=== PATIENT | male | born 1965 | race Asian ===

== ENCOUNTER 2018-10-11 14:09 | Inpatient (IN) | payer SELFPAY ==
[~2018-10-11] VITALS: Ht 170.2 cm; Wt 68.0 kg
[2018-10-11] VITALS (14 sets, daily range): BP systolic 77–108; BP diastolic 46–83
[2018-10-11] MEDS ORDERED: Cefepime HCl 1 GM in NS 55 ML IV STA (14:15)
[2018-10-11] MEDS ORDERED: Acetaminophen 650 MG SUPP RECTAL ONE (14:15)
[2018-10-11] MEDS ORDERED: Vancomycin 1 GM in NS 275 ML IV ONE (14:15)
--- NOTE | 2018-10-11 14:21 | NUR ---
ED Nurse Note: Patient brought in by ambulance RA [id number] from [facility], chief complaint is fever. Rectal temp 102.[address] Yarbrough made aware. patient is on mechanical vent.
--- NOTE | 2018-10-11 14:21 | Emergency Room Report ---
History of Present Illness General Chief Complaint: Fever Source: EMS Present Illness HPI Patient presents with altered level of consciousness. Apparently there was some respiratory distress and his oxygen saturation was low at 87% before suctioning. Paramedics found that oxygen saturation was 97%. He has a tracheostomy tube. They continue high flow oxygen on the way in. His blood pressure was low and a fluid bolus was begun. He had a 22-gauge IV was established in the field. According to paramedics patient is Full Code. POLST not available H/O CVA H/O tracg H/O G tube Allergies: Coded Allergies: No Known Allergies (Unverified , 10/11/18) Patient History Limited by: medical condition Past Medical History: see triage record Past Surgical History: other - Tracheostomy, gastrostomy Social [facility] Nursing Documentation: PMH: Agreed; PSxH: Agreed Nursing Documentation-PM Past Medical History: No History, Except For Hx Diabetes: Yes Hx Cerebrovascular Accident: Yes Review of Systems All Other Systems: limited Physical Exam Vital Signs Date Time Temp Pulse Resp B/P (MAP) Pulse Ox O2 Delivery O2 Flow Rate FiO2 10/11/18 14:11 147 22 92/58 100 Mechanical Ventilator 10/11/18 14:42 80 10/11/18 14:48 60.0 10/11/18 15:23 102.8 General Appearance: thin, Chronically Ill, Stupor Head: normocephalic, atraumatic Eyes: bilateral eye PERRL ENT: dry mucus membranes Neck: supple, tracheotomy Respiratory: respiratory distress, rales, rhonchi Cardiovascular #1: tachycardia Cardiovascular #2: 2+ radial (R), 2+ femoral (R) Gastrointestinal: non tender, other - Gastrostomy, decreased bowel sounds Genitourinary: penis normal Musculoskeletal: other Neurologic: responsive - But decreased mentation, DTRs symmetric - Decreased, other Psychiatric: other - Unresponsive to pain Skin: mottled, other - Febrile Procedures Critical Care Time Critical Care Time Total Critical Care Time: 90 min bedside evaluation and treatment excludes procedures (EKG, CVP, replacement of tracheostomy). Reason for critical care: Severe sepsis, hypotension, tracheostomy malfunction Possible complications: hypotension, hypertension, MA, shock, arrhythmias, metabolic acidosis, end organ damage, respiratory failure. Interventions: Fluid resuscitation, antibiotics, repeat evaluations discussion with admitting physician Course: Patient presented with fever, hypotension and respiratory distress. Fluid resuscitation begun and evaluation for sepsis. Lack of IV access and hypotension necessitated central line. Patient still hypotensive after fluid bolus and resuscitation and levo fed begun. Tracheostomy with balloon leak necessitated replacing tracheostomy. Blood pressure improved on Levophed and patient in less respiratory distress. Blood gas reviewed. Admitted to ICU. Consultations: nursing staff, EMS, RT, admitting MD Performed by: Dr. Yarbrough Tolerated well condition = critical but improved Central Line Central Line : Consent: Emergent Central Line Lumen: triple Maximal Sterile Barrier Tech: yes cap, yes mask, yes sterile gown, yes sterile gloves, yes large sterile sheet, yes hand hygiene, yes chlorhexidine prep Central Line Postion: femoral (R) Anesthesia: None Complications: none Central Line Post Position: sutured, good blood return Attempts: One Patient Tolerated: Well Complications: None Progress EBL = 5 ml Additional Procedure Procedure Narrative Replaced trach as not getting volumes. Old trach removed with suction. New trach replaced with ease. Secured by RT. Medical Decision Making Diagnostic Impression: Primary Impression: Severe sepsis Additional Impressions: Pneumonia Qualified Codes: J18.9 - Pneumonia, unspecified organism UTI (urinary tract infection) Qualified Codes: N39.0 - Urinary tract infection, site not specified Renal failure Qualified Codes: N17.9 - Acute kidney failure, unspecified ER Course Patient presents with fever, hypotension and respiratory distress and hypoxia. Differential includes pneumonia, sepsis, severe sepsis amongst others. He also need to exclude myocardial infarction. Patient will be evaluated with EKG, chest x-ray and labs. The patient needs to be placed on a ventilator illness he had some respiratory distress at this time. BP better but still tachycardic. Less resp distress. CVP started as poor IV access. Unchanged MS. Still hot and good cap fill 14:55. EKG ST. CXR with right infiltrate. Leukocytosis with minimal anemia. Acute renal failure. Elevated lactic acid pyuria. Triple antibiotics begun. Start levophed as BP still low. Replaced tracheostomy as there is a little leak in the patients not receiving tidal volumes. Blood gas acceptable. Dr. Flores covered by Dr. Carter who cannot admit the patient. Discussed in detail with Dr. Aaron. Vital signs improved on Levophed. Lactate is improving. Less resp distress. Laboratory Tests Test 10/11/18 14:23 10/11/18 15:00 10/11/18 16:01 10/11/18 17:10 White Blood Count 13.8 K/UL (4.8-10.8) H Red Blood Count 3.23 M/UL (4.70-6.10) L Hemoglobin 10.2 G/DL (14.2-18.0) L Hematocrit 30.2 % (42.0-52.0) L Mean Corpuscular Volume 94 FL (80-99) Mean Corpuscular Hemoglobin 31.7 PG (27.0-31.0) H Mean Corpuscular Hemoglobin Concent 33.8 G/DL (32.0-36.0) Red Cell Distribution Width 13.5 % (11.6-14.8) Platelet Count 345 K/UL (150-450) Mean Platelet Volume 5.1 FL (6.5-10.1) L Neutrophils (%) (Auto) 75.5 % (45.0-75.0) H Lymphocytes (%) (Auto) 19.4 % (20.0-45.0) L Monocytes (%) (Auto) 4.2 % (1.0-10.0) Eosinophils (%) (Auto) 0.1 % (0.0-3.0) Basophils (%) (Auto) 0.8 % (0.0-2.0) Prothrombin Time 13.1 SEC (9.30-11.50) H Prothrombin Time INR 1.3 (0.9-1.1) H PTT 33 SEC (23-33) Sodium Level 132 MMOL/L (136-145) L Potassium Level 4.7 MMOL/L (3.5-5.1) Chloride Level 97 MMOL/L (98-107) L Carbon Dioxide Level 22 MMOL/L (21-32) Anion Gap 13 mmol/L (5-15) Blood Urea Nitrogen 63 mg/dL (7-18) H Creatinine 2.0 MG/DL (0.55-1.30) H Estimate Glomerular Filtration Rate 35.3 mL/min (>60) Glucose Level 184 MG/DL (74-106) H Lactic Acid Level 5.50 mmol/L (0.4-2.0) H 2.80 mmol/L (0.66-2.22) H Calcium Level 10.1 MG/DL (8.5-10.1) Magnesium Level 1.8 MG/DL (1.8-2.4) Total Bilirubin 0.2 MG/DL (0.2-1.0) Aspartate Amino Transferase (AST) 66 U/L (15-37) H Alanine Aminotransferase (ALT) 53 U/L (12-78) Alkaline Phosphatase 178 U/L (46-116) H Total Creatine Kinase 540 U/L (26-308) H Troponin I 0.221 ng/mL (0.000-0.056) Pro-B-Type Natriuretic Peptide 595 pg/mL (0-125) H Total Protein 8.5 G/DL (6.4-8.2) H Albumin 2.5 G/DL (3.4-5.0) L Globulin 6.0 g/dL Albumin/Globulin Ratio 0.4 (1.0-2.7) L Urine Color Yellow Urine Appearance Turbid Urine pH 5 (4.5-8.0) Urine Specific Branch 1.015 (1.005-1.035) Urine Protein 2+ (NEGATIVE) H Urine Glucose (UA) Negative (NEGATIVE) Urine Ketones Negative (NEGATIVE) Urine Blood 5+ (NEGATIVE) H Urine Nitrite Negative (NEGATIVE) Urine Bilirubin Negative (NEGATIVE) Urine Urobilinogen Normal MG/DL (0.0-1.0) Urine Leukocyte Esterase 3+ (NEGATIVE) H Urine RBC Tntc /HPF (0 - 0) H Urine WBC Tntc /HPF (0 - 0) H Urine Squamous Epithelial Cells Occasional /LPF Urine Calcium Oxalate Crystals Few /LPF (NONE) Urine Bacteria Many /HPF (NONE) H Arterial Blood pH 7.408 (7.350-7.450) Arterial Blood Partial Pressure CO2 30.9 mmHg (35.0-45.0) L Arterial Blood Partial Pressure O2 74.8 mmHg (75.0-100.0) L Arterial Blood HCO3 19.1 mmol/L (22.0-26.0) L Arterial Blood Oxygen Saturation 92.9 % (95-100) L Arterial Blood Base Excess -5.0 (-2-2) L José Miguel Test Positive Test 10/11/18 19:45 10/11/18 21:10 10/11/18 22:00 White Blood Count 12.2 K/UL (4.8-10.8) H Red Blood Count 2.55 M/UL (4.70-6.10) L Hemoglobin 8.1 G/DL (14.2-18.0) L Hematocrit 23.8 % (42.0-52.0) L Mean Corpuscular Volume 93 FL (80-99) Mean Corpuscular Hemoglobin 31.8 PG (27.0-31.0) H Mean Corpuscular Hemoglobin Concent 34.1 G/DL (32.0-36.0) Red Cell Distribution Width 13.5 % (11.6-14.8) Platelet Count 241 K/UL (150-450) Mean Platelet Volume 5.1 FL (6.5-10.1) L Neutrophils (%) (Auto) 79.8 % (45.0-75.0) H Lymphocytes (%) (Auto) 17.8 % (20.0-45.0) L Monocytes (%) (Auto) 1.9 % (1.0-10.0) Eosinophils (%) (Auto) 0.1 % (0.0-3.0) Basophils (%) (Auto) 0.5 % (0.0-2.0) Sodium Level 136 MMOL/L (136-145) Potassium Level 4.6 MMOL/L (3.5-5.1) Chloride Level 105 MMOL/L (98-107) Carbon Dioxide Level 22 MMOL/L (21-32) Anion Gap 9 mmol/L (5-15) Blood Urea Nitrogen 51 mg/dL (7-18) H Creatinine 1.4 MG/DL (0.55-1.30) H Estimate Glomerular Filtration Rate 53.2 mL/min (>60) Glucose Level 168 MG/DL (74-106) H Hemoglobin A1c 9.0 % (4.3-6.0) H Lactic Acid Level 2.40 mmol/L (0.4-2.0) H 3.00 mmol/L (0.66-2.22) H Calcium Level 8.2 MG/DL (8.5-10.1) L Troponin I 0.261 ng/mL (0.000-0.056) Thyroid Stimulating Hormone (TSH) 0.415 uiU/mL (0.358-3.740) Arterial Blood pH 7.390 (7.350-7.450) Arterial Blood Partial Pressure CO2 32.5 mmHg (35.0-45.0) L Arterial Blood Partial Pressure O2 109.5 mmHg (75.0-100.0) H Arterial Blood HCO3 19.2 mmol/L (22.0-26.0) L Arterial Blood Oxygen Saturation 97.4 % (95-100) Arterial Blood Base Excess -5.1 (-2-2) L José Miguel Test Positive EKG Diagnostic Results Rate: tachycardiac ST Segments: no acute changes Rhythm Strip Diag. Results EP Interpretation: yes Rhythm: no PVC's, no ectopy, other - ST Chest X-Ray Diagnostic Results Chest X-Ray Diagnostic Results : Chest X-Ray Ordered: Yes # of Views/Limited/Complete: 1 View Indication: Other EP Interpretation: Yes Interpretation: no effusion, no pneumothorax, other - bilat infiltrates, trach , more on R Impression: Other Electronically Signed by: Electronically signed by Jorge A Yarbrough MD Last Vital Signs Date Time Temp Pulse Resp B/P (MAP) Pulse Ox O2 Delivery O2 Flow Rate FiO2 10/12/18 00:00 98.3 107 24 102/67 (79) 100 10/11/18 23:01 40 10/11/18 19:17 Mechanical Ventilator 6.0 Status: improved Disposition: ADMITTED INPATIENT Condition: Critical Jorge A Yarbrough MD Oct 11, 2018 14:21
[2018-10-11 14:45] LABS: BASOPHILS % (AUTO) 0.8 % (0.0-2.0); EOSINOPHILS % (AUTO) 0.1 % (0.0-3.0); HEMATOCRIT 30.2 % (42.0-52.0); HEMOGLOBIN 10.2 G/DL (14.2-18.0); LYMPHOCYTES % (AUTO) 19.4 % (20.0-45.0); MEAN CORPUSCULAR VOLUME 94 FL (80-99); MONOCYTES % (AUTO) 4.2 % (1.0-10.0); NEUTROPHILS % (AUTO) 75.5 % (45.0-75.0); PLATELET COUNT 345 K/UL (150-450); RED BLOOD COUNT 3.23 M/UL (4.70-6.10); RED CELL DISTRIBUTION WIDTH 13.5 % (11.6-14.8); WHITE BLOOD COUNT 13.8 K/UL (4.8-10.8)
[2018-10-11 14:51] LABS: INR 1.3 (0.9-1.1)
[2018-10-11 14:59] LABS: ANION GAP 13 mmol/L (5-15); BLOOD UREA NITROGEN 63 mg/dL (7-18); CALCIUM 10.1 MG/DL (8.5-10.1); CARBON DIOXIDE 22 MMOL/L (21-32); CHLORIDE 97 MMOL/L (98-107); POTASSIUM 4.7 MMOL/L (3.5-5.1); SODIUM 132 MMOL/L (136-145)
[2018-10-11 15:15] LABS: ALANINE AMINOTRANSFERASE 53 U/L (12-78); ALBUMIN 2.5 G/DL (3.4-5.0); ALBUMIN/GLOBULIN RATIO 0.4 (1.0-2.7); ALKALINE PHOSPHATASE 178 U/L (46-116); ASPARTATE AMINO TRANSFERASE 66 U/L (15-37); BILIRUBIN,TOTAL 0.2 MG/DL (0.2-1.0); CREATINE KINASE 540 U/L (26-308)
--- NOTE | 2018-10-11 15:23 | NUR ---
ED Nurse Note: Dr. Yarbrough made aware of the low BP, see flowsheet, Dr. Yarbrough said to monitor with bolus being infusing.
[2018-10-11] MEDS ORDERED: Albuterol/Ipratropium 3ml neb HHN STA (15:44)
[2018-10-11 15:49] LABS: APPEARANCE,URINE TURBID; BILIRUBIN, URINE NEGATIVE (NEGATIVE); GLUCOSE, URINE (UA) NEGATIVE (NEGATIVE); KETONES,URINE NEGATIVE (NEGATIVE); LEUKOCYTE ESTERASE ,URINE 3+ (NEGATIVE); NITRITE,URINE NEGATIVE (NEGATIVE); PH,URINE 5 (4.5-8.0); PROTEIN,URINE 2+ (NEGATIVE); UROBILINOGEN,URINE NORMAL MG/DL (0.0-1.0)
[2018-10-11 15:50] LABS: COLOR,URINE YELLOW
--- NOTE | 2018-10-11 16:57 | Diagnostic Imaging Report ---
Indication: Shortness of breath Technique: One view of the chest Comparison: none Findings: Bilateral mostly interstitial infiltrates are seen in the mid and lower lungs, right slightly greater than left. The pleural spaces are clear. Heart size is normal. There is a tracheostomy Impression: Bilateral right greater than left mostly interstitial infiltrates. Appearance nonspecific as regards etiology. Correlate with clinical findings
--- NOTE | 2018-10-11 17:49 | NUR ---
ED Nurse Note: Patient's BP was 91/58 with Levophed drip on 28mcg/min. endorsed to Safia SHARIF
--- NOTE | 2018-10-11 17:50 | NUR ---
ED Nurse Note: report given to KOLE Baig patient transferred to ICU, endorsed all plan of care. Patient's BP was 91/58, Dr. Yarbrough made aware. upon assessment, sacral pressure ulcer was noted and border dressing was applied, unable to take picture, endorsed to Safia SHARIF.
--- NOTE | 2018-10-11 18:00 | NUR ---
NURSE NOTES: Pt arrived in the unit via gurney. No belongings. Pt is obtunded. Sinus tachy in 110-120's. Trach to vent. S 6, AC 16, TV 450, FiO2 40%, P 5. No respiratory distress noted. GT in place. Castrejon in place draining to gravity. Stage 2 open wound on sacrum noted. Would picture taken and uploaded. Dressing done per wound care protocol. Right femoral TLC patent and asymptomatic. Bed in lowest position. Side rails up x3. Will resume plan of care.
[2018-10-11] MEDS ORDERED: ASPIR 8181 MG GT (18:19)
[2018-10-11] MEDS ORDERED: ATORVASTATIN CA40 MG GT (18:19)
[2018-10-11] MEDS ORDERED: PANTOPRAZOLE SO40 MG GT (18:19)
[2018-10-11] MEDS ORDERED: VITAMIN D400 INTLU GT (18:19)
[2018-10-11] MEDS ORDERED: HEPARIN SO5000 UNIT2 SUBQ (18:19)
[2018-10-11] MEDS ORDERED: Acetaminophen 650 MG SUPP RECTAL PRN (19:00)
[2018-10-11] MEDS ORDERED: Vasopressin 100 UNITS in NS 95 ML IV SCH (19:00)
[2018-10-11] MEDS ORDERED: Midazolam 2mg/2ml Inj IVP PRN (19:00)
[2018-10-11] MEDS ORDERED: Albuterol/Ipratropium 3ml neb HHN PRN (19:00)
--- NOTE | 2018-10-11 19:00 | NUR ---
NURSE NOTES: Called Dr Aaron for admission orders at 1824. Dr Lou called back. Updated doctor with pt's current condition. Orders received, noted, and carried out.
--- NOTE | 2018-10-11 19:20 | NUR ---
HAND-OFF: Report given to KOLE Rankin.
[2018-10-11] MEDS: D5NS 1,000 ML IV SCH (19:32)
--- NOTE | 2018-10-11 19:35 | NUR ---
CASE MANAGEMENT: REVIEW 53/M HUGH FROM [facility] CC: FEVER SI: SEPSIS . PNA . UTI T 102.8 HR 144 RR 38 BP 81/62 SAT 99% MECH VENT FIO2 80 WBC 13.8 NA 132 BUN 63 CR 2.0 LACTIC ACID 5.50 TROPONIN I 0.221 IS: TYLENOL RECTAL X1 NS IVF BOLUS X1 LEVOFLOXACIN IV X1 CEFEPIME IV X1 VANCO IV X1 ALBUTEROL HHN X1 LEVOPHED IV X1 PATIENT ADMITTED TO ICU 10/11/2018 DCP: PATIENT IS FROM [facility] Addendum: 10/15/18 at 0913 by Magdalena Mireles INTERQUAL MET FOR ACUTE- SH
--- NOTE | 2018-10-11 20:00 | NUR ---
NURSE NOTES: Patient received from Gifty SHARIF. Patient is obtunded, does not open eyes to stimulus, responds to localized pain. Patient is trached to ventilator with settings of AC 16, 450tv, 40% fio2 and peep of 5. Patient noted to have Castrejon and G-tube. Patient currently NPO status. Patient running Levophed, Vasopressin and D5NS at 100ml/hr via R femoral TLC, client also has R hand 22G SL. Client noted to have Sacral wound.
[2018-10-11 20:08] LABS: BASOPHILS % (AUTO) 0.5 % (0.0-2.0); EOSINOPHILS % (AUTO) 0.1 % (0.0-3.0); HEMATOCRIT 23.8 % (42.0-52.0); HEMOGLOBIN 8.1 G/DL (14.2-18.0); LYMPHOCYTES % (AUTO) 17.8 % (20.0-45.0); MEAN CORPUSCULAR VOLUME 93 FL (80-99); MONOCYTES % (AUTO) 1.9 % (1.0-10.0); NEUTROPHILS % (AUTO) 79.8 % (45.0-75.0); PLATELET COUNT 241 K/UL (150-450); RED BLOOD COUNT 2.55 M/UL (4.70-6.10); RED CELL DISTRIBUTION WIDTH 13.5 % (11.6-14.8); WHITE BLOOD COUNT 12.2 K/UL (4.8-10.8)
[2018-10-11 20:41] LABS: ANION GAP 9 mmol/L (5-15); BLOOD UREA NITROGEN 51 mg/dL (7-18); CALCIUM 8.2 MG/DL (8.5-10.1); CARBON DIOXIDE 22 MMOL/L (21-32); CHLORIDE 105 MMOL/L (98-107); CREATININE 1.4 MG/DL (0.55-1.30); POTASSIUM 4.6 MMOL/L (3.5-5.1); SODIUM 136 MMOL/L (136-145)
[2018-10-11] MEDS: Heparin 5000 units/ml inj SUBQ SCH (21:00)
--- NOTE | 2018-10-11 21:22 | Cardiology Progress Note ---
Assessment/Plan Assessment/Plan The patient is seen and examined, full consult note is dictated. Objective Last 24 Hour Vital Signs Date Time Temp Pulse Resp B/P (MAP) Pulse Ox O2 Delivery O2 Flow Rate FiO2 10/11/18 21:00 107 30 40 10/11/18 19:27 91/58 10/11/18 19:17 99.8 135 23 91/58 100 Mechanical Ventilator 6.0 40 10/11/18 19:16 99.8 135 23 91/58 100 Mechanical Ventilator 6.0 40 10/11/18 19:00 118 83/52 (62) 10/11/18 18:42 118 25 40 10/11/18 18:30 118 88/50 (63) 10/11/18 18:23 118 10/11/18 18:00 Mechanical Ventilator 10/11/18 18:00 40 10/11/18 18:00 120 77/46 (56) 10/11/18 18:00 98.1 10/11/18 17:43 88/51 10/11/18 17:38 81/59 10/11/18 17:33 Mechanical Ventilator 10/11/18 17:33 85/49 10/11/18 17:28 82/48 10/11/18 17:22 81/49 10/11/18 17:18 82/58 10/11/18 17:14 123 30 40 10/11/18 17:13 81/48 10/11/18 17:08 82/50 10/11/18 17:03 81/51 10/11/18 16:58 79/51 10/11/18 16:53 79/51 10/11/18 16:48 78/48 10/11/18 16:43 73/49 10/11/18 16:38 71/48 10/11/18 16:33 74/45 10/11/18 16:28 73/41 10/11/18 16:23 74/47 10/11/18 16:07 126 28 98 Mechanical Ventilator 40 10/11/18 15:58 127 32 99 Mechanical Ventilator 40 10/11/18 15:58 40 10/11/18 15:54 102.8 123 23 94/47 100 Mechanical Ventilator 60.0 40 10/11/18 15:54 128 23 Mechanical Ventilator 60.0 40 10/11/18 15:23 102.8 135 23 81/62 100 Mechanical Ventilator 60.0 40 10/11/18 15:08 40 10/11/18 14:48 142 38 Mechanical Ventilator 60.0 80 10/11/18 14:42 144 36 80 10/11/18 14:11 147 22 92/58 100 Mechanical Ventilator Laboratory Tests Test 10/11/18 14:23 10/11/18 15:00 10/11/18 16:01 10/11/18 17:10 White Blood Count 13.8 K/UL (4.8-10.8) H Red Blood Count 3.23 M/UL (4.70-6.10) L Hemoglobin 10.2 G/DL (14.2-18.0) L Hematocrit 30.2 % (42.0-52.0) L Mean Corpuscular Volume 94 FL (80-99) Mean Corpuscular Hemoglobin 31.7 PG (27.0-31.0) H Mean Corpuscular Hemoglobin Concent 33.8 G/DL (32.0-36.0) Red Cell Distribution Width 13.5 % (11.6-14.8) Platelet Count 345 K/UL (150-450) Mean Platelet Volume 5.1 FL (6.5-10.1) L Neutrophils (%) (Auto) 75.5 % (45.0-75.0) H Lymphocytes (%) (Auto) 19.4 % (20.0-45.0) L Monocytes (%) (Auto) 4.2 % (1.0-10.0) Eosinophils (%) (Auto) 0.1 % (0.0-3.0) Basophils (%) (Auto) 0.8 % (0.0-2.0) Prothrombin Time 13.1 SEC (9.30-11.50) H Prothromb Time International Ratio 1.3 (0.9-1.1) H Activated Partial Thromboplast Time 33 SEC (23-33) Sodium Level 132 MMOL/L (136-145) L Potassium Level 4.7 MMOL/L (3.5-5.1) Chloride Level 97 MMOL/L (98-107) L Carbon Dioxide Level 22 MMOL/L (21-32) Anion Gap 13 mmol/L (5-15) Blood Urea Nitrogen 63 mg/dL (7-18) H Creatinine 2.0 MG/DL (0.55-1.30) H Estimat Glomerular Filtration Rate 35.3 mL/min (>60) Glucose Level 184 MG/DL (74-106) H Lactic Acid Level 5.50 mmol/L (0.4-2.0) H 2.80 mmol/L (0.66-2.22) H Calcium Level 10.1 MG/DL (8.5-10.1) Magnesium Level 1.8 MG/DL (1.8-2.4) Total Bilirubin 0.2 MG/DL (0.2-1.0) Aspartate Amino Transf (AST/SGOT) 66 U/L (15-37) H Alanine Aminotransferase (ALT/SGPT) 53 U/L (12-78) Alkaline Phosphatase 178 U/L (46-116) H Total Creatine Kinase 540 U/L (26-308) H Troponin I 0.221 ng/mL (0.000-0.056) Pro-B-Type Natriuretic Peptide 595 pg/mL (0-125) H Total Protein 8.5 G/DL (6.4-8.2) H Albumin 2.5 G/DL (3.4-5.0) L Globulin 6.0 g/dL Albumin/Globulin Ratio 0.4 (1.0-2.7) L Urine Color Yellow Urine Appearance Turbid Urine pH 5 (4.5-8.0) Urine Specific [place] 1.015 (1.005-1.035) Urine Protein 2+ (NEGATIVE) H Urine Glucose (UA) Negative (NEGATIVE) Urine Ketones Negative (NEGATIVE) Urine Blood 5+ (NEGATIVE) H Urine Nitrite Negative (NEGATIVE) Urine Bilirubin Negative (NEGATIVE) Urine Urobilinogen Normal MG/DL (0.0-1.0) Urine Leukocyte Esterase 3+ (NEGATIVE) H Urine RBC Tntc /HPF (0 - 0) H Urine WBC Tntc /HPF (0 - 0) H Urine Squamous Epithelial Cells Occasional /LPF Urine Calcium Oxalate Crystals Few /LPF (NONE) Urine Bacteria Many /HPF (NONE) H Arterial Blood pH 7.408 (7.350-7.450) Arterial Blood Partial Pressure CO2 30.9 mmHg (35.0-45.0) L Arterial Blood Partial Pressure O2 74.8 mmHg (75.0-100.0) L Arterial Blood HCO3 19.1 mmol/L (22.0-26.0) L Arterial Blood Oxygen Saturation 92.9 % (95-100) L Arterial Blood Base Excess -5.0 (-2-2) L José Miguel Test Positive Test 10/11/18 19:45 White Blood Count 12.2 K/UL (4.8-10.8) H Red Blood Count 2.55 M/UL (4.70-6.10) L Hemoglobin 8.1 G/DL (14.2-18.0) L Hematocrit 23.8 % (42.0-52.0) L Mean Corpuscular Volume 93 FL (80-99) Mean Corpuscular Hemoglobin 31.8 PG (27.0-31.0) H Mean Corpuscular Hemoglobin Concent 34.1 G/DL (32.0-36.0) Red Cell Distribution Width 13.5 % (11.6-14.8) Platelet Count 241 K/UL (150-450) Mean Platelet Volume 5.1 FL (6.5-10.1) L Neutrophils (%) (Auto) 79.8 % (45.0-75.0) H Lymphocytes (%) (Auto) 17.8 % (20.0-45.0) L Monocytes (%) (Auto) 1.9 % (1.0-10.0) Eosinophils (%) (Auto) 0.1 % (0.0-3.0) Basophils (%) (Auto) 0.5 % (0.0-2.0) Sodium Level 136 MMOL/L (136-145) Potassium Level 4.6 MMOL/L (3.5-5.1) Chloride Level 105 MMOL/L (98-107) Carbon Dioxide Level 22 MMOL/L (21-32) Anion Gap 9 mmol/L (5-15) Blood Urea Nitrogen 51 mg/dL (7-18) H Creatinine 1.4 MG/DL (0.55-1.30) H Estimat Glomerular Filtration Rate 53.2 mL/min (>60) Glucose Level 168 MG/DL (74-106) H Hemoglobin A1c 9.0 % (4.3-6.0) H Lactic Acid Level 2.40 mmol/L (0.4-2.0) H Calcium Level 8.2 MG/DL (8.5-10.1) L Troponin I 0.261 ng/mL (0.000-0.056) Thyroid Stimulating Hormone (TSH) 0.415 uiU/mL (0.358-3.740) Davy Estrada MD Oct 11, 2018 21:22
--- NOTE | 2018-10-11 22:00 | NUR ---
NURSE NOTES: Patient noted to be having Diarrhea. Rectal tube inserted and stool collected and sent for C-diff analysis. Patient cleaned and repositioned.
[2018-10-11] MEDS: Hydrocortisone 100mg Inj IV SCH (22:29)
[2018-10-11] MEDS: Zoysn 3.37gm in NS 100ML IVPB SCH (22:30)
[2018-10-12] VITALS (42 sets, daily range): BP systolic 81–116; BP diastolic 47–74
--- NOTE | 2018-10-12 | NUR ---
NURSE NOTES: Rectal tube in place and intact, patient repositioned. Patient suctioned and oral care provided. Afebrile, pressors being tapered down.
--- NOTE | 2018-10-12 02:00 | NUR ---
NURSE NOTES: Patient repositioned, patient still making diarrhea. Levophed has been place on hold for now as BP is stable at the moment. No acute distress at this time. Fluids remains ongoing, Vasopressin at fixed rate of 0.04mcg.
--- NOTE | 2018-10-12 04:00 | NUR ---
NURSE NOTES: Patient cleaned and repositioned. NAD.
[2018-10-12] MEDS: D5NS 1,000 ML IV SCH ×3 (05:00→22:00)
[2018-10-12 05:37] LABS: HEMATOCRIT 24.1 % (42.0-52.0); HEMOGLOBIN 8.1 G/DL (14.2-18.0); MEAN CORPUSCULAR VOLUME 93 FL (80-99); PLATELET COUNT 237 K/UL (150-450); RED BLOOD COUNT 2.58 M/UL (4.70-6.10); RED CELL DISTRIBUTION WIDTH 13.6 % (11.6-14.8); WHITE BLOOD COUNT 21.1 K/UL (4.8-10.8)
[2018-10-12] MEDS: Hydrocortisone 100mg Inj IV SCH ×3 (05:43→21:41)
[2018-10-12] MEDS: Zoysn 3.37gm in NS 100ML IVPB SCH ×3 (05:43→21:41)
--- NOTE | 2018-10-12 06:00 | NUR ---
NURSE NOTES: Patient repositioned and suctioned. VS stable, pressors ongoing. No new changes
[2018-10-12 06:08] LABS: INR 1.3 (0.9-1.1)
[2018-10-12 06:25] LABS: ANION GAP 12 mmol/L (5-15); BLOOD UREA NITROGEN 29 mg/dL (7-18); CALCIUM 8.6 MG/DL (8.5-10.1); CARBON DIOXIDE 20 MMOL/L (21-32); CHLORIDE 100 MMOL/L (98-107); CREATININE 1.1 MG/DL (0.55-1.30); POTASSIUM 4.2 MMOL/L (3.5-5.1); SODIUM 132 MMOL/L (136-145)
[2018-10-12 07:22] LABS: % IRON SATURATION 9 % (15-50); IRON 14 ug/dL (50-175); TOTAL IRON BINDING CAPACITY 152 ug/dL (250-450)
--- NOTE | 2018-10-12 08:00 | NUR ---
NURSE NOTES: Received patient obtunded, withdraws to pain. monitoring coordinator showing SR. Patient is trach to vent dependent. Shiley 6, AC 16 VT 450 FioO2 40% Peep of 5. RR 17 saturating 100 %. Lung sounds diminished bilaterally. Patient is NPO with nutrition consult on the case to initiate feeding. Code status confirmed with Dr. Lou - DNR / DNI. Ethics consult on case due to inability to locate family DONELL who has signed the POLST. bilingual branch manager notified. Rectal tube intact. Hyperactive bowel sounds on all 4 quadrants. Non-tender, round, soft abdomen. Patient has conrad catheter, diuresing 150- 200 cc/hr. Dr. Lou notified. Patient has sacral stage 2. P200 amttress ordered. R fem TLC. D5 NS at 100 cc/hr. LEvo at 2 mcg increased to 4mcg/min. Vasopressing at a fixed dose of 0.04 mcg/hr. Patient lab values reported to Dr. Lou. VSS at the moment. Will continue plan of care.
--- NOTE | 2018-10-12 08:39 | Pulmonolgy Critical Care Note ---
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 Respiratory: monitor respiratory rate, adjust FIO2, other - PS trial, attempt to get back to TC, PRN HHN's Cardiac: continue pressors - wean NE to keep MAP > 60, continue Vaso, titrate stress dose steroids, trend trops and LA, F/U TTE Renal: keep IV fluid, check electrolytes Infectious Disease: check cultures, continue antibiotics - Vanco/Zosyn per ID Gastrointestinal: start feedings Endocrine: check TSH, other - F/U cortisol Hematologic: monitor H/H Neurologic: keep patient comfortable Prophylaxis: Protonix, Heparin Disposition: keep in ICU Time Spent (Minutes): 70 - attempts made to reach SUBACUTE facility, next of kin, records reviewed Notes Reviewed: cardio, ID, other - DNAR/DNI, PER POLST COMFORT MEASURES ONLY - ATTEMPTING TO CLARIFY WITH FACILITY. ETHICS EVAL REQUESTED Discussed with: nurses, consultants Critical Care - Objective Last 24 Hour Vital Signs Date Time Temp Pulse Resp B/P (MAP) Pulse Ox O2 Delivery O2 Flow Rate FiO2 10/12/18 07:00 99 17 93/61 (72) 100 10/12/18 07:00 88/64 10/12/18 06:40 94 30 40 10/12/18 06:30 98 38 87/60 (69) 100 10/12/18 06:00 95 25 102/66 (78) 100 10/12/18 06:00 102/66 10/12/18 05:30 93 27 99/70 (80) 100 10/12/18 05:07 101 30 40 10/12/18 05:00 75/45 10/12/18 05:00 101 26 101/55 (70) 100 10/12/18 04:00 Mechanical Ventilator 10/12/18 04:00 40 10/12/18 04:00 109 10/12/18 04:00 99.5 111 26 87/54 (65) 100 10/12/18 03:04 118 30 40 10/12/18 03:00 114 26 106/65 (79) 100 10/12/18 02:30 115 24 101/74 (83) 100 10/12/18 02:00 107/65 10/12/18 02:00 113 24 102/62 (75) 100 10/12/18 01:30 109 20 109/65 (80) 100 10/12/18 01:00 107 18 109/67 (81) 100 10/12/18 01:00 106/69 10/12/18 00:54 108 30 40 10/12/18 00:00 98.3 107 24 102/67 (79) 100 10/12/18 00:00 40 10/12/18 00:00 Mechanical Ventilator 10/12/18 00:00 110/70 10/12/18 00:00 105 10/11/18 23:30 108 19 101/64 (76) 100 10/11/18 23:01 108 34 40 10/11/18 23:00 109 20 108/83 (91) 100 10/11/18 23:00 100/65 10/11/18 22:30 106 26 103/59 (74) 100 10/11/18 22:00 108 29 98/63 (75) 100 10/11/18 22:00 91/58 10/11/18 21:30 108 25 93/63 (73) 100 10/11/18 21:00 107 30 40 10/11/18 21:00 109 31 100/67 (78) 100 10/11/18 20:30 106 29 82/64 (70) 100 10/11/18 20:00 98.8 110 96/63 (74) 10/11/18 20:00 109 10/11/18 20:00 Mechanical Ventilator 10/11/18 20:00 40 10/11/18 19:27 91/58 10/11/18 19:17 99.8 135 23 91/58 100 Mechanical Ventilator 6.0 40 10/11/18 19:16 99.8 135 23 91/58 100 Mechanical Ventilator 6.0 40 10/11/18 19:00 118 83/52 (62) 10/11/18 18:42 118 25 40 10/11/18 18:30 118 88/50 (63) 10/11/18 18:23 118 10/11/18 18:00 Mechanical Ventilator 10/11/18 18:00 40 10/11/18 18:00 120 77/46 (56) 10/11/18 18:00 98.1 10/11/18 17:43 88/51 10/11/18 17:38 81/59 10/11/18 17:33 Mechanical Ventilator 10/11/18 17:33 85/49 10/11/18 17:28 82/48 10/11/18 17:22 81/49 10/11/18 17:18 82/58 10/11/18 17:14 123 30 40 10/11/18 17:13 81/48 10/11/18 17:08 82/50 10/11/18 17:03 81/51 10/11/18 16:58 79/51 10/11/18 16:53 79/51 10/11/18 16:48 78/48 10/11/18 16:43 73/49 10/11/18 16:38 71/48 10/11/18 16:33 74/45 10/11/18 16:28 73/41 10/11/18 16:23 74/47 10/11/18 16:07 126 28 98 Mechanical Ventilator 40 10/11/18 15:58 127 32 99 Mechanical Ventilator 40 10/11/18 15:58 40 10/11/18 15:54 102.8 123 23 94/47 100 Mechanical Ventilator 60.0 40 10/11/18 15:54 128 23 Mechanical Ventilator 60.0 40 10/11/18 15:23 102.8 135 23 81/62 100 Mechanical Ventilator 60.0 40 10/11/18 15:08 40 10/11/18 14:48 142 38 Mechanical Ventilator 60.0 80 10/11/18 14:42 144 36 80 10/11/18 14:11 147 22 92/58 100 Mechanical Ventilator Status: obtunded Condition: critical HEENT: atraumatic, normocephalic Neck: trach Lungs: rhonchi Heart: HR/BP unstable Abdomen: soft Extremities: no C/C/E Decubiti: location - sacral, stage - 2 Micro: Microbiology Date/Time Source Procedure Growth Status 10/11/18 15:00 Urine,Clean Catch Urine Culture - Preliminary Gram Negative Bacillus 1 Resulted 10/11/18 16:15 Rectum Received Blood Sugars: BS controlled Critical Care - Subjective ROS Limited/Unobtainable: Yes ICU Day: 2 Intubation Day: Trach Interval Events: 53 M Subacute resident, recent DC'd from [facility] after b cerebral infarctions S/P trach and PEG, POLST stating [employer]/DNAR. In the ER pt was started on NE via R F TLC, placed on the vent and transferred to the ICU. Now he is on 4 mcg NE and stable on the vent. LA downtrending. No further hx obtainable. Condition: critical IV Access: central EKG Rhythm: Sinus Rhythm FI02: 40 Vent Support Breath Rate: 16 Vent Support Mode: AC Vent Tidal Volume: 450 Sputum Amount: Moderate PEEP: 5.0 PIP: 24 Fluids: D5NS@100 I&O: Intake and Output 10/11/18 10/12/18 19:00 07:00 Intake Total 1858.84 ml Output Total 350 ml 2725 ml Balance -350 ml -866.16 ml Intake IV Total 1858.84 ml Output Urine Total 350 ml 2725 ml Subjective: ISSAC CXR: b infiltrates Labs: Laboratory Tests Test 10/11/18 14:23 10/11/18 15:00 10/11/18 16:01 10/11/18 17:10 White Blood Count 13.8 K/UL (4.8-10.8) H Red Blood Count 3.23 M/UL (4.70-6.10) L Hemoglobin 10.2 G/DL (14.2-18.0) L Hematocrit 30.2 % (42.0-52.0) L Mean Corpuscular Volume 94 FL (80-99) Mean Corpuscular Hemoglobin 31.7 PG (27.0-31.0) H Mean Corpuscular Hemoglobin Concent 33.8 G/DL (32.0-36.0) Red Cell Distribution Width 13.5 % (11.6-14.8) Platelet Count 345 K/UL (150-450) Mean Platelet Volume 5.1 FL (6.5-10.1) L Neutrophils (%) (Auto) 75.5 % (45.0-75.0) H Lymphocytes (%) (Auto) 19.4 % (20.0-45.0) L Monocytes (%) (Auto) 4.2 % (1.0-10.0) Eosinophils (%) (Auto) 0.1 % (0.0-3.0) Basophils (%) (Auto) 0.8 % (0.0-2.0) Prothrombin Time 13.1 SEC (9.30-11.50) H Prothromb Time International Ratio 1.3 (0.9-1.1) H Activated Partial Thromboplast Time 33 SEC (23-33) Sodium Level 132 MMOL/L (136-145) L Potassium Level 4.7 MMOL/L (3.5-5.1) Chloride Level 97 MMOL/L (98-107) L Carbon Dioxide Level 22 MMOL/L (21-32) Anion Gap 13 mmol/L (5-15) Blood Urea Nitrogen 63 mg/dL (7-18) H Creatinine 2.0 MG/DL (0.55-1.30) H Estimat Glomerular Filtration Rate 35.3 mL/min (>60) Glucose Level 184 MG/DL (74-106) H Lactic Acid Level 5.50 mmol/L (0.4-2.0) H 2.80 mmol/L (0.66-2.22) H Calcium Level 10.1 MG/DL (8.5-10.1) Magnesium Level 1.8 MG/DL (1.8-2.4) Total Bilirubin 0.2 MG/DL (0.2-1.0) Aspartate Amino Transf (AST/SGOT) 66 U/L (15-37) H Alanine Aminotransferase (ALT/SGPT) 53 U/L (12-78) Alkaline Phosphatase 178 U/L (46-116) H Total Creatine Kinase 540 U/L (26-308) H Troponin I 0.221 ng/mL (0.000-0.056) Pro-B-Type Natriuretic Peptide 595 pg/mL (0-125) H Total Protein 8.5 G/DL (6.4-8.2) H Albumin 2.5 G/DL (3.4-5.0) L Globulin 6.0 g/dL Albumin/Globulin Ratio 0.4 (1.0-2.7) L Urine Color Yellow Urine Appearance Turbid Urine pH 5 (4.5-8.0) Urine Specific Cold[place] 1.015 (1.005-1.035) Urine Protein 2+ (NEGATIVE) H Urine Glucose (UA) Negative (NEGATIVE) Urine Ketones Negative (NEGATIVE) Urine Blood 5+ (NEGATIVE) H Urine Nitrite Negative (NEGATIVE) Urine Bilirubin Negative (NEGATIVE) Urine Urobilinogen Normal MG/DL (0.0-1.0) Urine Leukocyte Esterase 3+ (NEGATIVE) H Urine RBC Tntc /HPF (0 - 0) H Urine WBC Tntc /HPF (0 - 0) H Urine Squamous Epithelial Cells Occasional /LPF Urine Calcium Oxalate Crystals Few /LPF (NONE) Urine Bacteria Many /HPF (NONE) H Arterial Blood pH 7.408 (7.350-7.450) Arterial Blood Partial Pressure CO2 30.9 mmHg (35.0-45.0) L Arterial Blood Partial Pressure O2 74.8 mmHg (75.0-100.0) L Arterial Blood HCO3 19.1 mmol/L (22.0-26.0) L Arterial Blood Oxygen Saturation 92.9 % (95-100) L Arterial Blood Base Excess -5.0 (-2-2) L José Miguel Test Positive Test 10/11/18 19:45 10/11/18 21:10 10/11/18 22:00 10/12/18 04:00 White Blood Count 12.2 K/UL (4.8-10.8) H 21.1 K/UL (4.8-10.8) #H Red Blood Count 2.55 M/UL (4.70-6.10) L 2.58 M/UL (4.70-6.10) L Hemoglobin 8.1 G/DL (14.2-18.0) L 8.1 G/DL (14.2-18.0) L Hematocrit 23.8 % (42.0-52.0) L 24.1 % (42.0-52.0) L Mean Corpuscular Volume 93 FL (80-99) 93 FL (80-99) Mean Corpuscular Hemoglobin 31.8 PG (27.0-31.0) H 31.3 PG (27.0-31.0) H Mean Corpuscular Hemoglobin Concent 34.1 G/DL (32.0-36.0) 33.5 G/DL (32.0-36.0) Red Cell Distribution Width 13.5 % (11.6-14.8) 13.6 % (11.6-14.8) Platelet Count 241 K/UL (150-450) 237 K/UL (150-450) Mean Platelet Volume 5.1 FL (6.5-10.1) L 5.2 FL (6.5-10.1) L Neutrophils (%) (Auto) 79.8 % (45.0-75.0) H % (45.0-75.0) Lymphocytes (%) (Auto) 17.8 % (20.0-45.0) L % (20.0-45.0) Monocytes (%) (Auto) 1.9 % (1.0-10.0) % (1.0-10.0) Eosinophils (%) (Auto) 0.1 % (0.0-3.0) % (0.0-3.0) Basophils (%) (Auto) 0.5 % (0.0-2.0) % (0.0-2.0) Sodium Level 136 MMOL/L (136-145) 132 MMOL/L (136-145) L Potassium Level 4.6 MMOL/L (3.5-5.1) 4.2 MMOL/L (3.5-5.1) Chloride Level 105 MMOL/L (98-107) 100 MMOL/L (98-107) Carbon Dioxide Level 22 MMOL/L (21-32) 20 MMOL/L (21-32) L Anion Gap 9 mmol/L (5-15) 12 mmol/L (5-15) Blood Urea Nitrogen 51 mg/dL (7-18) H 29 mg/dL (7-18) H Creatinine 1.4 MG/DL (0.55-1.30) H 1.1 MG/DL (0.55-1.30) Estimat Glomerular Filtration Rate 53.2 mL/min (>60) > 60 mL/min (>60) Glucose Level 168 MG/DL (74-106) H 241 MG/DL (74-106) H Hemoglobin A1c 9.0 % (4.3-6.0) H 9.1 % (4.3-6.0) H Lactic Acid Level 2.40 mmol/L (0.4-2.0) H 3.00 mmol/L (0.66-2.22) H 3.10 mmol/L (0.4-2.0) H Calcium Level 8.2 MG/DL (8.5-10.1) L 8.6 MG/DL (8.5-10.1) Troponin I 0.261 ng/mL (0.000-0.056) 0.125 ng/mL (0.000-0.056) Thyroid Stimulating Hormone (TSH) 0.415 uiU/mL (0.358-3.740) 0.367 uiU/mL (0.358-3.740) Arterial Blood pH 7.390 (7.350-7.450) Arterial Blood Partial Pressure CO2 32.5 mmHg (35.0-45.0) L Arterial Blood Partial Pressure O2 109.5 mmHg (75.0-100.0) H Arterial Blood HCO3 19.2 mmol/L (22.0-26.0) L Arterial Blood Oxygen Saturation 97.4 % (95-100) Arterial Blood Base Excess -5.1 (-2-2) L José Miguel Test Positive Neutrophils % (Manual) Pending Lymphocytes % (Manual) Pending Platelet Estimate Pending Platelet Morphology Pending Reticulocyte Count Pending Sickle Cell Screen Pending Hemoglobin A Pending Hemoglobin A2 Pending Hemoglobin C Pending Hemoglobin F () Pending Hemoglobin S Pending Variant Hemoglobin Pending Hemoglobin Electrophoresis Interp Pending Hemoglobin Interpretation Pending Hemoglobin Solubility Pending Prothrombin Time 13.9 SEC (9.30-11.50) H Prothromb Time International Ratio 1.3 (0.9-1.1) H Stool Occult Blood Pending Iron Level 14 ug/dL (50-175) L Total Iron Binding Capacity 152 ug/dL (250-450) L Percent Iron Saturation 9 % (15-50) L Unsaturated Iron Binding 138 ug/dL (112-346) Ferritin 1637 NG/ML (8-388) H Vitamin B12 Level > 2000 PG/ML (193-986) H Folate 16.2 NG/ML (8.6-58.9) Cortisol AM Sample Pending Random Vancomycin Level 5.8 ug/mL Jordy Lou MD Oct 12, 2018 08:39
[2018-10-12] MEDS: Heparin 5000 units/ml inj SUBQ SCH ×2 (09:00→21:00)
[2018-10-12] MEDS: Vancomycin 750mg/NS 275ml IVPB SCH ×4 (09:00→21:00)
--- NOTE | 2018-10-12 10:00 | NUR ---
NURSE NOTES: Patient turned and repositioned. No new changes at this time. Dr. Lou, Dr. Piper, Dr. Judd at bedside. New orders obtained. Will continue to monitor patient. Bed on lowest position, HOB elevated, Bed alarm on for safety, will continue plan of care.
--- NOTE | 2018-10-12 10:15 | NUR ---
RESPIRATORY NOTE: Placed pt on trach collar with the cool aerosol 8L 30% FiO2, vent is stand by. Pt's tolerating well. No SOB or resp distress noted. RN Antonia made aware. Will continue to monitor pt.
--- NOTE | 2018-10-12 11:56 | NUR ---
RD ASSESSMENT & RECOMMENDATIONS SEE CARE ACTIVITY FOR COMPLETE ASSESSMENT DAILY ESTIMATED NEEDS: Needs based on Critical care, wound 57.7kg 22-30 kcals/kg 1878-8982 total kcals 1.25-2 g protein/kg 72-115 g total protein 25-30 mL/kg 6448-3019 total fluid mLs NUTRITION DIAGNOSIS: 1) Swallowing difficulty r/t respiratory status as evidenced by pt is vent dep via trach, PEg dep for all nutritional needs 2) Increased kcal and protein needs r/t wound healing and underweight status as evidenced by pt w/ stage 2 sacral wound, pt is 86% [place] Body Weight w/ generalized mild to moderate wasting. ENTERAL NUTRITION RECOMMENDATIONS: VITAL AF 1.2 @50ml/hr x24 hrs to provide 1200ml, 1440 kcal (25kcal/kg), 90g prot (1.55g/kg), 973ml free H2O - Start Vital AF 1.2 @20ml/hr for 6 hrs - Advance as tolerated 10ml/hr q4-6 hrs to goal - Flush per MD. HOB over 30 degrees ADDITIONAL RECOMMENDATIONS: 1) RE-calibrate bed scale w/ added P200 mattress + pump 2) Monitor BG, lytes daily w/ TF 3) Wound care: add JANUARY BID 4) Feed w/ hemodynamic stability, otherwise trophic feeds- gut integrity 5) Hypoglycemic agents for BG control (A1C 9.1)
--- NOTE | 2018-10-12 12:00 | NUR ---
NURSE NOTES: Patient turned and repositioned. P200 mattress put under patient. Wound care nurse at bedside. VSS. No distress noted at this time. WIll continue plan of care.
--- NOTE | 2018-10-12 13:20 | Consultation ---
History of Present Illness General Date patient seen: Oct 12, 2018 Chief Complaint: Fever Reason for Consultation: wounds Present Illness HPI 53 year old male with multiple medical comorbidities who is care dependant found to have altered mental status and respiratory insufficiency. On admission noted to have multiple wounds requiring care. surgery called to assist with care / management. patient seen in ICU, examined, chart reviewed. Allergies: Coded Allergies: No Known Allergies (Unverified , 10/11/18) Medication History Scheduled Aspirin* (Aspir 81*), 81 MG GT DAILY, (Reported) Atorvastatin Calcium* (Atorvastatin Calcium*), 80 MG GT BEDTIME, (Reported) Heparin Sod (Porcine) (Heparin Sodium*), 5,000 UNITS SUBQ EVERY 12 HOURS, ( Reported) Pantoprazole* (Pantoprazole*), 40 MG GT DAILY, (Reported) Vitamin D (Vitamin D3), 5,000 UNITS GT DAILY, (Reported) Patient History Limited by: medical condition History Provided By: Medical Record, PMD Healthcare decision maker N Resuscitation status Full Code Advanced Directive on File No Past Medical/Surgical History Past Medical/Surgical History: (1) Renal failure (2) Severe sepsis (3) UTI (urinary tract infection) (4) Pneumonia (5) Cerebral infarction (6) Encephalopathy (7) Lactic acid acidosis (8) Tracheostomy care (9) Feeding by G-tube (10) LUZ MARIA (acute kidney injury) (11) DNAR (do not attempt resuscitation) (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 Review of Systems ROS Narrative cannot obtain Physical Exam General Appearance: mild distress Lines, tubes and drains: other HEENT: other Neck: trach Respiratory/Chest: decreased breath sounds, other Cardiovascular/Chest: tachycardia Abdomen: soft, no organomegaly, no mass Extremities: other Skin Exam: other Neurologic: unresponsiveness, other Last 24 Hour Vital Signs Date Time Temp Pulse Resp B/P (MAP) Pulse Ox O2 Delivery O2 Flow Rate FiO2 10/12/18 12:00 Mechanical Ventilator 10/12/18 12:00 90 10/12/18 12:00 98.8 89 19 102/65 (77) 100 10/12/18 11:30 90 19 100/64 (76) 100 10/12/18 11:15 Trach Collar 8.0 30 10/12/18 11:15 97 Trach Collar 8.0 30 10/12/18 11:00 94 19 105/66 (79) 100 10/12/18 10:30 95 19 108/65 (79) 100 10/12/18 10:00 97 19 102/66 (78) 100 10/12/18 09:30 98 19 98/64 (75) 100 10/12/18 09:00 93 19 99/66 (77) 100 10/12/18 08:30 94 28 30 10/12/18 08:30 96 20 99/65 (76) 100 10/12/18 08:15 30 10/12/18 08:00 Mechanical Ventilator 10/12/18 08:00 94 18 95/62 (73) 100 10/12/18 08:00 94 10/12/18 08:00 40 10/12/18 07:30 99.0 95 17 87/60 (69) 100 10/12/18 07:00 99 17 93/61 (72) 100 10/12/18 07:00 88/64 10/12/18 06:40 94 30 40 10/12/18 06:30 98 38 87/60 (69) 100 10/12/18 06:00 95 25 102/66 (78) 100 10/12/18 06:00 102/66 10/12/18 05:30 93 27 99/70 (80) 100 10/12/18 05:07 101 30 40 10/12/18 05:00 75/45 10/12/18 05:00 101 26 101/55 (70) 100 10/12/18 04:00 Mechanical Ventilator 10/12/18 04:00 40 10/12/18 04:00 109 10/12/18 04:00 99.5 111 26 87/54 (65) 100 10/12/18 03:04 118 30 40 10/12/18 03:00 114 26 106/65 (79) 100 10/12/18 02:30 115 24 101/74 (83) 100 10/12/18 02:00 107/65 10/12/18 02:00 113 24 102/62 (75) 100 10/12/18 01:30 109 20 109/65 (80) 100 10/12/18 01:00 107 18 109/67 (81) 100 10/12/18 01:00 106/69 10/12/18 00:54 108 30 40 10/12/18 00:00 98.3 107 24 102/67 (79) 100 10/12/18 00:00 40 10/12/18 00:00 Mechanical Ventilator 10/12/18 00:00 110/70 10/12/18 00:00 105 10/11/18 23:30 108 19 101/64 (76) 100 10/11/18 23:01 108 34 40 10/11/18 23:00 109 20 108/83 (91) 100 10/11/18 23:00 100/65 10/11/18 22:30 106 26 103/59 (74) 100 10/11/18 22:00 108 29 98/63 (75) 100 10/11/18 22:00 91/58 10/11/18 21:30 108 25 93/63 (73) 100 10/11/18 21:00 107 30 40 10/11/18 21:00 109 31 100/67 (78) 100 10/11/18 20:30 106 29 82/64 (70) 100 10/11/18 20:00 98.8 110 96/63 (74) 10/11/18 20:00 109 10/11/18 20:00 Mechanical Ventilator 10/11/18 20:00 40 10/11/18 19:27 91/58 10/11/18 19:17 99.8 135 23 91/58 100 Mechanical Ventilator 6.0 40 10/11/18 19:16 99.8 135 23 91/58 100 Mechanical Ventilator 6.0 40 10/11/18 19:00 118 83/52 (62) 10/11/18 18:42 118 25 40 10/11/18 18:30 118 88/50 (63) 10/11/18 18:23 118 10/11/18 18:00 Mechanical Ventilator 10/11/18 18:00 40 10/11/18 18:00 120 77/46 (56) 10/11/18 18:00 98.1 10/11/18 17:43 88/51 10/11/18 17:38 81/59 10/11/18 17:33 Mechanical Ventilator 10/11/18 17:33 85/49 10/11/18 17:28 82/48 10/11/18 17:22 81/49 10/11/18 17:18 82/58 10/11/18 17:14 123 30 40 10/11/18 17:13 81/48 10/11/18 17:08 82/50 10/11/18 17:03 81/51 10/11/18 16:58 79/51 10/11/18 16:53 79/51 10/11/18 16:48 78/48 10/11/18 16:43 73/49 10/11/18 16:38 71/48 10/11/18 16:33 74/45 10/11/18 16:28 73/41 10/11/18 16:23 74/47 10/11/18 16:07 126 28 98 Mechanical Ventilator 40 10/11/18 15:58 127 32 99 Mechanical Ventilator 40 10/11/18 15:58 40 10/11/18 15:54 102.8 123 23 94/47 100 Mechanical Ventilator 60.0 40 10/11/18 15:54 128 23 Mechanical Ventilator 60.0 40 10/11/18 15:23 102.8 135 23 81/62 100 Mechanical Ventilator 60.0 40 10/11/18 15:08 40 10/11/18 14:48 142 38 Mechanical Ventilator 60.0 80 10/11/18 14:42 144 36 80 10/11/18 14:11 147 22 92/58 100 Mechanical Ventilator Intake and Output 10/11/18 10/12/18 19:00 07:00 Intake Total 1858.84 ml Output Total 350 ml 2725 ml Balance -350 ml -866.16 ml Intake IV Total 1858.84 ml Output Urine Total 350 ml 2725 ml Laboratory Tests Test 10/11/18 14:23 10/11/18 15:00 10/11/18 16:01 10/11/18 17:10 White Blood Count 13.8 K/UL (4.8-10.8) H Red Blood Count 3.23 M/UL (4.70-6.10) L Hemoglobin 10.2 G/DL (14.2-18.0) L Hematocrit 30.2 % (42.0-52.0) L Mean Corpuscular Volume 94 FL (80-99) Mean Corpuscular Hemoglobin 31.7 PG (27.0-31.0) H Mean Corpuscular Hemoglobin Concent 33.8 G/DL (32.0-36.0) Red Cell Distribution Width 13.5 % (11.6-14.8) Platelet Count 345 K/UL (150-450) Mean Platelet Volume 5.1 FL (6.5-10.1) L Neutrophils (%) (Auto) 75.5 % (45.0-75.0) H Lymphocytes (%) (Auto) 19.4 % (20.0-45.0) L Monocytes (%) (Auto) 4.2 % (1.0-10.0) Eosinophils (%) (Auto) 0.1 % (0.0-3.0) Basophils (%) (Auto) 0.8 % (0.0-2.0) Prothrombin Time 13.1 SEC (9.30-11.50) H Prothromb Time International Ratio 1.3 (0.9-1.1) H Activated Partial Thromboplast Time 33 SEC (23-33) Sodium Level 132 MMOL/L (136-145) L Potassium Level 4.7 MMOL/L (3.5-5.1) Chloride Level 97 MMOL/L (98-107) L Carbon Dioxide Level 22 MMOL/L (21-32) Anion Gap 13 mmol/L (5-15) Blood Urea Nitrogen 63 mg/dL (7-18) H Creatinine 2.0 MG/DL (0.55-1.30) H Estimat Glomerular Filtration Rate 35.3 mL/min (>60) Glucose Level 184 MG/DL (74-106) H Lactic Acid Level 5.50 mmol/L (0.4-2.0) H 2.80 mmol/L (0.66-2.22) H Calcium Level 10.1 MG/DL (8.5-10.1) Magnesium Level 1.8 MG/DL (1.8-2.4) Total Bilirubin 0.2 MG/DL (0.2-1.0) Aspartate Amino Transf (AST/SGOT) 66 U/L (15-37) H Alanine Aminotransferase (ALT/SGPT) 53 U/L (12-78) Alkaline Phosphatase 178 U/L (46-116) H Total Creatine Kinase 540 U/L (26-308) H Troponin I 0.221 ng/mL (0.000-0.056) Pro-B-Type Natriuretic Peptide 595 pg/mL (0-125) H Total Protein 8.5 G/DL (6.4-8.2) H Albumin 2.5 G/DL (3.4-5.0) L Globulin 6.0 g/dL Albumin/Globulin Ratio 0.4 (1.0-2.7) L Urine Color Yellow Urine Appearance Turbid Urine pH 5 (4.5-8.0) Urine Specific [place] 1.015 (1.005-1.035) Urine Protein 2+ (NEGATIVE) H Urine Glucose (UA) Negative (NEGATIVE) Urine Ketones Negative (NEGATIVE) Urine Blood 5+ (NEGATIVE) H Urine Nitrite Negative (NEGATIVE) Urine Bilirubin Negative (NEGATIVE) Urine Urobilinogen Normal MG/DL (0.0-1.0) Urine Leukocyte Esterase 3+ (NEGATIVE) H Urine RBC Tntc /HPF (0 - 0) H Urine WBC Tntc /HPF (0 - 0) H Urine Squamous Epithelial Cells Occasional /LPF Urine Calcium Oxalate Crystals Few /LPF (NONE) Urine Bacteria Many /HPF (NONE) H Arterial Blood pH 7.408 (7.350-7.450) Arterial Blood Partial Pressure CO2 30.9 mmHg (35.0-45.0) L Arterial Blood Partial Pressure O2 74.8 mmHg (75.0-100.0) L Arterial Blood HCO3 19.1 mmol/L (22.0-26.0) L Arterial Blood Oxygen Saturation 92.9 % (95-100) L Arterial Blood Base Excess -5.0 (-2-2) L José Miguel Test Positive Test 10/11/18 19:45 10/11/18 21:10 10/11/18 22:00 10/12/18 04:00 White Blood Count 12.2 K/UL (4.8-10.8) H 21.1 K/UL (4.8-10.8) #H Red Blood Count 2.55 M/UL (4.70-6.10) L 2.58 M/UL (4.70-6.10) L Hemoglobin 8.1 G/DL (14.2-18.0) L 8.1 G/DL (14.2-18.0) L Hematocrit 23.8 % (42.0-52.0) L 24.1 % (42.0-52.0) L Mean Corpuscular Volume 93 FL (80-99) 93 FL (80-99) Mean Corpuscular Hemoglobin 31.8 PG (27.0-31.0) H 31.3 PG (27.0-31.0) H Mean Corpuscular Hemoglobin Concent 34.1 G/DL (32.0-36.0) 33.5 G/DL (32.0-36.0) Red Cell Distribution Width 13.5 % (11.6-14.8) 13.6 % (11.6-14.8) Platelet Count 241 K/UL (150-450) 237 K/UL (150-450) Mean Platelet Volume 5.1 FL (6.5-10.1) L 5.2 FL (6.5-10.1) L Neutrophils (%) (Auto) 79.8 % (45.0-75.0) H % (45.0-75.0) Lymphocytes (%) (Auto) 17.8 % (20.0-45.0) L % (20.0-45.0) Monocytes (%) (Auto) 1.9 % (1.0-10.0) % (1.0-10.0) Eosinophils (%) (Auto) 0.1 % (0.0-3.0) % (0.0-3.0) Basophils (%) (Auto) 0.5 % (0.0-2.0) % (0.0-2.0) Sodium Level 136 MMOL/L (136-145) 132 MMOL/L (136-145) L Potassium Level 4.6 MMOL/L (3.5-5.1) 4.2 MMOL/L (3.5-5.1) Chloride Level 105 MMOL/L (98-107) 100 MMOL/L (98-107) Carbon Dioxide Level 22 MMOL/L (21-32) 20 MMOL/L (21-32) L Anion Gap 9 mmol/L (5-15) 12 mmol/L (5-15) Blood Urea Nitrogen 51 mg/dL (7-18) H 29 mg/dL (7-18) H Creatinine 1.4 MG/DL (0.55-1.30) H 1.1 MG/DL (0.55-1.30) Estimat Glomerular Filtration Rate 53.2 mL/min (>60) > 60 mL/min (>60) Glucose Level 168 MG/DL (74-106) H 241 MG/DL (74-106) H Hemoglobin A1c 9.0 % (4.3-6.0) H 9.1 % (4.3-6.0) H Lactic Acid Level 2.40 mmol/L (0.4-2.0) H 3.00 mmol/L (0.66-2.22) H 3.10 mmol/L (0.4-2.0) H Calcium Level 8.2 MG/DL (8.5-10.1) L 8.6 MG/DL (8.5-10.1) Troponin I 0.261 ng/mL (0.000-0.056) 0.125 ng/mL (0.000-0.056) Thyroid Stimulating Hormone (TSH) 0.415 uiU/mL (0.358-3.740) 0.367 uiU/mL (0.358-3.740) Arterial Blood pH 7.390 (7.350-7.450) Arterial Blood Partial Pressure CO2 32.5 mmHg (35.0-45.0) L Arterial Blood Partial Pressure O2 109.5 mmHg (75.0-100.0) H Arterial Blood HCO3 19.2 mmol/L (22.0-26.0) L Arterial Blood Oxygen Saturation 97.4 % (95-100) Arterial Blood Base Excess -5.1 (-2-2) L José Miguel Test Positive Differential Total Cells Counted 100 Neutrophils % (Manual) 62 % (45-75) Lymphocytes % (Manual) 9 % (20-45) L Monocytes % (Manual) 3 % (1-10) Eosinophils % (Manual) 0 % (0-3) Basophils % (Manual) 0 % (0-2) Metamyelocytes % 1 % (0-0) H Myelocytes % 1 % (0-0) H Band Neutrophils 24 % (0-8) H Platelet Estimate Adequate Platelet Morphology Normal Hypochromasia 1+ Reticulocyte Count 0.8 % (0.0-2.0) Sickle Cell Screen Pending Hemoglobin A Pending Hemoglobin A2 Pending Hemoglobin C Pending Hemoglobin F () Pending Hemoglobin S Pending Variant Hemoglobin Pending Hemoglobin Electrophoresis Interp Pending Hemoglobin Interpretation Pending Hemoglobin Solubility Pending Prothrombin Time 13.9 SEC (9.30-11.50) H Prothromb Time International Ratio 1.3 (0.9-1.1) H Stool Occult Blood Negative (NEGATIVE) Iron Level 14 ug/dL (50-175) L Total Iron Binding Capacity 152 ug/dL (250-450) L Percent Iron Saturation 9 % (15-50) L Unsaturated Iron Binding 138 ug/dL (112-346) Ferritin 1637 NG/ML (8-388) H Vitamin B12 Level > 2000 PG/ML (193-986) H Folate 16.2 NG/ML (8.6-58.9) Cortisol AM Sample Pending Random Vancomycin Level 5.8 ug/mL Test 10/12/18 09:00 10/12/18 10:10 Arterial Blood pH 7.474 (7.350-7.450) Arterial Blood Partial Pressure CO2 30.1 mmHg (35.0-45.0) L Arterial Blood Partial Pressure O2 97.3 mmHg (75.0-100.0) Arterial Blood HCO3 21.6 mmol/L (22.0-26.0) L Arterial Blood Oxygen Saturation 97.1 % (95-100) Arterial Blood Base Excess -1.6 (-2-2) José Miguel Test Positive Lactic Acid Level 3.30 mmol/L (0.66-2.22) H Microbiology Date/Time Source Procedure Growth Status 10/11/18 15:00 Urine,Clean Catch Urine Culture - Preliminary Gram Negative Bacillus 1 Resulted 10/11/18 16:15 Rectum Received Height (Feet): 5 Height (Inches): 7.00 Weight (Pounds): 127 Medications Current Medications Medications (Trade) Dose Ordered Sig/Last Route PRN Reason Start Time Stop Time Status Last Admin Dose Admin Acetaminophen (Tylenol) 650 mg Q4H PRN RECTAL Prn Headache/Temp > 101 10/11/18 19:00 11/10/18 18:59 Albuterol/ Ipratropium (Albuterol/ Ipratropium) 3 ml Q4H PRN HHN Shortness of Breath 10/11/18 19:00 10/16/18 18:59 Dextrose/Sodium Chloride 1,000 ml @ 100 mls/hr Q10H IV 10/11/18 19:03 11/10/18 19:02 10/12/18 05:00 Heparin Sodium (Porcine) (Heparin 5000 units/ml) 5,000 units EVERY 12 HOURS SUBQ 10/11/18 21:00 3/14/19 20:59 10/12/18 09:00 Hydrocortisone (Solu-CORTEF) 100 mg EVERY 8 HOURS IV 10/11/18 22:00 11/10/18 21:59 10/12/18 05:43 Midazolam HCl (Versed 2mg/2ml vial) 2 mg Q4H PRN IVP Agitation 10/11/18 19:00 11/10/18 18:59 Norepinephrine Bitartrate 8 mg/ Dextrose 508 ml @ 0 mls/hr Q24H IV 10/11/18 19:00 11/10/18 18:59 10/11/18 22:00 Piperacillin Sod/ Tazobactam Sod 3.375 gm/Sodium Chloride 110 ml @ 27.5 mls/hr EVERY 8 HOURS IVPB 10/11/18 22:00 10/16/18 21:59 10/12/18 05:43 Vancomycin HCl (Vanco rx to dose) 1 ea DAILY PRN MISC Per rx protocol 10/11/18 19:00 11/10/18 18:59 Vancomycin HCl 750 mg/Sodium Chloride 275 ml @ 183.333 mls/hr Q12HR IVPB 10/12/18 09:00 10/17/18 08:59 10/12/18 09:00 Vasopressin 100 units/Sodium Chloride 100 ml @ 2.4 mls/hr Q24H IV 10/12/18 20:00 11/10/18 19:59 Assessment/Plan Problem List: (1) Severe sepsis ICD Codes: A41.9 - Sepsis, unspecified organism; R65.20 - Severe sepsis without septic shock SNOMED: [id number] Monroe Reynaga Oct 12, 2018 13:19
--- NOTE | 2018-10-12 13:22 | NUR ---
Social Service Note Patient was transferred to [facility] from [facility] on Oct 03, 2018. SW spoke with SW at [place] [phone] who is unaware of family contact. SW could not confirm that POLST was completed at or [facility]. POLST signed by patient's dgt Blanche Vargas. CHRISTA spoke with Lisette DUMONT at [facility] and confirmed patient's dgt Blanche Vargas [phone] as the primary decision maker for patient. CHRISTA spoke with Blnache Vargas and confirmed code status DNR/DNI. Dgt's contact information provided to Dr. Lou to discuss the progression of care. Will continue to monitor and assist as needed.
--- NOTE | 2018-10-12 14:00 | NUR ---
NURSE NOTES: Patient turned and repositioned. Rectal tube continues to leak. Re-inserted. No new orders. Will continue to monitor patient.
--- NOTE | 2018-10-12 14:19 | NUR ---
NURSE NOTES:WOUND CARE NOTES:Pt presents with partial thickness pressure injuries to R and L gluteal clefts and an area at sacrococcygeal that is dark and indurated. Wounds present on admission. L buttocks partial thickness wound moist and viable .Edges adherent and flat .Non-blanchable erythema periwound. (L)3.9cm x (W)3.5cm. R gluteal cleft partial thickness pressure injury.Wound bed moist and viable.edges adhrent and flat .Non-blanchable erythema periwound (L)0.4cm x (W)0.5cm. Bilat heels boggy but blanchable. Non-blanchable erythema noted to lateral R heel. Tx.Plan: Apply Moisture Barrier Paste to R and L buttocks .Cover with Optifoam drsg .Change daily and prn. Apply Cavilon Skin Barrier to R and L heels and Malleoli.Cover each site with Optifoam drsgs .Change every 7 days and PRN. APM/CLINT mattress. Reposition at least every 2hours or as tolerated. Off-load heels with pillow.
--- NOTE | 2018-10-12 15:15 | GI Initial Consult Note ---
History of Present Illness General Date patient seen: Oct 12, 2018 Time patient seen: 15:10 Reason for Hospitalization: Fever Referring physician: TRUE LEIVA Reason for Consultation: Anemia Present Illness HPI Patient presents with altered level of consciousness. Apparently there was some respiratory distress and his oxygen saturation was low at 87% before suctioning. Paramedics found that oxygen saturation was 97%. He has a tracheostomy tube. They continue high flow oxygen on the way in. His blood pressure was low and a fluid bolus was begun. He had a 22-gauge IV was established in the field. GI consulted for anemia. ROS limited, altered mental status. Initial HPI as noted above. Patient seen in ICU, no apparent distress. Labs reviewed patient presents today with leukocytosis, anemia, iron deficiency and negative OB stool. Patient is tracheostomy and G-tube dependent. Troponin level is negative. Home Meds Reported Medications Pantoprazole* (PANTOPRAZOLE*) 40 Mg Tablet.dr, 40 MG GT DAILY, TAB 10/11/18 Heparin Sod (Porcine) (HEPARIN SODIUM*) 5 000/1 Ml Vial, 5000 UNITS SUBQ EVERY 12 HOURS, VIAL 10/11/18 Aspirin* (ASPIR 81*) 81 Mg Tablet.dr, 81 MG GT DAILY, TAB 10/11/18 Vitamin D (Vitamin D3) 400 Unit Tablet, 5000 UNITS GT DAILY, TAB 10/11/18 Atorvastatin Calcium* (ATORVASTATIN CALCIUM*) 40 Mg Tablet, 80 MG GT BEDTIME, TAB 10/11/18 Med list reviewed/reconciled: Yes Allergies: Coded Allergies: No Known Allergies (Unverified , 10/11/18) Patient History Limited by: medical condition History Provided By: Medical Record PMH Narrative Limited by: medical condition Past Medical History: see triage record Past Surgical History: other - Tracheostomy, gastrostomy Social History Narrative Jackson Shanta Reviewed Nursing Documentation: PMH: Agreed; PSxH: Agreed Nursing Documentation-PMH Past Medical History: No History, Except For Hx Diabetes: Yes Hx Cerebrovascular Accident: Yes Past Surgical History: none - See HPI Social History: Denies: smoking, alcohol use, drug use, other Review of Systems All Other Systems: limited Physical Exam Vital Signs Date Time Temp Pulse Resp B/P (MAP) Pulse Ox O2 Delivery O2 Flow Rate FiO2 10/11/18 14:11 147 22 92/58 100 Mechanical Ventilator 10/11/18 14:42 80 10/11/18 14:48 60.0 10/11/18 15:23 102.8 Sp02 EP Interpretation: reviewed, normal Labs Laboratory Tests Test 10/11/18 16:01 10/11/18 17:10 10/11/18 19:45 10/11/18 21:10 Lactic Acid Level 2.80 mmol/L (0.66-2.22) H 2.40 mmol/L (0.4-2.0) H Arterial Blood pH 7.408 (7.350-7.450) 7.390 (7.350-7.450) Arterial Blood Partial Pressure CO2 30.9 mmHg (35.0-45.0) L 32.5 mmHg (35.0-45.0) L Arterial Blood Partial Pressure O2 74.8 mmHg (75.0-100.0) L 109.5 mmHg (75.0-100.0) H Arterial Blood HCO3 19.1 mmol/L (22.0-26.0) L 19.2 mmol/L (22.0-26.0) L Arterial Blood Oxygen Saturation 92.9 % (95-100) L 97.4 % (95-100) Arterial Blood Base Excess -5.0 (-2-2) L -5.1 (-2-2) L José Miguel Test Positive Positive White Blood Count 12.2 K/UL (4.8-10.8) H Red Blood Count 2.55 M/UL (4.70-6.10) L Hemoglobin 8.1 G/DL (14.2-18.0) L Hematocrit 23.8 % (42.0-52.0) L Mean Corpuscular Volume 93 FL (80-99) Mean Corpuscular Hemoglobin 31.8 PG (27.0-31.0) H Mean Corpuscular Hemoglobin Concent 34.1 G/DL (32.0-36.0) Red Cell Distribution Width 13.5 % (11.6-14.8) Platelet Count 241 K/UL (150-450) Mean Platelet Volume 5.1 FL (6.5-10.1) L Neutrophils (%) (Auto) 79.8 % (45.0-75.0) H Lymphocytes (%) (Auto) 17.8 % (20.0-45.0) L Monocytes (%) (Auto) 1.9 % (1.0-10.0) Eosinophils (%) (Auto) 0.1 % (0.0-3.0) Basophils (%) (Auto) 0.5 % (0.0-2.0) Sodium Level 136 MMOL/L (136-145) Potassium Level 4.6 MMOL/L (3.5-5.1) Chloride Level 105 MMOL/L (98-107) Carbon Dioxide Level 22 MMOL/L (21-32) Anion Gap 9 mmol/L (5-15) Blood Urea Nitrogen 51 mg/dL (7-18) H Creatinine 1.4 MG/DL (0.55-1.30) H Estimat Glomerular Filtration Rate 53.2 mL/min (>60) Glucose Level 168 MG/DL (74-106) H Hemoglobin A1c 9.0 % (4.3-6.0) H Calcium Level 8.2 MG/DL (8.5-10.1) L Troponin I 0.261 ng/mL (0.000-0.056) Thyroid Stimulating Hormone (TSH) 0.415 uiU/mL (0.358-3.740) Test 10/11/18 22:00 10/12/18 04:00 10/12/18 09:00 10/12/18 10:10 Lactic Acid Level 3.00 mmol/L (0.66-2.22) H 3.10 mmol/L (0.4-2.0) H 3.30 mmol/L (0.66-2.22) H White Blood Count 21.1 K/UL (4.8-10.8) #H Red Blood Count 2.58 M/UL (4.70-6.10) L Hemoglobin 8.1 G/DL (14.2-18.0) L Hematocrit 24.1 % (42.0-52.0) L Mean Corpuscular Volume 93 FL (80-99) Mean Corpuscular Hemoglobin 31.3 PG (27.0-31.0) H Mean Corpuscular Hemoglobin Concent 33.5 G/DL (32.0-36.0) Red Cell Distribution Width 13.6 % (11.6-14.8) Platelet Count 237 K/UL (150-450) Mean Platelet Volume 5.2 FL (6.5-10.1) L Neutrophils (%) (Auto) % (45.0-75.0) Lymphocytes (%) (Auto) % (20.0-45.0) Monocytes (%) (Auto) % (1.0-10.0) Eosinophils (%) (Auto) % (0.0-3.0) Basophils (%) (Auto) % (0.0-2.0) Differential Total Cells Counted 100 Neutrophils % (Manual) 62 % (45-75) Lymphocytes % (Manual) 9 % (20-45) L Monocytes % (Manual) 3 % (1-10) Eosinophils % (Manual) 0 % (0-3) Basophils % (Manual) 0 % (0-2) Metamyelocytes % 1 % (0-0) H Myelocytes % 1 % (0-0) H Band Neutrophils 24 % (0-8) H Platelet Estimate Adequate Platelet Morphology Normal Hypochromasia 1+ Reticulocyte Count 0.8 % (0.0-2.0) Sickle Cell Screen Pending Hemoglobin A Pending Hemoglobin A2 Pending Hemoglobin C Pending Hemoglobin F () Pending Hemoglobin S Pending Variant Hemoglobin Pending Hemoglobin Electrophoresis Interp Pending Hemoglobin Interpretation Pending Hemoglobin Solubility Pending Prothrombin Time 13.9 SEC (9.30-11.50) H Prothromb Time International Ratio 1.3 (0.9-1.1) H Stool Occult Blood Negative (NEGATIVE) Sodium Level 132 MMOL/L (136-145) L Potassium Level 4.2 MMOL/L (3.5-5.1) Chloride Level 100 MMOL/L (98-107) Carbon Dioxide Level 20 MMOL/L (21-32) L Anion Gap 12 mmol/L (5-15) Blood Urea Nitrogen 29 mg/dL (7-18) H Creatinine 1.1 MG/DL (0.55-1.30) Estimat Glomerular Filtration Rate > 60 mL/min (>60) Glucose Level 241 MG/DL (74-106) H Hemoglobin A1c 9.1 % (4.3-6.0) H Calcium Level 8.6 MG/DL (8.5-10.1) Iron Level 14 ug/dL (50-175) L Total Iron Binding Capacity 152 ug/dL (250-450) L Percent Iron Saturation 9 % (15-50) L Unsaturated Iron Binding 138 ug/dL (112-346) Ferritin 1637 NG/ML (8-388) H Troponin I 0.125 ng/mL (0.000-0.056) Vitamin B12 Level > 2000 PG/ML (193-986) H Folate 16.2 NG/ML (8.6-58.9) Thyroid Stimulating Hormone (TSH) 0.367 uiU/mL (0.358-3.740) Cortisol AM Sample Pending Random Vancomycin Level 5.8 ug/mL Arterial Blood pH 7.474 (7.350-7.450) Arterial Blood Partial Pressure CO2 30.1 mmHg (35.0-45.0) L Arterial Blood Partial Pressure O2 97.3 mmHg (75.0-100.0) Arterial Blood HCO3 21.6 mmol/L (22.0-26.0) L Arterial Blood Oxygen Saturation 97.1 % (95-100) Arterial Blood Base Excess -1.6 (-2-2) José Miguel Test Positive General Appearance: no apparent distress Head: normocephalic EENT: PERRL/EOMI, normal ENT inspection Neck: supple, tracheotomy Respiratory: normal breath sounds, no respiratory distress Cardiovascular: normal rate Gastrointestinal: normal inspection, non tender, soft, normal bowel sounds, non -distended, gt Rectal: deferred Genitourinary: deferred Musculoskeletal: normal inspection, back normal Skin: normal color, no rash, warm/dry, palpation normal, well hydrated Lymphatic: normal inspection, no adenopathy Current Medications Current Medications Medications (Trade) Dose Ordered Sig/Last Route PRN Reason Start Time Stop Time Status Last Admin Dose Admin Acetaminophen (Tylenol) 650 mg Q4H PRN RECTAL Prn Headache/Temp > 101 10/11/18 19:00 11/10/18 18:59 Albuterol/ Ipratropium (Albuterol/ Ipratropium) 3 ml Q4H PRN HHN Shortness of Breath 10/11/18 19:00 10/16/18 18:59 Dextrose/Sodium Chloride 1,000 ml @ 100 mls/hr Q10H IV 10/11/18 19:03 11/10/18 19:02 10/12/18 05:00 Heparin Sodium (Porcine) (Heparin 5000 units/ml) 5,000 units EVERY 12 HOURS SUBQ 10/11/18 21:00 11/10/18 20:59 10/12/18 09:00 Hydrocortisone (Solu-CORTEF) 100 mg EVERY 8 HOURS IV 10/11/18 22:00 11/10/18 21:59 10/12/18 14:00 Midazolam HCl (Versed 2mg/2ml vial) 2 mg Q4H PRN IVP Agitation 10/11/18 19:00 11/10/18 18:59 Norepinephrine Bitartrate 8 mg/ Dextrose 508 ml @ 0 mls/hr Q24H IV 10/11/18 19:00 11/10/18 18:59 10/11/18 22:00 Piperacillin Sod/ Tazobactam Sod 3.375 gm/Sodium Chloride 110 ml @ 27.5 mls/hr EVERY 8 HOURS IVPB 10/11/18 22:00 10/16/18 21:59 10/12/18 14:00 Vancomycin HCl (Vanco rx to dose) 1 ea DAILY PRN MISC Per rx protocol 10/11/18 19:00 11/10/18 18:59 Vancomycin HCl 750 mg/Sodium Chloride 275 ml @ 183.333 mls/hr Q12HR IVPB 10/12/18 09:00 10/17/18 08:59 10/12/18 09:00 Vasopressin 100 units/Sodium Chloride 100 ml @ 2.4 mls/hr Q24H IV 10/12/18 20:00 11/10/18 19:59 GI: Plan Problems: (1) Gastrostomy tube dependent (2) Clostridium difficile diarrhea (3) Dehydration (4) Iron deficiency (5) Anemia (6) Tracheostomy care (7) Encephalopathy Plan Anemia workup reviewed. Iron deficiency. OB stool negative. G-tube dependent, okay to start tube feeding Rectal tube present, sent for C. difficile G-tube feeding per RD to goal Reglan for GI motility if needed monitor H&H, as needed transfusions Antibiotics venofer No plans for GI procedures unless urgent Follow labs Discussed with Dr. Dixon. Thank you for this patient referral, we will follow. The patient was seen and examined at bedside and all new and available data was reviewed in the patients chart. I agree with the above findings, impression and plan. (Patient seen earlier today. Signature stamp does not reflect patient encounter time.). - MD Kimberlyn Greer,[facility] CERTIFIED WELDING INSPECTOR Oct 12, 2018 15:15
--- NOTE | 2018-10-12 15:47 | Consultation ---
History of Present Illness General Date patient seen: Oct 12, 2018 Chief Complaint: Fever Referring physician: TRUE LEIVA Reason for Consultation: Anemia Present Illness Allergies: Coded Allergies: No Known Allergies (Unverified , 10/11/18) Medication History Scheduled Aspirin* (Aspir 81*), 81 MG GT DAILY, (Reported) Atorvastatin Calcium* (Atorvastatin Calcium*), 80 MG GT BEDTIME, (Reported) Heparin Sod (Porcine) (Heparin Sodium*), 5,000 UNITS SUBQ EVERY 12 HOURS, ( Reported) Pantoprazole* (Pantoprazole*), 40 MG GT DAILY, (Reported) Vitamin D (Vitamin D3), 5,000 UNITS GT DAILY, (Reported) Patient History Healthcare decision maker N Resuscitation status Full Code Advanced Directive on File No Physical Exam Last 24 Hour Vital Signs Date Time Temp Pulse Resp B/P (MAP) Pulse Ox O2 Delivery O2 Flow Rate FiO2 10/12/18 15:00 94 18 108/68 (81) 100 10/12/18 14:30 88 18 104/66 (79) 100 10/12/18 14:30 86 16 116/72 (87) 100 10/12/18 14:00 87 15 112/69 (83) 100 10/12/18 14:00 85 18 105/66 (79) 100 10/12/18 13:30 87 19 100/64 (76) 100 10/12/18 13:00 Trach Collar 8.0 30 10/12/18 13:00 90 19 95/62 (73) 100 10/12/18 13:00 97 Trach Collar 8.0 30 10/12/18 12:30 85 19 98/60 (73) 100 10/12/18 12:00 Mechanical Ventilator 10/12/18 12:00 90 10/12/18 12:00 98.8 89 19 102/65 (77) 100 10/12/18 11:30 90 19 100/64 (76) 100 10/12/18 11:15 Trach Collar 8.0 30 10/12/18 11:15 97 Trach Collar 8.0 30 10/12/18 11:00 94 19 105/66 (79) 100 10/12/18 10:30 95 19 108/65 (79) 100 10/12/18 10:00 97 19 102/66 (78) 100 10/12/18 09:30 98 19 98/64 (75) 100 10/12/18 09:00 93 19 99/66 (77) 100 10/12/18 08:30 94 28 30 10/12/18 08:30 96 20 99/65 (76) 100 10/12/18 08:15 30 10/12/18 08:00 Mechanical Ventilator 10/12/18 08:00 94 18 95/62 (73) 100 10/12/18 08:00 94 10/12/18 08:00 40 10/12/18 07:30 99.0 95 17 87/60 (69) 100 10/12/18 07:00 99 17 93/61 (72) 100 10/12/18 07:00 88/64 10/12/18 06:40 94 30 40 10/12/18 06:30 98 38 87/60 (69) 100 10/12/18 06:00 95 25 102/66 (78) 100 10/12/18 06:00 102/66 10/12/18 05:30 93 27 99/70 (80) 100 10/12/18 05:07 101 30 40 10/12/18 05:00 75/45 10/12/18 05:00 101 26 101/55 (70) 100 10/12/18 04:00 Mechanical Ventilator 10/12/18 04:00 40 10/12/18 04:00 109 10/12/18 04:00 99.5 111 26 87/54 (65) 100 10/12/18 03:04 118 30 40 10/12/18 03:00 114 26 106/65 (79) 100 10/12/18 02:30 115 24 101/74 (83) 100 10/12/18 02:00 107/65 10/12/18 02:00 113 24 102/62 (75) 100 10/12/18 01:30 109 20 109/65 (80) 100 10/12/18 01:00 107 18 109/67 (81) 100 10/12/18 01:00 106/69 10/12/18 00:54 108 30 40 10/12/18 00:00 98.3 107 24 102/67 (79) 100 10/12/18 00:00 40 10/12/18 00:00 Mechanical Ventilator 10/12/18 00:00 110/70 10/12/18 00:00 105 10/11/18 23:30 108 19 101/64 (76) 100 10/11/18 23:01 108 34 40 10/11/18 23:00 109 20 108/83 (91) 100 10/11/18 23:00 100/65 10/11/18 22:30 106 26 103/59 (74) 100 10/11/18 22:00 108 29 98/63 (75) 100 10/11/18 22:00 91/58 10/11/18 21:30 108 25 93/63 (73) 100 10/11/18 21:00 107 30 40 10/11/18 21:00 109 31 100/67 (78) 100 10/11/18 20:30 106 29 82/64 (70) 100 10/11/18 20:00 98.8 110 96/63 (74) 10/11/18 20:00 109 10/11/18 20:00 Mechanical Ventilator 10/11/18 20:00 40 10/11/18 19:27 91/58 10/11/18 19:17 99.8 135 23 91/58 100 Mechanical Ventilator 6.0 40 10/11/18 19:16 99.8 135 23 91/58 100 Mechanical Ventilator 6.0 40 10/11/18 19:00 118 83/52 (62) 10/11/18 18:42 118 25 40 10/11/18 18:30 118 88/50 (63) 10/11/18 18:23 118 10/11/18 18:00 Mechanical Ventilator 10/11/18 18:00 40 10/11/18 18:00 120 77/46 (56) 10/11/18 18:00 98.1 10/11/18 17:43 88/51 10/11/18 17:38 81/59 10/11/18 17:33 Mechanical Ventilator 10/11/18 17:33 85/49 10/11/18 17:28 82/48 10/11/18 17:22 81/49 10/11/18 17:18 82/58 10/11/18 17:14 123 30 40 10/11/18 17:13 81/48 10/11/18 17:08 82/50 10/11/18 17:03 81/51 10/11/18 16:58 79/51 10/11/18 16:53 79/51 10/11/18 16:48 78/48 10/11/18 16:43 73/49 10/11/18 16:38 71/48 10/11/18 16:33 74/45 10/11/18 16:28 73/41 10/11/18 16:23 74/47 10/11/18 16:07 126 28 98 Mechanical Ventilator 40 10/11/18 15:58 127 32 99 Mechanical Ventilator 40 10/11/18 15:58 40 10/11/18 15:54 102.8 123 23 94/47 100 Mechanical Ventilator 60.0 40 10/11/18 15:54 128 23 Mechanical Ventilator 60.0 40 Intake and Output 10/11/18 10/12/18 18:59 06:59 Intake Total 1723.72 ml Output Total 150 ml 2750 ml Balance -150 ml -1026.28 ml Intake IV Total 1723.72 ml Output Urine Total 150 ml 2750 ml Laboratory Tests Test 10/11/18 16:01 10/11/18 17:10 10/11/18 19:45 10/11/18 21:10 Lactic Acid Level 2.80 mmol/L (0.66-2.22) H 2.40 mmol/L (0.4-2.0) H Arterial Blood pH 7.408 (7.350-7.450) 7.390 (7.350-7.450) Arterial Blood Partial Pressure CO2 30.9 mmHg (35.0-45.0) L 32.5 mmHg (35.0-45.0) L Arterial Blood Partial Pressure O2 74.8 mmHg (75.0-100.0) L 109.5 mmHg (75.0-100.0) H Arterial Blood HCO3 19.1 mmol/L (22.0-26.0) L 19.2 mmol/L (22.0-26.0) L Arterial Blood Oxygen Saturation 92.9 % (95-100) L 97.4 % (95-100) Arterial Blood Base Excess -5.0 (-2-2) L -5.1 (-2-2) L José Miguel Test Positive Positive White Blood Count 12.2 K/UL (4.8-10.8) H Red Blood Count 2.55 M/UL (4.70-6.10) L Hemoglobin 8.1 G/DL (14.2-18.0) L Hematocrit 23.8 % (42.0-52.0) L Mean Corpuscular Volume 93 FL (80-99) Mean Corpuscular Hemoglobin 31.8 PG (27.0-31.0) H Mean Corpuscular Hemoglobin Concent 34.1 G/DL (32.0-36.0) Red Cell Distribution Width 13.5 % (11.6-14.8) Platelet Count 241 K/UL (150-450) Mean Platelet Volume 5.1 FL (6.5-10.1) L Neutrophils (%) (Auto) 79.8 % (45.0-75.0) H Lymphocytes (%) (Auto) 17.8 % (20.0-45.0) L Monocytes (%) (Auto) 1.9 % (1.0-10.0) Eosinophils (%) (Auto) 0.1 % (0.0-3.0) Basophils (%) (Auto) 0.5 % (0.0-2.0) Sodium Level 136 MMOL/L (136-145) Potassium Level 4.6 MMOL/L (3.5-5.1) Chloride Level 105 MMOL/L (98-107) Carbon Dioxide Level 22 MMOL/L (21-32) Anion Gap 9 mmol/L (5-15) Blood Urea Nitrogen 51 mg/dL (7-18) H Creatinine 1.4 MG/DL (0.55-1.30) H Estimat Glomerular Filtration Rate 53.2 mL/min (>60) Glucose Level 168 MG/DL (74-106) H Hemoglobin A1c 9.0 % (4.3-6.0) H Calcium Level 8.2 MG/DL (8.5-10.1) L Troponin I 0.261 ng/mL (0.000-0.056) Thyroid Stimulating Hormone (TSH) 0.415 uiU/mL (0.358-3.740) Test 10/11/18 22:00 10/12/18 04:00 10/12/18 09:00 10/12/18 10:10 Lactic Acid Level 3.00 mmol/L (0.66-2.22) H 3.10 mmol/L (0.4-2.0) H 3.30 mmol/L (0.66-2.22) H White Blood Count 21.1 K/UL (4.8-10.8) #H Red Blood Count 2.58 M/UL (4.70-6.10) L Hemoglobin 8.1 G/DL (14.2-18.0) L Hematocrit 24.1 % (42.0-52.0) L Mean Corpuscular Volume 93 FL (80-99) Mean Corpuscular Hemoglobin 31.3 PG (27.0-31.0) H Mean Corpuscular Hemoglobin Concent 33.5 G/DL (32.0-36.0) Red Cell Distribution Width 13.6 % (11.6-14.8) Platelet Count 237 K/UL (150-450) Mean Platelet Volume 5.2 FL (6.5-10.1) L Neutrophils (%) (Auto) % (45.0-75.0) Lymphocytes (%) (Auto) % (20.0-45.0) Monocytes (%) (Auto) % (1.0-10.0) Eosinophils (%) (Auto) % (0.0-3.0) Basophils (%) (Auto) % (0.0-2.0) Differential Total Cells Counted 100 Neutrophils % (Manual) 62 % (45-75) Lymphocytes % (Manual) 9 % (20-45) L Monocytes % (Manual) 3 % (1-10) Eosinophils % (Manual) 0 % (0-3) Basophils % (Manual) 0 % (0-2) Metamyelocytes % 1 % (0-0) H Myelocytes % 1 % (0-0) H Band Neutrophils 24 % (0-8) H Platelet Estimate Adequate Platelet Morphology Normal Hypochromasia 1+ Reticulocyte Count 0.8 % (0.0-2.0) Sickle Cell Screen Pending Hemoglobin A Pending Hemoglobin A2 Pending Hemoglobin C Pending Hemoglobin F () Pending Hemoglobin S Pending Variant Hemoglobin Pending Hemoglobin Electrophoresis Interp Pending Hemoglobin Interpretation Pending Hemoglobin Solubility Pending Prothrombin Time 13.9 SEC (9.30-11.50) H Prothromb Time International Ratio 1.3 (0.9-1.1) H Stool Occult Blood Negative (NEGATIVE) Sodium Level 132 MMOL/L (136-145) L Potassium Level 4.2 MMOL/L (3.5-5.1) Chloride Level 100 MMOL/L (98-107) Carbon Dioxide Level 20 MMOL/L (21-32) L Anion Gap 12 mmol/L (5-15) Blood Urea Nitrogen 29 mg/dL (7-18) H Creatinine 1.1 MG/DL (0.55-1.30) Estimat Glomerular Filtration Rate > 60 mL/min (>60) Glucose Level 241 MG/DL (74-106) H Hemoglobin A1c 9.1 % (4.3-6.0) H Calcium Level 8.6 MG/DL (8.5-10.1) Iron Level 14 ug/dL (50-175) L Total Iron Binding Capacity 152 ug/dL (250-450) L Percent Iron Saturation 9 % (15-50) L Unsaturated Iron Binding 138 ug/dL (112-346) Ferritin 1637 NG/ML (8-388) H Troponin I 0.125 ng/mL (0.000-0.056) Vitamin B12 Level > 2000 PG/ML (193-986) H Folate 16.2 NG/ML (8.6-58.9) Thyroid Stimulating Hormone (TSH) 0.367 uiU/mL (0.358-3.740) Cortisol AM Sample Pending Random Vancomycin Level 5.8 ug/mL Arterial Blood pH 7.474 (7.350-7.450) Arterial Blood Partial Pressure CO2 30.1 mmHg (35.0-45.0) L Arterial Blood Partial Pressure O2 97.3 mmHg (75.0-100.0) Arterial Blood HCO3 21.6 mmol/L (22.0-26.0) L Arterial Blood Oxygen Saturation 97.1 % (95-100) Arterial Blood Base Excess -1.6 (-2-2) José Miguel Test Positive Microbiology Date/Time Source Procedure Growth Status 10/11/18 16:15 Rectum Received Height (Feet): 5 Height (Inches): 7.00 Weight (Pounds): 127 Medications Current Medications Medications (Trade) Dose Ordered Sig/Last Route PRN Reason Start Time Stop Time Status Last Admin Dose Admin Acetaminophen (Tylenol) 650 mg Q4H PRN RECTAL Prn Headache/Temp > 101 10/11/18 19:00 11/10/18 18:59 Albuterol/ Ipratropium (Albuterol/ Ipratropium) 3 ml Q4H PRN HHN Shortness of Breath 10/11/18 19:00 10/16/18 18:59 Dextrose/Sodium Chloride 1,000 ml @ 100 mls/hr Q10H IV 10/11/18 19:03 11/10/18 19:02 10/12/18 05:00 Heparin Sodium (Porcine) (Heparin 5000 units/ml) 5,000 units EVERY 12 HOURS SUBQ 10/11/18 21:00 11/10/18 20:59 10/12/18 09:00 Hydrocortisone (Solu-CORTEF) 100 mg EVERY 8 HOURS IV 10/11/18 22:00 11/10/18 21:59 10/12/18 14:00 Iron Sucrose 100 mg/Sodium Chloride 60 ml @ 240 mls/hr BEDTIME IV 10/12/18 21:00 10/14/18 21:14 Midazolam HCl (Versed 2mg/2ml vial) 2 mg Q4H PRN IVP Agitation 10/11/18 19:00 11/10/18 18:59 Norepinephrine Bitartrate 8 mg/ Dextrose 508 ml @ 0 mls/hr Q24H IV 10/11/18 19:00 11/10/18 18:59 10/11/18 22:00 Piperacillin Sod/ Tazobactam Sod 3.375 gm/Sodium Chloride 110 ml @ 27.5 mls/hr EVERY 8 HOURS IVPB 10/11/18 22:00 10/16/18 21:59 10/12/18 14:00 Vancomycin HCl (Vanco rx to dose) 1 ea DAILY PRN MISC Per rx protocol 10/11/18 19:00 11/10/18 18:59 Vancomycin HCl 750 mg/Sodium Chloride 275 ml @ 183.333 mls/hr Q12HR IVPB 10/12/18 09:00 10/17/18 08:59 10/12/18 09:00 Vasopressin 100 units/Sodium Chloride 100 ml @ 2.4 mls/hr Q24H IV 10/12/18 20:00 11/10/18 19:59 Assessment/Plan Assessment/Plan Hematology Consultation Reason for Consultation: Anemia DOS: 10/12/18 REQ MD: Agnieszka, A HPI 53y old male presents with altered level of consciousness. Apparently there was some respiratory distress and his oxygen saturation was low at 87% before suctioning. Paramedics found that oxygen saturation was 97%. He has a tracheostomy tube. They continue high flow oxygen on the way in. His blood pressure was low and a fluid bolus was begun. He had a 22-gauge IV was established in the field. GI consulted for anemia. ROS limited, altered mental status. Initial HPI as noted above. Patient seen in ICU, no apparent distress. Labs reviewed patient presents today with leukocytosis, anemia, iron deficiency and negative OB stool. Patient is tracheostomy and G-tube dependent. Troponin level is negative. Heme consulted as well as surg, id Home Medications Pantoprazole* (PANTOPRAZOLE*) 40 Mg Tablet., 40 MG GT DAILY, TAB 10/11/18 Heparin Sod (Porcine) (HEPARIN SODIUM*) 5 000/1 Ml Vial, 5000 UNITS SUBQ EVERY 12 HOURS, VIAL 10/11/18 Aspirin* (ASPIR 81*) 81 Mg Tablet.dr, 81 MG GT DAILY, TAB 10/11/18 Vitamin D (Vitamin D3) 400 Unit Tablet, 5000 UNITS GT DAILY, TAB 10/11/18 Atorvastatin Calcium* (ATORVASTATIN CALCIUM*) 40 Mg Tablet, 80 MG GT BEDTIME, TAB 10/11/18 Med list reviewed/reconciled: Yes Allergies: Coded Allergies: No Known Allergies (Unverified , 10/11/18) Limited by: medical condition History Provided By: Medical Record PMH Narrative Limited by: medical condition Past Medical History: see triage record Past Surgical History: other - Tracheostomy, gastrostomy Social History Narrative Gee Womack Reviewed Nursing Documentation: PMH: Agreed; PSxH: Agreed Past Medical History: No History, Except For Hx Diabetes: Yes Hx Cerebrovascular Accident: Yes Past Surgical History: none - See HPI Social History: Denies: smoking, alcohol use, drug use, other Review of Systems: limited Physical Exam Vital Signs Date Time Temp Pulse Resp B/P (MAP) Pulse Ox O2 Delivery O2 Flow Rate FiO2 10/11/18 14:11 147 22 92/58 100 Mechanical Ventilator 10/11/18 14:42 80 10/11/18 14:48 60.0 10/11/18 15:23 102.8 Laboratory Tests Test 10/11/18 16:01 10/11/18 17:10 10/11/18 19:45 10/11/18 21:10 Lactic Acid Level 2.80 mmol/L (0.66-2.22) H 2.40 mmol/L (0.4-2.0) H Arterial Blood pH 7.408 (7.350-7.450) 7.390 (7.350-7.450) Arterial Blood Partial Pressure CO2 30.9 mmHg (35.0-45.0) L 32.5 mmHg (35.0-45.0) L Arterial Blood Partial Pressure O2 74.8 mmHg (75.0-100.0) L 109.5 mmHg (75.0-100.0) H Arterial Blood HCO3 19.1 mmol/L (22.0-26.0) L 19.2 mmol/L (22.0-26.0) L Arterial Blood Oxygen Saturation 92.9 % (95-100) L 97.4 % (95-100) Arterial Blood Base Excess -5.0 (-2-2) L -5.1 (-2-2) L José Miguel Test Positive Positive White Blood Count 12.2 K/UL (4.8-10.8) H Red Blood Count 2.55 M/UL (4.70-6.10) L Hemoglobin 8.1 G/DL (14.2-18.0) L Hematocrit 23.8 % (42.0-52.0) L Mean Corpuscular Volume 93 FL (80-99) Mean Corpuscular Hemoglobin 31.8 PG (27.0-31.0) H Mean Corpuscular Hemoglobin Concent 34.1 G/DL (32.0-36.0) Red Cell Distribution Width 13.5 % (11.6-14.8) Platelet Count 241 K/UL (150-450) Mean Platelet Volume 5.1 FL (6.5-10.1) L Neutrophils (%) (Auto) 79.8 % (45.0-75.0) H Lymphocytes (%) (Auto) 17.8 % (20.0-45.0) L Monocytes (%) (Auto) 1.9 % (1.0-10.0) Eosinophils (%) (Auto) 0.1 % (0.0-3.0) Basophils (%) (Auto) 0.5 % (0.0-2.0) Sodium Level 136 MMOL/L (136-145) Potassium Level 4.6 MMOL/L (3.5-5.1) Chloride Level 105 MMOL/L (98-107) Carbon Dioxide Level 22 MMOL/L (21-32) Anion Gap 9 mmol/L (5-15) Blood Urea Nitrogen 51 mg/dL (7-18) H Creatinine 1.4 MG/DL (0.55-1.30) H Estimat Glomerular Filtration Rate 53.2 mL/min (>60) Glucose Level 168 MG/DL (74-106) H Hemoglobin A1c 9.0 % (4.3-6.0) H Calcium Level 8.2 MG/DL (8.5-10.1) L Troponin I 0.261 ng/mL (0.000-0.056) Thyroid Stimulating Hormone (TSH) 0.415 uiU/mL (0.358-3.740) Test 10/11/18 22:00 10/12/18 04:00 10/12/18 09:00 10/12/18 10:10 Lactic Acid Level 3.00 mmol/L (0.66-2.22) H 3.10 mmol/L (0.4-2.0) H 3.30 mmol/L (0.66-2.22) H White Blood Count 21.1 K/UL (4.8-10.8) #H Red Blood Count 2.58 M/UL (4.70-6.10) L Hemoglobin 8.1 G/DL (14.2-18.0) L Hematocrit 24.1 % (42.0-52.0) L Mean Corpuscular Volume 93 FL (80-99) Mean Corpuscular Hemoglobin 31.3 PG (27.0-31.0) H Mean Corpuscular Hemoglobin Concent 33.5 G/DL (32.0-36.0) Red Cell Distribution Width 13.6 % (11.6-14.8) Platelet Count 237 K/UL (150-450) Mean Platelet Volume 5.2 FL (6.5-10.1) L Neutrophils (%) (Auto) % (45.0-75.0) Lymphocytes (%) (Auto) % (20.0-45.0) Monocytes (%) (Auto) % (1.0-10.0) Eosinophils (%) (Auto) % (0.0-3.0) Basophils (%) (Auto) % (0.0-2.0) Differential Total Cells Counted 100 Neutrophils % (Manual) 62 % (45-75) Lymphocytes % (Manual) 9 % (20-45) L Monocytes % (Manual) 3 % (1-10) Eosinophils % (Manual) 0 % (0-3) Basophils % (Manual) 0 % (0-2) Metamyelocytes % 1 % (0-0) H Myelocytes % 1 % (0-0) H Band Neutrophils 24 % (0-8) H Platelet Estimate Adequate Platelet Morphology Normal Hypochromasia 1+ Reticulocyte Count 0.8 % (0.0-2.0) Sickle Cell Screen Pending Hemoglobin A Pending Hemoglobin A2 Pending Hemoglobin C Pending Hemoglobin F () Pending Hemoglobin S Pending Variant Hemoglobin Pending Hemoglobin Electrophoresis Interp Pending Hemoglobin Interpretation Pending Hemoglobin Solubility Pending Prothrombin Time 13.9 SEC (9.30-11.50) H Prothromb Time International Ratio 1.3 (0.9-1.1) H Stool Occult Blood Negative (NEGATIVE) Sodium Level 132 MMOL/L (136-145) L Potassium Level 4.2 MMOL/L (3.5-5.1) Chloride Level 100 MMOL/L (98-107) Carbon Dioxide Level 20 MMOL/L (21-32) L Anion Gap 12 mmol/L (5-15) Blood Urea Nitrogen 29 mg/dL (7-18) H Creatinine 1.1 MG/DL (0.55-1.30) Estimat Glomerular Filtration Rate > 60 mL/min (>60) Glucose Level 241 MG/DL (74-106) H Hemoglobin A1c 9.1 % (4.3-6.0) H Calcium Level 8.6 MG/DL (8.5-10.1) Iron Level 14 ug/dL (50-175) L Total Iron Binding Capacity 152 ug/dL (250-450) L Percent Iron Saturation 9 % (15-50) L Unsaturated Iron Binding 138 ug/dL (112-346) Ferritin 1637 NG/ML (8-388) H Troponin I 0.125 ng/mL (0.000-0.056) Vitamin B12 Level > 2000 PG/ML (193-986) H Folate 16.2 NG/ML (8.6-58.9) Thyroid Stimulating Hormone (TSH) 0.367 uiU/mL (0.358-3.740) Cortisol AM Sample Pending Random Vancomycin Level 5.8 ug/mL Arterial Blood pH 7.474 (7.350-7.450) Arterial Blood Partial Pressure CO2 30.1 mmHg (35.0-45.0) L Arterial Blood Partial Pressure O2 97.3 mmHg (75.0-100.0) Arterial Blood HCO3 21.6 mmol/L (22.0-26.0) L Arterial Blood Oxygen Saturation 97.1 % (95-100) Arterial Blood Base Excess -1.6 (-2-2) José Miguel Test Positive General Appearance: no apparent distress Head: normocephalic EENT: PERRL/EOMI Neck: supple, tracheotomy +++ Respiratory: normal breath sounds, no respiratory distress Cardiovascular: normal rate Gastrointestinal: normal inspection, non tender, soft, normal bowel sounds, non -distended, gt+++ Rectal: deferred Genitourinary: deferred Musculoskeletal: normal inspection, back normal Skin: normal color, no rash, warm/dry Lymphatic: normal inspection, no adenopathy Current Medications Current Medications Medications (Trade) Dose Ordered Sig/Last Route PRN Reason Start Time Stop Time Status Last Admin Dose Admin Acetaminophen (Tylenol) 650 mg Q4H PRN RECTAL Prn Headache/Temp > 101 10/11/18 19:00 11/10/18 18:59 Albuterol/ Ipratropium (Albuterol/ Ipratropium) 3 ml Q4H PRN HHN Shortness of Breath 10/11/18 19:00 10/16/18 18:59 Dextrose/Sodium Chloride 1,000 ml @ 100 mls/hr Q10H IV 10/11/18 19:03 11/10/18 19:02 10/12/18 05:00 Heparin Sodium (Porcine) (Heparin 5000 units/ml) 5,000 units EVERY 12 HOURS SUBQ 10/11/18 21:00 11/10/18 20:59 10/12/18 09:00 Hydrocortisone (Solu-CORTEF) 100 mg EVERY 8 HOURS IV 10/11/18 22:00 11/10/18 21:59 10/12/18 14:00 Midazolam HCl (Versed 2mg/2ml vial) 2 mg Q4H PRN IVP Agitation 10/11/18 19:00 11/10/18 18:59 Norepinephrine Bitartrate 8 mg/ Dextrose 508 ml @ 0 mls/hr Q24H IV 10/11/18 19:00 11/10/18 18:59 10/11/18 22:00 Piperacillin Sod/ Tazobactam Sod 3.375 gm/Sodium Chloride 110 ml @ 27.5 mls/hr EVERY 8 HOURS IVPB 10/11/18 22:00 10/16/18 21:59 10/12/18 14:00 Vancomycin HCl (Vanco rx to dose) 1 ea DAILY PRN MISC Per rx protocol 10/11/18 19:00 11/10/18 18:59 Vancomycin HCl 750 mg/Sodium Chloride 275 ml @ 183.333 mls/hr Q12HR IVPB 10/12/18 09:00 10/17/18 08:59 10/12/18 09:00 Vasopressin 100 units/Sodium Chloride 100 ml @ 2.4 mls/hr Q24H IV 10/12/18 20:00 11/10/18 19:59 Assessment and Recs: # Anemia of chronic disease -- panel has been ordered and reviewed --> maintain hgb above 7 --> panel reviewd, no hemolysis, peripheral smear is wnl --> monitor for bleeding --> gi recs appreciated # Coagulopathy - potentailly related to decreased po intake --> consider vit K prior to any proecedure --> ffp as well if patient bleeds # Gastrostomy tube dependent --> started tube feeds # Rectal tube to send for c.diff # Clostridium difficile diarrhea # Dehydration # Iron deficiency # Tracheostomy care # Encephalopathy Greatly appreciate conusultatioN! Antonio Higgins MD Oct 12, 2018 15:47
--- NOTE | 2018-10-12 16:00 | NUR ---
NURSE NOTES: Turned and repositioned. No new orders. Will continue to monitor patient.
--- NOTE | 2018-10-12 16:15 | Cardiology Report ---
APPROVED REPORT EXAM: Two-dimensional and M-mode echocardiogram with Doppler and color Doppler. INDICATION TACHYCARDIA M-Mode DIMENSIONS IVSd0.6 (0.7-1.1cm)Left Atrium (MM)2.8 (1.6-4.0cm) LVDd3.3 (3.5-5.6cm)Aortic Root2.5 (2.0-3.7cm) PWd1.1 (0.7-1.1cm)Aortic Cusp Exc.1.6 (1.5-2.0cm) IVSs0.9 cm LVDs2.4 (2.5-4.0cm) PWs1.2 cm Technically difficult study due to poor acoustical windows. Normal left ventricular chamber size, global LV hypokensis with depressed systolic function . Study quality precludes accurate assessment of regional wall motion. Left ventricular ejection fraction estimated to be 40 %. Mild left ventricular hypertrophy by 2-D. Anterior Echo-free space, may be due to pericardial fat or effusion. All other cardiac chamber sizes within normal limits . Mild aortic valve sclerosis with adequate cusp excursion. Thickened mitral valve leaflets with normal excursion. Mild mitral annulus and aortic root calcification. Pulmonic valve not well visualized. IVC at size 1.5 cm without physiologic collapse suggestive of increased RA pressure. A color flow and spectral Doppler study was performed and revealed: No aortic regurgitation. Mitral diastolic velocities suggest reduced left ventricular relaxation c/w mild LV diastolic dysfunction (Grade I ) Trace mitral regurgitation. Trace tricuspid regurgitation. Tricuspid systolic velocities suggests peak right ventricular systolic pressure of 10mmHg.
--- NOTE | 2018-10-12 16:59 | Cardiology Report ---
APPROVED REPORT EKG Measurement Heart [id number] Sinus tachycardia Septal infarct, age undetermined Abnormal ECG
--- NOTE | 2018-10-12 18:27 | NUR ---
NURSE NOTES: Turned and repositioned. VSS. Will continue plan of care.
--- NOTE | 2018-10-12 19:11 | NUR ---
HAND-OFF: Report given to KOLE Rankin using SBAR. VSS. No distress noted.
[2018-10-12] MEDS: Vasopressin 100 UNITS in NS 95 ML IV SCH (20:00)
--- NOTE | 2018-10-12 20:00 | NUR ---
NURSE NOTES: Patient received from Ani RN. Patient is obtunded, on a trached and hooked on Aerosol oxygen treatment with FiO2 of 30%, 8L spo2 of 100%. Levophed and vasopressin and d5NS via R femoral TLC. Afebrile. Rectal tube and Castrejon noted. Patient has P200 mattress noted, NAD at this time. Patient repositioned and adjusted pillow upon physical assessment.
[2018-10-12] MEDS: Iron Sucrose 100 MG in NS 55 ML IV SCH (21:00)
--- NOTE | 2018-10-12 22:00 | NUR ---
NURSE NOTES: Patient repositioned, suctioned and oral care provided. Vital remains stable, Pressors ongoing, maintance fluids ongoing, feeding ongoing Vital AF at 40ml. G-tube remains patent and intact.
--- NOTE | 2018-10-12 23:15 | Consultation ---
DATE OF CONSULTATION: 10/12/2018 INFECTIOUS DISEASES CONSULTATION CONSULTING PHYSICIAN: Lucas Bravo M.D. PRIMARY ATTENDING PHYSICIAN: Lula Aaron M.D. REASON FOR CONSULTATION: Septic shock. HISTORY OF PRESENT ILLNESS: The patient is a 53-year-old male who is a penit[facility]iary resident admitted yesterday with altered mental status, . The patient has a recent history of CVA and was admitted to [facility] in August of 2018, never fully recovered, and was transferred to the penitentiary with tracheostomy and G-tube placement. PAST MEDICAL HISTORY: As mentioned CVA, tracheostomy, G-tube placement, chronic respiratory failure, diabetes. ALLERGIES: No known drug allergies. MEDICATIONS: Vancomycin, hydrocortisone, Zosyn, heparin, norepinephrine, midazolam, albuterol ipratropium. No other history obtainable. CODE STATUS: The patient's Code status is DNR/DNI PHYSICAL EXAMINATION: VITAL SIGNS: Temperature 99.5, had a T-max of 102.8, pulse 99, blood pressure 93/61, heart rate of 120 at the time of admission. GENERAL APPEARANCE: Seems to be thin. HEAD AND NECK: Status post tracheostomy. HEART: Regular. Tachycardic. Lungs: Clear on ventilator. ABDOMEN: Soft. G-tube in place. EXTREMITIES: Has no edema. NEUROLOGIC: Nonresponsive, vegetative state. LABORATORY AND DIAGNOSTIC DATA: Sodium 132, potassium 4.2, chloride 100, bicarb 20, BUN 29, glucose 241. WBC elevated, hemoglobin 8.1, hematocrit 24.1, platelets 237. ABG at the time of admission showed hypoxia with pCO2 of 70, pO2 74.8. Chest x-ray show bilateral right greater than interstitial infiltrates. UA showed wbc's too numerous to count, rbc's too numerous to count, leukocyte esterase 2+. Urine culture growing gram-negative rods. IMPRESSION: Sepsis with septic shock. The patient seems to have urinary tract infection, may have pneumonia, acute renal failure, lactic acidosis, acute on chronic respiratory failure with hypoxemia, anemia, diabetes mellitus. RECOMMENDATION: We will continue current antibiotic, vancomycin and Zosyn. We will follow up the cultures. We will follow up with the family regarding their comfort care. Case was discussed with alarm field technician. At the end of my exam, I thank Dr. Aaron for involving me in the care of the patient. Lucas Bravo M.D. DR: Jered JOB#: [id number] CC: SHAQUILLE
--- NOTE | 2018-10-12 23:46 | Cardiology Progress Note ---
Assessment/Plan Assessment/Plan 1. Septic shock, due to B/L pneumonia, continue vasopressin, keep MAP >65 mmHg, consider IV fluid administration. IV ABx therapy. 2. Dyspnea due to B/L pneumonia, 2D echo revealing + wall motion abnormalities in the septal wall, ? ischemic CM, LVEF ~45%. 3. CVA with severe debilitation, consider ASA and statins. 4. Dysphagia, s/p PEG placement. 5. VDRF, s/p tracheostomy placement. Subjective Subjective Sinus rhythm at rate of 77. Objective Last 24 Hour Vital Signs Date Time Temp Pulse Resp B/P (MAP) Pulse Ox O2 Delivery O2 Flow Rate FiO2 10/12/18 23:00 78 25 105/69 (81) 100 10/12/18 22:00 77 18 83/47 (59) 100 10/12/18 21:30 78 24 81/54 (63) 100 10/12/18 21:00 79 24 95/58 (70) 100 10/12/18 20:30 78 21 97/62 (74) 100 10/12/18 20:00 77 10/12/18 20:00 T-piece 10/12/18 20:00 96.9 80 19 95/63 (74) 99 10/12/18 20:00 8.0 30 10/12/18 19:00 98 Trach Collar 8.0 30 10/12/18 19:00 Trach Collar 8.0 30 10/12/18 19:00 90 16 102/62 (75) 100 10/12/18 18:30 88 17 104/60 (75) 100 10/12/18 18:00 90 17 105/64 (78) 100 10/12/18 17:30 88 18 104/66 (79) 100 10/12/18 17:00 87 18 100/68 (79) 100 10/12/18 16:30 85 18 98/64 (75) 100 10/12/18 16:00 98.3 86 15 108/66 (80) 100 10/12/18 16:00 30 10/12/18 16:00 Mechanical Ventilator 10/12/18 16:00 87 10/12/18 15:30 87 18 103/66 (78) 100 10/12/18 15:00 94 18 108/68 (81) 100 10/12/18 14:30 88 18 104/66 (79) 100 10/12/18 14:30 86 16 116/72 (87) 100 10/12/18 14:00 87 15 112/69 (83) 100 10/12/18 14:00 85 18 105/66 (79) 100 10/12/18 13:30 87 19 100/64 (76) 100 10/12/18 13:00 Trach Collar 8.0 30 10/12/18 13:00 90 19 95/62 (73) 100 10/12/18 13:00 97 Trach Collar 8.0 30 10/12/18 12:30 85 19 98/60 (73) 100 10/12/18 12:00 Mechanical Ventilator 10/12/18 12:00 90 10/12/18 12:00 98.8 89 19 102/65 (77) 100 10/12/18 11:30 90 19 100/64 (76) 100 10/12/18 11:15 Trach Collar 8.0 30 10/12/18 11:15 97 Trach Collar 8.0 30 10/12/18 11:00 94 19 105/66 (79) 100 10/12/18 10:30 95 19 108/65 (79) 100 10/12/18 10:00 97 19 102/66 (78) 100 10/12/18 09:30 98 19 98/64 (75) 100 10/12/18 09:00 93 19 99/66 (77) 100 10/12/18 08:30 94 28 30 10/12/18 08:30 96 20 99/65 (76) 100 10/12/18 08:15 30 10/12/18 08:00 Mechanical Ventilator 10/12/18 08:00 94 18 95/62 (73) 100 10/12/18 08:00 94 10/12/18 08:00 40 10/12/18 07:30 99.0 95 17 87/60 (69) 100 10/12/18 07:00 99 17 93/61 (72) 100 10/12/18 07:00 88/64 10/12/18 06:40 94 30 40 10/12/18 06:30 98 38 87/60 (69) 100 10/12/18 06:00 95 25 102/66 (78) 100 10/12/18 06:00 102/66 10/12/18 05:30 93 27 99/70 (80) 100 10/12/18 05:07 101 30 40 10/12/18 05:00 75/45 10/12/18 05:00 101 26 101/55 (70) 100 10/12/18 04:00 Mechanical Ventilator 10/12/18 04:00 40 10/12/18 04:00 109 10/12/18 04:00 99.5 111 26 87/54 (65) 100 10/12/18 03:04 118 30 40 10/12/18 03:00 114 26 106/65 (79) 100 10/12/18 02:30 115 24 101/74 (83) 100 10/12/18 02:00 107/65 10/12/18 02:00 113 24 102/62 (75) 100 10/12/18 01:30 109 20 109/65 (80) 100 10/12/18 01:00 107 18 109/67 (81) 100 10/12/18 01:00 106/69 10/12/18 00:54 108 30 40 10/12/18 00:00 98.3 107 24 102/67 (79) 100 10/12/18 00:00 40 10/12/18 00:00 Mechanical Ventilator 10/12/18 00:00 110/70 10/12/18 00:00 105 Intake and Output 10/11/18 10/12/18 19:00 07:00 Intake Total 1858.84 ml Output Total 350 ml 2725 ml Balance -350 ml -866.16 ml Intake IV Total 1858.84 ml Output Urine Total 350 ml 2725 ml 2D Echo: LVEF 45%, Septal wall hypokinesia, Grade I LVDD Laboratory Tests Test 10/12/18 04:00 10/12/18 09:00 10/12/18 10:10 10/12/18 20:05 White Blood Count 21.1 K/UL (4.8-10.8) #H Red Blood Count 2.58 M/UL (4.70-6.10) L Hemoglobin 8.1 G/DL (14.2-18.0) L Hematocrit 24.1 % (42.0-52.0) L Mean Corpuscular Volume 93 FL (80-99) Mean Corpuscular Hemoglobin 31.3 PG (27.0-31.0) H Mean Corpuscular Hemoglobin Concent 33.5 G/DL (32.0-36.0) Red Cell Distribution Width 13.6 % (11.6-14.8) Platelet Count 237 K/UL (150-450) Mean Platelet Volume 5.2 FL (6.5-10.1) L Neutrophils (%) (Auto) % (45.0-75.0) Lymphocytes (%) (Auto) % (20.0-45.0) Monocytes (%) (Auto) % (1.0-10.0) Eosinophils (%) (Auto) % (0.0-3.0) Basophils (%) (Auto) % (0.0-2.0) Differential Total Cells Counted 100 Neutrophils % (Manual) 62 % (45-75) Lymphocytes % (Manual) 9 % (20-45) L Monocytes % (Manual) 3 % (1-10) Eosinophils % (Manual) 0 % (0-3) Basophils % (Manual) 0 % (0-2) Metamyelocytes % 1 % (0-0) H Myelocytes % 1 % (0-0) H Band Neutrophils 24 % (0-8) H Platelet Estimate Adequate Platelet Morphology Normal Hypochromasia 1+ Reticulocyte Count 0.8 % (0.0-2.0) Sickle Cell Screen Pending Hemoglobin A Pending Hemoglobin A2 Pending Hemoglobin C Pending Hemoglobin F () Pending Hemoglobin S Pending Variant Hemoglobin Pending Hemoglobin Electrophoresis Interp Pending Hemoglobin Interpretation Pending Hemoglobin Solubility Pending Prothrombin Time 13.9 SEC (9.30-11.50) H Prothromb Time International Ratio 1.3 (0.9-1.1) H Stool Occult Blood Negative (NEGATIVE) Sodium Level 132 MMOL/L (136-145) L Potassium Level 4.2 MMOL/L (3.5-5.1) Chloride Level 100 MMOL/L (98-107) Carbon Dioxide Level 20 MMOL/L (21-32) L Anion Gap 12 mmol/L (5-15) Blood Urea Nitrogen 29 mg/dL (7-18) H Creatinine 1.1 MG/DL (0.55-1.30) Estimat Glomerular Filtration Rate > 60 mL/min (>60) Glucose Level 241 MG/DL (74-106) H Hemoglobin A1c 9.1 % (4.3-6.0) H Lactic Acid Level 3.10 mmol/L (0.4-2.0) H 3.30 mmol/L (0.66-2.22) H 2.20 mmol/L (0.4-2.0) H Calcium Level 8.6 MG/DL (8.5-10.1) Iron Level 14 ug/dL (50-175) L Total Iron Binding Capacity 152 ug/dL (250-450) L Percent Iron Saturation 9 % (15-50) L Unsaturated Iron Binding 138 ug/dL (112-346) Ferritin 1637 NG/ML (8-388) H Troponin I 0.125 ng/mL (0.000-0.056) Vitamin B12 Level > 2000 PG/ML (193-986) H Folate 16.2 NG/ML (8.6-58.9) Thyroid Stimulating Hormone (TSH) 0.367 uiU/mL (0.358-3.740) Cortisol AM Sample Pending Random Vancomycin Level 5.8 ug/mL Arterial Blood pH 7.474 (7.350-7.450) Arterial Blood Partial Pressure CO2 30.1 mmHg (35.0-45.0) L Arterial Blood Partial Pressure O2 97.3 mmHg (75.0-100.0) Arterial Blood HCO3 21.6 mmol/L (22.0-26.0) L Arterial Blood Oxygen Saturation 97.1 % (95-100) Arterial Blood Base Excess -1.6 (-2-2) José Miguel Test Positive Microbiology Date/Time Source Procedure Growth Status 10/11/18 15:00 Urine,Clean Catch Urine Culture - Preliminary Gram Negative Bacillus 1 Resulted 10/11/18 16:15 Rectum Received Objective HEENT: Atraumatic, bitemporal wasting, dry mucosal membranes, PERRLA NECK: cannot assess JVP, tracheostomy tube in place. HEART: Regular rate and rhythm. Tachycardic. No murmurs, gallops or rubs. Lungs: Bibasilar crackles. ABDOMEN: Soft, NT/ND, + BS. G-tube in place. EXTREMITIES: No edema, clubbing or cyanosis. NEUROLOGIC: Nonresponsive, vegetative state. Davy Estrada MD Oct 12, 2018 23:46
[2018-10-13] VITALS (25 sets, daily range): BP systolic 78–140; BP diastolic 47–74
--- NOTE | 2018-10-13 | NUR ---
NURSE NOTES: Patient repositioned, Vitals remains stable, pressors ongoing, afebrile, suctioned and provided oral hygiene.
--- NOTE | 2018-10-13 01:54 | NUR ---
NURSE NOTES: Patient repositioned and provided oral care, remains afebrile. Pressors are ongoing, maintenance fluids ongoing, NAD. Rectal tube in place. Will continue to monitor.
--- NOTE | 2018-10-13 04:00 | NUR ---
NURSE NOTES: Patient cleaned and repositioned, NAD, Suctioned, central line dressing changed earlier, tube feeds continue.
[2018-10-13 04:27] LABS: HEMATOCRIT 20.4 % (42.0-52.0); MEAN CORPUSCULAR VOLUME 94 FL (80-99); PLATELET COUNT 174 K/UL (150-450); RED BLOOD COUNT 2.18 M/UL (4.70-6.10); RED CELL DISTRIBUTION WIDTH 13.8 % (11.6-14.8); WHITE BLOOD COUNT 21.6 K/UL (4.8-10.8)
[2018-10-13 05:25] LABS: ANION GAP 8 mmol/L (5-15); BLOOD UREA NITROGEN 20 mg/dL (7-18); CALCIUM 8.6 MG/DL (8.5-10.1); CARBON DIOXIDE 24 MMOL/L (21-32); CHLORIDE 102 MMOL/L (98-107); CREATININE 0.7 MG/DL (0.55-1.30); PHOSPHORUS 1.7 MG/DL (2.5-4.9); POTASSIUM 3.4 MMOL/L (3.5-5.1); SODIUM 134 MMOL/L (136-145)
[2018-10-13] MEDS: D5NS 1,000 ML IV SCH ×2 (06:00→11:15)
--- NOTE | 2018-10-13 06:00 | NUR ---
NURSE NOTES: Vitals remains stable, Levophed placed on hold, while Vasopressin remains ongoing. NAD, deep suction provided.
[2018-10-13] MEDS: Zoysn 3.37gm in NS 100ML IVPB SCH ×3 (06:16→22:05)
[2018-10-13] MEDS: Hydrocortisone 100mg Inj IV SCH ×3 (06:16→22:05)
--- NOTE | 2018-10-13 06:33 | NUR ---
RESPIRATORY NOTE: Received patient on trach collar with cool aerosol 8Lpm, 30% FiO2. Patient is tolerating well. No SOB or resp distress noted. Suctioned patient PRN. Will continue to monitor pt
[2018-10-13] MEDS: Vasopressin 100 UNITS in NS 95 ML IV SCH (07:00)
--- NOTE | 2018-10-13 07:15 | NUR ---
NURSE NOTES: Patient received from KOLE Rankin. Patient appears to be obtunded. Patient does not appear in any acute distress. Patient is currently being monitored on the program facilitator VS 99/63, HR 72, RR 28, SPO2 99%. Patient is SR on the monitor. Patient currently has a tracheostomy with Shiley 6.0 with Aerosol oxygen at 8.0 L with 30% FiO2. Patient has Vital AF running at 50 ml/hr with no residual noted and a 50 ml flush given. Patient has a LFem running Vaso 0.04 and d5NS at 75 ml/hr. Patient is afebrile. Rectal tube is in place draining very pungent liquid stool to gravity. Patient has a conrad draining yellow urine to gravity. Safety measures are in place with bed locked in the lowest position HOB elevated at 30 degrees. Will continue to monitor and follow plan of care.
--- NOTE | 2018-10-13 09:36 | Pulmonolgy Critical Care Note ---
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 Respiratory: monitor respiratory rate, other - HHN's, TC, suction PRN Cardiac: continue pressors - Off NE, continue VASO, decrease HC to 75 TID Renal: decrease IV fluid - 50 cc/hr Infectious Disease: check cultures, continue antibiotics - Vanco/Zosyn D3 per ID Gastrointestinal: continue feedings/current rate Endocrine: monitor blood sugar Hematologic: monitor H/H, other - FOBT neg, transfuse PRN < 7 Prophylaxis: Protonix, Heparin Disposition: keep in ICU Time Spent (Minutes): 40 Notes Reviewed: brokerage clerk, cardio, ID, other - Heme-Onc, surgery Discussed with: nurses, consultants Critical Care - Objective Last 24 Hour Vital Signs Date Time Temp Pulse Resp B/P (MAP) Pulse Ox O2 Delivery O2 Flow Rate FiO2 10/13/18 07:00 70 31 98/61 (73) 100 10/13/18 06:33 Trach Collar 8.0 30 10/13/18 06:33 100 Trach Collar 8.0 30 10/13/18 06:00 72 19 97/63 (74) 100 10/13/18 05:00 77 28 125/65 (85) 100 10/13/18 04:00 8.0 30 10/13/18 04:00 73 10/13/18 04:00 98.1 78 29 93/64 (74) 100 10/13/18 04:00 Trach Collar 10/13/18 03:00 78 38 110/74 (86) 100 10/13/18 02:00 74 26 115/68 (84) 100 10/13/18 01:00 85 22 111/69 (83) 100 10/13/18 00:58 Trach Collar 8.0 30 10/13/18 00:58 100 Trach Collar 8.0 30 10/13/18 00:00 75 10/13/18 00:00 97.3 77 13 101/62 (75) 100 10/13/18 00:00 Trach Collar 10/12/18 23:00 78 25 105/69 (81) 100 10/12/18 22:00 77 18 83/47 (59) 100 10/12/18 21:30 78 24 81/54 (63) 100 10/12/18 21:00 79 24 95/58 (70) 100 10/12/18 20:30 78 21 97/62 (74) 100 10/12/18 20:00 77 10/12/18 20:00 T-piece 10/12/18 20:00 96.9 80 19 95/63 (74) 99 10/12/18 20:00 8.0 30 10/12/18 19:00 98 Trach Collar 8.0 30 10/12/18 19:00 Trach Collar 8.0 30 10/12/18 19:00 90 16 102/62 (75) 100 10/12/18 18:30 88 17 104/60 (75) 100 10/12/18 18:00 90 17 105/64 (78) 100 10/12/18 17:30 88 18 104/66 (79) 100 10/12/18 17:00 87 18 100/68 (79) 100 10/12/18 16:30 85 18 98/64 (75) 100 10/12/18 16:00 98.3 86 15 108/66 (80) 100 10/12/18 16:00 30 10/12/18 16:00 Mechanical Ventilator 10/12/18 16:00 87 10/12/18 15:30 87 18 103/66 (78) 100 10/12/18 15:00 94 18 108/68 (81) 100 10/12/18 14:30 88 18 104/66 (79) 100 10/12/18 14:30 86 16 116/72 (87) 100 10/12/18 14:00 87 15 112/69 (83) 100 10/12/18 14:00 85 18 105/66 (79) 100 10/12/18 13:30 87 19 100/64 (76) 100 10/12/18 13:00 Trach Collar 8.0 30 10/12/18 13:00 90 19 95/62 (73) 100 10/12/18 13:00 97 Trach Collar 8.0 30 10/12/18 12:30 85 19 98/60 (73) 100 10/12/18 12:00 Mechanical Ventilator 10/12/18 12:00 90 10/12/18 12:00 98.8 89 19 102/65 (77) 100 10/12/18 11:30 90 19 100/64 (76) 100 10/12/18 11:15 Trach Collar 8.0 30 10/12/18 11:15 97 Trach Collar 8.0 30 10/12/18 11:00 94 19 105/66 (79) 100 10/12/18 10:30 95 19 108/65 (79) 100 10/12/18 10:00 97 19 102/66 (78) 100 10/12/18 09:30 98 19 98/64 (75) 100 Status: obtunded Condition: improving HEENT: atraumatic, normocephalic Lungs: rhonchi Heart: HR/BP unstable Abdomen: soft, non-tender, active bowel sounds, feeding tube Extremities: no C/C/E Micro: Microbiology Date/Time Source Procedure Growth Status 10/12/18 04:00 Stool Clostridium difficile Toxin Assay - Final Complete 10/11/18 15:00 Urine,Clean Catch Urine Culture - Preliminary Gram Negative Bacillus 1 Resulted 10/11/18 16:15 Rectum Received Blood Sugars: BS controlled Critical Care - Subjective ROS Limited/Unobtainable: Yes ICU Day: 3 Intubation Day: on TC Interval Events: Off Ne, still on Vaso 0.05 --> MAP ~ 60 No distress Hb 7 FOBT neg Condition: stable IV Access: central EKG Rhythm: Sinus Rhythm FI02: 30 Vent Support Breath Rate: 16 Vent Support Mode: CPAP Vent Tidal Volume: 450 Sputum Amount: Moderate PEEP: 5.0 PIP: 15 Secretions: Mod/dry trach + oral Fluids: D5NS@100 Drips: Vaso 0.04, off NE Tube Feeding Amount: 30 I&O: Intake and Output 10/12/18 10/13/18 19:00 07:00 Intake Total 1506.923 ml 1711.56 ml Output Total 1360 ml 1020 ml Balance 146.923 ml 691.56 ml Intake Free Water 100 ml IV Total 1506.923 ml 1271.56 ml Tube Feeding 340 ml Output Urine Total 1360 ml 1020 ml Subjective: ISSAC Labs: Laboratory Tests Test 10/12/18 10:10 10/12/18 20:05 10/13/18 04:00 Lactic Acid Level 3.30 mmol/L (0.66-2.22) H 2.20 mmol/L (0.4-2.0) H 1.80 mmol/L (0.4-2.0) White Blood Count 21.6 K/UL (4.8-10.8) H Red Blood Count 2.18 M/UL (4.70-6.10) L Hemoglobin 7.0 G/DL (14.2-18.0) L Hematocrit 20.4 % (42.0-52.0) L Mean Corpuscular Volume 94 FL (80-99) Mean Corpuscular Hemoglobin 32.0 PG (27.0-31.0) H Mean Corpuscular Hemoglobin Concent 34.1 G/DL (32.0-36.0) Red Cell Distribution Width 13.8 % (11.6-14.8) Platelet Count 174 K/UL (150-450) Mean Platelet Volume 5.9 FL (6.5-10.1) L Neutrophils (%) (Auto) % (45.0-75.0) Lymphocytes (%) (Auto) % (20.0-45.0) Monocytes (%) (Auto) % (1.0-10.0) Eosinophils (%) (Auto) % (0.0-3.0) Basophils (%) (Auto) % (0.0-2.0) Differential Total Cells Counted 100 Neutrophils % (Manual) 81 % (45-75) H Lymphocytes % (Manual) 8 % (20-45) L Monocytes % (Manual) 2 % (1-10) Eosinophils % (Manual) 0 % (0-3) Basophils % (Manual) 0 % (0-2) Band Neutrophils 9 % (0-8) H Platelet Estimate Adequate Platelet Morphology Normal Hypochromasia 1+ Sodium Level 134 MMOL/L (136-145) L Potassium Level 3.4 MMOL/L (3.5-5.1) L Chloride Level 102 MMOL/L (98-107) Carbon Dioxide Level 24 MMOL/L (21-32) Anion Gap 8 mmol/L (5-15) Blood Urea Nitrogen 20 mg/dL (7-18) H Creatinine 0.7 MG/DL (0.55-1.30) Estimat Glomerular Filtration Rate > 60 mL/min (>60) Glucose Level 268 MG/DL (74-106) H Calcium Level 8.6 MG/DL (8.5-10.1) Phosphorus Level 1.7 MG/DL (2.5-4.9) L Magnesium Level 1.8 MG/DL (1.8-2.4) Jordy Lou MD Oct 13, 2018 09:36
--- NOTE | 2018-10-13 10:06 | Infectious Diseases Prog Note ---
Assessment/Plan Assessment/Plan IMPRESSION: Sepsis with septic shock. Urinary tract infection, pneumonia, acute renal failure, resolving lactic acidosis, resolving acute on chronic respiratory failure with hypoxemia, anemia, diabetes mellitus. Anemia Diarrhea, C. difficile negative P: Continue Vancomycin & Zosyn Will f/u cultures Subjective ROS Limited/Unobtainable: Yes Respiratory: Reports: other - off ventilator Cardiovascular: Reports: other - vasopressor dose is decreasing Gastrointestinal/Abdominal: Reports: diarrhea Allergies: Coded Allergies: No Known Allergies (Unverified , 10/11/18) Objective Vital Signs Last 24 Hour Vital Signs Date Time Temp Pulse Resp B/P (MAP) Pulse Ox O2 Delivery O2 Flow Rate FiO2 10/13/18 07:00 70 31 98/61 (73) 100 10/13/18 06:33 Trach Collar 8.0 30 10/13/18 06:33 100 Trach Collar 8.0 30 10/13/18 06:00 72 19 97/63 (74) 100 10/13/18 05:00 77 28 125/65 (85) 100 10/13/18 04:00 8.0 30 10/13/18 04:00 73 10/13/18 04:00 98.1 78 29 93/64 (74) 100 10/13/18 04:00 Trach Collar 10/13/18 03:00 78 38 110/74 (86) 100 10/13/18 02:00 74 26 115/68 (84) 100 10/13/18 01:00 85 22 111/69 (83) 100 10/13/18 00:58 Trach Collar 8.0 30 10/13/18 00:58 100 Trach Collar 8.0 30 10/13/18 00:00 75 10/13/18 00:00 97.3 77 13 101/62 (75) 100 10/13/18 00:00 Trach Collar 10/12/18 23:00 78 25 105/69 (81) 100 10/12/18 22:00 77 18 83/47 (59) 100 10/12/18 21:30 78 24 81/54 (63) 100 10/12/18 21:00 79 24 95/58 (70) 100 10/12/18 20:30 78 21 97/62 (74) 100 10/12/18 20:00 77 10/12/18 20:00 T-piece 10/12/18 20:00 96.9 80 19 95/63 (74) 99 10/12/18 20:00 8.0 30 10/12/18 19:00 98 Trach Collar 8.0 30 10/12/18 19:00 Trach Collar 8.0 30 10/12/18 19:00 90 16 102/62 (75) 100 10/12/18 18:30 88 17 104/60 (75) 100 10/12/18 18:00 90 17 105/64 (78) 100 10/12/18 17:30 88 18 104/66 (79) 100 10/12/18 17:00 87 18 100/68 (79) 100 10/12/18 16:30 85 18 98/64 (75) 100 10/12/18 16:00 98.3 86 15 108/66 (80) 100 10/12/18 16:00 30 10/12/18 16:00 Mechanical Ventilator 10/12/18 16:00 87 10/12/18 15:30 87 18 103/66 (78) 100 10/12/18 15:00 94 18 108/68 (81) 100 10/12/18 14:30 88 18 104/66 (79) 100 10/12/18 14:30 86 16 116/72 (87) 100 10/12/18 14:00 87 15 112/69 (83) 100 10/12/18 14:00 85 18 105/66 (79) 100 10/12/18 13:30 87 19 100/64 (76) 100 10/12/18 13:00 Trach Collar 8.0 30 10/12/18 13:00 90 19 95/62 (73) 100 10/12/18 13:00 97 Trach Collar 8.0 30 10/12/18 12:30 85 19 98/60 (73) 100 10/12/18 12:00 Mechanical Ventilator 10/12/18 12:00 90 10/12/18 12:00 98.8 89 19 102/65 (77) 100 10/12/18 11:30 90 19 100/64 (76) 100 10/12/18 11:15 Trach Collar 8.0 30 10/12/18 11:15 97 Trach Collar 8.0 30 10/12/18 11:00 94 19 105/66 (79) 100 10/12/18 10:30 95 19 108/65 (79) 100 10/12/18 10:00 97 19 102/66 (78) 100 Height (Feet): 5 Height (Inches): 7.00 Weight (Pounds): 124 HEENT: status post trach Respiratory/Chest: lungs clear, other - on T bar Abdomen: soft, non tender, other - GT feeding, rectal tube Extremities: no edema Neurologic/Psychiatric: unresponsiveness Microbiology Date/Time Source Procedure Growth Status 10/12/18 04:00 Stool Clostridium difficile Toxin Assay - Final Complete 10/11/18 15:00 Urine,Clean Catch Urine Culture - Preliminary Gram Negative Bacillus 1 Resulted 10/11/18 16:15 Rectum Received Laboratory Tests Test 10/12/18 10:10 10/12/18 20:05 10/13/18 04:00 Lactic Acid Level 3.30 mmol/L (0.66-2.22) H 2.20 mmol/L (0.4-2.0) H 1.80 mmol/L (0.4-2.0) White Blood Count 21.6 K/UL (4.8-10.8) H Red Blood Count 2.18 M/UL (4.70-6.10) L Hemoglobin 7.0 G/DL (14.2-18.0) L Hematocrit 20.4 % (42.0-52.0) L Mean Corpuscular Volume 94 FL (80-99) Mean Corpuscular Hemoglobin 32.0 PG (27.0-31.0) H Mean Corpuscular Hemoglobin Concent 34.1 G/DL (32.0-36.0) Red Cell Distribution Width 13.8 % (11.6-14.8) Platelet Count 174 K/UL (150-450) Mean Platelet Volume 5.9 FL (6.5-10.1) L Neutrophils (%) (Auto) % (45.0-75.0) Lymphocytes (%) (Auto) % (20.0-45.0) Monocytes (%) (Auto) % (1.0-10.0) Eosinophils (%) (Auto) % (0.0-3.0) Basophils (%) (Auto) % (0.0-2.0) Differential Total Cells Counted 100 Neutrophils % (Manual) 81 % (45-75) H Lymphocytes % (Manual) 8 % (20-45) L Monocytes % (Manual) 2 % (1-10) Eosinophils % (Manual) 0 % (0-3) Basophils % (Manual) 0 % (0-2) Band Neutrophils 9 % (0-8) H Platelet Estimate Adequate Platelet Morphology Normal Hypochromasia 1+ Sodium Level 134 MMOL/L (136-145) L Potassium Level 3.4 MMOL/L (3.5-5.1) L Chloride Level 102 MMOL/L (98-107) Carbon Dioxide Level 24 MMOL/L (21-32) Anion Gap 8 mmol/L (5-15) Blood Urea Nitrogen 20 mg/dL (7-18) H Creatinine 0.7 MG/DL (0.55-1.30) Estimat Glomerular Filtration Rate > 60 mL/min (>60) Glucose Level 268 MG/DL (74-106) H Calcium Level 8.6 MG/DL (8.5-10.1) Phosphorus Level 1.7 MG/DL (2.5-4.9) L Magnesium Level 1.8 MG/DL (1.8-2.4) Current Medications Medications (Trade) Dose Ordered Sig/Last Route PRN Reason Start Time Stop Time Status Last Admin Dose Admin Acetaminophen (Tylenol) 650 mg Q4H PRN RECTAL Prn Headache/Temp > 101 10/11/18 19:00 11/10/18 18:59 Albuterol/ Ipratropium (Albuterol/ Ipratropium) 3 ml Q4H PRN HHN Shortness of Breath 10/11/18 19:00 10/16/18 18:59 Dextrose/Sodium Chloride 1,000 ml @ 50 mls/hr Q20H IV 10/13/18 09:41 11/10/18 09:40 Heparin Sodium (Porcine) (Heparin 5000 units/ml) 5,000 units EVERY 12 HOURS SUBQ 10/11/18 21:00 11/10/18 20:59 10/12/18 21:00 Hydrocortisone (Solu-CORTEF) 75 mg EVERY 8 HOURS IV 10/13/18 14:00 11/10/18 21:59 Iron Sucrose 100 mg/Sodium Chloride 60 ml @ 240 mls/hr BEDTIME IV 10/12/18 21:00 10/14/18 21:14 10/12/18 21:00 Midazolam HCl (Versed 2mg/2ml vial) 2 mg Q4H PRN IVP Agitation 10/11/18 19:00 11/10/18 18:59 Norepinephrine Bitartrate 8 mg/ Dextrose 508 ml @ 0 mls/hr Q24H IV 10/11/18 19:00 11/10/18 18:59 10/11/18 22:00 Piperacillin Sod/ Tazobactam Sod 3.375 gm/Sodium Chloride 110 ml @ 27.5 mls/hr EVERY 8 HOURS IVPB 10/11/18 22:00 10/16/18 21:59 10/13/18 06:16 Vancomycin HCl (Vanco rx to dose) 1 ea DAILY PRN MISC Per rx protocol 10/11/18 19:00 11/10/18 18:59 Vancomycin HCl 750 mg/Sodium Chloride 275 ml @ 183.333 mls/hr Q12HR IVPB 10/12/18 09:00 10/17/18 08:59 10/12/18 21:00 Vasopressin 100 units/Sodium Chloride 100 ml @ 2.4 mls/hr Q24H IV 10/12/18 20:00 11/10/18 19:59 Lucas Bravo MD Oct 13, 2018 10:06
--- NOTE | 2018-10-13 11:00 | GI Progress Note ---
Assessment/Plan Problems: (1) Gastrostomy tube dependent ICD Codes: Z93.1 - Gastrostomy status SNOMED: 349372443, 502202965 (2) Anemia ICD Codes: D64.9 - Anemia, unspecified SNOMED: 542461052 (3) Iron deficiency ICD Codes: E61.1 - Iron deficiency SNOMED: 88057156 (4) Dehydration ICD Codes: E86.0 - Dehydration SNOMED: 40262705 (5) Feeding by G-tube ICD Codes: Z93.1 - Gastrostomy status SNOMED: 390233617, 428682728, 006319943 Status: stable Status Narrative Discussed with Dr. Dixon. Assessment/Plan Anemia workup reviewed. Iron deficiency. OB stool negative. G-tube dependent Rectal tube present Cdiff negative G-tube feeding per RD to goal Reglan for GI motility if needed monitor H&H, as needed transfusions Antibiotics venofer No plans for GI procedures unless urgent Follow labs The patient was seen and examined at bedside and all new and available data was reviewed in the patients chart. I agree with the above findings, impression and plan. (Patient seen earlier today. Signature stamp does not reflect patient encounter time.). - Gerson Dixon MD Subjective Subjective limited Objective Last 24 Hour Vital Signs Date Time Temp Pulse Resp B/P (MAP) Pulse Ox O2 Delivery O2 Flow Rate FiO2 10/13/18 07:00 70 31 98/61 (73) 100 10/13/18 06:33 Trach Collar 8.0 30 10/13/18 06:33 100 Trach Collar 8.0 30 10/13/18 06:00 72 19 97/63 (74) 100 10/13/18 05:00 77 28 125/65 (85) 100 10/13/18 04:00 8.0 30 10/13/18 04:00 73 10/13/18 04:00 98.1 78 29 93/64 (74) 100 10/13/18 04:00 Trach Collar 10/13/18 03:00 78 38 110/74 (86) 100 10/13/18 02:00 74 26 115/68 (84) 100 10/13/18 01:00 85 22 111/69 (83) 100 10/13/18 00:58 Trach Collar 8.0 30 10/13/18 00:58 100 Trach Collar 8.0 30 10/13/18 00:00 75 10/13/18 00:00 97.3 77 13 101/62 (75) 100 10/13/18 00:00 Trach Collar 10/12/18 23:00 78 25 105/69 (81) 100 10/12/18 22:00 77 18 83/47 (59) 100 10/12/18 21:30 78 24 81/54 (63) 100 10/12/18 21:00 79 24 95/58 (70) 100 10/12/18 20:30 78 21 97/62 (74) 100 10/12/18 20:00 77 10/12/18 20:00 T-piece 10/12/18 20:00 96.9 80 19 95/63 (74) 99 10/12/18 20:00 8.0 30 10/12/18 19:00 98 Trach Collar 8.0 30 10/12/18 19:00 Trach Collar 8.0 30 10/12/18 19:00 90 16 102/62 (75) 100 10/12/18 18:30 88 17 104/60 (75) 100 10/12/18 18:00 90 17 105/64 (78) 100 10/12/18 17:30 88 18 104/66 (79) 100 10/12/18 17:00 87 18 100/68 (79) 100 10/12/18 16:30 85 18 98/64 (75) 100 10/12/18 16:00 98.3 86 15 108/66 (80) 100 10/12/18 16:00 30 10/12/18 16:00 Mechanical Ventilator 10/12/18 16:00 87 10/12/18 15:30 87 18 103/66 (78) 100 10/12/18 15:00 94 18 108/68 (81) 100 10/12/18 14:30 88 18 104/66 (79) 100 10/12/18 14:30 86 16 116/72 (87) 100 10/12/18 14:00 87 15 112/69 (83) 100 10/12/18 14:00 85 18 105/66 (79) 100 10/12/18 13:30 87 19 100/64 (76) 100 10/12/18 13:00 Trach Collar 8.0 30 10/12/18 13:00 90 19 95/62 (73) 100 10/12/18 13:00 97 Trach Collar 8.0 30 10/12/18 12:30 85 19 98/60 (73) 100 10/12/18 12:00 Mechanical Ventilator 10/12/18 12:00 90 10/12/18 12:00 98.8 89 19 102/65 (77) 100 10/12/18 11:30 90 19 100/64 (76) 100 10/12/18 11:15 Trach Collar 8.0 30 10/12/18 11:15 97 Trach Collar 8.0 30 10/12/18 11:00 94 19 105/66 (79) 100 Intake and Output 10/12/18 10/13/18 19:00 07:00 Intake Total 1506.923 ml 1711.56 ml Output Total 1360 ml 1020 ml Balance 146.923 ml 691.56 ml Intake Free Water 100 ml IV Total 1506.923 ml 1271.56 ml Tube Feeding 340 ml Output Urine Total 1360 ml 1020 ml Laboratory Tests Test 10/12/18 20:05 10/13/18 04:00 Lactic Acid Level 2.20 mmol/L (0.4-2.0) H 1.80 mmol/L (0.4-2.0) White Blood Count 21.6 K/UL (4.8-10.8) H Red Blood Count 2.18 M/UL (4.70-6.10) L Hemoglobin 7.0 G/DL (14.2-18.0) L Hematocrit 20.4 % (42.0-52.0) L Mean Corpuscular Volume 94 FL (80-99) Mean Corpuscular Hemoglobin 32.0 PG (27.0-31.0) H Mean Corpuscular Hemoglobin Concent 34.1 G/DL (32.0-36.0) Red Cell Distribution Width 13.8 % (11.6-14.8) Platelet Count 174 K/UL (150-450) Mean Platelet Volume 5.9 FL (6.5-10.1) L Neutrophils (%) (Auto) % (45.0-75.0) Lymphocytes (%) (Auto) % (20.0-45.0) Monocytes (%) (Auto) % (1.0-10.0) Eosinophils (%) (Auto) % (0.0-3.0) Basophils (%) (Auto) % (0.0-2.0) Differential Total Cells Counted 100 Neutrophils % (Manual) 81 % (45-75) H Lymphocytes % (Manual) 8 % (20-45) L Monocytes % (Manual) 2 % (1-10) Eosinophils % (Manual) 0 % (0-3) Basophils % (Manual) 0 % (0-2) Band Neutrophils 9 % (0-8) H Platelet Estimate Adequate Platelet Morphology Normal Hypochromasia 1+ Sodium Level 134 MMOL/L (136-145) L Potassium Level 3.4 MMOL/L (3.5-5.1) L Chloride Level 102 MMOL/L (98-107) Carbon Dioxide Level 24 MMOL/L (21-32) Anion Gap 8 mmol/L (5-15) Blood Urea Nitrogen 20 mg/dL (7-18) H Creatinine 0.7 MG/DL (0.55-1.30) Estimat Glomerular Filtration Rate > 60 mL/min (>60) Glucose Level 268 MG/DL (74-106) H Calcium Level 8.6 MG/DL (8.5-10.1) Phosphorus Level 1.7 MG/DL (2.5-4.9) L Magnesium Level 1.8 MG/DL (1.8-2.4) Height (Feet): 5 Height (Inches): 7.00 Weight (Pounds): 124 General Appearance: WD/WN, no apparent distress, alert Cardiovascular: normal rate Respiratory/Chest: normal breath sounds, no respiratory distress, other - tracheostomy Abdominal Exam: normal bowel sounds, non tender, soft, GT site - c/d/i Extremities: non-tender Gayatri Sofia [employer] Oct 13, 2018 11:00
[2018-10-13] MEDS: Vancomycin 750mg/NS 275ml IVPB SCH ×2 (11:10)
--- NOTE | 2018-10-13 11:11 | General Progress Note ---
Assessment/Plan Problem List: (1) Cerebral infarction ICD Codes: I63.9 - Cerebral infarction, unspecified SNOMED: 582114626 (2) Renal failure ICD Codes: N19 - Unspecified kidney failure SNOMED: 48389843 Qualifiers: Qualified Codes: N17.9 - Acute kidney failure, unspecified (3) Encephalopathy ICD Codes: G93.40 - Encephalopathy, unspecified SNOMED: 77796653 (4) Lactic acid acidosis ICD Codes: E87.2 - Acidosis SNOMED: 30583646 (5) Tracheostomy care ICD Codes: Z43.0 - Encounter for attention to tracheostomy SNOMED: 582226871 (6) LUZ MARIA (acute kidney injury) ICD Codes: N17.9 - Acute kidney failure, unspecified SNOMED: 01899977 (7) DNAR (do not attempt resuscitation) ICD Codes: Z66 - Do not resuscitate SNOMED: 259200562 (8) Dehydration ICD Codes: E86.0 - Dehydration SNOMED: 11311621 (9) Iron deficiency ICD Codes: E61.1 - Iron deficiency SNOMED: 22859580 Status: unchanged Assessment/Plan i have informed all the consultants to honor dpoa wishes and do comfort care only sepsis resp failure trach malnutition very poor prognosis family does not want any aggressive treatments/measures i Subjective ROS Limited/Unobtainable: Yes Allergies: Coded Allergies: No Known Allergies (Unverified , 10/11/18) Objective Last 24 Hour Vital Signs Date Time Temp Pulse Resp B/P (MAP) Pulse Ox O2 Delivery O2 Flow Rate FiO2 10/13/18 07:00 70 31 98/61 (73) 100 10/13/18 06:33 Trach Collar 8.0 30 10/13/18 06:33 100 Trach Collar 8.0 30 10/13/18 06:00 72 19 97/63 (74) 100 10/13/18 05:00 77 28 125/65 (85) 100 10/13/18 04:00 8.0 30 10/13/18 04:00 73 10/13/18 04:00 98.1 78 29 93/64 (74) 100 10/13/18 04:00 Trach Collar 10/13/18 03:00 78 38 110/74 (86) 100 10/13/18 02:00 74 26 115/68 (84) 100 10/13/18 01:00 85 22 111/69 (83) 100 10/13/18 00:58 Trach Collar 8.0 30 10/13/18 00:58 100 Trach Collar 8.0 30 10/13/18 00:00 75 10/13/18 00:00 97.3 77 13 101/62 (75) 100 10/13/18 00:00 Trach Collar 10/12/18 23:00 78 25 105/69 (81) 100 10/12/18 22:00 77 18 83/47 (59) 100 10/12/18 21:30 78 24 81/54 (63) 100 10/12/18 21:00 79 24 95/58 (70) 100 10/12/18 20:30 78 21 97/62 (74) 100 10/12/18 20:00 77 10/12/18 20:00 T-piece 10/12/18 20:00 96.9 80 19 95/63 (74) 99 10/12/18 20:00 8.0 30 10/12/18 19:00 98 Trach Collar 8.0 30 10/12/18 19:00 Trach Collar 8.0 30 10/12/18 19:00 90 16 102/62 (75) 100 10/12/18 18:30 88 17 104/60 (75) 100 10/12/18 18:00 90 17 105/64 (78) 100 10/12/18 17:30 88 18 104/66 (79) 100 10/12/18 17:00 87 18 100/68 (79) 100 10/12/18 16:30 85 18 98/64 (75) 100 10/12/18 16:00 98.3 86 15 108/66 (80) 100 10/12/18 16:00 30 10/12/18 16:00 Mechanical Ventilator 10/12/18 16:00 87 10/12/18 15:30 87 18 103/66 (78) 100 10/12/18 15:00 94 18 108/68 (81) 100 10/12/18 14:30 88 18 104/66 (79) 100 10/12/18 14:30 86 16 116/72 (87) 100 10/12/18 14:00 87 15 112/69 (83) 100 10/12/18 14:00 85 18 105/66 (79) 100 10/12/18 13:30 87 19 100/64 (76) 100 10/12/18 13:00 Trach Collar 8.0 30 10/12/18 13:00 90 19 95/62 (73) 100 10/12/18 13:00 97 Trach Collar 8.0 30 10/12/18 12:30 85 19 98/60 (73) 100 10/12/18 12:00 Mechanical Ventilator 10/12/18 12:00 90 10/12/18 12:00 98.8 89 19 102/65 (77) 100 10/12/18 11:30 90 19 100/64 (76) 100 10/12/18 11:15 Trach Collar 8.0 30 10/12/18 11:15 97 Trach Collar 8.0 30 Intake and Output 10/12/18 10/13/18 19:00 07:00 Intake Total 1506.923 ml 1711.56 ml Output Total 1360 ml 1020 ml Balance 146.923 ml 691.56 ml Intake Free Water 100 ml IV Total 1506.923 ml 1271.56 ml Tube Feeding 340 ml Output Urine Total 1360 ml 1020 ml Laboratory Tests 10/12/18 20:05: Lactic Acid Level 2.20H 10/13/18 04:00: Lactic Acid Level 1.80, White Blood Count 21.6H, Red Blood Count 2.18L, Hemoglobin 7.0L, Hematocrit 20.4L, Mean Corpuscular Volume 94, Mean Corpuscular Hemoglobin 32.0H, Mean Corpuscular Hemoglobin Concent 34.1, Red Cell Distribution Width 13.8, Platelet Count 174, Mean Platelet Volume 5.9L, Neutrophils (%) (Auto) , Lymphocytes (%) (Auto) , Monocytes (%) (Auto) , Eosinophils (%) (Auto) , Basophils (%) (Auto) , Differential Total Cells Counted 100, Neutrophils % (Manual) 81H, Lymphocytes % (Manual) 8L, Monocytes % (Manual) 2, Eosinophils % (Manual) 0, Basophils % (Manual) 0, Band Neutrophils 9H, Platelet Estimate Adequate, Platelet Morphology Normal, Hypochromasia 1+, Sodium Level 134L, Potassium Level 3.4L, Chloride Level 102, Carbon Dioxide Level 24, Anion Gap 8, Blood Urea Nitrogen 20H, Creatinine 0.7, Estimat Glomerular Filtration Rate > 60, Glucose Level 268H, Calcium Level 8.6, Phosphorus Level 1.7L, Magnesium Level 1.8 Height (Feet): 5 Height (Inches): 7.00 Weight (Pounds): 124 General Appearance: lethargic, confused Respiratory/Chest: lungs clear Lula Aaron MD Oct 13, 2018 11:11
[2018-10-13] MEDS: Heparin 5000 units/ml inj SUBQ SCH ×2 (11:24→21:00)
--- NOTE | 2018-10-13 11:30 | Consultation ---
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
--- NOTE | 2018-10-13 11:45 | History and Physical Report ---
DATE OF ADMISSION: 10/11/2018 HISTORY OF PRESENT ILLNESS: The patient has a tracheostomy. He is admitted to the ICU. He has a trach for septic shock, initially was on pressors, leukocytosis, and acute renal failure with elevated troponin. The patient also has a tracheostomy. Nonverbal. Later on, in the course of the hospitalization, we found out that the patient comfort care, so I have informed all my consultants to honor the comfort care, so all the consultants to follow the comfort care and do quickly what the family wants, and I have asked the team and all the consultants to follow the pulse and wishes of the family, and we also informed the family as well to contact the family. The patient is nonverbal at this point. He is lethargic. PAST MEDICAL HISTORY: Renal failure, encephalopathy, respiratory failure, DNR, dehydration, iron deficiency anemia, history of C. diff, history of hyperlipidemia, and GERD. PAST SURGICAL HISTORY: Trach and PEG. ALLERGIES: No known allergies. MEDICATIONS: Protonix. FAMILY HISTORY: Unable to obtain. SOCIAL HISTORY: Unable to obtain. REVIEW OF SYSTEMS: Unable to obtain. PHYSICAL EXAMINATION: VITAL SIGNS: Temperature is not recorded, pulse is 85, and blood pressure 98/64. HEENT: PERRLA. NECK: Trach site is intact. CHEST: Clear to auscultation. CARDIOVASCULAR: Regular rate and rhythm. ABDOMEN: Soft. Positive bowel sounds. EXTREMITIES: No edema. NEUROLOGIC: The patient is lethargic. LABORATORY DATA: WBC of 13.8, hemoglobin 10.2, and platelets are 345. ASSESSMENT AND PLAN: Septic shock, leukocytosis, acute renal failure, elevated troponin, sepsis, and pneumonia. According to comfort care consulted. I have asked all my consultants to follow the comfort care measures and to follow the family's wish and I have asked the whole team to honor the family's wishes. Consultants are Dr. Lou, Dr. Piper, Dr. Bravo, and Dr. Estrada. Lula Aaron M.D. DR: JOSH JOB#: [id number] CC:
[2018-10-13 11:52] LABS: ALANINE AMINOTRANSFERASE 23 U/L (12-78); ALBUMIN 1.7 G/DL (3.4-5.0); ALKALINE PHOSPHATASE 98 U/L (46-116); ASPARTATE AMINO TRANSFERASE 38 U/L (15-37); BILIRUBIN,DIRECT < 0.1 MG/DL (0.0-0.3); BILIRUBIN,TOTAL 0.3 MG/DL (0.2-1.0)
--- NOTE | 2018-10-13 12:15 | NUR ---
NURSE NOTES: Vaso titrated down from 0.04 to 0.02. VSS. Will continue to monitor and continue to titrate down if patient remains stable.
--- NOTE | 2018-10-13 12:30 | NUR ---
NURSE NOTES: Patient observed bedside. Patient continues to be obtunded and in no acute distress. Patient is currently being monitored on the school bus monitor VSS. Patient currently has a tracheostomy with Shiley 6.0 with Aerosol oxygen at 8.0 L with 30% FiO2. Patient has Vital AF running at 50 ml/hr. Patient has a LFem running Vaso 0.02 and d5NS at 75 ml/hr. Patient is afebrile. Rectal tube is in place draining very pungent liquid stool to gravity. Patient has a conrad draining yellow urine to gravity. Safety measures are in place with bed locked in the lowest position HOB elevated at 30 degrees. Will continue to monitor and follow plan of care.
--- NOTE | 2018-10-13 12:50 | NUR ---
NURSE NOTES: Vaso is now OFF. Patient with VSS and not in any acute distress. Will continue to monitor for any hypotensive episodes.
[2018-10-13] MEDS ORDERED: Potassium Phosphate 30 MM in NS 275 ML IV ONE (13:00)
--- NOTE | 2018-10-13 14:58 | NUR ---
NURSE NOTES: Vaso restarted due to hypoTN. VS now 97/56. Will continue to monitor.
--- NOTE | 2018-10-13 16:10 | NUR ---
NURSE NOTES: Patient observed bedside to be obtunded and monitored on the director of cardiac rehabilitation VSS. Patient currently has a tracheostomy with Shiley 6.0 with Aerosol oxygen at 8.0 L with 30% FiO2. Patient has Vital AF running at 50 ml/hr. Patient has a LFem running Vaso 0.02 again with VSS and d5NS at 75 ml/hr. Rectal tube draining large amounts of liquid stool to gravity. Patient has a Castrejon draining yellow urine to gravity. Safety measures are in place with bed locked in the lowest position HOB elevated at 30 degrees. Will continue to monitor and follow plan of care
--- NOTE | 2018-10-13 17:10 | NUR ---
NURSE NOTES: Vaso once again titrated down to 0.02. VSS stable. Will keep at this dose. Patient is not in any acute distress. Will continue to monitor.
--- NOTE | 2018-10-13 17:15 | Surgery Progress Note ---
Surgery Progress Note Subjective Additional Comments in ICU. unchanged. Objective Last 24 Hour Vital Signs Date Time Temp Pulse Resp B/P (MAP) Pulse Ox O2 Delivery O2 Flow Rate FiO2 10/13/18 16:00 97.6 80 25 111/66 (81) 100 10/13/18 16:00 8.0 30 10/13/18 16:00 Trach Collar 10/13/18 16:00 80 10/13/18 15:00 82 28 89/59 (69) 100 10/13/18 14:00 93 28 78/47 (57) 100 10/13/18 13:00 86 25 100/55 (70) 100 10/13/18 12:44 100 Trach Collar 8.0 30 10/13/18 12:44 Trach Collar 8.0 30 10/13/18 12:30 76 26 97/61 (73) 100 10/13/18 12:00 71 10/13/18 12:00 98.2 71 28 108/67 (81) 100 10/13/18 12:00 8.0 30 10/13/18 12:00 Trach Collar 10/13/18 11:00 71 28 108/69 (82) 100 10/13/18 10:00 69 32 100/62 (75) 95 10/13/18 09:00 73 32 100/62 (75) 95 10/13/18 08:00 Trach Collar 10/13/18 08:00 72 10/13/18 08:00 8.0 30 10/13/18 08:00 98.0 72 32 103/62 (76) 100 10/13/18 07:00 70 31 98/61 (73) 100 10/13/18 06:33 Trach Collar 8.0 30 10/13/18 06:33 100 Trach Collar 8.0 30 10/13/18 06:00 72 19 97/63 (74) 100 10/13/18 05:00 77 28 125/65 (85) 100 10/13/18 04:00 8.0 30 10/13/18 04:00 73 10/13/18 04:00 98.1 78 29 93/64 (74) 100 10/13/18 04:00 Trach Collar 10/13/18 03:00 78 38 110/74 (86) 100 10/13/18 02:00 74 26 115/68 (84) 100 10/13/18 01:00 85 22 111/69 (83) 100 10/13/18 00:58 Trach Collar 8.0 30 10/13/18 00:58 100 Trach Collar 8.0 30 10/13/18 00:00 75 10/13/18 00:00 97.3 77 13 101/62 (75) 100 10/13/18 00:00 Trach Collar 10/12/18 23:00 78 25 105/69 (81) 100 10/12/18 22:00 77 18 83/47 (59) 100 10/12/18 21:30 78 24 81/54 (63) 100 10/12/18 21:00 79 24 95/58 (70) 100 10/12/18 20:30 78 21 97/62 (74) 100 10/12/18 20:00 77 10/12/18 20:00 T-piece 10/12/18 20:00 96.9 80 19 95/63 (74) 99 10/12/18 20:00 8.0 30 10/12/18 19:00 98 Trach Collar 8.0 30 10/12/18 19:00 Trach Collar 8.0 30 10/12/18 19:00 90 16 102/62 (75) 100 10/12/18 18:30 88 17 104/60 (75) 100 10/12/18 18:00 90 17 105/64 (78) 100 10/12/18 17:30 88 18 104/66 (79) 100 I&O Intake and Output 10/12/18 10/13/18 19:00 07:00 Intake Total 1506.923 ml 1711.56 ml Output Total 1360 ml 1020 ml Balance 146.923 ml 691.56 ml Intake Free Water 100 ml IV Total 1506.923 ml 1271.56 ml Tube Feeding 340 ml Output Urine Total 1360 ml 1020 ml Dressing: other Wound: other Drains: other Cardiovascular: other Respiratory: other Abdomen: other Extremities: other Laboratory Tests Test 10/12/18 20:05 10/13/18 04:00 Lactic Acid Level 2.20 mmol/L (0.4-2.0) H 1.80 mmol/L (0.4-2.0) White Blood Count 21.6 K/UL (4.8-10.8) H Red Blood Count 2.18 M/UL (4.70-6.10) L Hemoglobin 7.0 G/DL (14.2-18.0) L Hematocrit 20.4 % (42.0-52.0) L Mean Corpuscular Volume 94 FL (80-99) Mean Corpuscular Hemoglobin 32.0 PG (27.0-31.0) H Mean Corpuscular Hemoglobin Concent 34.1 G/DL (32.0-36.0) Red Cell Distribution Width 13.8 % (11.6-14.8) Platelet Count 174 K/UL (150-450) Mean Platelet Volume 5.9 FL (6.5-10.1) L Neutrophils (%) (Auto) % (45.0-75.0) Lymphocytes (%) (Auto) % (20.0-45.0) Monocytes (%) (Auto) % (1.0-10.0) Eosinophils (%) (Auto) % (0.0-3.0) Basophils (%) (Auto) % (0.0-2.0) Differential Total Cells Counted 100 Neutrophils % (Manual) 81 % (45-75) H Lymphocytes % (Manual) 8 % (20-45) L Monocytes % (Manual) 2 % (1-10) Eosinophils % (Manual) 0 % (0-3) Basophils % (Manual) 0 % (0-2) Band Neutrophils 9 % (0-8) H Platelet Estimate Adequate Platelet Morphology Normal Hypochromasia 1+ Sodium Level 134 MMOL/L (136-145) L Potassium Level 3.4 MMOL/L (3.5-5.1) L Chloride Level 102 MMOL/L (98-107) Carbon Dioxide Level 24 MMOL/L (21-32) Anion Gap 8 mmol/L (5-15) Blood Urea Nitrogen 20 mg/dL (7-18) H Creatinine 0.7 MG/DL (0.55-1.30) Estimat Glomerular Filtration Rate > 60 mL/min (>60) Glucose Level 268 MG/DL (74-106) H Calcium Level 8.6 MG/DL (8.5-10.1) Phosphorus Level 1.7 MG/DL (2.5-4.9) L Magnesium Level 1.8 MG/DL (1.8-2.4) Total Bilirubin 0.3 MG/DL (0.2-1.0) Direct Bilirubin < 0.1 MG/DL (0.0-0.3) Aspartate Amino Transf (AST/SGOT) 38 U/L (15-37) H Alanine Aminotransferase (ALT/SGPT) 23 U/L (12-78) Alkaline Phosphatase 98 U/L (46-116) Total Protein 6.2 G/DL (6.4-8.2) L Albumin 1.7 G/DL (3.4-5.0) L Plan Problems: (1) Severe sepsis (2) Multiple wounds Assessment & Plan: Pt presents with partial thickness pressure injuries to R and L gluteal clefts and an area at sacrococcygeal that is dark and indurated. Wounds present on admission. L buttocks partial thickness wound moist and viable .Edges adherent and flat .Non-blanchable erythema periwound. (L)3.9cm x (W)3.5cm. R gluteal cleft partial thickness pressure injury.Wound bed moist and viable.edges adhrent and flat .Non-blanchable erythema periwound (L)0.4cm x (W) 0.5cm. Bilat heels boggy but blanchable. Non-blanchable erythema noted to lateral R heel. Tx.Plan: Apply Moisture Barrier Paste to R and L buttocks .Cover with Optifoam drsg .Change daily and prn. Apply Cavilon Skin Barrier to R and L heels and Malleoli.Cover each site with Optifoam drsgs .Change every 7 days and PRN. APM/CLINT mattress. Reposition at least every 2hours or as tolerated. Off-load heels with pillow. Monroe Reynaga Oct 13, 2018 17:15
--- NOTE | 2018-10-13 19:00 | NUR ---
NURSE NOTES: Patient received from Luann Fleming RN. Patient is obtunded, eyes are closed, they dont open. Patient does decorticates when stimulated. Patient HR is 109/61, HR 104 ST, Temperature is 97.9F, SpO2 100%, RR 16. Patient has threach collar Shiley 6 that with O2 8L/30% FiO2, with aerosol therapy, atient does produce clear secretions. Patient s/p PEG las month running Vital AF at 50ml/hr. Patient does have Castrejon catheter, which is hanging below bladder and draining patently, yellow urine in color. Patient has Right Femoral TLC running D5NS at 50ml/hr, Vasopressin and tko line for Abx Patient noted to have sacral wound, rectal tube also noted.
--- NOTE | 2018-10-13 19:25 | NUR ---
HAND-OFF: Report given to KOLE Rankin. VSS and patient is not in any acute distress
--- NOTE | 2018-10-13 19:41 | Cardiology Progress Note ---
Assessment/Plan Assessment/Plan 1. Septic shock, due to B/L pneumonia, continue vasopressin, keep MAP >65 mmHg, consider IV fluid administration. IV ABx therapy. 2. Dyspnea due to B/L pneumonia, 2D echo revealing + wall motion abnormalities in the septal wall, ? ischemic CM, LVEF ~45%. 3. CVA with severe debilitation, consider ASA and statins. 4. Dysphagia, s/p PEG placement. Subjective Subjective Sinus rhythm at rate of 94. Non-verbal due to prior CVA. + Trach on the vent. Objective Last 24 Hour Vital Signs Date Time Temp Pulse Resp B/P (MAP) Pulse Ox O2 Delivery O2 Flow Rate FiO2 10/13/18 19:00 94 20 127/72 (90) 100 10/13/18 18:56 126 30 T-piece 8.0 30 10/13/18 18:55 97 T-piece 8.0 30 10/13/18 18:55 T-piece 8.0 30 10/13/18 18:00 116 25 131/67 (88) 100 10/13/18 17:00 88 25 140/68 (92) 100 10/13/18 16:00 97.6 80 25 111/66 (81) 100 10/13/18 16:00 8.0 30 10/13/18 16:00 Trach Collar 10/13/18 16:00 80 10/13/18 15:00 82 28 89/59 (69) 100 10/13/18 14:00 93 28 78/47 (57) 100 10/13/18 13:00 86 25 100/55 (70) 100 10/13/18 12:44 100 Trach Collar 8.0 30 10/13/18 12:44 Trach Collar 8.0 30 10/13/18 12:30 76 26 97/61 (73) 100 10/13/18 12:00 71 10/13/18 12:00 98.2 71 28 108/67 (81) 100 10/13/18 12:00 8.0 30 10/13/18 12:00 Trach Collar 10/13/18 11:00 71 28 108/69 (82) 100 10/13/18 10:00 69 32 100/62 (75) 95 10/13/18 09:00 73 32 100/62 (75) 95 10/13/18 08:00 Trach Collar 10/13/18 08:00 72 10/13/18 08:00 8.0 30 10/13/18 08:00 98.0 72 32 103/62 (76) 100 10/13/18 07:00 70 31 98/61 (73) 100 10/13/18 06:33 Trach Collar 8.0 30 10/13/18 06:33 100 Trach Collar 8.0 30 10/13/18 06:00 72 19 97/63 (74) 100 10/13/18 05:00 77 28 125/65 (85) 100 10/13/18 04:00 8.0 30 10/13/18 04:00 73 10/13/18 04:00 98.1 78 29 93/64 (74) 100 10/13/18 04:00 Trach Collar 10/13/18 03:00 78 38 110/74 (86) 100 10/13/18 02:00 74 26 115/68 (84) 100 10/13/18 01:00 85 22 111/69 (83) 100 10/13/18 00:58 Trach Collar 8.0 30 10/13/18 00:58 100 Trach Collar 8.0 30 10/13/18 00:00 75 10/13/18 00:00 97.3 77 13 101/62 (75) 100 10/13/18 00:00 Trach Collar 10/12/18 23:00 78 25 105/69 (81) 100 10/12/18 22:00 77 18 83/47 (59) 100 10/12/18 21:30 78 24 81/54 (63) 100 10/12/18 21:00 79 24 95/58 (70) 100 10/12/18 20:30 78 21 97/62 (74) 100 10/12/18 20:00 77 10/12/18 20:00 T-piece 10/12/18 20:00 96.9 80 19 95/63 (74) 99 10/12/18 20:00 8.0 30 Intake and Output 10/12/18 10/13/18 19:00 07:00 Intake Total 1506.923 ml 1711.56 ml Output Total 1360 ml 1020 ml Balance 146.923 ml 691.56 ml Intake Free Water 100 ml IV Total 1506.923 ml 1271.56 ml Tube Feeding 340 ml Output Urine Total 1360 ml 1020 ml 2D Echo: LVEF 45%, Septal wall hypokinesia, Grade I LVDD Laboratory Tests Test 10/12/18 20:05 10/13/18 04:00 Lactic Acid Level 2.20 mmol/L (0.4-2.0) H 1.80 mmol/L (0.4-2.0) White Blood Count 21.6 K/UL (4.8-10.8) H Red Blood Count 2.18 M/UL (4.70-6.10) L Hemoglobin 7.0 G/DL (14.2-18.0) L Hematocrit 20.4 % (42.0-52.0) L Mean Corpuscular Volume 94 FL (80-99) Mean Corpuscular Hemoglobin 32.0 PG (27.0-31.0) H Mean Corpuscular Hemoglobin Concent 34.1 G/DL (32.0-36.0) Red Cell Distribution Width 13.8 % (11.6-14.8) Platelet Count 174 K/UL (150-450) Mean Platelet Volume 5.9 FL (6.5-10.1) L Neutrophils (%) (Auto) % (45.0-75.0) Lymphocytes (%) (Auto) % (20.0-45.0) Monocytes (%) (Auto) % (1.0-10.0) Eosinophils (%) (Auto) % (0.0-3.0) Basophils (%) (Auto) % (0.0-2.0) Differential Total Cells Counted 100 Neutrophils % (Manual) 81 % (45-75) H Lymphocytes % (Manual) 8 % (20-45) L Monocytes % (Manual) 2 % (1-10) Eosinophils % (Manual) 0 % (0-3) Basophils % (Manual) 0 % (0-2) Band Neutrophils 9 % (0-8) H Platelet Estimate Adequate Platelet Morphology Normal Hypochromasia 1+ Sodium Level 134 MMOL/L (136-145) L Potassium Level 3.4 MMOL/L (3.5-5.1) L Chloride Level 102 MMOL/L (98-107) Carbon Dioxide Level 24 MMOL/L (21-32) Anion Gap 8 mmol/L (5-15) Blood Urea Nitrogen 20 mg/dL (7-18) H Creatinine 0.7 MG/DL (0.55-1.30) Estimat Glomerular Filtration Rate > 60 mL/min (>60) Glucose Level 268 MG/DL (74-106) H Calcium Level 8.6 MG/DL (8.5-10.1) Phosphorus Level 1.7 MG/DL (2.5-4.9) L Magnesium Level 1.8 MG/DL (1.8-2.4) Total Bilirubin 0.3 MG/DL (0.2-1.0) Direct Bilirubin < 0.1 MG/DL (0.0-0.3) Aspartate Amino Transf (AST/SGOT) 38 U/L (15-37) H Alanine Aminotransferase (ALT/SGPT) 23 U/L (12-78) Alkaline Phosphatase 98 U/L (46-116) Total Protein 6.2 G/DL (6.4-8.2) L Albumin 1.7 G/DL (3.4-5.0) L Microbiology Date/Time Source Procedure Growth Status 10/11/18 14:23 Blood Blood Culture - Preliminary NO GROWTH AFTER 24 HOURS Resulted 10/11/18 14:23 Blood Blood Culture - Preliminary NO GROWTH AFTER 24 HOURS Resulted 10/11/18 16:15 Nasal Nares MRSA Culture - Final NO METHICILLIN RESISTANT STAPH AUREUS... Complete 10/12/18 04:00 Stool Clostridium difficile Toxin Assay - Final Complete 10/11/18 15:00 Urine,Clean Catch Urine Culture - Final Escherichia Coli Complete 10/11/18 16:15 Rectum Received Objective HEENT: Atraumatic, bitemporal wasting, dry mucosal membranes, PERRLA NECK: cannot assess JVP, tracheostomy tube in place. HEART: Regular rate and rhythm. Tachycardic. No murmurs, gallops or rubs. Lungs: Bibasilar crackles. ABDOMEN: Soft, NT/ND, + BS. G-tube in place. EXTREMITIES: No edema, clubbing or cyanosis. NEUROLOGIC: Nonresponsive, vegetative state. Davy Estrada MD Oct 13, 2018 19:41
--- NOTE | 2018-10-13 20:00 | NUR ---
NURSE NOTES: Patient assessed and repositioned, suctioned and provided oral care, feeds ongoing, 20ml of residual. Patient Lines are secured and O2 supply assessed. Room set ups are safe and secured and appropriate.
--- NOTE | 2018-10-13 21:00 | NUR ---
NURSE NOTES: Lab at bedside drawing vanco trough.
--- NOTE | 2018-10-13 21:11 | NUR ---
CASE MANAGEMENT: REVIEW 10/13/2018 SI: SEPSIS . PNA . UTI T 98.3 HR 104 RR 23 B/P 110/70 SATS 100% ON 8L/T PIECE WBC 21.6 HGB 7 HCT 20.4 NA 134 K 3.4 BUN 29 GLU 268 IS: IVF @ 50 ml/HR ZOSYN IV Q8H SOLU CORTEF IV Q8H VENOFER IV QHS VANCO IV Q12H PEPCID IV Q12H LEVOPHED DRIP PER PROTOCOL ICU STATUS DCP: PATIENT IS FROM [facility]
[2018-10-13] MEDS: Iron Sucrose 100 MG in NS 55 ML IV SCH (21:27)
--- NOTE | 2018-10-13 21:45 | Consultation ---
DATE OF CONSULTATION: 10/12/2018 CARDIOLOGY CONSULTATION CONSULTING PHYSICIAN: Davy Estrada M.D. REFERRING PHYSICIAN: Lula Aaron M.D. REASON FOR CONSULTATION: Management of hypotension and tachycardia. HISTORY OF PRESENT ILLNESS: The patient is a very unfortunate 53-year-old gentleman with history of cerebrovascular accident, history of dysphagia status post G-tube placement, history of chronic respiratory failure status post tracheostomy tube placement who presents to the hospital with altered level of consciousness associated with respiratory distress and oxygen desaturation with oxygen level as low as 87%. At the time of arrival of the paramedics, blood pressure was also low, IV bolus was given. On arrival to emergency department, blood pressure was 92/58 mmHg and heart rate 147. A 12-lead electrocardiogram shown sinus tachycardia, rate of 150 with prolonged QT interval 461 millisecond. The patient was admitted to intensive care unit for further evaluation and management of possible septic shock and respiratory failure. Cardiology consultation was made at the request of Dr. Aaron for management of septic shock as well as tachycardia. PAST MEDICAL HISTORY: 1. CVA. 2. History of dysphagia, status post PEG placement. 3. History of ventilator-driven respiratory failure, status post tracheostomy tube placement. PAST SURGICAL HISTORY: 1. PEG placement. 2. Tracheostomy tube placement. MEDICATIONS: List of medication includes aspirin 81 mg G-tube daily, atorvastatin 80 mg G-tube at bedtime, heparin sulfate 5000 units subcutaneous q.12 h., pantoprazole 40 mg G-tube daily, and vitamin D3 5000 unit G-tube daily. ALLERGIES: No known drug allergies. SOCIAL HISTORY: Resident of [facility]. FAMILY HISTORY: No premature coronary artery disease in first-degree relatives. REVIEW OF SYSTEMS: Unfortunately the patient is nonverbal therefore 12-system review could not be obtained. PHYSICAL EXAMINATION: VITAL SIGNS: Blood pressure at time of arrival to the hospital 92/58 mmHg, pulse 147, respiratory rate 22, temperature 102.8 degrees Fahrenheit, O2 saturation 100% on mechanical ventilator with FiO2 of 80%. GENERAL: The patient is a very thin chronically ill gentleman, not communicating. HEENT: Atraumatic and normocephalic. Anicteric. Bitemporal wasting. Pupils are equal, round, and reactive to light and accommodation. There is dry mucosal membranes. NECK: Tracheostomy tube in place. Cannot assess JVP as it is attached to the ventilator with positive inspiratory pressure. CARDIOVASCULAR: Normal S1 and S2. Regular rate and rhythm. Tachycardic. Cannot appreciate any murmurs, gallops, or rubs. LUNGS: Bilateral crackles in the bases. ABDOMEN: Soft, nontender, and nondistended. No hepatosplenomegaly. Positive G-tube in place. EXTREMITIES: No evidence of edema, clubbing, or cyanosis. LABORATORY FINDINGS: WBC was 12.2, hemoglobin of 8.1, hematocrit of 23.8, and platelet count is 241. Sodium 136, potassium is 4.6, chloride 105, bicarbonate 22, BUN of 51, creatinine 1.4, glucose is 168. Hemoglobin A1c is 9. Calcium is 8.2. Troponin-I was 0.2 to 1. ProBNP was 595. INR is 1.3. Blood gas showed pH of 7.40, pCO2 of 30.9, pO2 of 74.8, and HCO2 of 19.1, saturation 92.9%. ASSESSMENT AND PLAN: The patient is a very unfortunate 53-year-old gentleman, seen in Cardiology consultation. 1. Septic shock in view of fever, presence of pneumonia in the right lower lobe as well as left lower lobe. 2. Leukocytosis, I would like to consider pressors, Levophed drip, had to keep the mean arterial pressure above 65 mmHg. The patient will be continue on IV antibiotic. ID and Pulmonary recommendations. 3. History of CVA with dysphagia. 4. Ventilatory-driven respiratory failure, status post tracheostomy tube placement. 5. Dysphagia, status post PEG placement. 6. Hypoxemia most likely due to bilateral lower zone pneumonia however associated heart failure could not be ruled out in phase of elevated beta-natriuretic peptide. I would like to obtain 2D echocardiography for assessment of the systolic and diastolic function. Chest x-ray does not show cardiomegaly. Further therapeutic and diagnostic decision will be based on the results of the echocardiography. A total amount of time spent in the [facility] intensive care unit exceeded 50 minutes. I would like to thank, Dr. Aaron, for allowing me to participate in the care of this patient. Davy Estrada M.D. DR: Malvin JOB#: [id number] CC:
[2018-10-13] MEDS: Vancomycin 1gm/D5W 275ml IVPB SCH ×2 (22:00)
--- NOTE | 2018-10-13 22:00 | NUR ---
NURSE NOTES: Patient repositioned, scheduled medication given, Vitals remains stable, remains afebrile 98.6F. Will continue to monitor.
[2018-10-14] VITALS (24 sets, daily range): BP systolic 99–130; BP diastolic 52–81
--- NOTE | 2018-10-14 | NUR ---
NURSE NOTES: Repositioned patient, suctioned and provided oral care. Patients Vitals are stable. Will continue to monitor.
--- NOTE | 2018-10-14 02:00 | NUR ---
NURSE NOTES: Repositioned patient, suctioned and provided oral care. Patients Vitals are stable. Will continue to monitor.
--- NOTE | 2018-10-14 04:00 | NUR ---
NURSE NOTES: Patient repositioned, cleaned and suctioned, rectal tube remains intact. Vitals remains stable, afebrile.
[2018-10-14 04:33] LABS: HEMATOCRIT 20.4 % (42.0-52.0); MEAN CORPUSCULAR VOLUME 94 FL (80-99); PLATELET COUNT 196 K/UL (150-450); RED BLOOD COUNT 2.18 M/UL (4.70-6.10); RED CELL DISTRIBUTION WIDTH 14.1 % (11.6-14.8); WHITE BLOOD COUNT 16.6 K/UL (4.8-10.8)
[2018-10-14 04:49] LABS: ALANINE AMINOTRANSFERASE 31 U/L (12-78); ALBUMIN 1.7 G/DL (3.4-5.0); ALBUMIN/GLOBULIN RATIO 0.4 (1.0-2.7); ALKALINE PHOSPHATASE 98 U/L (46-116); ANION GAP 11 mmol/L (5-15); ASPARTATE AMINO TRANSFERASE 27 U/L (15-37); BILIRUBIN,TOTAL 0.1 MG/DL (0.2-1.0); BLOOD UREA NITROGEN 16 mg/dL (7-18); CALCIUM 8.3 MG/DL (8.5-10.1); CARBON DIOXIDE 23 MMOL/L (21-32); CHLORIDE 105 MMOL/L (98-107); CREATININE 0.8 MG/DL (0.55-1.30); POTASSIUM 3.2 MMOL/L (3.5-5.1); SODIUM 139 MMOL/L (136-145)
[2018-10-14] MEDS: Zoysn 3.37gm in NS 100ML IVPB SCH ×3 (05:56→21:35)
[2018-10-14] MEDS: D5NS 1,000 ML IV SCH (05:56)
[2018-10-14] MEDS: Hydrocortisone 100mg Inj IV SCH ×3 (05:56→21:35)
--- NOTE | 2018-10-14 06:00 | NUR ---
NURSE NOTES: Repositioned, cleaned, Vitals stable, no new change.
--- NOTE | 2018-10-14 07:10 | NUR ---
NURSE NOTES: Report received from Chucho Steiner RN.Pt resting quietly in bed asleep noted no resp distress,on T-Peice 30% Fio2,no signs of pain or discomfort,SR on the monitor ,GTF Vital AF at 50 ml/hr ,no residual noted,with Rectal tube and Castrejon Cath in placed,IV site to RT Femoral TLC,D5NAS at 50 ml/hr,skin warm and dry ,SR up x2 HOB elevated,bed lock in lowest position will continue with plans of care.
--- NOTE | 2018-10-14 09:00 | NUR ---
NURSE NOTES: Pt stable no resp distress presented,oral/tracheal secretions suctioned to large amount of thick white secretions.
[2018-10-14] MEDS: Heparin 5000 units/ml inj SUBQ SCH ×2 (09:20→20:45)
[2018-10-14] MEDS: Vancomycin 1gm/D5W 275ml IVPB SCH ×2 (09:20)
--- NOTE | 2018-10-14 09:49 | Infectious Diseases Prog Note ---
Assessment/Plan Assessment/Plan IMPRESSION: Sepsis with septic shock. Urinary tract infection with E. coli pneumonia, acute renal failure, resolving lactic acidosis, resolving acute on chronic respiratory failure with hypoxemia, anemia, diabetes mellitus. Anemia Diarrhea, C. difficile negative P: discontinue Vancomycin , continue Zosyn Will f/u cultures Subjective ROS Limited/Unobtainable: Yes Cardiovascular: Reports: other - off of pressors Allergies: Coded Allergies: No Known Allergies (Unverified , 10/11/18) Objective Vital Signs Last 24 Hour Vital Signs Date Time Temp Pulse Resp B/P (MAP) Pulse Ox O2 Delivery O2 Flow Rate FiO2 10/14/18 07:35 T-piece 8.0 30 10/14/18 07:35 100 T-piece 8.0 30 10/14/18 07:34 100 20 T-piece 8.0 30 10/14/18 07:00 98 23 106/63 (77) 100 10/14/18 06:00 94 22 100/61 (74) 100 10/14/18 05:00 96 19 103/53 (70) 100 10/14/18 04:00 99.1 101 26 99/56 (70) 99 10/14/18 04:00 103 10/14/18 04:00 T-piece 10/14/18 04:00 8.0 30 10/14/18 03:00 102 19 103/54 (70) 100 10/14/18 02:00 110 22 104/52 (69) 100 10/14/18 01:24 T-piece 8.0 30 10/14/18 01:24 98 T-piece 8.0 30 10/14/18 01:00 105 16 115/62 (79) 100 10/14/18 00:00 T-piece 10/14/18 00:00 98.6 102 24 119/60 (79) 100 10/14/18 00:00 8.0 30 10/14/18 00:00 94 10/13/18 23:00 106 27 131/60 (83) 93 10/13/18 22:00 91 26 111/64 (80) 100 10/13/18 21:00 99 22 97/61 (73) 100 10/13/18 20:00 106 10/13/18 20:00 T-piece 10/13/18 20:00 98.3 104 23 110/70 (83) 100 10/13/18 20:00 8.0 30 10/13/18 19:00 94 20 127/72 (90) 100 10/13/18 18:56 126 30 T-piece 8.0 30 10/13/18 18:55 97 T-piece 8.0 30 10/13/18 18:55 T-piece 8.0 30 10/13/18 18:00 116 25 131/67 (88) 100 10/13/18 17:00 88 25 140/68 (92) 100 10/13/18 16:00 97.6 80 25 111/66 (81) 100 10/13/18 16:00 8.0 30 10/13/18 16:00 Trach Collar 10/13/18 16:00 80 10/13/18 15:00 82 28 89/59 (69) 100 10/13/18 14:00 93 28 78/47 (57) 100 10/13/18 13:00 86 25 100/55 (70) 100 10/13/18 12:44 100 Trach Collar 8.0 30 10/13/18 12:44 Trach Collar 8.0 30 10/13/18 12:30 76 26 97/61 (73) 100 10/13/18 12:00 71 10/13/18 12:00 98.2 71 28 108/67 (81) 100 10/13/18 12:00 8.0 30 10/13/18 12:00 Trach Collar 10/13/18 11:00 71 28 108/69 (82) 100 10/13/18 10:00 69 32 100/62 (75) 95 Height (Feet): 5 Height (Inches): 7.00 Weight (Pounds): 123 General Appearance: no acute distress HEENT: status post trach Respiratory/Chest: rhonchi - bilaterally, other - on T bar Cardiovascular: tachycardia Abdomen: soft, non tender, other - GT feeding Extremities: no edema Neurologic/Psychiatric: aphasia Microbiology Date/Time Source Procedure Growth Status 10/11/18 14:23 Blood Blood Culture - Preliminary NO GROWTH AFTER 48 HOURS Resulted 10/11/18 14:23 Blood Blood Culture - Preliminary NO GROWTH AFTER 48 HOURS Resulted 10/11/18 16:15 Nasal Nares MRSA Culture - Final NO METHICILLIN RESISTANT STAPH AUREUS... Complete 10/12/18 04:00 Stool Clostridium difficile Toxin Assay - Final Complete 10/11/18 15:00 Urine,Clean Catch Urine Culture - Final Escherichia Coli Complete 10/11/18 16:15 Rectum Received Laboratory Tests Test 10/13/18 19:55 10/14/18 04:00 Vancomycin Level Trough 8.3 ug/mL (5.0-12.0) White Blood Count 16.6 K/UL (4.8-10.8) H Red Blood Count 2.18 M/UL (4.70-6.10) L Hemoglobin 7.0 G/DL (14.2-18.0) L Hematocrit 20.4 % (42.0-52.0) L Mean Corpuscular Volume 94 FL (80-99) Mean Corpuscular Hemoglobin 32.0 PG (27.0-31.0) H Mean Corpuscular Hemoglobin Concent 34.2 G/DL (32.0-36.0) Red Cell Distribution Width 14.1 % (11.6-14.8) Platelet Count 196 K/UL (150-450) Mean Platelet Volume 6.3 FL (6.5-10.1) L Neutrophils (%) (Auto) % (45.0-75.0) Lymphocytes (%) (Auto) % (20.0-45.0) Monocytes (%) (Auto) % (1.0-10.0) Eosinophils (%) (Auto) % (0.0-3.0) Basophils (%) (Auto) % (0.0-2.0) Neutrophils % (Manual) Pending Lymphocytes % (Manual) Pending Platelet Estimate Pending Platelet Morphology Pending Sodium Level 139 MMOL/L (136-145) Potassium Level 3.2 MMOL/L (3.5-5.1) L Chloride Level 105 MMOL/L (98-107) Carbon Dioxide Level 23 MMOL/L (21-32) Anion Gap 11 mmol/L (5-15) Blood Urea Nitrogen 16 mg/dL (7-18) Creatinine 0.8 MG/DL (0.55-1.30) Estimat Glomerular Filtration Rate > 60 mL/min (>60) Glucose Level 293 MG/DL (74-106) H Calcium Level 8.3 MG/DL (8.5-10.1) L Total Bilirubin 0.1 MG/DL (0.2-1.0) L Aspartate Amino Transf (AST/SGOT) 27 U/L (15-37) Alanine Aminotransferase (ALT/SGPT) 31 U/L (12-78) Alkaline Phosphatase 98 U/L (46-116) Total Protein 6.0 G/DL (6.4-8.2) L Albumin 1.7 G/DL (3.4-5.0) L Globulin 4.3 g/dL Albumin/Globulin Ratio 0.4 (1.0-2.7) L Current Medications Medications (Trade) Dose Ordered Sig/Last Route PRN Reason Start Time Stop Time Status Last Admin Dose Admin Acetaminophen (Tylenol) 650 mg Q4H PRN RECTAL Prn Headache/Temp > 101 10/11/18 19:00 11/10/18 18:59 Albuterol/ Ipratropium (Albuterol/ Ipratropium) 3 ml Q4H PRN HHN Shortness of Breath 10/11/18 19:00 10/16/18 18:59 Dextrose/Sodium Chloride 1,000 ml @ 50 mls/hr Q20H IV 10/13/18 09:41 11/10/18 09:40 10/14/18 05:56 Famotidine (Pepcid I.v.) 20 mg Q12HR IVP 10/13/18 21:00 11/12/18 20:59 10/14/18 09:16 Heparin Sodium (Porcine) (Heparin 5000 units/ml) 5,000 units EVERY 12 HOURS SUBQ 10/11/18 21:00 11/10/18 20:59 10/14/18 09:20 Hydrocortisone (Solu-CORTEF) 75 mg EVERY 8 HOURS IV 10/13/18 14:00 11/10/18 21:59 10/14/18 05:56 Iron Sucrose 100 mg/Sodium Chloride 60 ml @ 240 mls/hr BEDTIME IV 10/12/18 21:00 10/14/18 21:14 10/13/18 21:27 Midazolam HCl (Versed 2mg/2ml vial) 2 mg Q4H PRN IVP Agitation 10/11/18 19:00 11/10/18 18:59 10/14/18 03:20 Norepinephrine Bitartrate 8 mg/ Dextrose 508 ml @ 0 mls/hr Q24H IV 10/11/18 19:00 11/10/18 18:59 10/11/18 22:00 Piperacillin Sod/ Tazobactam Sod 3.375 gm/Sodium Chloride 110 ml @ 27.5 mls/hr EVERY 8 HOURS IVPB 10/11/18 22:00 10/16/18 21:59 10/14/18 05:56 Vancomycin HCl (Vanco rx to dose) 1 ea DAILY PRN MISC Per rx protocol 10/11/18 19:00 11/10/18 18:59 Vancomycin HCl 1 gm/Dextrose 275 ml @ 183.708 mls/hr Q12H IVPB 10/13/18 22:00 10/18/18 21:59 10/14/18 09:20 Vasopressin 100 units/Sodium Chloride 100 ml @ 2.4 mls/hr Q24H IV 10/12/18 20:00 11/10/18 19:59 10/13/18 07:00 Lucas Bravo MD Oct 14, 2018 09:48
[2018-10-14] MEDS ORDERED: Potassium Phosphate 30 MM in NS 275 ML IV SCH (11:00)
--- NOTE | 2018-10-14 12:25 | General Progress Note ---
Assessment/Plan Problem List: (1) Cerebral infarction ICD Codes: I63.9 - Cerebral infarction, unspecified SNOMED: 639511999 (2) Renal failure ICD Codes: N19 - Unspecified kidney failure SNOMED: 40409257 Qualifiers: Qualified Codes: N17.9 - Acute kidney failure, unspecified (3) Encephalopathy ICD Codes: G93.40 - Encephalopathy, unspecified SNOMED: 52595379 (4) Lactic acid acidosis ICD Codes: E87.2 - Acidosis SNOMED: 41998393 (5) Tracheostomy care ICD Codes: Z43.0 - Encounter for attention to tracheostomy SNOMED: 242738313 (6) LUZ MARIA (acute kidney injury) ICD Codes: N17.9 - Acute kidney failure, unspecified SNOMED: 37970604 (7) DNAR (do not attempt resuscitation) ICD Codes: Z66 - Do not resuscitate SNOMED: 107104737 (8) Dehydration ICD Codes: E86.0 - Dehydration SNOMED: 23428459 (9) Iron deficiency ICD Codes: E61.1 - Iron deficiency SNOMED: 36250775 Assessment/Plan i have informed all the consultants to honor dpoa wishes and do comfort care only sepsis very congested have reemphasized to team to go w dopa decsion and do comfort care and honor dpoa request very congested resp failure trach malnutition very poor prognosis i Subjective ROS Limited/Unobtainable: Yes Allergies: Coded Allergies: No Known Allergies (Unverified , 10/11/18) Objective Last 24 Hour Vital Signs Date Time Temp Pulse Resp B/P (MAP) Pulse Ox O2 Delivery O2 Flow Rate FiO2 10/14/18 10:03 100 17 110/81 (91) 100 10/14/18 09:00 96 18 106/60 (75) 100 10/14/18 08:00 106 10/14/18 08:00 T-piece 10/14/18 08:00 8.0 30 10/14/18 08:00 98.6 97 23 108/60 (76) 98 10/14/18 07:35 T-piece 8.0 30 10/14/18 07:35 100 T-piece 8.0 30 10/14/18 07:34 100 20 T-piece 8.0 30 10/14/18 07:00 98 23 106/63 (77) 100 10/14/18 06:00 94 22 100/61 (74) 100 10/14/18 05:00 96 19 103/53 (70) 100 10/14/18 04:00 99.1 101 26 99/56 (70) 99 10/14/18 04:00 103 10/14/18 04:00 T-piece 10/14/18 04:00 8.0 30 10/14/18 03:00 102 19 103/54 (70) 100 10/14/18 02:00 110 22 104/52 (69) 100 10/14/18 01:24 T-piece 8.0 30 10/14/18 01:24 98 T-piece 8.0 30 10/14/18 01:00 105 16 115/62 (79) 100 10/14/18 00:00 T-piece 10/14/18 00:00 98.6 102 24 119/60 (79) 100 10/14/18 00:00 8.0 30 10/14/18 00:00 94 10/13/18 23:00 106 27 131/60 (83) 93 10/13/18 22:00 91 26 111/64 (80) 100 10/13/18 21:00 99 22 97/61 (73) 100 10/13/18 20:00 106 10/13/18 20:00 T-piece 10/13/18 20:00 98.3 104 23 110/70 (83) 100 10/13/18 20:00 8.0 30 10/13/18 19:00 94 20 127/72 (90) 100 10/13/18 18:56 126 30 T-piece 8.0 30 10/13/18 18:55 97 T-piece 8.0 30 10/13/18 18:55 T-piece 8.0 30 10/13/18 18:00 116 25 131/67 (88) 100 10/13/18 17:00 88 25 140/68 (92) 100 10/13/18 16:00 97.6 80 25 111/66 (81) 100 10/13/18 16:00 8.0 30 10/13/18 16:00 Trach Collar 10/13/18 16:00 80 10/13/18 15:00 82 28 89/59 (69) 100 10/13/18 14:00 93 28 78/47 (57) 100 10/13/18 13:00 86 25 100/55 (70) 100 10/13/18 12:44 100 Trach Collar 8.0 30 10/13/18 12:44 Trach Collar 8.0 30 10/13/18 12:30 76 26 97/61 (73) 100 Intake and Output 10/13/18 10/14/18 19:00 07:00 Intake Total 2271.86 ml 1930.9 ml Output Total 425 ml 655 ml Balance 1846.86 ml 1275.9 ml Intake Free Water 200 ml IV Total 1621.86 ml 1130.9 ml Tube Feeding 600 ml 600 ml Other 50 ml Output Urine Total 425 ml 655 ml Laboratory Tests 10/13/18 19:55: Vancomycin Level Trough 8.3 10/14/18 04:00: White Blood Count 16.6H, Red Blood Count 2.18L, Hemoglobin 7.0L, Hematocrit 20.4L, Mean Corpuscular Volume 94, Mean Corpuscular Hemoglobin 32.0H, Mean Corpuscular Hemoglobin Concent 34.2, Red Cell Distribution Width 14.1, Platelet Count 196, Mean Platelet Volume 6.3L, Neutrophils (%) (Auto) , Lymphocytes (%) ( Auto) , Monocytes (%) (Auto) , Eosinophils (%) (Auto) , Basophils (%) (Auto) , Differential Total Cells Counted 100, Neutrophils % (Manual) 90H, Lymphocytes % (Manual) 2L, Monocytes % (Manual) 3, Eosinophils % (Manual) 0, Basophils % ( Manual) 0, Band Neutrophils 5, Platelet Estimate Adequate, Platelet Morphology Normal, Anisocytosis 1+, Grecia Cells 1+, Sodium Level 139, Potassium Level 3.2L, Chloride Level 105, Carbon Dioxide Level 23, Anion Gap 11, Blood Urea Nitrogen 16, Creatinine 0.8, Estimat Glomerular Filtration Rate > 60, Glucose Level 293H , Calcium Level 8.3L, Total Bilirubin 0.1L, Aspartate Amino Transf (AST/SGOT) 27 , Alanine Aminotransferase (ALT/SGPT) 31, Alkaline Phosphatase 98, Total Protein 6.0L, Albumin 1.7L, Globulin 4.3, Albumin/Globulin Ratio 0.4L Height (Feet): 5 Height (Inches): 7.00 Weight (Pounds): 123 General Appearance: lethargic, confused Respiratory/Chest: rhonchi - bilaterally Lula Aaron MD Oct 14, 2018 12:25
--- NOTE | 2018-10-14 13:00 | NUR ---
NURSE NOTES: Dr Lou at bedside, informed re low H/H,7.0/20.4,no blood transfusion ordered , Hg should be < 7,pt can be downgraded to KATLYN .
--- NOTE | 2018-10-14 13:08 | General Progress Note ---
Assessment/Plan Problem List: (1) Gastrostomy tube dependent ICD Codes: Z93.1 - Gastrostomy status SNOMED: 988196845, 232969331 (2) Anemia ICD Codes: D64.9 - Anemia, unspecified SNOMED: 294901465 (3) Iron deficiency ICD Codes: E61.1 - Iron deficiency SNOMED: 68488837 (4) Feeding by G-tube ICD Codes: Z93.1 - Gastrostomy status SNOMED: 270697288, 988186070, 807856212 (5) Tracheostomy care ICD Codes: Z43.0 - Encounter for attention to tracheostomy SNOMED: 900579505 (6) Pneumonia ICD Codes: J18.9 - Pneumonia, unspecified organism SNOMED: 429741298 Qualifiers: Qualified Codes: J18.9 - Pneumonia, unspecified organism Assessment/Plan Anemia workup reviewed. Iron deficiency. OB stool negative. G-tube dependent Rectal tube present Cdiff negative G-tube feeding per RD to goal Reglan for GI motility if needed monitor H&H, as needed transfusions Antibiotics venofer No plans for GI procedures unless urgent Follow labs Subjective ROS Limited/Unobtainable: No Allergies: Coded Allergies: No Known Allergies (Unverified , 10/11/18) Objective Last 24 Hour Vital Signs Date Time Temp Pulse Resp B/P (MAP) Pulse Ox O2 Delivery O2 Flow Rate FiO2 10/14/18 12:00 8.0 30 10/14/18 12:00 94 10/14/18 12:00 T-piece 10/14/18 12:00 98.5 101 16 130/70 (90) 100 10/14/18 11:00 97 22 109/61 (77) 97 10/14/18 10:03 100 17 110/81 (91) 100 10/14/18 09:00 96 18 106/60 (75) 100 10/14/18 08:00 106 10/14/18 08:00 T-piece 10/14/18 08:00 8.0 30 10/14/18 08:00 98.6 97 23 108/60 (76) 98 10/14/18 07:35 T-piece 8.0 30 10/14/18 07:35 100 T-piece 8.0 30 10/14/18 07:34 100 20 T-piece 8.0 30 10/14/18 07:00 98 23 106/63 (77) 100 10/14/18 06:00 94 22 100/61 (74) 100 10/14/18 05:00 96 19 103/53 (70) 100 10/14/18 04:00 99.1 101 26 99/56 (70) 99 10/14/18 04:00 103 10/14/18 04:00 T-piece 10/14/18 04:00 8.0 30 10/14/18 03:00 102 19 103/54 (70) 100 10/14/18 02:00 110 22 104/52 (69) 100 10/14/18 01:24 T-piece 8.0 30 10/14/18 01:24 98 T-piece 8.0 30 10/14/18 01:00 105 16 115/62 (79) 100 10/14/18 00:00 T-piece 10/14/18 00:00 98.6 102 24 119/60 (79) 100 10/14/18 00:00 8.0 30 10/14/18 00:00 94 10/13/18 23:00 106 27 131/60 (83) 93 10/13/18 22:00 91 26 111/64 (80) 100 10/13/18 21:00 99 22 97/61 (73) 100 10/13/18 20:00 106 10/13/18 20:00 T-piece 10/13/18 20:00 98.3 104 23 110/70 (83) 100 10/13/18 20:00 8.0 30 10/13/18 19:00 94 20 127/72 (90) 100 10/13/18 18:56 126 30 T-piece 8.0 30 10/13/18 18:55 97 T-piece 8.0 30 10/13/18 18:55 T-piece 8.0 30 10/13/18 18:00 116 25 131/67 (88) 100 10/13/18 17:00 88 25 140/68 (92) 100 10/13/18 16:00 97.6 80 25 111/66 (81) 100 10/13/18 16:00 8.0 30 10/13/18 16:00 Trach Collar 10/13/18 16:00 80 10/13/18 15:00 82 28 89/59 (69) 100 10/13/18 14:00 93 28 78/47 (57) 100 Intake and Output 10/13/18 10/14/18 18:59 06:59 Intake Total 2328.16 ml 1904.6 ml Output Total 435 ml 645 ml Balance 1893.16 ml 1259.6 ml Intake Free Water 200 ml IV Total 1698.16 ml 1104.6 ml Tube Feeding 580 ml 600 ml Other 50 ml Output Urine Total 435 ml 645 ml Laboratory Tests 10/13/18 19:55: Vancomycin Level Trough 8.3 10/14/18 04:00: White Blood Count 16.6H, Red Blood Count 2.18L, Hemoglobin 7.0L, Hematocrit 20.4L, Mean Corpuscular Volume 94, Mean Corpuscular Hemoglobin 32.0H, Mean Corpuscular Hemoglobin Concent 34.2, Red Cell Distribution Width 14.1, Platelet Count 196, Mean Platelet Volume 6.3L, Neutrophils (%) (Auto) , Lymphocytes (%) ( Auto) , Monocytes (%) (Auto) , Eosinophils (%) (Auto) , Basophils (%) (Auto) , Differential Total Cells Counted 100, Neutrophils % (Manual) 90H, Lymphocytes % (Manual) 2L, Monocytes % (Manual) 3, Eosinophils % (Manual) 0, Basophils % ( Manual) 0, Band Neutrophils 5, Platelet Estimate Adequate, Platelet Morphology Normal, Anisocytosis 1+, Outlook Cells 1+, Sodium Level 139, Potassium Level 3.2L, Chloride Level 105, Carbon Dioxide Level 23, Anion Gap 11, Blood Urea Nitrogen 16, Creatinine 0.8, Estimat Glomerular Filtration Rate > 60, Glucose Level 293H , Calcium Level 8.3L, Total Bilirubin 0.1L, Aspartate Amino Transf (AST/SGOT) 27 , Alanine Aminotransferase (ALT/SGPT) 31, Alkaline Phosphatase 98, Total Protein 6.0L, Albumin 1.7L, Globulin 4.3, Albumin/Globulin Ratio 0.4L Height (Feet): 5 Height (Inches): 7.00 Weight (Pounds): 123 General Appearance: lethargic EENT: normal ENT inspection Neck: supple Cardiovascular: tachycardia Respiratory/Chest: decreased breath sounds Abdomen: normal bowel sounds, non tender, soft Extremities: non-tender Gerson Dixon MD Oct 14, 2018 13:08
--- NOTE | 2018-10-14 13:47 | Pulmonolgy Critical Care Note ---
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 Respiratory: monitor respiratory rate, other - HHN's, NAC Cardiac: stop pressors, continue to monitor HR/BP, other - Dec HC to 50 IV TID Renal: keep IV fluid, check electrolytes Infectious Disease: continue antibiotics - Zosyn per ID Gastrointestinal: continue feedings/current rate, other Endocrine: monitor blood sugar Hematologic: monitor H/H - transfuse PRN Hb < 7 Prophylaxis: Protonix, Heparin Disposition: transfer to - [facility] Time Spent (Minutes): 30 Notes Reviewed: 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 heater helper, cardio, ID, GI Discussed with: nurses, consultants, family member, other - DNAR/DNI, continue current level of care until family makes a final decision Critical Care - Objective Last 24 Hour Vital Signs Date Time Temp Pulse Resp B/P (MAP) Pulse Ox O2 Delivery O2 Flow Rate FiO2 10/14/18 12:00 8.0 30 10/14/18 12:00 94 10/14/18 12:00 T-piece 10/14/18 12:00 98.5 101 16 130/70 (90) 100 10/14/18 11:00 97 22 109/61 (77) 97 10/14/18 10:03 100 17 110/81 (91) 100 10/14/18 09:00 96 18 106/60 (75) 100 10/14/18 08:00 106 10/14/18 08:00 T-piece 10/14/18 08:00 8.0 30 10/14/18 08:00 98.6 97 23 108/60 (76) 98 10/14/18 07:35 T-piece 8.0 30 10/14/18 07:35 100 T-piece 8.0 30 10/14/18 07:34 100 20 T-piece 8.0 30 10/14/18 07:00 98 23 106/63 (77) 100 10/14/18 06:00 94 22 100/61 (74) 100 10/14/18 05:00 96 19 103/53 (70) 100 10/14/18 04:00 99.1 101 26 99/56 (70) 99 10/14/18 04:00 103 10/14/18 04:00 T-piece 10/14/18 04:00 8.0 30 10/14/18 03:00 102 19 103/54 (70) 100 10/14/18 02:00 110 22 104/52 (69) 100 10/14/18 01:24 T-piece 8.0 30 10/14/18 01:24 98 T-piece 8.0 30 10/14/18 01:00 105 16 115/62 (79) 100 10/14/18 00:00 T-piece 10/14/18 00:00 98.6 102 24 119/60 (79) 100 10/14/18 00:00 8.0 30 10/14/18 00:00 94 10/13/18 23:00 106 27 131/60 (83) 93 10/13/18 22:00 91 26 111/64 (80) 100 10/13/18 21:00 99 22 97/61 (73) 100 10/13/18 20:00 106 10/13/18 20:00 T-piece 10/13/18 20:00 98.3 104 23 110/70 (83) 100 10/13/18 20:00 8.0 30 10/13/18 19:00 94 20 127/72 (90) 100 10/13/18 18:56 126 30 T-piece 8.0 30 10/13/18 18:55 97 T-piece 8.0 30 10/13/18 18:55 T-piece 8.0 30 10/13/18 18:00 116 25 131/67 (88) 100 10/13/18 17:00 88 25 140/68 (92) 100 10/13/18 16:00 97.6 80 25 111/66 (81) 100 10/13/18 16:00 8.0 30 10/13/18 16:00 Trach Collar 10/13/18 16:00 80 10/13/18 15:00 82 28 89/59 (69) 100 10/13/18 14:00 93 28 78/47 (57) 100 Status: obtunded Condition: improving, other - TC HEENT: atraumatic Lungs: rhonchi Heart: HR/BP stable Abdomen: soft, non-tender, active bowel sounds Extremities: no C/C/E Decubiti: location - sacral, stage - 2 Micro: Microbiology Date/Time Source Procedure Growth Status 10/11/18 14:23 Blood Blood Culture - Preliminary NO GROWTH AFTER 48 HOURS Resulted 10/11/18 14:23 Blood Blood Culture - Preliminary NO GROWTH AFTER 48 HOURS Resulted 10/11/18 16:15 Nasal Nares MRSA Culture - Final NO METHICILLIN RESISTANT STAPH AUREUS... Complete 10/12/18 04:00 Stool Clostridium difficile Toxin Assay - Final Complete 10/11/18 15:00 Urine,Clean Catch Urine Culture - Final Escherichia Coli Complete 10/11/18 16:15 Rectum VRE Culture - Final Enterococcus Faecalis - Vre Enterococcus Faecium - Vre Complete Blood Sugars: BS controlled Critical Care - Subjective ROS Limited/Unobtainable: Yes ICU Day: 4 Intubation Day: TC Interval Events: On TC off pressors no events Condition: stable IV Access: central - R fem CVC EKG Rhythm: Sinus Rhythm - -ST FI02: 30 Vent Support Breath Rate: 16 Vent Support Mode: CPAP Vent Tidal Volume: 450 Sputum Amount: Small PEEP: 5.0 PIP: 15 Secretions: white thick mod secretions Fluids: D5NS@50 Drips: Off Tube Feeding Amount: 50 I&O: Intake and Output 10/13/18 10/14/18 19:00 07:00 Intake Total 2271.86 ml 1930.9 ml Output Total 425 ml 655 ml Balance 1846.86 ml 1275.9 ml Intake Free Water 200 ml IV Total 1621.86 ml 1130.9 ml Tube Feeding 600 ml 600 ml Other 50 ml Output Urine Total 425 ml 655 ml Subjective: ISSAC Labs: Laboratory Tests Test 10/13/18 19:55 10/14/18 04:00 Vancomycin Level Trough 8.3 ug/mL (5.0-12.0) White Blood Count 16.6 K/UL (4.8-10.8) H Red Blood Count 2.18 M/UL (4.70-6.10) L Hemoglobin 7.0 G/DL (14.2-18.0) L Hematocrit 20.4 % (42.0-52.0) L Mean Corpuscular Volume 94 FL (80-99) Mean Corpuscular Hemoglobin 32.0 PG (27.0-31.0) H Mean Corpuscular Hemoglobin Concent 34.2 G/DL (32.0-36.0) Red Cell Distribution Width 14.1 % (11.6-14.8) Platelet Count 196 K/UL (150-450) Mean Platelet Volume 6.3 FL (6.5-10.1) L Neutrophils (%) (Auto) % (45.0-75.0) Lymphocytes (%) (Auto) % (20.0-45.0) Monocytes (%) (Auto) % (1.0-10.0) Eosinophils (%) (Auto) % (0.0-3.0) Basophils (%) (Auto) % (0.0-2.0) Differential Total Cells Counted 100 Neutrophils % (Manual) 90 % (45-75) H Lymphocytes % (Manual) 2 % (20-45) L Monocytes % (Manual) 3 % (1-10) Eosinophils % (Manual) 0 % (0-3) Basophils % (Manual) 0 % (0-2) Band Neutrophils 5 % (0-8) Platelet Estimate Adequate Platelet Morphology Normal Anisocytosis 1+ Warren Cells 1+ Sodium Level 139 MMOL/L (136-145) Potassium Level 3.2 MMOL/L (3.5-5.1) L Chloride Level 105 MMOL/L (98-107) Carbon Dioxide Level 23 MMOL/L (21-32) Anion Gap 11 mmol/L (5-15) Blood Urea Nitrogen 16 mg/dL (7-18) Creatinine 0.8 MG/DL (0.55-1.30) Estimat Glomerular Filtration Rate > 60 mL/min (>60) Glucose Level 293 MG/DL (74-106) H Calcium Level 8.3 MG/DL (8.5-10.1) L Total Bilirubin 0.1 MG/DL (0.2-1.0) L Aspartate Amino Transf (AST/SGOT) 27 U/L (15-37) Alanine Aminotransferase (ALT/SGPT) 31 U/L (12-78) Alkaline Phosphatase 98 U/L (46-116) Total Protein 6.0 G/DL (6.4-8.2) L Albumin 1.7 G/DL (3.4-5.0) L Globulin 4.3 g/dL Albumin/Globulin Ratio 0.4 (1.0-2.7) L Jordy Lou MD Oct 14, 2018 13:47
--- NOTE | 2018-10-14 14:37 | Surgery Progress Note ---
Surgery Progress Note Subjective Additional Comments leukocytosis resolving. labs noted. ill appearing in ICU Objective Last 24 Hour Vital Signs Date Time Temp Pulse Resp B/P (MAP) Pulse Ox O2 Delivery O2 Flow Rate FiO2 10/14/18 13:24 100 T-piece 8.0 30 10/14/18 13:24 T-piece 8.0 30 10/14/18 13:00 98 20 115/64 (81) 100 10/14/18 12:00 8.0 30 10/14/18 12:00 94 10/14/18 12:00 T-piece 10/14/18 12:00 98.5 101 16 130/70 (90) 100 10/14/18 11:00 97 22 109/61 (77) 97 10/14/18 10:03 100 17 110/81 (91) 100 10/14/18 09:00 96 18 106/60 (75) 100 10/14/18 08:00 106 10/14/18 08:00 T-piece 10/14/18 08:00 8.0 30 10/14/18 08:00 98.6 97 23 108/60 (76) 98 10/14/18 07:35 T-piece 8.0 30 10/14/18 07:35 100 T-piece 8.0 30 10/14/18 07:34 100 20 T-piece 8.0 30 10/14/18 07:00 98 23 106/63 (77) 100 10/14/18 06:00 94 22 100/61 (74) 100 10/14/18 05:00 96 19 103/53 (70) 100 10/14/18 04:00 99.1 101 26 99/56 (70) 99 10/14/18 04:00 103 10/14/18 04:00 T-piece 10/14/18 04:00 8.0 30 10/14/18 03:00 102 19 103/54 (70) 100 10/14/18 02:00 110 22 104/52 (69) 100 10/14/18 01:24 T-piece 8.0 30 10/14/18 01:24 98 T-piece 8.0 30 10/14/18 01:00 105 16 115/62 (79) 100 10/14/18 00:00 T-piece 10/14/18 00:00 98.6 102 24 119/60 (79) 100 10/14/18 00:00 8.0 30 10/14/18 00:00 94 10/13/18 23:00 106 27 131/60 (83) 93 10/13/18 22:00 91 26 111/64 (80) 100 10/13/18 21:00 99 22 97/61 (73) 100 10/13/18 20:00 106 10/13/18 20:00 T-piece 10/13/18 20:00 98.3 104 23 110/70 (83) 100 10/13/18 20:00 8.0 30 10/13/18 19:00 94 20 127/72 (90) 100 10/13/18 18:56 126 30 T-piece 8.0 30 10/13/18 18:55 97 T-piece 8.0 30 10/13/18 18:55 T-piece 8.0 30 10/13/18 18:00 116 25 131/67 (88) 100 10/13/18 17:00 88 25 140/68 (92) 100 10/13/18 16:00 97.6 80 25 111/66 (81) 100 10/13/18 16:00 8.0 30 10/13/18 16:00 Trach Collar 10/13/18 16:00 80 10/13/18 15:00 82 28 89/59 (69) 100 I&O Intake and Output 10/13/18 10/14/18 19:00 07:00 Intake Total 2271.86 ml 1930.9 ml Output Total 425 ml 655 ml Balance 1846.86 ml 1275.9 ml Intake Free Water 200 ml IV Total 1621.86 ml 1130.9 ml Tube Feeding 600 ml 600 ml Other 50 ml Output Urine Total 425 ml 655 ml Dressing: dry Wound: other Drains: other Cardiovascular: RSR Respiratory: clear Abdomen: soft, non-distended Extremities: other Laboratory Tests Test 10/13/18 19:55 10/14/18 04:00 Vancomycin Level Trough 8.3 ug/mL (5.0-12.0) White Blood Count 16.6 K/UL (4.8-10.8) H Red Blood Count 2.18 M/UL (4.70-6.10) L Hemoglobin 7.0 G/DL (14.2-18.0) L Hematocrit 20.4 % (42.0-52.0) L Mean Corpuscular Volume 94 FL (80-99) Mean Corpuscular Hemoglobin 32.0 PG (27.0-31.0) H Mean Corpuscular Hemoglobin Concent 34.2 G/DL (32.0-36.0) Red Cell Distribution Width 14.1 % (11.6-14.8) Platelet Count 196 K/UL (150-450) Mean Platelet Volume 6.3 FL (6.5-10.1) L Neutrophils (%) (Auto) % (45.0-75.0) Lymphocytes (%) (Auto) % (20.0-45.0) Monocytes (%) (Auto) % (1.0-10.0) Eosinophils (%) (Auto) % (0.0-3.0) Basophils (%) (Auto) % (0.0-2.0) Differential Total Cells Counted 100 Neutrophils % (Manual) 90 % (45-75) H Lymphocytes % (Manual) 2 % (20-45) L Monocytes % (Manual) 3 % (1-10) Eosinophils % (Manual) 0 % (0-3) Basophils % (Manual) 0 % (0-2) Band Neutrophils 5 % (0-8) Platelet Estimate Adequate Platelet Morphology Normal Anisocytosis 1+ Gordon Cells 1+ Sodium Level 139 MMOL/L (136-145) Potassium Level 3.2 MMOL/L (3.5-5.1) L Chloride Level 105 MMOL/L (98-107) Carbon Dioxide Level 23 MMOL/L (21-32) Anion Gap 11 mmol/L (5-15) Blood Urea Nitrogen 16 mg/dL (7-18) Creatinine 0.8 MG/DL (0.55-1.30) Estimat Glomerular Filtration Rate > 60 mL/min (>60) Glucose Level 293 MG/DL (74-106) H Calcium Level 8.3 MG/DL (8.5-10.1) L Total Bilirubin 0.1 MG/DL (0.2-1.0) L Aspartate Amino Transf (AST/SGOT) 27 U/L (15-37) Alanine Aminotransferase (ALT/SGPT) 31 U/L (12-78) Alkaline Phosphatase 98 U/L (46-116) Total Protein 6.0 G/DL (6.4-8.2) L Albumin 1.7 G/DL (3.4-5.0) L Globulin 4.3 g/dL Albumin/Globulin Ratio 0.4 (1.0-2.7) L Plan Problems: (1) Severe sepsis Assessment & Plan: leukocytosis resolving labs noted still uncontrolled glucose uop dvt ppx (2) Multiple wounds Assessment & Plan: Pt presents with partial thickness pressure injuries to R and L gluteal clefts and an area at sacrococcygeal that is dark and indurated. Wounds present on admission. L buttocks partial thickness wound moist and viable .Edges adherent and flat .Non-blanchable erythema periwound. (L)3.9cm x (W)3.5cm. R gluteal cleft partial thickness pressure injury.Wound bed moist and viable.edges adhrent and flat .Non-blanchable erythema periwound (L)0.4cm x (W) 0.5cm. Bilat heels boggy but blanchable. Non-blanchable erythema noted to lateral R heel. Tx.Plan: Apply Moisture Barrier Paste to R and L buttocks .Cover with Optifoam drsg .Change daily and prn. Apply Cavilon Skin Barrier to R and L heels and Malleoli.Cover each site with Optifoam drsgs .Change every 7 days and PRN. APM/CLINT mattress. Reposition at least every 2hours or as tolerated. Off-load heels with pillow. Monroe Reynaga Oct 14, 2018 14:37
--- NOTE | 2018-10-14 15:00 | NUR ---
NURSE NOTES: kept dry and clean bed bath given,comfort measures provided.
--- NOTE | 2018-10-14 18:25 | Nephrology Progress Note ---
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 Plan Plan: K Phos IV Pepcid continue the rest DNAR/DNI Comfort care Poor prognosis Subjective ROS Limited/Unobtainable: Yes Objective Objective Last 24 Hour Vital Signs Date Time Temp Pulse Resp B/P (MAP) Pulse Ox O2 Delivery O2 Flow Rate FiO2 10/14/18 18:10 92 15 113/58 (76) 100 10/14/18 17:06 99 20 108/61 (77) 100 10/14/18 16:00 108 10/14/18 16:00 8.0 30 10/14/18 16:00 T-piece 10/14/18 16:00 98.4 97 18 106/59 (75) 98 10/14/18 15:00 96 18 118/71 (87) 100 10/14/18 14:00 97 20 126/74 (91) 100 10/14/18 13:24 100 T-piece 8.0 30 10/14/18 13:24 T-piece 8.0 30 10/14/18 13:00 98 20 115/64 (81) 100 10/14/18 12:01 109 10/14/18 12:00 8.0 30 10/14/18 12:00 T-piece 10/14/18 12:00 98.5 101 16 130/70 (90) 100 10/14/18 11:00 97 22 109/61 (77) 97 10/14/18 10:03 100 17 110/81 (91) 100 10/14/18 09:00 96 18 106/60 (75) 100 10/14/18 08:00 106 10/14/18 08:00 T-piece 10/14/18 08:00 8.0 30 10/14/18 08:00 98.6 97 23 108/60 (76) 98 10/14/18 07:35 T-piece 8.0 30 10/14/18 07:35 100 T-piece 8.0 30 10/14/18 07:34 100 20 T-piece 8.0 30 10/14/18 07:00 98 23 106/63 (77) 100 10/14/18 06:00 94 22 100/61 (74) 100 10/14/18 05:00 96 19 103/53 (70) 100 10/14/18 04:00 99.1 101 26 99/56 (70) 99 10/14/18 04:00 103 10/14/18 04:00 T-piece 10/14/18 04:00 8.0 30 10/14/18 03:00 102 19 103/54 (70) 100 10/14/18 02:00 110 22 104/52 (69) 100 10/14/18 01:24 T-piece 8.0 30 10/14/18 01:24 98 T-piece 8.0 30 10/14/18 01:00 105 16 115/62 (79) 100 10/14/18 00:00 T-piece 10/14/18 00:00 98.6 102 24 119/60 (79) 100 10/14/18 00:00 8.0 30 10/14/18 00:00 94 10/13/18 23:00 106 27 131/60 (83) 93 10/13/18 22:00 91 26 111/64 (80) 100 10/13/18 21:00 99 22 97/61 (73) 100 10/13/18 20:00 106 10/13/18 20:00 T-piece 10/13/18 20:00 98.3 104 23 110/70 (83) 100 10/13/18 20:00 8.0 30 10/13/18 19:00 94 20 127/72 (90) 100 10/13/18 18:56 126 30 T-piece 8.0 30 10/13/18 18:55 97 T-piece 8.0 30 10/13/18 18:55 T-piece 8.0 30 Intake and Output 10/13/18 10/14/18 19:00 07:00 Intake Total 2271.86 ml 1930.9 ml Output Total 425 ml 655 ml Balance 1846.86 ml 1275.9 ml Intake Free Water 200 ml IV Total 1621.86 ml 1130.9 ml Tube Feeding 600 ml 600 ml Other 50 ml Output Urine Total 425 ml 655 ml Laboratory Tests 10/13/18 19:55: Vancomycin Level Trough 8.3 10/14/18 04:00: White Blood Count 16.6H, Red Blood Count 2.18L, Hemoglobin 7.0L, Hematocrit 20.4L, Mean Corpuscular Volume 94, Mean Corpuscular Hemoglobin 32.0H, Mean Corpuscular Hemoglobin Concent 34.2, Red Cell Distribution Width 14.1, Platelet Count 196, Mean Platelet Volume 6.3L, Neutrophils (%) (Auto) , Lymphocytes (%) ( Auto) , Monocytes (%) (Auto) , Eosinophils (%) (Auto) , Basophils (%) (Auto) , Differential Total Cells Counted 100, Neutrophils % (Manual) 90H, Lymphocytes % (Manual) 2L, Monocytes % (Manual) 3, Eosinophils % (Manual) 0, Basophils % ( Manual) 0, Band Neutrophils 5, Platelet Estimate Adequate, Platelet Morphology Normal, Anisocytosis 1+, [place] Cells 1+, Sodium Level 139, Potassium Level 3.2L, Chloride Level 105, Carbon Dioxide Level 23, Anion Gap 11, Blood Urea Nitrogen 16, Creatinine 0.8, Estimat Glomerular Filtration Rate > 60, Glucose Level 293H , Calcium Level 8.3L, Total Bilirubin 0.1L, Aspartate Amino Transf (AST/SGOT) 27 , Alanine Aminotransferase (ALT/SGPT) 31, Alkaline Phosphatase 98, Total Protein 6.0L, Albumin 1.7L, Globulin 4.3, Albumin/Globulin Ratio 0.4L Height (Feet): 5 Height (Inches): 7.00 Weight (Pounds): 123 General Appearance: no apparent distress Clint Piper MD Oct 14, 2018 18:25
--- NOTE | 2018-10-14 18:29 | Cardiology Progress Note ---
Assessment/Plan Assessment/Plan 1. Septic shock, due to B/L pneumonia, off vasopressin, MAP at 71, continue D5NS. 2. Dyspnea due to B/L pneumonia, 2D echo revealing + wall motion abnormalities in the septal wall, ? ischemic CM, LVEF ~45%. 3. CVA with severe debilitation, consider ASA and statins. 4. Dysphagia, s/p PEG placement. 5. VDRF, s/p tracheostomy placement. Subjective Subjective Sinus rhythm at rate of 91. Objective Last 24 Hour Vital Signs Date Time Temp Pulse Resp B/P (MAP) Pulse Ox O2 Delivery O2 Flow Rate FiO2 10/14/18 18:10 92 15 113/58 (76) 100 10/14/18 17:06 99 20 108/61 (77) 100 10/14/18 16:00 108 10/14/18 16:00 8.0 30 10/14/18 16:00 T-piece 10/14/18 16:00 98.4 97 18 106/59 (75) 98 10/14/18 15:00 96 18 118/71 (87) 100 10/14/18 14:00 97 20 126/74 (91) 100 10/14/18 13:24 100 T-piece 8.0 30 10/14/18 13:24 T-piece 8.0 30 10/14/18 13:00 98 20 115/64 (81) 100 10/14/18 12:01 109 10/14/18 12:00 8.0 30 10/14/18 12:00 T-piece 10/14/18 12:00 98.5 101 16 130/70 (90) 100 10/14/18 11:00 97 22 109/61 (77) 97 10/14/18 10:03 100 17 110/81 (91) 100 10/14/18 09:00 96 18 106/60 (75) 100 10/14/18 08:00 106 10/14/18 08:00 T-piece 10/14/18 08:00 8.0 30 10/14/18 08:00 98.6 97 23 108/60 (76) 98 10/14/18 07:35 T-piece 8.0 30 10/14/18 07:35 100 T-piece 8.0 30 10/14/18 07:34 100 20 T-piece 8.0 30 10/14/18 07:00 98 23 106/63 (77) 100 10/14/18 06:00 94 22 100/61 (74) 100 10/14/18 05:00 96 19 103/53 (70) 100 10/14/18 04:00 99.1 101 26 99/56 (70) 99 10/14/18 04:00 103 10/14/18 04:00 T-piece 10/14/18 04:00 8.0 30 10/14/18 03:00 102 19 103/54 (70) 100 10/14/18 02:00 110 22 104/52 (69) 100 10/14/18 01:24 T-piece 8.0 30 10/14/18 01:24 98 T-piece 8.0 30 10/14/18 01:00 105 16 115/62 (79) 100 10/14/18 00:00 T-piece 10/14/18 00:00 98.6 102 24 119/60 (79) 100 10/14/18 00:00 8.0 30 10/14/18 00:00 94 10/13/18 23:00 106 27 131/60 (83) 93 10/13/18 22:00 91 26 111/64 (80) 100 10/13/18 21:00 99 22 97/61 (73) 100 10/13/18 20:00 106 10/13/18 20:00 T-piece 10/13/18 20:00 98.3 104 23 110/70 (83) 100 10/13/18 20:00 8.0 30 10/13/18 19:00 94 20 127/72 (90) 100 10/13/18 18:56 126 30 T-piece 8.0 30 10/13/18 18:55 97 T-piece 8.0 30 10/13/18 18:55 T-piece 8.0 30 Intake and Output 10/13/18 10/14/18 19:00 07:00 Intake Total 2271.86 ml 1930.9 ml Output Total 425 ml 655 ml Balance 1846.86 ml 1275.9 ml Intake Free Water 200 ml IV Total 1621.86 ml 1130.9 ml Tube Feeding 600 ml 600 ml Other 50 ml Output Urine Total 425 ml 655 ml 2D Echo: LVEF 45%, Septal wall hypokinesia, Grade I LVDD Laboratory Tests Test 2/14/19 19:55 10/14/18 04:00 Vancomycin Level Trough 8.3 ug/mL (5.0-12.0) White Blood Count 16.6 K/UL (4.8-10.8) H Red Blood Count 2.18 M/UL (4.70-6.10) L Hemoglobin 7.0 G/DL (14.2-18.0) L Hematocrit 20.4 % (42.0-52.0) L Mean Corpuscular Volume 94 FL (80-99) Mean Corpuscular Hemoglobin 32.0 PG (27.0-31.0) H Mean Corpuscular Hemoglobin Concent 34.2 G/DL (32.0-36.0) Red Cell Distribution Width 14.1 % (11.6-14.8) Platelet Count 196 K/UL (150-450) Mean Platelet Volume 6.3 FL (6.5-10.1) L Neutrophils (%) (Auto) % (45.0-75.0) Lymphocytes (%) (Auto) % (20.0-45.0) Monocytes (%) (Auto) % (1.0-10.0) Eosinophils (%) (Auto) % (0.0-3.0) Basophils (%) (Auto) % (0.0-2.0) Differential Total Cells Counted 100 Neutrophils % (Manual) 90 % (45-75) H Lymphocytes % (Manual) 2 % (20-45) L Monocytes % (Manual) 3 % (1-10) Eosinophils % (Manual) 0 % (0-3) Basophils % (Manual) 0 % (0-2) Band Neutrophils 5 % (0-8) Platelet Estimate Adequate Platelet Morphology Normal Anisocytosis 1+ Grecia Cells 1+ Sodium Level 139 MMOL/L (136-145) Potassium Level 3.2 MMOL/L (3.5-5.1) L Chloride Level 105 MMOL/L (98-107) Carbon Dioxide Level 23 MMOL/L (21-32) Anion Gap 11 mmol/L (5-15) Blood Urea Nitrogen 16 mg/dL (7-18) Creatinine 0.8 MG/DL (0.55-1.30) Estimat Glomerular Filtration Rate > 60 mL/min (>60) Glucose Level 293 MG/DL (74-106) H Calcium Level 8.3 MG/DL (8.5-10.1) L Total Bilirubin 0.1 MG/DL (0.2-1.0) L Aspartate Amino Transf (AST/SGOT) 27 U/L (15-37) Alanine Aminotransferase (ALT/SGPT) 31 U/L (12-78) Alkaline Phosphatase 98 U/L (46-116) Total Protein 6.0 G/DL (6.4-8.2) L Albumin 1.7 G/DL (3.4-5.0) L Globulin 4.3 g/dL Albumin/Globulin Ratio 0.4 (1.0-2.7) L Microbiology Date/Time Source Procedure Growth Status 10/12/18 04:00 Stool Clostridium difficile Toxin Assay - Final Complete Objective HEENT: Atraumatic, bitemporal wasting, dry mucosal membranes, PERRLA NECK: cannot assess JVP, tracheostomy tube in place. HEART: Regular rate and rhythm. Tachycardic. No murmurs, gallops or rubs. Lungs: Bibasilar crackles. ABDOMEN: Soft, NT/ND, + BS. G-tube in place. EXTREMITIES: No edema, clubbing or cyanosis. NEUROLOGIC: Nonresponsive, vegetative state. Davy Estrada MD Oct 14, 2018 18:29
[2018-10-14] MEDS: Albuterol/Ipratropium 3ml neb HHN SCH (19:02)
--- NOTE | 2018-10-14 19:18 | NUR ---
HAND-OFF: Report given to Kelvin Greene RN.
--- NOTE | 2018-10-14 19:45 | NUR ---
NURSE NOTES: Patient obtunded, on trach, fio2 30% t-piece status, o2 saturation 97% noted, abdomen soft, hyperactive bowel sound to 4 quadrants, G tube intact and patent, ongoing Vital AF 1.2 at 50ml/hr, no residue noted, Rectal tube intact and patent, thin brown color liquid stool outed, F/C intact and patent, yellow urine outed, TLC to right femoral, intact and patent, ongoing D5 NS at 50ml/hr via TLC, on P200 bed, made lower bed position, provided call light within reach, will continue to monitor.
[2018-10-14] MEDS: Vasopressin 100 UNITS in NS 95 ML IV SCH (20:00)
[2018-10-14] MEDS: Iron Sucrose 100 MG in NS 55 ML IV SCH (20:43)
--- NOTE | 2018-10-14 22:00 | NUR ---
NURSE NOTES: Repositioned, oral care was done, will continue to monitor.
[2018-10-15] VITALS (10 sets, daily range): BP systolic 116–144; BP diastolic 63–80
--- NOTE | 2018-10-15 01:10 | NUR ---
NURSE NOTES: Oral care was done, kept hob over 30 degree for prevent aspiration, will continue plan of care.
[2018-10-15] MEDS: Albuterol/Ipratropium 3ml neb HHN SCH ×4 (01:16→18:52)
[2018-10-15] MEDS: D5NS 1,000 ML IV SCH ×2 (01:50→05:41)
--- NOTE | 2018-10-15 03:10 | NUR ---
NURSE NOTES: No acute distress noted at this time.
--- NOTE | 2018-10-15 04:20 | NUR ---
NURSE NOTES: Morning care was done.
--- NOTE | 2018-10-15 05:05 | NUR ---
TRANSFER TO FLOOR: Patient transferred to SDU ROOM 245-1. Report given to KOLE STRINGER. Belongings and medications given to KOLE STRINGER.
--- NOTE | 2018-10-15 05:06 | NUR ---
NURSE NOTES: Received patient from Kelvin, RN from ICU. Patient is stable, belongings accounted for at bedside and wound pictures are taken.
[2018-10-15] MEDS: Hydrocortisone 100mg Inj IV SCH ×3 (05:40→20:09)
[2018-10-15] MEDS: Piperacillin/Tazobactam 3.375 GM in NS 110 ML IVPB SCH ×3 (05:41→20:09)
[2018-10-15] MEDS ORDERED: Albuterol/Ipratropium 3ml neb HHN PRN (07:00)
[2018-10-15] MEDS ORDERED: Acetaminophen 650 MG SUPP RECTAL PRN (07:00)
[2018-10-15] MEDS ORDERED: Midazolam 2mg/2ml Inj IVP PRN (07:00)
--- NOTE | 2018-10-15 07:29 | NUR ---
HAND-OFF: Report given to KOLE ARGUELLO.
--- NOTE | 2018-10-15 07:55 | NUR ---
NURSE NOTES: Report received from KOLE Haynes. Observed patient in bed sleeping. Obtunded and non-verbal. On T-piece with 6L of oxygen with no distress noted. No s/s of pain at this time. TLC on right femoral intact with IVF running at prescribed rate. GT site intact with ongoing feeding. HOB elevated. F/C and rectal tube intact and draining well. Bed in lowest position. Call light within reach. Will continue to monitor.
[2018-10-15] MEDS: Heparin 5000 units/ml inj SUBQ SCH ×2 (09:05→20:08)
--- NOTE | 2018-10-15 11:27 | NUR ---
CASE MANAGEMENT: REVIEW 10/15/2018 SI: SEPSIS . PNA . UTI T 99.2 HR 101 RR 19 B/P 139/80 SATS 97% ON 8L/TPIECE NO LABS TODAY IS: IVF @ 50 ml/HR ZOSYN IV Q8H SOLU CORTEF IV Q8H VENOFER IV QHS VANCO IV Q12H PEPCID IV Q12H LEVOPHED DRIP PER PROTOCOL [facility] STATUS DCP: PATIENT IS FROM [facility]
--- NOTE | 2018-10-15 11:56 | General Progress Note ---
Assessment/Plan Problem List: (1) Gastrostomy tube dependent ICD Codes: Z93.1 - Gastrostomy status SNOMED: 461310320, 733434496 (2) Anemia ICD Codes: D64.9 - Anemia, unspecified SNOMED: 574371933 (3) Iron deficiency ICD Codes: E61.1 - Iron deficiency SNOMED: 49465811 (4) Feeding by G-tube ICD Codes: Z93.1 - Gastrostomy status SNOMED: 294476769, 333017665, 170109001 (5) Tracheostomy care ICD Codes: Z43.0 - Encounter for attention to tracheostomy SNOMED: 796045572 (6) Pneumonia ICD Codes: J18.9 - Pneumonia, unspecified organism SNOMED: 293371740 Qualifiers: Qualified Codes: J18.9 - Pneumonia, unspecified organism Assessment/Plan Anemia workup reviewed. Iron deficiency. OB stool negative. G-tube dependent Rectal tube present Cdiff negative G-tube feeding per RD to goal Reglan for GI motility if needed monitor H&H, as needed transfusions Antibiotics venofer No plans for GI procedures unless urgent Follow labs Subjective ROS Limited/Unobtainable: No Allergies: Coded Allergies: No Known Allergies (Unverified , 10/11/18) Objective Last 24 Hour Vital Signs Date Time Temp Pulse Resp B/P (MAP) Pulse Ox O2 Delivery O2 Flow Rate FiO2 10/15/18 08:04 97 20 99 T-piece 8.0 30 10/15/18 08:00 8.0 30 10/15/18 08:00 T-piece 10/15/18 08:00 99.2 101 19 139/80 (99) 97 10/15/18 07:59 99 10/15/18 07:56 99 20 98 T-piece 8.0 30 10/15/18 07:56 T-piece 8.0 30 10/15/18 07:56 98 T-piece 8.0 30 10/15/18 07:55 99 20 T-piece 8.0 30 10/15/18 05:00 96 15 129/74 (92) 100 10/15/18 04:00 98.8 101 21 129/75 (93) 100 10/15/18 04:00 101 10/15/18 04:00 T-piece 10/15/18 04:00 8.0 30 10/15/18 03:00 98 21 124/70 (88) 100 10/15/18 02:00 107 22 116/63 (80) 100 10/15/18 01:32 102 15 98 T-piece 8.0 30 10/15/18 01:16 115 21 100 T-piece 8.0 30 10/15/18 01:16 100 T-piece 8.0 30 10/15/18 01:16 T-piece 8.0 30 10/15/18 01:00 108 19 134/75 (94) 96 10/15/18 00:00 T-piece 10/15/18 00:00 98.5 99 19 126/64 (84) 100 10/15/18 00:00 8.0 30 10/14/18 23:45 98 10/14/18 23:00 99 22 125/67 (86) 100 10/14/18 22:00 96 18 119/66 (83) 100 10/14/18 21:00 101 19 118/64 (82) 97 10/14/18 20:00 T-piece 10/14/18 20:00 98.5 104 19 106/52 (70) 97 10/14/18 20:00 8.0 30 10/14/18 19:12 101 15 100 T-piece 8.0 30 10/14/18 19:02 T-piece 8.0 30 10/14/18 19:02 100 T-piece 8.0 30 10/14/18 19:02 100 19 T-piece 8.0 30 10/14/18 19:02 100 19 100 T-piece 8.0 30 10/14/18 19:01 91 16 119/63 (81) 100 10/14/18 19:00 119/63 10/14/18 18:10 92 15 113/58 (76) 100 10/14/18 17:06 99 20 108/61 (77) 100 10/14/18 16:00 108 10/14/18 16:00 8.0 30 10/14/18 16:00 T-piece 10/14/18 16:00 98.4 97 18 106/59 (75) 98 10/14/18 15:00 96 18 118/71 (87) 100 10/14/18 14:00 97 20 126/74 (91) 100 10/14/18 13:24 100 T-piece 8.0 30 10/14/18 13:24 T-piece 8.0 30 10/14/18 13:00 98 20 115/64 (81) 100 10/14/18 12:01 109 10/14/18 12:00 8.0 30 10/14/18 12:00 T-piece 10/14/18 12:00 98.5 101 16 130/70 (90) 100 Intake and Output 10/14/18 10/15/18 18:59 06:59 Intake Total 1510.0 ml 1377.01 ml Output Total 1155 ml 835 ml Balance 355.0 ml 542.01 ml Intake Free Water 200 ml 100 ml IV Total 710.0 ml 727.01 ml Tube Feeding 600 ml 550 ml Output Urine Total 955 ml 835 ml Stool Total 200 ml Height (Feet): 5 Height (Inches): 7.00 Weight (Pounds): 124 General Appearance: no apparent distress EENT: normal ENT inspection Neck: supple Cardiovascular: normal rate Respiratory/Chest: decreased breath sounds Abdomen: normal bowel sounds, non tender, soft Extremities: non-tender Gerson Dixon MD Oct 15, 2018 11:56
--- NOTE | 2018-10-15 13:15 | Nephrology Progress Note ---
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 Plan Plan: K Phos IV Pepcid continue the rest DNAR/DNI Comfort care Poor prognosis Subjective ROS Limited/Unobtainable: No Objective Objective Last 24 Hour Vital Signs Date Time Temp Pulse Resp B/P (MAP) Pulse Ox O2 Delivery O2 Flow Rate FiO2 10/15/18 13:04 T-piece 8.0 30 10/15/18 13:04 99 T-piece 8.0 30 10/15/18 12:59 98 20 98 T-piece 8.0 30 10/15/18 12:00 8.0 30 10/15/18 12:00 T-piece 10/15/18 12:00 99.5 70 17 136/77 (96) 100 10/15/18 08:04 97 20 99 T-piece 8.0 30 10/15/18 08:00 8.0 30 10/15/18 08:00 T-piece 10/15/18 08:00 99.2 101 19 139/80 (99) 97 10/15/18 07:59 99 10/15/18 07:56 99 20 98 T-piece 8.0 30 10/15/18 07:56 T-piece 8.0 30 10/15/18 07:56 98 T-piece 8.0 30 10/15/18 07:55 99 20 T-piece 8.0 30 10/15/18 05:00 96 15 129/74 (92) 100 10/15/18 04:00 98.8 101 21 129/75 (93) 100 10/15/18 04:00 101 10/15/18 04:00 T-piece 10/15/18 04:00 8.0 30 10/15/18 03:00 98 21 124/70 (88) 100 10/15/18 02:00 107 22 116/63 (80) 100 10/15/18 01:32 102 15 98 T-piece 8.0 30 10/15/18 01:16 115 21 100 T-piece 8.0 30 10/15/18 01:16 100 T-piece 8.0 30 10/15/18 01:16 T-piece 8.0 30 10/15/18 01:00 108 19 134/75 (94) 96 10/15/18 00:00 T-piece 10/15/18 00:00 98.5 99 19 126/64 (84) 100 10/15/18 00:00 8.0 30 10/14/18 23:45 98 10/14/18 23:00 99 22 125/67 (86) 100 10/14/18 22:00 96 18 119/66 (83) 100 10/14/18 21:00 101 19 118/64 (82) 97 10/14/18 20:00 T-piece 10/14/18 20:00 98.5 104 19 106/52 (70) 97 10/14/18 20:00 8.0 30 10/14/18 19:12 101 15 100 T-piece 8.0 30 10/14/18 19:02 T-piece 8.0 30 10/14/18 19:02 100 T-piece 8.0 30 10/14/18 19:02 100 19 T-piece 8.0 30 10/14/18 19:02 100 19 100 T-piece 8.0 30 10/14/18 19:01 91 16 119/63 (81) 100 10/14/18 19:00 119/63 10/14/18 18:10 92 15 113/58 (76) 100 10/14/18 17:06 99 20 108/61 (77) 100 10/14/18 16:00 108 10/14/18 16:00 8.0 30 10/14/18 16:00 T-piece 10/14/18 16:00 98.4 97 18 106/59 (75) 98 10/14/18 15:00 96 18 118/71 (87) 100 10/14/18 14:00 97 20 126/74 (91) 100 10/14/18 13:24 100 T-piece 8.0 30 10/14/18 13:24 T-piece 8.0 30 Intake and Output 10/14/18 10/15/18 18:59 06:59 Intake Total 1510.0 ml 1377.01 ml Output Total 1155 ml 835 ml Balance 355.0 ml 542.01 ml Intake Free Water 200 ml 100 ml IV Total 710.0 ml 727.01 ml Tube Feeding 600 ml 550 ml Output Urine Total 955 ml 835 ml Stool Total 200 ml Height (Feet): 5 Height (Inches): 7.00 Weight (Pounds): 124 General Appearance: no apparent distress Objective no change Clint Piper MD Oct 15, 2018 13:15
--- NOTE | 2018-10-15 14:12 | Pulmonology Progress Note ---
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 Respiratory: monitor respiratory rate, other - HHN's, NAC Cardiac: stop pressors, continue to monitor HR/BP, other - Dec HC to 50 IV TID Renal: keep IV fluid, check electrolytes Infectious Disease: continue antibiotics - Zosyn per ID Gastrointestinal: continue feedings/current rate, other Endocrine: monitor blood sugar Hematologic: monitor H/H - transfuse PRN Hb < 7 Prophylaxis: Protonix, Heparin Disposition: transfer to - [facility] Time Spent (Minutes): 30 Notes 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 Complete 10/12/18 04:00 Stool Clostridium difficile Toxin Assay - Final Complete 10/11/18 15:00 Urine,Clean Catch Urine Culture - Final Escherichia Coli Complete 10/11/18 16:15 Rectum VRE Culture - Final Enterococcus Faecalis - Vre Enterococcus Faecium - Vre Complete Labs: Laboratory Tests Test 10/13/18 19:55 10/14/18 04:00 Vancomycin Level Trough 8.3 ug/mL (5.0-12.0) White Blood Count 16.6 K/UL (4.8-10.8) H Red Blood Count 2.18 M/UL (4.70-6.10) L Hemoglobin 7.0 G/DL (14.2-18.0) L Hematocrit 20.4 % (42.0-52.0) L Mean Corpuscular Volume 94 FL (80-99) Mean Corpuscular Hemoglobin 32.0 PG (27.0-31.0) H Mean Corpuscular Hemoglobin Concent 34.2 G/DL (32.0-36.0) Red Cell Distribution Width 14.1 % (11.6-14.8) Platelet Count 196 K/UL (150-450) Mean Platelet Volume 6.3 FL (6.5-10.1) L Neutrophils (%) (Auto) % (45.0-75.0) Lymphocytes (%) (Auto) % (20.0-45.0) Monocytes (%) (Auto) % (1.0-10.0) Eosinophils (%) (Auto) % (0.0-3.0) Basophils (%) (Auto) % (0.0-2.0) Differential Total Cells Counted 100 Neutrophils % (Manual) 90 % (45-75) H Lymphocytes % (Manual) 2 % (20-45) L Monocytes % (Manual) 3 % (1-10) Eosinophils % (Manual) 0 % (0-3) Basophils % (Manual) 0 % (0-2) Band Neutrophils 5 % (0-8) Platelet Estimate Adequate Platelet Morphology Normal Anisocytosis 1+ Raymond Cells 1+ Sodium Level 139 MMOL/L (136-145) Potassium Level 3.2 MMOL/L (3.5-5.1) L Chloride Level 105 MMOL/L (98-107) Carbon Dioxide Level 23 MMOL/L (21-32) Anion Gap 11 mmol/L (5-15) Blood Urea Nitrogen 16 mg/dL (7-18) Creatinine 0.8 MG/DL (0.55-1.30) Estimat Glomerular Filtration Rate > 60 mL/min (>60) Glucose Level 293 MG/DL (74-106) H Calcium Level 8.3 MG/DL (8.5-10.1) L Total Bilirubin 0.1 MG/DL (0.2-1.0) L Aspartate Amino Transf (AST/SGOT) 27 U/L (15-37) Alanine Aminotransferase (ALT/SGPT) 31 U/L (12-78) Alkaline Phosphatase 98 U/L (46-116) Total Protein 6.0 G/DL (6.4-8.2) L Albumin 1.7 G/DL (3.4-5.0) L Globulin 4.3 g/dL Albumin/Globulin Ratio 0.4 (1.0-2.7) L Subjective ROS Limited/Unobtainable: No Allergies: Coded Allergies: No Known Allergies (Unverified , 10/11/18) Objective Last 24 Hour Vital Signs Date Time Temp Pulse Resp B/P (MAP) Pulse Ox O2 Delivery O2 Flow Rate FiO2 10/15/18 13:27 95 20 99 T-piece 8.0 30 10/15/18 13:04 T-piece 8.0 30 10/15/18 13:04 99 T-piece 8.0 30 10/15/18 12:59 98 20 98 T-piece 8.0 30 10/15/18 12:00 8.0 30 10/15/18 12:00 T-piece 10/15/18 12:00 99.5 70 17 136/77 (96) 100 10/15/18 11:51 90 10/15/18 08:04 97 20 99 T-piece 8.0 30 10/15/18 08:00 8.0 30 10/15/18 08:00 T-piece 10/15/18 08:00 99.2 101 19 139/80 (99) 97 10/15/18 07:59 99 10/15/18 07:56 99 20 98 T-piece 8.0 30 10/15/18 07:56 T-piece 8.0 30 10/15/18 07:56 98 T-piece 8.0 30 10/15/18 07:55 99 20 T-piece 8.0 30 10/15/18 05:00 96 15 129/74 (92) 100 10/15/18 04:00 98.8 101 21 129/75 (93) 100 10/15/18 04:00 101 10/15/18 04:00 T-piece 10/15/18 04:00 8.0 30 10/15/18 03:00 98 21 124/70 (88) 100 10/15/18 02:00 107 22 116/63 (80) 100 10/15/18 01:32 102 15 98 T-piece 8.0 30 10/15/18 01:16 115 21 100 T-piece 8.0 30 10/15/18 01:16 100 T-piece 8.0 30 10/15/18 01:16 T-piece 8.0 30 10/15/18 01:00 108 19 134/75 (94) 96 10/15/18 00:00 T-piece 10/15/18 00:00 98.5 99 19 126/64 (84) 100 10/15/18 00:00 8.0 30 10/14/18 23:45 98 10/14/18 23:00 99 22 125/67 (86) 100 10/14/18 22:00 96 18 119/66 (83) 100 10/14/18 21:00 101 19 118/64 (82) 97 10/14/18 20:00 T-piece 10/14/18 20:00 98.5 104 19 106/52 (70) 97 10/14/18 20:00 8.0 30 10/14/18 19:12 101 15 100 T-piece 8.0 30 10/14/18 19:02 T-piece 8.0 30 10/14/18 19:02 100 T-piece 8.0 30 10/14/18 19:02 100 19 T-piece 8.0 30 10/14/18 19:02 100 19 100 T-piece 8.0 30 10/14/18 19:01 91 16 119/63 (81) 100 10/14/18 19:00 119/63 10/14/18 18:10 92 15 113/58 (76) 100 10/14/18 17:06 99 20 108/61 (77) 100 10/14/18 16:00 108 10/14/18 16:00 8.0 30 10/14/18 16:00 T-piece 10/14/18 16:00 98.4 97 18 106/59 (75) 98 10/14/18 15:00 96 18 118/71 (87) 100 Intake and Output 10/14/18 10/15/18 18:59 06:59 Intake Total 1510.0 ml 1377.01 ml Output Total 1155 ml 835 ml Balance 355.0 ml 542.01 ml Intake Free Water 200 ml 100 ml IV Total 710.0 ml 727.01 ml Tube Feeding 600 ml 550 ml Output Urine Total 955 ml 835 ml Stool Total 200 ml Current Medications Medications (Trade) Dose Ordered Sig/Last Route PRN Reason Start Time Stop Time Status Last Admin Dose Admin Acetaminophen (Tylenol) 650 mg Q4H PRN RECTAL Prn Headache/Temp > 101 10/15/18 07:00 11/10/18 18:59 Acetylcysteine (Mucomyst) 100 mg TIDRT HHN 10/15/18 07:00 11/13/18 18:59 10/15/18 13:00 Albuterol/ Ipratropium (Albuterol/ Ipratropium) 3 ml Q4H PRN HHN Shortness of Breath 10/15/18 07:00 10/16/18 18:59 Albuterol/ Ipratropium (Albuterol/ Ipratropium) 3 ml Q6HRT HHN 10/15/18 07:00 10/19/18 18:59 10/15/18 13:00 Chlorhexidine Gluconate (Petra-Hex 2%) 1 applic DAILY@2000 TOPIC 10/15/18 20:00 11/14/18 19:59 Dextrose/Sodium Chloride 1,000 ml @ 50 mls/hr Q20H IV 10/15/18 05:30 11/10/18 09:40 10/15/18 05:41 Famotidine (Pepcid I.v.) 20 mg Q12HR IVP 10/15/18 09:00 11/12/18 20:59 10/15/18 09:04 Heparin Sodium (Porcine) (Heparin 5000 units/ml) 5,000 units EVERY 12 HOURS SUBQ 10/15/18 09:00 11/10/18 20:59 10/15/18 09:05 Hydrocortisone (Solu-CORTEF) 50 mg EVERY 8 HOURS IV 10/15/18 06:00 11/10/18 21:59 10/15/18 14:03 Midazolam HCl (Versed 2mg/2ml vial) 2 mg Q4H PRN IVP Agitation 10/15/18 07:00 11/10/18 18:59 Piperacillin Sod/ Tazobactam Sod 3.375 gm/Sodium Chloride 110 ml @ 27.5 mls/hr EVERY 8 HOURS IVPB 10/15/18 06:00 10/16/18 21:59 10/15/18 14:05 Jorge A Kay MD Oct 15, 2018 14:12
--- NOTE | 2018-10-15 18:41 | General Progress Note ---
Assessment/Plan Problem List: (1) Cerebral infarction ICD Codes: I63.9 - Cerebral infarction, unspecified SNOMED: 736438440 (2) Renal failure ICD Codes: N19 - Unspecified kidney failure SNOMED: 78144371 Qualifiers: Qualified Codes: N17.9 - Acute kidney failure, unspecified (3) Encephalopathy ICD Codes: G93.40 - Encephalopathy, unspecified SNOMED: 60083966 (4) Lactic acid acidosis ICD Codes: E87.2 - Acidosis SNOMED: 28177404 (5) Tracheostomy care ICD Codes: Z43.0 - Encounter for attention to tracheostomy SNOMED: 740188454 (6) LUZ MARIA (acute kidney injury) ICD Codes: N17.9 - Acute kidney failure, unspecified SNOMED: 53706950 (7) DNAR (do not attempt resuscitation) ICD Codes: Z66 - Do not resuscitate SNOMED: 023690707 (8) Dehydration ICD Codes: E86.0 - Dehydration SNOMED: 81224020 (9) Iron deficiency ICD Codes: E61.1 - Iron deficiency SNOMED: 79922643 Status: progressing Assessment/Plan afebrile vitals stable transfer to [facility] have reemphasized to team to go w dopa decsion and do comfort care and honor dpoa request very congested resp failure trach malnutition very poor prognosis i Subjective ROS Limited/Unobtainable: Yes Allergies: Coded Allergies: No Known Allergies (Unverified , 10/11/18) Objective Last 24 Hour Vital Signs Date Time Temp Pulse Resp B/P (MAP) Pulse Ox O2 Delivery O2 Flow Rate FiO2 10/15/18 16:00 8.0 30 10/15/18 16:00 T-piece 10/15/18 16:00 98.8 85 19 133/76 (95) 98 10/15/18 15:35 87 10/15/18 13:27 95 20 99 T-piece 8.0 30 10/15/18 13:04 T-piece 8.0 30 10/15/18 13:04 99 T-piece 8.0 30 10/15/18 12:59 98 20 98 T-piece 8.0 30 10/15/18 12:00 8.0 30 10/15/18 12:00 T-piece 10/15/18 12:00 99.5 70 17 136/77 (96) 100 10/15/18 11:51 90 10/15/18 08:04 97 20 99 T-piece 8.0 30 10/15/18 08:00 8.0 30 10/15/18 08:00 T-piece 10/15/18 08:00 99.2 101 19 139/80 (99) 97 10/15/18 07:59 99 10/15/18 07:56 99 20 98 T-piece 8.0 30 10/15/18 07:56 T-piece 8.0 30 10/15/18 07:56 98 T-piece 8.0 30 10/15/18 07:55 99 20 T-piece 8.0 30 10/15/18 05:00 96 15 129/74 (92) 100 10/15/18 04:00 98.8 101 21 129/75 (93) 100 10/15/18 04:00 101 10/15/18 04:00 T-piece 10/15/18 04:00 8.0 30 10/15/18 03:00 98 21 124/70 (88) 100 10/15/18 02:00 107 22 116/63 (80) 100 10/15/18 01:32 102 15 98 T-piece 8.0 30 10/15/18 01:16 115 21 100 T-piece 8.0 30 10/15/18 01:16 100 T-piece 8.0 30 10/15/18 01:16 T-piece 8.0 30 10/15/18 01:00 108 19 134/75 (94) 96 10/15/18 00:00 T-piece 10/15/18 00:00 98.5 99 19 126/64 (84) 100 10/15/18 00:00 8.0 30 10/14/18 23:45 98 10/14/18 23:00 99 22 125/67 (86) 100 10/14/18 22:00 96 18 119/66 (83) 100 10/14/18 21:00 101 19 118/64 (82) 97 10/14/18 20:00 T-piece 10/14/18 20:00 98.5 104 19 106/52 (70) 97 10/14/18 20:00 8.0 30 10/14/18 19:12 101 15 100 T-piece 8.0 30 10/14/18 19:02 T-piece 8.0 30 10/14/18 19:02 100 T-piece 8.0 30 10/14/18 19:02 100 19 T-piece 8.0 30 10/14/18 19:02 100 19 100 T-piece 8.0 30 10/14/18 19:01 91 16 119/63 (81) 100 10/14/18 19:00 119/63 Intake and Output 10/14/18 10/15/18 19:00 07:00 Intake Total 1515.0 ml 1372.01 ml Output Total 1125 ml 835 ml Balance 390.0 ml 537.01 ml Intake Free Water 200 ml 100 ml IV Total 765.0 ml 672.01 ml Tube Feeding 550 ml 600 ml Output Urine Total 925 ml 835 ml Stool Total 200 ml Laboratory Tests 10/15/18 16:41: Arterial Blood pH 7.508H, Arterial Blood Partial Pressure CO2 36.6, Arterial Blood Partial Pressure O2 85.5, Arterial Blood HCO3 28.4H, Arterial Blood Oxygen Saturation 96.0, Arterial Blood Base Excess 5.0H, José Miguel Test Positive Height (Feet): 5 Height (Inches): 7.00 Weight (Pounds): 124 General Appearance: confused Cardiovascular: normal rate Respiratory/Chest: lungs clear Abdomen: soft Lula Aaron MD Oct 15, 2018 18:41
--- NOTE | 2018-10-15 19:00 | NUR ---
NURSE NOTES: Report received from Mansi SHARIF. Observed patient in bed sleeping. Obtunded and non-verbal. On T-piece with 8L of oxygen 30% FiO2 with no distress noted. No s/s of pain at this time. TLC on right femoral intact with IVF running at prescribed rate D5NS @ 50ml/hr. GT site intact with ongoing feeding of Vital AF 1.2 at 50ml/hr. HOB elevated. F/C and rectal tube intact and draining well. Bed in lowest position. Call light within reach. Will continue to monitor.
--- NOTE | 2018-10-15 19:31 | NUR ---
HAND-OFF: Report given to KOLE Rankin. Stable condition.
[2018-10-15] MEDS ORDERED: Dyna-Hex 2% Top Sol 2oz TOPIC SCH (20:00)
[2018-10-15] MEDS ORDERED: Vasopressin 100 UNITS in NS 95 ML IV SCH (20:00)
[2018-10-15] MEDS: Dyna-Hex 2% Top Sol 2oz TOPIC SCH (20:08)
--- NOTE | 2018-10-15 21:59 | Cardiology Progress Note ---
Assessment/Plan Assessment/Plan 1. Septic shock,resolved, due to B/L pneumonia, continue D5NS. 2. Dyspnea due to B/L pneumonia, 2D echo revealing + wall motion abnormalities in the septal wall, ? ischemic CM, LVEF ~45%. 3. CVA with severe debilitation, consider ASA and statins. 4. Dysphagia, s/p PEG placement. 5. VDRF, s/p tracheostomy placement. Subjective Subjective Sinus rhythm at rate of 82. On T-piece, FiO2 30%. Objective Last 24 Hour Vital Signs Date Time Temp Pulse Resp B/P (MAP) Pulse Ox O2 Delivery O2 Flow Rate FiO2 10/15/18 20:00 T-piece 10/15/18 20:00 99.7 82 20 144/77 (99) 98 10/15/18 20:00 79 10/15/18 20:00 8.0 30 10/15/18 19:12 T-piece 8.0 30 10/15/18 19:03 87 20 98 T-piece 8.0 30 10/15/18 18:54 98 20 T-piece 8.0 30 10/15/18 18:54 98 T-piece 8.0 30 10/15/18 18:52 85 18 98 T-piece 8.0 30 10/15/18 16:00 8.0 30 10/15/18 16:00 T-piece 10/15/18 16:00 98.8 85 19 133/76 (95) 98 10/15/18 15:35 87 10/15/18 13:27 95 20 99 T-piece 8.0 30 10/15/18 13:04 T-piece 8.0 30 10/15/18 13:04 99 T-piece 8.0 30 10/15/18 12:59 98 20 98 T-piece 8.0 30 10/15/18 12:00 8.0 30 10/15/18 12:00 T-piece 10/15/18 12:00 99.5 70 17 136/77 (96) 100 10/15/18 11:51 90 10/15/18 08:04 97 20 99 T-piece 8.0 30 10/15/18 08:00 8.0 30 10/15/18 08:00 T-piece 10/15/18 08:00 99.2 101 19 139/80 (99) 97 10/15/18 07:59 99 10/15/18 07:56 99 20 98 T-piece 8.0 30 10/15/18 07:56 T-piece 8.0 30 10/15/18 07:56 98 T-piece 8.0 30 10/15/18 07:55 99 20 T-piece 8.0 30 10/15/18 05:00 96 15 129/74 (92) 100 10/15/18 04:00 98.8 101 21 129/75 (93) 100 10/15/18 04:00 101 10/15/18 04:00 T-piece 10/15/18 04:00 8.0 30 10/15/18 03:00 98 21 124/70 (88) 100 10/15/18 02:00 107 22 116/63 (80) 100 10/15/18 01:32 102 15 98 T-piece 8.0 30 10/15/18 01:16 115 21 100 T-piece 8.0 30 10/15/18 01:16 100 T-piece 8.0 30 10/15/18 01:16 T-piece 8.0 30 10/15/18 01:00 108 19 134/75 (94) 96 10/15/18 00:00 T-piece 10/15/18 00:00 98.5 99 19 126/64 (84) 100 10/15/18 00:00 8.0 30 10/14/18 23:45 98 10/14/18 23:00 99 22 125/67 (86) 100 10/14/18 22:00 96 18 119/66 (83) 100 Intake and Output 10/14/18 10/15/18 19:00 07:00 Intake Total 1515.0 ml 1372.01 ml Output Total 1125 ml 835 ml Balance 390.0 ml 537.01 ml Intake Free Water 200 ml 100 ml IV Total 765.0 ml 672.01 ml Tube Feeding 550 ml 600 ml Output Urine Total 925 ml 835 ml Stool Total 200 ml 2D Echo: LVEF 45%, Septal wall hypokinesia, Grade I LVDD Laboratory Tests Test 10/15/18 16:41 Arterial Blood pH 7.508 (7.350-7.450) Arterial Blood Partial Pressure CO2 36.6 mmHg (35.0-45.0) Arterial Blood Partial Pressure O2 85.5 mmHg (75.0-100.0) Arterial Blood HCO3 28.4 mmol/L (22.0-26.0) H Arterial Blood Oxygen Saturation 96.0 % (95-100) Arterial Blood Base Excess 5.0 (-2-2) H José Miguel Test Positive Objective HEENT: Atraumatic, bitemporal wasting, dry mucosal membranes, PERRLA NECK: cannot assess JVP, tracheostomy tube in place. HEART: Regular rate and rhythm. Tachycardic. No murmurs, gallops or rubs. Lungs: Bibasilar crackles. ABDOMEN: Soft, NT/ND, + BS. G-tube in place. EXTREMITIES: No edema, clubbing or cyanosis. NEUROLOGIC: Nonresponsive, vegetative state. Davy Estrada MD Oct 15, 2018 21:59
[2018-10-16] VITALS: BP 130/73
--- NOTE | 2018-10-16 | NUR ---
NURSE NOTES: Patient repositioned and provided oral hygiene, temperature is now 97.6F. Other vitals remains stable. Will continue to monitor.
[2018-10-16] MEDS: Albuterol/Ipratropium 3ml neb HHN SCH ×4 (01:04→19:48)
[2018-10-16] MEDS: D5NS 1,000 ML IV SCH (01:42)
[2018-10-16 04:00] VITALS: BP 127/73
--- NOTE | 2018-10-16 04:00 | NUR ---
NURSE NOTES: Patient cleaned and repositioned, oral hygiene provided. NAD, Vitals remains stable, new feed and tubing changed.
[2018-10-16] MEDS: Piperacillin/Tazobactam 3.375 GM in NS 110 ML IVPB SCH ×2 (05:00→13:36)
[2018-10-16] MEDS: Hydrocortisone 100mg Inj IV SCH ×3 (05:11→21:53)
--- NOTE | 2018-10-16 06:00 | NUR ---
NURSE NOTES: Patient repositioned, IV lines remains patent and intact, no acute respiratory distress. Patient vitals remains stable. No acute changes over night.
--- NOTE | 2018-10-16 07:11 | NUR ---
HAND-OFF: Report given to Mansi SHARIF.
--- NOTE | 2018-10-16 07:16 | NUR ---
NURSE NOTES: Report received from KOLE Rankin. Observed patient in bed sleeping. Open eyes with touch but non-verbal. Receiving 6L of oxygen via T-piece with no acute distress noted. No s/s of pain at this time. GT site intact and patent with ongoing feeding. HOB elevated. No residual noted. F/C and rectal tube intact and draining well. Bed in lowest position. Call light within reach. Will continue to monitor.
[2018-10-16 07:59] LABS: HEMATOCRIT 22.9 % (42.0-52.0); HEMOGLOBIN 7.4 G/DL (14.2-18.0); MEAN CORPUSCULAR VOLUME 96 FL (80-99); PLATELET COUNT 174 K/UL (150-450); RED BLOOD COUNT 2.39 M/UL (4.70-6.10); RED CELL DISTRIBUTION WIDTH 14.7 % (11.6-14.8); WHITE BLOOD COUNT 9.3 K/UL (4.8-10.8)
[2018-10-16 08:00] VITALS: BP 124/72
[2018-10-16 08:26] LABS: ANION GAP 6 mmol/L (5-15); BLOOD UREA NITROGEN 13 mg/dL (7-18); CALCIUM 8.4 MG/DL (8.5-10.1); CARBON DIOXIDE 33 MMOL/L (21-32); CHLORIDE 107 MMOL/L (98-107); CREATININE 0.7 MG/DL (0.55-1.30); SODIUM 146 MMOL/L (136-145)
[2018-10-16 08:30] LABS: POTASSIUM 2.2 MMOL/L (3.5-5.1)
[2018-10-16] MEDS: Heparin 5000 units/ml inj SUBQ SCH ×2 (08:33→21:01)
--- NOTE | 2018-10-16 09:00 | NUR ---
NURSE NOTES: Called Dr. Piper regarding low potassium level. MD didn't answer the phone at this time. Will attempt again.
--- NOTE | 2018-10-16 09:35 | Infectious Diseases Prog Note ---
Assessment/Plan Assessment/Plan IMPRESSION: Sepsis with septic shock. Urinary tract infection with E. coli pneumonia, acute renal failure, resolving lactic acidosis, resolving acute on chronic respiratory failure with hypoxemia, anemia, diabetes mellitus. Anemia Diarrhea, C. 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 Hypokalemia P: continue Zosyn x 1day Will f/u cultures Subjective ROS Limited/Unobtainable: Yes Allergies: Coded Allergies: No Known Allergies (Unverified , 10/11/18) Objective Vital Signs Last 24 Hour Vital Signs Date Time Temp Pulse Resp B/P (MAP) Pulse Ox O2 Delivery O2 Flow Rate FiO2 10/16/18 08:20 76 18 99 T-piece 8.0 30 10/16/18 08:15 T-piece 8.0 30 10/16/18 08:15 99 T-piece 8.0 30 10/16/18 08:10 72 18 99 T-piece 8.0 30 10/16/18 08:00 T-piece 10/16/18 08:00 95.5 72 14 124/72 (89) 100 10/16/18 08:00 8.0 30 10/16/18 04:00 99 10/16/18 04:00 97.4 63 24 127/73 (91) 99 10/16/18 04:00 T-piece 10/16/18 04:00 8.0 30 10/16/18 01:15 80 20 98 T-piece 8.0 30 10/16/18 01:11 T-piece 8.0 30 10/16/18 01:10 99 T-piece 8.0 30 10/16/18 01:05 69 18 97 T-piece 8.0 30 10/16/18 00:00 T-piece 10/16/18 00:00 97.6 77 24 130/73 (92) 96 10/15/18 20:00 T-piece 10/15/18 20:00 99.7 82 20 144/77 (99) 98 10/15/18 20:00 79 10/15/18 20:00 8.0 30 10/15/18 19:12 T-piece 8.0 30 10/15/18 19:03 87 20 98 T-piece 8.0 30 10/15/18 18:54 98 20 T-piece 8.0 30 10/15/18 18:54 98 T-piece 8.0 30 10/15/18 18:52 85 18 98 T-piece 8.0 30 10/15/18 16:00 8.0 30 10/15/18 16:00 T-piece 10/15/18 16:00 98.8 85 19 133/76 (95) 98 10/15/18 15:35 87 10/15/18 13:27 95 20 99 T-piece 8.0 30 10/15/18 13:04 T-piece 8.0 30 10/15/18 13:04 99 T-piece 8.0 30 10/15/18 12:59 98 20 98 T-piece 8.0 30 10/15/18 12:00 8.0 30 10/15/18 12:00 T-piece 10/15/18 12:00 99.5 70 17 136/77 (96) 100 10/15/18 11:51 90 Height (Feet): 5 Height (Inches): 7.00 Weight (Pounds): 124 General Appearance: no acute distress HEENT: status post trach Respiratory/Chest: lungs clear Cardiovascular: normal rate, other - R femoral line Abdomen: soft, non tender, other - GT feeding, rectal tube Neurologic/Psychiatric: aphasia Laboratory Tests Test 10/15/18 16:41 10/16/18 04:00 Arterial Blood pH 7.508 (7.350-7.450) Arterial Blood Partial Pressure CO2 36.6 mmHg (35.0-45.0) Arterial Blood Partial Pressure O2 85.5 mmHg (75.0-100.0) Arterial Blood HCO3 28.4 mmol/L (22.0-26.0) H Arterial Blood Oxygen Saturation 96.0 % (95-100) Arterial Blood Base Excess 5.0 (-2-2) H José Miguel Test Positive White Blood Count 9.3 K/UL (4.8-10.8) Red Blood Count 2.39 M/UL (4.70-6.10) L Hemoglobin 7.4 G/DL (14.2-18.0) L Hematocrit 22.9 % (42.0-52.0) L Mean Corpuscular Volume 96 FL (80-99) Mean Corpuscular Hemoglobin 31.2 PG (27.0-31.0) H Mean Corpuscular Hemoglobin Concent 32.5 G/DL (32.0-36.0) Red Cell Distribution Width 14.7 % (11.6-14.8) Platelet Count 174 K/UL (150-450) Mean Platelet Volume 6.0 FL (6.5-10.1) L Neutrophils (%) (Auto) % (45.0-75.0) Lymphocytes (%) (Auto) % (20.0-45.0) Monocytes (%) (Auto) % (1.0-10.0) Eosinophils (%) (Auto) % (0.0-3.0) Basophils (%) (Auto) % (0.0-2.0) Neutrophils % (Manual) Pending Lymphocytes % (Manual) Pending Platelet Estimate Pending Platelet Morphology Pending Sodium Level 146 MMOL/L (136-145) H Potassium Level 2.2 MMOL/L (3.5-5.1) *L Chloride Level 107 MMOL/L (98-107) Carbon Dioxide Level 33 MMOL/L (21-32) H Anion Gap 6 mmol/L (5-15) Blood Urea Nitrogen 13 mg/dL (7-18) Creatinine 0.7 MG/DL (0.55-1.30) Estimat Glomerular Filtration Rate > 60 mL/min (>60) Glucose Level 378 MG/DL (74-106) H Calcium Level 8.4 MG/DL (8.5-10.1) L Current Medications Medications (Trade) Dose Ordered Sig/Last Route PRN Reason Start Time Stop Time Status Last Admin Dose Admin Acetaminophen (Tylenol) 650 mg Q4H PRN RECTAL Prn Headache/Temp > 101 10/15/18 07:00 11/10/18 18:59 Acetylcysteine (Mucomyst) 100 mg TIDRT N 10/15/18 07:00 11/13/18 18:59 10/16/18 08:10 Albuterol/ Ipratropium (Albuterol/ Ipratropium) 3 ml Q4H PRN HHN Shortness of Breath 10/15/18 07:00 10/16/18 18:59 Albuterol/ Ipratropium (Albuterol/ Ipratropium) 3 ml Q6HRT N 10/15/18 07:00 10/19/18 18:59 10/16/18 08:10 Chlorhexidine Gluconate (Petra-Hex 2%) 1 applic DAILY@2000 TOPIC 10/15/18 20:00 11/14/18 19:59 10/15/18 20:08 Dextrose/Sodium Chloride 1,000 ml @ 50 mls/hr Q20H IV 10/15/18 05:30 11/10/18 09:40 10/16/18 01:42 Famotidine (Pepcid I.v.) 20 mg Q12HR IVP 10/15/18 09:00 11/12/18 20:59 10/16/18 08:42 Heparin Sodium (Porcine) (Heparin 5000 units/ml) 5,000 units EVERY 12 HOURS SUBQ 10/15/18 09:00 11/10/18 20:59 10/16/18 08:33 Hydrocortisone (Solu-CORTEF) 50 mg EVERY 8 HOURS IV 10/15/18 06:00 11/10/18 21:59 10/16/18 05:11 Midazolam HCl (Versed 2mg/2ml vial) 2 mg Q4H PRN IVP Agitation 10/15/18 07:00 11/10/18 18:59 Piperacillin Sod/ Tazobactam Sod 3.375 gm/Sodium Chloride 110 ml @ 27.5 mls/hr EVERY 8 HOURS IVPB 10/15/18 06:00 10/16/18 21:59 10/16/18 05:00 Lucas Bravo MD Oct 16, 2018 09:35
[2018-10-16 12:00] VITALS: BP 119/69
--- NOTE | 2018-10-16 12:36 | General Progress Note ---
Assessment/Plan Problem List: (1) Gastrostomy tube dependent ICD Codes: Z93.1 - Gastrostomy status SNOMED: 372511767, 171327149 (2) Anemia ICD Codes: D64.9 - Anemia, unspecified SNOMED: 417546174 (3) Iron deficiency ICD Codes: E61.1 - Iron deficiency SNOMED: 05380459 (4) Feeding by G-tube ICD Codes: Z93.1 - Gastrostomy status SNOMED: 095518258, 946402560, 255657462 (5) Tracheostomy care ICD Codes: Z43.0 - Encounter for attention to tracheostomy SNOMED: 847920024 (6) Pneumonia ICD Codes: J18.9 - Pneumonia, unspecified organism SNOMED: 462674808 Qualifiers: Qualified Codes: J18.9 - Pneumonia, unspecified organism Assessment/Plan Anemia workup reviewed. Iron deficiency. OB stool negative. G-tube dependent Rectal tube present Cdiff negative G-tube feeding per RD to goal Reglan for GI motility if needed monitor H&H, as needed transfusions Antibiotics venofer No plans for GI procedures unless urgent Follow labs Subjective ROS Limited/Unobtainable: No Allergies: Coded Allergies: No Known Allergies (Unverified , 10/11/18) Objective Last 24 Hour Vital Signs Date Time Temp Pulse Resp B/P (MAP) Pulse Ox O2 Delivery O2 Flow Rate FiO2 10/16/18 12:00 T-piece 10/16/18 12:00 66 10/16/18 12:00 8.0 30 10/16/18 08:20 76 18 99 T-piece 8.0 30 10/16/18 08:15 T-piece 8.0 30 10/16/18 08:15 99 T-piece 8.0 30 10/16/18 08:10 72 18 99 T-piece 8.0 30 10/16/18 08:00 T-piece 10/16/18 08:00 95.5 72 14 124/72 (89) 100 10/16/18 08:00 8.0 30 10/16/18 08:00 62 10/16/18 04:00 99 10/16/18 04:00 97.4 63 24 127/73 (91) 99 10/16/18 04:00 T-piece 10/16/18 04:00 8.0 30 10/16/18 01:15 80 20 98 T-piece 8.0 30 10/16/18 01:11 T-piece 8.0 30 10/16/18 01:10 99 T-piece 8.0 30 10/16/18 01:05 69 18 97 T-piece 8.0 30 10/16/18 00:00 T-piece 10/16/18 00:00 97.6 77 24 130/73 (92) 96 10/15/18 20:00 T-piece 10/15/18 20:00 99.7 82 20 144/77 (99) 98 10/15/18 20:00 79 10/15/18 20:00 8.0 30 10/15/18 19:12 T-piece 8.0 30 10/15/18 19:03 87 20 98 T-piece 8.0 30 10/15/18 18:54 98 20 T-piece 8.0 30 10/15/18 18:54 98 T-piece 8.0 30 10/15/18 18:52 85 18 98 T-piece 8.0 30 10/15/18 16:00 8.0 30 10/15/18 16:00 T-piece 10/15/18 16:00 98.8 85 19 133/76 (95) 98 10/15/18 15:35 87 10/15/18 13:27 95 20 99 T-piece 8.0 30 10/15/18 13:04 T-piece 8.0 30 10/15/18 13:04 99 T-piece 8.0 30 10/15/18 12:59 98 20 98 T-piece 8.0 30 Intake and Output 10/15/18 10/16/18 18:59 06:59 Intake Total 1571.26 ml 1487.5 ml Output Total 1800 ml Balance -228.74 ml 1487.5 ml Intake Free Water 160 ml 200 ml IV Total 811.26 ml 687.5 ml Tube Feeding 600 ml 600 ml Output Urine Total 1200 ml Stool Total 600 ml Laboratory Tests 10/15/18 16:41: Arterial Blood pH 7.508H, Arterial Blood Partial Pressure CO2 36.6, Arterial Blood Partial Pressure O2 85.5, Arterial Blood HCO3 28.4H, Arterial Blood Oxygen Saturation 96.0, Arterial Blood Base Excess 5.0H, José Miguel Test Positive 10/16/18 04:00: White Blood Count 9.3, Red Blood Count 2.39L, Hemoglobin 7.4L, Hematocrit 22.9L , Mean Corpuscular Volume 96, Mean Corpuscular Hemoglobin 31.2H, Mean Corpuscular Hemoglobin Concent 32.5, Red Cell Distribution Width 14.7, Platelet Count 174, Mean Platelet Volume 6.0L, Neutrophils (%) (Auto) , Lymphocytes (%) ( Auto) , Monocytes (%) (Auto) , Eosinophils (%) (Auto) , Basophils (%) (Auto) , Differential Total Cells Counted 100, Neutrophils % (Manual) 73, Lymphocytes % ( Manual) 22, Monocytes % (Manual) 5, Eosinophils % (Manual) 0, Basophils % ( Manual) 0, Band Neutrophils 0, Platelet Estimate Adequate, Platelet Morphology Normal, Hypochromasia 1+, Anisocytosis 1+, Sodium Level 146H, Potassium Level 2.2*L, Chloride Level 107, Carbon Dioxide Level 33H, Anion Gap 6, Blood Urea Nitrogen 13, Creatinine 0.7, Estimat Glomerular Filtration Rate > 60, Glucose Level 378H, Calcium Level 8.4L Height (Feet): 5 Height (Inches): 7.00 Weight (Pounds): 124 General Appearance: lethargic EENT: normal ENT inspection Neck: supple Cardiovascular: tachycardia Respiratory/Chest: decreased breath sounds Abdomen: normal bowel sounds, non tender, soft Extremities: non-tender Gerson Dixon MD Oct 16, 2018 12:36
--- NOTE | 2018-10-16 12:49 | Nephrology Progress Note ---
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 Plan Plan: K Phos IV Pepcid continue the rest DNAR/DNI Comfort care Poor prognosis Subjective ROS Limited/Unobtainable: Yes Objective Objective Last 24 Hour Vital Signs Date Time Temp Pulse Resp B/P (MAP) Pulse Ox O2 Delivery O2 Flow Rate FiO2 10/16/18 12:00 T-piece 10/16/18 12:00 66 10/16/18 12:00 8.0 30 10/16/18 08:20 76 18 99 T-piece 8.0 30 10/16/18 08:15 T-piece 8.0 30 10/16/18 08:15 99 T-piece 8.0 30 10/16/18 08:10 72 18 99 T-piece 8.0 30 10/16/18 08:00 T-piece 10/16/18 08:00 95.5 72 14 124/72 (89) 100 10/16/18 08:00 8.0 30 10/16/18 08:00 62 10/16/18 04:00 99 10/16/18 04:00 97.4 63 24 127/73 (91) 99 10/16/18 04:00 T-piece 10/16/18 04:00 8.0 30 10/16/18 01:15 80 20 98 T-piece 8.0 30 10/16/18 01:11 T-piece 8.0 30 10/16/18 01:10 99 T-piece 8.0 30 10/16/18 01:05 69 18 97 T-piece 8.0 30 10/16/18 00:00 T-piece 10/16/18 00:00 97.6 77 24 130/73 (92) 96 10/15/18 20:00 T-piece 10/15/18 20:00 99.7 82 20 144/77 (99) 98 10/15/18 20:00 79 10/15/18 20:00 8.0 30 10/15/18 19:12 T-piece 8.0 30 10/15/18 19:03 87 20 98 T-piece 8.0 30 10/15/18 18:54 98 20 T-piece 8.0 30 10/15/18 18:54 98 T-piece 8.0 30 10/15/18 18:52 85 18 98 T-piece 8.0 30 10/15/18 16:00 8.0 30 10/15/18 16:00 T-piece 10/15/18 16:00 98.8 85 19 133/76 (95) 98 10/15/18 15:35 87 10/15/18 13:27 95 20 99 T-piece 8.0 30 10/15/18 13:04 T-piece 8.0 30 10/15/18 13:04 99 T-piece 8.0 30 10/15/18 12:59 98 20 98 T-piece 8.0 30 Intake and Output 10/15/18 10/16/18 18:59 06:59 Intake Total 1571.26 ml 1487.5 ml Output Total 1800 ml Balance -228.74 ml 1487.5 ml Intake Free Water 160 ml 200 ml IV Total 811.26 ml 687.5 ml Tube Feeding 600 ml 600 ml Output Urine Total 1200 ml Stool Total 600 ml Laboratory Tests 10/15/18 16:41: Arterial Blood pH 7.508H, Arterial Blood Partial Pressure CO2 36.6, Arterial Blood Partial Pressure O2 85.5, Arterial Blood HCO3 28.4H, Arterial Blood Oxygen Saturation 96.0, Arterial Blood Base Excess 5.0H, José Miguel Test Positive 10/16/18 04:00: White Blood Count 9.3, Red Blood Count 2.39L, Hemoglobin 7.4L, Hematocrit 22.9L , Mean Corpuscular Volume 96, Mean Corpuscular Hemoglobin 31.2H, Mean Corpuscular Hemoglobin Concent 32.5, Red Cell Distribution Width 14.7, Platelet Count 174, Mean Platelet Volume 6.0L, Neutrophils (%) (Auto) , Lymphocytes (%) ( Auto) , Monocytes (%) (Auto) , Eosinophils (%) (Auto) , Basophils (%) (Auto) , Differential Total Cells Counted 100, Neutrophils % (Manual) 73, Lymphocytes % ( Manual) 22, Monocytes % (Manual) 5, Eosinophils % (Manual) 0, Basophils % ( Manual) 0, Band Neutrophils 0, Platelet Estimate Adequate, Platelet Morphology Normal, Hypochromasia 1+, Anisocytosis 1+, Sodium Level 146H, Potassium Level 2.2*L, Chloride Level 107, Carbon Dioxide Level 33H, Anion Gap 6, Blood Urea Nitrogen 13, Creatinine 0.7, Estimat Glomerular Filtration Rate > 60, Glucose Level 378H, Calcium Level 8.4L Height (Feet): 5 Height (Inches): 7.00 Weight (Pounds): 124 General Appearance: no apparent distress Objective no change Clint Piper MD Oct 16, 2018 12:49
--- NOTE | 2018-10-16 13:29 | General Progress Note ---
Assessment/Plan Problem List: (1) Cerebral infarction ICD Codes: I63.9 - Cerebral infarction, unspecified SNOMED: 580321479 (2) Renal failure ICD Codes: N19 - Unspecified kidney failure SNOMED: 23635477 Qualifiers: Qualified Codes: N17.9 - Acute kidney failure, unspecified (3) Encephalopathy ICD Codes: G93.40 - Encephalopathy, unspecified SNOMED: 89130594 (4) Lactic acid acidosis ICD Codes: E87.2 - Acidosis SNOMED: 48751458 (5) Tracheostomy care ICD Codes: Z43.0 - Encounter for attention to tracheostomy SNOMED: 921753556 (6) LUZ MARIA (acute kidney injury) ICD Codes: N17.9 - Acute kidney failure, unspecified SNOMED: 10337740 (7) DNAR (do not attempt resuscitation) ICD Codes: Z66 - Do not resuscitate SNOMED: 708887831 (8) Dehydration ICD Codes: E86.0 - Dehydration SNOMED: 73260862 (9) Iron deficiency ICD Codes: E61.1 - Iron deficiency SNOMED: 00463065 Status: progressing Assessment/Plan renal failure afebrile no change have reemphasized to team to go w dopa decsion and do comfort care and honor dpoa request very congested resp failure trach Subjective ROS Limited/Unobtainable: Yes Allergies: Coded Allergies: No Known Allergies (Unverified , 10/11/18) Objective Last 24 Hour Vital Signs Date Time Temp Pulse Resp B/P (MAP) Pulse Ox O2 Delivery O2 Flow Rate FiO2 10/16/18 12:00 T-piece 10/16/18 12:00 66 10/16/18 12:00 8.0 30 10/16/18 08:20 76 18 99 T-piece 8.0 30 10/16/18 08:15 T-piece 8.0 30 10/16/18 08:15 99 T-piece 8.0 30 10/16/18 08:10 72 18 99 T-piece 8.0 30 10/16/18 08:00 T-piece 10/16/18 08:00 95.5 72 14 124/72 (89) 100 10/16/18 08:00 8.0 30 10/16/18 08:00 62 10/16/18 04:00 99 10/16/18 04:00 97.4 63 24 127/73 (91) 99 10/16/18 04:00 T-piece 10/16/18 04:00 8.0 30 10/16/18 01:15 80 20 98 T-piece 8.0 30 10/16/18 01:11 T-piece 8.0 30 10/16/18 01:10 99 T-piece 8.0 30 10/16/18 01:05 69 18 97 T-piece 8.0 30 10/16/18 00:00 T-piece 10/16/18 00:00 97.6 77 24 130/73 (92) 96 10/15/18 20:00 T-piece 10/15/18 20:00 99.7 82 20 144/77 (99) 98 10/15/18 20:00 79 10/15/18 20:00 8.0 30 10/15/18 19:12 T-piece 8.0 30 10/15/18 19:03 87 20 98 T-piece 8.0 30 10/15/18 18:54 98 20 T-piece 8.0 30 10/15/18 18:54 98 T-piece 8.0 30 10/15/18 18:52 85 18 98 T-piece 8.0 30 10/15/18 16:00 8.0 30 10/15/18 16:00 T-piece 10/15/18 16:00 98.8 85 19 133/76 (95) 98 10/15/18 15:35 87 Intake and Output 10/15/18 10/16/18 18:59 06:59 Intake Total 1571.26 ml 1487.5 ml Output Total 1800 ml Balance -228.74 ml 1487.5 ml Intake Free Water 160 ml 200 ml IV Total 811.26 ml 687.5 ml Tube Feeding 600 ml 600 ml Output Urine Total 1200 ml Stool Total 600 ml Laboratory Tests 10/15/18 16:41: Arterial Blood pH 7.508H, Arterial Blood Partial Pressure CO2 36.6, Arterial Blood Partial Pressure O2 85.5, Arterial Blood HCO3 28.4H, Arterial Blood Oxygen Saturation 96.0, Arterial Blood Base Excess 5.0H, José Miguel Test Positive 10/16/18 04:00: White Blood Count 9.3, Red Blood Count 2.39L, Hemoglobin 7.4L, Hematocrit 22.9L , Mean Corpuscular Volume 96, Mean Corpuscular Hemoglobin 31.2H, Mean Corpuscular Hemoglobin Concent 32.5, Red Cell Distribution Width 14.7, Platelet Count 174, Mean Platelet Volume 6.0L, Neutrophils (%) (Auto) , Lymphocytes (%) ( Auto) , Monocytes (%) (Auto) , Eosinophils (%) (Auto) , Basophils (%) (Auto) , Differential Total Cells Counted 100, Neutrophils % (Manual) 73, Lymphocytes % ( Manual) 22, Monocytes % (Manual) 5, Eosinophils % (Manual) 0, Basophils % ( Manual) 0, Band Neutrophils 0, Platelet Estimate Adequate, Platelet Morphology Normal, Hypochromasia 1+, Anisocytosis 1+, Sodium Level 146H, Potassium Level 2.2*L, Chloride Level 107, Carbon Dioxide Level 33H, Anion Gap 6, Blood Urea Nitrogen 13, Creatinine 0.7, Estimat Glomerular Filtration Rate > 60, Glucose Level 378H, Calcium Level 8.4L Height (Feet): 5 Height (Inches): 7.00 Weight (Pounds): 124 Cardiovascular: normal rate Abdomen: normal bowel sounds, soft Lula Aaron MD Oct 16, 2018 13:29
[2018-10-16] MEDS: Acetylcysteine 20% Soln 4ml HHN SCH ×2 (13:58→19:48)
--- NOTE | 2018-10-16 14:35 | NUR ---
RD ASSESSMENT & RECOMMENDATIONS SEE CARE ACTIVITY FOR COMPLETE ASSESSMENT DAILY ESTIMATED NEEDS: Needs based on Critical care, wound 57.7kg 22-30 kcals/kg 4498-1568 total kcals 1.25-2 g protein/kg 72-115 g total protein 25-30 mL/kg 6417-3460 total fluid mLs NUTRITION DIAGNOSIS: 1) Swallowing difficulty r/t respiratory status as evidenced by pt is vent dep via trach, PEg dep for all nutritional needs 2) Increased kcal and protein needs r/t wound healing and underweight status as evidenced by pt w/ stage 2 sacral wound, pt is 86% Forrest Body Weight w/ generalized mild to moderate wasting. CURRENT TF: Vital AF 1.2 @50ml/hr x24 hrs ENTERAL NUTRITION RECOMMENDATIONS: VITAL AF 1.2 @50ml/hr x24 hrs to provide 1200ml, 1440 kcal (25kcal/kg), 90g prot (1.55g/kg), 973ml free H2O - Maintain Vital AF 1.2 @goal as tolerated to meets 100% est needs - Flush per MD. HOB over 30 degrees ADDITIONAL RECOMMENDATIONS: 1) RE-calibrate bed scale w/ added P200 mattress + pump 2) Monitor BG, lytes daily w/ TF 3) Wound care: add JANUARY BID 4) Feed w/ hemodynamic stability, otherwise trophic feeds- gut integrity 5) Hypoglycemic agents/ per MD for BG control (A1C 9.1)
--- NOTE | 2018-10-16 15:04 | Pulmonology Progress Note ---
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 Respiratory: monitor respiratory rate, other - HHN's, NAC Cardiac: stop pressors, continue to monitor HR/BP, other - Dec HC to 50 IV TID Renal: keep IV fluid, check electrolytes Infectious Disease: continue antibiotics - Zosyn per ID Gastrointestinal: continue feedings/current rate, other Endocrine: monitor blood sugar Hematologic: monitor H/H - transfuse PRN Hb < 7 Prophylaxis: Protonix, Heparin Disposition: KATLYN Time Spent (Minutes): 30 Notes 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 Complete 10/12/18 04:00 Stool Clostridium difficile Toxin Assay - Final Complete 10/11/18 15:00 Urine,Clean Catch Urine Culture - Final Escherichia Coli Complete 10/11/18 16:15 Rectum VRE Culture - Final Enterococcus Faecalis - Vre Enterococcus Faecium - Vre Complete Labs: Laboratory Tests Test 10/13/18 19:55 10/14/18 04:00 Vancomycin Level Trough 8.3 ug/mL (5.0-12.0) White Blood Count 16.6 K/UL (4.8-10.8) H Red Blood Count 2.18 M/UL (4.70-6.10) L Hemoglobin 7.0 G/DL (14.2-18.0) L Hematocrit 20.4 % (42.0-52.0) L Mean Corpuscular Volume 94 FL (80-99) Mean Corpuscular Hemoglobin 32.0 PG (27.0-31.0) H Mean Corpuscular Hemoglobin Concent 34.2 G/DL (32.0-36.0) Red Cell Distribution Width 14.1 % (11.6-14.8) Platelet Count 196 K/UL (150-450) Mean Platelet Volume 6.3 FL (6.5-10.1) L Neutrophils (%) (Auto) % (45.0-75.0) Lymphocytes (%) (Auto) % (20.0-45.0) Monocytes (%) (Auto) % (1.0-10.0) Eosinophils (%) (Auto) % (0.0-3.0) Basophils (%) (Auto) % (0.0-2.0) Differential Total Cells Counted 100 Neutrophils % (Manual) 90 % (45-75) H Lymphocytes % (Manual) 2 % (20-45) L Monocytes % (Manual) 3 % (1-10) Eosinophils % (Manual) 0 % (0-3) Basophils % (Manual) 0 % (0-2) Band Neutrophils 5 % (0-8) Platelet Estimate Adequate Platelet Morphology Normal Anisocytosis 1+ Dundas Cells 1+ Sodium Level 139 MMOL/L (136-145) Potassium Level 3.2 MMOL/L (3.5-5.1) L Chloride Level 105 MMOL/L (98-107) Carbon Dioxide Level 23 MMOL/L (21-32) Anion Gap 11 mmol/L (5-15) Blood Urea Nitrogen 16 mg/dL (7-18) Creatinine 0.8 MG/DL (0.55-1.30) Estimat Glomerular Filtration Rate > 60 mL/min (>60) Glucose Level 293 MG/DL (74-106) H Calcium Level 8.3 MG/DL (8.5-10.1) L Total Bilirubin 0.1 MG/DL (0.2-1.0) L Aspartate Amino Transf (AST/SGOT) 27 U/L (15-37) Alanine Aminotransferase (ALT/SGPT) 31 U/L (12-78) Alkaline Phosphatase 98 U/L (46-116) Total Protein 6.0 G/DL (6.4-8.2) L Albumin 1.7 G/DL (3.4-5.0) L Globulin 4.3 g/dL Albumin/Globulin Ratio 0.4 (1.0-2.7) L Subjective ROS Limited/Unobtainable: No Allergies: Coded Allergies: No Known Allergies (Unverified , 10/11/18) Objective Last 24 Hour Vital Signs Date Time Temp Pulse Resp B/P (MAP) Pulse Ox O2 Delivery O2 Flow Rate FiO2 10/16/18 13:58 66 20 100 T-piece 8.0 30 10/16/18 13:58 T-piece 8.0 30 10/16/18 13:57 99 T-piece 8.0 30 10/16/18 12:00 T-piece 10/16/18 12:00 66 10/16/18 12:00 8.0 30 10/16/18 12:00 97.4 69 14 119/69 (86) 99 10/16/18 08:20 76 18 99 T-piece 8.0 30 10/16/18 08:15 T-piece 8.0 30 10/16/18 08:15 99 T-piece 8.0 30 10/16/18 08:10 72 18 99 T-piece 8.0 30 10/16/18 08:00 T-piece 10/16/18 08:00 95.5 72 14 124/72 (89) 100 10/16/18 08:00 8.0 30 10/16/18 08:00 62 10/16/18 04:00 99 10/16/18 04:00 97.4 63 24 127/73 (91) 99 10/16/18 04:00 T-piece 10/16/18 04:00 8.0 30 10/16/18 01:15 80 20 98 T-piece 8.0 30 10/16/18 01:11 T-piece 8.0 30 10/16/18 01:10 99 T-piece 8.0 30 10/16/18 01:05 69 18 97 T-piece 8.0 30 10/16/18 00:00 T-piece 10/16/18 00:00 97.6 77 24 130/73 (92) 96 10/15/18 20:00 T-piece 10/15/18 20:00 99.7 82 20 144/77 (99) 98 10/15/18 20:00 79 10/15/18 20:00 8.0 30 10/15/18 19:12 T-piece 8.0 30 10/15/18 19:03 87 20 98 T-piece 8.0 30 10/15/18 18:54 98 20 T-piece 8.0 30 10/15/18 18:54 98 T-piece 8.0 30 10/15/18 18:52 85 18 98 T-piece 8.0 30 10/15/18 16:00 8.0 30 10/15/18 16:00 T-piece 10/15/18 16:00 98.8 85 19 133/76 (95) 98 10/15/18 15:35 87 Intake and Output 10/15/18 10/16/18 19:00 07:00 Intake Total 1543.76 ml 1515.0 ml Output Total 1800 ml Balance -256.24 ml 1515.0 ml Intake Free Water 160 ml 200 ml IV Total 783.76 ml 715.0 ml Tube Feeding 600 ml 600 ml Output Urine Total 1200 ml Stool Total 600 ml Laboratory Tests 10/15/18 16:41: Arterial Blood pH 7.508H, Arterial Blood Partial Pressure CO2 36.6, Arterial Blood Partial Pressure O2 85.5, Arterial Blood HCO3 28.4H, Arterial Blood Oxygen Saturation 96.0, Arterial Blood Base Excess 5.0H, José Miguel Test Positive 10/16/18 04:00: White Blood Count 9.3, Red Blood Count 2.39L, Hemoglobin 7.4L, Hematocrit 22.9L , Mean Corpuscular Volume 96, Mean Corpuscular Hemoglobin 31.2H, Mean Corpuscular Hemoglobin Concent 32.5, Red Cell Distribution Width 14.7, Platelet Count 174, Mean Platelet Volume 6.0L, Neutrophils (%) (Auto) , Lymphocytes (%) ( Auto) , Monocytes (%) (Auto) , Eosinophils (%) (Auto) , Basophils (%) (Auto) , Differential Total Cells Counted 100, Neutrophils % (Manual) 73, Lymphocytes % ( Manual) 22, Monocytes % (Manual) 5, Eosinophils % (Manual) 0, Basophils % ( Manual) 0, Band Neutrophils 0, Platelet Estimate Adequate, Platelet Morphology Normal, Hypochromasia 1+, Anisocytosis 1+, Sodium Level 146H, Potassium Level 2.2*L, Chloride Level 107, Carbon Dioxide Level 33H, Anion Gap 6, Blood Urea Nitrogen 13, Creatinine 0.7, Estimat Glomerular Filtration Rate > 60, Glucose Level 378H, Calcium Level 8.4L Current Medications Medications (Trade) Dose Ordered Sig/Last Route PRN Reason Start Time Stop Time Status Last Admin Dose Admin Acetaminophen (Tylenol) 650 mg Q4H PRN RECTAL Prn Headache/Temp > 101 10/15/18 07:00 11/10/18 18:59 Acetylcysteine (Mucomyst) 100 mg TIDRT HHN 10/16/18 13:00 11/15/18 12:59 10/16/18 13:58 Albuterol/ Ipratropium (Albuterol/ Ipratropium) 3 ml Q4H PRN HHN Shortness of Breath 10/15/18 07:00 10/16/18 18:59 Albuterol/ Ipratropium (Albuterol/ Ipratropium) 3 ml Q6HRT HHN 10/15/18 07:00 10/19/18 18:59 10/16/18 13:58 Chlorhexidine Gluconate (Petra-Hex 2%) 1 applic DAILY@2000 TOPIC 10/15/18 20:00 11/14/18 19:59 10/15/18 20:08 Famotidine (Pepcid I.v.) 20 mg Q12HR IVP 10/15/18 09:00 11/12/18 20:59 10/16/18 08:42 Heparin Sodium (Porcine) (Heparin 5000 units/ml) 5,000 units EVERY 12 HOURS SUBQ 10/15/18 09:00 11/10/18 20:59 10/16/18 08:33 Hydrocortisone (Solu-CORTEF) 50 mg EVERY 8 HOURS IV 10/15/18 06:00 11/10/18 21:59 10/16/18 13:21 Piperacillin Sod/ Tazobactam Sod 3.375 gm/Sodium Chloride 110 ml @ 27.5 mls/hr EVERY 8 HOURS IVPB 10/15/18 06:00 10/16/18 21:59 10/16/18 13:36 Potassium Chloride 100 ml @ 100 mls/hr Q1H IVPB 10/16/18 12:00 10/16/18 17:59 10/16/18 13:22 Potassium Chloride (K-Dur) 40 meq TWICE A DAY GT 10/16/18 18:00 11/15/18 17:59 Jorge A Kay MD Oct 16, 2018 15:04
--- NOTE | 2018-10-16 15:49 | Surgery Progress Note ---
Surgery Progress Note Subjective Additional Comments no acute events. unchanged. labs noted. Objective Last 24 Hour Vital Signs Date Time Temp Pulse Resp B/P (MAP) Pulse Ox O2 Delivery O2 Flow Rate FiO2 10/16/18 13:58 66 20 100 T-piece 8.0 30 10/16/18 13:58 T-piece 8.0 30 10/16/18 13:57 99 T-piece 8.0 30 10/16/18 12:00 T-piece 10/16/18 12:00 66 10/16/18 12:00 8.0 30 10/16/18 12:00 97.4 69 14 119/69 (86) 99 10/16/18 08:20 76 18 99 T-piece 8.0 30 10/16/18 08:15 T-piece 8.0 30 10/16/18 08:15 99 T-piece 8.0 30 10/16/18 08:10 72 18 99 T-piece 8.0 30 10/16/18 08:00 T-piece 10/16/18 08:00 95.5 72 14 124/72 (89) 100 10/16/18 08:00 8.0 30 10/16/18 08:00 62 10/16/18 04:00 99 10/16/18 04:00 97.4 63 24 127/73 (91) 99 10/16/18 04:00 T-piece 10/16/18 04:00 8.0 30 10/16/18 01:15 80 20 98 T-piece 8.0 30 10/16/18 01:11 T-piece 8.0 30 10/16/18 01:10 99 T-piece 8.0 30 10/16/18 01:05 69 18 97 T-piece 8.0 30 10/16/18 00:00 T-piece 10/16/18 00:00 97.6 77 24 130/73 (92) 96 10/15/18 20:00 T-piece 10/15/18 20:00 99.7 82 20 144/77 (99) 98 10/15/18 20:00 79 10/15/18 20:00 8.0 30 10/15/18 19:12 T-piece 8.0 30 10/15/18 19:03 87 20 98 T-piece 8.0 30 2/16/19 18:54 98 20 T-piece 8.0 30 10/15/18 18:54 98 T-piece 8.0 30 10/15/18 18:52 85 18 98 T-piece 8.0 30 10/15/18 16:00 8.0 30 10/15/18 16:00 T-piece 10/15/18 16:00 98.8 85 19 133/76 (95) 98 I&O Intake and Output 10/15/18 10/16/18 18:59 06:59 Intake Total 1571.26 ml 1487.5 ml Output Total 1800 ml Balance -228.74 ml 1487.5 ml Intake Free Water 160 ml 200 ml IV Total 811.26 ml 687.5 ml Tube Feeding 600 ml 600 ml Output Urine Total 1200 ml Stool Total 600 ml Dressing: other Wound: other Drains: other Cardiovascular: RSR Respiratory: clear Abdomen: soft, present bowel sounds, non-distended Extremities: other Laboratory Tests Test 10/15/18 16:41 10/16/18 04:00 Arterial Blood pH 7.508 (7.350-7.450) Arterial Blood Partial Pressure CO2 36.6 mmHg (35.0-45.0) Arterial Blood Partial Pressure O2 85.5 mmHg (75.0-100.0) Arterial Blood HCO3 28.4 mmol/L (22.0-26.0) H Arterial Blood Oxygen Saturation 96.0 % (95-100) Arterial Blood Base Excess 5.0 (-2-2) H José Miguel Test Positive White Blood Count 9.3 K/UL (4.8-10.8) Red Blood Count 2.39 M/UL (4.70-6.10) L Hemoglobin 7.4 G/DL (14.2-18.0) L Hematocrit 22.9 % (42.0-52.0) L Mean Corpuscular Volume 96 FL (80-99) Mean Corpuscular Hemoglobin 31.2 PG (27.0-31.0) H Mean Corpuscular Hemoglobin Concent 32.5 G/DL (32.0-36.0) Red Cell Distribution Width 14.7 % (11.6-14.8) Platelet Count 174 K/UL (150-450) Mean Platelet Volume 6.0 FL (6.5-10.1) L Neutrophils (%) (Auto) % (45.0-75.0) Lymphocytes (%) (Auto) % (20.0-45.0) Monocytes (%) (Auto) % (1.0-10.0) Eosinophils (%) (Auto) % (0.0-3.0) Basophils (%) (Auto) % (0.0-2.0) Differential Total Cells Counted 100 Neutrophils % (Manual) 73 % (45-75) Lymphocytes % (Manual) 22 % (20-45) Monocytes % (Manual) 5 % (1-10) Eosinophils % (Manual) 0 % (0-3) Basophils % (Manual) 0 % (0-2) Band Neutrophils 0 % (0-8) Platelet Estimate Adequate Platelet Morphology Normal Hypochromasia 1+ Anisocytosis 1+ Sodium Level 146 MMOL/L (136-145) H Potassium Level 2.2 MMOL/L (3.5-5.1) *L Chloride Level 107 MMOL/L (98-107) Carbon Dioxide Level 33 MMOL/L (21-32) H Anion Gap 6 mmol/L (5-15) Blood Urea Nitrogen 13 mg/dL (7-18) Creatinine 0.7 MG/DL (0.55-1.30) Estimat Glomerular Filtration Rate > 60 mL/min (>60) Glucose Level 378 MG/DL (74-106) H Calcium Level 8.4 MG/DL (8.5-10.1) L Plan Problems: (1) Severe sepsis Assessment & Plan: leukocytosis resolving labs noted still uncontrolled glucose uop dvt ppx (2) Multiple wounds Assessment & Plan: Pt presents with partial thickness pressure injuries to R and L gluteal clefts and an area at sacrococcygeal that is dark and indurated. Wounds present on admission. L buttocks partial thickness wound moist and viable .Edges adherent and flat .Non-blanchable erythema periwound. (L)3.9cm x (W)3.5cm. R gluteal cleft partial thickness pressure injury.Wound bed moist and viable.edges adhrent and flat .Non-blanchable erythema periwound (L)0.4cm x (W) 0.5cm. Bilat heels boggy but blanchable. Non-blanchable erythema noted to lateral R heel. Tx.Plan: Apply Moisture Barrier Paste to R and L buttocks .Cover with Optifoam drsg .Change daily and prn. Apply Cavilon Skin Barrier to R and L heels and Malleoli.Cover each site with Optifoam drsgs .Change every 7 days and PRN. APM/CLINT mattress. Reposition at least every 2hours or as tolerated. Off-load heels with pillow. Monroe Reynaga Oct 16, 2018 15:49
[2018-10-16 16:00] VITALS: BP 119/66
--- NOTE | 2018-10-16 19:25 | NUR ---
HAND-OFF: Report given to KOLE Phillips. Stable condition.
--- NOTE | 2018-10-16 19:52 | NUR ---
NURSE NOTES: RECEIVED PATIENT RESTING IN BED, NON VERBAL, OPENS EYES. O2 AT 8L VIA T-PIECE, NO SIGNS OF DISTRESS NOTED. FALL AND ASPIRATION PRECAUTIONS IN PLACE: CALL LIGHT WITHIN REACH, BED IN LOW PSITION AND BED ALARM ON, HOB ELEVATED. WILL CONTINUE WITH PLAN OF CARE.
--- NOTE | 2018-10-16 19:59 | NUR ---
RESPIRATORY NOTE: Trach patient received on Cool Aerosol 30% at 8L. Patient has size 6.0 Shiley with cuff deflated that is secure with a trach tie and guard. Patients presents with bilateral coarse breath sounds and moderate amount of thick white/yellow secretions were suctioned via inline suction system without incident. There are no signs/symptoms of shortness of breath or respiratory distress at this time. Corrugated tubing and water reservoir was drained and aerosol bottle replaced. Trach care done and inline suction system replaced. Patient sats 98% and appears comfortable at this time. Will continue to monitor.
[2018-10-16 20:00] VITALS: BP 132/75
[2018-10-16] MEDS: Dyna-Hex 2% Top Sol 2oz TOPIC SCH (20:56)
--- NOTE | 2018-10-16 23:55 | Cardiology Progress Note ---
Assessment/Plan Assessment/Plan 1. Septic shock,resolved, due to B/L pneumonia. 2. Dyspnea due to B/L pneumonia, 2D echo revealing + wall motion abnormalities in the septal wall, ? ischemic CM, LVEF ~45%. 3. CVA with severe debilitation, consider ASA and statins. 4. Dysphagia, s/p PEG placement. 5. VDRF, s/p tracheostomy placement. Subjective Subjective Sinus rhythm at rate of 77. On T-piece, FiO2 30%. Objective Last 24 Hour Vital Signs Date Time Temp Pulse Resp B/P (MAP) Pulse Ox O2 Delivery O2 Flow Rate FiO2 10/16/18 20:00 T-piece 10/16/18 19:58 77 20 100 T-piece 8.0 30 10/16/18 19:48 T-piece 8.0 30 10/16/18 19:48 75 20 98 T-piece 8.0 30 10/16/18 19:47 99 T-piece 8.0 30 10/16/18 16:00 T-piece 10/16/18 16:00 8.0 30 10/16/18 16:00 71 10/16/18 16:00 97.6 80 15 119/66 (83) 100 10/16/18 14:08 69 20 100 T-piece 8.0 30 10/16/18 13:58 66 20 100 T-piece 8.0 30 10/16/18 13:58 T-piece 8.0 30 10/16/18 13:57 99 T-piece 8.0 30 10/16/18 12:00 T-piece 10/16/18 12:00 66 10/16/18 12:00 8.0 30 10/16/18 12:00 97.4 69 14 119/69 (86) 99 10/16/18 08:20 76 18 99 T-piece 8.0 30 10/16/18 08:15 T-piece 8.0 30 10/16/18 08:15 99 T-piece 8.0 30 10/16/18 08:10 72 18 99 T-piece 8.0 30 10/16/18 08:00 T-piece 10/16/18 08:00 95.5 72 14 124/72 (89) 100 10/16/18 08:00 8.0 30 10/16/18 08:00 62 10/16/18 04:00 99 10/16/18 04:00 97.4 63 24 127/73 (91) 99 10/16/18 04:00 T-piece 10/16/18 04:00 8.0 30 10/16/18 01:15 80 20 98 T-piece 8.0 30 10/16/18 01:11 T-piece 8.0 30 10/16/18 01:10 99 T-piece 8.0 30 10/16/18 01:05 69 18 97 T-piece 8.0 30 10/16/18 00:00 T-piece 10/16/18 00:00 97.6 77 24 130/73 (92) 96 Intake and Output 10/15/18 10/16/18 19:00 07:00 Intake Total 1543.76 ml 1515.0 ml Output Total 1800 ml Balance -256.24 ml 1515.0 ml Intake Free Water 160 ml 200 ml IV Total 783.76 ml 715.0 ml Tube Feeding 600 ml 600 ml Output Urine Total 1200 ml Stool Total 600 ml 2D Echo: LVEF 45%, Septal wall hypokinesia, Grade I LVDD Laboratory Tests Test 10/16/18 04:00 White Blood Count 9.3 K/UL (4.8-10.8) Red Blood Count 2.39 M/UL (4.70-6.10) L Hemoglobin 7.4 G/DL (14.2-18.0) L Hematocrit 22.9 % (42.0-52.0) L Mean Corpuscular Volume 96 FL (80-99) Mean Corpuscular Hemoglobin 31.2 PG (27.0-31.0) H Mean Corpuscular Hemoglobin Concent 32.5 G/DL (32.0-36.0) Red Cell Distribution Width 14.7 % (11.6-14.8) Platelet Count 174 K/UL (150-450) Mean Platelet Volume 6.0 FL (6.5-10.1) L Neutrophils (%) (Auto) % (45.0-75.0) Lymphocytes (%) (Auto) % (20.0-45.0) Monocytes (%) (Auto) % (1.0-10.0) Eosinophils (%) (Auto) % (0.0-3.0) Basophils (%) (Auto) % (0.0-2.0) Differential Total Cells Counted 100 Neutrophils % (Manual) 73 % (45-75) Lymphocytes % (Manual) 22 % (20-45) Monocytes % (Manual) 5 % (1-10) Eosinophils % (Manual) 0 % (0-3) Basophils % (Manual) 0 % (0-2) Band Neutrophils 0 % (0-8) Platelet Estimate Adequate Platelet Morphology Normal Hypochromasia 1+ Anisocytosis 1+ Sodium Level 146 MMOL/L (136-145) H Potassium Level 2.2 MMOL/L (3.5-5.1) *L Chloride Level 107 MMOL/L (98-107) Carbon Dioxide Level 33 MMOL/L (21-32) H Anion Gap 6 mmol/L (5-15) Blood Urea Nitrogen 13 mg/dL (7-18) Creatinine 0.7 MG/DL (0.55-1.30) Estimat Glomerular Filtration Rate > 60 mL/min (>60) Glucose Level 378 MG/DL (74-106) H Calcium Level 8.4 MG/DL (8.5-10.1) L Objective HEENT: Atraumatic, bitemporal wasting, dry mucosal membranes, PERRLA NECK: cannot assess JVP, tracheostomy tube in place. HEART: Regular rate and rhythm. Tachycardic. No murmurs, gallops or rubs. Lungs: Bibasilar crackles. ABDOMEN: Soft, NT/ND, + BS. G-tube in place. EXTREMITIES: No edema, clubbing or cyanosis. NEUROLOGIC: Nonresponsive, vegetative state. Davy Estrada MD Oct 16, 2018 23:55
[2018-10-17] VITALS: BP 127/73
[2018-10-17] MEDS: Albuterol/Ipratropium 3ml neb HHN SCH ×3 (01:01→19:00)
[2018-10-17 04:00] VITALS: BP 136/71
[2018-10-17] MEDS: Hydrocortisone 100mg Inj IV SCH ×2 (05:25→21:20)
--- NOTE | 2018-10-17 06:20 | NUR ---
TRANSFER TO FLOOR: Patient transferred to room 210-1, per hospital bed, accompanied by RN and RT. Report given to Bert Mart RN Belongings and medications given to RN. Family and or S/O informed of transfer.
--- NOTE | 2018-10-17 06:22 | NUR ---
HAND-OFF: Report given to Pablo SHARIF. endorsed plan of care.
[2018-10-17] MEDS ORDERED: Acetaminophen 650 MG SUPP RECTAL PRN (07:30)
[2018-10-17 08:00] VITALS: BP 122/66
--- NOTE | 2018-10-17 08:04 | NUR ---
NURSE NOTES: Patient in supine position, eyes open, bed in lowest position, call light within reach, suction in place, trach tube in place, Castrejon catheter in place, rectal tube in place, side rails up x 3, oygen at 8 liters, in no apparent distress.
[2018-10-17] MEDS: Heparin 5000 units/ml inj SUBQ SCH ×2 (09:06→21:26)
--- NOTE | 2018-10-17 09:51 | GI Progress Note ---
Assessment/Plan Problems: (1) Gastrostomy tube dependent ICD Codes: Z93.1 - Gastrostomy status SNOMED: 752105315, 677667139 (2) Anemia ICD Codes: D64.9 - Anemia, unspecified SNOMED: 831722879 (3) Iron deficiency ICD Codes: E61.1 - Iron deficiency SNOMED: 76262448 (4) Dehydration ICD Codes: E86.0 - Dehydration SNOMED: 21845926 (5) Feeding by G-tube ICD Codes: Z93.1 - Gastrostomy status SNOMED: 609182964, 069399834, 128735319 Status: stable Status Narrative Discussed with Dr. Dixon Assessment/Plan Anemia workup reviewed. Iron deficiency. OB stool negative. G-tube dependent Rectal tube present Cdiff negative G-tube feeding per RD to goal Reglan for GI motility if needed monitor H&H, as needed transfusions Antibiotics venofer No plans for GI procedures unless urgent Follow labs The patient was seen and examined at bedside and all new and available data was reviewed in the patients chart. I agree with the above findings, impression and plan. (Patient seen earlier today. Signature stamp does not reflect patient encounter time.). - Gerson Dixon MD Subjective Subjective limited Objective Last 24 Hour Vital Signs Date Time Temp Pulse Resp B/P (MAP) Pulse Ox O2 Delivery O2 Flow Rate FiO2 10/17/18 08:00 97.1 76 16 122/66 (84) 97 10/17/18 07:05 T-piece 8.0 30 10/17/18 07:05 98 T-piece 8.0 30 10/17/18 07:00 T-piece 8.0 30 10/17/18 07:00 T-piece 8.0 30 10/17/18 04:00 T-piece 10/17/18 04:00 8.0 30 10/17/18 04:00 73 10/17/18 04:00 98.2 75 20 136/71 (92) 98 10/17/18 01:09 78 18 99 T-piece 8.0 30 10/17/18 01:03 99 T-piece 8.0 30 10/17/18 01:03 T-piece 8.0 30 10/17/18 01:01 67 18 99 T-piece 8.0 30 10/17/18 00:00 8.0 30 10/17/18 00:00 74 10/17/18 00:00 98.1 70 18 127/73 (91) 100 10/17/18 00:00 T-piece 10/16/18 20:00 90 10/16/18 20:00 8.0 30 10/16/18 20:00 97.8 81 18 132/75 (94) 99 10/16/18 20:00 T-piece 10/16/18 19:58 77 20 100 T-piece 8.0 30 10/16/18 19:48 T-piece 8.0 30 10/16/18 19:48 75 20 98 T-piece 8.0 30 10/16/18 19:47 99 T-piece 8.0 30 10/16/18 16:00 T-piece 10/16/18 16:00 8.0 30 10/16/18 16:00 71 10/16/18 16:00 97.6 80 15 119/66 (83) 100 10/16/18 14:08 69 20 100 T-piece 8.0 30 10/16/18 13:58 66 20 100 T-piece 8.0 30 10/16/18 13:58 T-piece 8.0 30 10/16/18 13:57 99 T-piece 8.0 30 10/16/18 12:00 T-piece 10/16/18 12:00 66 10/16/18 12:00 8.0 30 10/16/18 12:00 97.4 69 14 119/69 (86) 99 Intake and Output 10/16/18 10/17/18 19:00 07:00 Intake Total 1725.0 ml 720 ml Output Total 2095 ml Balance -370.0 ml 720 ml Intake Free Water 260 ml 170 ml IV Total 865.0 ml Tube Feeding 600 ml 550 ml Output Urine Total 1900 ml Stool Total 195 ml Height (Feet): 5 Height (Inches): 7.00 Weight (Pounds): 123 General Appearance: alert Cardiovascular: normal rate Respiratory/Chest: other - Tracheostomy Abdominal Exam: GT site - Clean dry and intact Gayatri Sofia NP Oct 17, 2018 09:51
--- NOTE | 2018-10-17 10:54 | Infectious Diseases Prog Note ---
Assessment/Plan Assessment/Plan antibiotics : none A 1. e.coli UTI s/p rx 2. leucocytosis resolved 3. respiratory failure 4. diabetes mellitus 5. CHF 6. rectal VRE colonization P 1. continue off antibiotics Subjective ROS Limited/Unobtainable: Yes Allergies: Coded Allergies: No Known Allergies (Unverified , 10/11/18) Objective Vital Signs Last 24 Hour Vital Signs Date Time Temp Pulse Resp B/P (MAP) Pulse Ox O2 Delivery O2 Flow Rate FiO2 10/17/18 09:00 8.0 30 10/17/18 08:00 97.1 76 16 122/66 (84) 97 10/17/18 07:05 T-piece 8.0 30 10/17/18 07:05 98 T-piece 8.0 30 10/17/18 07:00 T-piece 8.0 30 10/17/18 07:00 T-piece 8.0 30 10/17/18 04:00 T-piece 10/17/18 04:00 8.0 30 10/17/18 04:00 73 10/17/18 04:00 98.2 75 20 136/71 (92) 98 10/17/18 01:09 78 18 99 T-piece 8.0 30 10/17/18 01:03 99 T-piece 8.0 30 10/17/18 01:03 T-piece 8.0 30 10/17/18 01:01 67 18 99 T-piece 8.0 30 10/17/18 00:00 8.0 30 10/17/18 00:00 74 10/17/18 00:00 98.1 70 18 127/73 (91) 100 10/17/18 00:00 T-piece 10/16/18 20:00 90 10/16/18 20:00 8.0 30 10/16/18 20:00 97.8 81 18 132/75 (94) 99 10/16/18 20:00 T-piece 10/16/18 19:58 77 20 100 T-piece 8.0 30 10/16/18 19:48 T-piece 8.0 30 10/16/18 19:48 75 20 98 T-piece 8.0 30 10/16/18 19:47 99 T-piece 8.0 30 10/16/18 16:00 T-piece 10/16/18 16:00 8.0 30 10/16/18 16:00 71 10/16/18 16:00 97.6 80 15 119/66 (83) 100 10/16/18 14:08 69 20 100 T-piece 8.0 30 10/16/18 13:58 66 20 100 T-piece 8.0 30 10/16/18 13:58 T-piece 8.0 30 10/16/18 13:57 99 T-piece 8.0 30 10/16/18 12:00 T-piece 10/16/18 12:00 66 10/16/18 12:00 8.0 30 10/16/18 12:00 97.4 69 14 119/69 (86) 99 Height (Feet): 5 Height (Inches): 7.00 Weight (Pounds): 123 HEENT: status post trach Respiratory/Chest: lungs clear Cardiovascular: normal rate, regular rhythm, no gallop/murmur Abdomen: soft, non tender, other - GT Extremities: no edema, other - right groin catheter Current Medications Medications (Trade) Dose Ordered Sig/Last Route PRN Reason Start Time Stop Time Status Last Admin Dose Admin Acetaminophen (Tylenol) 650 mg Q4H PRN RECTAL Prn Headache/Temp > 101 10/17/18 07:30 11/16/18 07:29 Acetylcysteine (Mucomyst) 100 mg TIDRT N 10/17/18 13:00 11/15/18 12:59 Albuterol/ Ipratropium (Albuterol/ Ipratropium) 3 ml Q6HRT N 10/17/18 13:00 10/19/18 12:59 Chlorhexidine Gluconate (Petra-Hex 2%) 1 applic DAILY@1999 TOPIC 10/17/18 20:00 11/14/18 19:59 Famotidine (Pepcid I.v.) 20 mg Q12HR IVP 10/17/18 09:00 11/12/18 20:59 10/17/18 09:06 Heparin Sodium (Porcine) (Heparin 5000 units/ml) 5,000 units EVERY 12 HOURS SUBQ 10/17/18 09:00 11/10/18 20:59 10/17/18 09:06 Hydrocortisone (Solu-CORTEF) 50 mg EVERY 8 HOURS IV 10/17/18 14:00 11/10/18 21:59 Potassium Chloride (K-Dur) 40 meq TWICE A DAY GT 10/17/18 09:00 11/15/18 17:59 10/17/18 08:55 Marilia Alanis MD Oct 17, 2018 10:54
[2018-10-17 12:00] VITALS: BP 138/74
--- NOTE | 2018-10-17 12:34 | Nephrology Progress Note ---
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 Plan Plan: K Phos IV Pepcid continue the rest DNAR/DNI Comfort care Poor prognosis Subjective ROS Limited/Unobtainable: Yes Objective Objective Last 24 Hour Vital Signs Date Time Temp Pulse Resp B/P (MAP) Pulse Ox O2 Delivery O2 Flow Rate FiO2 10/17/18 12:00 8.0 30 10/17/18 12:00 99.0 91 16 138/74 (95) 99 10/17/18 09:00 8.0 30 10/17/18 09:00 Trach Collar 8.0 Trach Collar 8.0 10/17/18 08:00 97.1 76 16 122/66 (84) 97 10/17/18 07:05 T-piece 8.0 30 10/17/18 07:05 98 T-piece 8.0 30 10/17/18 07:00 T-piece 8.0 30 10/17/18 07:00 T-piece 8.0 30 10/17/18 04:00 T-piece 10/17/18 04:00 8.0 30 10/17/18 04:00 73 10/17/18 04:00 98.2 75 20 136/71 (92) 98 10/17/18 01:09 78 18 99 T-piece 8.0 30 10/17/18 01:03 99 T-piece 8.0 30 10/17/18 01:03 T-piece 8.0 30 10/17/18 01:01 67 18 99 T-piece 8.0 30 10/17/18 00:00 8.0 30 10/17/18 00:00 74 10/17/18 00:00 98.1 70 18 127/73 (91) 100 10/17/18 00:00 T-piece 10/16/18 20:00 90 10/16/18 20:00 8.0 30 10/16/18 20:00 97.8 81 18 132/75 (94) 99 10/16/18 20:00 T-piece 10/16/18 19:58 77 20 100 T-piece 8.0 30 10/16/18 19:48 T-piece 8.0 30 10/16/18 19:48 75 20 98 T-piece 8.0 30 10/16/18 19:47 99 T-piece 8.0 30 10/16/18 16:00 T-piece 10/16/18 16:00 8.0 30 10/16/18 16:00 71 10/16/18 16:00 97.6 80 15 119/66 (83) 100 10/16/18 14:08 69 20 100 T-piece 8.0 30 10/16/18 13:58 66 20 100 T-piece 8.0 30 10/16/18 13:58 T-piece 8.0 30 10/16/18 13:57 99 T-piece 8.0 30 Intake and Output 10/16/18 10/17/18 19:00 07:00 Intake Total 1725.0 ml 720 ml Output Total 2095 ml Balance -370.0 ml 720 ml Intake Free Water 260 ml 170 ml IV Total 865.0 ml Tube Feeding 600 ml 550 ml Output Urine Total 1900 ml Stool Total 195 ml Height (Feet): 5 Height (Inches): 7.00 Weight (Pounds): 123 General Appearance: no apparent distress Objective no change Clint Piper MD Oct 17, 2018 12:34
[2018-10-17] MEDS: Acetylcysteine 20% Soln 4ml HHN SCH ×2 (13:53→19:00)
[2018-10-17] MEDS ORDERED: Hydrocortisone 100mg Inj IV SCH (14:00)
--- NOTE | 2018-10-17 14:48 | General Progress Note ---
Assessment/Plan Problem List: (1) Cerebral infarction ICD Codes: I63.9 - Cerebral infarction, unspecified SNOMED: 338124398 (2) Renal failure ICD Codes: N19 - Unspecified kidney failure SNOMED: 91871701 Qualifiers: Qualified Codes: N17.9 - Acute kidney failure, unspecified (3) Encephalopathy ICD Codes: G93.40 - Encephalopathy, unspecified SNOMED: 00534700 (4) Lactic acid acidosis ICD Codes: E87.2 - Acidosis SNOMED: 39019325 (5) Tracheostomy care ICD Codes: Z43.0 - Encounter for attention to tracheostomy SNOMED: 635769137 (6) LUZ MARIA (acute kidney injury) ICD Codes: N17.9 - Acute kidney failure, unspecified SNOMED: 87839743 (7) DNAR (do not attempt resuscitation) ICD Codes: Z66 - Do not resuscitate SNOMED: 793325272 (8) Dehydration ICD Codes: E86.0 - Dehydration SNOMED: 84820531 (9) Iron deficiency ICD Codes: E61.1 - Iron deficiency SNOMED: 34250303 Status: progressing Assessment/Plan cri encephalopathy afebrile no change have reemphasized to team to go w dopa decsion and do comfort care and honor dpoa request congested resp failure trach Subjective ROS Limited/Unobtainable: Yes Allergies: Coded Allergies: No Known Allergies (Unverified , 10/11/18) Objective Last 24 Hour Vital Signs Date Time Temp Pulse Resp B/P (MAP) Pulse Ox O2 Delivery O2 Flow Rate FiO2 10/17/18 14:05 96 18 99 T-piece 8.0 30 10/17/18 14:00 T-piece 8.0 30 10/17/18 14:00 99 T-piece 8.0 30 10/17/18 13:54 99 18 99 T-piece 8.0 30 10/17/18 12:00 89 10/17/18 12:00 8.0 30 10/17/18 12:00 99.0 91 16 138/74 (95) 99 10/17/18 09:00 8.0 30 10/17/18 09:00 Trach Collar 8.0 Trach Collar 8.0 10/17/18 08:00 74 10/17/18 08:00 97.1 76 16 122/66 (84) 97 10/17/18 07:05 T-piece 8.0 30 10/17/18 07:05 98 T-piece 8.0 30 10/17/18 07:00 T-piece 8.0 30 10/17/18 07:00 T-piece 8.0 30 10/17/18 04:00 T-piece 10/17/18 04:00 8.0 30 10/17/18 04:00 73 10/17/18 04:00 98.2 75 20 136/71 (92) 98 10/17/18 01:09 78 18 99 T-piece 8.0 30 10/17/18 01:03 99 T-piece 8.0 30 10/17/18 01:03 T-piece 8.0 30 10/17/18 01:01 67 18 99 T-piece 8.0 30 10/17/18 00:00 8.0 30 10/17/18 00:00 74 10/17/18 00:00 98.1 70 18 127/73 (91) 100 10/17/18 00:00 T-piece 10/16/18 20:00 90 10/16/18 20:00 8.0 30 10/16/18 20:00 97.8 81 18 132/75 (94) 99 10/16/18 20:00 T-piece 10/16/18 19:58 77 20 100 T-piece 8.0 30 10/16/18 19:48 T-piece 8.0 30 10/16/18 19:48 75 20 98 T-piece 8.0 30 10/16/18 19:47 99 T-piece 8.0 30 10/16/18 16:00 T-piece 10/16/18 16:00 8.0 30 10/16/18 16:00 71 10/16/18 16:00 97.6 80 15 119/66 (83) 100 Intake and Output 10/16/18 10/17/18 18:59 06:59 Intake Total 1802.5 ml 770 ml Output Total 2095 ml Balance -292.5 ml 770 ml Intake Free Water 260 ml 170 ml IV Total 942.5 ml Tube Feeding 600 ml 600 ml Output Urine Total 1900 ml Stool Total 195 ml Height (Feet): 5 Height (Inches): 7.00 Weight (Pounds): 123 General Appearance: lethargic, confused Cardiovascular: normal rate Abdomen: soft Lula Aaron MD Oct 17, 2018 14:48
--- NOTE | 2018-10-17 15:05 | Pulmonology Progress Note ---
Assessment/Plan Problems: (1) Cerebral infarction (2) Encephalopathy (3) Severe sepsis (4) Lactic acid acidosis (5) Tracheostomy care (6) Feeding by G-tube (7) DNAR (do not attempt resuscitation) Assessment/Plan -Optimize pulmonary hygiene/mobilize as tolerated -Continue TC -Titrate O2 -HHN's and NAC -TF's as tolerated -Obseve off Abx per ID -Decrease HC to 25 TID and taper -Monitor volumes and renal function -DNAR -Dispo planning Subjective Allergies: Coded Allergies: No Known Allergies (Unverified , 10/11/18) Subjective Stable on floor Sidney TF's, on TC, hemodynamically stable, no sig secretions Objective Last 24 Hour Vital Signs Date Time Temp Pulse Resp B/P (MAP) Pulse Ox O2 Delivery O2 Flow Rate FiO2 10/17/18 14:05 96 18 99 T-piece 8.0 30 10/17/18 14:00 T-piece 8.0 30 10/17/18 14:00 99 T-piece 8.0 30 10/17/18 13:54 99 18 99 T-piece 8.0 30 10/17/18 12:00 89 10/17/18 12:00 8.0 30 10/17/18 12:00 99.0 91 16 138/74 (95) 99 10/17/18 09:00 8.0 30 10/17/18 09:00 Trach Collar 8.0 Trach Collar 8.0 10/17/18 08:00 74 10/17/18 08:00 97.1 76 16 122/66 (84) 97 10/17/18 07:05 T-piece 8.0 30 10/17/18 07:05 98 T-piece 8.0 30 10/17/18 07:00 T-piece 8.0 30 10/17/18 07:00 T-piece 8.0 30 10/17/18 04:00 T-piece 10/17/18 04:00 8.0 30 10/17/18 04:00 73 10/17/18 04:00 98.2 75 20 136/71 (92) 98 10/17/18 01:09 78 18 99 T-piece 8.0 30 10/17/18 01:03 99 T-piece 8.0 30 10/17/18 01:03 T-piece 8.0 30 10/17/18 01:01 67 18 99 T-piece 8.0 30 10/17/18 00:00 8.0 30 10/17/18 00:00 74 10/17/18 00:00 98.1 70 18 127/73 (91) 100 10/17/18 00:00 T-piece 10/16/18 20:00 90 10/16/18 20:00 8.0 30 10/16/18 20:00 97.8 81 18 132/75 (94) 99 10/16/18 20:00 T-piece 10/16/18 19:58 77 20 100 T-piece 8.0 30 10/16/18 19:48 T-piece 8.0 30 10/16/18 19:48 75 20 98 T-piece 8.0 30 10/16/18 19:47 99 T-piece 8.0 30 10/16/18 16:00 T-piece 10/16/18 16:00 8.0 30 10/16/18 16:00 71 10/16/18 16:00 97.6 80 15 119/66 (83) 100 Intake and Output 10/16/18 10/17/18 19:00 07:00 Intake Total 1725.0 ml 820 ml Output Total 2095 ml Balance -370.0 ml 820 ml Intake Free Water 260 ml 220 ml IV Total 865.0 ml Tube Feeding 600 ml 600 ml Output Urine Total 1900 ml Stool Total 195 ml General Appearance: cachetic, other - non-verbal HEENT: normocephalic, atraumatic, anicteric, mucous membranes moist, status post trach Respiratory/Chest: chest wall non-tender, lungs clear, normal breath sounds, no respiratory distress, no accessory muscle use Cardiovascular: normal peripheral pulses, normal rate, regular rhythm Abdomen: normal bowel sounds, soft, non tender, no organomegaly, non distended , no mass, other - GT Extremities: no cyanosis, no clubbing, no edema Current Medications Medications (Trade) Dose Ordered Sig/Last Route PRN Reason Start Time Stop Time Status Last Admin Dose Admin Acetaminophen (Tylenol) 650 mg Q4H PRN RECTAL Prn Headache/Temp > 101 10/17/18 07:30 11/16/18 07:29 Acetylcysteine (Mucomyst) 100 mg TIDRT HHN 10/17/18 13:00 11/15/18 12:59 10/17/18 13:53 Albuterol/ Ipratropium (Albuterol/ Ipratropium) 3 ml Q6HRT [facility] 10/17/18 13:00 10/19/18 12:59 10/17/18 13:52 Chlorhexidine Gluconate (Petra-Hex 2%) 1 applic DAILY@2000 TOPIC 10/17/18 20:00 11/14/18 19:59 Famotidine (Pepcid I.v.) 20 mg Q12HR IVP 10/17/18 09:00 11/12/18 20:59 10/17/18 09:06 Heparin Sodium (Porcine) (Heparin 5000 units/ml) 5,000 units EVERY 12 HOURS SUBQ 10/17/18 09:00 11/10/18 20:59 10/17/18 09:06 Hydrocortisone (Solu-CORTEF) 25 mg EVERY 8 HOURS IV 10/17/18 22:00 11/10/18 21:59 UNV Potassium Chloride (K-Dur) 40 meq TWICE A DAY GT 10/17/18 09:00 11/15/18 17:59 10/17/18 08:55 Jordy Lou MD Oct 17, 2018 15:05
[2018-10-17 16:00] VITALS: BP 123/87
--- NOTE | 2018-10-17 16:08 | Surgery Progress Note ---
Surgery Progress Note Subjective Additional Comments leukocytosis resolved. potassium low. labs noted. otherwise unchanged. Objective Last 24 Hour Vital Signs Date Time Temp Pulse Resp B/P (MAP) Pulse Ox O2 Delivery O2 Flow Rate FiO2 10/17/18 14:05 96 18 99 T-piece 8.0 30 10/17/18 14:00 T-piece 8.0 30 10/17/18 14:00 99 T-piece 8.0 30 10/17/18 13:54 99 18 99 T-piece 8.0 30 10/17/18 12:00 89 10/17/18 12:00 8.0 30 10/17/18 12:00 99.0 91 16 138/74 (95) 99 10/17/18 09:00 8.0 30 10/17/18 09:00 Trach Collar 8.0 Trach Collar 8.0 10/17/18 08:00 74 10/17/18 08:00 97.1 76 16 122/66 (84) 97 10/17/18 07:05 T-piece 8.0 30 10/17/18 07:05 98 T-piece 8.0 30 10/17/18 07:00 T-piece 8.0 30 10/17/18 07:00 T-piece 8.0 30 10/17/18 04:00 T-piece 10/17/18 04:00 8.0 30 10/17/18 04:00 73 10/17/18 04:00 98.2 75 20 136/71 (92) 98 10/17/18 01:09 78 18 99 T-piece 8.0 30 10/17/18 01:03 99 T-piece 8.0 30 10/17/18 01:03 T-piece 8.0 30 10/17/18 01:01 67 18 99 T-piece 8.0 30 10/17/18 00:00 8.0 30 10/17/18 00:00 74 10/17/18 00:00 98.1 70 18 127/73 (91) 100 10/17/18 00:00 T-piece 10/16/18 20:00 90 10/16/18 20:00 8.0 30 10/16/18 20:00 97.8 81 18 132/75 (94) 99 10/16/18 20:00 T-piece 2/17/19 19:58 77 20 100 T-piece 8.0 30 10/16/18 19:48 T-piece 8.0 30 10/16/18 19:48 75 20 98 T-piece 8.0 30 10/16/18 19:47 99 T-piece 8.0 30 I&O Intake and Output 10/16/18 10/17/18 18:59 06:59 Intake Total 1802.5 ml 770 ml Output Total 2095 ml Balance -292.5 ml 770 ml Intake Free Water 260 ml 170 ml IV Total 942.5 ml Tube Feeding 600 ml 600 ml Output Urine Total 1900 ml Stool Total 195 ml Dressing: other Wound: other Drains: other Cardiovascular: RSR Respiratory: clear Abdomen: non-tender, present bowel sounds, non-distended Extremities: other Plan Problems: (1) Severe sepsis Assessment & Plan: leukocytosis resolved on IV Abx labs noted uop okay rx as written dvt ppx (2) Multiple wounds Assessment & Plan: Pt presents with partial thickness pressure injuries to R and L gluteal clefts and an area at sacrococcygeal that is dark and indurated. Wounds present on admission. L buttocks partial thickness wound moist and viable .Edges adherent and flat .Non-blanchable erythema periwound. (L)3.9cm x (W)3.5cm. R gluteal cleft partial thickness pressure injury.Wound bed moist and viable.edges adhrent and flat .Non-blanchable erythema periwound (L)0.4cm x (W) 0.5cm. Bilat heels boggy but blanchable. Non-blanchable erythema noted to lateral R heel. Tx.Plan: Apply Moisture Barrier Paste to R and L buttocks .Cover with Optifoam drsg .Change daily and prn. Apply Cavilon Skin Barrier to R and L heels and Malleoli.Cover each site with Optifoam drsgs .Change every 7 days and PRN. APM/CLINT mattress. Reposition at least every 2hours or as tolerated. Off-load heels with pillow. Monroe Reynaga Oct 17, 2018 16:08
--- NOTE | 2018-10-17 18:46 | NUR ---
NURSE NOTES: Left message on voicemail of Dr. Davy Estrada informing that patient is Sinus Tachycardia at 133 and sustaining.
--- NOTE | 2018-10-17 19:33 | NUR ---
NURSE NOTES: Received report from KOLE Craven. Pt currently tachy. Dr Estrada called back with orders for stat labs, bolus 500 .45 NS, and to call Dr. Aaron with results. Bed in lowest position. Call light within reach. Bed alarm on. Will collect labs and will continue to monitor.
--- NOTE | 2018-10-17 19:48 | NUR ---
HAND-OFF: Report given to Hillary Jin RN. Patient sitting HOB at 45 degress, sleeping, respirations at 16 breaths per minute, bed in lowest position, call light within reach, Trach tube in place with Shiley #6 spare at bedside, G-tube in place, rectal tube in place, Castrejon cather in place. Patient tachycardia reported to Dr. Davy Estrada. Dr. Davy Estrada spoke with Hillary Jin and placed orders.
[2018-10-17 20:00] VITALS: BP 127/66
--- NOTE | 2018-10-17 20:09 | NUR ---
RESPIRATORY THERAPY Duoneb non admin due to HR is high 145. Mucomyst not given because duoneb cannot be given. KOLE Thornton is notified.
[2018-10-17] MEDS ORDERED: Tubing IV Secondary IV ONE ×3 (20:13→20:37)
[2018-10-17] MEDS ORDERED: D5NS 1000ml IV ONE ×3 (20:13→20:37)
[2018-10-17] MEDS ORDERED: NS 275ml ONE ×3 (20:13→20:37)
[2018-10-17 20:36] LABS: ANION GAP 6 mmol/L (5-15); BLOOD UREA NITROGEN 22 mg/dL (7-18); CALCIUM 8.8 MG/DL (8.5-10.1); CARBON DIOXIDE 34 MMOL/L (21-32); CHLORIDE 107 MMOL/L (98-107); CREATININE 1.2 MG/DL (0.55-1.30); POTASSIUM 3.4 MMOL/L (3.5-5.1); SODIUM 147 MMOL/L (136-145)
[2018-10-17] MEDS ORDERED: NS Irrig 1000ml ONE (20:37)
[2018-10-17 20:41] LABS: ALANINE AMINOTRANSFERASE 27 U/L (12-78); ALBUMIN 2.4 G/DL (3.4-5.0); ALBUMIN/GLOBULIN RATIO 0.5 (1.0-2.7); ALKALINE PHOSPHATASE 115 U/L (46-116); ASPARTATE AMINO TRANSFERASE 25 U/L (15-37); BILIRUBIN,TOTAL 0.2 MG/DL (0.2-1.0)
[2018-10-17] MEDS ORDERED: Acetaminophen 650mg/20.3ml NG SCH (20:45)
--- NOTE | 2018-10-17 20:45 | NUR ---
NURSE NOTES: Called and left a message with Dr. Aaron regarding pts abnormal vitals and labs. Awaiting call back
--- NOTE | 2018-10-17 20:49 | NUR ---
NURSE NOTES: Tylenol rectal dose wasted d/t rectal tube
[2018-10-17 20:58] LABS: BASOPHILS % (AUTO) 0.7 % (0.0-2.0); HEMATOCRIT 25.6 % (42.0-52.0); HEMOGLOBIN 8.7 G/DL (14.2-18.0); LYMPHOCYTES % (AUTO) 35.7 % (20.0-45.0); MEAN CORPUSCULAR VOLUME 94 FL (80-99); MONOCYTES % (AUTO) 4.4 % (1.0-10.0); NEUTROPHILS % (AUTO) 59.2 % (45.0-75.0); PLATELET COUNT 211 K/UL (150-450); RED BLOOD COUNT 2.73 M/UL (4.70-6.10); RED CELL DISTRIBUTION WIDTH 13.9 % (11.6-14.8); WHITE BLOOD COUNT 12.2 K/UL (4.8-10.8)
--- NOTE | 2018-10-17 21:25 | Cardiology Progress Note ---
Assessment/Plan Assessment/Plan 1. Septic shock,resolved, due to B/L pneumonia. 2. Dyspnea due to B/L pneumonia, 2D echo revealing + wall motion abnormalities in the septal wall, ? ischemic CM, LVEF ~45%. 3. CVA with severe debilitation, consider ASA and statins. 4. Dysphagia, s/p PEG placement. 5. VDRF, s/p tracheostomy placement. 6. Sinus tachycardia, start metoprolol 25mg po bid. Subjective Subjective Sinus tachycardia at rate of 100. On T-piece, FiO2 30%. Objective Last 24 Hour Vital Signs Date Time Temp Pulse Resp B/P (MAP) Pulse Ox O2 Delivery O2 Flow Rate FiO2 10/17/18 16:00 100 10/17/18 16:00 8.0 30 10/17/18 16:00 98.8 88 16 123/87 (99) 96 10/17/18 14:05 96 18 99 T-piece 8.0 30 10/17/18 14:00 T-piece 8.0 30 10/17/18 14:00 99 T-piece 8.0 30 10/17/18 13:54 99 18 99 T-piece 8.0 30 10/17/18 12:00 89 10/17/18 12:00 8.0 30 10/17/18 12:00 99.0 91 16 138/74 (95) 99 10/17/18 09:00 8.0 30 10/17/18 09:00 Trach Collar 8.0 Trach Collar 8.0 10/17/18 08:00 74 10/17/18 08:00 97.1 76 16 122/66 (84) 97 10/17/18 07:05 T-piece 8.0 30 10/17/18 07:05 98 T-piece 8.0 30 10/17/18 07:00 T-piece 8.0 30 10/17/18 07:00 T-piece 8.0 30 10/17/18 04:00 T-piece 10/17/18 04:00 8.0 30 10/17/18 04:00 73 10/17/18 04:00 98.2 75 20 136/71 (92) 98 10/17/18 01:09 78 18 99 T-piece 8.0 30 10/17/18 01:03 99 T-piece 8.0 30 10/17/18 01:03 T-piece 8.0 30 10/17/18 01:01 67 18 99 T-piece 8.0 30 10/17/18 00:00 8.0 30 10/17/18 00:00 74 10/17/18 00:00 98.1 70 18 127/73 (91) 100 10/17/18 00:00 T-piece Intake and Output 10/16/18 10/17/18 18:59 06:59 Intake Total 1802.5 ml 770 ml Output Total 2095 ml Balance -292.5 ml 770 ml Intake Free Water 260 ml 170 ml IV Total 942.5 ml Tube Feeding 600 ml 600 ml Output Urine Total 1900 ml Stool Total 195 ml 2D Echo: LVEF 45%, Septal wall hypokinesia, Grade I LVDD Laboratory Tests Test 10/17/18 20:07 White Blood Count 12.2 K/UL (4.8-10.8) H Red Blood Count 2.73 M/UL (4.70-6.10) L Hemoglobin 8.7 G/DL (14.2-18.0) L Hematocrit 25.6 % (42.0-52.0) L Mean Corpuscular Volume 94 FL (80-99) Mean Corpuscular Hemoglobin 31.7 PG (27.0-31.0) H Mean Corpuscular Hemoglobin Concent 33.8 G/DL (32.0-36.0) Red Cell Distribution Width 13.9 % (11.6-14.8) Platelet Count 211 K/UL (150-450) Mean Platelet Volume 6.6 FL (6.5-10.1) Neutrophils (%) (Auto) 59.2 % (45.0-75.0) Lymphocytes (%) (Auto) 35.7 % (20.0-45.0) Monocytes (%) (Auto) 4.4 % (1.0-10.0) Eosinophils (%) (Auto) 0.0 % (0.0-3.0) Basophils (%) (Auto) 0.7 % (0.0-2.0) Sodium Level 147 MMOL/L (136-145) H Potassium Level 3.4 MMOL/L (3.5-5.1) L Chloride Level 107 MMOL/L (98-107) Carbon Dioxide Level 34 MMOL/L (21-32) H Anion Gap 6 mmol/L (5-15) Blood Urea Nitrogen 22 mg/dL (7-18) H Creatinine 1.2 MG/DL (0.55-1.30) Estimat Glomerular Filtration Rate > 60 mL/min (>60) Glucose Level 321 MG/DL (74-106) H Calcium Level 8.8 MG/DL (8.5-10.1) Total Bilirubin 0.2 MG/DL (0.2-1.0) Aspartate Amino Transf (AST/SGOT) 25 U/L (15-37) Alanine Aminotransferase (ALT/SGPT) 27 U/L (12-78) Alkaline Phosphatase 115 U/L (46-116) Total Protein 7.1 G/DL (6.4-8.2) Albumin 2.4 G/DL (3.4-5.0) L Globulin 4.7 g/dL Albumin/Globulin Ratio 0.5 (1.0-2.7) L Objective HEENT: Atraumatic, bitemporal wasting, dry mucosal membranes, PERRLA NECK: cannot assess JVP, tracheostomy tube in place. HEART: Regular rate and rhythm. Tachycardic. No murmurs, gallops or rubs. Lungs: Bibasilar crackles. ABDOMEN: Soft, NT/ND, + BS. G-tube in place. EXTREMITIES: No edema, clubbing or cyanosis. NEUROLOGIC: Nonresponsive, vegetative state. Davy Estrada MD Oct 17, 2018 21:25
[2018-10-17] MEDS: Dyna-Hex 2% Top Sol 2oz TOPIC SCH (21:34)
--- NOTE | 2018-10-17 21:49 | Diagnostic Imaging Report ---
APPROVED REPORT CPT Code: 66425 Present Symptoms Comments: BILATERAL LEGS PAIN. BILATERAL: Imaging reveals a patent deep venous system bilaterally. There is no evidence of thrombus within the femoral, popliteal or tibial segments. The greater saphenous veins are also within normal limits. Doppler indicates normal spontaneous flow within these segments.
[2018-10-18] VITALS: BP 113/59
[2018-10-18] MEDS: Albuterol/Ipratropium 3ml neb HHN SCH ×4 (01:13→20:39)
[2018-10-18] MEDS: Acetaminophen 650mg/20.3ml NG PRN ×2 (01:39→20:11)
[2018-10-18 04:00] VITALS: BP 111/59
[2018-10-18] MEDS: Hydrocortisone 100mg Inj IV SCH ×3 (05:20→20:10)
[2018-10-18 05:44] LABS: BASOPHILS % (AUTO) 0.8 % (0.0-2.0); HEMATOCRIT 23.6 % (42.0-52.0); LYMPHOCYTES % (AUTO) 40.3 % (20.0-45.0); MEAN CORPUSCULAR VOLUME 94 FL (80-99); MONOCYTES % (AUTO) 9.2 % (1.0-10.0); NEUTROPHILS % (AUTO) 49.7 % (45.0-75.0); PLATELET COUNT 150 K/UL (150-450); RED CELL DISTRIBUTION WIDTH 14.4 % (11.6-14.8); WHITE BLOOD COUNT 12.2 K/UL (4.8-10.8)
[2018-10-18 06:08] LABS: ANION GAP 3 mmol/L (5-15); BLOOD UREA NITROGEN 19 mg/dL (7-18); CALCIUM 7.7 MG/DL (8.5-10.1); CARBON DIOXIDE 35 MMOL/L (21-32); CHLORIDE 108 MMOL/L (98-107); PHOSPHORUS 2.8 MG/DL (2.5-4.9); SODIUM 146 MMOL/L (136-145)
[2018-10-18 06:15] LABS: POTASSIUM 2.4 MMOL/L (3.5-5.1)
--- NOTE | 2018-10-18 06:37 | NUR ---
NURSE NOTES: Called and left a message with Dr. Aaron regarding pts abnormal labs. Awaiting call back. Addendum: 10/18/18 at 0657 by Hillary Jin RN Also called and left a message with Dr. Piper regarding pts abnormal labs
[2018-10-18 06:46] LABS: ALANINE AMINOTRANSFERASE 30 U/L (12-78); ALBUMIN 2.2 G/DL (3.4-5.0); ALKALINE PHOSPHATASE 95 U/L (46-116); ASPARTATE AMINO TRANSFERASE 28 U/L (15-37); BILIRUBIN,DIRECT < 0.1 MG/DL (0.0-0.3); BILIRUBIN,TOTAL 0.3 MG/DL (0.2-1.0)
--- NOTE | 2018-10-18 07:25 | NUR ---
NURSE NOTES: I received the patient resting in bed. Patient does not display any signs of distress or SOB. Patient nonverbal. Patient receiving a breathing treatment, saturation and heart rate within normal range. Bed in the lowest position and call light within reach.
[2018-10-18] MEDS: Acetylcysteine 20% Soln 4ml HHN SCH ×3 (07:54→20:40)
--- NOTE | 2018-10-18 07:54 | NUR ---
HAND-OFF: Report given to KOLE Kong. Pt stable. Endorsed critical lab results.
[2018-10-18 08:00] VITALS: BP 110/64
[2018-10-18] MEDS: Metoprolol 25mg tab ORAL SCH ×2 (08:31→20:11)
[2018-10-18] MEDS: Heparin 5000 units/ml inj SUBQ SCH ×2 (08:32→20:13)
--- NOTE | 2018-10-18 10:35 | Infectious Diseases Prog Note ---
Assessment/Plan Assessment/Plan IMPRESSION: Sepsis with septic shock. resolved Urinary tract infection with E. coli treated pneumonia, acute renal failure, resolving lactic acidosis, resolving acute on chronic respiratory failure with hypoxemia, anemia, diabetes mellitus. Anemia Diarrhea, C. 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 Hypokalemia P: Observe off antibiotic Remove femoral line before discharge Subjective ROS Limited/Unobtainable: Yes Allergies: Coded Allergies: No Known Allergies (Unverified , 10/11/18) Objective Vital Signs Last 24 Hour Vital Signs Date Time Temp Pulse Resp B/P (MAP) Pulse Ox O2 Delivery O2 Flow Rate FiO2 10/18/18 08:31 97 110/64 10/18/18 08:08 92 24 96 T-piece 10.0 35 10/18/18 08:00 10.0 35 10/18/18 08:00 97.9 97 20 110/64 (79) 97 10/18/18 07:54 T-piece 12.0 40 10/18/18 07:54 98 T-piece 12.0 40 10/18/18 07:54 90 24 98 T-piece 12.0 40 10/18/18 07:43 86 10/18/18 04:00 99.1 96 19 111/59 (76) 96 10/18/18 04:00 8.0 30 10/18/18 04:00 99 10/18/18 02:09 101.2 10/18/18 01:23 115 22 98 T-piece 8.0 30 10/18/18 01:13 T-piece 10.0 40 10/18/18 01:13 114 22 95 T-piece 10.0 40 10/18/18 01:13 95 T-piece 10.0 40 10/18/18 00:00 8.0 30 10/18/18 00:00 127 10/18/18 00:00 102.4 115 19 113/59 (77) 97 10/17/18 21:19 104.3 10/17/18 21:00 Trach Collar 8.0 Trach Collar 8.0 10/17/18 20:09 144 24 94 T-piece 10.0 40 10/17/18 20:09 T-piece 10.0 40 10/17/18 20:09 95 T-piece 10.0 40 10/17/18 20:09 T-piece 10.0 40 10/17/18 20:00 104.3 140 22 127/66 (86) 85 10/17/18 16:00 100 10/17/18 16:00 8.0 30 10/17/18 16:00 98.8 88 16 123/87 (99) 96 10/17/18 14:05 96 18 99 T-piece 8.0 30 10/17/18 14:00 T-piece 8.0 30 10/17/18 14:00 99 T-piece 8.0 30 10/17/18 13:54 99 18 99 T-piece 8.0 30 10/17/18 12:00 89 10/17/18 12:00 8.0 30 10/17/18 12:00 99.0 91 16 138/74 (95) 99 Height (Feet): 5 Height (Inches): 7.00 Weight (Pounds): 148 HEENT: status post trach Respiratory/Chest: rhonchi - bilaterally, other - on T bar Cardiovascular: normal rate, other - R femoral line Abdomen: soft, non tender, other - GT feeding Extremities: no edema Neurologic/Psychiatric: unresponsiveness Laboratory Tests Test 10/17/18 20:07 10/18/18 05:30 White Blood Count 12.2 K/UL (4.8-10.8) H 12.2 K/UL (4.8-10.8) H Red Blood Count 2.73 M/UL (4.70-6.10) L 2.50 M/UL (4.70-6.10) L Hemoglobin 8.7 G/DL (14.2-18.0) L 8.0 G/DL (14.2-18.0) L Hematocrit 25.6 % (42.0-52.0) L 23.6 % (42.0-52.0) L Mean Corpuscular Volume 94 FL (80-99) 94 FL (80-99) Mean Corpuscular Hemoglobin 31.7 PG (27.0-31.0) H 32.0 PG (27.0-31.0) H Mean Corpuscular Hemoglobin Concent 33.8 G/DL (32.0-36.0) 33.9 G/DL (32.0-36.0) Red Cell Distribution Width 13.9 % (11.6-14.8) 14.4 % (11.6-14.8) Platelet Count 211 K/UL (150-450) 150 K/UL (150-450) Mean Platelet Volume 6.6 FL (6.5-10.1) 7.5 FL (6.5-10.1) Neutrophils (%) (Auto) 59.2 % (45.0-75.0) 49.7 % (45.0-75.0) Lymphocytes (%) (Auto) 35.7 % (20.0-45.0) 40.3 % (20.0-45.0) Monocytes (%) (Auto) 4.4 % (1.0-10.0) 9.2 % (1.0-10.0) Eosinophils (%) (Auto) 0.0 % (0.0-3.0) 0.0 % (0.0-3.0) Basophils (%) (Auto) 0.7 % (0.0-2.0) 0.8 % (0.0-2.0) Sodium Level 147 MMOL/L (136-145) H 146 MMOL/L (136-145) H Potassium Level 3.4 MMOL/L (3.5-5.1) L 2.4 MMOL/L (3.5-5.1) *L Chloride Level 107 MMOL/L (98-107) 108 MMOL/L (98-107) H Carbon Dioxide Level 34 MMOL/L (21-32) H 35 MMOL/L (21-32) H Anion Gap 6 mmol/L (5-15) 3 mmol/L (5-15) L Blood Urea Nitrogen 22 mg/dL (7-18) H 19 mg/dL (7-18) H Creatinine 1.2 MG/DL (0.55-1.30) 1.0 MG/DL (0.55-1.30) Estimat Glomerular Filtration Rate > 60 mL/min (>60) > 60 mL/min (>60) Glucose Level 321 MG/DL (74-106) H 229 MG/DL (74-106) H Calcium Level 8.8 MG/DL (8.5-10.1) 7.7 MG/DL (8.5-10.1) L Total Bilirubin 0.2 MG/DL (0.2-1.0) 0.3 MG/DL (0.2-1.0) Aspartate Amino Transf (AST/SGOT) 25 U/L (15-37) 28 U/L (15-37) Alanine Aminotransferase (ALT/SGPT) 27 U/L (12-78) 30 U/L (12-78) Alkaline Phosphatase 115 U/L (46-116) 95 U/L (46-116) Total Protein 7.1 G/DL (6.4-8.2) 6.1 G/DL (6.4-8.2) L Albumin 2.4 G/DL (3.4-5.0) L 2.2 G/DL (3.4-5.0) L Globulin 4.7 g/dL Albumin/Globulin Ratio 0.5 (1.0-2.7) L Phosphorus Level 2.8 MG/DL (2.5-4.9) Magnesium Level 1.7 MG/DL (1.8-2.4) L Direct Bilirubin < 0.1 MG/DL (0.0-0.3) Current Medications Medications (Trade) Dose Ordered Sig/Last Route PRN Reason Start Time Stop Time Status Last Admin Dose Admin Acetaminophen (Tylenol) 650 mg Q4H PRN NG for fever >100.3 10/18/18 01:30 11/17/18 01:29 10/18/18 01:39 Acetaminophen (Tylenol) 650 mg Q4H PRN RECTAL Prn Headache/Temp > 101 10/17/18 07:30 11/16/18 07:29 Acetylcysteine (Mucomyst) 100 mg TIDRT [facility] 10/17/18 13:00 11/15/18 12:59 10/18/18 07:54 Albuterol/ Ipratropium (Albuterol/ Ipratropium) 3 ml Q6HRT N 10/17/18 13:00 10/19/18 12:59 10/18/18 07:54 Chlorhexidine Gluconate (Petra-Hex 2%) 1 applic DAILY@2000 TOPIC 10/17/18 20:00 11/14/18 19:59 10/17/18 21:34 Famotidine (Pepcid I.v.) 20 mg Q12HR IVP 10/17/18 09:00 11/12/18 20:59 10/18/18 08:31 Heparin Sodium (Porcine) (Heparin 5000 units/ml) 5,000 units EVERY 12 HOURS SUBQ 10/17/18 09:00 11/10/18 20:59 10/18/18 08:32 Hydrocortisone (Solu-CORTEF) 25 mg EVERY 8 HOURS IV 10/17/18 22:00 11/10/18 21:59 10/18/18 05:20 Metoprolol Tartrate (Lopressor) 25 mg Q12HR ORAL 10/18/18 09:00 11/17/18 08:59 10/18/18 08:31 Potassium Chloride 100 ml @ 100 mls/hr Q1HR IVPB 10/18/18 08:00 10/18/18 17:59 10/18/18 10:10 Potassium Chloride (K-Dur) 40 meq TWICE A DAY GT 10/17/18 09:00 11/15/18 17:59 10/18/18 08:31 Lucas Bravo MD Oct 18, 2018 10:35
--- NOTE | 2018-10-18 10:52 | GI Progress Note ---
Assessment/Plan Problems: (1) Gastrostomy tube dependent ICD Codes: Z93.1 - Gastrostomy status SNOMED: 340202891, 605291476 (2) Anemia ICD Codes: D64.9 - Anemia, unspecified SNOMED: 044171052 (3) Iron deficiency ICD Codes: E61.1 - Iron deficiency SNOMED: 82960525 (4) Dehydration ICD Codes: E86.0 - Dehydration SNOMED: 79227158 (5) Feeding by G-tube ICD Codes: Z93.1 - Gastrostomy status SNOMED: 697197454, 114739172, 559978135 Status: stable Status Narrative Discussed with Dr. Dixon. Assessment/Plan Anemia workup reviewed. Iron deficiency. OB stool negative. G-tube dependent Rectal tube present Cdiff negative G-tube feeding per RD to goal Reglan for GI motility if needed monitor H&H, as needed transfusions Antibiotics venofer No plans for GI procedures unless urgent Follow labs The patient was seen and examined at bedside and all new and available data was reviewed in the patients chart. I agree with the above findings, impression and plan. (Patient seen earlier today. Signature stamp does not reflect patient encounter time.). - Gerson Dixon MD Subjective Subjective limited Objective Last 24 Hour Vital Signs Date Time Temp Pulse Resp B/P (MAP) Pulse Ox O2 Delivery O2 Flow Rate FiO2 10/18/18 09:00 Trach Collar 8.0 Trach Collar 8.0 10/18/18 08:31 97 110/64 10/18/18 08:08 92 24 96 T-piece 10.0 35 10/18/18 08:00 10.0 35 10/18/18 08:00 97.9 97 20 110/64 (79) 97 10/18/18 07:54 T-piece 12.0 40 10/18/18 07:54 98 T-piece 12.0 40 10/18/18 07:54 90 24 98 T-piece 12.0 40 10/18/18 07:43 86 10/18/18 04:00 99.1 96 19 111/59 (76) 96 10/18/18 04:00 8.0 30 10/18/18 04:00 99 10/18/18 02:09 101.2 10/18/18 01:23 115 22 98 T-piece 8.0 30 10/18/18 01:13 T-piece 10.0 40 10/18/18 01:13 114 22 95 T-piece 10.0 40 10/18/18 01:13 95 T-piece 10.0 40 10/18/18 00:00 8.0 30 10/18/18 00:00 127 10/18/18 00:00 102.4 115 19 113/59 (77) 97 10/17/18 21:19 104.3 10/17/18 21:00 Trach Collar 8.0 Trach Collar 8.0 10/17/18 20:09 144 24 94 T-piece 10.0 40 10/17/18 20:09 T-piece 10.0 40 10/17/18 20:09 95 T-piece 10.0 40 10/17/18 20:09 T-piece 10.0 40 10/17/18 20:00 104.3 140 22 127/66 (86) 85 10/17/18 16:00 100 10/17/18 16:00 8.0 30 10/17/18 16:00 98.8 88 16 123/87 (99) 96 10/17/18 14:05 96 18 99 T-piece 8.0 30 10/17/18 14:00 T-piece 8.0 30 10/17/18 14:00 99 T-piece 8.0 30 10/17/18 13:54 99 18 99 T-piece 8.0 30 10/17/18 12:00 89 10/17/18 12:00 8.0 30 10/17/18 12:00 99.0 91 16 138/74 (95) 99 Intake and Output 10/17/18 10/18/18 19:00 07:00 Intake Total 1100 ml 150 ml Output Total 1000 ml Balance 1100 ml -850 ml Intake Free Water 550 ml 100 ml Tube Feeding 550 ml 50 ml Output Urine Total 1000 ml Laboratory Tests Test 10/17/18 20:07 10/18/18 05:30 White Blood Count 12.2 K/UL (4.8-10.8) H 12.2 K/UL (4.8-10.8) H Red Blood Count 2.73 M/UL (4.70-6.10) L 2.50 M/UL (4.70-6.10) L Hemoglobin 8.7 G/DL (14.2-18.0) L 8.0 G/DL (14.2-18.0) L Hematocrit 25.6 % (42.0-52.0) L 23.6 % (42.0-52.0) L Mean Corpuscular Volume 94 FL (80-99) 94 FL (80-99) Mean Corpuscular Hemoglobin 31.7 PG (27.0-31.0) H 32.0 PG (27.0-31.0) H Mean Corpuscular Hemoglobin Concent 33.8 G/DL (32.0-36.0) 33.9 G/DL (32.0-36.0) Red Cell Distribution Width 13.9 % (11.6-14.8) 14.4 % (11.6-14.8) Platelet Count 211 K/UL (150-450) 150 K/UL (150-450) Mean Platelet Volume 6.6 FL (6.5-10.1) 7.5 FL (6.5-10.1) Neutrophils (%) (Auto) 59.2 % (45.0-75.0) 49.7 % (45.0-75.0) Lymphocytes (%) (Auto) 35.7 % (20.0-45.0) 40.3 % (20.0-45.0) Monocytes (%) (Auto) 4.4 % (1.0-10.0) 9.2 % (1.0-10.0) Eosinophils (%) (Auto) 0.0 % (0.0-3.0) 0.0 % (0.0-3.0) Basophils (%) (Auto) 0.7 % (0.0-2.0) 0.8 % (0.0-2.0) Sodium Level 147 MMOL/L (136-145) H 146 MMOL/L (136-145) H Potassium Level 3.4 MMOL/L (3.5-5.1) L 2.4 MMOL/L (3.5-5.1) *L Chloride Level 107 MMOL/L (98-107) 108 MMOL/L (98-107) H Carbon Dioxide Level 34 MMOL/L (21-32) H 35 MMOL/L (21-32) H Anion Gap 6 mmol/L (5-15) 3 mmol/L (5-15) L Blood Urea Nitrogen 22 mg/dL (7-18) H 19 mg/dL (7-18) H Creatinine 1.2 MG/DL (0.55-1.30) 1.0 MG/DL (0.55-1.30) Estimat Glomerular Filtration Rate > 60 mL/min (>60) > 60 mL/min (>60) Glucose Level 321 MG/DL (74-106) H 229 MG/DL (74-106) H Calcium Level 8.8 MG/DL (8.5-10.1) 7.7 MG/DL (8.5-10.1) L Total Bilirubin 0.2 MG/DL (0.2-1.0) 0.3 MG/DL (0.2-1.0) Aspartate Amino Transf (AST/SGOT) 25 U/L (15-37) 28 U/L (15-37) Alanine Aminotransferase (ALT/SGPT) 27 U/L (12-78) 30 U/L (12-78) Alkaline Phosphatase 115 U/L (46-116) 95 U/L (46-116) Total Protein 7.1 G/DL (6.4-8.2) 6.1 G/DL (6.4-8.2) L Albumin 2.4 G/DL (3.4-5.0) L 2.2 G/DL (3.4-5.0) L Globulin 4.7 g/dL Albumin/Globulin Ratio 0.5 (1.0-2.7) L Phosphorus Level 2.8 MG/DL (2.5-4.9) Magnesium Level 1.7 MG/DL (1.8-2.4) L Direct Bilirubin < 0.1 MG/DL (0.0-0.3) Height (Feet): 5 Height (Inches): 7.00 Weight (Pounds): 148 General Appearance: WD/WN, no apparent distress, alert Cardiovascular: normal rate Respiratory/Chest: normal breath sounds, no respiratory distress Abdominal Exam: normal bowel sounds, non tender, soft, GT site - Clean dry and intact Extremities: non-tender Gayatri Sofia NP Oct 18, 2018 10:52
[2018-10-18 12:00] VITALS: BP 108/61
--- NOTE | 2018-10-18 14:10 | NUR ---
NURSE NOTES:WOUND CARE FOLLOW-UP NOTES:Pt's wounds resolving. Partial thickness pressure injuries to r and L buttocks pink -epithelialized and dry.Area of induration at sacrococcygeal previously noted has resolved.Brownish discoloration without induration or fluctuance noted at sacrococcygeal area. Bilat heels pink and easily blanchable. Bilat malleoli are pink and blanchable .No new skin concerns noted. Pt has an APM /CLINT mattress overlay. Observed positioned with pillows and with both heels off-loaded. Recommendations:Continue with all current wound care orders and wound prevention protocols as implemented.
[2018-10-18 16:00] VITALS: BP 103/62
--- NOTE | 2018-10-18 17:01 | General Progress Note ---
Assessment/Plan Problem List: (1) Cerebral infarction ICD Codes: I63.9 - Cerebral infarction, unspecified SNOMED: 302284467 (2) Renal failure ICD Codes: N19 - Unspecified kidney failure SNOMED: 41165086 Qualifiers: Qualified Codes: N17.9 - Acute kidney failure, unspecified (3) Encephalopathy ICD Codes: G93.40 - Encephalopathy, unspecified SNOMED: 12268320 (4) Lactic acid acidosis ICD Codes: E87.2 - Acidosis SNOMED: 86462532 (5) Tracheostomy care ICD Codes: Z43.0 - Encounter for attention to tracheostomy SNOMED: 063670272 (6) LUZ MARIA (acute kidney injury) ICD Codes: N17.9 - Acute kidney failure, unspecified SNOMED: 12258940 (7) DNAR (do not attempt resuscitation) ICD Codes: Z66 - Do not resuscitate SNOMED: 059260588 (8) Dehydration ICD Codes: E86.0 - Dehydration SNOMED: 15204715 (9) Iron deficiency ICD Codes: E61.1 - Iron deficiency SNOMED: 37057188 Status: unchanged Assessment/Plan cri encephalopathy lyte abnormality pna sepsis abx per id resp failure trach Subjective ROS Limited/Unobtainable: Yes Allergies: Coded Allergies: No Known Allergies (Unverified , 10/11/18) Objective Last 24 Hour Vital Signs Date Time Temp Pulse Resp B/P (MAP) Pulse Ox O2 Delivery O2 Flow Rate FiO2 10/18/18 16:00 98.2 81 20 103/62 (76) 97 10/18/18 16:00 8.0 30 10/18/18 12:38 81 16 99 T-piece 8.0 30 10/18/18 12:38 T-piece 8.0 30 10/18/18 12:38 98 T-piece 8.0 30 10/18/18 12:28 85 15 100 T-piece 10.0 35 10/18/18 12:05 79 10/18/18 12:00 97.9 76 20 108/61 (77) 99 10/18/18 12:00 10.0 35 10/18/18 09:00 Trach Collar 8.0 Trach Collar 8.0 10/18/18 08:31 97 110/64 10/18/18 08:08 92 24 96 T-piece 10.0 35 10/18/18 08:00 10.0 35 10/18/18 08:00 97.9 97 20 110/64 (79) 97 10/18/18 07:54 T-piece 12.0 40 10/18/18 07:54 98 T-piece 12.0 40 10/18/18 07:54 90 24 98 T-piece 12.0 40 10/18/18 07:43 86 10/18/18 04:00 99.1 96 19 111/59 (76) 96 10/18/18 04:00 8.0 30 10/18/18 04:00 99 10/18/18 02:09 101.2 10/18/18 01:23 115 22 98 T-piece 8.0 30 10/18/18 01:13 T-piece 10.0 40 10/18/18 01:13 114 22 95 T-piece 10.0 40 10/18/18 01:13 95 T-piece 10.0 40 10/18/18 00:00 8.0 30 10/18/18 00:00 127 10/18/18 00:00 102.4 115 19 113/59 (77) 97 10/17/18 21:19 104.3 10/17/18 21:00 Trach Collar 8.0 Trach Collar 8.0 10/17/18 20:09 144 24 94 T-piece 10.0 40 10/17/18 20:09 T-piece 10.0 40 10/17/18 20:09 95 T-piece 10.0 40 10/17/18 20:09 T-piece 10.0 40 10/17/18 20:00 104.3 140 22 127/66 (86) 85 Intake and Output 10/17/18 10/18/18 19:00 07:00 Intake Total 1100 ml 150 ml Output Total 1000 ml Balance 1100 ml -850 ml Intake Free Water 550 ml 100 ml Tube Feeding 550 ml 50 ml Output Urine Total 1000 ml Laboratory Tests 10/17/18 20:07: White Blood Count 12.2H, Red Blood Count 2.73L, Hemoglobin 8.7L, Hematocrit 25.6L, Mean Corpuscular Volume 94, Mean Corpuscular Hemoglobin 31.7H, Mean Corpuscular Hemoglobin Concent 33.8, Red Cell Distribution Width 13.9, Platelet Count 211, Mean Platelet Volume 6.6, Neutrophils (%) (Auto) 59.2, Lymphocytes (% ) (Auto) 35.7, Monocytes (%) (Auto) 4.4, Eosinophils (%) (Auto) 0.0, Basophils ( %) (Auto) 0.7, Sodium Level 147H, Potassium Level 3.4L, Chloride Level 107, Carbon Dioxide Level 34H, Anion Gap 6, Blood Urea Nitrogen 22H, Creatinine 1.2, Estimat Glomerular Filtration Rate > 60, Glucose Level 321H, Calcium Level 8.8, Total Bilirubin 0.2, Aspartate Amino Transf (AST/SGOT) 25, Alanine Aminotransferase (ALT/SGPT) 27, Alkaline Phosphatase 115, Total Protein 7.1, Albumin 2.4L, Globulin 4.7, Albumin/Globulin Ratio 0.5L 10/18/18 05:30: White Blood Count 12.2H, Red Blood Count 2.50L, Hemoglobin 8.0L, Hematocrit 23.6L, Mean Corpuscular Volume 94, Mean Corpuscular Hemoglobin 32.0H, Mean Corpuscular Hemoglobin Concent 33.9, Red Cell Distribution Width 14.4, Platelet Count 150, Mean Platelet Volume 7.5, Neutrophils (%) (Auto) 49.7, Lymphocytes (% ) (Auto) 40.3, Monocytes (%) (Auto) 9.2, Eosinophils (%) (Auto) 0.0, Basophils ( %) (Auto) 0.8, Sodium Level 146H, Potassium Level 2.4*L, Chloride Level 108H, Carbon Dioxide Level 35H, Anion Gap 3L, Blood Urea Nitrogen 19H, Creatinine 1.0 , Estimat Glomerular Filtration Rate > 60, Glucose Level 229H, Calcium Level 7.7L, Total Bilirubin 0.3, Aspartate Amino Transf (AST/SGOT) 28, Alanine Aminotransferase (ALT/SGPT) 30, Alkaline Phosphatase 95, Total Protein 6.1L, Albumin 2.2L, Phosphorus Level 2.8, Magnesium Level 1.7L, Direct Bilirubin < 0.1 Height (Feet): 5 Height (Inches): 7.00 Weight (Pounds): 148 Neck: supple Cardiovascular: normal rate Respiratory/Chest: chest wall non-tender Abdomen: soft Lula Aaron MD Oct 18, 2018 17:01
--- NOTE | 2018-10-18 17:12 | Nephrology Progress Note ---
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 Plan Plan: K and Phos IV as needed IV Pepcid continue the rest DNAR / DNI Comfort care Poor prognosis Subjective ROS Limited/Unobtainable: Yes Objective Objective Last 24 Hour Vital Signs Date Time Temp Pulse Resp B/P (MAP) Pulse Ox O2 Delivery O2 Flow Rate FiO2 10/18/18 16:00 98.2 81 20 103/62 (76) 97 10/18/18 16:00 8.0 30 10/18/18 12:38 81 16 99 T-piece 8.0 30 10/18/18 12:38 T-piece 8.0 30 10/18/18 12:38 98 T-piece 8.0 30 10/18/18 12:28 85 15 100 T-piece 10.0 35 10/18/18 12:05 79 10/18/18 12:00 97.9 76 20 108/61 (77) 99 10/18/18 12:00 10.0 35 10/18/18 09:00 Trach Collar 8.0 Trach Collar 8.0 10/18/18 08:31 97 110/64 10/18/18 08:08 92 24 96 T-piece 10.0 35 10/18/18 08:00 10.0 35 10/18/18 08:00 97.9 97 20 110/64 (79) 97 10/18/18 07:54 T-piece 12.0 40 10/18/18 07:54 98 T-piece 12.0 40 10/18/18 07:54 90 24 98 T-piece 12.0 40 10/18/18 07:43 86 10/18/18 04:00 99.1 96 19 111/59 (76) 96 10/18/18 04:00 8.0 30 10/18/18 04:00 99 10/18/18 02:09 101.2 10/18/18 01:23 115 22 98 T-piece 8.0 30 10/18/18 01:13 T-piece 10.0 40 10/18/18 01:13 114 22 95 T-piece 10.0 40 10/18/18 01:13 95 T-piece 10.0 40 10/18/18 00:00 8.0 30 10/18/18 00:00 127 10/18/18 00:00 102.4 115 19 113/59 (77) 97 10/17/18 21:19 104.3 10/17/18 21:00 Trach Collar 8.0 Trach Collar 8.0 10/17/18 20:09 144 24 94 T-piece 10.0 40 10/17/18 20:09 T-piece 10.0 40 10/17/18 20:09 95 T-piece 10.0 40 10/17/18 20:09 T-piece 10.0 40 10/17/18 20:00 104.3 140 22 127/66 (86) 85 Intake and Output 10/17/18 10/18/18 19:00 07:00 Intake Total 1100 ml 150 ml Output Total 1000 ml Balance 1100 ml -850 ml Intake Free Water 550 ml 100 ml Tube Feeding 550 ml 50 ml Output Urine Total 1000 ml Laboratory Tests 10/17/18 20:07: White Blood Count 12.2H, Red Blood Count 2.73L, Hemoglobin 8.7L, Hematocrit 25.6L, Mean Corpuscular Volume 94, Mean Corpuscular Hemoglobin 31.7H, Mean Corpuscular Hemoglobin Concent 33.8, Red Cell Distribution Width 13.9, Platelet Count 211, Mean Platelet Volume 6.6, Neutrophils (%) (Auto) 59.2, Lymphocytes (% ) (Auto) 35.7, Monocytes (%) (Auto) 4.4, Eosinophils (%) (Auto) 0.0, Basophils ( %) (Auto) 0.7, Sodium Level 147H, Potassium Level 3.4L, Chloride Level 107, Carbon Dioxide Level 34H, Anion Gap 6, Blood Urea Nitrogen 22H, Creatinine 1.2, Estimat Glomerular Filtration Rate > 60, Glucose Level 321H, Calcium Level 8.8, Total Bilirubin 0.2, Aspartate Amino Transf (AST/SGOT) 25, Alanine Aminotransferase (ALT/SGPT) 27, Alkaline Phosphatase 115, Total Protein 7.1, Albumin 2.4L, Globulin 4.7, Albumin/Globulin Ratio 0.5L 10/18/18 05:30: White Blood Count 12.2H, Red Blood Count 2.50L, Hemoglobin 8.0L, Hematocrit 23.6L, Mean Corpuscular Volume 94, Mean Corpuscular Hemoglobin 32.0H, Mean Corpuscular Hemoglobin Concent 33.9, Red Cell Distribution Width 14.4, Platelet Count 150, Mean Platelet Volume 7.5, Neutrophils (%) (Auto) 49.7, Lymphocytes (% ) (Auto) 40.3, Monocytes (%) (Auto) 9.2, Eosinophils (%) (Auto) 0.0, Basophils ( %) (Auto) 0.8, Sodium Level 146H, Potassium Level 2.4*L, Chloride Level 108H, Carbon Dioxide Level 35H, Anion Gap 3L, Blood Urea Nitrogen 19H, Creatinine 1.0 , Estimat Glomerular Filtration Rate > 60, Glucose Level 229H, Calcium Level 7.7L, Total Bilirubin 0.3, Aspartate Amino Transf (AST/SGOT) 28, Alanine Aminotransferase (ALT/SGPT) 30, Alkaline Phosphatase 95, Total Protein 6.1L, Albumin 2.2L, Phosphorus Level 2.8, Magnesium Level 1.7L, Direct Bilirubin < 0.1 Height (Feet): 5 Height (Inches): 7.00 Weight (Pounds): 148 General Appearance: no apparent distress, lethargic Cardiovascular: tachycardia Respiratory/Chest: decreased breath sounds Abdomen: soft Objective no change Clint Piper MD Oct 18, 2018 17:12
--- NOTE | 2018-10-18 18:14 | Surgery Progress Note ---
Surgery Progress Note Subjective Additional Comments leukocytosis. venous duplex noted. hypok. Objective Last 24 Hour Vital Signs Date Time Temp Pulse Resp B/P (MAP) Pulse Ox O2 Delivery O2 Flow Rate FiO2 10/18/18 16:00 98.2 81 20 103/62 (76) 97 10/18/18 16:00 8.0 30 10/18/18 15:50 91 10/18/18 12:38 81 16 99 T-piece 8.0 30 10/18/18 12:38 T-piece 8.0 30 10/18/18 12:38 98 T-piece 8.0 30 10/18/18 12:28 85 15 100 T-piece 10.0 35 10/18/18 12:05 79 10/18/18 12:00 97.9 76 20 108/61 (77) 99 10/18/18 12:00 10.0 35 10/18/18 09:00 Trach Collar 8.0 Trach Collar 8.0 10/18/18 08:31 97 110/64 10/18/18 08:08 92 24 96 T-piece 10.0 35 10/18/18 08:00 10.0 35 10/18/18 08:00 97.9 97 20 110/64 (79) 97 10/18/18 07:54 T-piece 12.0 40 10/18/18 07:54 98 T-piece 12.0 40 10/18/18 07:54 90 24 98 T-piece 12.0 40 10/18/18 07:43 86 10/18/18 04:00 99.1 96 19 111/59 (76) 96 10/18/18 04:00 8.0 30 10/18/18 04:00 99 10/18/18 02:09 101.2 10/18/18 01:23 115 22 98 T-piece 8.0 30 10/18/18 01:13 T-piece 10.0 40 10/18/18 01:13 114 22 95 T-piece 10.0 40 10/18/18 01:13 95 T-piece 10.0 40 10/18/18 00:00 8.0 30 10/18/18 00:00 127 10/18/18 00:00 102.4 115 19 113/59 (77) 97 10/17/18 21:19 104.3 10/17/18 21:00 Trach Collar 8.0 Trach Collar 8.0 10/17/18 20:09 144 24 94 T-piece 10.0 40 10/17/18 20:09 T-piece 10.0 40 10/17/18 20:09 95 T-piece 10.0 40 10/17/18 20:09 T-piece 10.0 40 10/17/18 20:00 104.3 140 22 127/66 (86) 85 I&O Intake and Output 10/17/18 10/18/18 18:59 06:59 Intake Total 1200 ml 150 ml Output Total 1000 ml Balance 1200 ml -850 ml Intake Free Water 600 ml 100 ml Tube Feeding 600 ml 50 ml Output Urine Total 1000 ml Dressing: other Wound: other Drains: other Cardiovascular: RSR Respiratory: clear Abdomen: soft, present bowel sounds, non-distended Extremities: other Laboratory Tests Test 10/17/18 20:07 10/18/18 05:30 White Blood Count 12.2 K/UL (4.8-10.8) H 12.2 K/UL (4.8-10.8) H Red Blood Count 2.73 M/UL (4.70-6.10) L 2.50 M/UL (4.70-6.10) L Hemoglobin 8.7 G/DL (14.2-18.0) L 8.0 G/DL (14.2-18.0) L Hematocrit 25.6 % (42.0-52.0) L 23.6 % (42.0-52.0) L Mean Corpuscular Volume 94 FL (80-99) 94 FL (80-99) Mean Corpuscular Hemoglobin 31.7 PG (27.0-31.0) H 32.0 PG (27.0-31.0) H Mean Corpuscular Hemoglobin Concent 33.8 G/DL (32.0-36.0) 33.9 G/DL (32.0-36.0) Red Cell Distribution Width 13.9 % (11.6-14.8) 14.4 % (11.6-14.8) Platelet Count 211 K/UL (150-450) 150 K/UL (150-450) Mean Platelet Volume 6.6 FL (6.5-10.1) 7.5 FL (6.5-10.1) Neutrophils (%) (Auto) 59.2 % (45.0-75.0) 49.7 % (45.0-75.0) Lymphocytes (%) (Auto) 35.7 % (20.0-45.0) 40.3 % (20.0-45.0) Monocytes (%) (Auto) 4.4 % (1.0-10.0) 9.2 % (1.0-10.0) Eosinophils (%) (Auto) 0.0 % (0.0-3.0) 0.0 % (0.0-3.0) Basophils (%) (Auto) 0.7 % (0.0-2.0) 0.8 % (0.0-2.0) Sodium Level 147 MMOL/L (136-145) H 146 MMOL/L (136-145) H Potassium Level 3.4 MMOL/L (3.5-5.1) L 2.4 MMOL/L (3.5-5.1) *L Chloride Level 107 MMOL/L (98-107) 108 MMOL/L (98-107) H Carbon Dioxide Level 34 MMOL/L (21-32) H 35 MMOL/L (21-32) H Anion Gap 6 mmol/L (5-15) 3 mmol/L (5-15) L Blood Urea Nitrogen 22 mg/dL (7-18) H 19 mg/dL (7-18) H Creatinine 1.2 MG/DL (0.55-1.30) 1.0 MG/DL (0.55-1.30) Estimat Glomerular Filtration Rate > 60 mL/min (>60) > 60 mL/min (>60) Glucose Level 321 MG/DL (74-106) H 229 MG/DL (74-106) H Calcium Level 8.8 MG/DL (8.5-10.1) 7.7 MG/DL (8.5-10.1) L Total Bilirubin 0.2 MG/DL (0.2-1.0) 0.3 MG/DL (0.2-1.0) Aspartate Amino Transf (AST/SGOT) 25 U/L (15-37) 28 U/L (15-37) Alanine Aminotransferase (ALT/SGPT) 27 U/L (12-78) 30 U/L (12-78) Alkaline Phosphatase 115 U/L (46-116) 95 U/L (46-116) Total Protein 7.1 G/DL (6.4-8.2) 6.1 G/DL (6.4-8.2) L Albumin 2.4 G/DL (3.4-5.0) L 2.2 G/DL (3.4-5.0) L Globulin 4.7 g/dL Albumin/Globulin Ratio 0.5 (1.0-2.7) L Phosphorus Level 2.8 MG/DL (2.5-4.9) Magnesium Level 1.7 MG/DL (1.8-2.4) L Direct Bilirubin < 0.1 MG/DL (0.0-0.3) Plan Problems: (1) Severe sepsis Assessment & Plan: leukocytosis resolved on IV Abx labs noted uop okay rx as written dvt ppx (2) Multiple wounds Assessment & Plan: Pt presents with partial thickness pressure injuries to R and L gluteal clefts and an area at sacrococcygeal that is dark and indurated. Wounds present on admission. L buttocks partial thickness wound moist and viable .Edges adherent and flat .Non-blanchable erythema periwound. (L)3.9cm x (W)3.5cm. R gluteal cleft partial thickness pressure injury.Wound bed moist and viable.edges adhrent and flat .Non-blanchable erythema periwound (L)0.4cm x (W) 0.5cm. Bilat heels boggy but blanchable. Non-blanchable erythema noted to lateral R heel. Tx.Plan: Apply Moisture Barrier Paste to R and L buttocks .Cover with Optifoam drsg .Change daily and prn. Apply Cavilon Skin Barrier to R and L heels and Malleoli.Cover each site with Optifoam drsgs .Change every 7 days and PRN. APM/CLINT mattress. Reposition at least every 2hours or as tolerated. Off-load heels with pillow. Monroe Reynaga Oct 18, 2018 18:14
--- NOTE | 2018-10-18 19:07 | NUR ---
HAND-OFF: Report given to KOLE Thornton.
--- NOTE | 2018-10-18 19:10 | NUR ---
NURSE NOTES: Received pt from KOLE Kong. Pt still comatose. Bed in lowest position at 45 degrees. Call light within reach. Rectal tube, conrad catheter, and gt still in place. Will continue to monitor.
[2018-10-18 20:00] VITALS: BP 122/75
[2018-10-18] MEDS: Dyna-Hex 2% Top Sol 2oz TOPIC SCH (20:10)
--- NOTE | 2018-10-18 21:00 | NUR ---
NURSE NOTES: Pt not tolerating gt feedings well. pt had residual of 200. Feeding stopped. Will resume after a couple hours. Will continue to monitor.
--- NOTE | 2018-10-18 21:24 | Pulmonology Progress Note ---
Assessment/Plan Problems: (1) Cerebral infarction (2) Encephalopathy (3) Severe sepsis (4) Lactic acid acidosis (5) Tracheostomy care (6) Feeding by G-tube (7) DNAR (do not attempt resuscitation) Assessment/Plan -FFWU sent --Optimize pulmonary hygiene/mobilize as tolerated -Continue TC -Titrate O2 -HHN's and NAC -TF's as tolerated -Obseve off Abx per ID -Decrease HC to 25 BID and taper -Monitor volumes and renal function -DNAR -Dispo planning Subjective Allergies: Coded Allergies: No Known Allergies (Unverified , 10/11/18) Subjective Tm 102.4 SHAJI o/w rolly TF's no distress no cough no secretions no F/C Objective Last 24 Hour Vital Signs Date Time Temp Pulse Resp B/P (MAP) Pulse Ox O2 Delivery O2 Flow Rate FiO2 10/18/18 21:09 T-piece 8.0 30 10/18/18 21:08 97 T-piece 8.0 30 10/18/18 20:51 95 18 99 T-piece 8.0 30 10/18/18 20:41 97.7 10/18/18 20:40 103 16 97 T-piece 10.0 35 10/18/18 20:11 105 122/75 10/18/18 16:00 98.2 81 20 103/62 (76) 97 10/18/18 16:00 8.0 30 10/18/18 15:50 91 10/18/18 12:38 81 16 99 T-piece 8.0 30 10/18/18 12:38 T-piece 8.0 30 10/18/18 12:38 98 T-piece 8.0 30 10/18/18 12:28 85 15 100 T-piece 10.0 35 10/18/18 12:05 79 10/18/18 12:00 97.9 76 20 108/61 (77) 99 10/18/18 12:00 10.0 35 10/18/18 09:00 Trach Collar 8.0 Trach Collar 8.0 10/18/18 08:31 97 110/64 10/18/18 08:08 92 24 96 T-piece 10.0 35 10/18/18 08:00 10.0 35 10/18/18 08:00 97.9 97 20 110/64 (79) 97 10/18/18 07:54 T-piece 12.0 40 10/18/18 07:54 98 T-piece 12.0 40 10/18/18 07:54 90 24 98 T-piece 12.0 40 10/18/18 07:43 86 10/18/18 04:00 99.1 96 19 111/59 (76) 96 10/18/18 04:00 8.0 30 10/18/18 04:00 99 10/18/18 01:23 115 22 98 T-piece 8.0 30 10/18/18 01:13 T-piece 10.0 40 10/18/18 01:13 114 22 95 T-piece 10.0 40 10/18/18 01:13 95 T-piece 10.0 40 10/18/18 00:00 8.0 30 10/18/18 00:00 127 10/18/18 00:00 102.4 115 19 113/59 (77) 97 Intake and Output 10/17/18 10/18/18 18:59 06:59 Intake Total 1200 ml 150 ml Output Total 1000 ml Balance 1200 ml -850 ml Intake Free Water 600 ml 100 ml Tube Feeding 600 ml 50 ml Output Urine Total 1000 ml General Appearance: cachetic HEENT: status post trach Respiratory/Chest: chest wall non-tender, lungs clear, normal breath sounds, no respiratory distress Cardiovascular: normal peripheral pulses, normal rate, regular rhythm Abdomen: normal bowel sounds, soft, non tender, no organomegaly, non distended , other - GT Extremities: no cyanosis, no clubbing, no edema Laboratory Tests 10/18/18 05:30: White Blood Count 12.2H, Red Blood Count 2.50L, Hemoglobin 8.0L, Hematocrit 23.6L, Mean Corpuscular Volume 94, Mean Corpuscular Hemoglobin 32.0H, Mean Corpuscular Hemoglobin Concent 33.9, Red Cell Distribution Width 14.4, Platelet Count 150, Mean Platelet Volume 7.5, Neutrophils (%) (Auto) 49.7, Lymphocytes (% ) (Auto) 40.3, Monocytes (%) (Auto) 9.2, Eosinophils (%) (Auto) 0.0, Basophils ( %) (Auto) 0.8, Sodium Level 146H, Potassium Level 2.4*L, Chloride Level 108H, Carbon Dioxide Level 35H, Anion Gap 3L, Blood Urea Nitrogen 19H, Creatinine 1.0 , Estimat Glomerular Filtration Rate > 60, Glucose Level 229H, Calcium Level 7.7L, Phosphorus Level 2.8, Magnesium Level 1.7L, Total Bilirubin 0.3, Direct Bilirubin < 0.1, Aspartate Amino Transf (AST/SGOT) 28, Alanine Aminotransferase (ALT/SGPT) 30, Alkaline Phosphatase 95, Total Protein 6.1L, Albumin 2.2L Current Medications Medications (Trade) Dose Ordered Sig/Last Route PRN Reason Start Time Stop Time Status Last Admin Dose Admin Acetaminophen (Tylenol) 650 mg Q4H PRN NG for fever >100.3 10/18/18 01:30 11/17/18 01:29 10/18/18 20:11 Acetaminophen (Tylenol) 650 mg Q4H PRN RECTAL Prn Headache/Temp > 101 10/17/18 07:30 11/16/18 07:29 Acetylcysteine (Mucomyst) 100 mg TIDRT N 10/17/18 13:00 11/15/18 12:59 10/18/18 20:40 Albuterol/ Ipratropium (Albuterol/ Ipratropium) 3 ml Q6HRT N 10/17/18 13:00 10/19/18 12:59 10/18/18 20:39 Chlorhexidine Gluconate (Petra-Hex 2%) 1 applic DAILY@2000 TOPIC 10/17/18 20:00 11/14/18 19:59 10/18/18 20:10 Famotidine (Pepcid I.v.) 20 mg Q12HR IVP 10/17/18 09:00 11/12/18 20:59 10/18/18 20:56 Heparin Sodium (Porcine) (Heparin 5000 units/ml) 5,000 units EVERY 12 HOURS SUBQ 10/17/18 09:00 11/10/18 20:59 10/18/18 20:13 Hydrocortisone (Solu-CORTEF) 25 mg EVERY 8 HOURS IV 10/17/18 22:00 11/10/18 21:59 10/18/18 20:10 Metoprolol Tartrate (Lopressor) 25 mg Q12HR ORAL 10/18/18 09:00 11/17/18 08:59 10/18/18 20:11 Potassium Chloride 100 ml @ 100 mls/hr Q1HR IVPB 10/18/18 21:00 10/18/18 21:59 10/18/18 21:12 Potassium Chloride (K-Dur) 40 meq TWICE A DAY GT 10/17/18 09:00 11/15/18 17:59 10/18/18 17:53 Jordy Lou MD Oct 18, 2018 21:24
--- NOTE | 2018-10-18 23:45 | Cardiology Progress Note ---
Assessment/Plan Assessment/Plan 1. Septic shock,resolved, due to B/L pneumonia. 2. Dyspnea due to B/L pneumonia, 2D echo revealing + wall motion abnormalities in the septal wall, ? ischemic CM, LVEF ~45%. 3. CVA with severe debilitation, consider ASA and statins. 4. Dysphagia, s/p PEG placement. 5. VDRF, s/p tracheostomy placement. 6. Sinus tachycardia, continue metoprolol 25mg bid. Subjective Subjective Sinus rhythm at rate of 95. On T-piece, FiO2 30%. Objective Last 24 Hour Vital Signs Date Time Temp Pulse Resp B/P (MAP) Pulse Ox O2 Delivery O2 Flow Rate FiO2 10/18/18 21:09 T-piece 8.0 30 10/18/18 21:08 97 T-piece 8.0 30 10/18/18 21:00 Trach Collar 8.0 Trach Collar 8.0 10/18/18 20:51 95 18 99 T-piece 8.0 30 10/18/18 20:41 97.7 10/18/18 20:40 103 16 97 T-piece 10.0 35 10/18/18 20:11 105 122/75 10/18/18 20:00 103.5 105 19 122/75 (91) 97 10/18/18 20:00 104 10/18/18 20:00 8.0 30 10/18/18 16:00 98.2 81 20 103/62 (76) 97 10/18/18 16:00 8.0 30 10/18/18 15:50 91 10/18/18 12:38 81 16 99 T-piece 8.0 30 10/18/18 12:38 T-piece 8.0 30 10/18/18 12:38 98 T-piece 8.0 30 10/18/18 12:28 85 15 100 T-piece 10.0 35 10/18/18 12:05 79 10/18/18 12:00 97.9 76 20 108/61 (77) 99 10/18/18 12:00 10.0 35 10/18/18 09:00 Trach Collar 8.0 Trach Collar 8.0 10/18/18 08:31 97 110/64 10/18/18 08:08 92 24 96 T-piece 10.0 35 10/18/18 08:00 10.0 35 10/18/18 08:00 97.9 97 20 110/64 (79) 97 10/18/18 07:54 T-piece 12.0 40 10/18/18 07:54 98 T-piece 12.0 40 10/18/18 07:54 90 24 98 T-piece 12.0 40 10/18/18 07:43 86 10/18/18 04:00 99.1 96 19 111/59 (76) 96 10/18/18 04:00 8.0 30 10/18/18 04:00 99 10/18/18 01:23 115 22 98 T-piece 8.0 30 10/18/18 01:13 T-piece 10.0 40 10/18/18 01:13 114 22 95 T-piece 10.0 40 10/18/18 01:13 95 T-piece 10.0 40 10/18/18 00:00 8.0 30 10/18/18 00:00 127 10/18/18 00:00 102.4 115 19 113/59 (77) 97 Intake and Output 10/17/18 10/18/18 18:59 06:59 Intake Total 1200 ml 150 ml Output Total 1000 ml Balance 1200 ml -850 ml Intake Free Water 600 ml 100 ml Tube Feeding 600 ml 50 ml Output Urine Total 1000 ml 2D Echo: LVEF 45%, Septal wall hypokinesia, Grade I LVDD Laboratory Tests Test 10/18/18 05:30 White Blood Count 12.2 K/UL (4.8-10.8) H Red Blood Count 2.50 M/UL (4.70-6.10) L Hemoglobin 8.0 G/DL (14.2-18.0) L Hematocrit 23.6 % (42.0-52.0) L Mean Corpuscular Volume 94 FL (80-99) Mean Corpuscular Hemoglobin 32.0 PG (27.0-31.0) H Mean Corpuscular Hemoglobin Concent 33.9 G/DL (32.0-36.0) Red Cell Distribution Width 14.4 % (11.6-14.8) Platelet Count 150 K/UL (150-450) Mean Platelet Volume 7.5 FL (6.5-10.1) Neutrophils (%) (Auto) 49.7 % (45.0-75.0) Lymphocytes (%) (Auto) 40.3 % (20.0-45.0) Monocytes (%) (Auto) 9.2 % (1.0-10.0) Eosinophils (%) (Auto) 0.0 % (0.0-3.0) Basophils (%) (Auto) 0.8 % (0.0-2.0) Sodium Level 146 MMOL/L (136-145) H Potassium Level 2.4 MMOL/L (3.5-5.1) *L Chloride Level 108 MMOL/L (98-107) H Carbon Dioxide Level 35 MMOL/L (21-32) H Anion Gap 3 mmol/L (5-15) L Blood Urea Nitrogen 19 mg/dL (7-18) H Creatinine 1.0 MG/DL (0.55-1.30) Estimat Glomerular Filtration Rate > 60 mL/min (>60) Glucose Level 229 MG/DL (74-106) H Calcium Level 7.7 MG/DL (8.5-10.1) L Phosphorus Level 2.8 MG/DL (2.5-4.9) Magnesium Level 1.7 MG/DL (1.8-2.4) L Total Bilirubin 0.3 MG/DL (0.2-1.0) Direct Bilirubin < 0.1 MG/DL (0.0-0.3) Aspartate Amino Transf (AST/SGOT) 28 U/L (15-37) Alanine Aminotransferase (ALT/SGPT) 30 U/L (12-78) Alkaline Phosphatase 95 U/L (46-116) Total Protein 6.1 G/DL (6.4-8.2) L Albumin 2.2 G/DL (3.4-5.0) L Objective HEENT: Atraumatic, bitemporal wasting, dry mucosal membranes, PERRLA NECK: cannot assess JVP, tracheostomy tube in place. HEART: Regular rate and rhythm. Tachycardic. No murmurs, gallops or rubs. Lungs: Bibasilar crackles. ABDOMEN: Soft, NT/ND, + BS. G-tube in place. EXTREMITIES: No edema, clubbing or cyanosis. NEUROLOGIC: Nonresponsive, vegetative state. Davy Estrada MD Oct 18, 2018 23:45
[2018-10-19] VITALS (7 sets, daily range): BP systolic 82–138; BP diastolic 52–84
[2018-10-19] MEDS: Acetaminophen 650mg/20.3ml NG PRN ×2 (01:11→06:04)
[2018-10-19] MEDS: Albuterol/Ipratropium 3ml neb HHN SCH ×4 (01:14→19:39)
[2018-10-19 06:40] LABS: HEMATOCRIT 27.4 % (42.0-52.0); HEMOGLOBIN 9.3 G/DL (14.2-18.0); MEAN CORPUSCULAR VOLUME 94 FL (80-99); PLATELET COUNT 132 K/UL (150-450); RED BLOOD COUNT 2.92 M/UL (4.70-6.10); RED CELL DISTRIBUTION WIDTH 15.1 % (11.6-14.8); WHITE BLOOD COUNT 21.8 K/UL (4.8-10.8)
--- NOTE | 2018-10-19 07:17 | NUR ---
HAND-OFF: Report given to KOLE Kong. Endorsed pts stomach residual and temperature. Pt currently on cooling device.
[2018-10-19 07:23] LABS: ANION GAP 7 mmol/L (5-15); BLOOD UREA NITROGEN 14 mg/dL (7-18); CALCIUM 8.7 MG/DL (8.5-10.1); CARBON DIOXIDE 28 MMOL/L (21-32); CHLORIDE 98 MMOL/L (98-107); SODIUM 133 MMOL/L (136-145)
--- NOTE | 2018-10-19 07:29 | NUR ---
NURSE NOTES: I received the patient resting in bed. Patient nonverbal. Patient does not display any signs of distress or SOB. Bed in the lowest position and call light within reach. I will continue to monitor the patient and implement care.
[2018-10-19] MEDS: Acetylcysteine 20% Soln 4ml HHN SCH (07:34)
[2018-10-19] MEDS: Hydrocortisone 100mg Inj IV SCH ×2 (08:34→17:07)
[2018-10-19] MEDS: Metoprolol 25mg tab ORAL SCH ×2 (08:34→21:00)
[2018-10-19] MEDS: Heparin 5000 units/ml inj SUBQ SCH ×2 (08:35→21:43)
--- NOTE | 2018-10-19 08:36 | NUR ---
NURSE NOTES: Patient's platelets are 132 this morning. RN contacted Dr. Aaron about administering heparin and he said to give the heparin.
[2018-10-19] MEDS ORDERED: Metoclopramide 10mg/2ml Inj IVP PRN ×2 (09:45)
--- NOTE | 2018-10-19 09:48 | NUR ---
RADIOLOGY DEPT CHEST X-RAY DONE.-P.DYE
--- NOTE | 2018-10-19 10:01 | NUR ---
CASE MANAGEMENT:REVIEW 10/19/18 SI: SEVERE SEPSIS. PNA. UTI TRACH AND G-TUBE 102.7 88 20 112/80 98% ON 8L @ 30% FIO2 VIA T-PIECE WBC+21.8 H/H-9.3/27.4 IS: IV SOLUCORTEF BID MUCOMYST HHN TID DUONEB HHN Q6HRS RTC LOPRESSOR GT Q12 : TELEMETRY STATUS DCP; FROM [facility]: OBSERVE OFF ANTIBIOTICS
--- NOTE | 2018-10-19 10:10 | NUR ---
DISCHARGE PLANNING [employer] OPERATOR CALLED [facility] AND SPOKE WITH YIMI GELLER, THEY WILL TAKE PATIENT BACK IF DISCHARGED TOMORROW CLINICALS FAXED TO [facility]
--- NOTE | 2018-10-19 10:11 | NUR ---
*-* DISCHARGE PLANNING *-* PATIENT HAS BEEN REFERRED BACK TO: [facility] P:[phone] F:[phone]
--- NOTE | 2018-10-19 10:23 | NUR ---
NURSE NOTES: I contacted Dr. Aaron about patient's elevated blood sugar level. Patient is on Vital and solu-medrol. I asked the if he wants to order blood sugar checks and coverage. Patient resting in bed and does not display any signs of distress or SOB.
--- NOTE | 2018-10-19 10:32 | GI Progress Note ---
Assessment/Plan Problems: (1) Gastrostomy tube dependent ICD Codes: Z93.1 - Gastrostomy status SNOMED: 117268216, 440037043 (2) Anemia ICD Codes: D64.9 - Anemia, unspecified SNOMED: 647438678 (3) Iron deficiency ICD Codes: E61.1 - Iron deficiency SNOMED: 17907581 (4) Dehydration ICD Codes: E86.0 - Dehydration SNOMED: 65087306 (5) Feeding by G-tube ICD Codes: Z93.1 - Gastrostomy status SNOMED: 222032245, 605319565, 718245037 Status: unchanged Status Narrative Discussed with Dr. Dixon Assessment/Plan Anemia workup reviewed. Iron deficiency. OB stool negative. G-tube dependent Rectal tube present Cdiff negative G-tube feeding per RD to goal Reglan for GI motility if needed, reported high residuals monitor H&H, as needed transfusions Antibiotics venofer No plans for GI procedures unless urgent Follow labs The patient was seen and examined at bedside and all new and available data was reviewed in the patients chart. I agree with the above findings, impression and plan. (Patient seen earlier today. Signature stamp does not reflect patient encounter time.). - Gerson Dixon MD Subjective Subjective limited Objective Last 24 Hour Vital Signs Date Time Temp Pulse Resp B/P (MAP) Pulse Ox O2 Delivery O2 Flow Rate FiO2 10/19/18 09:00 Trach Collar 8.0 Trach Collar 8.0 10/19/18 08:34 88 112/80 10/19/18 08:00 8.0 30 10/19/18 08:00 99.8 88 20 112/80 (91) 98 10/19/18 07:45 98 21 100 T-piece 8.0 30 10/19/18 07:34 90 22 95 T-piece 8.0 30 10/19/18 07:34 95 T-piece 8.0 30 10/19/18 07:34 T-piece 8.0 30 10/19/18 06:34 102.7 10/19/18 04:00 8.0 30 10/19/18 04:00 101.5 84 14 123/84 (97) 100 10/19/18 04:00 111 10/19/18 01:25 112 20 98 T-piece 8.0 30 10/19/18 01:15 T-piece 8.0 30 10/19/18 01:15 108 20 97 T-piece 10.0 35 10/19/18 01:14 96 T-piece 8.0 30 10/19/18 00:48 104.5 10/19/18 00:00 116 10/19/18 00:00 104.2 120 18 138/81 (100) 98 10/18/18 21:09 T-piece 8.0 30 10/18/18 21:08 97 T-piece 8.0 30 10/18/18 21:00 Trach Collar 8.0 Trach Collar 8.0 10/18/18 20:51 95 18 99 T-piece 8.0 30 10/18/18 20:40 103 16 97 T-piece 10.0 35 10/18/18 20:11 105 122/75 10/18/18 20:00 103.5 105 19 122/75 (91) 97 10/18/18 20:00 104 10/18/18 20:00 8.0 30 10/18/18 16:00 98.2 81 20 103/62 (76) 97 10/18/18 16:00 8.0 30 10/18/18 15:50 91 10/18/18 12:38 81 16 99 T-piece 8.0 30 10/18/18 12:38 T-piece 8.0 30 10/18/18 12:38 98 T-piece 8.0 30 10/18/18 12:28 85 15 100 T-piece 10.0 35 10/18/18 12:05 79 10/18/18 12:00 97.9 76 20 108/61 (77) 99 10/18/18 12:00 10.0 35 Intake and Output 10/18/18 10/19/18 19:00 07:00 Intake Total 1050 ml Output Total 1400 ml 1350 ml Balance -350 ml -1350 ml Intake Free Water 450 ml Tube Feeding 600 ml Output Urine Total 1400 ml 1350 ml Laboratory Tests Test 10/19/18 05:47 White Blood Count 21.8 K/UL (4.8-10.8) #H Red Blood Count 2.92 M/UL (4.70-6.10) L Hemoglobin 9.3 G/DL (14.2-18.0) L Hematocrit 27.4 % (42.0-52.0) L Mean Corpuscular Volume 94 FL (80-99) Mean Corpuscular Hemoglobin 32.0 PG (27.0-31.0) H Mean Corpuscular Hemoglobin Concent 34.0 G/DL (32.0-36.0) Red Cell Distribution Width 15.1 % (11.6-14.8) H Platelet Count 132 K/UL (150-450) L Mean Platelet Volume 8.6 FL (6.5-10.1) Neutrophils (%) (Auto) % (45.0-75.0) Lymphocytes (%) (Auto) % (20.0-45.0) Monocytes (%) (Auto) % (1.0-10.0) Eosinophils (%) (Auto) % (0.0-3.0) Basophils (%) (Auto) % (0.0-2.0) Neutrophils % (Manual) Pending Lymphocytes % (Manual) Pending Platelet Estimate Pending Platelet Morphology Pending Sodium Level 133 MMOL/L (136-145) L Potassium Level 4.0 MMOL/L (3.5-5.1) # Chloride Level 98 MMOL/L (98-107) Carbon Dioxide Level 28 MMOL/L (21-32) Anion Gap 7 mmol/L (5-15) Blood Urea Nitrogen 14 mg/dL (7-18) Creatinine 1.0 MG/DL (0.55-1.30) Estimat Glomerular Filtration Rate > 60 mL/min (>60) Glucose Level 201 MG/DL (74-106) H Calcium Level 8.7 MG/DL (8.5-10.1) Phosphorus Level 2.0 MG/DL (2.5-4.9) L Magnesium Level 1.8 MG/DL (1.8-2.4) Height (Feet): 5 Height (Inches): 7.00 Weight (Pounds): 149 General Appearance: no apparent distress, alert Cardiovascular: normal rate Respiratory/Chest: other - Tracheostomy Abdominal Exam: other - Clean dry and intact Gayatri Sofia NP Oct 19, 2018 10:32
--- NOTE | 2018-10-19 10:37 | NUR ---
NURSE NOTES: A message was left for Dr. Bravo notifying him that the patient's blood culture came back positive for gram positive cocci in clusters, two bottles.
--- NOTE | 2018-10-19 11:09 | Infectious Diseases Prog Note ---
Assessment/Plan Assessment/Plan IMPRESSION: New sepsis with fever & Leukocytosis Bacteremia Urinary tract infection with E. coli treated pneumonia, acute renal failure, resolving lactic acidosis, resolving acute on chronic respiratory failure with hypoxemia, anemia, diabetes mellitus. Anemia Diarrhea, C. 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 Hypokalemia P: Start on Vancomycin & Cefepime Remove femoral line CXR UA & urine culture Subjective ROS Limited/Unobtainable: Yes Constitutional: Reports: fever, other - Bdid=801.5 Allergies: Coded Allergies: No Known Allergies (Unverified , 10/11/18) Objective Vital Signs Last 24 Hour Vital Signs Date Time Temp Pulse Resp B/P (MAP) Pulse Ox O2 Delivery O2 Flow Rate FiO2 10/19/18 09:00 Trach Collar 8.0 Trach Collar 8.0 10/19/18 08:34 88 112/80 10/19/18 08:00 8.0 30 10/19/18 08:00 99.8 88 20 112/80 (91) 98 10/19/18 07:45 98 21 100 T-piece 8.0 30 10/19/18 07:34 90 22 95 T-piece 8.0 30 10/19/18 07:34 95 T-piece 8.0 30 10/19/18 07:34 T-piece 8.0 30 10/19/18 06:34 102.7 10/19/18 04:00 8.0 30 10/19/18 04:00 101.5 84 14 123/84 (97) 100 10/19/18 04:00 111 10/19/18 01:25 112 20 98 T-piece 8.0 30 10/19/18 01:15 T-piece 8.0 30 10/19/18 01:15 108 20 97 T-piece 10.0 35 10/19/18 01:14 96 T-piece 8.0 30 10/19/18 00:48 104.5 10/19/18 00:00 116 10/19/18 00:00 104.2 120 18 138/81 (100) 98 10/18/18 21:09 T-piece 8.0 30 10/18/18 21:08 97 T-piece 8.0 30 10/18/18 21:00 Trach Collar 8.0 Trach Collar 8.0 10/18/18 20:51 95 18 99 T-piece 8.0 30 10/18/18 20:40 103 16 97 T-piece 10.0 35 10/18/18 20:11 105 122/75 10/18/18 20:00 103.5 105 19 122/75 (91) 97 10/18/18 20:00 104 10/18/18 20:00 8.0 30 10/18/18 16:00 98.2 81 20 103/62 (76) 97 10/18/18 16:00 8.0 30 10/18/18 15:50 91 10/18/18 12:38 81 16 99 T-piece 8.0 30 10/18/18 12:38 T-piece 8.0 30 10/18/18 12:38 98 T-piece 8.0 30 10/18/18 12:28 85 15 100 T-piece 10.0 35 10/18/18 12:05 79 10/18/18 12:00 97.9 76 20 108/61 (77) 99 10/18/18 12:00 10.0 35 Height (Feet): 5 Height (Inches): 7.00 Weight (Pounds): 149 HEENT: status post trach Respiratory/Chest: rhonchi - bilaterally, other - on T bar Cardiovascular: normal rate, other - R feral line Abdomen: soft, non tender, other - GT feeding Extremities: no edema Neurologic/Psychiatric: aphasia Microbiology Date/Time Source Procedure Growth Status 10/17/18 20:50 Blood Blood Culture - Preliminary Resulted Laboratory Tests Test 10/19/18 05:47 White Blood Count 21.8 K/UL (4.8-10.8) #H Red Blood Count 2.92 M/UL (4.70-6.10) L Hemoglobin 9.3 G/DL (14.2-18.0) L Hematocrit 27.4 % (42.0-52.0) L Mean Corpuscular Volume 94 FL (80-99) Mean Corpuscular Hemoglobin 32.0 PG (27.0-31.0) H Mean Corpuscular Hemoglobin Concent 34.0 G/DL (32.0-36.0) Red Cell Distribution Width 15.1 % (11.6-14.8) H Platelet Count 132 K/UL (150-450) L Mean Platelet Volume 8.6 FL (6.5-10.1) Neutrophils (%) (Auto) % (45.0-75.0) Lymphocytes (%) (Auto) % (20.0-45.0) Monocytes (%) (Auto) % (1.0-10.0) Eosinophils (%) (Auto) % (0.0-3.0) Basophils (%) (Auto) % (0.0-2.0) Neutrophils % (Manual) Pending Lymphocytes % (Manual) Pending Platelet Estimate Pending Platelet Morphology Pending Sodium Level 133 MMOL/L (136-145) L Potassium Level 4.0 MMOL/L (3.5-5.1) # Chloride Level 98 MMOL/L (98-107) Carbon Dioxide Level 28 MMOL/L (21-32) Anion Gap 7 mmol/L (5-15) Blood Urea Nitrogen 14 mg/dL (7-18) Creatinine 1.0 MG/DL (0.55-1.30) Estimat Glomerular Filtration Rate > 60 mL/min (>60) Glucose Level 201 MG/DL (74-106) H Calcium Level 8.7 MG/DL (8.5-10.1) Phosphorus Level 2.0 MG/DL (2.5-4.9) L Magnesium Level 1.8 MG/DL (1.8-2.4) Current Medications Medications (Trade) Dose Ordered Sig/Last Route PRN Reason Start Time Stop Time Status Last Admin Dose Admin Acetaminophen (Tylenol) 650 mg Q4H PRN NG for fever >100.3 10/18/18 01:30 11/17/18 01:29 10/19/18 06:04 Acetaminophen (Tylenol) 650 mg Q4H PRN RECTAL Prn Headache/Temp > 101 10/17/18 07:30 11/16/18 07:29 Acetylcysteine (Mucomyst) 100 mg TIDRT [facility] 10/19/18 13:00 11/15/18 12:59 Albuterol/ Ipratropium (Albuterol/ Ipratropium) 3 ml Q6HRT [facility] 10/19/18 13:00 10/26/18 12:59 Chlorhexidine Gluconate (Petra-Hex 2%) 1 applic DAILY@2000 TOPIC 10/17/18 20:00 11/14/18 19:59 10/18/18 20:10 Dextrose (Dextrose 50%) 25 ml Q30M PRN IV Hypoglycemia 10/19/18 10:45 11/18/18 10:44 Dextrose (Dextrose 50%) 50 ml Q30M PRN IV Hypoglycemia 10/19/18 10:45 11/18/18 10:44 Famotidine (Pepcid) 20 mg BID GT 10/19/18 09:00 11/18/18 08:59 10/19/18 08:34 Heparin Sodium (Porcine) (Heparin 5000 units/ml) 5,000 units EVERY 12 HOURS SUBQ 10/17/18 09:00 11/10/18 20:59 10/19/18 08:35 Hydrocortisone (Solu-CORTEF) 25 mg BID IV 10/19/18 09:00 11/10/18 21:59 10/19/18 08:34 Insulin Aspart (NovoLOG) EVERY 6 HOURS SUBQ 10/19/18 12:00 11/18/18 11:59 Metoclopramide HCl (Reglan) 10 mg Q8H PRN IVP Nausea & Vomiting 10/19/18 09:45 11/18/18 09:44 10/19/18 09:58 Metoprolol Tartrate (Lopressor) 25 mg Q12HR ORAL 10/18/18 09:00 11/17/18 08:59 10/19/18 08:34 Potassium Chloride (K-Dur) 40 meq TWICE A DAY GT 10/17/18 09:00 11/15/18 17:59 10/19/18 08:34 Lucas Bravo MD Oct 19, 2018 11:09
--- NOTE | 2018-10-19 11:18 | Diagnostic Imaging Report ---
Indication: Dyspnea Technique: One view of the chest Comparison: 10/11/2018 Findings: Mixed interstitial and airspace disease appears slightly increased in the right upper lobe, improved but persistent in the right lower lung, and unchanged in the left perihilar and infrahilar region. The heart size is normal. The pleural spaces are grossly clear. Linear metallic opacity projects over the left chest wall, not evident previously, possibly external to the patient. Old healed fracture deformities of the bilateral clavicles again demonstrated Impression: 15 infiltrates, as described, over 8 days Linear metallic object projects over the left chest, probably external to the patient but foreign body also possible; not evident previously. Recommend follow-up radiographs to resolution. This finding was discussed by phone with Dr. Lou at the time of interpretation
[2018-10-19] MEDS: Cefepime HCl 1 GM in D5W 55 ML IVPB SCH ×2 (12:02→21:42)
--- NOTE | 2018-10-19 12:02 | Nephrology Progress Note ---
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 Plan Plan: K and Phos IV as needed IV Pepcid continue the rest DNAR / DNI Comfort care Poor prognosis Subjective ROS Limited/Unobtainable: Yes Objective Objective Last 24 Hour Vital Signs Date Time Temp Pulse Resp B/P (MAP) Pulse Ox O2 Delivery O2 Flow Rate FiO2 10/19/18 09:00 Trach Collar 8.0 Trach Collar 8.0 10/19/18 08:34 88 112/80 10/19/18 08:00 8.0 30 10/19/18 08:00 99.8 88 20 112/80 (91) 98 10/19/18 07:45 98 21 100 T-piece 8.0 30 10/19/18 07:34 90 22 95 T-piece 8.0 30 10/19/18 07:34 95 T-piece 8.0 30 10/19/18 07:34 T-piece 8.0 30 10/19/18 06:34 102.7 10/19/18 04:00 8.0 30 10/19/18 04:00 101.5 84 14 123/84 (97) 100 10/19/18 04:00 111 10/19/18 01:25 112 20 98 T-piece 8.0 30 10/19/18 01:15 T-piece 8.0 30 10/19/18 01:15 108 20 97 T-piece 10.0 35 10/19/18 01:14 96 T-piece 8.0 30 10/19/18 00:48 104.5 10/19/18 00:00 116 10/19/18 00:00 104.2 120 18 138/81 (100) 98 10/18/18 21:09 T-piece 8.0 30 10/18/18 21:08 97 T-piece 8.0 30 10/18/18 21:00 Trach Collar 8.0 Trach Collar 8.0 10/18/18 20:51 95 18 99 T-piece 8.0 30 10/18/18 20:40 103 16 97 T-piece 10.0 35 10/18/18 20:11 105 122/75 10/18/18 20:00 103.5 105 19 122/75 (91) 97 10/18/18 20:00 104 10/18/18 20:00 8.0 30 10/18/18 16:00 98.2 81 20 103/62 (76) 97 10/18/18 16:00 8.0 30 10/18/18 15:50 91 10/18/18 12:38 81 16 99 T-piece 8.0 30 10/18/18 12:38 T-piece 8.0 30 10/18/18 12:38 98 T-piece 8.0 30 10/18/18 12:28 85 15 100 T-piece 10.0 35 10/18/18 12:05 79 Intake and Output 10/18/18 10/19/18 19:00 07:00 Intake Total 1050 ml Output Total 1400 ml 1350 ml Balance -350 ml -1350 ml Intake Free Water 450 ml Tube Feeding 600 ml Output Urine Total 1400 ml 1350 ml Laboratory Tests 10/19/18 05:47: White Blood Count 21.8#H, Red Blood Count 2.92L, Hemoglobin 9.3L, Hematocrit 27.4L, Mean Corpuscular Volume 94, Mean Corpuscular Hemoglobin 32.0H, Mean Corpuscular Hemoglobin Concent 34.0, Red Cell Distribution Width 15.1H, Platelet Count 132L, Mean Platelet Volume 8.6, Neutrophils (%) (Auto) , Lymphocytes (%) (Auto) , Monocytes (%) (Auto) , Eosinophils (%) (Auto) , Basophils (%) (Auto) , Neutrophils % (Manual) [Pending], Lymphocytes % (Manual) [Pending], Platelet Estimate [Pending], Platelet Morphology [Pending], Sodium Level 133L, Potassium Level 4.0#, Chloride Level 98, Carbon Dioxide Level 28, Anion Gap 7, Blood Urea Nitrogen 14, Creatinine 1.0, Estimat Glomerular Filtration Rate > 60, Glucose Level 201H, Calcium Level 8.7, Phosphorus Level 2.0L, Magnesium Level 1.8 Height (Feet): 5 Height (Inches): 7.00 Weight (Pounds): 149 General Appearance: no apparent distress Objective no change Clint Piper MD Oct 19, 2018 12:02
[2018-10-19] MEDS: NovoLOG Insulin Flexpen SUBQ SCH ×2 (12:03→17:24)
--- NOTE | 2018-10-19 12:10 | NUR ---
RD ASSESSMENT & RECOMMENDATIONS SEE CARE ACTIVITY FOR COMPLETE ASSESSMENT DAILY ESTIMATED NEEDS: Needs based on Critical care, wound 57.7kg 22-30 kcals/kg 5889-3302 total kcals 1.25-2 g protein/kg 72-115 g total protein 25-30 mL/kg 1291-0440 total fluid mLs NUTRITION DIAGNOSIS: 1) Swallowing difficulty r/t respiratory status as evidenced by pt is vent dep via trach, PEG dep for all nutritional needs 2) Increased kcal and protein needs r/t wound healing and underweight status as evidenced by pt w/ stage 2 sacral wound, pt is 86% [place] Body Weight w/ generalized mild to moderate wasting. 3) Altered nutrition related lab values R/T diabetes, on steroidal med, clinical condition as evidenced by elev BGs ([phone]) pt on Solucortef, A1C of 9.1, low phos (2.0), febrile w/ tmax 104.5. CURRENT TF:Vital AF 1.2 @50ml/hr x24 hrs -> HELD FOR RESIDUALS 200ML LAST NIGHT ENTERAL NUTRITION RECOMMENDATIONS: VITAL AF 1.2 @50ml/hr x24 hrs to provide 1200ml, 1440 kcal (25kcal/kg), 90g prot (1.55g/kg), 973ml free H2O - As medically appropriate, resume TF @ 20ml/hr x 6 hrs, advance slowly 10ml q 4-6 hrs as tolerated to goal rate. - Flush per MD. HOB over 30 degrees ADDITIONAL RECOMMENDATIONS: 1) RE-calibrate bed scale w/ added P200 mattress + pump 2) Rec accucheck w/ SSI + long acting insulin for improved BG control - BGs 200's, 300's, h/o DM w/ A1C of 9.1 + pt on steroidal med 3) Wound care: add JANUARY BID 4) Monitor lytes, replete as needed (low phos) 5) Monitor residuals, TF tolerance- Reglan added 10/19
[2018-10-19] MEDS ORDERED: Vancomycin 1.5gm/D5W 275ml IVPB ONE (13:00)
--- NOTE | 2018-10-19 14:07 | Surgery Progress Note ---
Surgery Progress Note Subjective Additional Comments no acute events. stable. Objective Last 24 Hour Vital Signs Date Time Temp Pulse Resp B/P (MAP) Pulse Ox O2 Delivery O2 Flow Rate FiO2 10/19/18 13:41 87 96/67 (77) 10/19/18 13:10 100 T-piece 8.0 30 10/19/18 13:10 T-piece 8.0 30 10/19/18 13:10 97 24 100 T-piece 8.0 30 10/19/18 12:00 8.0 30 10/19/18 12:00 96.3 78 20 82/52 (62) 99 10/19/18 09:00 Trach Collar 8.0 Trach Collar 8.0 10/19/18 08:34 88 112/80 10/19/18 08:00 8.0 30 10/19/18 08:00 99.8 88 20 112/80 (91) 98 10/19/18 07:45 98 21 100 T-piece 8.0 30 10/19/18 07:34 90 22 95 T-piece 8.0 30 10/19/18 07:34 95 T-piece 8.0 30 10/19/18 07:34 T-piece 8.0 30 10/19/18 06:34 102.7 10/19/18 04:00 8.0 30 10/19/18 04:00 101.5 84 14 123/84 (97) 100 10/19/18 04:00 111 10/19/18 01:25 112 20 98 T-piece 8.0 30 10/19/18 01:15 T-piece 8.0 30 10/19/18 01:15 108 20 97 T-piece 10.0 35 10/19/18 01:14 96 T-piece 8.0 30 10/19/18 00:48 104.5 10/19/18 00:00 116 10/19/18 00:00 104.2 120 18 138/81 (100) 98 10/18/18 21:09 T-piece 8.0 30 10/18/18 21:08 97 T-piece 8.0 30 10/18/18 21:00 Trach Collar 8.0 Trach Collar 8.0 10/18/18 20:51 95 18 99 T-piece 8.0 30 10/18/18 20:40 103 16 97 T-piece 10.0 35 10/18/18 20:11 105 122/75 10/18/18 20:00 103.5 105 19 122/75 (91) 97 10/18/18 20:00 104 10/18/18 20:00 8.0 30 10/18/18 16:00 98.2 81 20 103/62 (76) 97 10/18/18 16:00 8.0 30 10/18/18 15:50 91 I&O Intake and Output 10/18/18 10/19/18 19:00 07:00 Intake Total 1050 ml Output Total 1400 ml 1350 ml Balance -350 ml -1350 ml Intake Free Water 450 ml Tube Feeding 600 ml Output Urine Total 1400 ml 1350 ml Dressing: other Wound: other Drains: other Cardiovascular: RSR Respiratory: clear Abdomen: soft, non-tender, present bowel sounds, non-distended Extremities: no tenderness, no cyanosis Laboratory Tests Test 10/19/18 05:47 White Blood Count 21.8 K/UL (4.8-10.8) #H Red Blood Count 2.92 M/UL (4.70-6.10) L Hemoglobin 9.3 G/DL (14.2-18.0) L Hematocrit 27.4 % (42.0-52.0) L Mean Corpuscular Volume 94 FL (80-99) Mean Corpuscular Hemoglobin 32.0 PG (27.0-31.0) H Mean Corpuscular Hemoglobin Concent 34.0 G/DL (32.0-36.0) Red Cell Distribution Width 15.1 % (11.6-14.8) H Platelet Count 132 K/UL (150-450) L Mean Platelet Volume 8.6 FL (6.5-10.1) Neutrophils (%) (Auto) % (45.0-75.0) Lymphocytes (%) (Auto) % (20.0-45.0) Monocytes (%) (Auto) % (1.0-10.0) Eosinophils (%) (Auto) % (0.0-3.0) Basophils (%) (Auto) % (0.0-2.0) Differential Total Cells Counted 100 Neutrophils % (Manual) 59 % (45-75) Lymphocytes % (Manual) 38 % (20-45) Monocytes % (Manual) 2 % (1-10) Eosinophils % (Manual) 0 % (0-3) Basophils % (Manual) 0 % (0-2) Myelocytes % 1 % (0-0) H Band Neutrophils 0 % (0-8) Platelet Estimate Decreased L Platelet Morphology Normal Red Blood Cell Morphology Normal Sodium Level 133 MMOL/L (136-145) L Potassium Level 4.0 MMOL/L (3.5-5.1) # Chloride Level 98 MMOL/L (98-107) Carbon Dioxide Level 28 MMOL/L (21-32) Anion Gap 7 mmol/L (5-15) Blood Urea Nitrogen 14 mg/dL (7-18) Creatinine 1.0 MG/DL (0.55-1.30) Estimat Glomerular Filtration Rate > 60 mL/min (>60) Glucose Level 201 MG/DL (74-106) H Calcium Level 8.7 MG/DL (8.5-10.1) Phosphorus Level 2.0 MG/DL (2.5-4.9) L Magnesium Level 1.8 MG/DL (1.8-2.4) Plan Problems: (1) Severe sepsis Assessment & Plan: leukocytosis resolved on IV Abx labs noted uop okay rx as written dvt ppx (2) Multiple wounds Assessment & Plan: Pt presents with partial thickness pressure injuries to R and L gluteal clefts and an area at sacrococcygeal that is dark and indurated. Wounds present on admission. L buttocks partial thickness wound moist and viable .Edges adherent and flat .Non-blanchable erythema periwound. (L)3.9cm x (W)3.5cm. R gluteal cleft partial thickness pressure injury.Wound bed moist and viable.edges adhrent and flat .Non-blanchable erythema periwound (L)0.4cm x (W) 0.5cm. Bilat heels boggy but blanchable. Non-blanchable erythema noted to lateral R heel. Tx.Plan: Apply Moisture Barrier Paste to R and L buttocks .Cover with Optifoam drsg .Change daily and prn. Apply Cavilon Skin Barrier to R and L heels and Malleoli.Cover each site with Optifoam drsgs .Change every 7 days and PRN. APM/CLINT mattress. Reposition at least every 2hours or as tolerated. Off-load heels with pillow. Monroe Reynaga Oct 19, 2018 14:07
[2018-10-19 14:41] LABS: APPEARANCE,URINE CLEAR; BILIRUBIN, URINE NEGATIVE (NEGATIVE); COLOR,URINE PALE YELLOW; GLUCOSE, URINE (UA) 3+ (NEGATIVE); KETONES,URINE NEGATIVE (NEGATIVE); LEUKOCYTE ESTERASE ,URINE NEGATIVE (NEGATIVE); NITRITE,URINE NEGATIVE (NEGATIVE); PH,URINE 5 (4.5-8.0); PROTEIN,URINE NEGATIVE (NEGATIVE); UROBILINOGEN,URINE NORMAL MG/DL (0.0-1.0)
[2018-10-19] MEDS ORDERED: Sodium Phosphate 30 MM in NS 275 ML IVPB SCH (15:00)
--- NOTE | 2018-10-19 15:43 | General Progress Note ---
Assessment/Plan Problem List: (1) Cerebral infarction ICD Codes: I63.9 - Cerebral infarction, unspecified SNOMED: 594241896 (2) Renal failure ICD Codes: N19 - Unspecified kidney failure SNOMED: 26961116 Qualifiers: Qualified Codes: N17.9 - Acute kidney failure, unspecified (3) Encephalopathy ICD Codes: G93.40 - Encephalopathy, unspecified SNOMED: 62367831 (4) Lactic acid acidosis ICD Codes: E87.2 - Acidosis SNOMED: 90910427 (5) Tracheostomy care ICD Codes: Z43.0 - Encounter for attention to tracheostomy SNOMED: 446503892 (6) LUZ MARIA (acute kidney injury) ICD Codes: N17.9 - Acute kidney failure, unspecified SNOMED: 69919218 (7) DNAR (do not attempt resuscitation) ICD Codes: Z66 - Do not resuscitate SNOMED: 416682969 (8) Dehydration ICD Codes: E86.0 - Dehydration SNOMED: 38004210 (9) Iron deficiency ICD Codes: E61.1 - Iron deficiency SNOMED: 83510170 Status: progressing Assessment/Plan afebrile intermittent fever pna sepsis resp failure trach Subjective ROS Limited/Unobtainable: Yes Constitutional: Reports: no symptoms Allergies: Coded Allergies: No Known Allergies (Unverified , 10/11/18) Objective Last 24 Hour Vital Signs Date Time Temp Pulse Resp B/P (MAP) Pulse Ox O2 Delivery O2 Flow Rate FiO2 10/19/18 13:41 87 96/67 (77) 10/19/18 13:22 97 23 99 T-piece 8.0 30 10/19/18 13:10 100 T-piece 8.0 30 10/19/18 13:10 T-piece 8.0 30 10/19/18 13:10 97 24 100 T-piece 8.0 30 10/19/18 12:00 8.0 30 10/19/18 12:00 96.3 78 20 82/52 (62) 99 10/19/18 11:57 82 10/19/18 09:00 Trach Collar 8.0 Trach Collar 8.0 10/19/18 08:34 88 112/80 10/19/18 08:00 8.0 30 10/19/18 08:00 99.8 88 20 112/80 (91) 98 10/19/18 07:45 98 21 100 T-piece 8.0 30 10/19/18 07:39 96 10/19/18 07:34 90 22 95 T-piece 8.0 30 10/19/18 07:34 95 T-piece 8.0 30 10/19/18 07:34 T-piece 8.0 30 10/19/18 06:34 102.7 10/19/18 04:00 8.0 30 10/19/18 04:00 101.5 84 14 123/84 (97) 100 10/19/18 04:00 111 10/19/18 01:25 112 20 98 T-piece 8.0 30 10/19/18 01:15 T-piece 8.0 30 10/19/18 01:15 108 20 97 T-piece 10.0 35 10/19/18 01:14 96 T-piece 8.0 30 10/19/18 00:48 104.5 10/19/18 00:00 116 10/19/18 00:00 104.2 120 18 138/81 (100) 98 10/18/18 21:09 T-piece 8.0 30 10/18/18 21:08 97 T-piece 8.0 30 10/18/18 21:00 Trach Collar 8.0 Trach Collar 8.0 10/18/18 20:51 95 18 99 T-piece 8.0 30 10/18/18 20:40 103 16 97 T-piece 10.0 35 10/18/18 20:11 105 122/75 10/18/18 20:00 103.5 105 19 122/75 (91) 97 10/18/18 20:00 104 10/18/18 20:00 8.0 30 10/18/18 16:00 98.2 81 20 103/62 (76) 97 10/18/18 16:00 8.0 30 10/18/18 15:50 91 Intake and Output 10/18/18 10/19/18 19:00 07:00 Intake Total 1050 ml Output Total 1400 ml 1350 ml Balance -350 ml -1350 ml Intake Free Water 450 ml Tube Feeding 600 ml Output Urine Total 1400 ml 1350 ml Laboratory Tests 10/19/18 05:47: White Blood Count 21.8#H, Red Blood Count 2.92L, Hemoglobin 9.3L, Hematocrit 27.4L, Mean Corpuscular Volume 94, Mean Corpuscular Hemoglobin 32.0H, Mean Corpuscular Hemoglobin Concent 34.0, Red Cell Distribution Width 15.1H, Platelet Count 132L, Mean Platelet Volume 8.6, Neutrophils (%) (Auto) , Lymphocytes (%) (Auto) , Monocytes (%) (Auto) , Eosinophils (%) (Auto) , Basophils (%) (Auto) , Differential Total Cells Counted 100, Neutrophils % ( Manual) 59, Lymphocytes % (Manual) 38, Monocytes % (Manual) 2, Eosinophils % ( Manual) 0, Basophils % (Manual) 0, Myelocytes % 1H, Band Neutrophils 0, Platelet Estimate DecreasedL, Platelet Morphology Normal, Red Blood Cell Morphology Normal, Sodium Level 133L, Potassium Level 4.0#, Chloride Level 98, Carbon Dioxide Level 28, Anion Gap 7, Blood Urea Nitrogen 14, Creatinine 1.0, Estimat Glomerular Filtration Rate > 60, Glucose Level 201H, Calcium Level 8.7, Phosphorus Level 2.0L, Magnesium Level 1.8 10/19/18 13:50: Urine Color Pale yellow, Urine Appearance Clear, Urine pH 5, Urine Specific [place] 1.010, Urine Protein Negative, Urine Glucose (UA) 3+H, Urine Ketones Negative, Urine Blood Negative, Urine Nitrite Negative, Urine Bilirubin Negative , Urine Urobilinogen Normal, Urine Leukocyte Esterase Negative Height (Feet): 5 Height (Inches): 7.00 Weight (Pounds): 149 Neck: supple Cardiovascular: normal rate Respiratory/Chest: lungs clear Abdomen: soft Lula Aaron MD Oct 19, 2018 15:43
--- NOTE | 2018-10-19 16:15 | NUR ---
HAND-OFF: Report given to KOLE Palacio.
--- NOTE | 2018-10-19 19:04 | NUR ---
HAND-OFF: Report given to ALDO SHARIF.
--- NOTE | 2018-10-19 19:10 | NUR ---
NURSE NOTES: Received report from KOLE Palacio. Patient in bed asleep showing no signs of acute distress. Vitals table. IV line patent and intact. GT patent and intact. Castrejon patent intact and draining. Rectal tube patent and intact. Respiration even and non labored on 8L via trach. Bed in lowest position possible. Will continue plan of care. Addendum: 10/19/18 at 2348 by IMELDA CARLSON RN Picc line d/c today 10/19. No bleeding noted. Dressing intact.
--- NOTE | 2018-10-19 20:16 | Pulmonology Progress Note ---
Assessment/Plan Problems: (1) Cerebral infarction (2) Encephalopathy (3) Severe sepsis (4) Lactic acid acidosis (5) Tracheostomy care (6) Feeding by G-tube (7) DNAR (do not attempt resuscitation) Assessment/Plan -ABX per ID -CVC removed -Monitor fever curve -Optimize pulmonary hygiene/mobilize as tolerated -Continue TC -Titrate O2 -HHN's and NAC -TF's as tolerated -Continue HC 25 TID and taper -Monitor volumes and renal function -DNAR -Dispo planning Subjective Allergies: Coded Allergies: No Known Allergies (Unverified , 10/11/18) Subjective Tm 102.5 4/4 GPC in blood, CVC to be removed WCt inc hypotensive No cough no SOB Objective Last 24 Hour Vital Signs Date Time Temp Pulse Resp B/P (MAP) Pulse Ox O2 Delivery O2 Flow Rate FiO2 10/19/18 16:00 98.2 86 20 85/60 (68) 99 10/19/18 16:00 8.0 30 10/19/18 15:17 89 10/19/18 13:41 87 96/67 (77) 10/19/18 13:22 97 23 99 T-piece 8.0 30 10/19/18 13:10 100 T-piece 8.0 30 10/19/18 13:10 T-piece 8.0 30 10/19/18 13:10 97 24 100 T-piece 8.0 30 10/19/18 12:00 8.0 30 10/19/18 12:00 96.3 78 20 82/52 (62) 99 10/19/18 11:57 82 10/19/18 09:00 Trach Collar 8.0 Trach Collar 8.0 10/19/18 08:34 88 112/80 10/19/18 08:00 8.0 30 10/19/18 08:00 99.8 88 20 112/80 (91) 98 10/19/18 07:45 98 21 100 T-piece 8.0 30 10/19/18 07:39 96 10/19/18 07:34 90 22 95 T-piece 8.0 30 10/19/18 07:34 95 T-piece 8.0 30 10/19/18 07:34 T-piece 8.0 30 10/19/18 06:34 102.7 10/19/18 04:00 8.0 30 10/19/18 04:00 101.5 84 14 123/84 (97) 100 10/19/18 04:00 111 10/19/18 01:25 112 20 98 T-piece 8.0 30 10/19/18 01:15 T-piece 8.0 30 10/19/18 01:15 108 20 97 T-piece 10.0 35 10/19/18 01:14 96 T-piece 8.0 30 10/19/18 00:48 104.5 10/19/18 00:00 116 10/19/18 00:00 104.2 120 18 138/81 (100) 98 10/18/18 21:09 T-piece 8.0 30 10/18/18 21:08 97 T-piece 8.0 30 10/18/18 21:00 Trach Collar 8.0 Trach Collar 8.0 10/18/18 20:51 95 18 99 T-piece 8.0 30 10/18/18 20:40 103 16 97 T-piece 10.0 35 Intake and Output 10/18/18 10/19/18 19:00 07:00 Intake Total 1050 ml Output Total 1400 ml 1350 ml Balance -350 ml -1350 ml Intake Free Water 450 ml Tube Feeding 600 ml Output Urine Total 1400 ml 1350 ml General Appearance: cachetic HEENT: normocephalic, atraumatic, anicteric, mucous membranes moist, status post trach Respiratory/Chest: rhonchi Cardiovascular: normal peripheral pulses, normal rate, regular rhythm Abdomen: normal bowel sounds, soft, non tender, no organomegaly, non distended , other - GT Extremities: no cyanosis, no clubbing, no edema Microbiology Date/Time Source Procedure Growth Status 10/17/18 20:50 Blood Blood Culture - Preliminary Resulted Laboratory Tests 10/19/18 05:47: White Blood Count 21.8#H, Red Blood Count 2.92L, Hemoglobin 9.3L, Hematocrit 27.4L, Mean Corpuscular Volume 94, Mean Corpuscular Hemoglobin 32.0H, Mean Corpuscular Hemoglobin Concent 34.0, Red Cell Distribution Width 15.1H, Platelet Count 132L, Mean Platelet Volume 8.6, Neutrophils (%) (Auto) , Lymphocytes (%) (Auto) , Monocytes (%) (Auto) , Eosinophils (%) (Auto) , Basophils (%) (Auto) , Differential Total Cells Counted 100, Neutrophils % ( Manual) 59, Lymphocytes % (Manual) 38, Monocytes % (Manual) 2, Eosinophils % ( Manual) 0, Basophils % (Manual) 0, Myelocytes % 1H, Band Neutrophils 0, Platelet Estimate DecreasedL, Platelet Morphology Normal, Red Blood Cell Morphology Normal, Sodium Level 133L, Potassium Level 4.0#, Chloride Level 98, Carbon Dioxide Level 28, Anion Gap 7, Blood Urea Nitrogen 14, Creatinine 1.0, Estimat Glomerular Filtration Rate > 60, Glucose Level 201H, Calcium Level 8.7, Phosphorus Level 2.0L, Magnesium Level 1.8 10/19/18 13:50: Urine Color Pale yellow, Urine Appearance Clear, Urine pH 5, Urine Specific [place] 1.010, Urine Protein Negative, Urine Glucose (UA) 3+H, Urine Ketones Negative, Urine Blood Negative, Urine Nitrite Negative, Urine Bilirubin Negative , Urine Urobilinogen Normal, Urine Leukocyte Esterase Negative Current Medications Medications (Trade) Dose Ordered Sig/Last Route PRN Reason Start Time Stop Time Status Last Admin Dose Admin Acetaminophen (Tylenol) 650 mg Q4H PRN NG for fever >100.3 10/18/18 01:30 11/17/18 01:29 10/19/18 06:04 Acetaminophen (Tylenol) 650 mg Q4H PRN RECTAL Prn Headache/Temp > 101 10/17/18 07:30 11/16/18 07:29 Acetylcysteine (Mucomyst) 100 mg TIDRT [facility] 10/19/18 13:00 11/15/18 12:59 10/19/18 19:39 Albuterol/ Ipratropium (Albuterol/ Ipratropium) 3 ml Q6HRT N 10/19/18 13:00 10/26/18 12:59 10/19/18 19:39 Cefepime HCl 1 gm/ Dextrose 55 ml @ 110 mls/hr EVERY 12 HOURS IVPB 10/19/18 12:00 10/26/18 11:59 10/19/18 12:02 Chlorhexidine Gluconate (Petra-Hex 2%) 1 applic DAILY@2000 TOPIC 10/17/18 20:00 11/14/18 19:59 10/18/18 20:10 Dextrose (Dextrose 50%) 25 ml Q30M PRN IV Hypoglycemia 10/19/18 10:45 11/18/18 10:44 Dextrose (Dextrose 50%) 50 ml Q30M PRN IV Hypoglycemia 10/19/18 10:45 11/18/18 10:44 Famotidine (Pepcid) 20 mg BID GT 10/19/18 09:00 11/18/18 08:59 10/19/18 17:06 Heparin Sodium (Porcine) (Heparin 5000 units/ml) 5,000 units EVERY 12 HOURS SUBQ 10/17/18 09:00 11/10/18 20:59 10/19/18 08:35 Hydrocortisone (Solu-CORTEF) 25 mg BID IV 10/19/18 09:00 11/10/18 21:59 10/19/18 17:07 Insulin Aspart (NovoLOG) EVERY 6 HOURS SUBQ 10/19/18 12:00 11/18/18 11:59 10/19/18 17:24 Metoclopramide HCl (Reglan) 10 mg Q8H PRN IVP Nausea & Vomiting 10/19/18 09:45 11/18/18 09:44 10/19/18 09:58 Metoprolol Tartrate (Lopressor) 25 mg Q12HR ORAL 10/18/18 09:00 11/17/18 08:59 10/19/18 08:34 Potassium Chloride (K-Dur) 40 meq TWICE A DAY GT 10/17/18 09:00 11/15/18 17:59 10/19/18 17:07 Sodium Phosphate 30 mm/Sodium Chloride 285 ml @ 47.5 mls/hr ONCE IVPB 10/19/18 15:00 10/19/18 23:59 10/19/18 16:31 Vancomycin HCl (Vanco rx to dose) 1 ea DAILY PRN MISC Per rx protocol 10/19/18 11:15 11/18/18 11:14 Vancomycin HCl 1 gm/Dextrose 275 ml @ 183.708 mls/hr Q12HR@0100,1300 IVPB 10/20/18 01:00 10/25/18 00:59 Jordy Lou MD Oct 19, 2018 20:16
[2018-10-20] VITALS: BP 102/67
[2018-10-20] MEDS: Vancomycin 1gm/D5W 275ml IVPB SCH ×4 (00:44→12:16)
[2018-10-20] MEDS: NovoLOG Insulin Flexpen SUBQ SCH ×4 (00:44→18:36)
[2018-10-20] MEDS: Albuterol/Ipratropium 3ml neb HHN SCH ×4 (01:00→20:02)
[2018-10-20] MEDS: Acetaminophen 650mg/20.3ml NG PRN ×2 (01:23→12:51)
[2018-10-20 04:00] VITALS: BP 100/66
--- NOTE | 2018-10-20 07:29 | NUR ---
HAND-OFF: Report given to KOLE Jefferson.
--- NOTE | 2018-10-20 07:30 | NUR ---
NURSE NOTES: Received report from KOLE Segura. Patient asleep. RT is at the bedside for breathing tx and suction. Castrejon intact and draining. Rectal tube intact and draining. On cooling pad. Call-light placed in easy reach. Will continue plan of care.
[2018-10-20 08:00] VITALS: BP 80/56
[2018-10-20] MEDS: Hydrocortisone 100mg Inj IV SCH ×2 (08:49→18:33)
[2018-10-20] MEDS: Cefepime HCl 1 GM in D5W 55 ML IVPB SCH ×2 (08:50→22:24)
[2018-10-20] MEDS: Heparin 5000 units/ml inj SUBQ SCH ×2 (09:00→22:25)
[2018-10-20] MEDS: Metoprolol 25mg tab ORAL SCH ×2 (09:00→21:00)
--- NOTE | 2018-10-20 10:33 | GI Progress Note ---
Assessment/Plan Problems: (1) Gastrostomy tube dependent ICD Codes: Z93.1 - Gastrostomy status SNOMED: 267874254, 604970938 (2) Anemia ICD Codes: D64.9 - Anemia, unspecified SNOMED: 280224828 (3) Iron deficiency ICD Codes: E61.1 - Iron deficiency SNOMED: 54768990 (4) Dehydration ICD Codes: E86.0 - Dehydration SNOMED: 05672728 (5) Feeding by G-tube ICD Codes: Z93.1 - Gastrostomy status SNOMED: 966098095, 007198584, 769643931 Status: stable Status Narrative Discussed with Dr. Dixon Assessment/Plan Anemia workup reviewed. Iron deficiency. OB stool negative. G-tube dependent Rectal tube present Cdiff negative G-tube feeding per RD to goal Reglan for GI motility if needed, reported high residuals monitor H&H, as needed transfusions Antibiotics venofer No plans for GI procedures unless urgent Follow labs The patient was seen and examined at bedside and all new and available data was reviewed in the patients chart. I agree with the above findings, impression and plan. (Patient seen earlier today. Signature stamp does not reflect patient encounter time.). - Gerson Dixon MD Subjective Subjective limited Objective Last 24 Hour Vital Signs Date Time Temp Pulse Resp B/P (MAP) Pulse Ox O2 Delivery O2 Flow Rate FiO2 10/20/18 09:00 89 80/56 10/20/18 09:00 Trach Collar 8.0 Trach Collar 8.0 10/20/18 08:00 8.0 30 10/20/18 08:00 97.1 89 18 80/56 (64) 97 10/20/18 07:34 87 20 99 T-piece 8.0 30 10/20/18 07:21 T-piece 8.0 30 10/20/18 07:20 99 T-piece 8.0 30 10/20/18 07:19 85 16 99 T-piece 8.0 30 10/20/18 04:00 96 10/20/18 04:00 8.0 30 10/20/18 04:00 98.7 91 18 100/66 (77) 100 10/20/18 01:53 100.7 10/20/18 01:21 T-piece 8.0 30 10/20/18 01:21 T-piece 8.0 30 10/20/18 01:19 T-piece 8.0 30 10/20/18 01:19 98 T-piece 8.0 30 10/20/18 00:00 111 10/20/18 00:00 102.2 110 18 102/67 (79) 98 10/19/18 21:00 110 107/67 10/19/18 21:00 Trach Collar 8.0 Trach Collar 8.0 10/19/18 20:00 8.0 30 10/19/18 20:00 101 10/19/18 20:00 99.0 110 18 107/77 (87) 100 10/19/18 19:47 100 20 100 T-piece 8.0 30 10/19/18 19:39 100 T-piece 8.0 30 10/19/18 19:39 103 16 99 T-piece 8.0 30 10/19/18 19:39 T-piece 8.0 30 10/19/18 16:00 98.2 86 20 85/60 (68) 99 10/19/18 16:00 8.0 30 10/19/18 15:17 89 10/19/18 13:41 87 96/67 (77) 10/19/18 13:22 97 23 99 T-piece 8.0 30 10/19/18 13:10 100 T-piece 8.0 30 10/19/18 13:10 T-piece 8.0 30 10/19/18 13:10 97 24 100 T-piece 8.0 30 10/19/18 12:00 8.0 30 10/19/18 12:00 96.3 78 20 82/52 (62) 99 10/19/18 11:57 82 Intake and Output 10/19/18 10/20/18 19:00 07:00 Intake Total 830.0 ml Output Total 1000 ml 1300 ml Balance -170.0 ml -1300 ml Intake Free Water 250 ml IV Total 330.0 ml Tube Feeding 250 ml Output Urine Total 1000 ml 1100 ml Stool Total 200 ml Laboratory Tests Test 10/19/18 13:50 Urine Color Pale yellow Urine Appearance Clear Urine pH 5 (4.5-8.0) Urine Specific [place] 1.010 (1.005-1.035) Urine Protein Negative (NEGATIVE) Urine Glucose (UA) 3+ (NEGATIVE) H Urine Ketones Negative (NEGATIVE) Urine Blood Negative (NEGATIVE) Urine Nitrite Negative (NEGATIVE) Urine Bilirubin Negative (NEGATIVE) Urine Urobilinogen Normal MG/DL (0.0-1.0) Urine Leukocyte Esterase Negative (NEGATIVE) Height (Feet): 5 Height (Inches): 7.00 Weight (Pounds): 148 General Appearance: alert, thin Cardiovascular: normal rate Respiratory/Chest: other - Tracheostomy present Abdominal Exam: GT site - Clean dry and intact Gayatri Sofia NP Oct 20, 2018 10:33
[2018-10-20 12:00] VITALS: BP 91/51
--- NOTE | 2018-10-20 12:16 | NUR ---
CASE MANAGEMENT:REVIEW 10/20/17 SI: SEVERE SEPSIS. PNA. UTI TRACH AND G-TUBE 100.0 96 20 80/56 97% ON 8L VIA TRACH COLLAR IS: IV VANCOMYCIN Q12 IV CEFEPIME Q12 IV SOLUCORTEF MUCOMYST HHN TID DUONEB HHN Q6HRS RTC : TELEMETRY STATUS DCP; FROM [facility] [facility] PLAN: RESTART ANTIBIOTICS
--- NOTE | 2018-10-20 12:25 | General Progress Note ---
Assessment/Plan Problem List: (1) Cerebral infarction ICD Codes: I63.9 - Cerebral infarction, unspecified SNOMED: 294093854 (2) Renal failure ICD Codes: N19 - Unspecified kidney failure SNOMED: 19221591 Qualifiers: Qualified Codes: N17.9 - Acute kidney failure, unspecified (3) Encephalopathy ICD Codes: G93.40 - Encephalopathy, unspecified SNOMED: 64730499 (4) Lactic acid acidosis ICD Codes: E87.2 - Acidosis SNOMED: 96287529 (5) Tracheostomy care ICD Codes: Z43.0 - Encounter for attention to tracheostomy SNOMED: 229215682 (6) LUZ MARIA (acute kidney injury) ICD Codes: N17.9 - Acute kidney failure, unspecified SNOMED: 13239090 (7) DNAR (do not attempt resuscitation) ICD Codes: Z66 - Do not resuscitate SNOMED: 958708910 (8) Dehydration ICD Codes: E86.0 - Dehydration SNOMED: 48492545 (9) Iron deficiency ICD Codes: E61.1 - Iron deficiency SNOMED: 80063884 Status: progressing Assessment/Plan no acute change no wheezing reviewed chart and labs pna sepsis resp failure trach Subjective ROS Limited/Unobtainable: Yes Allergies: Coded Allergies: No Known Allergies (Unverified , 10/11/18) Objective Last 24 Hour Vital Signs Date Time Temp Pulse Resp B/P (MAP) Pulse Ox O2 Delivery O2 Flow Rate FiO2 10/20/18 12:00 100.0 96 20 91/51 (64) 95 10/20/18 09:00 89 80/56 10/20/18 09:00 Trach Collar 8.0 Trach Collar 8.0 10/20/18 08:00 8.0 30 10/20/18 08:00 97.1 89 18 80/56 (64) 97 10/20/18 08:00 93 10/20/18 07:34 87 20 99 T-piece 8.0 30 10/20/18 07:21 T-piece 8.0 30 10/20/18 07:20 99 T-piece 8.0 30 10/20/18 07:19 85 16 99 T-piece 8.0 30 10/20/18 04:00 96 10/20/18 04:00 8.0 30 10/20/18 04:00 98.7 91 18 100/66 (77) 100 2/21/19 01:53 100.7 10/20/18 01:21 T-piece 8.0 30 10/20/18 01:21 T-piece 8.0 30 10/20/18 01:19 T-piece 8.0 30 10/20/18 01:19 98 T-piece 8.0 30 10/20/18 00:00 111 10/20/18 00:00 102.2 110 18 102/67 (79) 98 10/19/18 21:00 110 107/67 10/19/18 21:00 Trach Collar 8.0 Trach Collar 8.0 10/19/18 20:00 8.0 30 10/19/18 20:00 101 10/19/18 20:00 99.0 110 18 107/77 (87) 100 10/19/18 19:47 100 20 100 T-piece 8.0 30 10/19/18 19:39 100 T-piece 8.0 30 10/19/18 19:39 103 16 99 T-piece 8.0 30 10/19/18 19:39 T-piece 8.0 30 10/19/18 16:00 98.2 86 20 85/60 (68) 99 10/19/18 16:00 8.0 30 10/19/18 15:17 89 10/19/18 13:41 87 96/67 (77) 10/19/18 13:22 97 23 99 T-piece 8.0 30 10/19/18 13:10 100 T-piece 8.0 30 10/19/18 13:10 T-piece 8.0 30 10/19/18 13:10 97 24 100 T-piece 8.0 30 Intake and Output 10/19/18 10/20/18 19:00 07:00 Intake Total 830.0 ml Output Total 1000 ml 1300 ml Balance -170.0 ml -1300 ml Intake Free Water 250 ml IV Total 330.0 ml Tube Feeding 250 ml Output Urine Total 1000 ml 1100 ml Stool Total 200 ml Laboratory Tests 10/19/18 13:50: Urine Color Pale yellow, Urine Appearance Clear, Urine pH 5, Urine Specific [place] 1.010, Urine Protein Negative, Urine Glucose (UA) 3+H, Urine Ketones Negative, Urine Blood Negative, Urine Nitrite Negative, Urine Bilirubin Negative , Urine Urobilinogen Normal, Urine Leukocyte Esterase Negative 10/20/18 12:13: White Blood Count [Pending], Red Blood Count [Pending], Hemoglobin [Pending], Hematocrit [Pending], Mean Corpuscular Volume [Pending], Mean Corpuscular Hemoglobin [Pending], Mean Corpuscular Hemoglobin Concent [Pending], Red Cell Distribution Width [Pending], Platelet Count [Pending], Mean Platelet Volume [ Pending], Neutrophils (%) (Auto) [Pending], Lymphocytes (%) (Auto) [Pending], Monocytes (%) (Auto) [Pending], Eosinophils (%) (Auto) [Pending], Basophils (%) (Auto) [Pending], Sodium Level [Pending], Potassium Level [Pending], Chloride Level [Pending], Carbon Dioxide Level [Pending], Blood Urea Nitrogen [Pending], Creatinine [Pending], Estimat Glomerular Filtration Rate [Pending], Glucose Level [Pending], Uric Acid [Pending], Calcium Level [Pending], Phosphorus Level [Pending], Magnesium Level [Pending], Total Bilirubin [Pending], Gamma Glutamyl Transpeptidase [Pending], Aspartate Amino Transf (AST/SGOT) [Pending], Alanine Aminotransferase (ALT/SGPT) [Pending], Alkaline Phosphatase [Pending], C- Reactive Protein, Quantitative [Pending], Pro-B-Type Natriuretic Peptide [ Pending], Total Protein [Pending], Albumin [Pending], Globulin [Pending] Height (Feet): 5 Height (Inches): 7.00 Weight (Pounds): 148 General Appearance: lethargic Cardiovascular: normal rate Respiratory/Chest: lungs clear Abdomen: soft Lula Aaron MD Oct 20, 2018 12:25
[2018-10-20 12:37] LABS: HEMATOCRIT 27.5 % (42.0-52.0); HEMOGLOBIN 9.4 G/DL (14.2-18.0); MEAN CORPUSCULAR VOLUME 94 FL (80-99); PLATELET COUNT 114 K/UL (150-450); RED BLOOD COUNT 2.94 M/UL (4.70-6.10); RED CELL DISTRIBUTION WIDTH 15.5 % (11.6-14.8); WHITE BLOOD COUNT 18.8 K/UL (4.8-10.8)
[2018-10-20 13:09] LABS: ANION GAP 6 mmol/L (5-15); BLOOD UREA NITROGEN 16 mg/dL (7-18); CARBON DIOXIDE 30 MMOL/L (21-32); CHLORIDE 101 MMOL/L (98-107); CREATININE 0.8 MG/DL (0.55-1.30); POTASSIUM 3.7 MMOL/L (3.5-5.1); SODIUM 137 MMOL/L (136-145)
[2018-10-20 13:10] LABS: ALANINE AMINOTRANSFERASE 21 U/L (12-78); ALBUMIN 2.2 G/DL (3.4-5.0); ALBUMIN/GLOBULIN RATIO 0.5 (1.0-2.7); ALKALINE PHOSPHATASE 81 U/L (46-116); ASPARTATE AMINO TRANSFERASE 15 U/L (15-37); BILIRUBIN,TOTAL 0.6 MG/DL (0.2-1.0); CALCIUM 8.3 MG/DL (8.5-10.1); GAMMA GLUTAMYL TRANSPEPTIDASE 52 U/L (5-85); PHOSPHORUS 2.5 MG/DL (2.5-4.9)
--- NOTE | 2018-10-20 13:25 | Infectious Diseases Prog Note ---
Assessment/Plan Assessment/Plan IMPRESSION: New sepsis with fever & Leukocytosis Bacteremia with CoANS Urinary tract infection pneumonia, acute renal failure, resolving lactic acidosis, resolving acute on chronic respiratory failure with hypoxemia, anemia, diabetes mellitus. Anemia Diarrhea, C. 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 Hypokalemia P: Start on Vancomycin & Cefepime will f/u cultures Subjective ROS Limited/Unobtainable: Yes Constitutional: Reports: fever Cardiovascular: Reports: other - femoral line is removed Allergies: Coded Allergies: No Known Allergies (Unverified , 10/11/18) Objective Vital Signs Last 24 Hour Vital Signs Date Time Temp Pulse Resp B/P (MAP) Pulse Ox O2 Delivery O2 Flow Rate FiO2 10/20/18 12:00 8.0 30 10/20/18 12:00 100.0 96 20 91/51 (64) 95 10/20/18 09:00 89 80/56 10/20/18 09:00 Trach Collar 8.0 Trach Collar 8.0 10/20/18 08:00 8.0 30 10/20/18 08:00 97.1 89 18 80/56 (64) 97 10/20/18 08:00 93 10/20/18 07:34 87 20 99 T-piece 8.0 30 10/20/18 07:21 T-piece 8.0 30 10/20/18 07:20 99 T-piece 8.0 30 10/20/18 07:19 85 16 99 T-piece 8.0 30 10/20/18 04:00 96 10/20/18 04:00 8.0 30 10/20/18 04:00 98.7 91 18 100/66 (77) 100 10/20/18 01:53 100.7 10/20/18 01:21 T-piece 8.0 30 10/20/18 01:21 T-piece 8.0 30 10/20/18 01:19 T-piece 8.0 30 10/20/18 01:19 98 T-piece 8.0 30 10/20/18 00:00 111 10/20/18 00:00 102.2 110 18 102/67 (79) 98 10/19/18 21:00 110 107/67 10/19/18 21:00 Trach Collar 8.0 Trach Collar 8.0 10/19/18 20:00 8.0 30 10/19/18 20:00 101 10/19/18 20:00 99.0 110 18 107/77 (87) 100 10/19/18 19:47 100 20 100 T-piece 8.0 30 10/19/18 19:39 100 T-piece 8.0 30 10/19/18 19:39 103 16 99 T-piece 8.0 30 10/19/18 19:39 T-piece 8.0 30 10/19/18 16:00 98.2 86 20 85/60 (68) 99 10/19/18 16:00 8.0 30 10/19/18 15:17 89 10/19/18 13:41 87 96/67 (77) Height (Feet): 5 Height (Inches): 7.00 Weight (Pounds): 148 HEENT: status post trach Respiratory/Chest: lungs clear, other - on T bar Cardiovascular: normal rate Abdomen: soft, non tender, other - GT feeding Extremities: no edema Neurologic/Psychiatric: unresponsiveness Microbiology Date/Time Source Procedure Growth Status 10/17/18 20:50 Blood Blood Culture - Preliminary Staphylococcus Sp Coag Neg Resulted 10/19/18 03:30 Urine,Ureter/Kidney Urine Culture - Preliminary Gram Negative Bacillus 1 Resulted Laboratory Tests Test 10/19/18 13:50 10/20/18 12:13 Urine Color Pale yellow Urine Appearance Clear Urine pH 5 (4.5-8.0) Urine Specific [place] 1.010 (1.005-1.035) Urine Protein Negative (NEGATIVE) Urine Glucose (UA) 3+ (NEGATIVE) H Urine Ketones Negative (NEGATIVE) Urine Blood Negative (NEGATIVE) Urine Nitrite Negative (NEGATIVE) Urine Bilirubin Negative (NEGATIVE) Urine Urobilinogen Normal MG/DL (0.0-1.0) Urine Leukocyte Esterase Negative (NEGATIVE) White Blood Count 18.8 K/UL (4.8-10.8) H Red Blood Count 2.94 M/UL (4.70-6.10) L Hemoglobin 9.4 G/DL (14.2-18.0) L Hematocrit 27.5 % (42.0-52.0) L Mean Corpuscular Volume 94 FL (80-99) Mean Corpuscular Hemoglobin 32.1 PG (27.0-31.0) H Mean Corpuscular Hemoglobin Concent 34.3 G/DL (32.0-36.0) Red Cell Distribution Width 15.5 % (11.6-14.8) H Platelet Count 114 K/UL (150-450) L Mean Platelet Volume 8.7 FL (6.5-10.1) Neutrophils (%) (Auto) % (45.0-75.0) Lymphocytes (%) (Auto) % (20.0-45.0) Monocytes (%) (Auto) % (1.0-10.0) Eosinophils (%) (Auto) % (0.0-3.0) Basophils (%) (Auto) % (0.0-2.0) Neutrophils % (Manual) Pending Lymphocytes % (Manual) Pending Platelet Estimate Pending Platelet Morphology Pending Sodium Level 137 MMOL/L (136-145) Potassium Level 3.7 MMOL/L (3.5-5.1) Chloride Level 101 MMOL/L (98-107) Carbon Dioxide Level 30 MMOL/L (21-32) Anion Gap 6 mmol/L (5-15) Blood Urea Nitrogen 16 mg/dL (7-18) Creatinine 0.8 MG/DL (0.55-1.30) Estimat Glomerular Filtration Rate > 60 mL/min (>60) Glucose Level 211 MG/DL (74-106) H Uric Acid 2.0 MG/DL (2.6-7.2) L Calcium Level 8.3 MG/DL (8.5-10.1) L Phosphorus Level 2.5 MG/DL (2.5-4.9) Magnesium Level 2.0 MG/DL (1.8-2.4) Total Bilirubin 0.6 MG/DL (0.2-1.0) Gamma Glutamyl Transpeptidase 52 U/L (5-85) Aspartate Amino Transf (AST/SGOT) 15 U/L (15-37) Alanine Aminotransferase (ALT/SGPT) 21 U/L (12-78) Alkaline Phosphatase 81 U/L (46-116) C-Reactive Protein, Quantitative 3.7 mg/dL (0.00-0.90) H Pro-B-Type Natriuretic Peptide 1847 pg/mL (0-125) H Total Protein 6.6 G/DL (6.4-8.2) Albumin 2.2 G/DL (3.4-5.0) L Globulin 4.4 g/dL Albumin/Globulin Ratio 0.5 (1.0-2.7) L Current Medications Medications (Trade) Dose Ordered Sig/Last Route PRN Reason Start Time Stop Time Status Last Admin Dose Admin Acetaminophen (Tylenol) 650 mg Q4H PRN NG for fever >100.3 10/18/18 01:30 11/17/18 01:29 10/20/18 12:51 Acetaminophen (Tylenol) 650 mg Q4H PRN RECTAL Prn Headache/Temp > 101 10/17/18 07:30 11/16/18 07:29 Acetylcysteine (Mucomyst) 100 mg TIDRT N 10/19/18 13:00 11/15/18 12:59 10/20/18 07:18 Albuterol/ Ipratropium (Albuterol/ Ipratropium) 3 ml Q6HRT N 10/19/18 13:00 10/26/18 12:59 10/20/18 07:18 Cefepime HCl 1 gm/ Dextrose 55 ml @ 110 mls/hr EVERY 12 HOURS IVPB 10/19/18 12:00 10/26/18 11:59 10/20/18 08:50 Dextrose (Dextrose 50%) 25 ml Q30M PRN IV Hypoglycemia 10/19/18 10:45 11/18/18 10:44 Dextrose (Dextrose 50%) 50 ml Q30M PRN IV Hypoglycemia 10/19/18 10:45 11/18/18 10:44 Famotidine (Pepcid) 20 mg BID GT 10/19/18 09:00 11/18/18 08:59 10/20/18 08:49 Heparin Sodium (Porcine) (Heparin 5000 units/ml) 5,000 units EVERY 12 HOURS SUBQ 10/17/18 09:00 11/10/18 20:59 10/19/18 21:43 Hydrocortisone (Solu-CORTEF) 25 mg BID IV 10/19/18 09:00 11/10/18 21:59 10/20/18 08:49 Insulin Aspart (NovoLOG) EVERY 6 HOURS SUBQ 10/19/18 12:00 11/18/18 11:59 10/20/18 12:16 Metoclopramide HCl (Reglan) 10 mg Q8H PRN IVP Nausea & Vomiting 10/19/18 09:45 11/18/18 09:44 10/19/18 09:58 Metoprolol Tartrate (Lopressor) 25 mg Q12HR ORAL 10/18/18 09:00 11/17/18 08:59 10/19/18 08:34 Potassium Chloride (K-Dur) 40 meq TWICE A DAY GT 10/17/18 09:00 11/15/18 17:59 10/20/18 08:50 Vancomycin HCl (Vanco rx to dose) 1 ea DAILY PRN MISC Per rx protocol 10/19/18 11:15 11/18/18 11:14 Vancomycin HCl 1 gm/Dextrose 275 ml @ 183.708 mls/hr Q12HR@0100,1300 IVPB 10/20/18 01:00 10/25/18 00:59 10/20/18 12:16 Lucas Bravo MD Oct 20, 2018 13:25
--- NOTE | 2018-10-20 14:24 | Nephrology Progress Note ---
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 Plan Plan: K and Phos IV as needed IV Pepcid continue the rest DNAR / DNI Comfort care Poor prognosis Subjective ROS Limited/Unobtainable: No Constitutional: Reports: malaise Objective Objective Last 24 Hour Vital Signs Date Time Temp Pulse Resp B/P (MAP) Pulse Ox O2 Delivery O2 Flow Rate FiO2 10/20/18 13:39 T-piece 8.0 30 10/20/18 13:38 95 T-piece 8.0 30 10/20/18 13:34 102 16 95 T-piece 8.0 30 10/20/18 13:21 99.5 10/20/18 12:00 8.0 30 10/20/18 12:00 100.0 96 20 91/51 (64) 95 10/20/18 12:00 97 10/20/18 09:00 89 80/56 10/20/18 09:00 Trach Collar 8.0 Trach Collar 8.0 10/20/18 08:00 8.0 30 10/20/18 08:00 97.1 89 18 80/56 (64) 97 10/20/18 08:00 93 10/20/18 07:34 87 20 99 T-piece 8.0 30 10/20/18 07:21 T-piece 8.0 30 10/20/18 07:20 99 T-piece 8.0 30 10/20/18 07:19 85 16 99 T-piece 8.0 30 10/20/18 04:00 96 10/20/18 04:00 8.0 30 10/20/18 04:00 98.7 91 18 100/66 (77) 100 10/20/18 01:21 T-piece 8.0 30 10/20/18 01:21 T-piece 8.0 30 10/20/18 01:19 T-piece 8.0 30 10/20/18 01:19 98 T-piece 8.0 30 10/20/18 00:00 111 10/20/18 00:00 102.2 110 18 102/67 (79) 98 10/19/18 21:00 110 107/67 10/19/18 21:00 Trach Collar 8.0 Trach Collar 8.0 10/19/18 20:00 8.0 30 10/19/18 20:00 101 10/19/18 20:00 99.0 110 18 107/77 (87) 100 10/19/18 19:47 100 20 100 T-piece 8.0 30 10/19/18 19:39 100 T-piece 8.0 30 10/19/18 19:39 103 16 99 T-piece 8.0 30 10/19/18 19:39 T-piece 8.0 30 10/19/18 16:00 98.2 86 20 85/60 (68) 99 10/19/18 16:00 8.0 30 10/19/18 15:17 89 Intake and Output 10/19/18 10/20/18 19:00 07:00 Intake Total 830.0 ml Output Total 1000 ml 1300 ml Balance -170.0 ml -1300 ml Intake Free Water 250 ml IV Total 330.0 ml Tube Feeding 250 ml Output Urine Total 1000 ml 1100 ml Stool Total 200 ml Laboratory Tests 10/20/18 12:13: White Blood Count 18.8H, Red Blood Count 2.94L, Hemoglobin 9.4L, Hematocrit 27.5L, Mean Corpuscular Volume 94, Mean Corpuscular Hemoglobin 32.1H, Mean Corpuscular Hemoglobin Concent 34.3, Red Cell Distribution Width 15.5H, Platelet Count 114L, Mean Platelet Volume 8.7, Neutrophils (%) (Auto) , Lymphocytes (%) (Auto) , Monocytes (%) (Auto) , Eosinophils (%) (Auto) , Basophils (%) (Auto) , Differential Total Cells Counted 100, Neutrophils % ( Manual) 88H, Lymphocytes % (Manual) 9L, Monocytes % (Manual) 3, Eosinophils % ( Manual) 0, Basophils % (Manual) 0, Band Neutrophils 0, Platelet Estimate DecreasedL, Platelet Morphology Normal, Hypochromasia 1+, Anisocytosis 1+, Sodium Level 137, Potassium Level 3.7, Chloride Level 101, Carbon Dioxide Level 30, Anion Gap 6, Blood Urea Nitrogen 16, Creatinine 0.8, Estimat Glomerular Filtration Rate > 60, Glucose Level 211H, Uric Acid 2.0L, Calcium Level 8.3L, Phosphorus Level 2.5, Magnesium Level 2.0, Total Bilirubin 0.6, Gamma Glutamyl Transpeptidase 52, Aspartate Amino Transf (AST/SGOT) 15, Alanine Aminotransferase (ALT/SGPT) 21, Alkaline Phosphatase 81, C-Reactive Protein, Quantitative 3.7H, Pro-B-Type Natriuretic Peptide 1847H, Total Protein 6.6, Albumin 2.2L, Globulin 4.4, Albumin/Globulin Ratio 0.5L Height (Feet): 5 Height (Inches): 7.00 Weight (Pounds): 148 General Appearance: no apparent distress Objective no change Clint Piper MD Oct 20, 2018 14:24
[2018-10-20 16:00] VITALS: BP 92/58
--- NOTE | 2018-10-20 19:17 | Cardiology Progress Note ---
Assessment/Plan Assessment/Plan 1. Septic shock,resolved, due to B/L pneumonia. 2. Dyspnea due to B/L pneumonia, 2D echo revealing + wall motion abnormalities in the septal wall, ? ischemic CM, LVEF ~45%. 3. CVA with severe debilitation, consider ASA and statins. 4. Dysphagia, s/p PEG placement. 5. VDRF, s/p tracheostomy placement. 6. Sinus tachycardia, resolved, continue metoprolol. Subjective Subjective Sinus rhythm at rate of 75. On T-piece, FiO2 30%. Objective Last 24 Hour Vital Signs Date Time Temp Pulse Resp B/P (MAP) Pulse Ox O2 Delivery O2 Flow Rate FiO2 10/20/18 16:00 8.0 30 10/20/18 16:00 75 10/20/18 16:00 98.9 81 18 92/58 (69) 100 10/20/18 13:44 88 20 99 T-piece 8.0 30 10/20/18 13:39 T-piece 8.0 30 10/20/18 13:38 95 T-piece 8.0 30 10/20/18 13:34 102 16 95 T-piece 8.0 30 10/20/18 13:21 99.5 10/20/18 12:00 8.0 30 10/20/18 12:00 100.0 96 20 91/51 (64) 95 10/20/18 12:00 97 10/20/18 09:00 89 80/56 10/20/18 09:00 Trach Collar 8.0 Trach Collar 8.0 10/20/18 08:00 8.0 30 10/20/18 08:00 97.1 89 18 80/56 (64) 97 10/20/18 08:00 93 10/20/18 07:34 87 20 99 T-piece 8.0 30 10/20/18 07:21 T-piece 8.0 30 10/20/18 07:20 99 T-piece 8.0 30 10/20/18 07:19 85 16 99 T-piece 8.0 30 10/20/18 04:00 96 10/20/18 04:00 8.0 30 10/20/18 04:00 98.7 91 18 100/66 (77) 100 10/20/18 01:21 T-piece 8.0 30 10/20/18 01:21 T-piece 8.0 30 10/20/18 01:19 T-piece 8.0 30 10/20/18 01:19 98 T-piece 8.0 30 10/20/18 00:00 111 10/20/18 00:00 102.2 110 18 102/67 (79) 98 10/19/18 21:00 110 107/67 10/19/18 21:00 Trach Collar 8.0 Trach Collar 8.0 10/19/18 20:00 8.0 30 10/19/18 20:00 101 10/19/18 20:00 99.0 110 18 107/77 (87) 100 10/19/18 19:47 100 20 100 T-piece 8.0 30 10/19/18 19:39 100 T-piece 8.0 30 10/19/18 19:39 103 16 99 T-piece 8.0 30 10/19/18 19:39 T-piece 8.0 30 Intake and Output 10/19/18 10/20/18 19:00 07:00 Intake Total 830.0 ml Output Total 1000 ml 1300 ml Balance -170.0 ml -1300 ml Intake Free Water 250 ml IV Total 330.0 ml Tube Feeding 250 ml Output Urine Total 1000 ml 1100 ml Stool Total 200 ml 2D Echo: LVEF 45%, Septal wall hypokinesia, Grade I LVDD Laboratory Tests Test 10/20/18 12:13 White Blood Count 18.8 K/UL (4.8-10.8) H Red Blood Count 2.94 M/UL (4.70-6.10) L Hemoglobin 9.4 G/DL (14.2-18.0) L Hematocrit 27.5 % (42.0-52.0) L Mean Corpuscular Volume 94 FL (80-99) Mean Corpuscular Hemoglobin 32.1 PG (27.0-31.0) H Mean Corpuscular Hemoglobin Concent 34.3 G/DL (32.0-36.0) Red Cell Distribution Width 15.5 % (11.6-14.8) H Platelet Count 114 K/UL (150-450) L Mean Platelet Volume 8.7 FL (6.5-10.1) Neutrophils (%) (Auto) % (45.0-75.0) Lymphocytes (%) (Auto) % (20.0-45.0) Monocytes (%) (Auto) % (1.0-10.0) Eosinophils (%) (Auto) % (0.0-3.0) Basophils (%) (Auto) % (0.0-2.0) Differential Total Cells Counted 100 Neutrophils % (Manual) 88 % (45-75) H Lymphocytes % (Manual) 9 % (20-45) L Monocytes % (Manual) 3 % (1-10) Eosinophils % (Manual) 0 % (0-3) Basophils % (Manual) 0 % (0-2) Band Neutrophils 0 % (0-8) Platelet Estimate Decreased L Platelet Morphology Normal Hypochromasia 1+ Anisocytosis 1+ Sodium Level 137 MMOL/L (136-145) Potassium Level 3.7 MMOL/L (3.5-5.1) Chloride Level 101 MMOL/L (98-107) Carbon Dioxide Level 30 MMOL/L (21-32) Anion Gap 6 mmol/L (5-15) Blood Urea Nitrogen 16 mg/dL (7-18) Creatinine 0.8 MG/DL (0.55-1.30) Estimat Glomerular Filtration Rate > 60 mL/min (>60) Glucose Level 211 MG/DL (74-106) H Uric Acid 2.0 MG/DL (2.6-7.2) L Calcium Level 8.3 MG/DL (8.5-10.1) L Phosphorus Level 2.5 MG/DL (2.5-4.9) Magnesium Level 2.0 MG/DL (1.8-2.4) Total Bilirubin 0.6 MG/DL (0.2-1.0) Gamma Glutamyl Transpeptidase 52 U/L (5-85) Aspartate Amino Transf (AST/SGOT) 15 U/L (15-37) Alanine Aminotransferase (ALT/SGPT) 21 U/L (12-78) Alkaline Phosphatase 81 U/L (46-116) C-Reactive Protein, Quantitative 3.7 mg/dL (0.00-0.90) H Pro-B-Type Natriuretic Peptide 1847 pg/mL (0-125) H Total Protein 6.6 G/DL (6.4-8.2) Albumin 2.2 G/DL (3.4-5.0) L Globulin 4.4 g/dL Albumin/Globulin Ratio 0.5 (1.0-2.7) L Microbiology Date/Time Source Procedure Growth Status 10/17/18 20:50 Blood Blood Culture - Preliminary Staphylococcus Sp Coag Neg Resulted 10/19/18 03:30 Urine,Ureter/Kidney Urine Culture - Preliminary Gram Negative Bacillus 1 Resulted Objective HEENT: Atraumatic, bitemporal wasting, dry mucosal membranes, PERRLA NECK: cannot assess JVP, tracheostomy tube in place. HEART: Regular rate and rhythm. No murmurs, gallops or rubs. Lungs: Bibasilar crackles. ABDOMEN: Soft, NT/ND, + BS. G-tube in place. EXTREMITIES: No edema, clubbing or cyanosis. NEUROLOGIC: Nonresponsive, vegetative state. Davy Estrada MD Oct 20, 2018 19:17
--- NOTE | 2018-10-20 19:43 | NUR ---
HAND-OFF: Report given to KOLE Segura. Patient is in stable condition. Endorsed plan of care.
--- NOTE | 2018-10-20 19:44 | NUR ---
NURSE NOTES: Received report from KOLE Jefferson. Patient in bed asleep showing no signs of acute distress. Vitals table. IV line patent and intact. GT patent and intact. Castrejon patent intact and draining. Rectal tube patent and intact. Respiration even and non labored on 8L via trach. Bed in lowest position possible. Will continue plan of care.
[2018-10-20 20:00] VITALS: BP 116/70
--- NOTE | 2018-10-20 22:12 | Pulmonology Progress Note ---
Assessment/Plan Problems: (1) Cerebral infarction (2) Encephalopathy (3) Severe sepsis (4) Lactic acid acidosis (5) Tracheostomy care (6) Feeding by G-tube (7) DNAR (do not attempt resuscitation) Assessment/Plan -ABX per ID -Monitor fever curve -Optimize pulmonary hygiene/mobilize as tolerated -Continue TC -Titrate O2 -HHN's and NAC -TF's as tolerated -Continue HC 25 TID and taper -Monitor volumes and renal function -DNAR -Dispo planning Subjective Allergies: Coded Allergies: No Known Allergies (Unverified , 10/11/18) Subjective Tm 104.5 CoNS in blood, GNB in urine WCt better BP better No cough no SOB Objective Last 24 Hour Vital Signs Date Time Temp Pulse Resp B/P (MAP) Pulse Ox O2 Delivery O2 Flow Rate FiO2 10/20/18 20:17 98 18 98 T-piece 8.0 30 10/20/18 20:04 80 18 T-piece 8.0 30 10/20/18 20:02 80 18 96 T-piece 8.0 30 10/20/18 20:02 96 T-piece 8.0 30 10/20/18 20:02 T-piece 8.0 30 10/20/18 16:00 8.0 30 10/20/18 16:00 75 10/20/18 16:00 98.9 81 18 92/58 (69) 100 10/20/18 13:44 88 20 99 T-piece 8.0 30 10/20/18 13:39 T-piece 8.0 30 10/20/18 13:38 95 T-piece 8.0 30 10/20/18 13:34 102 16 95 T-piece 8.0 30 10/20/18 13:21 99.5 10/20/18 12:00 8.0 30 10/20/18 12:00 100.0 96 20 91/51 (64) 95 10/20/18 12:00 97 10/20/18 09:00 89 80/56 10/20/18 09:00 Trach Collar 8.0 Trach Collar 8.0 10/20/18 08:00 8.0 30 10/20/18 08:00 97.1 89 18 80/56 (64) 97 10/20/18 08:00 93 10/20/18 07:34 87 20 99 T-piece 8.0 30 10/20/18 07:21 T-piece 8.0 30 10/20/18 07:20 99 T-piece 8.0 30 10/20/18 07:19 85 16 99 T-piece 8.0 30 10/20/18 04:00 96 10/20/18 04:00 8.0 30 10/20/18 04:00 98.7 91 18 100/66 (77) 100 10/20/18 01:21 T-piece 8.0 30 10/20/18 01:21 T-piece 8.0 30 10/20/18 01:19 T-piece 8.0 30 10/20/18 01:19 98 T-piece 8.0 30 10/20/18 00:00 111 10/20/18 00:00 102.2 110 18 102/67 (79) 98 Intake and Output 10/19/18 10/20/18 19:00 07:00 Intake Total 830.0 ml Output Total 1000 ml 1300 ml Balance -170.0 ml -1300 ml Intake Free Water 250 ml IV Total 330.0 ml Tube Feeding 250 ml Output Urine Total 1000 ml 1100 ml Stool Total 200 ml General Appearance: no acute distress, cachetic HEENT: normocephalic, atraumatic, anicteric, status post trach Respiratory/Chest: rhonchi Cardiovascular: normal peripheral pulses, normal rate, regular rhythm Abdomen: normal bowel sounds, soft, non tender, no organomegaly, non distended , no mass, other - GT Extremities: no cyanosis, no clubbing, no edema Microbiology Date/Time Source Procedure Growth Status 10/19/18 03:30 Urine,Ureter/Kidney Urine Culture - Preliminary Gram Negative Bacillus 1 Resulted Laboratory Tests 10/20/18 12:13: White Blood Count 18.8H, Red Blood Count 2.94L, Hemoglobin 9.4L, Hematocrit 27.5L, Mean Corpuscular Volume 94, Mean Corpuscular Hemoglobin 32.1H, Mean Corpuscular Hemoglobin Concent 34.3, Red Cell Distribution Width 15.5H, Platelet Count 114L, Mean Platelet Volume 8.7, Neutrophils (%) (Auto) , Lymphocytes (%) (Auto) , Monocytes (%) (Auto) , Eosinophils (%) (Auto) , Basophils (%) (Auto) , Differential Total Cells Counted 100, Neutrophils % ( Manual) 88H, Lymphocytes % (Manual) 9L, Monocytes % (Manual) 3, Eosinophils % ( Manual) 0, Basophils % (Manual) 0, Band Neutrophils 0, Platelet Estimate DecreasedL, Platelet Morphology Normal, Hypochromasia 1+, Anisocytosis 1+, Sodium Level 137, Potassium Level 3.7, Chloride Level 101, Carbon Dioxide Level 30, Anion Gap 6, Blood Urea Nitrogen 16, Creatinine 0.8, Estimat Glomerular Filtration Rate > 60, Glucose Level 211H, Uric Acid 2.0L, Calcium Level 8.3L, Phosphorus Level 2.5, Magnesium Level 2.0, Total Bilirubin 0.6, Gamma Glutamyl Transpeptidase 52, Aspartate Amino Transf (AST/SGOT) 15, Alanine Aminotransferase (ALT/SGPT) 21, Alkaline Phosphatase 81, C-Reactive Protein, Quantitative 3.7H, Pro-B-Type Natriuretic Peptide 1847H, Total Protein 6.6, Albumin 2.2L, Globulin 4.4, Albumin/Globulin Ratio 0.5L Current Medications Medications (Trade) Dose Ordered Sig/Last Route PRN Reason Start Time Stop Time Status Last Admin Dose Admin Acetaminophen (Tylenol) 650 mg Q4H PRN NG for fever >100.3 10/18/18 01:30 11/17/18 01:29 10/20/18 12:51 Acetaminophen (Tylenol) 650 mg Q4H PRN RECTAL Prn Headache/Temp > 101 10/17/18 07:30 11/16/18 07:29 Acetylcysteine (Mucomyst) 100 mg TIDRT N 10/19/18 13:00 11/15/18 12:59 10/20/18 20:02 Albuterol/ Ipratropium (Albuterol/ Ipratropium) 3 ml Q6HRT N 10/19/18 13:00 10/26/18 12:59 10/20/18 20:02 Cefepime HCl 1 gm/ Dextrose 55 ml @ 110 mls/hr EVERY 12 HOURS IVPB 10/19/18 12:00 10/26/18 11:59 10/20/18 08:50 Dextrose (Dextrose 50%) 25 ml Q30M PRN IV Hypoglycemia 10/19/18 10:45 11/18/18 10:44 Dextrose (Dextrose 50%) 50 ml Q30M PRN IV Hypoglycemia 10/19/18 10:45 11/18/18 10:44 Famotidine (Pepcid) 20 mg BID GT 10/19/18 09:00 11/18/18 08:59 10/20/18 18:33 Heparin Sodium (Porcine) (Heparin 5000 units/ml) 5,000 units EVERY 12 HOURS SUBQ 10/17/18 09:00 11/10/18 20:59 10/19/18 21:43 Hydrocortisone (Solu-CORTEF) 25 mg BID IV 10/19/18 09:00 11/10/18 21:59 10/20/18 18:33 Insulin Aspart (NovoLOG) EVERY 6 HOURS SUBQ 10/19/18 12:00 11/18/18 11:59 10/20/18 18:36 Metoclopramide HCl (Reglan) 10 mg Q8H PRN IVP Nausea & Vomiting 10/19/18 09:45 11/18/18 09:44 10/19/18 09:58 Metoprolol Tartrate (Lopressor) 25 mg Q12HR ORAL 10/18/18 09:00 11/17/18 08:59 10/19/18 08:34 Potassium Chloride (K-Dur) 40 meq TWICE A DAY GT 10/17/18 09:00 11/15/18 17:59 10/20/18 18:34 Vancomycin HCl (Vanco rx to dose) 1 ea DAILY PRN MISC Per rx protocol 10/19/18 11:15 11/18/18 11:14 Vancomycin HCl 1 gm/Dextrose 275 ml @ 183.708 mls/hr Q12HR@0100,1300 IVPB 10/20/18 01:00 10/25/18 00:59 10/20/18 12:16 Jordy Lou MD Oct 20, 2018 22:12
[2018-10-21] VITALS (8 sets, daily range): BP systolic 77–155; BP diastolic 48–91
[2018-10-21] MEDS: NovoLOG Insulin Flexpen SUBQ SCH ×5 (00:20→23:59)
[2018-10-21] MEDS: Vancomycin 1gm/D5W 275ml IVPB SCH ×4 (00:20→12:19)
[2018-10-21] MEDS: Albuterol/Ipratropium 3ml neb HHN SCH ×4 (01:35→19:04)
[2018-10-21 06:19] LABS: HEMOGLOBIN 9.5 G/DL (14.2-18.0); MEAN CORPUSCULAR VOLUME 94 FL (80-99); PLATELET COUNT 128 K/UL (150-450); RED BLOOD COUNT 2.98 M/UL (4.70-6.10); RED CELL DISTRIBUTION WIDTH 16.1 % (11.6-14.8); WHITE BLOOD COUNT 14.1 K/UL (4.8-10.8)
[2018-10-21 07:11] LABS: ANION GAP 7 mmol/L (5-15); BLOOD UREA NITROGEN 20 mg/dL (7-18); CALCIUM 8.6 MG/DL (8.5-10.1); CARBON DIOXIDE 27 MMOL/L (21-32); CHLORIDE 101 MMOL/L (98-107); CREATININE 0.7 MG/DL (0.55-1.30); POTASSIUM 4.2 MMOL/L (3.5-5.1); SODIUM 135 MMOL/L (136-145)
--- NOTE | 2018-10-21 07:25 | NUR ---
HAND-OFF: Report given to KOLE Jefferson.
--- NOTE | 2018-10-21 07:26 | NUR ---
NURSE NOTES: Received report from KOLE Segura. Patient is in stable condition. No acute distress/SOB noted. Castrejon intact and draining. Afebrile. Will continue plan of care.
[2018-10-21] MEDS: Hydrocortisone 100mg Inj IV SCH ×2 (08:47→18:00)
[2018-10-21] MEDS: Cefepime HCl 1 GM in D5W 55 ML IVPB SCH (08:48)
[2018-10-21] MEDS: Heparin 5000 units/ml inj SUBQ SCH ×2 (09:00→20:19)
[2018-10-21] MEDS: Metoprolol 25mg tab ORAL SCH ×2 (09:00→20:18)
--- NOTE | 2018-10-21 09:08 | Pulmonology Progress Note ---
Assessment/Plan Problems: (1) Cerebral infarction (2) Encephalopathy (3) Severe sepsis (4) Lactic acid acidosis (5) Tracheostomy care (6) Feeding by G-tube (7) DNAR (do not attempt resuscitation) Assessment/Plan -ABX per ID -Monitor fever curve -Optimize pulmonary hygiene/mobilize as tolerated -Continue TC -Titrate O2 -HHN's and NAC -TF's as tolerated -Continue HC 25 TID and taper -Monitor volumes and renal function - WILL GIVE AN NS 500 cc BOLUS -DNAR -Dispo planning once acute issues resolve Subjective Allergies: Coded Allergies: No Known Allergies (Unverified , 10/11/18) Subjective Tm 102 repeat BCx NG WCt better BP better No cough but thick secretions being suctioned no SOB BP was stable ON 90s this am Objective Last 24 Hour Vital Signs Date Time Temp Pulse Resp B/P (MAP) Pulse Ox O2 Delivery O2 Flow Rate FiO2 10/21/18 07:56 99 15 99 T-piece 8.0 30 10/21/18 07:56 99 T-piece 8.0 30 10/21/18 07:56 T-piece 8.0 30 10/21/18 04:00 99.2 124 18 147/89 (108) 97 10/21/18 04:00 112 10/21/18 04:00 8.0 30 10/21/18 01:36 98 T-piece 8.0 30 10/21/18 01:36 T-piece 8.0 30 10/21/18 01:35 T-piece 8.0 30 10/21/18 01:35 T-piece 8.0 30 10/21/18 00:00 97.2 124 19 155/91 (112) 98 10/21/18 00:00 85 10/20/18 21:00 92 116/70 10/20/18 21:00 Trach Collar 8.0 Trach Collar 8.0 10/20/18 20:17 98 18 98 T-piece 8.0 30 10/20/18 20:04 80 18 T-piece 8.0 30 10/20/18 20:02 80 18 96 T-piece 8.0 30 10/20/18 20:02 96 T-piece 8.0 30 10/20/18 20:02 T-piece 8.0 30 10/20/18 20:00 98.0 92 18 116/70 (85) 100 10/20/18 20:00 8.0 30 10/20/18 20:00 83 10/20/18 16:00 8.0 30 10/20/18 16:00 75 10/20/18 16:00 98.9 81 18 92/58 (69) 100 10/20/18 13:44 88 20 99 T-piece 8.0 30 10/20/18 13:39 T-piece 8.0 30 10/20/18 13:38 95 T-piece 8.0 30 10/20/18 13:34 102 16 95 T-piece 8.0 30 10/20/18 13:21 99.5 10/20/18 12:00 8.0 30 10/20/18 12:00 100.0 96 20 91/51 (64) 95 10/20/18 12:00 97 Intake and Output 10/20/18 10/21/18 18:59 06:59 Intake Total 330.000 ml Output Total 550 ml 850 ml Balance -220.000 ml -850 ml IV Total 330.000 ml Output Urine Total 250 ml 850 ml Stool Total 300 ml General Appearance: cachetic, other - non-verbal HEENT: normocephalic, atraumatic, anicteric, status post trach Respiratory/Chest: rhonchi Cardiovascular: normal peripheral pulses, normal rate, regular rhythm Abdomen: normal bowel sounds, soft, non tender, no organomegaly, non distended , other - GT Extremities: no cyanosis, no clubbing, no edema Microbiology Date/Time Source Procedure Growth Status 10/19/18 03:30 Urine,Ureter/Kidney Urine Culture - Final Escherichia Coli - Esbl Complete Laboratory Tests 10/20/18 12:13: White Blood Count 18.8H, Red Blood Count 2.94L, Hemoglobin 9.4L, Hematocrit 27.5L, Mean Corpuscular Volume 94, Mean Corpuscular Hemoglobin 32.1H, Mean Corpuscular Hemoglobin Concent 34.3, Red Cell Distribution Width 15.5H, Platelet Count 114L, Mean Platelet Volume 8.7, Neutrophils (%) (Auto) , Lymphocytes (%) (Auto) , Monocytes (%) (Auto) , Eosinophils (%) (Auto) , Basophils (%) (Auto) , Differential Total Cells Counted 100, Neutrophils % ( Manual) 88H, Lymphocytes % (Manual) 9L, Monocytes % (Manual) 3, Eosinophils % ( Manual) 0, Basophils % (Manual) 0, Band Neutrophils 0, Platelet Estimate DecreasedL, Platelet Morphology Normal, Hypochromasia 1+, Anisocytosis 1+, Sodium Level 137, Potassium Level 3.7, Chloride Level 101, Carbon Dioxide Level 30, Anion Gap 6, Blood Urea Nitrogen 16, Creatinine 0.8, Estimat Glomerular Filtration Rate > 60, Glucose Level 211H, Uric Acid 2.0L, Calcium Level 8.3L, Phosphorus Level 2.5, Magnesium Level 2.0, Total Bilirubin 0.6, Gamma Glutamyl Transpeptidase 52, Aspartate Amino Transf (AST/SGOT) 15, Alanine Aminotransferase (ALT/SGPT) 21, Alkaline Phosphatase 81, C-Reactive Protein, Quantitative 3.7H, Pro-B-Type Natriuretic Peptide 1847H, Total Protein 6.6, Albumin 2.2L, Globulin 4.4, Albumin/Globulin Ratio 0.5L 10/21/18 00:30: Vancomycin Level Trough 17.6H 10/21/18 05:15: White Blood Count 14.1H, Red Blood Count 2.98L, Hemoglobin 9.5L, Hematocrit 28.0L, Mean Corpuscular Volume 94, Mean Corpuscular Hemoglobin 31.8H, Mean Corpuscular Hemoglobin Concent 33.8, Red Cell Distribution Width 16.1H, Platelet Count 128L, Mean Platelet Volume 8.3, Neutrophils (%) (Auto) , Lymphocytes (%) (Auto) , Monocytes (%) (Auto) , Eosinophils (%) (Auto) , Basophils (%) (Auto) , Neutrophils % (Manual) [Pending], Lymphocytes % (Manual) [Pending], Platelet Estimate [Pending], Platelet Morphology [Pending], Sodium Level 135L, Potassium Level 4.2, Chloride Level 101, Carbon Dioxide Level 27, Anion Gap 7, Blood Urea Nitrogen 20H, Creatinine 0.7, Estimat Glomerular Filtration Rate > 60, Glucose Level 318#H, Calcium Level 8.6 Current Medications Medications (Trade) Dose Ordered Sig/Last Route PRN Reason Start Time Stop Time Status Last Admin Dose Admin Acetaminophen (Tylenol) 650 mg Q4H PRN NG for fever >100.3 10/18/18 01:30 11/17/18 01:29 10/20/18 12:51 Acetaminophen (Tylenol) 650 mg Q4H PRN RECTAL Prn Headache/Temp > 101 10/17/18 07:30 11/16/18 07:29 Acetylcysteine (Mucomyst) 100 mg TIDRT N 10/19/18 13:00 11/15/18 12:59 10/21/18 07:55 Albuterol/ Ipratropium (Albuterol/ Ipratropium) 3 ml Q6HRT N 10/19/18 13:00 10/26/18 12:59 10/21/18 07:55 Cefepime HCl 1 gm/ Dextrose 55 ml @ 110 mls/hr EVERY 12 HOURS IVPB 10/19/18 12:00 10/26/18 11:59 10/21/18 08:48 Dextrose (Dextrose 50%) 25 ml Q30M PRN IV Hypoglycemia 10/19/18 10:45 11/18/18 10:44 Dextrose (Dextrose 50%) 50 ml Q30M PRN IV Hypoglycemia 10/19/18 10:45 11/18/18 10:44 Famotidine (Pepcid) 20 mg BID GT 10/19/18 09:00 11/18/18 08:59 10/21/18 08:47 Heparin Sodium (Porcine) (Heparin 5000 units/ml) 5,000 units EVERY 12 HOURS SUBQ 10/17/18 09:00 11/10/18 20:59 10/20/18 22:25 Hydrocortisone (Solu-CORTEF) 25 mg BID IV 10/19/18 09:00 11/10/18 21:59 10/21/18 08:47 Insulin Aspart (NovoLOG) EVERY 6 HOURS SUBQ 10/19/18 12:00 11/18/18 11:59 10/21/18 06:15 Metoclopramide HCl (Reglan) 10 mg Q8H PRN IVP Nausea & Vomiting 10/19/18 09:45 11/18/18 09:44 10/19/18 09:58 Metoprolol Tartrate (Lopressor) 25 mg Q12HR ORAL 10/18/18 09:00 11/17/18 08:59 10/19/18 08:34 Potassium Chloride (K-Dur) 40 meq TWICE A DAY GT 10/17/18 09:00 11/15/18 17:59 10/21/18 08:47 Vancomycin HCl (Vanco rx to dose) 1 ea DAILY PRN MISC Per rx protocol 10/19/18 11:15 11/18/18 11:14 Vancomycin HCl 1 gm/Dextrose 275 ml @ 183.708 mls/hr Q12HR@0100,1300 IVPB 10/20/18 01:00 10/25/18 00:59 10/21/18 00:20 Jordy Lou MD Oct 21, 2018 09:08
--- NOTE | 2018-10-21 09:43 | NUR ---
RADIOLOGY DEPT CHEST X-RAY DONE.-P.DYE
--- NOTE | 2018-10-21 09:57 | GI Progress Note ---
Assessment/Plan Problems: (1) Gastrostomy tube dependent ICD Codes: Z93.1 - Gastrostomy status SNOMED: 551713187, 739305357 (2) Anemia ICD Codes: D64.9 - Anemia, unspecified SNOMED: 544207111 (3) Iron deficiency ICD Codes: E61.1 - Iron deficiency SNOMED: 23220754 (4) Dehydration ICD Codes: E86.0 - Dehydration SNOMED: 70604909 (5) Feeding by G-tube ICD Codes: Z93.1 - Gastrostomy status SNOMED: 472823084, 942821590, 612321427 Status: stable Status Narrative Discussed with Dr. Dixon Assessment/Plan Anemia workup reviewed. Iron deficiency. OB stool negative. G-tube dependent Rectal tube present Cdiff negative G-tube feeding per RD to goal Reglan for GI motility if needed, reported high residuals monitor H&H, as needed transfusions Antibiotics venofer No plans for GI procedures unless urgent Follow labs The patient was seen and examined at bedside and all new and available data was reviewed in the patients chart. I agree with the above findings, impression and plan. (Patient seen earlier today. Signature stamp does not reflect patient encounter time.). - Gerson Dixon MD Subjective Subjective limited Objective Last 24 Hour Vital Signs Date Time Temp Pulse Resp B/P (MAP) Pulse Ox O2 Delivery O2 Flow Rate FiO2 10/21/18 09:00 86 84/53 10/21/18 08:07 100 17 99 T-piece 8.0 30 10/21/18 08:00 98.2 86 22 84/53 (63) 100 10/21/18 07:56 99 15 99 T-piece 8.0 30 10/21/18 07:56 99 T-piece 8.0 30 10/21/18 07:56 T-piece 8.0 30 10/21/18 04:00 99.2 124 18 147/89 (108) 97 10/21/18 04:00 112 10/21/18 04:00 8.0 30 10/21/18 01:36 98 T-piece 8.0 30 10/21/18 01:36 T-piece 8.0 30 10/21/18 01:35 T-piece 8.0 30 10/21/18 01:35 T-piece 8.0 30 10/21/18 00:00 97.2 124 19 155/91 (112) 98 10/21/18 00:00 85 10/20/18 21:00 92 116/70 10/20/18 21:00 Trach Collar 8.0 Trach Collar 8.0 10/20/18 20:17 98 18 98 T-piece 8.0 30 10/20/18 20:04 80 18 T-piece 8.0 30 10/20/18 20:02 80 18 96 T-piece 8.0 30 10/20/18 20:02 96 T-piece 8.0 30 10/20/18 20:02 T-piece 8.0 30 10/20/18 20:00 98.0 92 18 116/70 (85) 100 10/20/18 20:00 8.0 30 10/20/18 20:00 83 10/20/18 16:00 8.0 30 10/20/18 16:00 75 10/20/18 16:00 98.9 81 18 92/58 (69) 100 10/20/18 13:44 88 20 99 T-piece 8.0 30 10/20/18 13:39 T-piece 8.0 30 10/20/18 13:38 95 T-piece 8.0 30 10/20/18 13:34 102 16 95 T-piece 8.0 30 10/20/18 13:21 99.5 10/20/18 12:00 8.0 30 10/20/18 12:00 100.0 96 20 91/51 (64) 95 10/20/18 12:00 97 Intake and Output 10/20/18 10/21/18 19:00 07:00 Intake Total 330.000 ml Output Total 550 ml 850 ml Balance -220.000 ml -850 ml IV Total 330.000 ml Output Urine Total 250 ml 850 ml Stool Total 300 ml Laboratory Tests Test 10/20/18 12:13 10/21/18 00:30 10/21/18 05:15 White Blood Count 18.8 K/UL (4.8-10.8) H 14.1 K/UL (4.8-10.8) H Red Blood Count 2.94 M/UL (4.70-6.10) L 2.98 M/UL (4.70-6.10) L Hemoglobin 9.4 G/DL (14.2-18.0) L 9.5 G/DL (14.2-18.0) L Hematocrit 27.5 % (42.0-52.0) L 28.0 % (42.0-52.0) L Mean Corpuscular Volume 94 FL (80-99) 94 FL (80-99) Mean Corpuscular Hemoglobin 32.1 PG (27.0-31.0) H 31.8 PG (27.0-31.0) H Mean Corpuscular Hemoglobin Concent 34.3 G/DL (32.0-36.0) 33.8 G/DL (32.0-36.0) Red Cell Distribution Width 15.5 % (11.6-14.8) H 16.1 % (11.6-14.8) H Platelet Count 114 K/UL (150-450) L 128 K/UL (150-450) L Mean Platelet Volume 8.7 FL (6.5-10.1) 8.3 FL (6.5-10.1) Neutrophils (%) (Auto) % (45.0-75.0) % (45.0-75.0) Lymphocytes (%) (Auto) % (20.0-45.0) % (20.0-45.0) Monocytes (%) (Auto) % (1.0-10.0) % (1.0-10.0) Eosinophils (%) (Auto) % (0.0-3.0) % (0.0-3.0) Basophils (%) (Auto) % (0.0-2.0) % (0.0-2.0) Differential Total Cells Counted 100 100 Neutrophils % (Manual) 88 % (45-75) H 88 % (45-75) H Lymphocytes % (Manual) 9 % (20-45) L 11 % (20-45) L Monocytes % (Manual) 3 % (1-10) 1 % (1-10) Eosinophils % (Manual) 0 % (0-3) 0 % (0-3) Basophils % (Manual) 0 % (0-2) 0 % (0-2) Band Neutrophils 0 % (0-8) 0 % (0-8) Platelet Estimate Decreased L Decreased L Platelet Morphology Normal Normal Hypochromasia 1+ Anisocytosis 1+ 1+ Sodium Level 137 MMOL/L (136-145) 135 MMOL/L (136-145) L Potassium Level 3.7 MMOL/L (3.5-5.1) 4.2 MMOL/L (3.5-5.1) Chloride Level 101 MMOL/L (98-107) 101 MMOL/L (98-107) Carbon Dioxide Level 30 MMOL/L (21-32) 27 MMOL/L (21-32) Anion Gap 6 mmol/L (5-15) 7 mmol/L (5-15) Blood Urea Nitrogen 16 mg/dL (7-18) 20 mg/dL (7-18) H Creatinine 0.8 MG/DL (0.55-1.30) 0.7 MG/DL (0.55-1.30) Estimat Glomerular Filtration Rate > 60 mL/min (>60) > 60 mL/min (>60) Glucose Level 211 MG/DL (74-106) H 318 MG/DL (74-106) #H Uric Acid 2.0 MG/DL (2.6-7.2) L Calcium Level 8.3 MG/DL (8.5-10.1) L 8.6 MG/DL (8.5-10.1) Phosphorus Level 2.5 MG/DL (2.5-4.9) Magnesium Level 2.0 MG/DL (1.8-2.4) Total Bilirubin 0.6 MG/DL (0.2-1.0) Gamma Glutamyl Transpeptidase 52 U/L (5-85) Aspartate Amino Transf (AST/SGOT) 15 U/L (15-37) Alanine Aminotransferase (ALT/SGPT) 21 U/L (12-78) Alkaline Phosphatase 81 U/L (46-116) C-Reactive Protein, Quantitative 3.7 mg/dL (0.00-0.90) H Pro-B-Type Natriuretic Peptide 1847 pg/mL (0-125) H Total Protein 6.6 G/DL (6.4-8.2) Albumin 2.2 G/DL (3.4-5.0) L Globulin 4.4 g/dL Albumin/Globulin Ratio 0.5 (1.0-2.7) L Vancomycin Level Trough 17.6 ug/mL (5.0-12.0) H Height (Feet): 5 Height (Inches): 7.00 Weight (Pounds): 148 General Appearance: WD/WN, no apparent distress, alert, thin Cardiovascular: normal rate Respiratory/Chest: normal breath sounds, no respiratory distress Abdominal Exam: normal bowel sounds, non tender, soft Extremities: non-tender Gayatri Sofia NP Oct 21, 2018 09:57
--- NOTE | 2018-10-21 11:54 | Diagnostic Imaging Report ---
Indication: Dyspnea Comparison: None A single view chest radiograph was obtained. Findings: Is an infiltrate in the right upper lobe. Findings suspicious for pneumonia. Tracheostomy noted. Heart size is normal. Perihilar densities are also present. Bilateral old clavicle fractures are noted. IMPRESSION: Pneumonia suspected in the right upper lobe.
--- NOTE | 2018-10-21 13:19 | NUR ---
*-* DISCHARGE PLANNED *-* PATIENT IS DISCAHRGED TO: [facility] ROOM# 18-C PRISON T: [phone] FOR NURSE TO NURSE REPORT *-* ONCE DOCTOR PUTS D/C ORDER IN SYSTEM CALL [id number] FOR TRANSPORTATION*-*
--- NOTE | 2018-10-21 13:32 | NUR ---
NURSE NOTES: Informed Dr. Kelvin Bravo that patient is positive for ESBL urine.
--- NOTE | 2018-10-21 13:36 | Infectious Diseases Prog Note ---
Assessment/Plan Assessment/Plan IMPRESSION: New sepsis with fever & Leukocytosis Bacteremia with CoANS Urinary tract infection with ESBL E. coli pneumonia, acute renal failure, resolving lactic acidosis, resolving acute on chronic respiratory failure with hypoxemia, anemia, diabetes mellitus. Anemia Diarrhea, C. 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 Hypokalemia P: Start on Vancomycin , change Cefepime to Levaquin will f/u cultures Subjective ROS Limited/Unobtainable: Yes Constitutional: Reports: no symptoms Allergies: Coded Allergies: No Known Allergies (Unverified , 10/11/18) Objective Vital Signs Last 24 Hour Vital Signs Date Time Temp Pulse Resp B/P (MAP) Pulse Ox O2 Delivery O2 Flow Rate FiO2 10/21/18 12:00 92 10/21/18 12:00 8.0 30 10/21/18 11:56 98.3 92 20 79/48 (58) 99 10/21/18 09:00 86 84/53 10/21/18 09:00 Trach Collar 8.0 Trach Collar 8.0 10/21/18 08:07 100 17 99 T-piece 8.0 30 10/21/18 08:00 8.0 30 10/21/18 08:00 99 10/21/18 08:00 98.2 86 22 84/53 (63) 100 10/21/18 07:56 99 15 99 T-piece 8.0 30 10/21/18 07:56 99 T-piece 8.0 30 10/21/18 07:56 T-piece 8.0 30 10/21/18 04:00 99.2 124 18 147/89 (108) 97 10/21/18 04:00 112 10/21/18 04:00 8.0 30 10/21/18 01:36 98 T-piece 8.0 30 10/21/18 01:36 T-piece 8.0 30 10/21/18 01:35 T-piece 8.0 30 10/21/18 01:35 T-piece 8.0 30 10/21/18 00:00 97.2 124 19 155/91 (112) 98 10/21/18 00:00 85 10/20/18 21:00 92 116/70 10/20/18 21:00 Trach Collar 8.0 Trach Collar 8.0 10/20/18 20:17 98 18 98 T-piece 8.0 30 10/20/18 20:04 80 18 T-piece 8.0 30 10/20/18 20:02 80 18 96 T-piece 8.0 30 10/20/18 20:02 96 T-piece 8.0 30 10/20/18 20:02 T-piece 8.0 30 10/20/18 20:00 98.0 92 18 116/70 (85) 100 10/20/18 20:00 8.0 30 10/20/18 20:00 83 10/20/18 16:00 8.0 30 10/20/18 16:00 75 10/20/18 16:00 98.9 81 18 92/58 (69) 100 10/20/18 13:44 88 20 99 T-piece 8.0 30 10/20/18 13:39 T-piece 8.0 30 10/20/18 13:38 95 T-piece 8.0 30 Height (Feet): 5 Height (Inches): 7.00 Weight (Pounds): 148 General Appearance: no acute distress HEENT: status post trach Respiratory/Chest: lungs clear, other - on Tbar Cardiovascular: normal rate Abdomen: soft, non tender, other - GT feeding Extremities: no edema Neurologic/Psychiatric: aphasia Microbiology Date/Time Source Procedure Growth Status 10/19/18 03:30 Urine,Ureter/Kidney Urine Culture - Final Escherichia Coli - Esbl Complete Laboratory Tests Test 10/21/18 00:30 10/21/18 05:15 Vancomycin Level Trough 17.6 ug/mL (5.0-12.0) H White Blood Count 14.1 K/UL (4.8-10.8) H Red Blood Count 2.98 M/UL (4.70-6.10) L Hemoglobin 9.5 G/DL (14.2-18.0) L Hematocrit 28.0 % (42.0-52.0) L Mean Corpuscular Volume 94 FL (80-99) Mean Corpuscular Hemoglobin 31.8 PG (27.0-31.0) H Mean Corpuscular Hemoglobin Concent 33.8 G/DL (32.0-36.0) Red Cell Distribution Width 16.1 % (11.6-14.8) H Platelet Count 128 K/UL (150-450) L Mean Platelet Volume 8.3 FL (6.5-10.1) Neutrophils (%) (Auto) % (45.0-75.0) Lymphocytes (%) (Auto) % (20.0-45.0) Monocytes (%) (Auto) % (1.0-10.0) Eosinophils (%) (Auto) % (0.0-3.0) Basophils (%) (Auto) % (0.0-2.0) Differential Total Cells Counted 100 Neutrophils % (Manual) 88 % (45-75) H Lymphocytes % (Manual) 11 % (20-45) L Monocytes % (Manual) 1 % (1-10) Eosinophils % (Manual) 0 % (0-3) Basophils % (Manual) 0 % (0-2) Band Neutrophils 0 % (0-8) Platelet Estimate Decreased L Platelet Morphology Normal Anisocytosis 1+ Sodium Level 135 MMOL/L (136-145) L Potassium Level 4.2 MMOL/L (3.5-5.1) Chloride Level 101 MMOL/L (98-107) Carbon Dioxide Level 27 MMOL/L (21-32) Anion Gap 7 mmol/L (5-15) Blood Urea Nitrogen 20 mg/dL (7-18) H Creatinine 0.7 MG/DL (0.55-1.30) Estimat Glomerular Filtration Rate > 60 mL/min (>60) Glucose Level 318 MG/DL (74-106) #H Calcium Level 8.6 MG/DL (8.5-10.1) Current Medications Medications (Trade) Dose Ordered Sig/Last Route PRN Reason Start Time Stop Time Status Last Admin Dose Admin Acetaminophen (Tylenol) 650 mg Q4H PRN NG for fever >100.3 10/18/18 01:30 11/17/18 01:29 10/20/18 12:51 Acetaminophen (Tylenol) 650 mg Q4H PRN RECTAL Prn Headache/Temp > 101 10/17/18 07:30 11/16/18 07:29 Acetylcysteine (Mucomyst) 100 mg TIDRT [facility] 10/19/18 13:00 11/15/18 12:59 10/21/18 07:55 Albuterol/ Ipratropium (Albuterol/ Ipratropium) 3 ml Q6HRT [facility] 10/19/18 13:00 10/26/18 12:59 10/21/18 07:55 Cefepime HCl 1 gm/ Dextrose 55 ml @ 110 mls/hr EVERY 12 HOURS IVPB 10/19/18 12:00 10/26/18 11:59 10/21/18 08:48 Dextrose (Dextrose 50%) 25 ml Q30M PRN IV Hypoglycemia 10/19/18 10:45 11/18/18 10:44 Dextrose (Dextrose 50%) 50 ml Q30M PRN IV Hypoglycemia 10/19/18 10:45 11/18/18 10:44 Famotidine (Pepcid) 20 mg BID GT 10/19/18 09:00 11/18/18 08:59 10/21/18 08:47 Heparin Sodium (Porcine) (Heparin 5000 units/ml) 5,000 units EVERY 12 HOURS SUBQ 10/17/18 09:00 11/10/18 20:59 10/20/18 22:25 Hydrocortisone (Solu-CORTEF) 25 mg BID IV 10/19/18 09:00 11/10/18 21:59 10/21/18 08:47 Insulin Aspart (NovoLOG) EVERY 6 HOURS SUBQ 10/19/18 12:00 11/18/18 11:59 10/21/18 12:19 Metoclopramide HCl (Reglan) 10 mg Q8H PRN IVP Nausea & Vomiting 10/19/18 09:45 11/18/18 09:44 10/19/18 09:58 Metoprolol Tartrate (Lopressor) 25 mg Q12HR ORAL 10/18/18 09:00 11/17/18 08:59 10/19/18 08:34 Potassium Chloride (K-Dur) 40 meq TWICE A DAY GT 10/17/18 09:00 11/15/18 17:59 10/21/18 08:47 Vancomycin HCl (Vanco rx to dose) 1 ea DAILY PRN MISC Per rx protocol 10/19/18 11:15 11/18/18 11:14 Vancomycin HCl 1 gm/Dextrose 275 ml @ 183.708 mls/hr Q12HR@0100,1300 IVPB 10/20/18 01:00 10/25/18 00:59 10/21/18 12:19 Lucas Bravo MD Oct 21, 2018 13:36
--- NOTE | 2018-10-21 14:16 | NUR ---
CASE MANAGEMENT:REVIEW 10/21/17 SI: SEVERE SEPSIS. PNA. UTI TRACH AND G-TUBE 98.3 92 20 79/48 99% ON 8L VIA TRACH COLLAR IS: 500CC NS BOLUS LEVAQUIN GT QD IV VANCOMYCIN Q12 IV SOLUCORTEF MUCOMYST HHN TID DUONEB HHN Q6HRS RTC : TELEMETRY STATUS DCP; FROM [facility]...SEE DC PLAN NOTE
--- NOTE | 2018-10-21 14:26 | NUR ---
NURSE NOTES: Informed Dr. Lou that pt's BP is still low and new order carried out. Verified order with pharmacist. Will continue plan of care.
[2018-10-21] MEDS ORDERED: Levofloxacin 750mg tab GT SCH (14:30)
--- NOTE | 2018-10-21 15:06 | NUR ---
RD ASSESSMENT & RECOMMENDATIONS SEE CARE ACTIVITY FOR COMPLETE ASSESSMENT DAILY ESTIMATED NEEDS: Needs based on Critical care, wound 57.7kg 22-30 kcals/kg 1606-1641 total kcals 1.25-2 g protein/kg 72-115 g total protein 25-30 mL/kg 4076-4614 total fluid mLs NUTRITION DIAGNOSIS: 1) Swallowing difficulty r/t respiratory status as evidenced by pt is vent dep via trach, PEG dep for all nutritional needs 2) Increased kcal and protein needs r/t wound healing and underweight status as evidenced by pt w/ stage 2 sacral wound, pt is 86% [place] Body Weight w/ generalized mild to moderate wasting. 3) Altered nutrition related lab values R/T diabetes, on steroidal med, clinical condition as evidenced by elev BGs (318 211) pt on solucortef, A1C of 9.1, low phos (2.0-> now wnl), tmax 100.0. CURRENT TF:Vital AF 1.2 @50ml/hr x24 hrs ENTERAL NUTRITION RECOMMENDATIONS: VITAL AF 1.2 @50ml/hr x24 hrs to provide 1200ml, 1440 kcal (25kcal/kg), 90g prot (1.55g/kg), 973ml free H2O - Maintain current TF as tolerated. - Flush per MD. HOB over 30 degrees ADDITIONAL RECOMMENDATIONS: 1) RE-calibrate bed scale w/ added P200 mattress + pump 2) Consider long acting insulin for improved BG control - BGs 200's, 300's, h/o DM w/ A1C of 9.1 + pt on steroidal med 3) Wound care: add JANUARY BID 4) Monitor lytes, replete as needed 5) Monitor residuals, TF tolerance 6) Monitor HD stability- hypotensive at this time
--- NOTE | 2018-10-21 16:51 | Nephrology Progress Note ---
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 Plan Plan: K and Phos IV as needed IV Pepcid continue the rest DNAR / DNI Comfort care Poor prognosis Subjective ROS Limited/Unobtainable: No Constitutional: Reports: malaise Objective Objective Last 24 Hour Vital Signs Date Time Temp Pulse Resp B/P (MAP) Pulse Ox O2 Delivery O2 Flow Rate FiO2 10/21/18 16:34 98.0 86 20 99/59 (72) 99 10/21/18 16:00 8.0 30 10/21/18 16:00 98.1 104 20 89/48 (62) 99 10/21/18 14:05 98.3 86 20 77/49 (58) 99 10/21/18 13:55 98 18 99 T-piece 8.0 30 10/21/18 13:47 T-piece 8.0 30 10/21/18 13:46 98 T-piece 8.0 30 10/21/18 13:42 94 16 98 T-piece 8.0 30 10/21/18 12:00 92 10/21/18 12:00 8.0 30 10/21/18 11:56 98.3 92 20 79/48 (58) 99 10/21/18 09:00 86 84/53 10/21/18 09:00 Trach Collar 8.0 Trach Collar 8.0 10/21/18 08:07 100 17 99 T-piece 8.0 30 10/21/18 08:00 8.0 30 10/21/18 08:00 99 10/21/18 08:00 98.2 86 22 84/53 (63) 100 10/21/18 07:56 99 15 99 T-piece 8.0 30 10/21/18 07:56 99 T-piece 8.0 30 10/21/18 07:56 T-piece 8.0 30 10/21/18 04:00 99.2 124 18 147/89 (108) 97 10/21/18 04:00 112 10/21/18 04:00 8.0 30 10/21/18 01:36 98 T-piece 8.0 30 10/21/18 01:36 T-piece 8.0 30 10/21/18 01:35 T-piece 8.0 30 10/21/18 01:35 T-piece 8.0 30 10/21/18 00:00 97.2 124 19 155/91 (112) 98 10/21/18 00:00 85 10/20/18 21:00 92 116/70 10/20/18 21:00 Trach Collar 8.0 Trach Collar 8.0 10/20/18 20:17 98 18 98 T-piece 8.0 30 10/20/18 20:04 80 18 T-piece 8.0 30 10/20/18 20:02 80 18 96 T-piece 8.0 30 10/20/18 20:02 96 T-piece 8.0 30 10/20/18 20:02 T-piece 8.0 30 10/20/18 20:00 98.0 92 18 116/70 (85) 100 10/20/18 20:00 8.0 30 10/20/18 20:00 83 Intake and Output 10/20/18 10/21/18 19:00 07:00 Intake Total 330.000 ml Output Total 550 ml 850 ml Balance -220.000 ml -850 ml IV Total 330.000 ml Output Urine Total 250 ml 850 ml Stool Total 300 ml Laboratory Tests 10/21/18 00:30: Vancomycin Level Trough 17.6H 10/21/18 05:15: White Blood Count 14.1H, Red Blood Count 2.98L, Hemoglobin 9.5L, Hematocrit 28.0L, Mean Corpuscular Volume 94, Mean Corpuscular Hemoglobin 31.8H, Mean Corpuscular Hemoglobin Concent 33.8, Red Cell Distribution Width 16.1H, Platelet Count 128L, Mean Platelet Volume 8.3, Neutrophils (%) (Auto) , Lymphocytes (%) (Auto) , Monocytes (%) (Auto) , Eosinophils (%) (Auto) , Basophils (%) (Auto) , Differential Total Cells Counted 100, Neutrophils % ( Manual) 88H, Lymphocytes % (Manual) 11L, Monocytes % (Manual) 1, Eosinophils % ( Manual) 0, Basophils % (Manual) 0, Band Neutrophils 0, Platelet Estimate DecreasedL, Platelet Morphology Normal, Anisocytosis 1+, Sodium Level 135L, Potassium Level 4.2, Chloride Level 101, Carbon Dioxide Level 27, Anion Gap 7, Blood Urea Nitrogen 20H, Creatinine 0.7, Estimat Glomerular Filtration Rate > 60 , Glucose Level 318#H, Calcium Level 8.6 Height (Feet): 5 Height (Inches): 7.00 Weight (Pounds): 148 General Appearance: no apparent distress Objective no change Clint Piper MD Oct 21, 2018 16:51
--- NOTE | 2018-10-21 19:05 | NUR ---
barcode unreadable for mucomyst.
[2018-10-21] MEDS ORDERED: Tubing IV Secondary IV ONE (19:15)
--- NOTE | 2018-10-21 19:15 | General Progress Note ---
Assessment/Plan Problem List: (1) Cerebral infarction ICD Codes: I63.9 - Cerebral infarction, unspecified SNOMED: 332334637 (2) Renal failure ICD Codes: N19 - Unspecified kidney failure SNOMED: 90753741 Qualifiers: Qualified Codes: N17.9 - Acute kidney failure, unspecified (3) Encephalopathy ICD Codes: G93.40 - Encephalopathy, unspecified SNOMED: 56966986 (4) Lactic acid acidosis ICD Codes: E87.2 - Acidosis SNOMED: 97615840 (5) Tracheostomy care ICD Codes: Z43.0 - Encounter for attention to tracheostomy SNOMED: 468325015 (6) LUZ MARIA (acute kidney injury) ICD Codes: N17.9 - Acute kidney failure, unspecified SNOMED: 68571486 (7) DNAR (do not attempt resuscitation) ICD Codes: Z66 - Do not resuscitate SNOMED: 226072891 (8) Dehydration ICD Codes: E86.0 - Dehydration SNOMED: 84993803 (9) Iron deficiency ICD Codes: E61.1 - Iron deficiency SNOMED: 01029872 Status: progressing Assessment/Plan nonverbal reviewed chart and labs pna sepsis persistent persistent leukocytosis trach Subjective ROS Limited/Unobtainable: Yes Allergies: Coded Allergies: No Known Allergies (Unverified , 10/11/18) Objective Last 24 Hour Vital Signs Date Time Temp Pulse Resp B/P (MAP) Pulse Ox O2 Delivery O2 Flow Rate FiO2 10/21/18 19:13 90 16 100 T-piece 6.0 28 10/21/18 19:12 T-piece 6.0 28 10/21/18 19:07 100 T-piece 6.0 28 10/21/18 16:34 98.0 86 20 99/59 (72) 99 10/21/18 16:00 91 10/21/18 16:00 8.0 30 10/21/18 16:00 98.1 104 20 89/48 (62) 99 10/21/18 14:05 98.3 86 20 77/49 (58) 99 10/21/18 13:55 98 18 99 T-piece 8.0 30 10/21/18 13:47 T-piece 8.0 30 10/21/18 13:46 98 T-piece 8.0 30 10/21/18 13:42 94 16 98 T-piece 8.0 30 10/21/18 12:00 92 10/21/18 12:00 8.0 30 10/21/18 11:56 98.3 92 20 79/48 (58) 99 10/21/18 09:00 86 84/53 10/21/18 09:00 Trach Collar 8.0 Trach Collar 8.0 10/21/18 08:07 100 17 99 T-piece 8.0 30 10/21/18 08:00 8.0 30 10/21/18 08:00 99 10/21/18 08:00 98.2 86 22 84/53 (63) 100 10/21/18 07:56 99 15 99 T-piece 8.0 30 10/21/18 07:56 99 T-piece 8.0 30 10/21/18 07:56 T-piece 8.0 30 10/21/18 04:00 99.2 124 18 147/89 (108) 97 10/21/18 04:00 112 10/21/18 04:00 8.0 30 10/21/18 01:36 98 T-piece 8.0 30 10/21/18 01:36 T-piece 8.0 30 10/21/18 01:35 T-piece 8.0 30 10/21/18 01:35 T-piece 8.0 30 10/21/18 00:00 97.2 124 19 155/91 (112) 98 10/21/18 00:00 85 10/20/18 21:00 92 116/70 10/20/18 21:00 Trach Collar 8.0 Trach Collar 8.0 10/20/18 20:17 98 18 98 T-piece 8.0 30 10/20/18 20:04 80 18 T-piece 8.0 30 10/20/18 20:02 80 18 96 T-piece 8.0 30 10/20/18 20:02 96 T-piece 8.0 30 10/20/18 20:02 T-piece 8.0 30 10/20/18 20:00 98.0 92 18 116/70 (85) 100 10/20/18 20:00 8.0 30 10/20/18 20:00 83 Intake and Output 10/20/18 10/21/18 19:00 07:00 Intake Total 330.000 ml Output Total 550 ml 850 ml Balance -220.000 ml -850 ml IV Total 330.000 ml Output Urine Total 250 ml 850 ml Stool Total 300 ml Laboratory Tests 10/21/18 00:30: Vancomycin Level Trough 17.6H 10/21/18 05:15: White Blood Count 14.1H, Red Blood Count 2.98L, Hemoglobin 9.5L, Hematocrit 28.0L, Mean Corpuscular Volume 94, Mean Corpuscular Hemoglobin 31.8H, Mean Corpuscular Hemoglobin Concent 33.8, Red Cell Distribution Width 16.1H, Platelet Count 128L, Mean Platelet Volume 8.3, Neutrophils (%) (Auto) , Lymphocytes (%) (Auto) , Monocytes (%) (Auto) , Eosinophils (%) (Auto) , Basophils (%) (Auto) , Differential Total Cells Counted 100, Neutrophils % ( Manual) 88H, Lymphocytes % (Manual) 11L, Monocytes % (Manual) 1, Eosinophils % ( Manual) 0, Basophils % (Manual) 0, Band Neutrophils 0, Platelet Estimate DecreasedL, Platelet Morphology Normal, Anisocytosis 1+, Sodium Level 135L, Potassium Level 4.2, Chloride Level 101, Carbon Dioxide Level 27, Anion Gap 7, Blood Urea Nitrogen 20H, Creatinine 0.7, Estimat Glomerular Filtration Rate > 60 , Glucose Level 318#H, Calcium Level 8.6 Height (Feet): 5 Height (Inches): 7.00 Weight (Pounds): 148 Neck: supple Cardiovascular: normal rate Respiratory/Chest: lungs clear Abdomen: soft Lula Aaron MD Oct 21, 2018 19:15
--- NOTE | 2018-10-21 23:24 | NUR ---
HAND-OFF: Report given to KOLE Phillips. Endoresed plan of care.
--- NOTE | 2018-10-21 23:39 | NUR ---
NURSE NOTES: ASSUMED CARE OF PATIENT AT THIS TIME. PATIENT NON-VERBAL, ON COOLING BLANKET, O2 AT 6 L VIA T- PIECE. NO SIGNS OF RESPIRATORY DISTRESS NOTED. FALL AND ASPIRATION PRECAUTIONS IN PLACE: CALL LIGHT WITHIN REACH, BED IN LOW POSITION AND BED ALARM ON; HOB ELEVATED. WILL CONTINUE WITH PLAN OF CARE.
--- NOTE | 2018-10-21 23:43 | Cardiology Progress Note ---
Assessment/Plan Assessment/Plan 1. Septic shock,resolved, due to B/L pneumonia. 2. Dyspnea due to B/L pneumonia, 2D echo revealing + wall motion abnormalities in the septal wall, ? ischemic CM, LVEF ~45%. 3. CVA with severe debilitation, consider ASA and statins. 4. Dysphagia, s/p PEG placement. 5. VDRF, s/p tracheostomy placement. 6. Sinus tachycardia, resolved, continue metoprolol. Subjective Subjective Sinus rhythm at rate of 86. On T-piece, FiO2 30%. Objective Last 24 Hour Vital Signs Date Time Temp Pulse Resp B/P (MAP) Pulse Ox O2 Delivery O2 Flow Rate FiO2 10/21/18 21:00 Trach Collar 8.0 Trach Collar 8.0 10/21/18 20:18 86 103/57 10/21/18 20:00 97.9 86 20 103/57 (72) 99 10/21/18 20:00 8.0 30 10/21/18 20:00 88 10/21/18 19:14 88 20 99 T-piece 6.0 28 10/21/18 19:13 90 16 100 T-piece 6.0 28 10/21/18 19:12 T-piece 6.0 28 10/21/18 19:07 100 T-piece 6.0 28 10/21/18 16:34 98.0 86 20 99/59 (72) 99 10/21/18 16:00 91 10/21/18 16:00 8.0 30 10/21/18 16:00 98.1 104 20 89/48 (62) 99 10/21/18 14:05 98.3 86 20 77/49 (58) 99 10/21/18 13:55 98 18 99 T-piece 8.0 30 10/21/18 13:47 T-piece 8.0 30 10/21/18 13:46 98 T-piece 8.0 30 10/21/18 13:42 94 16 98 T-piece 8.0 30 10/21/18 12:00 92 10/21/18 12:00 8.0 30 10/21/18 11:56 98.3 92 20 79/48 (58) 99 10/21/18 09:00 86 84/53 10/21/18 09:00 Trach Collar 8.0 Trach Collar 8.0 10/21/18 08:07 100 17 99 T-piece 8.0 30 10/21/18 08:00 8.0 30 10/21/18 08:00 99 10/21/18 08:00 98.2 86 22 84/53 (63) 100 10/21/18 07:56 99 15 99 T-piece 8.0 30 10/21/18 07:56 99 T-piece 8.0 30 10/21/18 07:56 T-piece 8.0 30 10/21/18 04:00 99.2 124 18 147/89 (108) 97 10/21/18 04:00 112 10/21/18 04:00 8.0 30 10/21/18 01:36 98 T-piece 8.0 30 10/21/18 01:36 T-piece 8.0 30 10/21/18 01:35 T-piece 8.0 30 10/21/18 01:35 T-piece 8.0 30 10/21/18 00:00 97.2 124 19 155/91 (112) 98 10/21/18 00:00 85 Intake and Output 10/20/18 10/21/18 19:00 07:00 Intake Total 330.000 ml Output Total 550 ml 850 ml Balance -220.000 ml -850 ml IV Total 330.000 ml Output Urine Total 250 ml 850 ml Stool Total 300 ml 2D Echo: LVEF 45%, Septal wall hypokinesia, Grade I LVDD Laboratory Tests Test 10/21/18 00:30 10/21/18 05:15 Vancomycin Level Trough 17.6 ug/mL (5.0-12.0) H White Blood Count 14.1 K/UL (4.8-10.8) H Red Blood Count 2.98 M/UL (4.70-6.10) L Hemoglobin 9.5 G/DL (14.2-18.0) L Hematocrit 28.0 % (42.0-52.0) L Mean Corpuscular Volume 94 FL (80-99) Mean Corpuscular Hemoglobin 31.8 PG (27.0-31.0) H Mean Corpuscular Hemoglobin Concent 33.8 G/DL (32.0-36.0) Red Cell Distribution Width 16.1 % (11.6-14.8) H Platelet Count 128 K/UL (150-450) L Mean Platelet Volume 8.3 FL (6.5-10.1) Neutrophils (%) (Auto) % (45.0-75.0) Lymphocytes (%) (Auto) % (20.0-45.0) Monocytes (%) (Auto) % (1.0-10.0) Eosinophils (%) (Auto) % (0.0-3.0) Basophils (%) (Auto) % (0.0-2.0) Differential Total Cells Counted 100 Neutrophils % (Manual) 88 % (45-75) H Lymphocytes % (Manual) 11 % (20-45) L Monocytes % (Manual) 1 % (1-10) Eosinophils % (Manual) 0 % (0-3) Basophils % (Manual) 0 % (0-2) Band Neutrophils 0 % (0-8) Platelet Estimate Decreased L Platelet Morphology Normal Anisocytosis 1+ Sodium Level 135 MMOL/L (136-145) L Potassium Level 4.2 MMOL/L (3.5-5.1) Chloride Level 101 MMOL/L (98-107) Carbon Dioxide Level 27 MMOL/L (21-32) Anion Gap 7 mmol/L (5-15) Blood Urea Nitrogen 20 mg/dL (7-18) H Creatinine 0.7 MG/DL (0.55-1.30) Estimat Glomerular Filtration Rate > 60 mL/min (>60) Glucose Level 318 MG/DL (74-106) #H Calcium Level 8.6 MG/DL (8.5-10.1) Microbiology Date/Time Source Procedure Growth Status 10/19/18 03:30 Urine,Ureter/Kidney Urine Culture - Final Escherichia Coli - Esbl Complete Objective HEENT: Atraumatic, bitemporal wasting, dry mucosal membranes, PERRLA NECK: cannot assess JVP, tracheostomy tube in place. HEART: Regular rate and rhythm. No murmurs, gallops or rubs. Lungs: Bibasilar crackles. ABDOMEN: Soft, NT/ND, + BS. G-tube in place. EXTREMITIES: No edema, clubbing or cyanosis. NEUROLOGIC: Nonresponsive, vegetative state. Davy Estrada MD Oct 21, 2018 23:43
[2018-10-22] VITALS: BP 103/58
[2018-10-22] MEDS: Albuterol/Ipratropium 3ml neb HHN SCH ×4 (01:34→20:06)
[2018-10-22] MEDS: Vancomycin 1gm/D5W 275ml IVPB SCH ×4 (01:46→13:42)
--- NOTE | 2018-10-22 02:00 | NUR ---
NURSE NOTES: PATIENT KEPT CLEAN AND DRY, BED BATH GIVEN, LOTION APPLIED, ORAL CARE PROVIDED. BLE ELEVATED ON PILLOW WITH HEELS FLOATING.
[2018-10-22 04:00] VITALS: BP 86/49
[2018-10-22] MEDS: NovoLOG Insulin Flexpen SUBQ SCH ×3 (06:01→18:14)
--- NOTE | 2018-10-22 06:40 | NUR ---
NURSE NOTES: PATIENT KEPT CLEAN AND DRY, DRESSING TO GT SITE CHANGED, DRESSING TO SACRAL AREA DRY AND INTACT.
--- NOTE | 2018-10-22 07:25 | NUR ---
NURSE NOTES: I received the patient resting in bed. Patient nonverbal. Patient does not display any signs of distress or SOB. Bed in the lowest position and call light within reach.
--- NOTE | 2018-10-22 07:28 | NUR ---
HAND-OFF: Report given to Kelvin BURKS RN. PATIENT ASLEEP, NO SINGS OF DISTRESS NOTED.
[2018-10-22 08:00] VITALS: BP 104/55
[2018-10-22] MEDS: Heparin 5000 units/ml inj SUBQ SCH ×2 (09:00→21:00)
[2018-10-22] MEDS: Metoprolol 25mg tab ORAL SCH ×2 (09:00→21:00)
[2018-10-22 09:42] LABS: BASOPHILS % (AUTO) 0.3 % (0.0-2.0); EOSINOPHILS % (AUTO) 0.1 % (0.0-3.0); HEMATOCRIT 23.7 % (42.0-52.0); HEMOGLOBIN 8.1 G/DL (14.2-18.0); LYMPHOCYTES % (AUTO) 18.4 % (20.0-45.0); MEAN CORPUSCULAR VOLUME 95 FL (80-99); MONOCYTES % (AUTO) 3.6 % (1.0-10.0); NEUTROPHILS % (AUTO) 77.6 % (45.0-75.0); PLATELET COUNT 126 K/UL (150-450); RED BLOOD COUNT 2.51 M/UL (4.70-6.10); RED CELL DISTRIBUTION WIDTH 18.7 % (11.6-14.8)
[2018-10-22 09:46] LABS: ANION GAP 5 mmol/L (5-15); BLOOD UREA NITROGEN 14 mg/dL (7-18); CALCIUM 9.1 MG/DL (8.5-10.1); CARBON DIOXIDE 31 MMOL/L (21-32); CHLORIDE 104 MMOL/L (98-107); CREATININE 0.7 MG/DL (0.55-1.30); POTASSIUM 3.4 MMOL/L (3.5-5.1); SODIUM 139 MMOL/L (136-145)
[2018-10-22] MEDS: Levofloxacin 750mg tab GT SCH (09:56)
[2018-10-22] MEDS: Hydrocortisone 100mg Inj IV SCH ×2 (09:56→18:11)
--- NOTE | 2018-10-22 10:27 | Pulmonology Progress Note ---
Assessment/Plan Problems: (1) Cerebral infarction (2) Encephalopathy (3) Severe sepsis (4) Lactic acid acidosis (5) Tracheostomy care (6) Feeding by G-tube (7) DNAR (do not attempt resuscitation) Assessment/Plan -ABX per ID, F/U repeat CX's -Monitor fever curve -Optimize pulmonary hygiene/mobilize as tolerated -Continue TC -Titrate O2 -HHN's and NAC -TF's as tolerated -Continue HC 25 BID and taper -Monitor volumes and renal function -DNAR -Dispo planning once acute issues resolve: would only transfer to SNF if being D /C'd on hospice. Otherwise, needs to be on IV Abx and still not hemodynamically stable. Subjective Allergies: Coded Allergies: No Known Allergies (Unverified , 10/11/18) Subjective Tm 100 E coli in urine RUL infiltrate WCt 15 BP borderline No cough but still with thick secretions being suctioned no SOB Objective Last 24 Hour Vital Signs Date Time Temp Pulse Resp B/P (MAP) Pulse Ox O2 Delivery O2 Flow Rate FiO2 10/22/18 09:00 96 104/55 10/22/18 08:05 96 16 100 T-piece 6.0 28 10/22/18 08:05 100 T-piece 6.0 28 10/22/18 08:05 T-piece 6.0 28 10/22/18 08:05 96 20 99 T-piece 6.0 28 10/22/18 08:00 6.0 30 10/22/18 08:00 104/55 (71) 10/22/18 04:00 96.4 93 19 86/49 (61) 99 10/22/18 04:00 84 10/22/18 04:00 6.0 30 10/22/18 01:54 85 16 100 T-piece 6.0 28 10/22/18 01:54 92 20 99 T-piece 6.0 28 10/22/18 01:53 100 T-piece 6.0 28 10/22/18 01:53 T-piece 6.0 28 10/22/18 00:00 6.0 30 10/22/18 00:00 90 10/22/18 00:00 97.2 81 19 103/58 (73) 100 10/21/18 21:00 Trach Collar 8.0 Trach Collar 8.0 10/21/18 20:18 86 103/57 10/21/18 20:00 97.9 86 20 103/57 (72) 99 10/21/18 20:00 8.0 30 10/21/18 20:00 88 10/21/18 19:14 88 20 99 T-piece 6.0 28 10/21/18 19:13 90 16 100 T-piece 6.0 28 10/21/18 19:12 T-piece 6.0 28 10/21/18 19:07 100 T-piece 6.0 28 10/21/18 16:34 98.0 86 20 99/59 (72) 99 10/21/18 16:00 91 10/21/18 16:00 8.0 30 10/21/18 16:00 98.1 104 20 89/48 (62) 99 10/21/18 14:05 98.3 86 20 77/49 (58) 99 10/21/18 13:55 98 18 99 T-piece 8.0 30 10/21/18 13:47 T-piece 8.0 30 10/21/18 13:46 98 T-piece 8.0 30 10/21/18 13:42 94 16 98 T-piece 8.0 30 10/21/18 12:00 92 10/21/18 12:00 8.0 30 10/21/18 11:56 98.3 92 20 79/48 (58) 99 Intake and Output 10/21/18 10/22/18 18:59 06:59 Intake Total 930.000 ml 725.000 ml Output Total 950 ml 1000 ml Balance -20.000 ml -275.000 ml Intake Free Water 100 ml IV Total 930.000 ml 275.000 ml Tube Feeding 350 ml Output Urine Total 950 ml 1000 ml General Appearance: no acute distress, cachetic HEENT: normocephalic, atraumatic, anicteric, mucous membranes moist, status post trach Respiratory/Chest: rhonchi Cardiovascular: normal peripheral pulses, normal rate, regular rhythm Abdomen: normal bowel sounds, soft, non tender, no organomegaly, non distended , no mass, other - GT Extremities: no cyanosis, no clubbing, no edema Laboratory Tests 10/22/18 09:03: White Blood Count 15.0H, Red Blood Count 2.51L, Hemoglobin 8.1L, Hematocrit 23.7L, Mean Corpuscular Volume 95, Mean Corpuscular Hemoglobin 32.2H, Mean Corpuscular Hemoglobin Concent 34.0, Red Cell Distribution Width 18.7H, Platelet Count 126L, Mean Platelet Volume 8.5, Neutrophils (%) (Auto) 77.6H, Lymphocytes (%) (Auto) 18.4L, Monocytes (%) (Auto) 3.6, Eosinophils (%) (Auto) 0.1, Basophils (%) (Auto) 0.3, Sodium Level 139, Potassium Level 3.4L, Chloride Level 104, Carbon Dioxide Level 31, Anion Gap 5, Blood Urea Nitrogen 14, Creatinine 0.7, Estimat Glomerular Filtration Rate > 60, Glucose Level 190#H, Calcium Level 9.1 Current Medications Medications (Trade) Dose Ordered Sig/Last Route PRN Reason Start Time Stop Time Status Last Admin Dose Admin Acetaminophen (Tylenol) 650 mg Q4H PRN NG for fever >100.3 10/18/18 01:30 11/17/18 01:29 10/20/18 12:51 Acetaminophen (Tylenol) 650 mg Q4H PRN RECTAL Prn Headache/Temp > 101 10/17/18 07:30 11/16/18 07:29 Acetylcysteine (Mucomyst) 100 mg TIDRT N 10/19/18 13:00 11/15/18 12:59 10/22/18 08:04 Albuterol/ Ipratropium (Albuterol/ Ipratropium) 3 ml Q6HRT N 10/19/18 13:00 10/26/18 12:59 10/22/18 08:04 Dextrose (Dextrose 50%) 25 ml Q30M PRN IV Hypoglycemia 10/19/18 10:45 11/18/18 10:44 Dextrose (Dextrose 50%) 50 ml Q30M PRN IV Hypoglycemia 10/19/18 10:45 11/18/18 10:44 Famotidine (Pepcid) 20 mg BID GT 10/19/18 09:00 11/18/18 08:59 10/22/18 09:55 Heparin Sodium (Porcine) (Heparin 5000 units/ml) 5,000 units EVERY 12 HOURS SUBQ 10/17/18 09:00 11/10/18 20:59 10/20/18 22:25 Hydrocortisone (Solu-CORTEF) 25 mg BID IV 10/19/18 09:00 11/10/18 21:59 10/22/18 09:56 Insulin Aspart (NovoLOG) EVERY 6 HOURS SUBQ 10/19/18 12:00 11/18/18 11:59 10/22/18 06:01 Levofloxacin (Levaquin) 750 mg DAILY GT 10/22/18 09:00 10/29/18 08:59 10/22/18 09:56 Metoclopramide HCl (Reglan) 10 mg Q8H PRN IVP Nausea & Vomiting 10/19/18 09:45 11/18/18 09:44 10/19/18 09:58 Metoprolol Tartrate (Lopressor) 25 mg Q12HR ORAL 10/18/18 09:00 11/17/18 08:59 10/19/18 08:34 Potassium Chloride (K-Dur) 40 meq TWICE A DAY GT 10/17/18 09:00 11/15/18 17:59 10/22/18 09:56 Vancomycin HCl (Vanco rx to dose) 1 ea DAILY PRN MISC Per rx protocol 10/19/18 11:15 11/18/18 11:14 Vancomycin HCl 1 gm/Dextrose 275 ml @ 183.708 mls/hr Q12HR@0100,1300 IVPB 10/20/18 01:00 10/25/18 00:59 10/22/18 01:46 Jordy Lou MD Oct 22, 2018 10:27
--- NOTE | 2018-10-22 10:58 | Infectious Diseases Prog Note ---
Assessment/Plan Assessment/Plan antibiotics : vancomycin iv, levoquin A 1. e.coli UTI 2. leucocytosis increased likely secondary to steroids 3. respiratory failure 4. diabetes mellitus 5. CHF 6. rectal VRE colonization P 1. continue vancomycin iv, levoquin 2. will follow up cultures Subjective ROS Limited/Unobtainable: Yes Allergies: Coded Allergies: No Known Allergies (Unverified , 10/11/18) Objective Vital Signs Last 24 Hour Vital Signs Date Time Temp Pulse Resp B/P (MAP) Pulse Ox O2 Delivery O2 Flow Rate FiO2 10/22/18 09:00 96 104/55 10/22/18 08:05 96 16 100 T-piece 6.0 28 10/22/18 08:05 100 T-piece 6.0 28 10/22/18 08:05 T-piece 6.0 28 10/22/18 08:05 96 20 99 T-piece 6.0 28 10/22/18 08:00 6.0 30 10/22/18 08:00 104/55 (71) 10/22/18 04:00 96.4 93 19 86/49 (61) 99 10/22/18 04:00 84 10/22/18 04:00 6.0 30 10/22/18 01:54 85 16 100 T-piece 6.0 28 10/22/18 01:54 92 20 99 T-piece 6.0 28 10/22/18 01:53 100 T-piece 6.0 28 10/22/18 01:53 T-piece 6.0 28 10/22/18 00:00 6.0 30 10/22/18 00:00 90 10/22/18 00:00 97.2 81 19 103/58 (73) 100 10/21/18 21:00 Trach Collar 8.0 Trach Collar 8.0 10/21/18 20:18 86 103/57 10/21/18 20:00 97.9 86 20 103/57 (72) 99 10/21/18 20:00 8.0 30 10/21/18 20:00 88 10/21/18 19:14 88 20 99 T-piece 6.0 28 10/21/18 19:13 90 16 100 T-piece 6.0 28 10/21/18 19:12 T-piece 6.0 28 10/21/18 19:07 100 T-piece 6.0 28 10/21/18 16:34 98.0 86 20 99/59 (72) 99 10/21/18 16:00 91 10/21/18 16:00 8.0 30 10/21/18 16:00 98.1 104 20 89/48 (62) 99 10/21/18 14:05 98.3 86 20 77/49 (58) 99 10/21/18 13:55 98 18 99 T-piece 8.0 30 10/21/18 13:47 T-piece 8.0 30 10/21/18 13:46 98 T-piece 8.0 30 10/21/18 13:42 94 16 98 T-piece 8.0 30 10/21/18 12:00 92 10/21/18 12:00 8.0 30 10/21/18 11:56 98.3 92 20 79/48 (58) 99 Height (Feet): 5 Height (Inches): 7.00 Weight (Pounds): 144 HEENT: status post trach Respiratory/Chest: lungs clear Cardiovascular: normal rate, regular rhythm, no gallop/murmur Abdomen: soft, non tender, other - GT Extremities: no edema Laboratory Tests Test 10/22/18 09:03 White Blood Count 15.0 K/UL (4.8-10.8) H Red Blood Count 2.51 M/UL (4.70-6.10) L Hemoglobin 8.1 G/DL (14.2-18.0) L Hematocrit 23.7 % (42.0-52.0) L Mean Corpuscular Volume 95 FL (80-99) Mean Corpuscular Hemoglobin 32.2 PG (27.0-31.0) H Mean Corpuscular Hemoglobin Concent 34.0 G/DL (32.0-36.0) Red Cell Distribution Width 18.7 % (11.6-14.8) H Platelet Count 126 K/UL (150-450) L Mean Platelet Volume 8.5 FL (6.5-10.1) Neutrophils (%) (Auto) 77.6 % (45.0-75.0) H Lymphocytes (%) (Auto) 18.4 % (20.0-45.0) L Monocytes (%) (Auto) 3.6 % (1.0-10.0) Eosinophils (%) (Auto) 0.1 % (0.0-3.0) Basophils (%) (Auto) 0.3 % (0.0-2.0) Sodium Level 139 MMOL/L (136-145) Potassium Level 3.4 MMOL/L (3.5-5.1) L Chloride Level 104 MMOL/L (98-107) Carbon Dioxide Level 31 MMOL/L (21-32) Anion Gap 5 mmol/L (5-15) Blood Urea Nitrogen 14 mg/dL (7-18) Creatinine 0.7 MG/DL (0.55-1.30) Estimat Glomerular Filtration Rate > 60 mL/min (>60) Glucose Level 190 MG/DL (74-106) #H Calcium Level 9.1 MG/DL (8.5-10.1) Current Medications Medications (Trade) Dose Ordered Sig/Last Route PRN Reason Start Time Stop Time Status Last Admin Dose Admin Acetaminophen (Tylenol) 650 mg Q4H PRN NG for fever >100.3 10/18/18 01:30 11/17/18 01:29 10/20/18 12:51 Acetaminophen (Tylenol) 650 mg Q4H PRN RECTAL Prn Headache/Temp > 101 10/17/18 07:30 11/16/18 07:29 Acetylcysteine (Mucomyst) 100 mg TIDRT N 10/19/18 13:00 11/15/18 12:59 10/22/18 08:04 Albuterol/ Ipratropium (Albuterol/ Ipratropium) 3 ml Q6HRT N 10/19/18 13:00 10/26/18 12:59 10/22/18 08:04 Dextrose (Dextrose 50%) 25 ml Q30M PRN IV Hypoglycemia 10/19/18 10:45 11/18/18 10:44 Dextrose (Dextrose 50%) 50 ml Q30M PRN IV Hypoglycemia 10/19/18 10:45 11/18/18 10:44 Famotidine (Pepcid) 20 mg BID GT 10/19/18 09:00 11/18/18 08:59 10/22/18 09:55 Heparin Sodium (Porcine) (Heparin 5000 units/ml) 5,000 units EVERY 12 HOURS SUBQ 10/17/18 09:00 11/10/18 20:59 10/20/18 22:25 Hydrocortisone (Solu-CORTEF) 25 mg BID IV 10/19/18 09:00 11/10/18 21:59 10/22/18 09:56 Insulin Aspart (NovoLOG) EVERY 6 HOURS SUBQ 10/19/18 12:00 11/18/18 11:59 10/22/18 06:01 Levofloxacin (Levaquin) 750 mg DAILY GT 10/22/18 09:00 10/29/18 08:59 10/22/18 09:56 Metoclopramide HCl (Reglan) 10 mg Q8H PRN IVP Nausea & Vomiting 10/19/18 09:45 11/18/18 09:44 10/19/18 09:58 Metoprolol Tartrate (Lopressor) 25 mg Q12HR ORAL 10/18/18 09:00 11/17/18 08:59 10/19/18 08:34 Potassium Chloride (K-Dur) 40 meq TWICE A DAY GT 10/17/18 09:00 11/15/18 17:59 10/22/18 09:56 Vancomycin HCl (Vanco rx to dose) 1 ea DAILY PRN MISC Per rx protocol 10/19/18 11:15 11/18/18 11:14 Vancomycin HCl 1 gm/Dextrose 275 ml @ 183.708 mls/hr Q12HR@0100,1300 IVPB 10/20/18 01:00 10/25/18 00:59 10/22/18 01:46 Marilia Alanis MD Oct 22, 2018 10:58
[2018-10-22 12:00] VITALS: BP 86/59
--- NOTE | 2018-10-22 12:18 | NUR ---
CASE MANAGEMENT: REVIEW SI: PNA . SEPSIS T 97.2 HR 93 RR 19 BP 103/58 SAT 100% TRACH COLLAR FIO2 30 K 3.4 GLUCOSE 190 IS: LEVAQUIN GT QD VANCO IV Q12HR ALBUTEROL HHN Q6HR SOLU CORTEF IV BID LOPRESSOR PO Q12HR TELEMETRY UNIT STATUS DCP: PATIENT IS FROM [facility]
--- NOTE | 2018-10-22 14:47 | General Progress Note ---
Assessment/Plan Problem List: (1) Cerebral infarction ICD Codes: I63.9 - Cerebral infarction, unspecified SNOMED: 448332679 (2) Renal failure ICD Codes: N19 - Unspecified kidney failure SNOMED: 35022610 Qualifiers: Qualified Codes: N17.9 - Acute kidney failure, unspecified (3) Encephalopathy ICD Codes: G93.40 - Encephalopathy, unspecified SNOMED: 80971876 (4) Lactic acid acidosis ICD Codes: E87.2 - Acidosis SNOMED: 20183292 (5) Tracheostomy care ICD Codes: Z43.0 - Encounter for attention to tracheostomy SNOMED: 361268380 (6) LUZ MARIA (acute kidney injury) ICD Codes: N17.9 - Acute kidney failure, unspecified SNOMED: 39398075 (7) DNAR (do not attempt resuscitation) ICD Codes: Z66 - Do not resuscitate SNOMED: 913716785 (8) Dehydration ICD Codes: E86.0 - Dehydration SNOMED: 20638396 (9) Iron deficiency ICD Codes: E61.1 - Iron deficiency SNOMED: 44703451 Status: progressing Assessment/Plan persistent low grade fever so dc is on hold not cleared by consultants for dc pna sepsis persistent persistent leukocytosis trach Subjective ROS Limited/Unobtainable: Yes Allergies: Coded Allergies: No Known Allergies (Unverified , 10/11/18) Objective Last 24 Hour Vital Signs Date Time Temp Pulse Resp B/P (MAP) Pulse Ox O2 Delivery O2 Flow Rate FiO2 10/22/18 13:28 95 20 99 T-piece 6.0 28 10/22/18 13:26 T-piece 6.0 28 10/22/18 13:26 99 T-piece 6.0 28 10/22/18 13:26 90 16 100 T-piece 6.0 28 10/22/18 12:00 6.0 30 10/22/18 12:00 97.7 97 86/59 (68) 10/22/18 11:32 99 10/22/18 09:00 96 104/55 10/22/18 09:00 Trach Collar 8.0 Trach Collar 8.0 10/22/18 08:05 96 16 100 T-piece 6.0 28 10/22/18 08:05 100 T-piece 6.0 28 10/22/18 08:05 T-piece 6.0 28 10/22/18 08:05 96 20 99 T-piece 6.0 28 10/22/18 08:00 6.0 30 10/22/18 08:00 104/55 (71) 10/22/18 07:52 85 10/22/18 04:00 96.4 93 19 86/49 (61) 99 10/22/18 04:00 84 10/22/18 04:00 6.0 30 10/22/18 01:54 85 16 100 T-piece 6.0 28 10/22/18 01:54 92 20 99 T-piece 6.0 28 10/22/18 01:53 100 T-piece 6.0 28 10/22/18 01:53 T-piece 6.0 28 10/22/18 00:00 6.0 30 10/22/18 00:00 90 10/22/18 00:00 97.2 81 19 103/58 (73) 100 10/21/18 21:00 Trach Collar 8.0 Trach Collar 8.0 10/21/18 20:18 86 103/57 10/21/18 20:00 97.9 86 20 103/57 (72) 99 10/21/18 20:00 8.0 30 10/21/18 20:00 88 10/21/18 19:14 88 20 99 T-piece 6.0 28 10/21/18 19:13 90 16 100 T-piece 6.0 28 10/21/18 19:12 T-piece 6.0 28 10/21/18 19:07 100 T-piece 6.0 28 10/21/18 16:34 98.0 86 20 99/59 (72) 99 10/21/18 16:00 91 10/21/18 16:00 8.0 30 10/21/18 16:00 98.1 104 20 89/48 (62) 99 Intake and Output 10/21/18 10/22/18 19:00 07:00 Intake Total 930.000 ml 775.000 ml Output Total 950 ml 1000 ml Balance -20.000 ml -225.000 ml Intake Free Water 100 ml IV Total 930.000 ml 275.000 ml Tube Feeding 400 ml Output Urine Total 950 ml 1000 ml Laboratory Tests 10/22/18 09:03: White Blood Count 15.0H, Red Blood Count 2.51L, Hemoglobin 8.1L, Hematocrit 23.7L, Mean Corpuscular Volume 95, Mean Corpuscular Hemoglobin 32.2H, Mean Corpuscular Hemoglobin Concent 34.0, Red Cell Distribution Width 18.7H, Platelet Count 126L, Mean Platelet Volume 8.5, Neutrophils (%) (Auto) 77.6H, Lymphocytes (%) (Auto) 18.4L, Monocytes (%) (Auto) 3.6, Eosinophils (%) (Auto) 0.1, Basophils (%) (Auto) 0.3, Sodium Level 139, Potassium Level 3.4L, Chloride Level 104, Carbon Dioxide Level 31, Anion Gap 5, Blood Urea Nitrogen 14, Creatinine 0.7, Estimat Glomerular Filtration Rate > 60, Glucose Level 190#H, Calcium Level 9.1 Height (Feet): 5 Height (Inches): 7.00 Weight (Pounds): 144 Neck: supple Cardiovascular: normal rate Respiratory/Chest: lungs clear Abdomen: soft Lula Aaron MD Oct 22, 2018 14:47
--- NOTE | 2018-10-22 15:04 | Nephrology Progress Note ---
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 Plan Plan: K and Phos IV as needed IV Pepcid continue the rest DNAR / DNI Comfort care Poor prognosis Subjective ROS Limited/Unobtainable: No Constitutional: Reports: malaise Objective Objective Last 24 Hour Vital Signs Date Time Temp Pulse Resp B/P (MAP) Pulse Ox O2 Delivery O2 Flow Rate FiO2 10/22/18 13:28 95 20 99 T-piece 6.0 28 10/22/18 13:26 T-piece 6.0 28 10/22/18 13:26 99 T-piece 6.0 28 10/22/18 13:26 90 16 100 T-piece 6.0 28 10/22/18 12:00 6.0 30 10/22/18 12:00 97.7 97 86/59 (68) 10/22/18 11:32 99 10/22/18 09:00 96 104/55 10/22/18 09:00 Trach Collar 8.0 Trach Collar 8.0 10/22/18 08:05 96 16 100 T-piece 6.0 28 10/22/18 08:05 100 T-piece 6.0 28 10/22/18 08:05 T-piece 6.0 28 10/22/18 08:05 96 20 99 T-piece 6.0 28 10/22/18 08:00 6.0 30 10/22/18 08:00 104/55 (71) 10/22/18 07:52 85 10/22/18 04:00 96.4 93 19 86/49 (61) 99 10/22/18 04:00 84 10/22/18 04:00 6.0 30 10/22/18 01:54 85 16 100 T-piece 6.0 28 10/22/18 01:54 92 20 99 T-piece 6.0 28 10/22/18 01:53 100 T-piece 6.0 28 10/22/18 01:53 T-piece 6.0 28 10/22/18 00:00 6.0 30 10/22/18 00:00 90 10/22/18 00:00 97.2 81 19 103/58 (73) 100 10/21/18 21:00 Trach Collar 8.0 Trach Collar 8.0 10/21/18 20:18 86 103/57 10/21/18 20:00 97.9 86 20 103/57 (72) 99 10/21/18 20:00 8.0 30 10/21/18 20:00 88 10/21/18 19:14 88 20 99 T-piece 6.0 28 10/21/18 19:13 90 16 100 T-piece 6.0 28 10/21/18 19:12 T-piece 6.0 28 10/21/18 19:07 100 T-piece 6.0 28 10/21/18 16:34 98.0 86 20 99/59 (72) 99 10/21/18 16:00 91 10/21/18 16:00 8.0 30 10/21/18 16:00 98.1 104 20 89/48 (62) 99 Intake and Output 10/21/18 10/22/18 19:00 07:00 Intake Total 930.000 ml 775.000 ml Output Total 950 ml 1000 ml Balance -20.000 ml -225.000 ml Intake Free Water 100 ml IV Total 930.000 ml 275.000 ml Tube Feeding 400 ml Output Urine Total 950 ml 1000 ml Laboratory Tests 10/22/18 09:03: White Blood Count 15.0H, Red Blood Count 2.51L, Hemoglobin 8.1L, Hematocrit 23.7L, Mean Corpuscular Volume 95, Mean Corpuscular Hemoglobin 32.2H, Mean Corpuscular Hemoglobin Concent 34.0, Red Cell Distribution Width 18.7H, Platelet Count 126L, Mean Platelet Volume 8.5, Neutrophils (%) (Auto) 77.6H, Lymphocytes (%) (Auto) 18.4L, Monocytes (%) (Auto) 3.6, Eosinophils (%) (Auto) 0.1, Basophils (%) (Auto) 0.3, Sodium Level 139, Potassium Level 3.4L, Chloride Level 104, Carbon Dioxide Level 31, Anion Gap 5, Blood Urea Nitrogen 14, Creatinine 0.7, Estimat Glomerular Filtration Rate > 60, Glucose Level 190#H, Calcium Level 9.1 Height (Feet): 5 Height (Inches): 7.00 Weight (Pounds): 144 General Appearance: no apparent distress Cardiovascular: tachycardia Respiratory/Chest: decreased breath sounds Abdomen: soft Objective no change Clint Piper MD Oct 22, 2018 15:04
[2018-10-22 16:00] VITALS: BP 99/61
--- NOTE | 2018-10-22 19:30 | NUR ---
HAND-OFF: Report given to Gregg Jin RN.
--- NOTE | 2018-10-22 19:57 | NUR ---
NURSE NOTES: Received pt from [facility]. Pt awaiting clearance for DC. Pt comatose. Bed in lowest position. Call light within reach. GT feeding running. Will continue to monitor.
[2018-10-22 20:00] VITALS: BP 98/66
--- NOTE | 2018-10-22 23:42 | Cardiology Progress Note ---
Assessment/Plan Assessment/Plan 1. Septic shock,resolved, due to B/L pneumonia. 2. Dyspnea due to B/L pneumonia, 2D echo revealing + wall motion abnormalities in the septal wall, ? ischemic CM, LVEF ~45%. 3. CVA with severe debilitation, consider ASA and statins. 4. Dysphagia, s/p PEG placement. 5. VDRF, s/p tracheostomy placement. 6. Sinus tachycardia, resolved, continue metoprolol. Subjective Subjective Sinus rhythm at rate of 895. On Trach collar, FiO2 30%. Objective Last 24 Hour Vital Signs Date Time Temp Pulse Resp B/P (MAP) Pulse Ox O2 Delivery O2 Flow Rate FiO2 10/22/18 21:00 Trach Collar 8.0 Trach Collar 8.0 10/22/18 20:21 95 20 99 T-piece 8.0 30 10/22/18 20:06 T-piece 6.0 28 10/22/18 20:06 93 18 95 T-piece 6.0 28 10/22/18 20:06 95 T-piece 6.0 28 10/22/18 20:00 99.2 96 20 98/66 (77) 100 10/22/18 20:00 87 10/22/18 20:00 6.0 30 10/22/18 16:00 6.0 30 10/22/18 16:00 99.0 94 99/61 (74) 10/22/18 15:54 92 10/22/18 13:28 95 20 99 T-piece 6.0 28 10/22/18 13:26 T-piece 6.0 28 10/22/18 13:26 99 T-piece 6.0 28 10/22/18 13:26 90 16 100 T-piece 6.0 28 10/22/18 12:00 6.0 30 10/22/18 12:00 97.7 97 86/59 (68) 10/22/18 11:32 99 10/22/18 09:00 96 104/55 10/22/18 09:00 Trach Collar 8.0 Trach Collar 8.0 10/22/18 08:05 96 16 100 T-piece 6.0 28 10/22/18 08:05 100 T-piece 6.0 28 10/22/18 08:05 T-piece 6.0 28 10/22/18 08:05 96 20 99 T-piece 6.0 28 10/22/18 08:00 6.0 30 10/22/18 08:00 104/55 (71) 10/22/18 07:52 85 10/22/18 04:00 96.4 93 19 86/49 (61) 99 10/22/18 04:00 84 10/22/18 04:00 6.0 30 10/22/18 01:54 85 16 100 T-piece 6.0 28 10/22/18 01:54 92 20 99 T-piece 6.0 28 10/22/18 01:53 100 T-piece 6.0 28 10/22/18 01:53 T-piece 6.0 28 10/22/18 00:00 6.0 30 10/22/18 00:00 90 10/22/18 00:00 97.2 81 19 103/58 (73) 100 Intake and Output 10/21/18 10/22/18 19:00 07:00 Intake Total 930.000 ml 775.000 ml Output Total 950 ml 1000 ml Balance -20.000 ml -225.000 ml Intake Free Water 100 ml IV Total 930.000 ml 275.000 ml Tube Feeding 400 ml Output Urine Total 950 ml 1000 ml 2D Echo: LVEF 45%, Septal wall hypokinesia, Grade I LVDD Laboratory Tests Test 10/22/18 09:03 White Blood Count 15.0 K/UL (4.8-10.8) H Red Blood Count 2.51 M/UL (4.70-6.10) L Hemoglobin 8.1 G/DL (14.2-18.0) L Hematocrit 23.7 % (42.0-52.0) L Mean Corpuscular Volume 95 FL (80-99) Mean Corpuscular Hemoglobin 32.2 PG (27.0-31.0) H Mean Corpuscular Hemoglobin Concent 34.0 G/DL (32.0-36.0) Red Cell Distribution Width 18.7 % (11.6-14.8) H Platelet Count 126 K/UL (150-450) L Mean Platelet Volume 8.5 FL (6.5-10.1) Neutrophils (%) (Auto) 77.6 % (45.0-75.0) H Lymphocytes (%) (Auto) 18.4 % (20.0-45.0) L Monocytes (%) (Auto) 3.6 % (1.0-10.0) Eosinophils (%) (Auto) 0.1 % (0.0-3.0) Basophils (%) (Auto) 0.3 % (0.0-2.0) Sodium Level 139 MMOL/L (136-145) Potassium Level 3.4 MMOL/L (3.5-5.1) L Chloride Level 104 MMOL/L (98-107) Carbon Dioxide Level 31 MMOL/L (21-32) Anion Gap 5 mmol/L (5-15) Blood Urea Nitrogen 14 mg/dL (7-18) Creatinine 0.7 MG/DL (0.55-1.30) Estimat Glomerular Filtration Rate > 60 mL/min (>60) Glucose Level 190 MG/DL (74-106) #H Calcium Level 9.1 MG/DL (8.5-10.1) Objective HEENT: Atraumatic, bitemporal wasting, dry mucosal membranes, PERRLA NECK: cannot assess JVP, tracheostomy tube in place. HEART: Regular rate and rhythm. No murmurs, gallops or rubs. Lungs: Bibasilar crackles. ABDOMEN: Soft, NT/ND, + BS. G-tube in place. EXTREMITIES: No edema, clubbing or cyanosis. NEUROLOGIC: Nonresponsive, vegetative state. Davy Estrada MD Oct 22, 2018 23:42
[2018-10-23] VITALS (7 sets, daily range): BP systolic 71–109; BP diastolic 48–69
--- NOTE | 2018-10-23 01:00 | NUR ---
NURSE NOTES: Called and left a message with Dr. Aaron and Dr. Estrada regarding pts low BP 71/48. Awaiting call back
[2018-10-23] MEDS: Vancomycin 1gm/D5W 275ml IVPB SCH ×4 (01:15→13:22)
[2018-10-23] MEDS: NovoLOG Insulin Flexpen SUBQ SCH ×4 (01:16→17:30)
[2018-10-23] MEDS: Albuterol/Ipratropium 3ml neb HHN SCH ×4 (01:36→20:51)
--- NOTE | 2018-10-23 01:38 | NUR ---
NURSE NOTES: Dr. Aaron gave orders for bolus of NS .9%. Will give order when BP goes back down. Currently BP is 108 systolic. Will input order.
--- NOTE | 2018-10-23 07:20 | NUR ---
HAND-OFF: Report given to KOLE Li. Pt stable. Endorsed pts possible DC id Kelvin Bravo clears him.
--- NOTE | 2018-10-23 07:29 | NUR ---
Received report from KOLE Charles. Patient in bed resting, no active s/s cardiac, respiratory distress noticed at this time. SR with HR 93. IV on right wrist 22G asymptomatic, patent, intact. IV running at prescribed rate. Addendum: 10/23/18 at 0733 by JOSÉ MIGUEL HEARN RN NURSE NOTES: Received report from KOLE Charles. Patient in bed resting, no active s/s cardiac, respiratory distress noticed at this time. SR with HR 93. IV on right wrist 22G asymptomatic, patent, intact. Endorsed urine collected at 0400. IV running at prescribed rate. Bed in lowest position, side rails upx3, call light within reach. Will continue to monitor. Addendum: 10/23/18 at 0734 by JOSÉ MIGUEL HEARN RN wrong patient
--- NOTE | 2018-10-23 07:34 | NUR ---
NURSE NOTES: Received report from KOLE Thornton. Patient in bed resting, no active s/s cardiac, respiratory distress noticed at this time, Patient on T-piece FiO2 30%, denies pain at this time, SR with HR 93. Endorsed DC planning back to [facility] when cleared by Dr. Bravo and Dr. Lou. IV on left FA 22G asymptomatic, patent, intact. Bed in lowest position, HOB elevated, side rails upx3, call light within reach. Will continue to monitor.
[2018-10-23] MEDS: Metoprolol 25mg tab ORAL SCH ×2 (09:00→20:27)
[2018-10-23] MEDS: Heparin 5000 units/ml inj SUBQ SCH ×2 (09:00→20:28)
[2018-10-23] MEDS: Levofloxacin 750mg tab GT SCH (09:21)
[2018-10-23] MEDS: Hydrocortisone 100mg Inj IV SCH ×2 (09:22→17:29)
[2018-10-23] MEDS: Acetaminophen 650mg/20.3ml NG PRN ×3 (09:53→20:33)
--- NOTE | 2018-10-23 11:05 | NUR ---
NURSE NOTES: Per Dr. Aaron, discharge patient back to [facility] when cleared by Rishabh Bravo and Dr. Lou. Dr. Aaron made aware Rishabh Bravo is not on the case but Kelvin Bravo is on the case. Per Dr. Aaron, patient need clearance by Dr. Kelvin Bravo and Dr. Lou. Dr. Aaron made aware Tylenol given today for fever of 100.3 and fever decrease to 98.8.
--- NOTE | 2018-10-23 11:31 | Pulmonology Progress Note ---
Assessment/Plan Problems: (1) Cerebral infarction (2) Encephalopathy (3) Severe sepsis (4) Lactic acid acidosis (5) Tracheostomy care (6) Feeding by G-tube (7) DNAR (do not attempt resuscitation) Assessment/Plan Message left for patients daughterBlanche [phone], to discuss the case and further goals of care, will consider ETHICS eval -ABX per ID, F/U repeat CX's -Monitor fever curve -Optimize pulmonary hygiene/mobilize as tolerated -Continue TC -Titrate O2 -HHN's and NAC -TF's as tolerated -Continue HC 25 BID and taper -Monitor volumes and renal function -DNAR -Dispo planning once acute issues resolve: would only transfer to SNF if being D /C'd on hospice. Otherwise, needs to be on IV Abx and still not hemodynamically stable. Subjective Allergies: Coded Allergies: No Known Allergies (Unverified , 10/11/18) Subjective Tm 100 VSS no labs today BP stable No cough but still with thick secretions being suctioned no SOB Objective Last 24 Hour Vital Signs Date Time Temp Pulse Resp B/P (MAP) Pulse Ox O2 Delivery O2 Flow Rate FiO2 10/23/18 10:23 98.8 10/23/18 09:00 Trach Collar 8.0 Trach Collar 8.0 10/23/18 09:00 96 100/66 10/23/18 08:10 92 20 97 T-piece 8.0 30 10/23/18 08:00 6.0 30 10/23/18 08:00 100.3 96 20 100/66 (77) 97 10/23/18 07:59 99 18 99 T-piece 8.0 30 10/23/18 07:59 T-piece 8.0 30 10/23/18 07:59 99 T-piece 8.0 30 10/23/18 04:00 98.8 91 16 95/59 (71) 96 10/23/18 04:00 6.0 30 10/23/18 04:00 93 10/23/18 01:45 98 20 99 T-piece 8.0 30 10/23/18 01:35 T-piece 8.0 30 10/23/18 01:35 100 T-piece 8.0 30 10/23/18 01:35 93 18 100 T-piece 8.0 30 10/23/18 01:34 108/69 (82) 10/23/18 00:00 99.5 100 16 71/48 (56) 100 10/23/18 00:00 92 10/22/18 21:00 Trach Collar 8.0 Trach Collar 8.0 10/22/18 20:21 95 20 99 T-piece 8.0 30 10/22/18 20:06 T-piece 6.0 28 10/22/18 20:06 93 18 95 T-piece 6.0 28 10/22/18 20:06 95 T-piece 6.0 28 10/22/18 20:00 99.2 96 20 98/66 (77) 100 10/22/18 20:00 87 10/22/18 20:00 6.0 30 10/22/18 16:00 6.0 30 10/22/18 16:00 99.0 94 99/61 (74) 10/22/18 15:54 92 10/22/18 13:28 95 20 99 T-piece 6.0 28 10/22/18 13:26 T-piece 6.0 28 10/22/18 13:26 99 T-piece 6.0 28 10/22/18 13:26 90 16 100 T-piece 6.0 28 10/22/18 12:00 6.0 30 10/22/18 12:00 97.7 97 86/59 (68) 10/22/18 11:32 99 Intake and Output 10/22/18 10/23/18 18:59 06:59 Intake Total 600 ml Output Total 1000 ml Balance 600 ml -1000 ml Tube Feeding 600 ml Output Urine Total 1000 ml General Appearance: no acute distress, cachetic HEENT: normocephalic, atraumatic, anicteric, mucous membranes moist, status post trach Respiratory/Chest: rhonchi Cardiovascular: normal peripheral pulses, normal rate, regular rhythm Abdomen: normal bowel sounds, soft, non tender, no organomegaly, non distended , no mass, other - GT Extremities: no cyanosis, no clubbing, no edema Current Medications Medications (Trade) Dose Ordered Sig/Last Route PRN Reason Start Time Stop Time Status Last Admin Dose Admin Acetaminophen (Tylenol) 650 mg Q4H PRN NG for fever >100.3 10/18/18 01:30 11/17/18 01:29 10/23/18 09:53 Acetaminophen (Tylenol) 650 mg Q4H PRN RECTAL Prn Headache/Temp > 101 10/17/18 07:30 11/16/18 07:29 Acetylcysteine (Mucomyst) 100 mg TIDRT [facility] 10/19/18 13:00 11/15/18 12:59 10/23/18 07:59 Albuterol/ Ipratropium (Albuterol/ Ipratropium) 3 ml Q6HRT N 10/19/18 13:00 10/26/18 12:59 10/23/18 07:58 Dextrose (Dextrose 50%) 25 ml Q30M PRN IV Hypoglycemia 10/19/18 10:45 11/18/18 10:44 Dextrose (Dextrose 50%) 50 ml Q30M PRN IV Hypoglycemia 10/19/18 10:45 11/18/18 10:44 Famotidine (Pepcid) 20 mg BID GT 10/19/18 09:00 11/18/18 08:59 10/23/18 09:22 Heparin Sodium (Porcine) (Heparin 5000 units/ml) 5,000 units EVERY 12 HOURS SUBQ 10/17/18 09:00 11/10/18 20:59 10/20/18 22:25 Hydrocortisone (Solu-CORTEF) 25 mg BID IV 10/19/18 09:00 11/10/18 21:59 10/23/18 09:22 Insulin Aspart (NovoLOG) EVERY 6 HOURS SUBQ 10/19/18 12:00 11/18/18 11:59 10/23/18 06:00 Levofloxacin (Levaquin) 750 mg DAILY GT 10/22/18 09:00 10/29/18 08:59 10/23/18 09:21 Metoclopramide HCl (Reglan) 10 mg Q8H PRN IVP Nausea & Vomiting 10/19/18 09:45 11/18/18 09:44 10/19/18 09:58 Metoprolol Tartrate (Lopressor) 25 mg Q12HR ORAL 10/18/18 09:00 11/17/18 08:59 10/19/18 08:34 Potassium Chloride (K-Dur) 40 meq TWICE A DAY GT 10/17/18 09:00 11/15/18 17:59 10/23/18 09:21 Vancomycin HCl (Vanco rx to dose) 1 ea DAILY PRN MISC Per rx protocol 10/19/18 11:15 11/18/18 11:14 Vancomycin HCl 1 gm/Dextrose 275 ml @ 183.708 mls/hr Q12HR@0100,1300 IVPB 10/20/18 01:00 10/25/18 00:59 10/23/18 01:15 Jordy Lou MD Oct 23, 2018 11:31
--- NOTE | 2018-10-23 11:44 | Infectious Diseases Prog Note ---
Assessment/Plan Assessment/Plan IMPRESSION: New sepsis with fever & Leukocytosis Bacteremia with CoANS Urinary tract infection with ESBL E. coli pneumonia, acute renal failure, resolving lactic acidosis, resolving acute on chronic respiratory failure with hypoxemia, anemia, diabetes mellitus. Anemia Diarrhea, C. 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 Hypokalemia P: Continue Vancomycin & Levaquin repeat CXR Subjective ROS Limited/Unobtainable: Yes Constitutional: Reports: fever, other - Dvmq=296.3 Allergies: Coded Allergies: No Known Allergies (Unverified , 10/11/18) Objective Vital Signs Last 24 Hour Vital Signs Date Time Temp Pulse Resp B/P (MAP) Pulse Ox O2 Delivery O2 Flow Rate FiO2 10/23/18 10:23 98.8 10/23/18 09:00 Trach Collar 8.0 Trach Collar 8.0 10/23/18 09:00 96 100/66 10/23/18 08:10 92 20 97 T-piece 8.0 30 10/23/18 08:00 6.0 30 10/23/18 08:00 100.3 96 20 100/66 (77) 97 10/23/18 07:59 99 18 99 T-piece 8.0 30 10/23/18 07:59 T-piece 8.0 30 10/23/18 07:59 99 T-piece 8.0 30 10/23/18 04:00 98.8 91 16 95/59 (71) 96 10/23/18 04:00 6.0 30 10/23/18 04:00 93 10/23/18 01:45 98 20 99 T-piece 8.0 30 10/23/18 01:35 T-piece 8.0 30 10/23/18 01:35 100 T-piece 8.0 30 10/23/18 01:35 93 18 100 T-piece 8.0 30 10/23/18 01:34 108/69 (82) 10/23/18 00:00 99.5 100 16 71/48 (56) 100 10/23/18 00:00 92 10/22/18 21:00 Trach Collar 8.0 Trach Collar 8.0 10/22/18 20:21 95 20 99 T-piece 8.0 30 10/22/18 20:06 T-piece 6.0 28 10/22/18 20:06 93 18 95 T-piece 6.0 28 10/22/18 20:06 95 T-piece 6.0 28 10/22/18 20:00 99.2 96 20 98/66 (77) 100 10/22/18 20:00 87 10/22/18 20:00 6.0 30 10/22/18 16:00 6.0 30 10/22/18 16:00 99.0 94 99/61 (74) 10/22/18 15:54 92 10/22/18 13:28 95 20 99 T-piece 6.0 28 10/22/18 13:26 T-piece 6.0 28 10/22/18 13:26 99 T-piece 6.0 28 10/22/18 13:26 90 16 100 T-piece 6.0 28 10/22/18 12:00 6.0 30 10/22/18 12:00 97.7 97 86/59 (68) Height (Feet): 5 Height (Inches): 7.00 Weight (Pounds): 147 HEENT: status post trach Respiratory/Chest: rhonchi - bilaterally, other - on T bar Cardiovascular: normal rate Abdomen: soft, non tender, other - GT feding Extremities: no edema Neurologic/Psychiatric: aphasia Current Medications Medications (Trade) Dose Ordered Sig/Last Route PRN Reason Start Time Stop Time Status Last Admin Dose Admin Acetaminophen (Tylenol) 650 mg Q4H PRN NG for fever >100.3 10/18/18 01:30 11/17/18 01:29 10/23/18 09:53 Acetaminophen (Tylenol) 650 mg Q4H PRN RECTAL Prn Headache/Temp > 101 10/17/18 07:30 11/16/18 07:29 Acetylcysteine (Mucomyst) 100 mg TIDRT N 10/19/18 13:00 11/15/18 12:59 10/23/18 07:59 Albuterol/ Ipratropium (Albuterol/ Ipratropium) 3 ml Q6HRT N 10/19/18 13:00 10/26/18 12:59 10/23/18 07:58 Dextrose (Dextrose 50%) 25 ml Q30M PRN IV Hypoglycemia 10/19/18 10:45 11/18/18 10:44 Dextrose (Dextrose 50%) 50 ml Q30M PRN IV Hypoglycemia 10/19/18 10:45 11/18/18 10:44 Famotidine (Pepcid) 20 mg BID GT 10/19/18 09:00 11/18/18 08:59 10/23/18 09:22 Heparin Sodium (Porcine) (Heparin 5000 units/ml) 5,000 units EVERY 12 HOURS SUBQ 10/17/18 09:00 11/10/18 20:59 10/20/18 22:25 Hydrocortisone (Solu-CORTEF) 25 mg BID IV 10/19/18 09:00 11/10/18 21:59 10/23/18 09:22 Insulin Aspart (NovoLOG) EVERY 6 HOURS SUBQ 10/19/18 12:00 11/18/18 11:59 10/23/18 06:00 Levofloxacin (Levaquin) 750 mg DAILY GT 10/22/18 09:00 10/29/18 08:59 10/23/18 09:21 Metoclopramide HCl (Reglan) 10 mg Q8H PRN IVP Nausea & Vomiting 10/19/18 09:45 11/18/18 09:44 10/19/18 09:58 Metoprolol Tartrate (Lopressor) 25 mg Q12HR ORAL 10/18/18 09:00 11/17/18 08:59 10/19/18 08:34 Potassium Chloride (K-Dur) 40 meq TWICE A DAY GT 10/17/18 09:00 11/15/18 17:59 10/23/18 09:21 Vancomycin HCl (Vanco rx to dose) 1 ea DAILY PRN MISC Per rx protocol 10/19/18 11:15 11/18/18 11:14 Vancomycin HCl 1 gm/Dextrose 275 ml @ 183.708 mls/hr Q12HR@0100,1300 IVPB 10/20/18 01:00 10/25/18 00:59 10/23/18 01:15 Lucas Bravo MD Oct 23, 2018 11:44
--- NOTE | 2018-10-23 12:14 | NUR ---
CASE MANAGEMENT: REVIEW SI: PNA . SEPSIS T 100.3 HR 96 RR 20 BP 95/59 SAT 97% T-COLLAR FIO32 30 IS: LEVAQUIN GT QD VANCO IV Q12HR ALBUTEROL HHN Q6HR SOLU CORTEF IV BID LOPRESSOR PO Q12HR TELEMETRY UNIT STATUS DCP: PATIENT IS FROM [facility]
--- NOTE | 2018-10-23 12:47 | General Progress Note ---
Assessment/Plan Problem List: (1) Cerebral infarction ICD Codes: I63.9 - Cerebral infarction, unspecified SNOMED: 200447585 (2) Renal failure ICD Codes: N19 - Unspecified kidney failure SNOMED: 39335695 Qualifiers: Qualified Codes: N17.9 - Acute kidney failure, unspecified (3) Encephalopathy ICD Codes: G93.40 - Encephalopathy, unspecified SNOMED: 97781641 (4) Lactic acid acidosis ICD Codes: E87.2 - Acidosis SNOMED: 99184115 (5) Tracheostomy care ICD Codes: Z43.0 - Encounter for attention to tracheostomy SNOMED: 634051665 (6) LUZ MARIA (acute kidney injury) ICD Codes: N17.9 - Acute kidney failure, unspecified SNOMED: 93109874 (7) DNAR (do not attempt resuscitation) ICD Codes: Z66 - Do not resuscitate SNOMED: 762274169 (8) Dehydration ICD Codes: E86.0 - Dehydration SNOMED: 64459758 (9) Iron deficiency ICD Codes: E61.1 - Iron deficiency SNOMED: 18065364 Status: progressing Assessment/Plan family seems uncertain about level of care and issues w understanding severity of pt illness so have asked for bioethics consult to help us out in this manner and to talk to family as well to shed light to clarify the extent and aggressiveness of care they want since is uncertain at this point despite our conversation with them pna sepsis persistent persistent leukocytosis trach Subjective ROS Limited/Unobtainable: Yes Allergies: Coded Allergies: No Known Allergies (Unverified , 10/11/18) Objective Last 24 Hour Vital Signs Date Time Temp Pulse Resp B/P (MAP) Pulse Ox O2 Delivery O2 Flow Rate FiO2 10/23/18 10:23 98.8 10/23/18 09:00 Trach Collar 8.0 Trach Collar 8.0 10/23/18 09:00 96 100/66 10/23/18 08:10 92 20 97 T-piece 8.0 30 10/23/18 08:00 6.0 30 10/23/18 08:00 100.3 96 20 100/66 (77) 97 10/23/18 07:59 99 18 99 T-piece 8.0 30 10/23/18 07:59 T-piece 8.0 30 10/23/18 07:59 99 T-piece 8.0 30 10/23/18 04:00 98.8 91 16 95/59 (71) 96 10/23/18 04:00 6.0 30 10/23/18 04:00 93 10/23/18 01:45 98 20 99 T-piece 8.0 30 10/23/18 01:35 T-piece 8.0 30 10/23/18 01:35 100 T-piece 8.0 30 10/23/18 01:35 93 18 100 T-piece 8.0 30 10/23/18 01:34 108/69 (82) 10/23/18 00:00 99.5 100 16 71/48 (56) 100 10/23/18 00:00 92 10/22/18 21:00 Trach Collar 8.0 Trach Collar 8.0 10/22/18 20:21 95 20 99 T-piece 8.0 30 10/22/18 20:06 T-piece 6.0 28 10/22/18 20:06 93 18 95 T-piece 6.0 28 10/22/18 20:06 95 T-piece 6.0 28 10/22/18 20:00 99.2 96 20 98/66 (77) 100 10/22/18 20:00 87 10/22/18 20:00 6.0 30 10/22/18 16:00 6.0 30 10/22/18 16:00 99.0 94 99/61 (74) 10/22/18 15:54 92 10/22/18 13:28 95 20 99 T-piece 6.0 28 10/22/18 13:26 T-piece 6.0 28 10/22/18 13:26 99 T-piece 6.0 28 10/22/18 13:26 90 16 100 T-piece 6.0 28 Intake and Output 10/22/18 10/23/18 18:59 06:59 Intake Total 600 ml Output Total 1000 ml Balance 600 ml -1000 ml Tube Feeding 600 ml Output Urine Total 1000 ml Height (Feet): 5 Height (Inches): 7.00 Weight (Pounds): 147 General Appearance: lethargic, confused Respiratory/Chest: lungs clear Lula Aaron MD Oct 23, 2018 12:47
--- NOTE | 2018-10-23 18:12 | Nephrology Progress Note ---
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 Plan Plan: K and Phos IV as needed IV Pepcid continue the rest DNAR / DNI Comfort care Poor prognosis Subjective ROS Limited/Unobtainable: Yes Objective Objective Last 24 Hour Vital Signs Date Time Temp Pulse Resp B/P (MAP) Pulse Ox O2 Delivery O2 Flow Rate FiO2 10/23/18 16:00 92 10/23/18 16:00 101.2 91 20 96/55 (69) 100 10/23/18 16:00 6.0 30 10/23/18 15:12 100.2 10/23/18 13:50 101 20 99 T-piece 8.0 30 10/23/18 13:30 T-piece 8.0 30 10/23/18 13:30 98 T-piece 8.0 30 10/23/18 13:30 99 18 98 T-piece 8.0 30 10/23/18 12:00 6.0 30 10/23/18 12:00 98.8 92 18 100/61 (74) 100 10/23/18 12:00 92 10/23/18 09:00 Trach Collar 8.0 Trach Collar 8.0 10/23/18 09:00 96 100/66 10/23/18 08:10 92 20 97 T-piece 8.0 30 10/23/18 08:00 96 10/23/18 08:00 6.0 30 10/23/18 08:00 100.3 96 20 100/66 (77) 97 10/23/18 07:59 99 18 99 T-piece 8.0 30 10/23/18 07:59 T-piece 8.0 30 10/23/18 07:59 99 T-piece 8.0 30 10/23/18 04:00 98.8 91 16 95/59 (71) 96 10/23/18 04:00 6.0 30 10/23/18 04:00 93 10/23/18 01:45 98 20 99 T-piece 8.0 30 10/23/18 01:35 T-piece 8.0 30 10/23/18 01:35 100 T-piece 8.0 30 10/23/18 01:35 93 18 100 T-piece 8.0 30 10/23/18 01:34 108/69 (82) 10/23/18 00:00 99.5 100 16 71/48 (56) 100 10/23/18 00:00 92 10/22/18 21:00 Trach Collar 8.0 Trach Collar 8.0 10/22/18 20:21 95 20 99 T-piece 8.0 30 10/22/18 20:06 T-piece 6.0 28 10/22/18 20:06 93 18 95 T-piece 6.0 28 10/22/18 20:06 95 T-piece 6.0 28 10/22/18 20:00 99.2 96 20 98/66 (77) 100 10/22/18 20:00 87 10/22/18 20:00 6.0 30 Intake and Output 10/22/18 10/23/18 19:00 07:00 Intake Total 550 ml Output Total 1000 ml Balance 550 ml -1000 ml Tube Feeding 550 ml Output Urine Total 1000 ml Height (Feet): 5 Height (Inches): 7.00 Weight (Pounds): 147 General Appearance: no apparent distress Cardiovascular: tachycardia Respiratory/Chest: decreased breath sounds Abdomen: distended Objective no change Clint Piper MD Oct 23, 2018 18:12
--- NOTE | 2018-10-23 19:43 | NUR ---
NURSE NOTES: Received pt from KOLE Li. Pt comotose. Bed in lowest position. Call light within reach. pt on cooling measure d/t fever. Call light within reach. Will continue to monitor.
--- NOTE | 2018-10-23 19:45 | NUR ---
HAND-OFF: Report given to KOLE Thornton.
--- NOTE | 2018-10-23 22:43 | Cardiology Progress Note ---
Assessment/Plan Assessment/Plan 1. Septic shock,resolved, due to B/L pneumonia. 2. Dyspnea due to B/L pneumonia, 2D echo revealing + wall motion abnormalities in the septal wall, ? ischemic CM, LVEF ~45%. 3. CVA with severe debilitation, consider ASA and statins. 4. Dysphagia, s/p PEG placement. 5. VDRF, s/p tracheostomy placement. 6. Sinus tachycardia, resolved, continue metoprolol. Subjective Subjective Sinus rhythm at rate of 98. On Trach collar, FiO2 30%. Febrile. Objective Last 24 Hour Vital Signs Date Time Temp Pulse Resp B/P (MAP) Pulse Ox O2 Delivery O2 Flow Rate FiO2 10/23/18 21:03 101.2 10/23/18 21:01 98 22 98 T-piece 8.0 30 10/23/18 21:00 Trach Collar 8.0 Trach Collar 8.0 10/23/18 20:51 96 20 95 T-piece 8.0 30 10/23/18 20:51 T-piece 8.0 30 10/23/18 20:51 95 T-piece 8.0 30 10/23/18 20:00 6.0 30 10/23/18 20:00 100.9 86 17 109/62 (78) 99 10/23/18 16:00 92 10/23/18 16:00 101.2 91 20 96/55 (69) 100 10/23/18 16:00 6.0 30 10/23/18 13:50 101 20 99 T-piece 8.0 30 10/23/18 13:30 T-piece 8.0 30 10/23/18 13:30 98 T-piece 8.0 30 10/23/18 13:30 99 18 98 T-piece 8.0 30 10/23/18 12:00 6.0 30 10/23/18 12:00 98.8 92 18 100/61 (74) 100 10/23/18 12:00 92 10/23/18 09:00 Trach Collar 8.0 Trach Collar 8.0 10/23/18 09:00 96 100/66 10/23/18 08:10 92 20 97 T-piece 8.0 30 10/23/18 08:00 96 10/23/18 08:00 6.0 30 10/23/18 08:00 100.3 96 20 100/66 (77) 97 10/23/18 07:59 99 18 99 T-piece 8.0 30 10/23/18 07:59 T-piece 8.0 30 10/23/18 07:59 99 T-piece 8.0 30 10/23/18 04:00 98.8 91 16 95/59 (71) 96 10/23/18 04:00 6.0 30 10/23/18 04:00 93 10/23/18 01:45 98 20 99 T-piece 8.0 30 10/23/18 01:35 T-piece 8.0 30 10/23/18 01:35 100 T-piece 8.0 30 10/23/18 01:35 93 18 100 T-piece 8.0 30 10/23/18 01:34 108/69 (82) 10/23/18 00:00 99.5 100 16 71/48 (56) 100 10/23/18 00:00 92 Intake and Output 10/22/18 10/23/18 19:00 07:00 Intake Total 550 ml Output Total 1000 ml Balance 550 ml -1000 ml Tube Feeding 550 ml Output Urine Total 1000 ml 2D Echo: LVEF 45%, Septal wall hypokinesia, Grade I LVDD Objective HEENT: Atraumatic, bitemporal wasting, dry mucosal membranes, PERRLA NECK: cannot assess JVP, tracheostomy tube in place. HEART: Regular rate and rhythm. No murmurs, gallops or rubs. Lungs: Bibasilar crackles. ABDOMEN: Soft, NT/ND, + BS. G-tube in place. EXTREMITIES: No edema, clubbing or cyanosis. NEUROLOGIC: Nonresponsive, vegetative state. Davy Estrada MD Oct 23, 2018 22:43
--- NOTE | 2018-10-23 23:15 | NUR ---
NURSE NOTES: Pt temperature returned to normal. 99. Hypothermia blanket turned off. Will continue to monitor.
[2018-10-24] VITALS (9 sets, daily range): BP systolic 78–124; BP diastolic 47–69
[2018-10-24] MEDS: Vancomycin 1gm/D5W 275ml IVPB SCH ×4 (02:49→13:29)
[2018-10-24] MEDS: NovoLOG Insulin Flexpen SUBQ SCH ×4 (02:50→18:35)
--- NOTE | 2018-10-24 03:14 | NUR ---
NURSE NOTES: Called and left a message with Dr. Aaron regarding pts low BP, 78/50, after giving 500 cc bolus. Awaiting call back.
[2018-10-24] MEDS: Albuterol/Ipratropium 3ml neb HHN SCH ×4 (03:27→19:50)
--- NOTE | 2018-10-24 07:30 | NUR ---
NURSE NOTES: Received patient in bed. IV site is intact, patent. Castrejon is intact, draining by gravity without any complication. Rectal tube in place draining by gravity without complication. Gtube feeding tolerated as evidenced by no residual volume.Call light within reach safety measures applied
[2018-10-24 07:49] LABS: BASOPHILS % (AUTO) 0.8 % (0.0-2.0); EOSINOPHILS % (AUTO) 0.5 % (0.0-3.0); HEMATOCRIT 28.5 % (42.0-52.0); HEMOGLOBIN 9.6 G/DL (14.2-18.0); LYMPHOCYTES % (AUTO) 35.6 % (20.0-45.0); MEAN CORPUSCULAR VOLUME 97 FL (80-99); MONOCYTES % (AUTO) 8.3 % (1.0-10.0); NEUTROPHILS % (AUTO) 54.7 % (45.0-75.0); PLATELET COUNT 186 K/UL (150-450); RED BLOOD COUNT 2.93 M/UL (4.70-6.10); RED CELL DISTRIBUTION WIDTH 18.8 % (11.6-14.8); WHITE BLOOD COUNT 8.6 K/UL (4.8-10.8)
[2018-10-24 08:01] LABS: ANION GAP 4 mmol/L (5-15); BLOOD UREA NITROGEN 13 mg/dL (7-18); CALCIUM 9.3 MG/DL (8.5-10.1); CARBON DIOXIDE 33 MMOL/L (21-32); CHLORIDE 100 MMOL/L (98-107); CREATININE 0.7 MG/DL (0.55-1.30); POTASSIUM 3.7 MMOL/L (3.5-5.1); SODIUM 137 MMOL/L (136-145)
--- NOTE | 2018-10-24 08:06 | NUR ---
HAND-OFF: Report given to KOLE Vaughan.
[2018-10-24] MEDS: Metoprolol 25mg tab ORAL SCH ×2 (09:00→20:29)
[2018-10-24] MEDS: Hydrocortisone 100mg Inj IV SCH ×2 (09:20→18:33)
[2018-10-24] MEDS: Levofloxacin 750mg tab GT SCH (09:20)
[2018-10-24] MEDS: Heparin 5000 units/ml inj SUBQ SCH ×2 (09:21→20:29)
--- NOTE | 2018-10-24 10:25 | NUR ---
RADIOLOGY DEPT CHEST X-RAY DONE.-P.DYE
--- NOTE | 2018-10-24 11:33 | NUR ---
CASE MANAGEMENT:REVIEW 10/24/17 SI: SEVERE SEPSIS. PNA. UTI TRACH AND G-TUBE 98.8 78 22 96/58 96% ON 8L/TRACH COLLAR IS: LEVAQUIN GT QD IV VANCOMYCIN Q12 IV SOLUCORTEF MUCOMYST HHN TID DUONEB HHN Q6HRS RTC : TELEMETRY STATUS DCP; FROM [facility]
--- NOTE | 2018-10-24 12:03 | NUR ---
Social Service Note SW spoke with patient's dgt Blanche Sam [phone] to address patient's plan of care and treatment goals. Dgt states she has spoke with Dr. Lou and is aware of patient's condition. Dgt states patient's mother is the primary decision maker for patient but because her Indonesian is very limited dgt is the primary contact. Dgt states at [place] and [facility] mother and dgt attended both family meetings and bioethics meeting regarding patient's prognosis. Dgt states family is well aware of patient's poor condition. Patient's mother is agreeable to DNR/DNI but will not stop any additional care until a 3 month period. Dgt states she is realistic that patient will not show a significant change however since she was estranged from patient and not raised by him. Because of this she will support her grandmother's decision of a 3 month trail of care. CHRISTA informed Dr. Lou and Dr. Aaron. No bioethics meeting will be held at this time. Once medically appropriate patient will return to [facility]. Will continue to monitor and assist as needed.
--- NOTE | 2018-10-24 12:29 | Nephrology Progress Note ---
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 Plan Plan: K and Phos IV as needed IV Pepcid continue the rest DNAR / DNI Comfort care Poor prognosis Subjective ROS Limited/Unobtainable: Yes Objective Objective Last 24 Hour Vital Signs Date Time Temp Pulse Resp B/P (MAP) Pulse Ox O2 Delivery O2 Flow Rate FiO2 10/24/18 09:00 Trach Collar 8.0 Trach Collar 8.0 10/24/18 09:00 84 96/58 10/24/18 08:36 84 20 96 T-piece 8.0 30 10/24/18 08:24 88 20 94 T-piece 8.0 30 10/24/18 08:23 94 T-piece 8.0 30 10/24/18 08:23 T-piece 8.0 30 10/24/18 08:00 82 10/24/18 08:00 98.8 78 22 119/69 (86) 95 10/24/18 05:26 96/50 (65) 10/24/18 04:00 71 10/24/18 04:00 6.0 30 10/24/18 03:27 T-piece 8.0 30 10/24/18 03:27 T-piece 8.0 30 10/24/18 03:27 30 10/24/18 03:07 67 78/47 (57) 10/24/18 02:27 96 T-piece 8.0 30 10/24/18 02:27 96 T-piece 8.0 30 10/24/18 00:00 68 10/24/18 00:00 96.7 72 78/50 (59) 10/23/18 21:03 101.2 10/23/18 21:01 98 22 98 T-piece 8.0 30 10/23/18 21:00 Trach Collar 8.0 Trach Collar 8.0 10/23/18 20:51 96 20 95 T-piece 8.0 30 10/23/18 20:51 T-piece 8.0 30 10/23/18 20:51 95 T-piece 8.0 30 10/23/18 20:00 6.0 30 10/23/18 20:00 100.9 86 17 109/62 (78) 99 10/23/18 20:00 89 10/23/18 16:00 92 10/23/18 16:00 101.2 91 20 96/55 (69) 100 10/23/18 16:00 6.0 30 10/23/18 13:50 101 20 99 T-piece 8.0 30 10/23/18 13:30 T-piece 8.0 30 10/23/18 13:30 98 T-piece 8.0 30 10/23/18 13:30 99 18 98 T-piece 8.0 30 Intake and Output 10/23/18 10/24/18 18:59 06:59 Output Total 950 ml 2500 ml Balance -950 ml -2500 ml Output Urine Total 950 ml 2500 ml Laboratory Tests 10/24/18 07:25: White Blood Count 8.6, Red Blood Count 2.93L, Hemoglobin 9.6L, Hematocrit 28.5L , Mean Corpuscular Volume 97, Mean Corpuscular Hemoglobin 32.7H, Mean Corpuscular Hemoglobin Concent 33.7, Red Cell Distribution Width 18.8H, Platelet Count 186, Mean Platelet Volume 7.9, Neutrophils (%) (Auto) 54.7, Lymphocytes (%) (Auto) 35.6, Monocytes (%) (Auto) 8.3, Eosinophils (%) (Auto) 0.5, Basophils (%) (Auto) 0.8, Sodium Level 137, Potassium Level 3.7, Chloride Level 100, Carbon Dioxide Level 33H, Anion Gap 4L, Blood Urea Nitrogen 13, Creatinine 0.7, Estimat Glomerular Filtration Rate > 60, Glucose Level 110H, Calcium Level 9.3, Hepatitis A IgM Antibody [Pending], Hepatitis B Surface Antigen [Pending], Hepatitis B Core IgM Antibody [Pending], Hepatitis C Antibody [Pending], HIV (1&2) Antibody Rapid Negative Height (Feet): 5 Height (Inches): 7.00 Weight (Pounds): 147 General Appearance: no apparent distress Objective no change Clint Piper MD Oct 24, 2018 12:29
--- NOTE | 2018-10-24 13:02 | Diagnostic Imaging Report ---
Indication: Dyspnea Comparison: 10/21/2018 A single view chest radiograph was obtained. Findings: Heart size is normal. Lungs are clear. Tracheostomy is present. The bones are slightly osteopenic. IMPRESSION: No acute findings
--- NOTE | 2018-10-24 13:21 | Infectious Diseases Prog Note ---
Assessment/Plan Assessment/Plan IMPRESSION: New fever Leukocytosis resolved Bacteremia with CoANS Urinary tract infection with ESBL E. coli pneumonia, acute renal failure, resolving lactic acidosis, resolving acute on chronic respiratory failure with hypoxemia, anemia, diabetes mellitus. Anemia Diarrhea, C. 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 Hypokalemia P: Continue Vancomycin Start on Meropenem Blood culture X 2 Subjective ROS Limited/Unobtainable: Yes Constitutional: Reports: fever, other - Wvjk=883.2 Respiratory: Reports: other Allergies: Coded Allergies: No Known Allergies (Unverified , 10/11/18) Objective Vital Signs Last 24 Hour Vital Signs Date Time Temp Pulse Resp B/P (MAP) Pulse Ox O2 Delivery O2 Flow Rate FiO2 10/24/18 13:05 85 20 100 T-piece 8.0 30 10/24/18 13:05 T-piece 8.0 30 10/24/18 13:04 100 T-piece 8.0 30 10/24/18 09:00 Trach Collar 8.0 Trach Collar 8.0 10/24/18 09:00 84 96/58 10/24/18 08:36 84 20 96 T-piece 8.0 30 10/24/18 08:24 88 20 94 T-piece 8.0 30 10/24/18 08:23 94 T-piece 8.0 30 10/24/18 08:23 T-piece 8.0 30 10/24/18 08:00 82 10/24/18 08:00 98.8 78 22 119/69 (86) 95 10/24/18 05:26 96/50 (65) 10/24/18 04:00 71 10/24/18 04:00 6.0 30 10/24/18 03:27 T-piece 8.0 30 10/24/18 03:27 T-piece 8.0 30 10/24/18 03:27 30 10/24/18 03:07 67 78/47 (57) 10/24/18 02:27 96 T-piece 8.0 30 10/24/18 02:27 96 T-piece 8.0 30 10/24/18 00:00 68 10/24/18 00:00 96.7 72 78/50 (59) 10/23/18 21:03 101.2 10/23/18 21:01 98 22 98 T-piece 8.0 30 10/23/18 21:00 Trach Collar 8.0 Trach Collar 8.0 10/23/18 20:51 96 20 95 T-piece 8.0 30 10/23/18 20:51 T-piece 8.0 30 10/23/18 20:51 95 T-piece 8.0 30 10/23/18 20:00 6.0 30 10/23/18 20:00 100.9 86 17 109/62 (78) 99 10/23/18 20:00 89 10/23/18 16:00 92 10/23/18 16:00 101.2 91 20 96/55 (69) 100 10/23/18 16:00 6.0 30 10/23/18 13:50 101 20 99 T-piece 8.0 30 10/23/18 13:30 T-piece 8.0 30 10/23/18 13:30 98 T-piece 8.0 30 10/23/18 13:30 99 18 98 T-piece 8.0 30 Height (Feet): 5 Height (Inches): 7.00 Weight (Pounds): 147 HEENT: status post trach Respiratory/Chest: other - on T bar, course sounds Cardiovascular: normal rate Abdomen: soft, non tender, other - GT feeding Neurologic/Psychiatric: unresponsiveness Laboratory Tests Test 10/24/18 07:25 White Blood Count 8.6 K/UL (4.8-10.8) Red Blood Count 2.93 M/UL (4.70-6.10) L Hemoglobin 9.6 G/DL (14.2-18.0) L Hematocrit 28.5 % (42.0-52.0) L Mean Corpuscular Volume 97 FL (80-99) Mean Corpuscular Hemoglobin 32.7 PG (27.0-31.0) H Mean Corpuscular Hemoglobin Concent 33.7 G/DL (32.0-36.0) Red Cell Distribution Width 18.8 % (11.6-14.8) H Platelet Count 186 K/UL (150-450) Mean Platelet Volume 7.9 FL (6.5-10.1) Neutrophils (%) (Auto) 54.7 % (45.0-75.0) Lymphocytes (%) (Auto) 35.6 % (20.0-45.0) Monocytes (%) (Auto) 8.3 % (1.0-10.0) Eosinophils (%) (Auto) 0.5 % (0.0-3.0) Basophils (%) (Auto) 0.8 % (0.0-2.0) Sodium Level 137 MMOL/L (136-145) Potassium Level 3.7 MMOL/L (3.5-5.1) Chloride Level 100 MMOL/L (98-107) Carbon Dioxide Level 33 MMOL/L (21-32) H Anion Gap 4 mmol/L (5-15) L Blood Urea Nitrogen 13 mg/dL (7-18) Creatinine 0.7 MG/DL (0.55-1.30) Estimat Glomerular Filtration Rate > 60 mL/min (>60) Glucose Level 110 MG/DL (74-106) H Calcium Level 9.3 MG/DL (8.5-10.1) Hepatitis A IgM Antibody Pending Hepatitis B Surface Antigen Pending Hepatitis B Core IgM Antibody Pending Hepatitis C Antibody Pending HIV (1&2) Antibody Rapid Negative (NEGATIVE) Current Medications Medications (Trade) Dose Ordered Sig/Last Route PRN Reason Start Time Stop Time Status Last Admin Dose Admin Acetaminophen (Tylenol) 650 mg Q4H PRN NG for fever >100.3 10/18/18 01:30 11/17/18 01:29 10/23/18 20:33 Acetaminophen (Tylenol) 650 mg Q4H PRN RECTAL Prn Headache/Temp > 101 10/17/18 07:30 11/16/18 07:29 Acetylcysteine (Mucomyst) 100 mg TIDRT N 10/19/18 13:00 11/15/18 12:59 10/24/18 13:07 Albuterol/ Ipratropium (Albuterol/ Ipratropium) 3 ml Q6HRT N 10/19/18 13:00 10/26/18 12:59 10/24/18 13:07 Dextrose (Dextrose 50%) 25 ml Q30M PRN IV Hypoglycemia 10/19/18 10:45 11/18/18 10:44 Dextrose (Dextrose 50%) 50 ml Q30M PRN IV Hypoglycemia 10/19/18 10:45 11/18/18 10:44 Famotidine (Pepcid) 20 mg BID GT 10/19/18 09:00 11/18/18 08:59 10/24/18 09:21 Heparin Sodium (Porcine) (Heparin 5000 units/ml) 5,000 units EVERY 12 HOURS SUBQ 10/17/18 09:00 11/10/18 20:59 10/24/18 09:21 Hydrocortisone (Solu-CORTEF) 25 mg BID IV 10/19/18 09:00 11/10/18 21:59 10/24/18 09:20 Insulin Aspart (NovoLOG) EVERY 6 HOURS SUBQ 10/19/18 12:00 11/18/18 11:59 10/24/18 11:53 Levofloxacin (Levaquin) 750 mg DAILY GT 10/22/18 09:00 10/29/18 08:59 10/24/18 09:20 Metoclopramide HCl (Reglan) 10 mg Q8H PRN IVP Nausea & Vomiting 10/19/18 09:45 11/18/18 09:44 10/19/18 09:58 Metoprolol Tartrate (Lopressor) 25 mg Q12HR ORAL 10/18/18 09:00 11/17/18 08:59 10/19/18 08:34 Potassium Chloride (K-Dur) 40 meq TWICE A DAY GT 10/17/18 09:00 11/15/18 17:59 10/24/18 09:20 Vancomycin HCl (Vanco rx to dose) 1 ea DAILY PRN MISC Per rx protocol 10/19/18 11:15 11/18/18 11:14 Vancomycin HCl 1 gm/Dextrose 275 ml @ 183.708 mls/hr Q12HR@0100,1300 IVPB 10/20/18 01:00 10/25/18 23:59 10/24/18 02:49 Lucas Bravo MD Oct 24, 2018 13:21
--- NOTE | 2018-10-24 13:28 | NUR ---
NURSE NOTES: rectal temp 100.2 noted, cooling blanket turned on. family at bedside
[2018-10-24] MEDS: Meropenem 500 MG in NS 55 ML IVPB SCH (15:40)
--- NOTE | 2018-10-24 19:02 | General Progress Note ---
Assessment/Plan Assessment/Plan Assessment (1) Gastrostomy tube dependent ICD Codes: Z93.1 - Gastrostomy status SNOMED: 933945768, 871525938 (2) Anemia ICD Codes: D64.9 - Anemia, unspecified SNOMED: 032092942 (3) Iron deficiency ICD Codes: E61.1 - Iron deficiency SNOMED: 37114890 (4) Dehydration ICD Codes: E86.0 - Dehydration SNOMED: 02506342 (5) Feeding by G-tube ICD Codes: Z93.1 - Gastrostomy status SNOMED: 280068793, 933940546, 943087347 Assessment/Plan Anemia workup reviewed. Iron deficiency. OB stool negative. G-tube dependent Rectal tube present Cdiff negative G-tube feeding per RD to goal Reglan for GI motility if needed, reported high residuals monitor H&H, as needed transfusions Antibiotics venofer No plans for GI procedures unless urgent Subjective Allergies: Coded Allergies: No Known Allergies (Unverified , 10/11/18) Subjective Above noted no new events tolerating TF Objective Last 24 Hour Vital Signs Date Time Temp Pulse Resp B/P (MAP) Pulse Ox O2 Delivery O2 Flow Rate FiO2 10/24/18 16:00 6.0 30 10/24/18 16:00 65 10/24/18 16:00 97.0 72 20 124/69 (87) 96 10/24/18 14:50 97.5 10/24/18 13:37 100.2 10/24/18 13:31 74 20 97 T-piece 8.0 30 10/24/18 13:05 85 20 100 T-piece 8.0 30 10/24/18 13:05 T-piece 8.0 30 10/24/18 13:04 100 T-piece 8.0 30 10/24/18 12:00 98.8 71 22 124/48 (73) 95 10/24/18 12:00 84 10/24/18 12:00 6.0 30 10/24/18 09:00 Trach Collar 8.0 Trach Collar 8.0 10/24/18 09:00 84 96/58 10/24/18 08:36 84 20 96 T-piece 8.0 30 10/24/18 08:24 88 20 94 T-piece 8.0 30 10/24/18 08:23 94 T-piece 8.0 30 10/24/18 08:23 T-piece 8.0 30 10/24/18 08:00 82 10/24/18 08:00 6.0 30 10/24/18 08:00 98.8 78 22 119/69 (86) 95 10/24/18 05:26 96/50 (65) 10/24/18 04:00 71 10/24/18 04:00 6.0 30 10/24/18 03:27 T-piece 8.0 30 10/24/18 03:27 T-piece 8.0 30 10/24/18 03:27 30 10/24/18 03:07 67 78/47 (57) 10/24/18 02:27 96 T-piece 8.0 30 10/24/18 02:27 96 T-piece 8.0 30 10/24/18 00:00 68 10/24/18 00:00 96.7 72 78/50 (59) 10/23/18 21:03 101.2 10/23/18 21:01 98 22 98 T-piece 8.0 30 10/23/18 21:00 Trach Collar 8.0 Trach Collar 8.0 10/23/18 20:51 96 20 95 T-piece 8.0 30 10/23/18 20:51 T-piece 8.0 30 10/23/18 20:51 95 T-piece 8.0 30 10/23/18 20:00 6.0 30 10/23/18 20:00 100.9 86 17 109/62 (78) 99 10/23/18 20:00 89 Intake and Output 10/23/18 10/24/18 18:59 06:59 Output Total 950 ml 2500 ml Balance -950 ml -2500 ml Output Urine Total 950 ml 2500 ml Laboratory Tests 10/24/18 07:25: White Blood Count 8.6, Red Blood Count 2.93L, Hemoglobin 9.6L, Hematocrit 28.5L , Mean Corpuscular Volume 97, Mean Corpuscular Hemoglobin 32.7H, Mean Corpuscular Hemoglobin Concent 33.7, Red Cell Distribution Width 18.8H, Platelet Count 186, Mean Platelet Volume 7.9, Neutrophils (%) (Auto) 54.7, Lymphocytes (%) (Auto) 35.6, Monocytes (%) (Auto) 8.3, Eosinophils (%) (Auto) 0.5, Basophils (%) (Auto) 0.8, Sodium Level 137, Potassium Level 3.7, Chloride Level 100, Carbon Dioxide Level 33H, Anion Gap 4L, Blood Urea Nitrogen 13, Creatinine 0.7, Estimat Glomerular Filtration Rate > 60, Glucose Level 110H, Calcium Level 9.3, Hepatitis A IgM Antibody [Pending], Hepatitis B Surface Antigen [Pending], Hepatitis B Core IgM Antibody [Pending], Hepatitis C Antibody [Pending], HIV (1&2) Antibody Rapid Negative Height (Feet): 5 Height (Inches): 7.00 Weight (Pounds): 147 Objective Debilitated man NCAT supple, (+) Trach CTA RR abd soft ND NT (+) GT no edema Disha Gallardo MD Oct 24, 2018 19:02
--- NOTE | 2018-10-24 19:15 | NUR ---
NURSE NOTES: Residual volume for GTF was 40ml. Rectal Temp was 97.7F
--- NOTE | 2018-10-24 19:26 | NUR ---
HAND-OFF: Report given to Hillary Horne RN.
--- NOTE | 2018-10-24 19:42 | NUR ---
NURSE NOTES: Received pt from [facility]. Pt comatose. Bed in lowest position. Call light within reach. Will continue to monitor.
--- NOTE | 2018-10-24 20:30 | NUR ---
NURSE NOTES: Pt is hypotensive. Stopped gtube feeding and elevated feet. Will retake BP in 30 mins. Will continue to monitor.
--- NOTE | 2018-10-24 21:22 | General Progress Note ---
Assessment/Plan Problem List: (1) Cerebral infarction ICD Codes: I63.9 - Cerebral infarction, unspecified SNOMED: 347398091 (2) Renal failure ICD Codes: N19 - Unspecified kidney failure SNOMED: 01147715 Qualifiers: Qualified Codes: N17.9 - Acute kidney failure, unspecified (3) Encephalopathy ICD Codes: G93.40 - Encephalopathy, unspecified SNOMED: 72245594 (4) Lactic acid acidosis ICD Codes: E87.2 - Acidosis SNOMED: 58525235 (5) Tracheostomy care ICD Codes: Z43.0 - Encounter for attention to tracheostomy SNOMED: 932712150 (6) LUZ MARIA (acute kidney injury) ICD Codes: N17.9 - Acute kidney failure, unspecified SNOMED: 07964724 (7) DNAR (do not attempt resuscitation) ICD Codes: Z66 - Do not resuscitate SNOMED: 368644455 (8) Dehydration ICD Codes: E86.0 - Dehydration SNOMED: 32125220 (9) Iron deficiency ICD Codes: E61.1 - Iron deficiency SNOMED: 22468180 Status: unchanged Assessment/Plan bioethics consult was ordered by me will follow dpoa wishes abx per id pna is present sepsis persistent persistent leukocytosis trach Subjective ROS Limited/Unobtainable: Yes Allergies: Coded Allergies: No Known Allergies (Unverified , 10/11/18) Objective Last 24 Hour Vital Signs Date Time Temp Pulse Resp B/P (MAP) Pulse Ox O2 Delivery O2 Flow Rate FiO2 10/24/18 21:00 Trach Collar 8.0 Trach Collar 8.0 10/24/18 20:00 6.0 30 10/24/18 20:00 92 20 100 T-piece 8.0 30 10/24/18 20:00 98.2 83 20 82/51 (61) 98 10/24/18 19:51 100 T-piece 8.0 30 10/24/18 19:51 T-piece 8.0 30 10/24/18 19:51 97 20 100 T-piece 8.0 30 10/24/18 16:00 6.0 30 10/24/18 16:00 65 10/24/18 16:00 97.0 72 20 124/69 (87) 96 10/24/18 14:50 97.5 10/24/18 13:37 100.2 10/24/18 13:31 74 20 97 T-piece 8.0 30 10/24/18 13:05 85 20 100 T-piece 8.0 30 10/24/18 13:05 T-piece 8.0 30 10/24/18 13:04 100 T-piece 8.0 30 10/24/18 12:00 98.8 71 22 124/48 (73) 95 10/24/18 12:00 84 10/24/18 12:00 6.0 30 10/24/18 09:00 Trach Collar 8.0 Trach Collar 8.0 10/24/18 09:00 84 96/58 10/24/18 08:36 84 20 96 T-piece 8.0 30 10/24/18 08:24 88 20 94 T-piece 8.0 30 10/24/18 08:23 94 T-piece 8.0 30 10/24/18 08:23 T-piece 8.0 30 10/24/18 08:00 82 10/24/18 08:00 6.0 30 10/24/18 08:00 98.8 78 22 119/69 (86) 95 10/24/18 05:26 96/50 (65) 10/24/18 04:00 71 10/24/18 04:00 6.0 30 10/24/18 03:27 T-piece 8.0 30 10/24/18 03:27 T-piece 8.0 30 10/24/18 03:27 30 10/24/18 03:07 67 78/47 (57) 10/24/18 02:27 96 T-piece 8.0 30 10/24/18 02:27 96 T-piece 8.0 30 10/24/18 00:00 68 10/24/18 00:00 96.7 72 78/50 (59) Intake and Output 10/23/18 10/24/18 19:00 07:00 Output Total 950 ml 2500 ml Balance -950 ml -2500 ml Output Urine Total 950 ml 2500 ml Laboratory Tests 10/24/18 07:25: White Blood Count 8.6, Red Blood Count 2.93L, Hemoglobin 9.6L, Hematocrit 28.5L , Mean Corpuscular Volume 97, Mean Corpuscular Hemoglobin 32.7H, Mean Corpuscular Hemoglobin Concent 33.7, Red Cell Distribution Width 18.8H, Platelet Count 186, Mean Platelet Volume 7.9, Neutrophils (%) (Auto) 54.7, Lymphocytes (%) (Auto) 35.6, Monocytes (%) (Auto) 8.3, Eosinophils (%) (Auto) 0.5, Basophils (%) (Auto) 0.8, Sodium Level 137, Potassium Level 3.7, Chloride Level 100, Carbon Dioxide Level 33H, Anion Gap 4L, Blood Urea Nitrogen 13, Creatinine 0.7, Estimat Glomerular Filtration Rate > 60, Glucose Level 110H, Calcium Level 9.3, Hepatitis A IgM Antibody [Pending], Hepatitis B Surface Antigen [Pending], Hepatitis B Core IgM Antibody [Pending], Hepatitis C Antibody [Pending], HIV (1&2) Antibody Rapid Negative Height (Feet): 5 Height (Inches): 7.00 Weight (Pounds): 147 Neck: supple Respiratory/Chest: lungs clear Lula Aaron MD Oct 24, 2018 21:22
--- NOTE | 2018-10-24 22:26 | NUR ---
NURSE NOTES: Feeding resumed. Pt now in high fowlers. BP stable. Will continue to monitor.
--- NOTE | 2018-10-24 23:03 | Pulmonology Progress Note ---
Assessment/Plan Problems: (1) Cerebral infarction (2) Encephalopathy (3) Severe sepsis (4) Lactic acid acidosis (5) Tracheostomy care (6) Feeding by G-tube (7) DNAR (do not attempt resuscitation) Assessment/Plan D/W daughter Blanche Vargas, ethics and Dr. Ibarra, DNAR/DNI but continue other treatment measures for now. If unimproved in 3 months from now family will consider transitioning to LABORATORY AIDE -ABX per ID, F/U repeat CX's -Monitor fever curve -Optimize pulmonary hygiene/mobilize as tolerated -Continue TC -Titrate O2 -HHN's and NAC -TF's as tolerated -Continue HC 25 BID and taper -Monitor volumes and renal function, PRN bolus -DNAR -Dispo planning once acute issues resolve: would only transfer to SNF if being D /C'd on hospice. Otherwise, needs to be on IV Abx and still not hemodynamically stable. Subjective Allergies: Coded Allergies: No Known Allergies (Unverified , 10/11/18) Subjective Tm 101.2 BP borderline WCt better rolly TF's no distress D/W bioethics and daughter Objective Last 24 Hour Vital Signs Date Time Temp Pulse Resp B/P (MAP) Pulse Ox O2 Delivery O2 Flow Rate FiO2 10/24/18 22:25 79 104/61 (75) 91 10/24/18 21:00 Trach Collar 8.0 Trach Collar 8.0 10/24/18 20:00 6.0 30 10/24/18 20:00 92 20 100 T-piece 8.0 30 10/24/18 20:00 98.2 83 20 82/51 (61) 98 10/24/18 19:51 100 T-piece 8.0 30 10/24/18 19:51 T-piece 8.0 30 10/24/18 19:51 97 20 100 T-piece 8.0 30 10/24/18 16:00 6.0 30 10/24/18 16:00 65 10/24/18 16:00 97.0 72 20 124/69 (87) 96 10/24/18 14:50 97.5 10/24/18 13:37 100.2 10/24/18 13:31 74 20 97 T-piece 8.0 30 10/24/18 13:05 85 20 100 T-piece 8.0 30 10/24/18 13:05 T-piece 8.0 30 10/24/18 13:04 100 T-piece 8.0 30 10/24/18 12:00 98.8 71 22 124/48 (73) 95 10/24/18 12:00 84 10/24/18 12:00 6.0 30 10/24/18 09:00 Trach Collar 8.0 Trach Collar 8.0 10/24/18 09:00 84 96/58 10/24/18 08:36 84 20 96 T-piece 8.0 30 10/24/18 08:24 88 20 94 T-piece 8.0 30 10/24/18 08:23 94 T-piece 8.0 30 10/24/18 08:23 T-piece 8.0 30 10/24/18 08:00 82 10/24/18 08:00 6.0 30 10/24/18 08:00 98.8 78 22 119/69 (86) 95 10/24/18 05:26 96/50 (65) 10/24/18 04:00 71 10/24/18 04:00 6.0 30 10/24/18 03:27 T-piece 8.0 30 10/24/18 03:27 T-piece 8.0 30 10/24/18 03:27 30 10/24/18 03:07 67 78/47 (57) 10/24/18 02:27 96 T-piece 8.0 30 10/24/18 02:27 96 T-piece 8.0 30 10/24/18 00:00 68 10/24/18 00:00 96.7 72 78/50 (59) Intake and Output 10/23/18 10/24/18 19:00 07:00 Output Total 950 ml 2500 ml Balance -950 ml -2500 ml Output Urine Total 950 ml 2500 ml General Appearance: no acute distress, cachetic, other - non-verbal HEENT: normocephalic, atraumatic, anicteric, mucous membranes moist, status post trach Respiratory/Chest: chest wall non-tender, lungs clear, normal breath sounds, no respiratory distress, no accessory muscle use Cardiovascular: normal peripheral pulses, normal rate, regular rhythm Abdomen: normal bowel sounds, soft, non tender, no organomegaly, non distended , no mass, other - GT Extremities: no cyanosis, no clubbing, no edema Laboratory Tests 10/24/18 07:25: White Blood Count 8.6, Red Blood Count 2.93L, Hemoglobin 9.6L, Hematocrit 28.5L , Mean Corpuscular Volume 97, Mean Corpuscular Hemoglobin 32.7H, Mean Corpuscular Hemoglobin Concent 33.7, Red Cell Distribution Width 18.8H, Platelet Count 186, Mean Platelet Volume 7.9, Neutrophils (%) (Auto) 54.7, Lymphocytes (%) (Auto) 35.6, Monocytes (%) (Auto) 8.3, Eosinophils (%) (Auto) 0.5, Basophils (%) (Auto) 0.8, Sodium Level 137, Potassium Level 3.7, Chloride Level 100, Carbon Dioxide Level 33H, Anion Gap 4L, Blood Urea Nitrogen 13, Creatinine 0.7, Estimat Glomerular Filtration Rate > 60, Glucose Level 110H, Calcium Level 9.3, Hepatitis A IgM Antibody [Pending], Hepatitis B Surface Antigen [Pending], Hepatitis B Core IgM Antibody [Pending], Hepatitis C Antibody [Pending], HIV (1&2) Antibody Rapid Negative Current Medications Medications (Trade) Dose Ordered Sig/Last Route PRN Reason Start Time Stop Time Status Last Admin Dose Admin Acetaminophen (Tylenol) 650 mg Q4H PRN NG for fever >100.3 10/18/18 01:30 11/17/18 01:29 10/23/18 20:33 Acetaminophen (Tylenol) 650 mg Q4H PRN RECTAL Prn Headache/Temp > 101 10/17/18 07:30 11/16/18 07:29 Acetylcysteine (Mucomyst) 100 mg TIDRT N 10/19/18 13:00 11/15/18 12:59 10/24/18 19:50 Albuterol/ Ipratropium (Albuterol/ Ipratropium) 3 ml Q6HRT N 10/19/18 13:00 10/26/18 12:59 10/24/18 19:50 Dextrose (Dextrose 50%) 25 ml Q30M PRN IV Hypoglycemia 10/19/18 10:45 11/18/18 10:44 Dextrose (Dextrose 50%) 50 ml Q30M PRN IV Hypoglycemia 10/19/18 10:45 11/18/18 10:44 Famotidine (Pepcid) 20 mg BID GT 10/19/18 09:00 11/18/18 08:59 10/24/18 18:33 Heparin Sodium (Porcine) (Heparin 5000 units/ml) 5,000 units EVERY 12 HOURS SUBQ 10/17/18 09:00 11/10/18 20:59 10/24/18 20:29 Hydrocortisone (Solu-CORTEF) 25 mg BID IV 10/19/18 09:00 11/10/18 21:59 10/24/18 18:33 Insulin Aspart (NovoLOG) EVERY 6 HOURS SUBQ 10/19/18 12:00 11/18/18 11:59 10/24/18 18:35 Levofloxacin (Levaquin) 750 mg DAILY GT 10/22/18 09:00 10/29/18 08:59 10/24/18 09:20 Meropenem 500 mg/ Sodium Chloride 55 ml @ 110 mls/hr Q8H IVPB 10/24/18 15:00 10/29/18 14:59 10/24/18 15:40 Metoclopramide HCl (Reglan) 10 mg Q8H PRN IVP Nausea & Vomiting 10/19/18 09:45 11/18/18 09:44 10/19/18 09:58 Metoprolol Tartrate (Lopressor) 25 mg Q12HR ORAL 10/18/18 09:00 11/17/18 08:59 10/19/18 08:34 Potassium Chloride (K-Dur) 40 meq TWICE A DAY GT 10/17/18 09:00 11/15/18 17:59 10/24/18 18:33 Vancomycin HCl (Vanco rx to dose) 1 ea DAILY PRN MISC Per rx protocol 10/19/18 11:15 11/18/18 11:14 Vancomycin HCl 1 gm/Dextrose 275 ml @ 183.708 mls/hr Q12HR@0100,1300 IVPB 10/20/18 01:00 10/25/18 23:59 10/24/18 13:29 Jordy Lou MD Oct 24, 2018 23:03
[2018-10-25] VITALS: BP 111/71
[2018-10-25] MEDS: Meropenem 500 MG in NS 55 ML IVPB SCH ×4 (00:10→23:25)
[2018-10-25] MEDS: NovoLOG Insulin Flexpen SUBQ SCH ×4 (00:11→17:44)
[2018-10-25] MEDS: Albuterol/Ipratropium 3ml neb HHN SCH ×5 (00:52→19:37)
[2018-10-25] MEDS: Vancomycin 1gm/D5W 275ml IVPB SCH ×4 (01:13→13:42)
[2018-10-25 04:00] VITALS: BP 91/56
--- NOTE | 2018-10-25 07:25 | NUR ---
HAND-OFF: Report given to KOLE Vaughan. Pt stable.
[2018-10-25 08:00] VITALS: BP 93/57
[2018-10-25] MEDS: Hydrocortisone 100mg Inj IV SCH ×2 (08:41→17:40)
[2018-10-25] MEDS: Heparin 5000 units/ml inj SUBQ SCH ×2 (08:41→20:23)
[2018-10-25] MEDS: Levofloxacin 750mg tab GT SCH (08:41)
[2018-10-25] MEDS: Metoprolol 25mg tab ORAL SCH ×2 (08:42→20:23)
--- NOTE | 2018-10-25 10:38 | Infectious Diseases Prog Note ---
Assessment/Plan Assessment/Plan IMPRESSION: New fever Leukocytosis resolved Bacteremia with CoANS Urinary tract infection with ESBL E. coli pneumonia, acute renal failure, resolving lactic acidosis, resolving acute on chronic respiratory failure with hypoxemia, anemia, diabetes mellitus. Anemia Diarrhea, C. 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 Hypokalemia P: Continue Vancomycin & Meropenem Wll f/u cultures Subjective ROS Limited/Unobtainable: Yes Constitutional: Reports: other - no fever today Gastrointestinal/Abdominal: Reports: diarrhea Allergies: Coded Allergies: No Known Allergies (Unverified , 10/11/18) Objective Vital Signs Last 24 Hour Vital Signs Date Time Temp Pulse Resp B/P (MAP) Pulse Ox O2 Delivery O2 Flow Rate FiO2 10/25/18 09:34 Trach Collar 6.0 Trach Collar 6.0 10/25/18 08:42 76 93/57 10/25/18 08:27 62 20 99 T-piece 8.0 30 10/25/18 08:18 T-piece 8.0 30 10/25/18 08:18 57 20 98 T-piece 8.0 30 10/25/18 08:18 98 T-piece 8.0 30 10/25/18 08:00 76 10/25/18 08:00 96.2 80 18 93/57 (69) 97 10/25/18 08:00 6.0 30 10/25/18 04:00 62 10/25/18 04:00 6.0 30 10/25/18 04:00 96.2 73 20 91/56 (68) 99 10/25/18 01:02 89 20 100 T-piece 8.0 30 10/25/18 00:53 99 T-piece 8.0 30 10/25/18 00:52 91 20 99 T-piece 8.0 30 10/25/18 00:52 T-piece 8.0 30 10/25/18 00:00 99.8 104 20 111/71 (84) 94 10/25/18 00:00 97 10/24/18 22:25 79 104/61 (75) 91 10/24/18 21:00 Trach Collar 8.0 Trach Collar 8.0 10/24/18 20:00 6.0 30 10/24/18 20:00 92 20 100 T-piece 8.0 30 10/24/18 20:00 98.2 83 20 82/51 (61) 98 10/24/18 19:51 100 T-piece 8.0 30 10/24/18 19:51 T-piece 8.0 30 10/24/18 19:51 97 20 100 T-piece 8.0 30 10/24/18 16:00 6.0 30 10/24/18 16:00 65 10/24/18 16:00 97.0 72 20 124/69 (87) 96 10/24/18 14:50 97.5 10/24/18 13:37 100.2 10/24/18 13:31 74 20 97 T-piece 8.0 30 10/24/18 13:05 85 20 100 T-piece 8.0 30 10/24/18 13:05 T-piece 8.0 30 10/24/18 13:04 100 T-piece 8.0 30 10/24/18 12:00 98.8 71 22 124/48 (73) 95 10/24/18 12:00 84 10/24/18 12:00 6.0 30 Height (Feet): 5 Height (Inches): 7.00 Weight (Pounds): 150 General Appearance: no acute distress HEENT: status post trach Respiratory/Chest: lungs clear, other - on T bar Cardiovascular: normal rate Abdomen: soft, non tender, other - GT & rectal tube Extremities: no edema Neurologic/Psychiatric: aphasia Musculoskeletal: atrophy Current Medications Medications (Trade) Dose Ordered Sig/Last Route PRN Reason Start Time Stop Time Status Last Admin Dose Admin Acetaminophen (Tylenol) 650 mg Q4H PRN NG for fever >100.3 10/18/18 01:30 11/17/18 01:29 10/23/18 20:33 Acetaminophen (Tylenol) 650 mg Q4H PRN RECTAL Prn Headache/Temp > 101 10/17/18 07:30 11/16/18 07:29 Acetylcysteine (Mucomyst) 100 mg TIDRT N 10/19/18 13:00 11/15/18 12:59 10/25/18 08:17 Albuterol/ Ipratropium (Albuterol/ Ipratropium) 3 ml Q6HRT N 10/19/18 13:00 10/26/18 12:59 10/25/18 08:16 Dextrose (Dextrose 50%) 25 ml Q30M PRN IV Hypoglycemia 10/19/18 10:45 11/18/18 10:44 Dextrose (Dextrose 50%) 50 ml Q30M PRN IV Hypoglycemia 10/19/18 10:45 11/18/18 10:44 Famotidine (Pepcid) 20 mg BID GT 10/19/18 09:00 11/18/18 08:59 10/25/18 08:40 Heparin Sodium (Porcine) (Heparin 5000 units/ml) 5,000 units EVERY 12 HOURS SUBQ 10/17/18 09:00 11/10/18 20:59 10/25/18 08:41 Hydrocortisone (Solu-CORTEF) 25 mg BID IV 10/19/18 09:00 11/10/18 21:59 10/25/18 08:41 Insulin Aspart (NovoLOG) EVERY 6 HOURS SUBQ 10/19/18 12:00 11/18/18 11:59 10/25/18 05:31 Levofloxacin (Levaquin) 750 mg DAILY GT 10/22/18 09:00 10/29/18 08:59 10/25/18 08:41 Meropenem 500 mg/ Sodium Chloride 55 ml @ 110 mls/hr Q8H IVPB 10/24/18 15:00 10/29/18 14:59 10/25/18 07:58 Metoclopramide HCl (Reglan) 10 mg Q8H PRN IVP Nausea & Vomiting 10/19/18 09:45 11/18/18 09:44 10/19/18 09:58 Metoprolol Tartrate (Lopressor) 25 mg Q12HR ORAL 10/18/18 09:00 11/17/18 08:59 10/19/18 08:34 Potassium Chloride (K-Dur) 40 meq TWICE A DAY GT 10/17/18 09:00 11/15/18 17:59 10/25/18 08:41 Vancomycin HCl (Vanco rx to dose) 1 ea DAILY PRN MISC Per rx protocol 10/19/18 11:15 11/18/18 11:14 Vancomycin HCl 1 gm/Dextrose 275 ml @ 183.708 mls/hr Q12HR@0100,1300 IVPB 10/20/18 01:00 10/25/18 23:59 10/25/18 01:13 Lucas Bravo MD Oct 25, 2018 10:38
--- NOTE | 2018-10-25 10:45 | NUR ---
CASE MANAGEMENT:REVIEW 10/25/17 SI: SEVERE SEPSIS. PNA. UTI TRACH AND G-TUBE 96.2 80 18 93/57 99% ON 6L/TRACH COLLAR IS: IV MEROPENEM Q8HRS LEVAQUIN GT QD IV VANCOMYCIN Q12 IV SOLUCORTEF MUCOMYST HHN TID DUONEB HHN Q6HRS RTC : TELEMETRY STATUS DCP; FROM [facility] PLAN: BIOETHICS
--- NOTE | 2018-10-25 11:59 | NUR ---
RD ASSESSMENT & RECOMMENDATIONS SEE CARE ACTIVITY FOR COMPLETE ASSESSMENT DAILY ESTIMATED NEEDS: Needs based on Critical care, wound 57.7kg 22-30 kcals/kg 1130-2102 total kcals 1.25-2 g protein/kg 72-115 g total protein 25-30 mL/kg 0111-4744 total fluid mLs NUTRITION DIAGNOSIS: 1) Swallowing difficulty r/t respiratory status as evidenced by pt is vent dep via trach, PEG dep for all nutritional needs 2) Increased kcal and protein needs r/t wound healing and underweight status as evidenced by pt w/ stage 2 sacral wound, pt is 86% [place] Body Weight w/ generalized mild to moderate wasting. 3) Altered nutrition related lab values R/T diabetes, on steroidal med, clinical condition as evidenced by elev POC glu ([phone] 154), pt on solucortef, A1C of 9.1, low phos (2.0-> now wnl), tmax 100.2-> now hypothermic. CURRENT TF:Vital AF 1.2 @50ml/hr x24 hrs ENTERAL NUTRITION RECOMMENDATIONS: VITAL AF 1.2 @50ml/hr x24 hrs to provide 1200ml, 1440 kcal (25kcal/kg), 90g prot (1.55g/kg), 973ml free H2O - Maintain current TF as tolerated. - Flush per MD. HOB over 30 degrees ADDITIONAL RECOMMENDATIONS: 1) RE-calibrate bed scale w/ added P200 mattress + pump 2) Consider long acting insulin for improved BG control 3) Wound care: add JANUARY BID 4) Monitor lytes, replete as needed 5) Monitor residuals, TF tolerance . .
[2018-10-25 12:00] VITALS: BP 102/68
--- NOTE | 2018-10-25 13:33 | Surgery Progress Note ---
Surgery Progress Note Subjective Additional Comments leukocytosis resolved. afebrile currently. exam unchanged. Objective Last 24 Hour Vital Signs Date Time Temp Pulse Resp B/P (MAP) Pulse Ox O2 Delivery O2 Flow Rate FiO2 10/25/18 13:25 98 T-piece 8.0 30 10/25/18 13:25 T-piece 8.0 30 10/25/18 13:25 91 20 98 T-piece 8.0 30 10/25/18 09:34 Trach Collar 6.0 Trach Collar 6.0 10/25/18 08:42 76 93/57 10/25/18 08:27 62 20 99 T-piece 8.0 30 10/25/18 08:18 T-piece 8.0 30 10/25/18 08:18 57 20 98 T-piece 8.0 30 10/25/18 08:18 98 T-piece 8.0 30 10/25/18 08:00 76 10/25/18 08:00 96.2 80 18 93/57 (69) 97 10/25/18 08:00 6.0 30 10/25/18 04:00 62 10/25/18 04:00 6.0 30 10/25/18 04:00 96.2 73 20 91/56 (68) 99 10/25/18 01:02 89 20 100 T-piece 8.0 30 10/25/18 00:53 99 T-piece 8.0 30 10/25/18 00:52 91 20 99 T-piece 8.0 30 10/25/18 00:52 T-piece 8.0 30 10/25/18 00:00 99.8 104 20 111/71 (84) 94 10/25/18 00:00 97 10/24/18 22:25 79 104/61 (75) 91 10/24/18 21:00 Trach Collar 8.0 Trach Collar 8.0 10/24/18 20:00 6.0 30 10/24/18 20:00 92 20 100 T-piece 8.0 30 10/24/18 20:00 98.2 83 20 82/51 (61) 98 10/24/18 19:51 100 T-piece 8.0 30 10/24/18 19:51 T-piece 8.0 30 10/24/18 19:51 97 20 100 T-piece 8.0 30 10/24/18 16:00 6.0 30 10/24/18 16:00 65 10/24/18 16:00 97.0 72 20 124/69 (87) 96 10/24/18 14:50 97.5 10/24/18 13:37 100.2 I&O Intake and Output 10/24/18 10/25/18 19:00 07:00 Intake Total 140 ml Output Total 2800 ml 720 ml Balance -2660 ml -720 ml Intake Free Water 40 ml Tube Feeding 50 ml Other 50 ml Output Urine Total 2500 ml 720 ml Stool Total 300 ml Dressing: other Wound: other Drains: other Cardiovascular: RSR Respiratory: decreased breath sounds Abdomen: soft, present bowel sounds, non-distended Extremities: other Plan Problems: (1) Severe sepsis Assessment & Plan: leukocytosis resolved on IV Abx labs noted uop okay rx as written dvt ppx (2) Multiple wounds Assessment & Plan: Pt presents with partial thickness pressure injuries to R and L gluteal clefts and an area at sacrococcygeal that is dark and indurated. Wounds present on admission. L buttocks partial thickness wound moist and viable .Edges adherent and flat .Non-blanchable erythema periwound. (L)3.9cm x (W)3.5cm. R gluteal cleft partial thickness pressure injury.Wound bed moist and viable.edges adhrent and flat .Non-blanchable erythema periwound (L)0.4cm x (W) 0.5cm. Bilat heels boggy but blanchable. Non-blanchable erythema noted to lateral R heel. Pt's wounds resolving. Partial thickness pressure injuries to r and L buttocks pink -epithelialized and dry.Area of induration at sacrococcygeal previously noted has resolved.Brownish discoloration without induration or fluctuance noted at sacrococcygeal area. Bilat heels pink and easily blanchable. Bilat malleoli are pink and blanchable .No new skin concerns noted. Pt has an APM / CLINT mattress overlay. Observed positioned with pillows and with both heels off- loaded. Tx.Plan: Apply Moisture Barrier Paste to R and L buttocks .Cover with Optifoam drsg .Change daily and prn. Apply Cavilon Skin Barrier to R and L heels and Malleoli.Cover each site with Optifoam drsgs .Change every 7 days and PRN. APM/CLINT mattress. Reposition at least every 2hours or as tolerated. Off-load heels with pillow. Monroe Reynaga Oct 25, 2018 13:32
[2018-10-25 16:00] VITALS: BP 108/59
--- NOTE | 2018-10-25 16:51 | General Progress Note ---
Assessment/Plan Problem List: (1) Cerebral infarction ICD Codes: I63.9 - Cerebral infarction, unspecified SNOMED: 170190283 (2) Renal failure ICD Codes: N19 - Unspecified kidney failure SNOMED: 44077211 Qualifiers: Qualified Codes: N17.9 - Acute kidney failure, unspecified (3) Encephalopathy ICD Codes: G93.40 - Encephalopathy, unspecified SNOMED: 54102689 (4) Lactic acid acidosis ICD Codes: E87.2 - Acidosis SNOMED: 46882313 (5) Tracheostomy care ICD Codes: Z43.0 - Encounter for attention to tracheostomy SNOMED: 807612122 (6) LUZ MARIA (acute kidney injury) ICD Codes: N17.9 - Acute kidney failure, unspecified SNOMED: 63807341 (7) DNAR (do not attempt resuscitation) ICD Codes: Z66 - Do not resuscitate SNOMED: 728486282 (8) Dehydration ICD Codes: E86.0 - Dehydration SNOMED: 59056158 (9) Iron deficiency ICD Codes: E61.1 - Iron deficiency SNOMED: 40913160 Status: progressing Assessment/Plan pna is present sepsis persistent persistent leukocytosis trach poor prognosis acidosis encephalopathy azotemia Subjective ROS Limited/Unobtainable: Yes Allergies: Coded Allergies: No Known Allergies (Unverified , 10/11/18) Objective Last 24 Hour Vital Signs Date Time Temp Pulse Resp B/P (MAP) Pulse Ox O2 Delivery O2 Flow Rate FiO2 10/25/18 16:00 6.0 30 10/25/18 16:00 98.5 65 20 108/59 (75) 95 10/25/18 13:35 89 20 99 T-piece 8.0 30 10/25/18 13:25 98 T-piece 8.0 30 10/25/18 13:25 T-piece 8.0 30 10/25/18 13:25 91 20 98 T-piece 8.0 30 10/25/18 12:00 89 10/25/18 12:00 97.7 82 20 102/68 (79) 97 10/25/18 12:00 6.0 30 10/25/18 09:34 Trach Collar 6.0 Trach Collar 6.0 10/25/18 08:42 76 93/57 10/25/18 08:27 62 20 99 T-piece 8.0 30 10/25/18 08:18 T-piece 8.0 30 10/25/18 08:18 57 20 98 T-piece 8.0 30 10/25/18 08:18 98 T-piece 8.0 30 10/25/18 08:00 76 10/25/18 08:00 96.2 80 18 93/57 (69) 97 10/25/18 08:00 6.0 30 10/25/18 04:00 62 10/25/18 04:00 6.0 30 10/25/18 04:00 96.2 73 20 91/56 (68) 99 10/25/18 01:02 89 20 100 T-piece 8.0 30 10/25/18 00:53 99 T-piece 8.0 30 10/25/18 00:52 91 20 99 T-piece 8.0 30 10/25/18 00:52 T-piece 8.0 30 10/25/18 00:00 99.8 104 20 111/71 (84) 94 10/25/18 00:00 97 10/24/18 22:25 79 104/61 (75) 91 10/24/18 21:00 Trach Collar 8.0 Trach Collar 8.0 10/24/18 20:00 6.0 30 10/24/18 20:00 92 20 100 T-piece 8.0 30 10/24/18 20:00 98.2 83 20 82/51 (61) 98 10/24/18 19:51 100 T-piece 8.0 30 10/24/18 19:51 T-piece 8.0 30 10/24/18 19:51 97 20 100 T-piece 8.0 30 Intake and Output 10/24/18 10/25/18 18:59 06:59 Intake Total 140 ml Output Total 2800 ml 720 ml Balance -2660 ml -720 ml Intake Free Water 40 ml Tube Feeding 50 ml Other 50 ml Output Urine Total 2500 ml 720 ml Stool Total 300 ml Height (Feet): 5 Height (Inches): 7.00 Weight (Pounds): 150 Neck: supple Cardiovascular: regular rhythm Respiratory/Chest: lungs clear Abdomen: soft Lula Aaron MD Oct 25, 2018 16:51
--- NOTE | 2018-10-25 19:28 | NUR ---
HAND-OFF: Report given to Aurelia Soto RN Patient stable in bed .
--- NOTE | 2018-10-25 19:39 | Pulmonology Progress Note ---
Assessment/Plan Problems: (1) Cerebral infarction (2) Encephalopathy (3) Severe sepsis (4) Lactic acid acidosis (5) Tracheostomy care (6) Feeding by G-tube (7) DNAR (do not attempt resuscitation) Assessment/Plan D/W daughter Blanche Vargas, ethics and Dr. Ibarra, DNAR/DNI but continue other treatment measures for now. If unimproved in 3 months from now family will consider transitioning to [facility] -ABX per ID, F/U repeat CX's -Monitor fever curve -Optimize pulmonary hygiene/mobilize as tolerated -Continue TC -Titrate O2 -HHN's and NAC -TF's as tolerated -Decrease HC to 12.5 BID and taper -Monitor volumes and renal function, PRN bolus -DNAR -Dispo planning once acute issues resolve: would only transfer to SNF if being D /C'd on hospice. Otherwise, needs to be on IV Abx and still not hemodynamically stable. Subjective Allergies: Coded Allergies: No Known Allergies (Unverified , 10/11/18) Subjective AFVSS BP stable O2 needs stable no F/C rolly TF's Objective Last 24 Hour Vital Signs Date Time Temp Pulse Resp B/P (MAP) Pulse Ox O2 Delivery O2 Flow Rate FiO2 10/25/18 16:00 6.0 30 10/25/18 16:00 92 10/25/18 16:00 98.5 65 20 108/59 (75) 95 10/25/18 13:35 89 20 99 T-piece 8.0 30 10/25/18 13:25 98 T-piece 8.0 30 10/25/18 13:25 T-piece 8.0 30 10/25/18 13:25 91 20 98 T-piece 8.0 30 10/25/18 12:00 89 10/25/18 12:00 97.7 82 20 102/68 (79) 97 10/25/18 12:00 6.0 30 10/25/18 09:34 Trach Collar 6.0 Trach Collar 6.0 10/25/18 08:42 76 93/57 10/25/18 08:27 62 20 99 T-piece 8.0 30 10/25/18 08:18 T-piece 8.0 30 10/25/18 08:18 57 20 98 T-piece 8.0 30 10/25/18 08:18 98 T-piece 8.0 30 10/25/18 08:00 76 10/25/18 08:00 96.2 80 18 93/57 (69) 97 10/25/18 08:00 6.0 30 10/25/18 04:00 62 10/25/18 04:00 6.0 30 10/25/18 04:00 96.2 73 20 91/56 (68) 99 10/25/18 01:02 89 20 100 T-piece 8.0 30 10/25/18 00:53 99 T-piece 8.0 30 10/25/18 00:52 91 20 99 T-piece 8.0 30 10/25/18 00:52 T-piece 8.0 30 10/25/18 00:00 99.8 104 20 111/71 (84) 94 10/25/18 00:00 97 10/24/18 22:25 79 104/61 (75) 91 10/24/18 21:00 Trach Collar 8.0 Trach Collar 8.0 10/24/18 20:00 6.0 30 10/24/18 20:00 92 20 100 T-piece 8.0 30 10/24/18 20:00 98.2 83 20 82/51 (61) 98 10/24/18 19:51 100 T-piece 8.0 30 10/24/18 19:51 T-piece 8.0 30 10/24/18 19:51 97 20 100 T-piece 8.0 30 Intake and Output 10/24/18 10/25/18 18:59 06:59 Intake Total 140 ml Output Total 2800 ml 720 ml Balance -2660 ml -720 ml Intake Free Water 40 ml Tube Feeding 50 ml Other 50 ml Output Urine Total 2500 ml 720 ml Stool Total 300 ml General Appearance: no acute distress, cachetic, other - non-verbal HEENT: normocephalic, atraumatic, anicteric, mucous membranes moist, status post trach Respiratory/Chest: rhonchi Cardiovascular: normal peripheral pulses, normal rate, regular rhythm Abdomen: normal bowel sounds, soft, non tender, no organomegaly, non distended , no mass, other - S/P GT Extremities: no cyanosis, no clubbing, no edema Current Medications Medications (Trade) Dose Ordered Sig/Last Route PRN Reason Start Time Stop Time Status Last Admin Dose Admin Acetaminophen (Tylenol) 650 mg Q4H PRN NG for fever >100.3 10/18/18 01:30 11/17/18 01:29 10/23/18 20:33 Acetaminophen (Tylenol) 650 mg Q4H PRN RECTAL Prn Headache/Temp > 101 10/17/18 07:30 11/16/18 07:29 Acetylcysteine (Mucomyst) 100 mg TIDRT N 10/19/18 13:00 11/15/18 12:59 10/25/18 13:23 Albuterol/ Ipratropium (Albuterol/ Ipratropium) 3 ml Q6HRT HHN 10/19/18 13:00 10/26/18 12:59 10/25/18 13:24 Dextrose (Dextrose 50%) 25 ml Q30M PRN IV Hypoglycemia 10/19/18 10:45 11/18/18 10:44 Dextrose (Dextrose 50%) 50 ml Q30M PRN IV Hypoglycemia 10/19/18 10:45 11/18/18 10:44 Famotidine (Pepcid) 20 mg BID GT 10/19/18 09:00 11/18/18 08:59 10/25/18 17:41 Heparin Sodium (Porcine) (Heparin 5000 units/ml) 5,000 units EVERY 12 HOURS SUBQ 10/17/18 09:00 11/10/18 20:59 10/25/18 08:41 Hydrocortisone (Solu-CORTEF) 25 mg BID IV 10/19/18 09:00 11/10/18 21:59 10/25/18 17:40 Insulin Aspart (NovoLOG) EVERY 6 HOURS SUBQ 10/19/18 12:00 11/18/18 11:59 10/25/18 17:44 Levofloxacin (Levaquin) 750 mg DAILY GT 10/22/18 09:00 10/29/18 08:59 10/25/18 08:41 Meropenem 500 mg/ Sodium Chloride 55 ml @ 110 mls/hr Q8H IVPB 10/24/18 15:00 10/29/18 14:59 10/25/18 15:40 Metoclopramide HCl (Reglan) 10 mg Q8H PRN IVP Nausea & Vomiting 10/19/18 09:45 11/18/18 09:44 10/19/18 09:58 Metoprolol Tartrate (Lopressor) 25 mg Q12HR ORAL 10/18/18 09:00 11/17/18 08:59 10/19/18 08:34 Potassium Chloride (K-Dur) 40 meq TWICE A DAY GT 10/17/18 09:00 11/15/18 17:59 10/25/18 17:41 Vancomycin HCl (Vanco rx to dose) 1 ea DAILY PRN MISC Per rx protocol 10/19/18 11:15 11/18/18 11:14 Vancomycin HCl 1 gm/Dextrose 275 ml @ 183.708 mls/hr Q12HR@0100,1300 IVPB 10/20/18 01:00 10/30/18 00:59 10/25/18 13:42 Jordy Lou MD Oct 25, 2018 19:38
[2018-10-25 20:00] VITALS: BP 113/71
--- NOTE | 2018-10-25 20:00 | NUR ---
NURSE NOTES: Report received from Alexus SHARIF. Patient is observed in bed, unable to open eyes spontaneously and make needs known, however, patient is able to localize pain. Respiratory even and unlabored. Patient is on trach, FiO2: 30%. GT site is asymptomatic, patent, and intact. GTF is running at a prescribed rate. <10cc residual noted. IV site is asymptomatic, patent, and intact. Castrejon catheter is draining via gravity. Rectal tube is in place; no leakage noted. Patient is afebrile. Pt tolerated repositioning. Bed is in lowest position with side rails up x2 and brakes are engaged. HOB is elevated. Will continue to monitor.
--- NOTE | 2018-10-25 21:48 | Nephrology Progress Note ---
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 Plan no labs today K and Phos IV as needed IV Pepcid continue the rest DNAR / DNI Comfort care Poor prognosis Subjective ROS Limited/Unobtainable: No Objective Objective Last 24 Hour Vital Signs Date Time Temp Pulse Resp B/P (MAP) Pulse Ox O2 Delivery O2 Flow Rate FiO2 10/25/18 20:23 99 113/71 10/25/18 19:45 99 20 99 T-piece 8.0 30 10/25/18 19:43 98 T-piece 8.0 30 10/25/18 19:43 T-piece 8.0 30 10/25/18 19:34 97 20 98 T-piece 8.0 30 10/25/18 19:30 97 18 T-piece 8.0 30 10/25/18 16:00 6.0 30 10/25/18 16:00 92 10/25/18 16:00 98.5 65 20 108/59 (75) 95 10/25/18 13:35 89 20 99 T-piece 8.0 30 10/25/18 13:25 98 T-piece 8.0 30 10/25/18 13:25 T-piece 8.0 30 10/25/18 13:25 91 20 98 T-piece 8.0 30 10/25/18 12:00 89 10/25/18 12:00 97.7 82 20 102/68 (79) 97 10/25/18 12:00 6.0 30 10/25/18 09:34 Trach Collar 6.0 Trach Collar 6.0 10/25/18 08:42 76 93/57 10/25/18 08:27 62 20 99 T-piece 8.0 30 10/25/18 08:18 T-piece 8.0 30 10/25/18 08:18 57 20 98 T-piece 8.0 30 10/25/18 08:18 98 T-piece 8.0 30 10/25/18 08:00 76 10/25/18 08:00 96.2 80 18 93/57 (69) 97 10/25/18 08:00 6.0 30 10/25/18 04:00 62 10/25/18 04:00 6.0 30 10/25/18 04:00 96.2 73 20 91/56 (68) 99 10/25/18 01:02 89 20 100 T-piece 8.0 30 10/25/18 00:53 99 T-piece 8.0 30 10/25/18 00:52 91 20 99 T-piece 8.0 30 10/25/18 00:52 T-piece 8.0 30 10/25/18 00:00 99.8 104 20 111/71 (84) 94 10/25/18 00:00 97 10/24/18 22:25 79 104/61 (75) 91 Intake and Output 10/24/18 10/25/18 18:59 06:59 Intake Total 140 ml Output Total 2800 ml 720 ml Balance -2660 ml -720 ml Intake Free Water 40 ml Tube Feeding 50 ml Other 50 ml Output Urine Total 2500 ml 720 ml Stool Total 300 ml Height (Feet): 5 Height (Inches): 7.00 Weight (Pounds): 150 General Appearance: no apparent distress, lethargic Objective no change Clint Piper MD Oct 25, 2018 21:48
--- NOTE | 2018-10-25 23:49 | Cardiology Progress Note ---
Assessment/Plan Assessment/Plan 1. Septic shock,resolved, due to B/L pneumonia. 2. Dyspnea due to B/L pneumonia, 2D echo revealing + wall motion abnormalities in the septal wall, ? ischemic CM, LVEF ~45%. 3. CVA with severe debilitation, consider ASA and statins. 4. Dysphagia, s/p PEG placement. 5. VDRF, s/p tracheostomy placement. 6. Sinus tachycardia, resolved, continue metoprolol. Subjective Subjective Sinus rhythm at rate of 88. On Trach collar, FiO2 30%. Febrile. Objective Last 24 Hour Vital Signs Date Time Temp Pulse Resp B/P (MAP) Pulse Ox O2 Delivery O2 Flow Rate FiO2 10/25/18 21:00 Trach Collar 8.0 Trach Collar 8.0 10/25/18 20:49 88 10/25/18 20:23 99 113/71 10/25/18 20:00 98.1 96 20 113/71 (85) 100 10/25/18 20:00 6.0 30 10/25/18 19:45 99 20 99 T-piece 8.0 30 10/25/18 19:43 98 T-piece 8.0 30 10/25/18 19:43 T-piece 8.0 30 10/25/18 19:34 97 20 98 T-piece 8.0 30 10/25/18 19:30 97 18 T-piece 8.0 30 10/25/18 16:00 6.0 30 10/25/18 16:00 92 10/25/18 16:00 98.5 65 20 108/59 (75) 95 10/25/18 13:35 89 20 99 T-piece 8.0 30 10/25/18 13:25 98 T-piece 8.0 30 10/25/18 13:25 T-piece 8.0 30 10/25/18 13:25 91 20 98 T-piece 8.0 30 10/25/18 12:00 89 10/25/18 12:00 97.7 82 20 102/68 (79) 97 10/25/18 12:00 6.0 30 10/25/18 09:34 Trach Collar 6.0 Trach Collar 6.0 10/25/18 08:42 76 93/57 10/25/18 08:27 62 20 99 T-piece 8.0 30 2/26/19 08:18 T-piece 8.0 30 10/25/18 08:18 57 20 98 T-piece 8.0 30 10/25/18 08:18 98 T-piece 8.0 30 10/25/18 08:00 76 10/25/18 08:00 96.2 80 18 93/57 (69) 97 10/25/18 08:00 6.0 30 10/25/18 04:00 62 10/25/18 04:00 6.0 30 10/25/18 04:00 96.2 73 20 91/56 (68) 99 10/25/18 01:02 89 20 100 T-piece 8.0 30 10/25/18 00:53 99 T-piece 8.0 30 10/25/18 00:52 91 20 99 T-piece 8.0 30 10/25/18 00:52 T-piece 8.0 30 10/25/18 00:00 99.8 104 20 111/71 (84) 94 10/25/18 00:00 97 Intake and Output 10/24/18 10/25/18 19:00 07:00 Intake Total 140 ml Output Total 2800 ml 720 ml Balance -2660 ml -720 ml Intake Free Water 40 ml Tube Feeding 50 ml Other 50 ml Output Urine Total 2500 ml 720 ml Stool Total 300 ml 2D Echo: LVEF 45%, Septal wall hypokinesia, Grade I LVDD Objective HEENT: Atraumatic, bitemporal wasting, dry mucosal membranes, PERRLA NECK: cannot assess JVP, tracheostomy tube in place. HEART: Regular rate and rhythm. No murmurs, gallops or rubs. Lungs: Bibasilar crackles. ABDOMEN: Soft, NT/ND, + BS. G-tube in place. EXTREMITIES: No edema, clubbing or cyanosis. NEUROLOGIC: Nonresponsive, vegetative state. Davy Estrada MD Oct 25, 2018 23:49
--- NOTE | 2018-10-26 | NUR ---
NURSE NOTES: Respiratory even and unlabored. No s/s of acute distress noted at this time. IV abx is running at a prescribed rate. Pt is tolerating GTF. Temp: 99.4; cooling measures implemented. VSS. Will continue to monitor.
[2018-10-26 00:02] VITALS: BP 115/67
[2018-10-26] MEDS: NovoLOG Insulin Flexpen SUBQ SCH ×3 (00:17→11:47)
[2018-10-26] MEDS: Vancomycin 1gm/D5W 275ml IVPB SCH ×2 (01:37)
[2018-10-26] MEDS: Albuterol/Ipratropium 3ml neb HHN SCH ×2 (01:40→07:20)
[2018-10-26 04:25] VITALS: BP 125/79
--- NOTE | 2018-10-26 07:28 | NUR ---
NURSE NOTES: Received report from KOLE Moses. Patient asleep and is in stable condition. No acute distress/SOB noted. Castrejon is intact and draining and rectal tube is intact. Call light placed in easy reach. Will continue plan of care.
[2018-10-26] MEDS: Meropenem 500 MG in NS 55 ML IVPB SCH (07:39)
--- NOTE | 2018-10-26 07:39 | NUR ---
HAND-OFF: Report given to Ronny SHARIF. Patient is in stable condition. Endorsed plan of care.
[2018-10-26 08:00] VITALS: BP 114/73
[2018-10-26 08:22] LABS: BASOPHILS % (AUTO) 0.9 % (0.0-2.0); EOSINOPHILS % (AUTO) 0.9 % (0.0-3.0); HEMATOCRIT 29.9 % (42.0-52.0); HEMOGLOBIN 9.6 G/DL (14.2-18.0); LYMPHOCYTES % (AUTO) 46.9 % (20.0-45.0); MEAN CORPUSCULAR VOLUME 101 FL (80-99); NEUTROPHILS % (AUTO) 43.3 % (45.0-75.0); PLATELET COUNT 244 K/UL (150-450); RED BLOOD COUNT 2.97 M/UL (4.70-6.10); WHITE BLOOD COUNT 6.4 K/UL (4.8-10.8)
--- NOTE | 2018-10-26 08:28 | NUR ---
NURSE NOTES:WOUND CARE NOTES:Partail thickness wound sacrum resolving. Base of wound moist with pink granulation. Edges adherent to base of wound .Periwound intact with dark skin tone without induration or erythema.(L)2.5cm x (W)4.5cm. Bilat heels malleoli are easily blanchable and protective foam drsgs reapplied as prevention.Pt has an APM /CLINT mattress and observed positioned with pillows and with heels floated. Tx.Plan: Continue current wound care orders and wound prevention protocols .
[2018-10-26 08:58] LABS: ALANINE AMINOTRANSFERASE 26 U/L (12-78); ALBUMIN 2.8 G/DL (3.4-5.0); ALBUMIN/GLOBULIN RATIO 0.7 (1.0-2.7); ALKALINE PHOSPHATASE 110 U/L (46-116); ANION GAP 7 mmol/L (5-15); ASPARTATE AMINO TRANSFERASE 23 U/L (15-37); BILIRUBIN,TOTAL 0.3 MG/DL (0.2-1.0); BLOOD UREA NITROGEN 11 mg/dL (7-18); CALCIUM 9.6 MG/DL (8.5-10.1); CARBON DIOXIDE 30 MMOL/L (21-32); CHLORIDE 100 MMOL/L (98-107); CREATININE 0.7 MG/DL (0.55-1.30); PHOSPHORUS 3.6 MG/DL (2.5-4.9); POTASSIUM 4.3 MMOL/L (3.5-5.1); SODIUM 137 MMOL/L (136-145)
[2018-10-26] MEDS ORDERED: Hydrocortisone 100mg Inj IV SCH (09:00)
[2018-10-26] MEDS: Metoprolol 25mg tab ORAL SCH (09:00)
[2018-10-26] MEDS: Levofloxacin 750mg tab GT SCH (09:11)
[2018-10-26] MEDS: Heparin 5000 units/ml inj SUBQ SCH (09:13)
--- NOTE | 2018-10-26 09:54 | Pulmonology Progress Note ---
Assessment/Plan Problems: (1) Cerebral infarction (2) Encephalopathy (3) Severe sepsis (4) Lactic acid acidosis (5) Tracheostomy care (6) Feeding by G-tube (7) DNAR (do not attempt resuscitation) Assessment/Plan D/W daughter Blanche Vargas, ethics and Dr. Ibarra, DNAR/DNI but continue other treatment measures for now. If unimproved in 3 months from now family will consider transitioning to ROLL TENSION TESTER -ABX per ID, F/U repeat CX's -Monitor fever curve -Optimize pulmonary hygiene/mobilize as tolerated -Continue TC -Titrate O2 -HHN's and NAC -TF's as tolerated -D/C HYDROCORTISONE -Monitor volumes and renal function, PRN bolus -DNAR -Dispo planning Subjective Allergies: Coded Allergies: No Known Allergies (Unverified , 10/11/18) Subjective AFVSS BP stable O2 needs stable no F/C rolly TF's Objective Last 24 Hour Vital Signs Date Time Temp Pulse Resp B/P (MAP) Pulse Ox O2 Delivery O2 Flow Rate FiO2 10/26/18 08:00 97.7 90 18 114/73 (87) 96 10/26/18 07:31 92 20 100 T-piece 8.0 30 10/26/18 07:23 95 T-piece 8.0 30 10/26/18 07:23 T-piece 8.0 30 10/26/18 07:21 94 18 95 T-piece 8.0 30 10/26/18 04:27 6.0 30 10/26/18 04:25 97.2 84 20 125/79 (94) 100 10/26/18 03:25 83 10/26/18 01:40 98 20 100 T-piece 8.0 30 10/26/18 01:38 T-piece 8.0 30 10/26/18 01:38 98 T-piece 8.0 30 10/26/18 01:30 92 20 95 T-piece 8.0 30 10/26/18 00:05 6.0 30 10/26/18 00:02 98.0 89 20 115/67 (83) 100 10/25/18 23:29 92 10/25/18 21:00 Trach Collar 8.0 Trach Collar 8.0 10/25/18 20:49 88 10/25/18 20:23 99 113/71 10/25/18 20:00 98.1 96 20 113/71 (85) 100 10/25/18 20:00 6.0 30 10/25/18 19:45 99 20 99 T-piece 8.0 30 10/25/18 19:43 98 T-piece 8.0 30 10/25/18 19:43 T-piece 8.0 30 10/25/18 19:34 97 20 98 T-piece 8.0 30 10/25/18 19:30 97 18 T-piece 8.0 30 10/25/18 16:00 6.0 30 10/25/18 16:00 92 10/25/18 16:00 98.5 65 20 108/59 (75) 95 10/25/18 13:35 89 20 99 T-piece 8.0 30 10/25/18 13:25 98 T-piece 8.0 30 10/25/18 13:25 T-piece 8.0 30 10/25/18 13:25 91 20 98 T-piece 8.0 30 10/25/18 12:00 89 10/25/18 12:00 97.7 82 20 102/68 (79) 97 10/25/18 12:00 6.0 30 Intake and Output 10/25/18 10/26/18 19:00 07:00 Output Total 650 ml Balance -650 ml Output Urine Total 650 ml # Voids 3 General Appearance: no acute distress, cachetic HEENT: normocephalic, atraumatic, anicteric, mucous membranes moist, status post trach Respiratory/Chest: chest wall non-tender, lungs clear, normal breath sounds, no respiratory distress, no accessory muscle use Cardiovascular: normal peripheral pulses, normal rate, regular rhythm Abdomen: normal bowel sounds, soft, non tender, no organomegaly, non distended , no mass, other - GT Extremities: no cyanosis, no clubbing, no edema Microbiology Date/Time Source Procedure Growth Status 10/24/18 15:20 Blood Blood Culture - Preliminary NO GROWTH AFTER 24 HOURS Resulted 10/24/18 15:20 Blood Blood Culture - Preliminary NO GROWTH AFTER 24 HOURS Resulted Laboratory Tests 10/26/18 06:27: White Blood Count 6.4, Red Blood Count 2.97L, Hemoglobin 9.6L, Hematocrit 29.9L , Mean Corpuscular Volume 101H, Mean Corpuscular Hemoglobin 32.3H, Mean Corpuscular Hemoglobin Concent 32.1, Red Cell Distribution Width 20.0H, Platelet Count 244, Mean Platelet Volume 6.1L, Neutrophils (%) (Auto) 43.3L, Lymphocytes (%) (Auto) 46.9H, Monocytes (%) (Auto) 8.0, Eosinophils (%) (Auto) 0.9, Basophils (%) (Auto) 0.9, Sodium Level 137, Potassium Level 4.3, Chloride Level 100, Carbon Dioxide Level 30, Anion Gap 7, Blood Urea Nitrogen 11, Creatinine 0.7, Estimat Glomerular Filtration Rate > 60, Glucose Level 161H, Calcium Level 9.6, Phosphorus Level 3.6, Magnesium Level 2.1, Total Bilirubin 0.3, Aspartate Amino Transf (AST/SGOT) 23, Alanine Aminotransferase (ALT/SGPT) 26, Alkaline Phosphatase 110, C-Reactive Protein, Quantitative 0.8, Pro-B-Type Natriuretic Peptide 136H, Total Protein 6.7, Albumin 2.8L, Globulin 3.9, Albumin /Globulin Ratio 0.7L Current Medications Medications (Trade) Dose Ordered Sig/Lsat Route PRN Reason Start Time Stop Time Status Last Admin Dose Admin Acetaminophen (Tylenol) 650 mg Q4H PRN NG for fever >100.3 10/18/18 01:30 11/17/18 01:29 10/23/18 20:33 Acetaminophen (Tylenol) 650 mg Q4H PRN RECTAL Prn Headache/Temp > 101 10/17/18 07:30 11/16/18 07:29 Acetylcysteine (Mucomyst) 100 mg TIDRT N 10/19/18 13:00 11/15/18 12:59 10/26/18 07:21 Albuterol/ Ipratropium (Albuterol/ Ipratropium) 3 ml Q6HRT N 10/19/18 13:00 10/26/18 12:59 10/26/18 07:20 Dextrose (Dextrose 50%) 25 ml Q30M PRN IV Hypoglycemia 10/19/18 10:45 11/18/18 10:44 Dextrose (Dextrose 50%) 50 ml Q30M PRN IV Hypoglycemia 10/19/18 10:45 11/18/18 10:44 Famotidine (Pepcid) 20 mg BID GT 10/19/18 09:00 11/18/18 08:59 10/26/18 09:12 Heparin Sodium (Porcine) (Heparin 5000 units/ml) 5,000 units EVERY 12 HOURS SUBQ 10/17/18 09:00 11/10/18 20:59 10/26/18 09:13 Hydrocortisone (Solu-CORTEF) 12.5 mg BID IV 10/26/18 09:00 11/10/18 21:59 10/26/18 09:12 Insulin Aspart (NovoLOG) EVERY 6 HOURS SUBQ 10/19/18 12:00 11/18/18 11:59 10/26/18 06:12 Levofloxacin (Levaquin) 750 mg DAILY GT 10/22/18 09:00 10/29/18 08:59 10/26/18 09:11 Meropenem 500 mg/ Sodium Chloride 55 ml @ 110 mls/hr Q8H IVPB 10/24/18 15:00 10/29/18 14:59 10/26/18 07:39 Metoclopramide HCl (Reglan) 10 mg Q8H PRN IVP Nausea & Vomiting 10/19/18 09:45 11/18/18 09:44 10/19/18 09:58 Metoprolol Tartrate (Lopressor) 25 mg Q12HR ORAL 10/18/18 09:00 11/17/18 08:59 10/25/18 20:23 Potassium Chloride (K-Dur) 40 meq TWICE A DAY GT 10/17/18 09:00 11/15/18 17:59 10/26/18 09:11 Vancomycin HCl (Vanco rx to dose) 1 ea DAILY PRN MISC Per rx protocol 10/19/18 11:15 11/18/18 11:14 Vancomycin HCl 1 gm/Dextrose 275 ml @ 183.708 mls/hr Q12HR@0100,1300 IVPB 10/20/18 01:00 10/30/18 00:59 10/26/18 01:37 Jordy Lou MD Oct 26, 2018 09:54
--- NOTE | 2018-10-26 10:19 | Surgery Progress Note ---
Surgery Progress Note Subjective Additional Comments Partail thickness wound sacrum resolving. Base of wound moist with pink granulation. Edges adherent to base of wound .Periwound intact with dark skin tone without induration or erythema.(L)2.5cm x (W)4.5cm. Objective Last 24 Hour Vital Signs Date Time Temp Pulse Resp B/P (MAP) Pulse Ox O2 Delivery O2 Flow Rate FiO2 10/26/18 09:00 90 114/73 10/26/18 08:00 90 10/26/18 08:00 97.7 90 18 114/73 (87) 96 10/26/18 07:31 92 20 100 T-piece 8.0 30 10/26/18 07:23 95 T-piece 8.0 30 10/26/18 07:23 T-piece 8.0 30 10/26/18 07:21 94 18 95 T-piece 8.0 30 10/26/18 04:27 6.0 30 10/26/18 04:25 97.2 84 20 125/79 (94) 100 10/26/18 03:25 83 10/26/18 01:40 98 20 100 T-piece 8.0 30 10/26/18 01:38 T-piece 8.0 30 10/26/18 01:38 98 T-piece 8.0 30 10/26/18 01:30 92 20 95 T-piece 8.0 30 10/26/18 00:05 6.0 30 10/26/18 00:02 98.0 89 20 115/67 (83) 100 10/25/18 23:29 92 10/25/18 21:00 Trach Collar 8.0 Trach Collar 8.0 10/25/18 20:49 88 10/25/18 20:23 99 113/71 10/25/18 20:00 98.1 96 20 113/71 (85) 100 10/25/18 20:00 6.0 30 10/25/18 19:45 99 20 99 T-piece 8.0 30 10/25/18 19:43 98 T-piece 8.0 30 10/25/18 19:43 T-piece 8.0 30 10/25/18 19:34 97 20 98 T-piece 8.0 30 10/25/18 19:30 97 18 T-piece 8.0 30 10/25/18 16:00 6.0 30 10/25/18 16:00 92 10/25/18 16:00 98.5 65 20 108/59 (75) 95 10/25/18 13:35 89 20 99 T-piece 8.0 30 10/25/18 13:25 98 T-piece 8.0 30 10/25/18 13:25 T-piece 8.0 30 10/25/18 13:25 91 20 98 T-piece 8.0 30 10/25/18 12:00 89 10/25/18 12:00 97.7 82 20 102/68 (79) 97 10/25/18 12:00 6.0 30 I&O Intake and Output 10/25/18 10/26/18 19:00 07:00 Output Total 650 ml Balance -650 ml Output Urine Total 650 ml # Voids 3 Laboratory Tests Test 10/26/18 06:27 White Blood Count 6.4 K/UL (4.8-10.8) Red Blood Count 2.97 M/UL (4.70-6.10) L Hemoglobin 9.6 G/DL (14.2-18.0) L Hematocrit 29.9 % (42.0-52.0) L Mean Corpuscular Volume 101 FL (80-99) H Mean Corpuscular Hemoglobin 32.3 PG (27.0-31.0) H Mean Corpuscular Hemoglobin Concent 32.1 G/DL (32.0-36.0) Red Cell Distribution Width 20.0 % (11.6-14.8) H Platelet Count 244 K/UL (150-450) Mean Platelet Volume 6.1 FL (6.5-10.1) L Neutrophils (%) (Auto) 43.3 % (45.0-75.0) L Lymphocytes (%) (Auto) 46.9 % (20.0-45.0) H Monocytes (%) (Auto) 8.0 % (1.0-10.0) Eosinophils (%) (Auto) 0.9 % (0.0-3.0) Basophils (%) (Auto) 0.9 % (0.0-2.0) Sodium Level 137 MMOL/L (136-145) Potassium Level 4.3 MMOL/L (3.5-5.1) Chloride Level 100 MMOL/L (98-107) Carbon Dioxide Level 30 MMOL/L (21-32) Anion Gap 7 mmol/L (5-15) Blood Urea Nitrogen 11 mg/dL (7-18) Creatinine 0.7 MG/DL (0.55-1.30) Estimat Glomerular Filtration Rate > 60 mL/min (>60) Glucose Level 161 MG/DL (74-106) H Calcium Level 9.6 MG/DL (8.5-10.1) Phosphorus Level 3.6 MG/DL (2.5-4.9) Magnesium Level 2.1 MG/DL (1.8-2.4) Total Bilirubin 0.3 MG/DL (0.2-1.0) Aspartate Amino Transf (AST/SGOT) 23 U/L (15-37) Alanine Aminotransferase (ALT/SGPT) 26 U/L (12-78) Alkaline Phosphatase 110 U/L (46-116) C-Reactive Protein, Quantitative 0.8 mg/dL (0.00-0.90) Pro-B-Type Natriuretic Peptide 136 pg/mL (0-125) H Total Protein 6.7 G/DL (6.4-8.2) Albumin 2.8 G/DL (3.4-5.0) L Globulin 3.9 g/dL Albumin/Globulin Ratio 0.7 (1.0-2.7) L Plan Problems: (1) Severe sepsis Assessment & Plan: leukocytosis resolved on IV Abx labs noted uop okay rx as written dvt ppx (2) Multiple wounds Assessment & Plan: Pt presents with partial thickness pressure injuries to R and L gluteal clefts and an area at sacrococcygeal that is dark and indurated. Wounds present on admission. L buttocks partial thickness wound moist and viable .Edges adherent and flat .Non-blanchable erythema periwound. (L)3.9cm x (W)3.5cm. R gluteal cleft partial thickness pressure injury.Wound bed moist and viable.edges adhrent and flat .Non-blanchable erythema periwound (L)0.4cm x (W) 0.5cm. Bilat heels boggy but blanchable. Non-blanchable erythema noted to lateral R heel. Pt's wounds resolving. Partial thickness pressure injuries to r and L buttocks pink -epithelialized and dry.Area of induration at sacrococcygeal previously noted has resolved.Brownish discoloration without induration or fluctuance noted at sacrococcygeal area. Bilat heels pink and easily blanchable. Bilat malleoli are pink and blanchable .No new skin concerns noted. Pt has an APM / CLINT mattress overlay. Observed positioned with pillows and with both heels off- loaded. Tx.Plan: Apply Moisture Barrier Paste to R and L buttocks .Cover with Optifoam drsg .Change daily and prn. Apply Cavilon Skin Barrier to R and L heels and Malleoli.Cover each site with Optifoam drsgs .Change every 7 days and PRN. APM/CLINT mattress. Reposition at least every 2hours or as tolerated. Off-load heels with pillow. Monroe Reynaga Oct 26, 2018 10:19
[2018-10-26 12:00] VITALS: BP 106/70
--- NOTE | 2018-10-26 12:30 | NUR ---
*-* RODRICK CARRERO *-* PATIENT HAS BEEN REFERRED BACK TO: [facility] P:[phone] F:[phone] Addendum: 10/26/18 at 1320 by AKOSUA LARSON LVN LVN SPOKE WITH ADA AT [facility] WHO STATED PATIENT CAN RETURN TO ROOM 15B NURSE TO CALL [phone] ASK FOR ADA AND GIVE REPORT
--- NOTE | 2018-10-26 12:39 | Infectious Diseases Prog Note ---
Assessment/Plan Assessment/Plan IMPRESSION: New fever resolved Leukocytosis resolved Bacteremia with CoANS Urinary tract infection with ESBL E. coli pneumonia, acute renal failure, resolving lactic acidosis, resolving acute on chronic respiratory failure with hypoxemia, anemia, diabetes mellitus. Anemia Diarrhea, C. 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 Hypokalemia P: Discontinue Vancomycin, Levaquin & Meropenem Agree with discharge Poor prognosis Family refused hospice Subjective ROS Limited/Unobtainable: Yes Allergies: Coded Allergies: No Known Allergies (Unverified , 10/11/18) Objective Vital Signs Last 24 Hour Vital Signs Date Time Temp Pulse Resp B/P (MAP) Pulse Ox O2 Delivery O2 Flow Rate FiO2 10/26/18 12:00 97.4 105 20 106/70 (82) 97 10/26/18 09:00 90 114/73 10/26/18 09:00 Trach Collar 8.0 Trach Collar 8.0 10/26/18 08:00 90 10/26/18 08:00 6.0 30 10/26/18 08:00 97.7 90 18 114/73 (87) 96 10/26/18 07:31 92 20 100 T-piece 8.0 30 10/26/18 07:23 95 T-piece 8.0 30 10/26/18 07:23 T-piece 8.0 30 10/26/18 07:21 94 18 95 T-piece 8.0 30 10/26/18 04:27 6.0 30 10/26/18 04:25 97.2 84 20 125/79 (94) 100 10/26/18 03:25 83 10/26/18 01:40 98 20 100 T-piece 8.0 30 10/26/18 01:38 T-piece 8.0 30 10/26/18 01:38 98 T-piece 8.0 30 10/26/18 01:30 92 20 95 T-piece 8.0 30 10/26/18 00:05 6.0 30 10/26/18 00:02 98.0 89 20 115/67 (83) 100 10/25/18 23:29 92 10/25/18 21:00 Trach Collar 8.0 Trach Collar 8.0 10/25/18 20:49 88 10/25/18 20:23 99 113/71 10/25/18 20:00 98.1 96 20 113/71 (85) 100 10/25/18 20:00 6.0 30 10/25/18 19:45 99 20 99 T-piece 8.0 30 10/25/18 19:43 98 T-piece 8.0 30 10/25/18 19:43 T-piece 8.0 30 10/25/18 19:34 97 20 98 T-piece 8.0 30 10/25/18 19:30 97 18 T-piece 8.0 30 10/25/18 16:00 6.0 30 10/25/18 16:00 92 10/25/18 16:00 98.5 65 20 108/59 (75) 95 10/25/18 13:35 89 20 99 T-piece 8.0 30 10/25/18 13:25 98 T-piece 8.0 30 10/25/18 13:25 T-piece 8.0 30 10/25/18 13:25 91 20 98 T-piece 8.0 30 Height (Feet): 5 Height (Inches): 7.00 Weight (Pounds): 150 General Appearance: no acute distress HEENT: mucous membranes moist Respiratory/Chest: lungs clear Cardiovascular: tachycardia Abdomen: soft, non tender, other - GT feeding Extremities: no edema Neurologic/Psychiatric: aphasia Microbiology Date/Time Source Procedure Growth Status 10/24/18 15:20 Blood Blood Culture - Preliminary NO GROWTH AFTER 24 HOURS Resulted 10/24/18 15:20 Blood Blood Culture - Preliminary NO GROWTH AFTER 24 HOURS Resulted Laboratory Tests Test 10/26/18 06:27 10/26/18 12:07 White Blood Count 6.4 K/UL (4.8-10.8) Red Blood Count 2.97 M/UL (4.70-6.10) L Hemoglobin 9.6 G/DL (14.2-18.0) L Hematocrit 29.9 % (42.0-52.0) L Mean Corpuscular Volume 101 FL (80-99) H Mean Corpuscular Hemoglobin 32.3 PG (27.0-31.0) H Mean Corpuscular Hemoglobin Concent 32.1 G/DL (32.0-36.0) Red Cell Distribution Width 20.0 % (11.6-14.8) H Platelet Count 244 K/UL (150-450) Mean Platelet Volume 6.1 FL (6.5-10.1) L Neutrophils (%) (Auto) 43.3 % (45.0-75.0) L Lymphocytes (%) (Auto) 46.9 % (20.0-45.0) H Monocytes (%) (Auto) 8.0 % (1.0-10.0) Eosinophils (%) (Auto) 0.9 % (0.0-3.0) Basophils (%) (Auto) 0.9 % (0.0-2.0) Sodium Level 137 MMOL/L (136-145) Potassium Level 4.3 MMOL/L (3.5-5.1) Chloride Level 100 MMOL/L (98-107) Carbon Dioxide Level 30 MMOL/L (21-32) Anion Gap 7 mmol/L (5-15) Blood Urea Nitrogen 11 mg/dL (7-18) Creatinine 0.7 MG/DL (0.55-1.30) Estimat Glomerular Filtration Rate > 60 mL/min (>60) Glucose Level 161 MG/DL (74-106) H Calcium Level 9.6 MG/DL (8.5-10.1) Phosphorus Level 3.6 MG/DL (2.5-4.9) Magnesium Level 2.1 MG/DL (1.8-2.4) Total Bilirubin 0.3 MG/DL (0.2-1.0) Aspartate Amino Transf (AST/SGOT) 23 U/L (15-37) Alanine Aminotransferase (ALT/SGPT) 26 U/L (12-78) Alkaline Phosphatase 110 U/L (46-116) C-Reactive Protein, Quantitative 0.8 mg/dL (0.00-0.90) Pro-B-Type Natriuretic Peptide 136 pg/mL (0-125) H Total Protein 6.7 G/DL (6.4-8.2) Albumin 2.8 G/DL (3.4-5.0) L Globulin 3.9 g/dL Albumin/Globulin Ratio 0.7 (1.0-2.7) L Vancomycin Level Trough Pending Current Medications Medications (Trade) Dose Ordered Sig/Last Route PRN Reason Start Time Stop Time Status Last Admin Dose Admin Acetaminophen (Tylenol) 650 mg Q4H PRN NG for fever >100.3 10/18/18 01:30 11/17/18 01:29 10/23/18 20:33 Acetaminophen (Tylenol) 650 mg Q4H PRN RECTAL Prn Headache/Temp > 101 10/17/18 07:30 11/16/18 07:29 Acetylcysteine (Mucomyst) 100 mg TIDRT N 10/19/18 13:00 11/15/18 12:59 10/26/18 07:21 Albuterol/ Ipratropium (Albuterol/ Ipratropium) 3 ml Q6HRT N 10/19/18 13:00 10/26/18 12:59 10/26/18 07:20 Dextrose (Dextrose 50%) 25 ml Q30M PRN IV Hypoglycemia 10/19/18 10:45 11/18/18 10:44 Dextrose (Dextrose 50%) 50 ml Q30M PRN IV Hypoglycemia 10/19/18 10:45 11/18/18 10:44 Famotidine (Pepcid) 20 mg BID GT 10/19/18 09:00 11/18/18 08:59 10/26/18 09:12 Heparin Sodium (Porcine) (Heparin 5000 units/ml) 5,000 units EVERY 12 HOURS SUBQ 10/17/18 09:00 11/10/18 20:59 10/26/18 09:13 Insulin Aspart (NovoLOG) EVERY 6 HOURS SUBQ 10/19/18 12:00 11/18/18 11:59 10/26/18 11:47 Levofloxacin (Levaquin) 750 mg DAILY GT 10/22/18 09:00 10/29/18 08:59 10/26/18 09:11 Meropenem 500 mg/ Sodium Chloride 55 ml @ 110 mls/hr Q8H IVPB 10/24/18 15:00 10/29/18 14:59 10/26/18 07:39 Metoclopramide HCl (Reglan) 10 mg Q8H PRN IVP Nausea & Vomiting 10/19/18 09:45 11/18/18 09:44 10/19/18 09:58 Metoprolol Tartrate (Lopressor) 25 mg Q12HR ORAL 10/18/18 09:00 11/17/18 08:59 10/25/18 20:23 Potassium Chloride (K-Dur) 40 meq TWICE A DAY GT 2/18/19 09:00 11/15/18 17:59 10/26/18 09:11 Vancomycin HCl (Vanco rx to dose) 1 ea DAILY PRN MISC Per rx protocol 10/19/18 11:15 11/18/18 11:14 Vancomycin HCl 1 gm/Dextrose 275 ml @ 183.708 mls/hr Q12HR@0100,1300 IVPB 10/20/18 01:00 10/30/18 00:59 10/26/18 01:37 Lucas Bravo MD Oct 26, 2018 12:39
--- NOTE | 2018-10-26 13:31 | NUR ---
*-* DISCHARGE PLANNED *-* PATIENT IS DISCHARGE TO: [facility] ROOM# 15-B RETIREMENT T:[phone] ASK FOR ADA FOR NURSE TO NURSE REPORT [facility] HAS BEEN ARRANGED FOR ULTRASOUND TECH AT 330PM S/W DONNELL [id number] *-* FAMILY HAS BEEN NOTIFIED SPOKE TO DAUGHTER DONELL AND SHE IS AWARE OF HER FATHER DC *-*
--- NOTE | 2018-10-26 13:53 | Nephrology Progress Note ---
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 Plan reviewed labs today K and Phos IV as needed continue the rest DNAR / DNI Comfort care? Poor prognosis DC planning? Subjective ROS Limited/Unobtainable: No Constitutional: Reports: malaise, weakness Objective Objective Last 24 Hour Vital Signs Date Time Temp Pulse Resp B/P (MAP) Pulse Ox O2 Delivery O2 Flow Rate FiO2 10/26/18 13:30 T-piece 10/26/18 13:30 T-piece 10/26/18 13:30 96 T-piece 8.0 30 10/26/18 13:30 T-piece 8.0 30 10/26/18 12:00 6.0 30 10/26/18 12:00 100 10/26/18 12:00 97.4 105 20 106/70 (82) 97 10/26/18 09:00 90 114/73 10/26/18 09:00 Trach Collar 8.0 Trach Collar 8.0 10/26/18 08:00 90 10/26/18 08:00 6.0 30 10/26/18 08:00 97.7 90 18 114/73 (87) 96 10/26/18 07:31 92 20 100 T-piece 8.0 30 10/26/18 07:23 95 T-piece 8.0 30 10/26/18 07:23 T-piece 8.0 30 10/26/18 07:21 94 18 95 T-piece 8.0 30 10/26/18 04:27 6.0 30 10/26/18 04:25 97.2 84 20 125/79 (94) 100 10/26/18 03:25 83 10/26/18 01:40 98 20 100 T-piece 8.0 30 10/26/18 01:38 T-piece 8.0 30 10/26/18 01:38 98 T-piece 8.0 30 10/26/18 01:30 92 20 95 T-piece 8.0 30 10/26/18 00:05 6.0 30 10/26/18 00:02 98.0 89 20 115/67 (83) 100 10/25/18 23:29 92 10/25/18 21:00 Trach Collar 8.0 Trach Collar 8.0 10/25/18 20:49 88 10/25/18 20:23 99 113/71 10/25/18 20:00 98.1 96 20 113/71 (85) 100 10/25/18 20:00 6.0 30 10/25/18 19:45 99 20 99 T-piece 8.0 30 10/25/18 19:43 98 T-piece 8.0 30 10/25/18 19:43 T-piece 8.0 30 10/25/18 19:34 97 20 98 T-piece 8.0 30 10/25/18 19:30 97 18 T-piece 8.0 30 10/25/18 16:00 6.0 30 10/25/18 16:00 92 10/25/18 16:00 98.5 65 20 108/59 (75) 95 Intake and Output 10/25/18 10/26/18 19:00 07:00 Output Total 650 ml Balance -650 ml Output Urine Total 650 ml # Voids 3 Laboratory Tests 10/26/18 06:27: White Blood Count 6.4, Red Blood Count 2.97L, Hemoglobin 9.6L, Hematocrit 29.9L , Mean Corpuscular Volume 101H, Mean Corpuscular Hemoglobin 32.3H, Mean Corpuscular Hemoglobin Concent 32.1, Red Cell Distribution Width 20.0H, Platelet Count 244, Mean Platelet Volume 6.1L, Neutrophils (%) (Auto) 43.3L, Lymphocytes (%) (Auto) 46.9H, Monocytes (%) (Auto) 8.0, Eosinophils (%) (Auto) 0.9, Basophils (%) (Auto) 0.9, Sodium Level 137, Potassium Level 4.3, Chloride Level 100, Carbon Dioxide Level 30, Anion Gap 7, Blood Urea Nitrogen 11, Creatinine 0.7, Estimat Glomerular Filtration Rate > 60, Glucose Level 161H, Calcium Level 9.6, Phosphorus Level 3.6, Magnesium Level 2.1, Total Bilirubin 0.3, Aspartate Amino Transf (AST/SGOT) 23, Alanine Aminotransferase (ALT/SGPT) 26, Alkaline Phosphatase 110, C-Reactive Protein, Quantitative 0.8, Pro-B-Type Natriuretic Peptide 136H, Total Protein 6.7, Albumin 2.8L, Globulin 3.9, Albumin /Globulin Ratio 0.7L 10/26/18 12:07: Vancomycin Level Trough 21.8H Height (Feet): 5 Height (Inches): 7.00 Weight (Pounds): 150 General Appearance: no apparent distress, lethargic Cardiovascular: tachycardia Respiratory/Chest: decreased breath sounds Abdomen: distended Objective no change Clint Piper MD Oct 26, 2018 13:53
--- NOTE | 2018-10-26 14:05 | NUR ---
NURSE NOTES: Report Given to Ada/ Infection control at [facility] [phone].
--- NOTE | 2018-10-26 15:46 | NUR ---
NURSE NOTES: Rectal tube removed, bed bath and oral care given. Sacral dressing changed and picture was taken. G-tube intact, patent and dressing is changed. Castrejon catheter intact and draining well. No acute distress/SOB noted. No facial grimace noted. Kept dry, clean and comfortable. Awaiting for transportation. Will continue plan of care.
[2018-10-26 16:00] VITALS: BP 107/71
--- NOTE | 2018-10-26 17:57 | NUR ---
NURSE NOTES: Patient is in stable condition. No acute distress/SOB noted. Vital signs stable. Patient is discharged with [facility] ambulance.
[2018-10-26] MEDS ORDERED: 1/2 NS 1000ml IV ONE (18:17)
--- NOTE | 2018-10-27 15:03 | Discharge Summary ---
Discharge Summary Discharge Summary _ DATE OF ADMISSION: 10/11/2018 DATE OF DISCHARGE: 10/26/2018 DISCHARGED BY: Dr. Lula Smyth CONSULTANTS: Dr. Clint Estrada [facility] HOSPITAL COURSE: Patient is a 53-year-old male, who presented to ED via EMS for altered level of consciousness. Apparently there was some respiratory distress and oxygen saturation was 87%. Patient was recently discharged from [facility] after bilateral cerebral infarction. Patient has tracheostomy tube G-tube.. His blood pressure was low and he was given IV fluid bolus. He had IV line established in the field. On arrival to ED, blood pressure was 92/58, pulse rate 147, temperature was 102.8 F. The patient was hooked on a ventilator. Patient was tachycardic. She had poor IV access and a central line was inserted to the right femoral. Blood work showed leukocytosis, hemoglobin was 10, hematocrit 30 electrolytes were normal. Creatinine was elevated to 2.0, BUN 63. Lactic acid was 5. Urine showed infection. EKG showed sinus tachycardia. Chest x-ray showed bilateral infiltrates more on the right. He was started on IV pressors. He was admitted to ICU. Dr. Jordy Lou was consulted. Patient came in with POL that states DNR. CODE STATUS was clarified with family. He was given stress dose steroids. He was noted with multiple wounds. Surgery was consulted. He was given wound care. Continued on G-tube feedings. Workup showed iron deficiency. He was given Venofer. ID was consulted. Patient was with sepsis. He was given vancomycin and Zosyn pending culture results. Parent Trainer was consulted. He was continued on vasopressin. Echocardiogram done showed wall motion abnormalities in the septal wall. LVEF approximately 45 %. EKG on admission showed sinus tachycardia at a rate of 150 with prolonged QT interval. He was sinus rhythm on the monitor. He was continued on metoprolol. Linen Checker was consulted for electrolyte abnormalities and fluid management. Urine culture showed growth of E. coli. Vancomycin was discontinued. Patient was continued on Zosyn. He was eventually taken off IV pressors. Blood culture showed coagulase-negative staph. He was restarted on vancomycin. Repeat blood cultures were obtained. Repeat urine culture with growth of ESBL E. coli. Blood culture did not isolate any growth. HIV screen was negative. Hepatitis panel negative. Per family, patient is DNR/DNI, but to continue treatment for now. If unimproved in 3 months, family will reconsider transitioning to [facility]. He is eventually discharged back to [facility]. FINAL DIAGNOSES: Severe sepsis/septic shock due to pneumonia and UTI ESBL E. coli UTI Bacteremia with coagulase negative staph Pneumonia Acute on chronic respiratory failure with hypoxemia Acute kidney injury Hypokalemia Dysphagia on feeding via G-tube Anemia Lactic acidosis Diarrhea, C. difficile negative Lactic acidosis DNR Left buttock partial-thickness wound, right gluteal cleft partial-thickness pressure injury, present on admission Encephalopathy CVA with severe debilitation Sinus tachycardia DISPOSITION: Patient was discharged back to [facility]. DISCHARGE MEDICATIONS: Refer to Discharge Medication List. I have been assigned to complete a discharge summary on this account, I was not involved with the patient's management. Trinity Townsend NP Oct 27, 2018 15:03
== END 2018-10-26 17:57 | DRG 871 ==
LOC: EDBD 14:09 → EMR 14:24 → ICU 14:38 → EDBEDREQ 15:51 → ICU 17:00 → 2W 10-15 05:05 → 2E 10-17 06:39
PROC: 5A1935Z Respiratory Ventilation, Less than 24 Consecutive Hours (ICD-10-PCS; principal; 2018-10-11)
PROC: 06HM33Z Insertion of Infusion Device into Right Femoral Vein, Percutaneous Approach (ICD-10-PCS; principal; 2018-10-11)
DX: A41.51 Sepsis due to Escherichia coli [E. coli] (principal); R65.21 Severe sepsis with septic shock; J96.21 Acute and chronic respiratory failure with hypoxia; J18.9 Pneumonia, unspecified organism; I63.9 Cerebral infarction, unspecified; N17.9 Acute kidney failure, unspecified; G93.40 Encephalopathy, unspecified; D68.9 Coagulation defect, unspecified; I50.20 Unspecified systolic (congestive) heart failure; Z93.0 Tracheostomy status; Z93.1 Gastrostomy status; Z51.5 Encounter for palliative care; Z66 Do not resuscitate; E87.6 Hypokalemia; D50.9 Iron deficiency anemia, unspecified; R13.10 Dysphagia, unspecified; L89.329 Pressure ulcer of left buttock, unspecified stage; L89.319 Pressure ulcer of right buttock, unspecified stage
CPT/HCPCS: 36415; 36600; 71045; 80048; 80053; 80076; 80202; 81003; 82270; 82533; 82550; 82607; 82728; 82746; 82803; 82962; 82977; 83020; 83036; 83540; 83550; 83605; 83735; 83880; 84100; 84443; 84484; 84550; 85007; 85025; 85044; 85060; 85610; 85660; 85730; 86140; 86703; 86705; 86709; 86803; 87040; 87081; 87086; 87181; 87324; 87340; 93005; 93306; 93970; 94002; 94003; 94640; 94664; 94760; 96365; 96367; 96368; 99291; J1815; J2250; J2765; J7620; J8499

== ENCOUNTER 2018-11-19 22:41 | Inpatient (IN) | payer OTHER ==
[~2018-11-19] VITALS: Ht 172.7 cm; Wt 63.5 kg
[~2018-11-19 22:41] MED LIST: ASPIR 8181 MG GT; ATORVASTATIN CA40 MG GT; HEPARIN SO5000 UNIT2 SUBQ; PANTOPRAZOLE SO40 MG GT; VITAMIN D400 INTLU GT
[2018-11-19 22:45] VITALS: BP 150/68
[2018-11-19] MEDS ORDERED: Albuterol ud Inhalation HHN ONE (22:45)
--- NOTE | 2018-11-19 22:45 | NUR ---
ER Nurse Note: [facility] that started around 2300 at 11/19. Per EMS, pt had O2 sat of mid 80% on 4L. Pt was being bagged via trach. Pt a&ox0, non verbal, unable to assess eye function, cannot open eyes. Pt has trach, on a vent. Pt has dependent edema on right arm and hand. Pt contracted upper and lower extremities. G-tube in upper abd, clamped and secured at 5cm. ERMD at pt side; will continue to montior.
[2018-11-19 22:58] LABS: APPEARANCE,URINE CLEAR; BILIRUBIN, URINE NEGATIVE (NEGATIVE); COLOR,URINE PALE YELLOW; GLUCOSE, URINE (UA) NEGATIVE (NEGATIVE); HEMATOCRIT 26.5 % (42.0-52.0); HEMOGLOBIN 8.8 G/DL (14.2-18.0); KETONES,URINE NEGATIVE (NEGATIVE); LEUKOCYTE ESTERASE ,URINE NEGATIVE (NEGATIVE); MEAN CORPUSCULAR VOLUME 98 FL (80-99); NITRITE,URINE NEGATIVE (NEGATIVE); PH,URINE 6.5 (4.5-8.0); PLATELET COUNT 79 K/UL (150-450); PROTEIN,URINE NEGATIVE (NEGATIVE); RED BLOOD COUNT 2.71 M/UL (4.70-6.10); RED CELL DISTRIBUTION WIDTH 18.2 % (11.6-14.8); UROBILINOGEN,URINE NORMAL MG/DL (0.0-1.0); WHITE BLOOD COUNT 13.4 K/UL (4.8-10.8)
[2018-11-19] MEDS ORDERED: Albuterol ud Inhalation ONE (23:01)
[2018-11-19 23:12] LABS: ANION GAP 9 mmol/L (5-15); BLOOD UREA NITROGEN 31 mg/dL (7-18); CALCIUM 10.5 MG/DL (8.5-10.1); CARBON DIOXIDE 29 MMOL/L (21-32); CHLORIDE 99 MMOL/L (98-107); CREATININE 0.7 MG/DL (0.55-1.30); POTASSIUM 4.7 MMOL/L (3.5-5.1); SODIUM 137 MMOL/L (136-145)
[2018-11-19 23:25] LABS: ALANINE AMINOTRANSFERASE 90 U/L (12-78); ALBUMIN 2.2 G/DL (3.4-5.0); ALBUMIN/GLOBULIN RATIO 0.4 (1.0-2.7); ALKALINE PHOSPHATASE 115 U/L (46-116); ASPARTATE AMINO TRANSFERASE 52 U/L (15-37); BILIRUBIN,TOTAL 0.2 MG/DL (0.2-1.0); CKMB 39.4 NG/ML (0.0-3.6); CREATINE KINASE 144 U/L (26-308)
[2018-11-19] MEDS ORDERED: MIRALAX17 G2 ORAL (23:34)
[2018-11-19] MEDS ORDERED: LIPITOR80 MG ORAL (23:34)
[2018-11-19] MEDS ORDERED: Piperacillin/Tazobactam 3.375 GM in NS 110 ML IVPB ONE (23:45)
[2018-11-20] VITALS (52 sets, daily range): BP systolic 79–157; BP diastolic 47–79
--- NOTE | 2018-11-20 00:45 | NUR ---
ER Nurse Note: Pt BP avg 80/60; ERMD aware. 4L of NS given, minimal change. Central line inserted by Dr. Adhikari on right IJ triple lumen. ERMD ordered Norepinephrine; currently infusing starting at 8mcg/min per protocol; will monior and titrate if needed. PRN suction pt. All safety measures met; will continue to montior.
--- NOTE | 2018-11-20 00:45 | NUR ---
Note undone in EDM - 11/20/18 at 0516 by [email or web address] ER Nurse Note: [facility] resp distress reported by the staff at [facility] that started around 2300 at 3/23. Per EMS, pt had O2 sat of mid 80% on 4L. Pt was being bagged via trach. Pt a&ox0, non verbal, unable to assess eye function, cannot open eyes. Pt has trach, on a vent. Pt has dependent edema on right arm and hand. Pt contracted upper and lower extremities. G-tube in upper abd, clamped and secured at 5cm. ERMD at pt side; will continue to geovani.
--- NOTE | 2018-11-20 00:57 | Emergency Room Report ---
History of Present Illness General Chief Complaint: Dyspnea/Respdistress Source: Medical Record, EMS Present Illness HPI This is an unfortunate 53-year-old male from a [facility]. He has multiple medical problems including CVA, anoxic brain injury, respiratory failure with tracheostomy. He presents with chief complaint of rest or distress hypoxia. Onset just prior to arrival. Per [facility] note, he had respiratory distress and hypoxia. Per EMS, on arrival he was saturating at mid 80 percentile on 4 L oxygen blow-by. EMS bagged him and oxygenation came up. No other history from this patient because his unable to give a history. Allergies: Coded Allergies: No Known Allergies (Unverified , 10/11/18) Patient History Past Medical History: see triage record, old chart reviewed Past Surgical History: other Pertinent Family History: none Social History: Denies: smoking Immunizations: UTD Reviewed Nursing Documentation: PMH: Agreed; PSxH: Agreed Nursing Documentation-PMH Hx Cardiac Problems: Yes - cerebral infarction Hx Hypertension: Yes Hx COPD: Yes - Respiratory failure,Tracheostomy, PNA Hx Diabetes: Yes Hx Cancer: No Hx Gastrointestinal Problems: Yes - G Tube, dyspphagia, GERD, hyperlipiemia Hx Cerebrovascular Accident: Yes Review of Systems Respiratory: Reports: cough, shortness of breath All Other Systems: limited - Secondary to condition Physical Exam Vital Signs Date Time Temp Pulse Resp B/P (MAP) Pulse Ox O2 Delivery O2 Flow Rate FiO2 11/19/18 22:41 98.1 114 20 150/68 80 Ambu-Bag 11/19/18 22:50 60 vitals with tachycardia. Blood pressure running systolic 70s. Sp02 EP Interpretation: abnormal General Appearance: severe distress, thin, Chronically Ill Head: normocephalic, atraumatic Eyes: bilateral eye PERRL, bilateral eye EOMI ENT: hearing grossly normal, dry mucus membranes Neck: full range of motion, supple, no meningismus, tracheotomy - Tracheostomy with thick sputum Respiratory: chest non-tender, respiratory distress, decreased breath sounds, accessory muscle use, crackles, rhonchi Cardiovascular #1: regular rate, rhythm, no murmur, tachycardia Gastrointestinal: normal bowel sounds, non tender, no mass, no organomegaly, no bruit, non-distended Musculoskeletal: other - Contracted Skin: warm/dry, other - Warm to the touch Procedures Critical Care Time Critical Care Time Critical care is mandated in this patient who presented with septic shock from pneumonia. Patient require my urgent intervention to attenuate the risks of metabolic collapse which may lead to cardiovascular collapse and . Critical care time is 35 minutes excluding any reportable procedure. Critical care time included evaluation, multiple reevaluation, looking at old charts, interpreting laboratory and diagnostic data, discussing case with patient and family and consultants, and charting. Central Line Central Line : Consent: Emergent Central Line Lumen: triple Maximal Sterile Barrier Tech: yes cap, yes mask, yes sterile gown, yes sterile gloves, yes large sterile sheet, yes hand hygiene, yes chlorhexidine prep Central Line Postion: internal jugular (R) Complications: none Central Line Post Position: sutured, good blood return, position confirmed w / CXR Attempts: One Patient Tolerated: Well Complications: None Medical Decision Making Diagnostic Impression: Primary Impression: Septic shock Additional Impressions: Healthcare-associated pneumonia LUZ MARIA (acute kidney injury) Anemia Qualified Codes: D64.9 - Anemia, unspecified Acute metabolic encephalopathy Lactic acid acidosis ER Course Patient presents with septic shock from healthcare acquired pneumonia. After several liters of fluid blood pressure remained low side but a central line and put him on Levothroid. This brought up the blood pressure. Wide spectrum antibiotics given. Patient will be admitted to the ICU. I discussed the case with Dr. Flores who will admit. Lab Results Impression labs with elevated lactic acid EKG Diagnostic Results Rate: tachycardiac Rhythm: NSR ST Segments: other - NSST changes Rhythm Strip Diag. Results EP Interpretation: yes Rate: 104 Rhythm: NSR, no PVC's, no ectopy Chest X-Ray Diagnostic Results Chest X-Ray Diagnostic Results #1: Chest X-Ray Ordered: Yes # of Views/Limited/Complete: 1 View Indication: Shortness of Breath EP Interpretation: Yes Interpretation: no effusion, no pneumothorax, other - b/l infiltrates worse on right Impression: Other - b/l infiltrates Electronically Signed by: Iván Sofia MD Chest X-Ray Diagnostic Results #2: Chest X-Ray Ordered: Yes # of Views/Limited/Complete: 1 View Indication: Shortness of Breath EP Interpretation: Yes Interpretation: no effusion, no pneumothorax, other - better aeration. s/p TLC. no ptx Impression: Other - s/p central line. no ptx Electronically Signed by: Iván Sofia MD Last Vital Signs Date Time Temp Pulse Resp B/P (MAP) Pulse Ox O2 Delivery O2 Flow Rate FiO2 11/19/18 23:09 115 32 100 Mechanical Ventilator 60 11/19/18 22:45 98.1 150/68 Status: improved Disposition: ADMITTED INPATIENT Condition: Critical Referrals: Matt Flores MD (PCP) Iván Sofia MD Nov 20, 2018 00:57
--- NOTE | 2018-11-20 02:00 | NUR ---
ER Nurse Note: Pt on 16mcg/min; BP at 103/61. Pt remains in same condition. Will continue to montior; awaiting orders and awaiting bed in ICU
--- NOTE | 2018-11-20 03:27 | NUR ---
ER Nurse Note: Pt asleep, calm. Pt a&ox0, unable to open eyes, not verbal responds to pain. Pt has a conrad cath, draining well; central line on the right side of neck, infusing levo at 16 mcg/min, BP 99/58; has a trach, mechanially ventalated. Pt is suctioned as needed. Pt has redness on the sacral area, no open wound, picture uploaded. All safety measures met; will continue to montior.
--- NOTE | 2018-11-20 04:53 | NUR ---
ER Nurse Note: Pt on Striker bed; bed given in ICu but cannot transport until 0730. Pt calm, asleep. Central line in place; infusing 16 mcg/min, BP 102/56. Bp have been averaging low 100 systolic to mid 50 diastolic. Pt g-tube in place and clamped, conrad cath patent and draining. Suctioning pt; no sign of aspiration and acute distress. Bed in lowest postiion, will conitnue to [facility].
--- NOTE | 2018-11-20 05:51 | NUR ---
ER Nurse Note: Called Dr Flores for orders; unable to get in contact but left a message. Awaiting call back. Titrated to 20mcg/min, BP 123/63. Will continue to monitor.
--- NOTE | 2018-11-20 07:12 | NUR ---
ER Nurse Note: Pt on 20 mcg/min levo, BP 112/60. Pt no signs of distress. Pt a&ox0; pt clean, dry, suctioned. Report given to KOLE Busch for continuity of care.
--- NOTE | 2018-11-20 07:41 | NUR ---
ED Nurse Note: report given to KOLE Cormier.
--- NOTE | 2018-11-20 07:42 | NUR ---
ED Nurse Note: RT informed about pt's transfer.
--- NOTE | 2018-11-20 08:01 | NUR ---
ED Nurse Note: pt left department in stable condition with 1 RN, 2 internet technology manager, 1 RT. So raymond received pt.
--- NOTE | 2018-11-20 08:30 | NUR ---
NURSE NOTES: Received the patient from Eze Wilkes Rn. Patient nonverbal, responds to pain, resting in bed with eyes closed. Patient noted with trachMona 6.0, to vent, settings: AC18, TV 450, FIO2 60%, O2 sat 98%. No acute distress noted. SR noted on the monitor. Patient noted with Left upper arm G-tube. Castrejon cath intact and patent, draining yellow urine by gravity. Patient noted with sacral redness. Right EJ 18G and Right IJ TLC intact, running Levophed at 20mcg/min, VSS. Called Dr. Flores for admitting orders. Addendum: 11/24/18 at 0755 by EDGARDO KUMAR RN G-tube in Left upper quadrant.
[2018-11-20] MEDS ORDERED: Amikacin Rx to dose MISC PRN (09:00)
[2018-11-20] MEDS ORDERED: Miralax 17gm pkt ORAL PRN (09:15)
[2018-11-20] MEDS: Pantoprazole Inj IV SCH (10:11)
--- NOTE | 2018-11-20 10:30 | NUR ---
NURSE NOTES: Oral care and conrad cath care performed. Patient tolerated well.
[2018-11-20 11:03] LABS: HEMATOCRIT 23.4 % (42.0-52.0); HEMOGLOBIN 7.5 G/DL (14.2-18.0); MEAN CORPUSCULAR VOLUME 99 FL (80-99); PLATELET COUNT 88 K/UL (150-450); RED BLOOD COUNT 2.36 M/UL (4.70-6.10); RED CELL DISTRIBUTION WIDTH 18.9 % (11.6-14.8); WHITE BLOOD COUNT 12.9 K/UL (4.8-10.8)
[2018-11-20 11:12] LABS: APPEARANCE,URINE CLEAR; BILIRUBIN, URINE NEGATIVE (NEGATIVE); COLOR,URINE PALE YELLOW; GLUCOSE, URINE (UA) NEGATIVE (NEGATIVE); KETONES,URINE NEGATIVE (NEGATIVE); LEUKOCYTE ESTERASE ,URINE NEGATIVE (NEGATIVE); NITRITE,URINE NEGATIVE (NEGATIVE); PH,URINE 5 (4.5-8.0); PROTEIN,URINE NEGATIVE (NEGATIVE); UROBILINOGEN,URINE NORMAL MG/DL (0.0-1.0)
[2018-11-20] MEDS: NovoLOG Insulin Flexpen SUBQ SCH ×2 (12:00→17:22)
--- NOTE | 2018-11-20 12:11 | NUR ---
CASE MANAGEMENT: REVIEW 53/M BIBA FROM [facility] CC: RESP DISTRESS SI: PNA . SEPSIS T 98.1 HR 130 RR 40 BP 86/50 SAT 100% MECH VENT FIO2 60 WBC 13.4 H/H 8.8/26.5 BUN 31 IS: ALBUTEROL HHN X1 LEVOPHED IV X1 ZOSYN IV X1 LEVOFLOXACIN IV X1 PATIENT ADMITTED TO ICU 11/19/2018 DCP: PATIENT IS FROM [facility]
[2018-11-20] MEDS ORDERED: Amikacin 950 MG in NS 110 ML IV SCH (12:30)
--- NOTE | 2018-11-20 12:30 | NUR ---
NURSE NOTES: Patient was turned and repositioned. VSS. Patient resting in bed comfortably.
[2018-11-20] MEDS: Lacri-Lube Opth Oint 3.5gm BOTH EYES SCH ×2 (12:32→17:24)
[2018-11-20 12:33] LABS: ANION GAP 8 mmol/L (5-15); BLOOD UREA NITROGEN 18 mg/dL (7-18); CALCIUM 8.8 MG/DL (8.5-10.1); CARBON DIOXIDE 27 MMOL/L (21-32); CHLORIDE 106 MMOL/L (98-107); CHOLESTEROL 84 MG/DL (< 200); CREATININE 0.5 MG/DL (0.55-1.30); HDL CHOLESTEROL 9 MG/DL (40-60); POTASSIUM 4.5 MMOL/L (3.5-5.1); SODIUM 141 MMOL/L (136-145); TRIGLYCERIDES 176 MG/DL (30-150)
--- NOTE | 2018-11-20 12:50 | NUR ---
NURSE NOTES: blood collected and sent down to lab
--- NOTE | 2018-11-20 12:58 | Pulmonolgy Critical Care Note ---
Critical Care - Asmt/Plan Problems: (1) Cerebral infarction (2) Feeding by G-tube (3) Septic shock (4) Healthcare-associated pneumonia (5) Acute metabolic encephalopathy (6) Anemia Respiratory: monitor respiratory rate, adjust FIO2, CXR Cardiac: continue to monitor HR/BP Renal: F/U I&O, keep IV fluid, check electrolytes Infectious Disease: check cultures, add antibiotics Gastrointestinal: hold feedings Endocrine: monitor blood sugar, continue sliding scale insulin Hematologic: monitor H/H, transfuse if hgb<8.5 Neurologic: PRN Ativan, keep patient comfortable Affect: PRN ativan Prophylaxis: Protonix, Heparin Time Spent (Minutes): 40 Notes Reviewed: 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 labor relations Discussed with: nurses, consultants, case aide, family member Critical Care - Objective Last 24 Hour Vital Signs Date Time Temp Pulse Resp B/P (MAP) Pulse Ox O2 Delivery O2 Flow Rate FiO2 11/20/18 12:00 98.5 98 20 112/60 (77) 100 11/20/18 12:00 60 11/20/18 12:00 Mechanical Ventilator 11/20/18 11:30 100 19 110/60 (77) 100 11/20/18 11:15 98 20 112/60 (77) 100 11/20/18 11:00 95 14 111/52 (71) 100 11/20/18 10:48 Mechanical Ventilator 11/20/18 10:45 94 21 104/60 (75) 100 11/20/18 10:30 93 18 106/67 (80) 100 11/20/18 10:15 93 20 111/63 (79) 100 11/20/18 10:00 92 19 116/65 (82) 100 11/20/18 09:45 92 17 116/68 (84) 100 11/20/18 09:30 93 19 60 11/20/18 09:30 83 18 157/67 (97) 100 11/20/18 09:00 98 16 88/47 (61) 100 11/20/18 08:30 90 18 107/56 (73) 100 11/20/18 08:15 90 19 94/75 (81) 100 11/20/18 08:00 97.7 90 19 117/60 100 Mechanical Ventilator 60 11/20/18 08:00 89 11/20/18 08:00 98.3 89 19 105/57 (73) 100 11/20/18 07:29 60 11/20/18 07:00 112/60 11/20/18 06:55 97.8 93 20 115/60 100 Mechanical Ventilator 11/20/18 06:45 114/63 11/20/18 06:30 90 19 60 11/20/18 06:30 115/60 11/20/18 06:15 112/62 11/20/18 06:00 112/63 11/20/18 05:45 114/60 11/20/18 05:30 123/63 11/20/18 05:24 95 30 60 11/20/18 05:20 90 19 99/60 100 Mechanical Ventilator 11/20/18 05:15 99/59 11/20/18 05:00 93/60 11/20/18 04:45 98/59 11/20/18 04:30 96/53 11/20/18 04:26 Mechanical Ventilator 11/20/18 04:15 96/50 11/20/18 04:00 99/59 11/20/18 03:45 102/59 11/20/18 03:30 101/62 11/20/18 03:30 110 30 60 11/20/18 03:20 98.1 94 17 102/61 100 Mechanical Ventilator 11/20/18 03:15 100/57 11/20/18 03:00 102/61 11/20/18 02:45 101/62 11/20/18 02:30 107/60 11/20/18 02:20 98.0 94 18 107/60 99 Mechanical Ventilator 11/20/18 02:15 96/59 11/20/18 02:00 103/61 11/20/18 01:45 78/56 11/20/18 01:30 102/58 11/20/18 01:30 105 32 60 11/20/18 01:20 98.0 103 22 96/70 99 Mechanical Ventilator 11/20/18 01:15 90/52 11/20/18 01:00 103/52 11/20/18 00:55 94/58 11/20/18 00:50 86/50 11/19/18 23:09 115 32 100 Mechanical Ventilator 60 11/19/18 23:00 111 30 98 Mechanical Ventilator 60 11/19/18 22:52 130 40 60 11/19/18 22:50 130 40 Mechanical Ventilator 60 11/19/18 22:45 98.1 90 20 150/68 100 Mechanical Ventilator 11/19/18 22:45 114 20 Mechanical Ventilator 11/19/18 22:41 98.1 114 20 150/68 80 Ambu-Bag Status: obtunded Condition: critical Neck: full ROM Lungs: clear Heart: HR/BP stable Abdomen: soft, active bowel sounds Extremities: edema Micro: Microbiology Date/Time Source Procedure Growth Status 11/20/18 00:15 Rectum Received Accucheck: 154 Critical Care - Subjective ROS Limited/Unobtainable: Yes Interval Events: 53-year-old male with hx of CVA, trach, PEG, [facility] a [facility] presented to ER with chief complaint of hypoxia. Per [facility] note, he had respiratory distress and hypoxia. Per EMS, on arrival he was saturating at mid 80 percentile on 4 L oxygen blow-by. EMS bagged him and oxygenation came up. No other history from this patient because his unable to give a history. He had extensive bilateral infiltrate and admitted to ICU for further treatment. Condition: critical EKG Rhythm: Sinus Rhythm FI02: 60 Vent Support Breath Rate: 18 Vent Support Mode: AC Vent Tidal Volume: 450 Sputum Amount: Small PIP: 20 I&O: Intake and Output 11/19/18 11/20/18 19:00 07:00 Intake Total 8010 ml Balance 8010 ml IV Total 8010 ml # Voids 1 CXR: RML infiltrate Labs: Laboratory Tests Test 11/19/18 22:40 11/20/18 09:40 11/20/18 09:46 White Blood Count 13.4 K/UL (4.8-10.8) H 12.9 K/UL (4.8-10.8) H Red Blood Count 2.71 M/UL (4.70-6.10) L 2.36 M/UL (4.70-6.10) L Hemoglobin 8.8 G/DL (14.2-18.0) L 7.5 G/DL (14.2-18.0) L Hematocrit 26.5 % (42.0-52.0) L 23.4 % (42.0-52.0) L Mean Corpuscular Volume 98 FL (80-99) 99 FL (80-99) Mean Corpuscular Hemoglobin 32.5 PG (27.0-31.0) H 31.8 PG (27.0-31.0) H Mean Corpuscular Hemoglobin Concent 33.3 G/DL (32.0-36.0) 32.1 G/DL (32.0-36.0) Red Cell Distribution Width 18.2 % (11.6-14.8) H 18.9 % (11.6-14.8) H Platelet Count 79 K/UL (150-450) L 88 K/UL (150-450) L Mean Platelet Volume 6.8 FL (6.5-10.1) 7.8 FL (6.5-10.1) Neutrophils (%) (Auto) % (45.0-75.0) % (45.0-75.0) Lymphocytes (%) (Auto) % (20.0-45.0) % (20.0-45.0) Monocytes (%) (Auto) % (1.0-10.0) % (1.0-10.0) Eosinophils (%) (Auto) % (0.0-3.0) % (0.0-3.0) Basophils (%) (Auto) % (0.0-2.0) % (0.0-2.0) Differential Total Cells Counted 100 100 Neutrophils % (Manual) 74 % (45-75) 72 % (45-75) Lymphocytes % (Manual) 21 % (20-45) 16 % (20-45) L Monocytes % (Manual) 0 % (1-10) L 2 % (1-10) Eosinophils % (Manual) 1 % (0-3) 0 % (0-3) Basophils % (Manual) 0 % (0-2) 0 % (0-2) Band Neutrophils 4 % (0-8) 10 % (0-8) H Nucleated Red Blood Cells 2 /100 WBC Platelet Estimate Decreased L Decreased L Platelet Morphology Normal Normal Polychromasia 1+ Anisocytosis 2+ 1+ Urine Color Pale yellow Pale yellow Urine Appearance Clear Clear Urine pH 6.5 (4.5-8.0) 5 (4.5-8.0) Urine Specific [place] 1.010 (1.005-1.035) 1.010 (1.005-1.035) Urine Protein Negative (NEGATIVE) Negative (NEGATIVE) Urine Glucose (UA) Negative (NEGATIVE) Negative (NEGATIVE) Urine Ketones Negative (NEGATIVE) Negative (NEGATIVE) Urine Blood Negative (NEGATIVE) 2+ (NEGATIVE) H Urine Nitrite Negative (NEGATIVE) Negative (NEGATIVE) Urine Bilirubin Negative (NEGATIVE) Negative (NEGATIVE) Urine Urobilinogen Normal MG/DL (0.0-1.0) Normal MG/DL (0.0-1.0) Urine Leukocyte Esterase Negative (NEGATIVE) Negative (NEGATIVE) Sodium Level 137 MMOL/L (136-145) 141 MMOL/L (136-145) Potassium Level 4.7 MMOL/L (3.5-5.1) 4.5 MMOL/L (3.5-5.1) Chloride Level 99 MMOL/L (98-107) 106 MMOL/L (98-107) Carbon Dioxide Level 29 MMOL/L (21-32) 27 MMOL/L (21-32) Anion Gap 9 mmol/L (5-15) 8 mmol/L (5-15) Blood Urea Nitrogen 31 mg/dL (7-18) H 18 mg/dL (7-18) Creatinine 0.7 MG/DL (0.55-1.30) 0.5 MG/DL (0.55-1.30) L Estimat Glomerular Filtration Rate > 60 mL/min (>60) > 60 mL/min (>60) Glucose Level 142 MG/DL (74-106) H 159 MG/DL (74-106) H Lactic Acid Level 4.30 mmol/L (0.4-2.0) H 1.00 mmol/L (0.4-2.0) Calcium Level 10.5 MG/DL (8.5-10.1) H 8.8 MG/DL (8.5-10.1) Total Bilirubin 0.2 MG/DL (0.2-1.0) Aspartate Amino Transf (AST/SGOT) 52 U/L (15-37) H Alanine Aminotransferase (ALT/SGPT) 90 U/L (12-78) H Alkaline Phosphatase 115 U/L (46-116) Total Creatine Kinase 144 U/L (26-308) Creatine Kinase MB 39.4 NG/ML (0.0-3.6) H Creatine Kinase MB Relative Index 27.3 Troponin I 0.000 ng/mL (0.000-0.056) Total Protein 7.3 G/DL (6.4-8.2) Albumin 2.2 G/DL (3.4-5.0) L Globulin 5.1 g/dL Albumin/Globulin Ratio 0.4 (1.0-2.7) L Hemoglobin A1c 7.1 % (4.3-6.0) H Triglycerides Level 176 MG/DL (30-150) H Cholesterol Level 84 MG/DL (< 200) LDL Cholesterol 28 mg/dL (<100) HDL Cholesterol 9 MG/DL (40-60) L Cholesterol/HDL Ratio 9.3 (3.3-4.4) H Urine RBC 0-2 /HPF (0 - 0) H Urine WBC 0 /HPF (0 - 0) Urine Squamous Epithelial Cells Occasional /LPF Urine Bacteria Occasional /HPF (NONE) Law Carter MD Nov 20, 2018 12:58
[2018-11-20 13:11] LABS: INR 1.1 (0.9-1.1)
[2018-11-20] MEDS: Piperacillin/Tazobactam 3.375 GM in D5W 110 ML IVPB SCH ×2 (14:38→21:37)
[2018-11-20 14:48] LABS: LACTATE DEHYDROGENASE 202 U/L (81-234)
--- NOTE | 2018-11-20 15:00 | NUR ---
NURSE NOTES: Patient resting in bed with eyes closed. No acute distress noted.
[2018-11-20 15:50] LABS: % IRON SATURATION 25 % (15-50); IRON 35 ug/dL (50-175); TOTAL IRON BINDING CAPACITY 141 ug/dL (250-450)
--- NOTE | 2018-11-20 17:00 | NUR ---
NURSE NOTES: No changes in condition. VSS.
--- NOTE | 2018-11-20 18:51 | NUR ---
NURSE NOTES: blood transfusion consent obtained from pt's daughter, Blanche Vargas.
--- NOTE | 2018-11-20 19:35 | NUR ---
HAND-OFF: Report given to KOLE Dalal.
--- NOTE | 2018-11-20 19:40 | NUR ---
NURSE NOTES: Received the patient from Wandy Johnson Rn. Patient nonverbal, responds to pain, resting in bed with eyes closed. In no acute distress, patient noted with trach, Shiley 6.0, to vent, settings: AC18, TV 450, FIO2 60%, PEEP 0, O2 sat 98%. No acute distress noted. SR noted on the monitor. Patient noted with Left upper abdomen G-tube. Castrejon cath intact and patent, draining yellow urine by gravity. Patient noted with sacral redness. Right EJ 18G and Right IJ TLC intact, running Levophed at 26mcg/min, NS running at 150ml/hr. Vital signs stable. Bed in low and locl position. Call light within reach. Will continue to monitor.
[2018-11-20] MEDS ORDERED: Atorvastatin 80mg tab GT SCH (21:00)
--- NOTE | 2018-11-20 21:15 | Consultation ---
DATE OF CONSULTATION: 11/20/2018 CARDIOLOGY CONSULTATION CONSULTING PHYSICIAN: Jorge A Morales M.D. REFERRING PHYSICIAN: Matt Flores M.D. REASON FOR CONSULT: Shock. HISTORY OF PRESENT ILLNESS: This is an unfortunate 53-year-old Greek male, who resides at a [facility] facility and is debilitated as a result of a prior stroke with anoxic brain injury, tracheostomy and respiratory failure. He was admitted last night with hypoxia and respiratory distress. He subsequently developed hypotension and has been on pressor support presumed to be due to a sepsis syndrome. I have been asked to assist with cardiovascular care. Records are reviewed and discussions undertaken with his daughter for the remainder of this report. PAST MEDICAL HISTORY: Includes cerebrovascular accident, chronic encephalopathy, aphasia, respiratory failure with tracheostomy, dysphagia with G-tube, chronic obstructive pulmonary disease, type 2 diabetes mellitus, hypertension, gastroesophageal reflux disease, and hyperlipidemia ALLERGIES: None. MEDICATIONS: Reviewed and reconciled. SOCIAL HISTORY: No record of prior alcohol or substance abuse. There is a heavy smoking history in the past, per daughter. FAMILY HISTORY: Noncontributory. REVIEW OF SYSTEMS: Otherwise unobtainable and all pertinent data from sources noted above is outlined above. PHYSICAL EXAMINATION: GENERAL: Presently on ventilator support by tracheostomy. VITAL SIGNS: Blood pressure 90/50, pulse 113, respirations 24, and temperature max 99. The patient is on Levophed drip 24 mcg at this time. LUNGS: Bilateral coarse breath sounds with rhonchi. HEART: Regular rhythm, rapid rate. Normal S1, S2. ABDOMEN: Soft. G-tube intact. EXTREMITIES: There is trace edema. LABORATORY DATA: Labs today notable potassium 4.7, BUN 31, and creatinine 0.7. Albumin 2.2. Troponin is 0. White count 12.9, hemoglobin 7.5. Urinalysis with no active sediment. Chest x-ray reveals infiltrates bilaterally. IMPRESSION: 1. Sepsis, shock. 2. Severe anemia. 3. Healthcare-acquired pneumonia. 4. Cerebrovascular disease with anoxic encephalopathy. 5. Ventilator-dependent respiratory failure. Critical and guarded. PLAN: 1. Discussed with the patient's daughter. She agrees with a packed red blood cell transfusion. 2. Efforts to taper pressors will follow. 3. Continue ventilator support, bronchodilators, DVT prophylaxis and antimicrobials. 4. We will make further recommendations based on clinical course. Jorge A Morales M.D. DR: JONEL JOB#: [id number] CC:
[2018-11-20] MEDS: Acetaminophen 650mg/20.3ml GT PRN (21:43)
--- NOTE | 2018-11-20 22:00 | NUR ---
NURSE NOTES: Pt's resting in bed. Noted having temp at 100.6F, Tylenol given via Gtube as ordered. Will continue to monitor.
[2018-11-21] VITALS (75 sets, daily range): BP systolic 80–117; BP diastolic 49–69
--- NOTE | 2018-11-21 00:20 | NUR ---
NURSE NOTES: Started 1 Unit of PRBC transfusion. Pt's in bed, in no acute distress. Afebrile at this time. VS stable. See report of transfusion form .
--- NOTE | 2018-11-21 03:20 | NUR ---
NURSE NOTES: Finished with PRBC transfusion, no adverse reaction noted. Pt's VS stable. See report of transfusion form. Will continue to monitor.
--- NOTE | 2018-11-21 05:58 | NUR ---
NURSE NOTES: Pt's resting in bed, eyes closed. Levophed running at 4mcg/min, BP 89/50, in no acute distress. Will continue to monitor.
[2018-11-21] MEDS: NovoLOG Insulin Flexpen SUBQ SCH ×4 (06:00→18:05)
[2018-11-21 06:02] LABS: HEMATOCRIT 22.7 % (42.0-52.0); HEMOGLOBIN 7.5 G/DL (14.2-18.0); MEAN CORPUSCULAR VOLUME 96 FL (80-99); PLATELET COUNT 54 K/UL (150-450); RED BLOOD COUNT 2.35 M/UL (4.70-6.10); RED CELL DISTRIBUTION WIDTH 17.3 % (11.6-14.8); WHITE BLOOD COUNT 8.9 K/UL (4.8-10.8)
[2018-11-21] MEDS: Piperacillin/Tazobactam 3.375 GM in D5W 110 ML IVPB SCH ×3 (06:13→22:32)
[2018-11-21] MEDS: Lacri-Lube Opth Oint 3.5gm BOTH EYES SCH ×4 (06:13→18:03)
[2018-11-21 06:40] LABS: ALANINE AMINOTRANSFERASE 47 U/L (12-78); ALBUMIN 1.5 G/DL (3.4-5.0); ALBUMIN/GLOBULIN RATIO 0.4 (1.0-2.7); ALKALINE PHOSPHATASE 96 U/L (46-116); ANION GAP 7 mmol/L (5-15); ASPARTATE AMINO TRANSFERASE 31 U/L (15-37); BILIRUBIN,TOTAL 0.7 MG/DL (0.2-1.0); BLOOD UREA NITROGEN 11 mg/dL (7-18); CARBON DIOXIDE 27 MMOL/L (21-32); CHLORIDE 108 MMOL/L (98-107); CREATININE 0.7 MG/DL (0.55-1.30); PHOSPHORUS 3.2 MG/DL (2.5-4.9); POTASSIUM 3.8 MMOL/L (3.5-5.1); SODIUM 142 MMOL/L (136-145)
--- NOTE | 2018-11-21 07:20 | NUR ---
HAND-OFF: Report given to KOLE Jules.
--- NOTE | 2018-11-21 07:38 | NUR ---
RESPIRATORY NOTE: Patient received mechanically ventilated on PB840 with current ordered vent settings. Patient has trach size 6.0 Shiley cuffed that is secured with trach tie and guard. Breath sounds are coarse bilaterally. Small amount of thin and clear blood tinge secretions were suctioned without incident. Vent alarms are functional and audible. There is an ambu bag available at the bedside and the vent is connected to a red outlet. Will continue to monitor.
[2018-11-21] MEDS ORDERED: Vitamin D 1000 IU Tab GT SCH (09:00)
--- NOTE | 2018-11-21 09:00 | NUR ---
NURSE NOTES: Patient morning medication given though right IJ, all lines are patent with blood return, patient oral care provided and repositioned with no distress noted, be at the low, head of bed elevated and call light within reach. will continue plan of care.
[2018-11-21] MEDS: Pantoprazole Inj IV SCH (09:17)
--- NOTE | 2018-11-21 10:28 | Pulmonolgy Critical Care Note ---
Critical Care - Asmt/Plan Problems: (1) Septic shock (2) Healthcare-associated pneumonia (3) Cerebral infarction (4) Feeding by G-tube (5) Acute metabolic encephalopathy (6) Anemia Respiratory: monitor respiratory rate, adjust FIO2, CXR Cardiac: continue to monitor HR/BP Renal: F/U I&O, keep IV fluid Infectious Disease: check cultures, continue antibiotics Gastrointestinal: hold feedings, other - nutrition evaluaiton Endocrine: continue sliding scale insulin Hematologic: transfuse if hgb<8.5 Neurologic: PRN Ativan, PRN Morphine, keep patient comfortable Affect: PRN ativan Prophylaxis: Protonix, SCDs Disposition: keep in ICU Time Spent (Minutes): 40 Notes Reviewed: cardio, renal Discussed with: nurses, consultants, case work aidedistillery manager - Objective Last 24 Hour Vital Signs Date Time Temp Pulse Resp B/P (MAP) Pulse Ox O2 Delivery O2 Flow Rate FiO2 11/21/18 09:52 100/54 11/21/18 09:06 106 20 40 11/21/18 08:00 40 11/21/18 07:35 103 21 40 11/21/18 07:00 103/58 11/21/18 07:00 98.8 106 22 100/58 (72) 99 11/21/18 06:30 106 22 101/58 (72) 99 11/21/18 06:15 104 21 100/54 (69) 100 11/21/18 06:04 106 21 87/50 (62) 100 11/21/18 06:00 87/50 11/21/18 06:00 105 21 87/51 (63) 100 11/21/18 05:45 106 22 89/50 (63) 99 11/21/18 05:30 108 25 88/50 (63) 100 11/21/18 05:15 108 23 88/52 (64) 99 11/21/18 05:02 110 22 40 11/21/18 05:00 88/52 11/21/18 05:00 112 20 86/51 (63) 100 11/21/18 04:45 111 18 94/51 (65) 100 11/21/18 04:30 114 20 91/52 (65) 99 11/21/18 04:28 114 20 83/50 (61) 100 11/21/18 04:25 116 22 82/51 (61) 100 11/21/18 04:22 116 20 80/52 (61) 100 11/21/18 04:18 117 21 80/56 (64) 100 11/21/18 04:15 118 19 85/52 (63) 100 11/21/18 04:00 85/52 11/21/18 04:00 98.8 120 19 98/59 (72) 100 11/21/18 04:00 60 11/21/18 04:00 106 11/21/18 04:00 Mechanical Ventilator 11/21/18 03:30 120 23 96/58 (71) 99 11/21/18 03:15 120 23 96/58 (71) 99 11/21/18 03:01 119 21 45 11/21/18 03:00 119 22 106/63 (77) 100 11/21/18 03:00 106/63 11/21/18 02:45 119 21 94/57 (69) 100 11/21/18 02:30 94/57 11/21/18 02:30 121 22 103/59 (74) 100 11/21/18 02:15 103/59 11/21/18 02:15 121 25 113/62 (79) 100 11/21/18 02:00 113/62 11/21/18 02:00 120 22 107/58 (74) 100 11/21/18 01:45 121 23 112/62 (79) 100 11/21/18 01:30 120 22 102/57 (72) 100 11/21/18 01:15 122 23 105/58 (74) 100 11/21/18 01:03 123 21 50 11/21/18 01:00 124 22 115/59 (77) 100 11/21/18 01:00 105/58 11/21/18 00:45 126 23 108/62 (77) 100 11/21/18 00:30 128 24 114/59 (77) 100 11/21/18 00:15 124 23 106/61 (76) 100 11/21/18 00:00 106/61 11/21/18 00:00 99.0 125 25 117/59 (78) 100 11/21/18 00:00 Mechanical Ventilator 11/20/18 23:45 122 24 107/61 (76) 100 11/20/18 23:30 99.0 121 23 112/60 (77) 100 11/20/18 23:15 118 24 107/61 (76) 100 11/20/18 23:00 107/61 11/20/18 23:00 118 24 101/60 (74) 100 11/20/18 22:57 99.8 11/20/18 22:45 118 24 101/57 (72) 100 11/20/18 22:30 116 19 50 11/20/18 22:30 116 28 111/57 (75) 100 11/20/18 22:15 116 21 122/67 (85) 100 11/20/18 22:00 100.6 118 33 124/58 (80) 100 11/20/18 21:46 108/53 11/20/18 21:45 116 22 107/55 (72) 100 11/20/18 21:30 117 21 108/53 (71) 100 11/20/18 21:15 118 22 109/54 (72) 100 11/20/18 21:00 117/59 11/20/18 21:00 117 20 106/52 (70) 100 11/20/18 20:45 118 22 101/51 (68) 99 11/20/18 20:32 118 28 50 11/20/18 20:30 118 23 96/52 (67) 100 11/20/18 20:15 120 28 103/51 (68) 100 11/20/18 20:00 Mechanical Ventilator 11/20/18 20:00 116 25 99/56 (70) 100 11/20/18 20:00 60 11/20/18 20:00 101/51 11/20/18 20:00 114 11/20/18 19:01 113 23 50 11/20/18 19:00 86/51 11/20/18 19:00 112 25 86/51 (63) 100 11/20/18 18:45 87/49 11/20/18 18:45 113 23 87/49 (62) 100 11/20/18 18:30 90/50 11/20/18 18:30 115 24 90/50 (63) 100 11/20/18 18:15 112 22 90/53 (65) 100 11/20/18 18:15 90/53 11/20/18 18:00 113 22 79/50 (60) 100 11/20/18 18:00 79/50 11/20/18 17:45 115 22 90/51 (64) 100 11/20/18 17:45 90/51 11/20/18 17:30 114 23 85/51 (62) 100 11/20/18 17:30 85/51 11/20/18 17:21 103/57 11/20/18 17:08 119 21 60 11/20/18 17:00 118 21 92/52 (65) 100 11/20/18 16:30 108 21 101/60 (74) 100 11/20/18 16:00 Mechanical Ventilator 11/20/18 16:00 98.3 107 21 103/57 (72) 100 11/20/18 16:00 103/57 11/20/18 16:00 60 11/20/18 16:00 107 11/20/18 15:30 106 20 106/60 (75) 100 11/20/18 15:22 106 21 60 11/20/18 15:00 107/57 11/20/18 15:00 106 22 107/57 (74) 100 11/20/18 14:30 105 21 99/57 (71) 100 11/20/18 14:00 105 20 100/58 (72) 100 11/20/18 14:00 100/58 11/20/18 13:30 108 18 109/60 (76) 100 11/20/18 13:23 109 23 60 11/20/18 13:00 108/79 11/20/18 13:00 109 20 108/79 (89) 100 11/20/18 12:30 106 19 116/61 (79) 100 11/20/18 12:00 98.5 98 20 112/60 (77) 100 11/20/18 12:00 107 11/20/18 12:00 112/60 11/20/18 12:00 60 11/20/18 12:00 Mechanical Ventilator 11/20/18 11:30 100 19 110/60 (77) 100 11/20/18 11:15 98 20 112/60 (77) 100 11/20/18 11:05 110 26 60 11/20/18 11:00 112/60 11/20/18 11:00 95 14 111/52 (71) 100 11/20/18 10:48 Mechanical Ventilator 11/20/18 10:45 94 21 104/60 (75) 100 11/20/18 10:30 93 18 106/67 (80) 100 Status: somnolent Condition: critical HEENT: atraumatic Lungs: clear Heart: HR/BP stable, HR/BP unstable Abdomen: soft, non-tender Extremities: edema Micro: Microbiology Date/Time Source Procedure Growth Status 11/19/18 22:50 Blood Blood Culture - Preliminary NO GROWTH AFTER 24 HOURS Resulted 11/19/18 22:40 Blood Blood Culture - Preliminary NO GROWTH AFTER 24 HOURS Resulted 11/20/18 00:15 Rectum Received Accucheck: 64 Critical Care - Subjective ROS Limited/Unobtainable: Yes Condition: critical EKG Rhythm: Sinus Rhythm - tannish FI02: 40 Vent Support Breath Rate: 18 Vent Support Mode: AC Vent Tidal Volume: 450 Sputum Amount: Moderate PEEP: 0.0 PIP: 18 Drips: Levophed Tube Feeding Amount: 0 I&O: Intake and Output 11/20/18 11/21/18 19:00 07:00 Intake Total 2036.80 ml 2451.666 ml Output Total 2245 ml 1035 ml Balance -208.20 ml 1416.666 ml Intake Free Water 100 ml 60 ml IV Total 1936.80 ml 2121.666 ml Blood Product 270 ml Output Urine Total 2245 ml 1035 ml Labs: Laboratory Tests Test 11/20/18 13:45 11/21/18 05:00 Iron Level 35 ug/dL (50-175) L Total Iron Binding Capacity 141 ug/dL (250-450) L Percent Iron Saturation 25 % (15-50) Unsaturated Iron Binding 106 ug/dL (112-346) L Lactate Dehydrogenase 202 U/L (81-234) Carcinoembryonic Antigen Pending Vitamin B12 Level > 2000 PG/ML (193-986) H Folate 10.4 NG/ML (8.6-58.9) White Blood Count 8.9 K/UL (4.8-10.8) Red Blood Count 2.35 M/UL (4.70-6.10) L Hemoglobin 7.5 G/DL (14.2-18.0) L Hematocrit 22.7 % (42.0-52.0) L Mean Corpuscular Volume 96 FL (80-99) Mean Corpuscular Hemoglobin 32.0 PG (27.0-31.0) H Mean Corpuscular Hemoglobin Concent 33.2 G/DL (32.0-36.0) Red Cell Distribution Width 17.3 % (11.6-14.8) H Platelet Count 54 K/UL (150-450) L Mean Platelet Volume 8.6 FL (6.5-10.1) Neutrophils (%) (Auto) % (45.0-75.0) Lymphocytes (%) (Auto) % (20.0-45.0) Monocytes (%) (Auto) % (1.0-10.0) Eosinophils (%) (Auto) % (0.0-3.0) Basophils (%) (Auto) % (0.0-2.0) Differential Total Cells Counted 100 Neutrophils % (Manual) 63 % (45-75) Lymphocytes % (Manual) 31 % (20-45) Monocytes % (Manual) 6 % (1-10) Eosinophils % (Manual) 0 % (0-3) Basophils % (Manual) 0 % (0-2) Band Neutrophils 0 % (0-8) Platelet Estimate Decreased L Platelet Morphology Normal Anisocytosis 1+ Sodium Level 142 MMOL/L (136-145) Potassium Level 3.8 MMOL/L (3.5-5.1) Chloride Level 108 MMOL/L (98-107) H Carbon Dioxide Level 27 MMOL/L (21-32) Anion Gap 7 mmol/L (5-15) Blood Urea Nitrogen 11 mg/dL (7-18) Creatinine 0.7 MG/DL (0.55-1.30) Estimat Glomerular Filtration Rate > 60 mL/min (>60) Glucose Level 56 MG/DL (74-106) #L Calcium Level 9.0 MG/DL (8.5-10.1) Phosphorus Level 3.2 MG/DL (2.5-4.9) Magnesium Level 1.5 MG/DL (1.8-2.4) L Total Bilirubin 0.7 MG/DL (0.2-1.0) Aspartate Amino Transf (AST/SGOT) 31 U/L (15-37) Alanine Aminotransferase (ALT/SGPT) 47 U/L (12-78) Alkaline Phosphatase 96 U/L (46-116) Pro-B-Type Natriuretic Peptide 2152 pg/mL (0-125) H Total Protein 5.5 G/DL (6.4-8.2) L Albumin 1.5 G/DL (3.4-5.0) L Globulin 4.0 g/dL Albumin/Globulin Ratio 0.4 (1.0-2.7) L Random Amikacin Level 3.1 ug/mL Law Carter MD Nov 21, 2018 10:28
[2018-11-21] MEDS ORDERED: Aspirin Baby 81mg GT SCH (10:30)
--- NOTE | 2018-11-21 10:48 | NUR ---
RADIOLOGY DEPT., CHEST X-RAY DONE.-P.DYE
[2018-11-21] MEDS ORDERED: Potassium Chloride 40 MEQ in Sodium Chloride 550 ML IVPB ONE (11:00)
--- NOTE | 2018-11-21 11:05 | NUR ---
NURSE NOTES: Dr. morales updated at the bedside of patient situation, ordering medication for phosphorus, magnesium and D5W at 100ml/hr, no further orders given at this time.
[2018-11-21] MEDS: D5NS 1,000 ML IV SCH ×2 (11:57→20:30)
[2018-11-21] MEDS ORDERED: Iron Sucrose 200 MG in NS 110 ML IV ONE ×2 (12:00→14:00)
--- NOTE | 2018-11-21 12:21 | NUR ---
RD ASSESSMENT & RECOMMENDATIONS SEE CARE ACTIVITY FOR COMPLETE ASSESSMENT DAILY ESTIMATED NEEDS: Needs based on Critical care, underweight 51kg 25-30 kcals/kg 7225-8389 total kcals 1.2-2 g protein/kg 61-102 g total protein 25-30 mL/kg 5273-6706 total fluid mLs NUTRITION DIAGNOSIS: 1) Swallowing difficulty r/t respiratory status as evidenced by pt is vent dep via trach, PEG dep for all nutritional needs 2) Altered nutrition related lab values R/T diabetes, clinical condition as evidenced by A1C of 7.1, low Hgb (7.5), elev BNP(2152), low BP on pressor support. ENTERAL NUTRITION RECOMMENDATIONS: VITAL AF 1.2 @50ml/hr x24 hrs to provide 1200ml, 1440 kcal (28kcal/kg), 90g prot (1.7g/kg), 973ml free H2O - WHEN HEMODYNAMICALLY STABLE: start Vital 1.2 @20ml/hr for 6hrs. Advance as tolerated 10ml/hr q4-6 hrs to goal - Flush per MD. HOB over 30 degrees --- If pt remains on high dose pressor support, rec trophic feeds of Vital 1.2 @5-10ml/hr to maintain gut integrity ADDITIONAL RECOMMENDATIONS: 1) RE-calibrate bed scale w/ added P200 mattress + pump PER SN[facility]: 112#, 66 inches tall 2) F/up w/ WC eval for sacral redness 3) Monitor lytes, replete as needed 4) Feed w/ hemodynamic stability . .
[2018-11-21] MEDS ORDERED: Sodium Phosphate 30 MM in NS 275 ML IV ONE (13:00)
--- NOTE | 2018-11-21 13:15 | NUR ---
NURSE NOTES: Patient repositioned and suctioned through Trach, tannish thick secretions noted, patient remains tolerating with FIO2 of 40% with saturations of 98-100%, strong gag reflex noted when suctioning, will continue to monitor.
--- NOTE | 2018-11-21 14:00 | NUR ---
NURSE NOTES: air mattress placed under patient to prevent further skin breakdown, patient tolerated mattress placement with no distress. will continue plan of care.
--- NOTE | 2018-11-21 15:08 | NUR ---
BRICK VENEER MAKERDRILLING MACHINE OPERATOR SI:PNEUMONIA . SEPSIS VS: BP 93/51, P 102, T 97.8, RR 23, SpO2 99 on VENT FiO2 40 Hgb 7.5, Hct 22.7, pO2 100.3, HCO3 26.6 IS:SODIUM PHOSPHATE 285ml IV POTASSIUM CHLORIDE 570ml IV D5/NS x1L IV NOVOLOG SUBQ NOREPINEPHRINE 250 ml IV PIPERACILLIN SOD/TAZOBACTAM SOD /D5 110ml IV PROTONIX 40mg IV D50 25ml IV ICU STATUS
--- NOTE | 2018-11-21 15:45 | NUR ---
*-* INSURANCE *-* ALL CLINICAL HAVE BEEN FAXED TO: [facility] PLEASE FAX THE REVIEW/CLINICALS P- [phone]...OPT-1- OPT-3 F- [phone]
[2018-11-21] MEDS: Amikacin 950 MG in NS 110 ML IV SCH (15:58)
--- NOTE | 2018-11-21 17:02 | Consultation ---
History of Present Illness General Chief Complaint: Dyspnea/Respdistress Present Illness Allergies: Coded Allergies: No Known Allergies (Unverified , 10/11/18) Medication History Scheduled Aspirin* (Aspir 81*), 81 MG GT DAILY, (Reported) Atorvastatin (Lipitor), 80 MG ORAL DAILY, (Reported) Atorvastatin Calcium* (Atorvastatin Calcium*), 80 MG GT BEDTIME, (Reported) Heparin Sod (Porcine) (Heparin Sodium*), 5,000 UNITS SUBQ EVERY 12 HOURS, ( Reported) Pantoprazole* (Pantoprazole*), 40 MG GT DAILY, (Reported) Polyethylene Glycol 3350* (Miralax*), 17 GM ORAL DAILY, (Reported) Vitamin D (Vitamin D3), 5,000 UNITS GT DAILY, (Reported) Patient History Healthcare decision maker N Resuscitation status Advanced Directive on File unk Physical Exam Last 24 Hour Vital Signs Date Time Temp Pulse Resp B/P (MAP) Pulse Ox O2 Delivery O2 Flow Rate FiO2 11/21/18 16:30 98 22 98/59 (72) 99 11/21/18 16:00 Mechanical Ventilator 11/21/18 16:00 97.8 94 19 107/64 (78) 99 11/21/18 16:00 40 11/21/18 16:00 96 11/21/18 15:30 96 20 106/62 (77) 99 11/21/18 15:06 96 19 40 11/21/18 15:00 97 21 107/58 (74) 99 11/21/18 14:00 102 23 102/57 (72) 99 11/21/18 13:30 99 21 93/51 (65) 99 11/21/18 13:26 97 20 40 11/21/18 13:00 98 21 91/49 (63) 100 11/21/18 12:30 96 21 102/57 (72) 100 11/21/18 12:00 97.8 97 21 105/61 (76) 100 11/21/18 12:00 40 11/21/18 12:00 96 11/21/18 12:00 Mechanical Ventilator 11/21/18 11:30 98 21 113/64 (80) 100 11/21/18 11:06 99 21 40 11/21/18 11:00 99 21 107/61 (76) 100 11/21/18 10:30 99 21 112/59 (76) 99 11/21/18 10:00 101 22 106/58 (74) 99 11/21/18 09:52 100/54 11/21/18 09:30 104 21 103/57 (72) 99 11/21/18 09:06 106 20 40 11/21/18 09:00 102 22 108/57 (74) 99 11/21/18 08:30 105 22 100/54 (69) 99 11/21/18 08:00 Mechanical Ventilator 11/21/18 08:00 97.9 104 21 102/61 (75) 100 11/21/18 08:00 40 11/21/18 08:00 104 11/21/18 07:35 103 21 40 11/21/18 07:30 104 20 107/58 (74) 100 11/21/18 07:00 103/58 11/21/18 07:00 98.8 106 22 100/58 (72) 99 11/21/18 06:30 106 22 101/58 (72) 99 11/21/18 06:15 104 21 100/54 (69) 100 11/21/18 06:04 106 21 87/50 (62) 100 11/21/18 06:00 87/50 11/21/18 06:00 105 21 87/51 (63) 100 11/21/18 05:45 106 22 89/50 (63) 99 11/21/18 05:30 108 25 88/50 (63) 100 11/21/18 05:15 108 23 88/52 (64) 99 11/21/18 05:02 110 22 40 11/21/18 05:00 88/52 11/21/18 05:00 112 20 86/51 (63) 100 11/21/18 04:45 111 18 94/51 (65) 100 11/21/18 04:30 114 20 91/52 (65) 99 11/21/18 04:28 114 20 83/50 (61) 100 11/21/18 04:25 116 22 82/51 (61) 100 11/21/18 04:22 116 20 80/52 (61) 100 11/21/18 04:18 117 21 80/56 (64) 100 11/21/18 04:15 118 19 85/52 (63) 100 11/21/18 04:00 85/52 11/21/18 04:00 98.8 120 19 98/59 (72) 100 11/21/18 04:00 60 11/21/18 04:00 106 11/21/18 04:00 Mechanical Ventilator 11/21/18 03:30 120 23 96/58 (71) 99 11/21/18 03:15 120 23 96/58 (71) 99 11/21/18 03:01 119 21 45 11/21/18 03:00 119 22 106/63 (77) 100 11/21/18 03:00 106/63 11/21/18 02:45 119 21 94/57 (69) 100 11/21/18 02:30 94/57 11/21/18 02:30 121 22 103/59 (74) 100 11/21/18 02:15 103/59 11/21/18 02:15 121 25 113/62 (79) 100 11/21/18 02:00 113/62 11/21/18 02:00 120 22 107/58 (74) 100 11/21/18 01:45 121 23 112/62 (79) 100 11/21/18 01:30 120 22 102/57 (72) 100 11/21/18 01:15 122 23 105/58 (74) 100 11/21/18 01:03 123 21 50 11/21/18 01:00 124 22 115/59 (77) 100 11/21/18 01:00 105/58 11/21/18 00:45 126 23 108/62 (77) 100 11/21/18 00:30 128 24 114/59 (77) 100 11/21/18 00:15 124 23 106/61 (76) 100 11/21/18 00:00 106/61 11/21/18 00:00 99.0 125 25 117/59 (78) 100 11/21/18 00:00 Mechanical Ventilator 11/20/18 23:45 122 24 107/61 (76) 100 11/20/18 23:30 99.0 121 23 112/60 (77) 100 11/20/18 23:15 118 24 107/61 (76) 100 11/20/18 23:00 107/61 11/20/18 23:00 118 24 101/60 (74) 100 11/20/18 22:57 99.8 11/20/18 22:45 118 24 101/57 (72) 100 11/20/18 22:30 116 19 50 11/20/18 22:30 116 28 111/57 (75) 100 11/20/18 22:15 116 21 122/67 (85) 100 11/20/18 22:00 100.6 118 33 124/58 (80) 100 11/20/18 21:46 108/53 11/20/18 21:45 116 22 107/55 (72) 100 11/20/18 21:30 117 21 108/53 (71) 100 11/20/18 21:15 118 22 109/54 (72) 100 11/20/18 21:00 117/59 11/20/18 21:00 117 20 106/52 (70) 100 11/20/18 20:45 118 22 101/51 (68) 99 11/20/18 20:32 118 28 50 11/20/18 20:30 118 23 96/52 (67) 100 11/20/18 20:15 120 28 103/51 (68) 100 11/20/18 20:00 Mechanical Ventilator 11/20/18 20:00 116 25 99/56 (70) 100 11/20/18 20:00 60 11/20/18 20:00 101/51 11/20/18 20:00 114 11/20/18 19:01 113 23 50 11/20/18 19:00 86/51 11/20/18 19:00 112 25 86/51 (63) 100 11/20/18 18:45 87/49 11/20/18 18:45 113 23 87/49 (62) 100 11/20/18 18:30 90/50 11/20/18 18:30 115 24 90/50 (63) 100 11/20/18 18:15 112 22 90/53 (65) 100 11/20/18 18:15 90/53 11/20/18 18:00 113 22 79/50 (60) 100 11/20/18 18:00 79/50 11/20/18 17:45 115 22 90/51 (64) 100 11/20/18 17:45 90/51 11/20/18 17:30 114 23 85/51 (62) 100 11/20/18 17:30 85/51 11/20/18 17:21 103/57 11/20/18 17:08 119 21 60 11/20/18 17:00 118 21 92/52 (65) 100 Intake and Output 11/20/18 11/21/18 19:00 07:00 Intake Total 2036.80 ml 2451.666 ml Output Total 2245 ml 1035 ml Balance -208.20 ml 1416.666 ml Intake Free Water 100 ml 60 ml IV Total 1936.80 ml 2121.666 ml Blood Product 270 ml Output Urine Total 2245 ml 1035 ml Laboratory Tests Test 11/21/18 05:00 11/21/18 10:55 White Blood Count 8.9 K/UL (4.8-10.8) Red Blood Count 2.35 M/UL (4.70-6.10) L Hemoglobin 7.5 G/DL (14.2-18.0) L Hematocrit 22.7 % (42.0-52.0) L Mean Corpuscular Volume 96 FL (80-99) Mean Corpuscular Hemoglobin 32.0 PG (27.0-31.0) H Mean Corpuscular Hemoglobin Concent 33.2 G/DL (32.0-36.0) Red Cell Distribution Width 17.3 % (11.6-14.8) H Platelet Count 54 K/UL (150-450) L Mean Platelet Volume 8.6 FL (6.5-10.1) Neutrophils (%) (Auto) % (45.0-75.0) Lymphocytes (%) (Auto) % (20.0-45.0) Monocytes (%) (Auto) % (1.0-10.0) Eosinophils (%) (Auto) % (0.0-3.0) Basophils (%) (Auto) % (0.0-2.0) Differential Total Cells Counted 100 Neutrophils % (Manual) 63 % (45-75) Lymphocytes % (Manual) 31 % (20-45) Monocytes % (Manual) 6 % (1-10) Eosinophils % (Manual) 0 % (0-3) Basophils % (Manual) 0 % (0-2) Band Neutrophils 0 % (0-8) Platelet Estimate Decreased L Platelet Morphology Normal Anisocytosis 1+ Sodium Level 142 MMOL/L (136-145) Potassium Level 3.8 MMOL/L (3.5-5.1) Chloride Level 108 MMOL/L (98-107) H Carbon Dioxide Level 27 MMOL/L (21-32) Anion Gap 7 mmol/L (5-15) Blood Urea Nitrogen 11 mg/dL (7-18) Creatinine 0.7 MG/DL (0.55-1.30) Estimat Glomerular Filtration Rate > 60 mL/min (>60) Glucose Level 56 MG/DL (74-106) #L Calcium Level 9.0 MG/DL (8.5-10.1) Phosphorus Level 3.2 MG/DL (2.5-4.9) Magnesium Level 1.5 MG/DL (1.8-2.4) L Total Bilirubin 0.7 MG/DL (0.2-1.0) Aspartate Amino Transf (AST/SGOT) 31 U/L (15-37) Alanine Aminotransferase (ALT/SGPT) 47 U/L (12-78) Alkaline Phosphatase 96 U/L (46-116) Pro-B-Type Natriuretic Peptide 2152 pg/mL (0-125) H Total Protein 5.5 G/DL (6.4-8.2) L Albumin 1.5 G/DL (3.4-5.0) L Globulin 4.0 g/dL Albumin/Globulin Ratio 0.4 (1.0-2.7) L Random Amikacin Level 3.1 ug/mL Arterial Blood pH 7.420 (7.350-7.450) Arterial Blood Partial Pressure CO2 41.9 mmHg (35.0-45.0) Arterial Blood Partial Pressure O2 100.3 mmHg (75.0-100.0) H Arterial Blood HCO3 26.6 mmol/L (22.0-26.0) H Arterial Blood Oxygen Saturation 97.2 % (95-100) Arterial Blood Base Excess 1.9 (-2-2) José Miguel Test Positive Height (Feet): 5 Height (Inches): 8.00 Weight (Pounds): 140 Medications Current Medications Medications (Trade) Dose Ordered Sig/Last Route PRN Reason Start Time Stop Time Status Last Admin Dose Admin Acetaminophen (Tylenol) 650 mg Q4H PRN GT Mild Pain/Temp > 100.5 11/20/18 21:30 12/20/18 21:29 11/20/18 21:43 Amikacin Protocol (Amikacin pharmacy to dose) 1 ea DAILY PRN MISC Per rx protocol 11/20/18 09:00 12/20/18 08:59 Amikacin Sulfate 950 mg/Sodium Chloride 113.8 ml @ 220 mls/hr Q24H IV 11/21/18 12:30 11/28/18 12:29 11/21/18 15:58 Artificial Tears (Lacri-Lube) 1 applic Q6HR BOTH EYES 11/20/18 12:00 12/20/18 11:59 11/21/18 11:57 Dextrose (Dextrose 50%) 25 ml Q30M PRN IV Hypoglycemia 11/20/18 09:00 12/20/18 08:59 11/21/18 06:23 Dextrose (Dextrose 50%) 50 ml Q30M PRN IV Hypoglycemia 11/20/18 09:00 12/20/18 08:59 Dextrose/Sodium Chloride 1,000 ml @ 100 mls/hr Q10H IV 11/21/18 10:30 12/21/18 10:29 11/21/18 11:57 Insulin Aspart (NovoLOG) Q6H SUBQ 11/21/18 06:00 12/21/18 05:59 11/21/18 12:44 Norepinephrine Bitartrate 4 mg/ Dextrose 250 ml @ 0 mls/hr Q24H IV 11/20/18 23:00 12/20/18 22:59 11/21/18 09:52 Pantoprazole (Protonix) 40 mg DAILY IV 11/20/18 10:30 12/20/18 10:29 11/21/18 09:17 Piperacillin Sod/ Tazobactam Sod 3.375 gm/Dextrose 110 ml @ 27.5 mls/hr Q8HR IVPB 11/20/18 14:00 11/27/18 13:59 11/21/18 15:57 Polyethylene Glycol (Miralax) 17 gm DAILY PRN ORAL Constipation 11/20/18 09:15 12/20/18 09:14 Sodium Phosphate 30 mm/Sodium Chloride 285 ml @ 47.5 mls/hr ONCE ONCE IV 11/21/18 13:00 11/21/18 18:59 11/21/18 13:41 Assessment/Plan Assessment/Plan Hematology Consultation Reason for Consultation: Anemia, Thrombocytopenia DOS: 11/21/18 REQ MD: Matt Flores HPI Patient well know to me 53y old male presents with altered level of consciousness. Apparently there was some respiratory distress and his oxygen saturation was low at 80% before suctioning. Paramedics found him and he was bagged, admitted to icu. He has a tracheostomy tube. They continue high flow oxygen on the way in. His blood pressure was low and a fluid bolus was begun. ROS limited, altered mental status. Initial HPI as noted above. Patient seen in ICU, no apparent distress. Labs reviewed patient presents today with leukocytosis, anemia, iron deficiency and negative OB stool. Patient is tracheostomy and G-tube dependent. Troponin level is negative. Heme consulted as well as pulm, cards Home Medications Pantoprazole* (PANTOPRAZOLE*) 40 Mg Tablet., 40 MG GT DAILY, TAB 10/11/18 Heparin Sod (Porcine) (HEPARIN SODIUM*) 5 000/1 Ml Vial, 5000 UNITS SUBQ EVERY 12 HOURS, VIAL 10/11/18 Aspirin* (ASPIR 81*) 81 Mg Tablet.dr, 81 MG GT DAILY, TAB 10/11/18 Vitamin D (Vitamin D3) 400 Unit Tablet, 5000 UNITS GT DAILY, TAB 10/11/18 Atorvastatin Calcium* (ATORVASTATIN CALCIUM*) 40 Mg Tablet, 80 MG GT BEDTIME, TAB 10/11/18 Med list reviewed/reconciled: Yes Allergies: Coded Allergies: No Known Allergies (Unverified , 10/11/18) Limited by: medical condition History Provided By: Medical Record PMH Narrative Limited by: medical condition Past Medical History: see triage record Past Surgical History: other - Tracheostomy, gastrostomy Social History Narrative Gee Womack Reviewed Nursing Documentation: PMH: Agreed; PSxH: Agreed Past Medical History: No History, Except For Hx Diabetes: Yes Hx Cerebrovascular Accident: Yes Past Surgical History: none - See HPI Social History: Denies: smoking, alcohol use, drug use, other Review of Systems: limited Physical Exam Vitals: have been reviewed Gen: no apparent distress Head: normocephalic EENT: PERRL/EOMI Neck: supple, tracheotomy +++ Respiratory: normal breath sounds, no respiratory distress ++ trach Cardiovascular: normal rate Gastrointestinal: normal inspection, non tender, soft, normal bs, gt+++ Rectal: deferred Genitourinary: deferred Musculoskeletal: normal inspection, back normal Skin: normal color, no rash, warm/dry Lymphatic: normal inspection, no adenopathy Current Medications Medications (Trade) Dose Ordered Sig/Last Route PRN Reason Start Time Stop Time Status Last Admin Dose Admin Acetaminophen (Tylenol) 650 mg Q4H PRN RECTAL Prn Headache/Temp > 101 10/11/18 19:00 11/10/18 18:59 Albuterol/ Ipratropium (Albuterol/ Ipratropium) 3 ml Q4H PRN HHN Shortness of Breath 10/11/18 19:00 10/16/18 18:59 Dextrose/Sodium Chloride 1,000 ml @ 100 mls/hr Q10H IV 10/11/18 19:03 11/10/18 19:02 10/12/18 05:00 Heparin Sodium (Porcine) (Heparin 5000 units/ml) 5,000 units EVERY 12 HOURS SUBQ 10/11/18 21:00 11/10/18 20:59 10/12/18 09:00 Hydrocortisone (Solu-CORTEF) 100 mg EVERY 8 HOURS IV 10/11/18 22:00 11/10/18 21:59 10/12/18 14:00 Midazolam HCl (Versed 2mg/2ml vial) 2 mg Q4H PRN IVP Agitation 10/11/18 19:00 11/10/18 18:59 Norepinephrine Bitartrate 8 mg/ Dextrose 508 ml @ 0 mls/hr Q24H IV 10/11/18 19:00 11/10/18 18:59 10/11/18 22:00 Piperacillin Sod/ Tazobactam Sod 3.375 gm/Sodium Chloride 110 ml @ 27.5 mls/hr EVERY 8 HOURS IVPB 10/11/18 22:00 10/16/18 21:59 10/12/18 14:00 Vancomycin HCl (Vanco rx to dose) 1 ea DAILY PRN MISC Per rx protocol 10/11/18 19:00 11/10/18 18:59 Vancomycin HCl 750 mg/Sodium Chloride 275 ml @ 183.333 mls/hr Q12HR IVPB 10/12/18 09:00 10/17/18 08:59 10/12/18 09:00 Vasopressin 100 units/Sodium Chloride 100 ml @ 2.4 mls/hr Q24H IV 10/12/18 20:00 11/10/18 19:59 Assessment and Recs: # Anemia of chronic disease -- panel has been ordered and reviewed --> maintain hgb above 7 --> panel reviewd, no hemolysis, peripheral smear is wnl --> monitor for bleeding --> gi recs appreciated --> would hold off any iron at this time --> cea has been ordered # Thrombocytopenia - potential causes multifactorial, at this time, likely due to infection --> Hep panel and HIV negative from prior admission --> US abd to evaluate for cirrhosis and hsm ordered --> Peripheral smear ordered to evaluate for blasts /schistocytes --> abx and other meds have been reviewed --> ok for ppx if plt >50k w/ either heparin or lovenox --> Transfuse if Plt < 20k and fever, or if Plt < 10k without fever # Coagulopathy - potentailly related to decreased po intake --> consider vit K prior to any proecedure --> ffp as well if patient bleeds # Gastrostomy tube dependent --> started tube feeds # Rectal tube in place from before --> wound care # Clostridium difficile diarrhea # Dehydration # Iron deficiency # Tracheostomy ++ --> per pulm recs # Encephalopathy The timing of this note does not necessarily reflect the time of the patient was seen. Greatly appreciate consultation! Antonio Higgins MD Nov 21, 2018 17:02
--- NOTE | 2018-11-21 19:28 | NUR ---
HAND-OFF: Report given to KOLE Dalal.
--- NOTE | 2018-11-21 19:35 | NUR ---
NURSE NOTES: Received the patient from Eveline Jules. Patient nonverbal, responds to pain, resting in bed with eyes closed. In no acute distress, patient noted with trach, Shiley 6.0, to vent, settings: AC18, TV 450, FIO2 40%, PEEP 0, O2 sat 98%. No acute distress noted. SR noted on the monitor. Patient noted with Left upper abdomen G-tube. Castrejon cath intact and patent, draining yellow urine by gravity. Patient noted with sacral redness. Right EJ 18G and Right IJ TLC intact, running Levophed at 2mcg/min, D5NS running at 100ml/hr. Vital signs stable. Bed in low and locked position. Call light within reach. Will continue to monitor.
[2018-11-21] MEDS: Dyna-Hex 2% Top Sol 2oz TOPIC SCH (20:00)
--- NOTE | 2018-11-21 22:00 | NUR ---
NURSE NOTES: Pt's resting in bed, in no acute distress. VS stable, afebrile. Will continue to monitor.
[2018-11-22] VITALS (58 sets, daily range): BP systolic 86–139; BP diastolic 42–82
--- NOTE | 2018-11-22 | NUR ---
NURSE NOTES: Pt's resting in bed, in no acute distress. VS stable. Will continue to monitor.
[2018-11-22] MEDS: Lacri-Lube Opth Oint 3.5gm BOTH EYES SCH ×4 (00:35→18:35)
[2018-11-22] MEDS: NovoLOG Insulin Flexpen SUBQ SCH ×4 (00:37→18:36)
--- NOTE | 2018-11-22 02:00 | NUR ---
NURSE NOTES: Pt's resting in bed, in no acute distress. VS stable. Will continue to monitor.
[2018-11-22] MEDS: D5NS 1,000 ML IV SCH ×2 (03:59→17:11)
--- NOTE | 2018-11-22 04:00 | NUR ---
NURSE NOTES: Pt's resting in bed, in no acute distress. VS stable. Will continue to monitor.
--- NOTE | 2018-11-22 06:00 | NUR ---
NURSE NOTES: Pt's resting in bed, with eyes closed, in no acute distress. VS stable. Will continue to monitor.
[2018-11-22 06:22] LABS: HEMATOCRIT 25.8 % (42.0-52.0); HEMOGLOBIN 8.5 G/DL (14.2-18.0); MEAN CORPUSCULAR VOLUME 93 FL (80-99); PLATELET COUNT 39 K/UL (150-450); RED BLOOD COUNT 2.78 M/UL (4.70-6.10); RED CELL DISTRIBUTION WIDTH 18.2 % (11.6-14.8); WHITE BLOOD COUNT 7.6 K/UL (4.8-10.8)
[2018-11-22] MEDS: Piperacillin/Tazobactam 3.375 GM in D5W 110 ML IVPB SCH ×3 (06:26→22:46)
[2018-11-22 07:08] LABS: ALANINE AMINOTRANSFERASE 40 U/L (12-78); ALBUMIN 1.5 G/DL (3.4-5.0); ALBUMIN/GLOBULIN RATIO 0.4 (1.0-2.7); ALKALINE PHOSPHATASE 118 U/L (46-116); ANION GAP 10 mmol/L (5-15); ASPARTATE AMINO TRANSFERASE 29 U/L (15-37); BILIRUBIN,TOTAL 0.4 MG/DL (0.2-1.0); BLOOD UREA NITROGEN 11 mg/dL (7-18); CARBON DIOXIDE 24 MMOL/L (21-32); CHLORIDE 103 MMOL/L (98-107); CREATININE 0.7 MG/DL (0.55-1.30); PHOSPHORUS 3.7 MG/DL (2.5-4.9); POTASSIUM 3.5 MMOL/L (3.5-5.1); SODIUM 137 MMOL/L (136-145)
--- NOTE | 2018-11-22 07:10 | NUR ---
HAND-OFF: Report given to KOLE Jules.
[2018-11-22 07:33] LABS: FERRITIN > 2000 NG/ML (8-388)
--- NOTE | 2018-11-22 08:00 | NUR ---
NURSE NOTES:WOUND CARE NOTES:Pt presented on admission with non-blanchable erythema with shearing sacrum and bilat clefts of buttocks .Partial thickness pressure injury noted to R buttocks .Base of wound moist -viable. Edges moist but adherent.Non-blanchable erythema without induration periwound.Bilat heels are firm and easily blanchable . No other skin concerns noted. Recommendations: Apply Moisture Barrier paste to sacrum .Cover with Optifoam drsg .Change every 3days and prn. Apply Moisture Barrier to entire buttocks with each pwerineal care. Apply Cavilon Skin Barrier to both heels .Off-load heels with pillow. Reposition at least every 2hours or as tolerated. APM/CLINT mattress overlay.
--- NOTE | 2018-11-22 08:05 | NUR ---
NURSE NOTES: Dr. Lozano rounded at the bedside, notified regarding plt level of 31 and hgb level of 8.5 after second unit of PRBC's, no order to trasfuse at this time, ordered to have a cbc blood draw at 1800 and notify with results, will place orders.
[2018-11-22] MEDS: Pantoprazole Inj IV SCH (09:15)
--- NOTE | 2018-11-22 09:32 | NUR ---
RADIOLOGY DEPT., CHEST X-RAY DONE.-P.DYE
--- NOTE | 2018-11-22 09:50 | NUR ---
NURSE NOTES: Dr. Carter aware of patient magnesium level of 1.6, ordered to have 2g of magnesium sulfate, will place order.
--- NOTE | 2018-11-22 09:55 | Pulmonolgy Critical Care Note ---
Critical Care - Asmt/Plan Problems: (1) Septic shock (2) Healthcare-associated pneumonia (3) Cerebral infarction (4) Feeding by G-tube (5) Acute metabolic encephalopathy (6) Anemia Respiratory: monitor respiratory rate, adjust FIO2, CXR Cardiac: continue to monitor HR/BP Renal: F/U I&O, keep IV fluid, check electrolytes Infectious Disease: check cultures Gastrointestinal: continue feedings/current rate, hold feedings Endocrine: check TSH, check HgA1C Hematologic: transfuse if hgb<8.5 Neurologic: PRN Ativan, PRN Morphine, keep patient comfortable Affect: PRN ativan Prophylaxis: Protonix, Heparin Time Spent (Minutes): 40 Notes Reviewed: cardio, renal Discussed with: nurses, consultants, rn field case managercoating manager - Objective Last 24 Hour Vital Signs Date Time Temp Pulse Resp B/P (MAP) Pulse Ox O2 Delivery O2 Flow Rate FiO2 11/22/18 09:00 95 21 97/58 (71) 98 11/22/18 08:58 92 24 40 11/22/18 08:30 96 22 101/56 (71) 97 11/22/18 08:00 97.4 95 21 97/64 (75) 97 11/22/18 08:00 40 11/22/18 08:00 Mechanical Ventilator 11/22/18 07:41 97 11/22/18 07:11 96 22 40 11/22/18 07:00 97 21 107/62 (77) 97 11/22/18 07:00 97 22 107/67 (80) 98 11/22/18 06:00 95 21 97 11/22/18 05:45 96 22 103/67 (79) 98 11/22/18 05:30 94 17 107/62 (77) 97 11/22/18 05:15 95 19 105/59 (74) 96 11/22/18 05:00 94 20 96/60 (72) 97 11/22/18 05:00 95 18 40 11/22/18 05:00 Mechanical Ventilator 11/22/18 05:00 98.7 94 20 97 11/22/18 04:45 99 27 95/60 (72) 96 11/22/18 04:30 97 27 99/62 (74) 94 11/22/18 04:15 97 22 106/82 (90) 93 11/22/18 04:00 Mechanical Ventilator 11/22/18 04:00 96 20 102/62 (75) 94 11/22/18 04:00 40 11/22/18 04:00 96 11/22/18 03:45 94 18 98/56 (70) 93 11/22/18 03:30 95 20 97/55 (69) 93 11/22/18 03:15 94 20 94/59 (71) 100 11/22/18 03:00 92 19 40 11/22/18 03:00 91 19 101/74 (83) 100 11/22/18 02:45 92 18 98/56 (70) 93 11/22/18 02:30 93 18 93/55 (68) 93 11/22/18 02:15 94 19 98/57 (71) 94 11/22/18 02:00 98.7 91 18 98/58 (71) 96 11/22/18 01:45 93 18 96/58 (71) 97 11/22/18 01:30 94 18 95/57 (70) 96 11/22/18 01:15 95 20 94/59 (71) 96 11/22/18 01:10 92 18 40 11/22/18 01:00 94 19 101/56 (71) 95 11/22/18 00:45 94 18 99/54 (69) 96 11/22/18 00:30 95 19 93/55 (68) 95 11/22/18 00:15 96 20 95/57 (70) 96 11/22/18 00:00 96 11/22/18 00:00 Mechanical Ventilator 11/22/18 00:00 40 11/22/18 00:00 95 18 96/54 (68) 95 11/21/18 23:45 96 20 96/55 (69) 94 11/21/18 23:30 99 22 105/57 (73) 96 11/21/18 23:29 94 19 40 11/21/18 23:15 96 19 87/52 (64) 95 11/21/18 23:00 98 20 108/69 (82) 96 11/21/18 22:45 96 18 91/51 (64) 95 11/21/18 22:30 96 19 89/53 (65) 95 11/21/18 22:15 98 22 100/58 (72) 96 11/21/18 22:00 98 19 91/53 (66) 96 11/21/18 21:45 98 21 87/53 (64) 96 11/21/18 21:30 95 18 89/51 (64) 97 11/21/18 21:15 98 21 89/53 (65) 98 11/21/18 21:01 97 23 40 11/21/18 21:00 97 22 91/56 (68) 98 11/21/18 20:45 95 20 91/55 (67) 98 11/21/18 20:30 95 20 89/58 (68) 97 11/21/18 20:15 96 29 95/64 (74) 99 11/21/18 20:00 40 11/21/18 20:00 Mechanical Ventilator 11/21/18 20:00 95 11/21/18 20:00 95 19 92/52 (65) 98 11/21/18 19:45 97 22 94/51 (65) 98 11/21/18 19:30 95 20 92/52 (65) 98 11/21/18 19:24 94 19 40 11/21/18 19:15 98.6 97 25 95/56 (69) 99 11/21/18 19:00 94 20 88/51 (63) 99 11/21/18 18:45 97 30 90/49 (63) 99 11/21/18 18:30 96 27 90/49 (63) 99 11/21/18 18:00 97 20 98/53 (68) 98 11/21/18 17:30 98 19 93/55 (68) 97 11/21/18 17:02 98 20 40 11/21/18 17:00 100 19 91/57 (68) 100 11/21/18 16:30 98 22 98/59 (72) 99 11/21/18 16:00 Mechanical Ventilator 11/21/18 16:00 97.8 94 19 107/64 (78) 99 11/21/18 16:00 40 11/21/18 16:00 96 11/21/18 15:30 96 20 106/62 (77) 99 11/21/18 15:06 96 19 40 11/21/18 15:00 97 21 107/58 (74) 99 11/21/18 14:00 102 23 102/57 (72) 99 11/21/18 13:30 99 21 93/51 (65) 99 11/21/18 13:26 97 20 40 11/21/18 13:00 98 21 91/49 (63) 100 11/21/18 12:30 96 21 102/57 (72) 100 11/21/18 12:00 97.8 97 21 105/61 (76) 100 11/21/18 12:00 40 11/21/18 12:00 96 11/21/18 12:00 105/61 11/21/18 12:00 Mechanical Ventilator 11/21/18 11:30 98 21 113/64 (80) 100 11/21/18 11:06 99 21 40 11/21/18 11:00 99 21 107/61 (76) 100 11/21/18 10:30 99 21 112/59 (76) 99 11/21/18 10:00 101 22 106/58 (74) 99 Status: awake Condition: critical HEENT: atraumatic Lungs: clear Heart: HR/BP stable Abdomen: soft, active bowel sounds Extremities: no C/C/E Decubiti: location Micro: Microbiology Date/Time Source Procedure Growth Status 11/19/18 22:50 Blood Blood Culture - Preliminary NO GROWTH AFTER 48 HOURS Resulted 11/19/18 22:40 Blood Blood Culture - Preliminary NO GROWTH AFTER 48 HOURS Resulted 11/20/18 00:15 Nose MRSA Culture - Final NO METHICILLIN RESISTANT STAPH AUREUS... Complete 11/20/18 06:45 Rectum - Final NO CARBAPENEM-RESISTANT ENTEROBACTERI... Complete 11/20/18 00:15 Rectum VRE Culture - Final Enterococcus Faecalis - Vre Complete Accucheck: 110 Critical Care - Subjective ROS Limited/Unobtainable: Yes EKG Rhythm: Sinus Rhythm FI02: 40 Vent Support Breath Rate: 18 Vent Support Mode: AC Vent Tidal Volume: 450 Sputum Amount: Moderate PEEP: 0.0 PIP: 24 Tube Feeding Amount: 0 I&O: Intake and Output 11/21/18 11/22/18 19:00 07:00 Intake Total 3133.8 ml 1791.25 ml Output Total 1615 ml 1200 ml Balance 1518.8 ml 591.25 ml IV Total 3093.8 ml 1521.25 ml Tube Feeding 0 ml Blood Product 270 ml Other 40 ml Output Urine Total 1615 ml 1200 ml # Bowel Movements 1 CXR: no change Labs: Laboratory Tests Test 11/21/18 10:55 11/22/18 04:10 11/22/18 05:45 11/22/18 09:02 Arterial Blood pH 7.420 (7.350-7.450) 7.425 (7.350-7.450) Arterial Blood Partial Pressure CO2 41.9 mmHg (35.0-45.0) 39.2 mmHg (35.0-45.0) Arterial Blood Partial Pressure O2 100.3 mmHg (75.0-100.0) H 80.6 mmHg (75.0-100.0) Arterial Blood HCO3 26.6 mmol/L (22.0-26.0) H 25.1 mmol/L (22.0-26.0) Arterial Blood Oxygen Saturation 97.2 % (95-100) 95.3 % (95-100) Arterial Blood Base Excess 1.9 (-2-2) 0.8 (-2-2) José Miguel Test Positive Positive Stool Occult Blood Pending White Blood Count 7.6 K/UL (4.8-10.8) Red Blood Count 2.78 M/UL (4.70-6.10) L Hemoglobin 8.5 G/DL (14.2-18.0) L Hematocrit 25.8 % (42.0-52.0) L Mean Corpuscular Volume 93 FL (80-99) Mean Corpuscular Hemoglobin 30.5 PG (27.0-31.0) Mean Corpuscular Hemoglobin Concent 32.8 G/DL (32.0-36.0) Red Cell Distribution Width 18.2 % (11.6-14.8) H Platelet Count 39 K/UL (150-450) L Mean Platelet Volume 8.3 FL (6.5-10.1) Neutrophils (%) (Auto) % (45.0-75.0) Lymphocytes (%) (Auto) % (20.0-45.0) Monocytes (%) (Auto) % (1.0-10.0) Eosinophils (%) (Auto) % (0.0-3.0) Basophils (%) (Auto) % (0.0-2.0) Differential Total Cells Counted 100 Neutrophils % (Manual) 71 % (45-75) Lymphocytes % (Manual) 20 % (20-45) Monocytes % (Manual) 8 % (1-10) Eosinophils % (Manual) 1 % (0-3) Basophils % (Manual) 0 % (0-2) Band Neutrophils 0 % (0-8) Platelet Estimate Decreased L Platelet Morphology Normal Hypochromasia 2+ Anisocytosis 2+ Spherocytes 1+ Sodium Level 137 MMOL/L (136-145) Potassium Level 3.5 MMOL/L (3.5-5.1) Chloride Level 103 MMOL/L (98-107) Carbon Dioxide Level 24 MMOL/L (21-32) Anion Gap 10 mmol/L (5-15) Blood Urea Nitrogen 11 mg/dL (7-18) Creatinine 0.7 MG/DL (0.55-1.30) Estimat Glomerular Filtration Rate > 60 mL/min (>60) Glucose Level 159 MG/DL (74-106) #H Calcium Level 9.0 MG/DL (8.5-10.1) Phosphorus Level 3.7 MG/DL (2.5-4.9) Magnesium Level 1.6 MG/DL (1.8-2.4) L Ferritin > 2000 NG/ML (8-388) H Total Bilirubin 0.4 MG/DL (0.2-1.0) Aspartate Amino Transf (AST/SGOT) 29 U/L (15-37) Alanine Aminotransferase (ALT/SGPT) 40 U/L (12-78) Alkaline Phosphatase 118 U/L (46-116) H Total Protein 5.7 G/DL (6.4-8.2) L Albumin 1.5 G/DL (3.4-5.0) L Globulin 4.2 g/dL Albumin/Globulin Ratio 0.4 (1.0-2.7) L Law Carter MD Nov 22, 2018 09:55
[2018-11-22] MEDS: Amikacin 950 MG in NS 110 ML IV SCH (13:27)
--- NOTE | 2018-11-22 13:29 | NUR ---
TWISTER IN NOTES RECEIVED CALL FROM JP FROM [facility], PT IS CAPITATED TO [facility]. PT HAS BEEN PLACED ON THE TRANSFER LIST DR FRANCISCO MADE AWARE. OK TO TRANSFER WHEN BED AVAILABLE. JP [phone]
--- NOTE | 2018-11-22 13:30 | NUR ---
NURSE NOTES: 2 grams of magnesium completed, Levophed held. will continue to monitor.
--- NOTE | 2018-11-22 13:51 | Progress Note ---
DATE: 11/20/2018 CARDIOLOGY PROGRESS NOTE SUBJECTIVE: The patient's blood pressure remains tenuous. He remains on ventilator support via tracheotomy. Levophed dosing is being tapered. The patient received a packed red blood cell transfusion yesterday. OBJECTIVE: LUNGS: Coarse breath sounds. Scattered rhonchi. HEART: Regular rhythm and rate. Normal S1, S2. ABDOMEN: Soft. EXTREMITIES: No edema. Blood pressure ranging in the 90 systolic. IMPRESSION: 1. Sepsis with shock. 2. Healthcare-acquired pneumonia. 3. 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 4. Dysphagia with G-tube. 5. Anemia. 6. Secondary sinus tachycardia. 7. Acute diastolic congestive heart failure. 8. Severe protein-calorie malnutrition. 9. Hypomagnesemia. PLAN: 1. IV magnesium. 2. Nutrition by G-tube. 3. No diuresis until off pressors with stable blood pressure parameters. Jorge A Morales M.D. DR: PAYAL JOB#: [id number] CC:
--- NOTE | 2018-11-22 13:51 | Progress Note ---
DATE: 11/21/2018 SUBJECTIVE: The patient is afebrile and hemodynamically stable. PHYSICAL EXAMINATION: VITAL SIGNS: Blood pressure 91/51, his pulse is 96, respirations were 18, and temperature . HEENT: Eyes were normal. ENT, mucous membranes are moist and intact. NECK: Supple with no JVD without lymph nodes. Tracheostomy site is clean. LUNGS: Clear without rhonchi, rales, or wheezing. Secretions are small, thin, and ramirez. HEART: Normal sounds with regular beats. There is no S3, S4, or pericardial rub. ABDOMEN: Soft and nontender with normal bowel sounds. Gastrostomy site is clean. EXTREMITIES: Warm without cyanosis, clubbing, or edema. LABORATORY DATA: Hemoglobin 7.5, hematocrit 32.2 with MCV of 96, WBC of 5.9, and platelets is . His BUN and creatinine, 11 and 0.7 respectively. Sodium 142, potassium 3.8, chloride 108, and CO2 was 27. His calcium is 9.0 and phosphorus is 3.2. His magnesium is 1.5. SGOT and SGPT and alkaline phosphatase are all normal. ProBNP 2100. IMPRESSION: The patient is recovering from septic shock. for his current condition. Repeat laboratory tests will be done in the a.m. Matt Flores M.D. DR: JAZZY JOB#: [id number] CC:
--- NOTE | 2018-11-22 13:51 | Progress Note ---
DATE: 11/22/2018 NOTE: POOR AUDIO ADDENDUM LABORATORY DATA: Hemoglobin is 7.5, hematocrit 22.7, MCV of 95, WBC of 8.9, and platelets on November 20. drop in H and H. The patient was ordered transfusion of 2 units of packed RBCs. His BUN and creatinine is 11 and 0.7 respectively. His sodium is 142, potassium 3.8, chloride 106, and CO2 is . IMPRESSION: The patient's condition is improving. His living status . Repeat laboratory tests will be done in the a.m. Matt Flores M.D. DR: HUGO JOB#: [id number] CC:
--- NOTE | 2018-11-22 15:08 | General Progress Note ---
Assessment/Plan Assessment/Plan Assessment and Recs: # Anemia of chronic disease -- panel has been ordered and reviewed, ferritin is >1000, tibc is low --> maintain hgb above 7 --> panel reviewd, no hemolysis, peripheral smear is wnl --> monitor for bleeding --> gi recs appreciated --> would hold off any iron at this time --> cea is 7.8 # Thrombocytopenia - potential causes multifactorial, at this time, likely due to infection --> Hep panel and HIV negative from prior admission --> US abd to evaluate for cirrhosis and hsm ordered --> Peripheral smear ordered to evaluate for blasts /schistocytes does show some mild bandemia and immature cells --> flow ordered --> abx and other meds have been reviewed --> ok for ppx if plt >50k w/ either heparin or lovenox --> Transfuse if Plt < 20k and fever, or if Plt < 10k without fever # Coagulopathy - potentailly related to decreased po intake --> consider vit K prior to any proecedure --> ffp as well if patient bleeds # Gastrostomy tube dependent --> started tube feeds # Rectal tube in place from before --> wound care # Clostridium difficile diarrhea # Dehydration # Iron deficiency # Tracheostomy ++ --> per pulm recs # Encephalopathy The timing of this note does not necessarily reflect the time of the patient was seen. Greatly appreciate consultation! Subjective Allergies: Coded Allergies: No Known Allergies (Unverified , 10/11/18) Subjective 11/22: plts are lower today as is cbc/hgb, trending closely, low threshold to transfusion Objective Last 24 Hour Vital Signs Date Time Temp Pulse Resp B/P (MAP) Pulse Ox O2 Delivery O2 Flow Rate FiO2 11/22/18 14:00 99 21 93/44 (60) 97 11/22/18 13:16 99 21 40 11/22/18 13:00 98.3 97 35 96/63 (74) 97 11/22/18 12:30 96 27 99/58 (72) 99 11/22/18 12:00 40 11/22/18 12:00 97 37 99/57 (71) 98 11/22/18 12:00 Mechanical Ventilator 11/22/18 11:45 96 11/22/18 11:30 95 30 97/54 (68) 98 11/22/18 11:10 104/63 11/22/18 11:00 92 17 104/63 (77) 99 11/22/18 10:50 95 20 40 11/22/18 10:30 96 23 98/60 (73) 97 11/22/18 10:00 97 21 100/63 (75) 97 11/22/18 09:30 98 22 101/58 (72) 99 11/22/18 09:00 95 21 97/58 (71) 98 11/22/18 08:58 92 24 40 11/22/18 08:30 96 22 101/56 (71) 97 11/22/18 08:00 97.4 95 21 97/64 (75) 97 11/22/18 08:00 40 11/22/18 08:00 Mechanical Ventilator 11/22/18 07:58 96 11/22/18 07:41 97 11/22/18 07:11 96 22 40 11/22/18 07:00 97 21 107/62 (77) 97 11/22/18 07:00 97 22 107/67 (80) 98 11/22/18 06:00 95 21 97 11/22/18 05:45 96 22 103/67 (79) 98 11/22/18 05:30 94 17 107/62 (77) 97 11/22/18 05:15 95 19 105/59 (74) 96 11/22/18 05:00 94 20 96/60 (72) 97 11/22/18 05:00 95 18 40 11/22/18 05:00 Mechanical Ventilator 11/22/18 05:00 98.7 94 20 97 11/22/18 04:45 99 27 95/60 (72) 96 11/22/18 04:30 97 27 99/62 (74) 94 11/22/18 04:15 97 22 106/82 (90) 93 11/22/18 04:00 Mechanical Ventilator 11/22/18 04:00 96 20 102/62 (75) 94 11/22/18 04:00 40 11/22/18 04:00 96 11/22/18 03:45 94 18 98/56 (70) 93 11/22/18 03:30 95 20 97/55 (69) 93 11/22/18 03:15 94 20 94/59 (71) 100 11/22/18 03:00 92 19 40 11/22/18 03:00 91 19 101/74 (83) 100 11/22/18 02:45 92 18 98/56 (70) 93 11/22/18 02:30 93 18 93/55 (68) 93 11/22/18 02:15 94 19 98/57 (71) 94 11/22/18 02:00 98.7 91 18 98/58 (71) 96 11/22/18 01:45 93 18 96/58 (71) 97 11/22/18 01:30 94 18 95/57 (70) 96 11/22/18 01:15 95 20 94/59 (71) 96 11/22/18 01:10 92 18 40 11/22/18 01:00 94 19 101/56 (71) 95 11/22/18 00:45 94 18 99/54 (69) 96 11/22/18 00:30 95 19 93/55 (68) 95 11/22/18 00:15 96 20 95/57 (70) 96 11/22/18 00:00 96 11/22/18 00:00 Mechanical Ventilator 11/22/18 00:00 40 11/22/18 00:00 95 18 96/54 (68) 95 11/21/18 23:45 96 20 96/55 (69) 94 11/21/18 23:30 99 22 105/57 (73) 96 11/21/18 23:29 94 19 40 11/21/18 23:15 96 19 87/52 (64) 95 11/21/18 23:00 98 20 108/69 (82) 96 11/21/18 22:45 96 18 91/51 (64) 95 11/21/18 22:30 96 19 89/53 (65) 95 11/21/18 22:15 98 22 100/58 (72) 96 11/21/18 22:00 98 19 91/53 (66) 96 11/21/18 21:45 98 21 87/53 (64) 96 11/21/18 21:30 95 18 89/51 (64) 97 11/21/18 21:15 98 21 89/53 (65) 98 11/21/18 21:01 97 23 40 11/21/18 21:00 97 22 91/56 (68) 98 11/21/18 20:45 95 20 91/55 (67) 98 11/21/18 20:30 95 20 89/58 (68) 97 11/21/18 20:15 96 29 95/64 (74) 99 11/21/18 20:00 40 11/21/18 20:00 Mechanical Ventilator 11/21/18 20:00 95 11/21/18 20:00 95 19 92/52 (65) 98 11/21/18 19:45 97 22 94/51 (65) 98 11/21/18 19:30 95 20 92/52 (65) 98 11/21/18 19:24 94 19 40 11/21/18 19:15 98.6 97 25 95/56 (69) 99 11/21/18 19:00 94 20 88/51 (63) 99 11/21/18 18:45 97 30 90/49 (63) 99 11/21/18 18:30 96 27 90/49 (63) 99 11/21/18 18:00 97 20 98/53 (68) 98 11/21/18 17:30 98 19 93/55 (68) 97 11/21/18 17:02 98 20 40 11/21/18 17:00 100 19 91/57 (68) 100 11/21/18 16:30 98 22 98/59 (72) 99 11/21/18 16:00 Mechanical Ventilator 11/21/18 16:00 97.8 94 19 107/64 (78) 99 11/21/18 16:00 40 11/21/18 16:00 96 11/21/18 15:30 96 20 106/62 (77) 99 11/21/18 15:06 96 19 40 Intake and Output 11/21/18 11/22/18 19:00 07:00 Intake Total 3133.8 ml 1791.25 ml Output Total 1615 ml 1200 ml Balance 1518.8 ml 591.25 ml IV Total 3093.8 ml 1521.25 ml Tube Feeding 0 ml Blood Product 270 ml Other 40 ml Output Urine Total 1615 ml 1200 ml # Bowel Movements 1 Laboratory Tests 11/22/18 04:10: Stool Occult Blood Negative 11/22/18 05:45: White Blood Count 7.6, Red Blood Count 2.78L, Hemoglobin 8.5L, Hematocrit 25.8L , Mean Corpuscular Volume 93, Mean Corpuscular Hemoglobin 30.5, Mean Corpuscular Hemoglobin Concent 32.8, Red Cell Distribution Width 18.2H, Platelet Count 39L, Mean Platelet Volume 8.3, Neutrophils (%) (Auto) , Lymphocytes (%) (Auto) , Monocytes (%) (Auto) , Eosinophils (%) (Auto) , Basophils (%) (Auto) , Differential Total Cells Counted 100, Neutrophils % ( Manual) 71, Lymphocytes % (Manual) 20, Monocytes % (Manual) 8, Eosinophils % ( Manual) 1, Basophils % (Manual) 0, Band Neutrophils 0, Platelet Estimate DecreasedL, Platelet Morphology Normal, Hypochromasia 2+, Anisocytosis 2+, Spherocytes 1+, Sodium Level 137, Potassium Level 3.5, Chloride Level 103, Carbon Dioxide Level 24, Anion Gap 10, Blood Urea Nitrogen 11, Creatinine 0.7, Estimat Glomerular Filtration Rate > 60, Glucose Level 159#H, Calcium Level 9.0 , Phosphorus Level 3.7, Magnesium Level 1.6L, Ferritin > 2000H, Total Bilirubin 0.4, Aspartate Amino Transf (AST/SGOT) 29, Alanine Aminotransferase (ALT/SGPT) 40, Alkaline Phosphatase 118H, Total Protein 5.7L, Albumin 1.5L, Globulin 4.2, Albumin/Globulin Ratio 0.4L 11/22/18 09:02: Arterial Blood pH 7.425, Arterial Blood Partial Pressure CO2 39.2, Arterial Blood Partial Pressure O2 80.6, Arterial Blood HCO3 25.1, Arterial Blood Oxygen Saturation 95.3, Arterial Blood Base Excess 0.8, José Miguel Test Positive Height (Feet): 5 Height (Inches): 8.00 Weight (Pounds): 140 Objective Vitals: have been reviewed Gen: no apparent distress Head: normocephalic EENT: PERRL/EOMI Neck: supple, tracheotomy +++ Respiratory: normal breath sounds, no respiratory distress ++ trach Cardiovascular: normal rate Gastrointestinal: normal inspection, non tender, soft, normal bs, gt+++ Rectal: deferred Genitourinary: deferred Musculoskeletal: normal inspection, back normal Skin: normal color, no rash, warm/dry Lymphatic: normal inspection, no adenopathy Antonio Higgins MD Nov 22, 2018 15:08
--- NOTE | 2018-11-22 15:30 | NUR ---
NURSE NOTES: Abdominal ultrasound at the bedside. trach secretions noted to be tannish and thick, remains on FIO2 at 40% with no distress noted, will continue plan of care.
--- NOTE | 2018-11-22 15:36 | NUR ---
Social Service Note SW very familiar with patient from previous admission. Patient was DNR/DNI and family considering withdrawal of care within the 3 to 4 months period of when patient first began medical intervention. SW spoke with patient's dgt Blanche [phone]. Since patient was placed on vent Blanche will not remove vent support at this time. Dgt did state if patient is able to be weaned from vent, vent should not be reinitiated. Patient is DNR/DNI. POLST faxed to ICU and SW informed primary nurse. Will continue to reassess plan of care with family. Dr. Carter notified.
--- NOTE | 2018-11-22 15:57 | NUR ---
CONTOUR STITCHERMETALIZING MACHINE OPERATOR AUTOMATIC SI: PNEUMONIA . SEPSIS VS: BP 84/42, P 99, T 98.3, RR 35, SpO2 99 on VENT FiO2 40 Hgb 8.5, Hct 25.8, GLUCOSE 159, Mag. 1.6, ALK. PHOS 118 IS: MAGNESIUM SULFATE 100ml IVPB AMIKACIN SULFATE 113.8ml IV D5/NS x1L IV NOVOLOG SUBQ NOREPINEPHRINE 250 ml IV PIPERACILLIN SOD/TAZOBACTAM SOD /D5 110ml IV PROTONIX 40mg IV ICU STATUS
--- NOTE | 2018-11-22 16:10 | NUR ---
*-* INSURANCE *-* UPDATED REVIEW HAVE BEEN FAXED TO: [facility] PLEASE FAX THE REVIEW/CLINICALS P- [phone]...OPT-1- OPT-3 F- [phone]
[2018-11-22 16:41] LABS: HEMATOCRIT 23.6 % (42.0-52.0); HEMOGLOBIN 8.3 G/DL (14.2-18.0); MEAN CORPUSCULAR VOLUME 91 FL (80-99); PLATELET COUNT 31 K/UL (150-450); RED BLOOD COUNT 2.59 M/UL (4.70-6.10); RED CELL DISTRIBUTION WIDTH 17.8 % (11.6-14.8); WHITE BLOOD COUNT 6.8 K/UL (4.8-10.8)
--- NOTE | 2018-11-22 16:45 | NUR ---
NURSE NOTES: law office manager called to notify patient has a polst of DNR/DNI from previous admission, will notify Dr. Carter to change patient code status.
--- NOTE | 2018-11-22 17:10 | NUR ---
NURSE NOTES: Dr. Carter called to inform to place an order to change code status to DNR/DNI, also ordered to discontinue Levophed.
[2018-11-22 17:38] LABS: INR 1.1 (0.9-1.1)
--- NOTE | 2018-11-22 18:00 | NUR ---
NURSE NOTES: Dr. Higgins aware of the hgb and Plt, no orders to transfuse at this time, ordered to place a cbc for 0400 11/23/18, will continue plan of care.
[2018-11-22] MEDS ORDERED: NS 275ml ONE ×2 (18:52→19:00)
[2018-11-22] MEDS ORDERED: Tubing Blood Filter IV ONE ×2 (18:52→19:00)
[2018-11-22] MEDS ORDERED: Tubing IV Secondary IV ONE (19:00)
--- NOTE | 2018-11-22 19:10 | NUR ---
HAND-OFF: Report given to KOLE Dalal.
--- NOTE | 2018-11-22 19:14 | Cardiology Report ---
APPROVED REPORT EKG Measurement Heart [id number] Sinus tachycardia Septal infarct, age undetermined Abnormal ECG
--- NOTE | 2018-11-22 19:16 | Diagnostic Imaging Report ---
Indication: Dyspnea Comparison: 11/21/2018 A single view chest radiograph was obtained. Findings: Tracheostomy and right jugular central venous catheter appear stable. Mixed interstitial alveolar opacities demonstrated bilaterally. Accounting for differences in technique which are considerable, there does appear to be some increased edema diffusely on today's examination. Borderline cardiomegaly is stable. IMPRESSION: Suspected worsening CHF
--- NOTE | 2018-11-22 19:18 | Diagnostic Imaging Report ---
Indication:Abdominal pain Technique: Grayscale and duplex Doppler imaging of the abdomen performed. Comparison: None Findings: The liver is unremarkable. There are bilateral pleural effusions. The gallbladder is notable for wall thickening which is nonspecific. No obvious gallstones. The demonstrated part of the pancreas, aorta and IVC show no abnormalities. Both kidneys appear unremarkable. The spleen is normal in size. There is no biliary ductal dilatation identified. Doppler evaluation of the main portal vein shows patency. There is no ascites. No hydronephrosis seen. Impression: Gallbladder wall thickening, nonspecific. Bilateral pleural effusion
--- NOTE | 2018-11-22 19:30 | NUR ---
NURSE NOTES: Received the patient from Eveline Jules. Pt's now DNR. Patient nonverbal, responds to pain, resting in bed with eyes closed. In no acute distress, patient noted with trach, Shiley 6.0, to vent, settings: AC18, TV 450, FIO2 40%, PEEP 0, O2 sat 98%. No acute distress noted. SR noted on the monitor. Patient noted with Left upper abdomen G-tube. Castrejon cath intact and patent, draining yellow urine by gravity. Patient noted with sacral redness/ stage 2. Right IJ TLC intact, running D5NS at 100ml/hr. Vital signs stable. Bed in low and locked position. Call light within reach. Will continue to monitor.
[2018-11-22] MEDS: Dyna-Hex 2% Top Sol 2oz TOPIC SCH (20:21)
--- NOTE | 2018-11-22 22:00 | NUR ---
NURSE NOTES: Pt's resting in bed, in no acute distress. Started GT tube feeding Vital AF 1.2 at 10ml/hr, will advance as tolerate, goal 50ml/hr. HOB kept elevated 30degree. VS stable, afebrile. Will continue to monitor.
[2018-11-23] VITALS (29 sets, daily range): BP systolic 89–116; BP diastolic 50–82
--- NOTE | 2018-11-23 | NUR ---
NURSE NOTES: Pt's resting in bed, eyes closed, in no acute distress. VS stable. Will continue to monitor.
[2018-11-23] MEDS: Lacri-Lube Opth Oint 3.5gm BOTH EYES SCH ×4 (00:23→18:10)
[2018-11-23] MEDS: NovoLOG Insulin Flexpen SUBQ SCH ×4 (00:24→18:37)
--- NOTE | 2018-11-23 02:00 | NUR ---
NURSE NOTES: Pt's resting in bed, eyes closed, in no acute distress. VS stable. HOB kept elevated. Will continue to monitor.
[2018-11-23] MEDS: D5NS 1,000 ML IV SCH ×3 (02:37→22:53)
--- NOTE | 2018-11-23 04:00 | NUR ---
NURSE NOTES: Pt's resting in bed, eyes closed, in no acute distress. VS stable. HOB kept elevated. Will continue to monitor.
[2018-11-23 05:12] LABS: HEMATOCRIT 25.3 % (42.0-52.0); HEMOGLOBIN 8.3 G/DL (14.2-18.0); MEAN CORPUSCULAR VOLUME 93 FL (80-99); PLATELET COUNT 40 K/UL (150-450); RED BLOOD COUNT 2.71 M/UL (4.70-6.10); WHITE BLOOD COUNT 7.8 K/UL (4.8-10.8)
[2018-11-23] MEDS: Piperacillin/Tazobactam 3.375 GM in D5W 110 ML IVPB SCH ×3 (05:49→22:52)
[2018-11-23 05:50] LABS: ALANINE AMINOTRANSFERASE 35 U/L (12-78); ALBUMIN 1.5 G/DL (3.4-5.0); ALBUMIN/GLOBULIN RATIO 0.4 (1.0-2.7); ALKALINE PHOSPHATASE 160 U/L (46-116); ANION GAP 10 mmol/L (5-15); ASPARTATE AMINO TRANSFERASE 28 U/L (15-37); BILIRUBIN,TOTAL 0.4 MG/DL (0.2-1.0); BLOOD UREA NITROGEN 6 mg/dL (7-18); CALCIUM 8.8 MG/DL (8.5-10.1); CARBON DIOXIDE 26 MMOL/L (21-32); CHLORIDE 104 MMOL/L (98-107); CREATININE 0.7 MG/DL (0.55-1.30); POTASSIUM 3.2 MMOL/L (3.5-5.1); SODIUM 140 MMOL/L (136-145)
--- NOTE | 2018-11-23 06:00 | NUR ---
NURSE NOTES: Pt's resting in bed, in no acute distress. VS stable. Will continue to monitor.
--- NOTE | 2018-11-23 06:00 | Progress Note ---
DATE: 11/22/2018 SUBJECTIVE: The patient is alert and afebrile with persistent hypotension and tachycardia at rest. PHYSICAL EXAMINATION: VITAL SIGNS: Blood pressure is 89/48, his pulse is 105, respirations 22, and temperature is 98.2. HEENT: Eyes were normal. ENT, mucous membranes were moist and intact. NECK: Supple with no JVD without lymph nodes. Tracheostomy site is clean. LUNGS: Clear without rhonchi, rales, or wheezing. Secretions are small, thin, and ramirez. HEART: Normal sounds with regular beats. There is no S3, S4, or pericardial rub. ABDOMEN: Soft and nontender with normal bowel sounds. Gastrostomy site is clean. EXTREMITIES: Warm without cyanosis, clubbing, or edema. LABORATORY AND DIAGNOSTIC DATA: Hemoglobin is 8.3, hematocrit 23.2 with MCV of 91, WBC of 6.8, and platelets 71,000. His BUN and creatinine are 11 and 0.7 respectively. His sodium is 137, potassium 3.5, chloride 103, CO2 is 24. His calcium is 9. His phosphorus is 3.7 and magnesium is 1.6. His liver function tests are normal. His albumin is 1.5 and globulin is 4.2. Abdominal ultrasound is unremarkable. except to undergo blood culture and there was no . IMPRESSION: The patient remained hypotensive and tachycardic. He is currently on amikacin 5 mg/kg q.24 h. His dosing and frequency recently . Repeat laboratory tests will be done in the a.m. The patient will remain in the ICU until he is hemodynamically more stable. Repeat laboratory tests will be done in the a.m. Matt Flores M.D. DR: JAZZY JOB#: [id number] CC:
--- NOTE | 2018-11-23 07:28 | NUR ---
HAND-OFF: Report given to KOLE Coleman.
--- NOTE | 2018-11-23 07:40 | NUR ---
NURSE NOTES: Received report from Eveline Dalal. Patient in bed, nonverbal, responds to pain, does not open eyes. Patient trach to vent, Shiley 6.0, to vent, settings: AC18, TV 450, FIO2 40%, O2 sat 98%. No acute distress noted. ST noted on the monitor. G-tube running vital A.F @ 20ml/hr. Goal 50ml/hr. no residual. Castrejon cath intact and patent, draining yellow urine below bladder. Patient noted with sacral redness. skin- see assessment. Right IJ TLC intact, running d5ns @100ml/hr. VSS. contact precautions in place. bed locked in low position. will continue to monitor pt.
--- NOTE | 2018-11-23 07:55 | NUR ---
NURSE NOTES: MD FERRARI HERE TO SEE PT. NO NEW ORDERS AT THIS TIME.
--- NOTE | 2018-11-23 08:14 | NUR ---
NURSE NOTES: radiology here to do CXR
[2018-11-23] MEDS: Pantoprazole Inj IV SCH (09:29)
--- NOTE | 2018-11-23 09:36 | NUR ---
NURSE NOTES: received call from [employer] worker for [facility], asked about pt update. will receive pt to facility currently awaiting bed opening. BAKARI paperwork in process. C.N mady.
--- NOTE | 2018-11-23 09:45 | NUR ---
RADIOLOGY DEPT., CHEST X-RAY DONE.-P.DYE
--- NOTE | 2018-11-23 10:11 | NUR ---
NURSE NOTES: Md Carter here to see pt. no new orders at this time.
--- NOTE | 2018-11-23 11:24 | Pulmonolgy Critical Care Note ---
Critical Care - Asmt/Plan Problems: (1) Septic shock (2) Healthcare-associated pneumonia (3) Cerebral infarction (4) Feeding by G-tube (5) Acute metabolic encephalopathy (6) Anemia Respiratory: monitor respiratory rate, adjust FIO2, CXR Cardiac: continue to monitor HR/BP Renal: F/U I&O, keep IV fluid Infectious Disease: continue antibiotics Gastrointestinal: continue feedings/current rate Endocrine: check TSH, check HgA1C Hematologic: transfuse if hgb<8.5 Neurologic: PRN Ativan, PRN Morphine, keep patient comfortable Prophylaxis: Protonix, Heparin Notes Reviewed: cardio, renal Discussed with: nurses, consultants, clinical case managervolunteer manager - Objective Last 24 Hour Vital Signs Date Time Temp Pulse Resp B/P (MAP) Pulse Ox O2 Delivery O2 Flow Rate FiO2 11/23/18 10:00 100 27 98/61 (73) 94 95 11/23/18 09:00 97 25 92/58 (69) 95 95 11/23/18 08:45 98 23 40 11/23/18 08:00 40 11/23/18 08:00 97.6 99 28 98/55 (69) 96 95 11/23/18 08:00 100 11/23/18 07:00 100 22 91/55 (67) 95 11/23/18 06:56 99 23 40 11/23/18 06:00 98.6 102 23 96/62 (73) 94 11/23/18 05:13 101 26 40 11/23/18 05:00 98.6 103 23 89/52 (64) 94 11/23/18 04:30 103 22 92/51 (65) 95 11/23/18 04:00 Mechanical Ventilator 11/23/18 04:00 105 22 90/56 (67) 94 11/23/18 04:00 40 11/23/18 04:00 103 11/23/18 03:35 103 20 40 11/23/18 03:30 104 22 100/58 (72) 93 11/23/18 03:00 103 22 102/55 (71) 95 11/23/18 02:00 105 24 93/55 (68) 95 11/23/18 01:13 106 28 40 11/23/18 01:00 106 31 96/50 (65) 94 11/23/18 00:00 Mechanical Ventilator 11/23/18 00:00 40 11/23/18 00:00 98.6 104 22 97/53 (68) 96 11/23/18 00:00 104 11/22/18 23:26 105 22 40 11/22/18 23:00 106 25 101/53 (69) 97 11/22/18 22:00 105 24 91/52 (65) 96 11/22/18 21:05 107 22 40 11/22/18 21:00 104 21 91/54 (66) 97 11/22/18 20:00 98.5 105 23 88/47 (61) 97 11/22/18 20:00 Mechanical Ventilator 11/22/18 20:00 40 11/22/18 20:00 105 11/22/18 19:07 105 23 40 11/22/18 19:00 105 22 89/48 (62) 96 11/22/18 18:00 104 20 86/47 (60) 97 11/22/18 17:00 105 24 95/49 (64) 98 11/22/18 16:42 95 22 40 11/22/18 16:00 99 11/22/18 16:00 40 11/22/18 16:00 Mechanical Ventilator 11/22/18 16:00 98.2 100 24 94/46 (62) 98 11/22/18 15:00 99 24 87/42 (57) 98 11/22/18 14:30 98 22 40 11/22/18 14:30 100 23 91/51 (64) 97 11/22/18 14:00 99 21 93/44 (60) 97 11/22/18 13:45 99 30 90/51 (64) 98 11/22/18 13:30 90 31 139/82 (101) 99 11/22/18 13:16 99 21 40 11/22/18 13:15 100 29 98/62 (74) 99 11/22/18 13:00 98.3 97 35 96/63 (74) 97 11/22/18 13:00 96/63 11/22/18 12:45 98 31 96/60 (72) 99 11/22/18 12:30 96 27 99/58 (72) 99 11/22/18 12:15 95 22 97/58 (71) 98 11/22/18 12:00 40 11/22/18 12:00 97 37 99/57 (71) 98 11/22/18 12:00 99/57 11/22/18 12:00 Mechanical Ventilator 11/22/18 11:45 96 11/22/18 11:45 96 27 95/57 (70) 98 11/22/18 11:30 95 30 97/54 (68) 98 Status: obtunded Condition: critical HEENT: atraumatic Lungs: chest wall tender Heart: HR/BP unstable Abdomen: non-tender, feeding tube Decubiti: location, stage Accucheck: 169 Critical Care - Subjective ROS Limited/Unobtainable: No Condition: critical EKG Rhythm: Sinus Rhythm FI02: 40 Vent Support Breath Rate: 18 Vent Support Mode: AC Vent Tidal Volume: 450 Sputum Amount: Moderate PEEP: 0.0 PIP: 26 Tube Feeding Amount: 20 I&O: Intake and Output 11/22/18 11/23/18 19:00 07:00 Intake Total 1787.17 ml 1767.500 ml Output Total 1490 ml 840 ml Balance 297.17 ml 927.500 ml Intake Free Water 60 ml IV Total 1757.17 ml 1537.500 ml Tube Feeding 170 ml Other 30 ml Output Urine Total 1490 ml 840 ml # Bowel Movements 1 2 Labs: Laboratory Tests Test 11/22/18 16:00 11/23/18 03:45 White Blood Count 6.8 K/UL (4.8-10.8) 7.8 K/UL (4.8-10.8) Red Blood Count 2.59 M/UL (4.70-6.10) L 2.71 M/UL (4.70-6.10) L Hemoglobin 8.3 G/DL (14.2-18.0) L 8.3 G/DL (14.2-18.0) L Hematocrit 23.6 % (42.0-52.0) L 25.3 % (42.0-52.0) L Mean Corpuscular Volume 91 FL (80-99) 93 FL (80-99) Mean Corpuscular Hemoglobin 31.9 PG (27.0-31.0) H 30.6 PG (27.0-31.0) Mean Corpuscular Hemoglobin Concent 35.0 G/DL (32.0-36.0) 32.7 G/DL (32.0-36.0) Red Cell Distribution Width 17.8 % (11.6-14.8) H 18.0 % (11.6-14.8) H Platelet Count 31 K/UL (150-450) L 40 K/UL (150-450) L Mean Platelet Volume 7.1 FL (6.5-10.1) 8.7 FL (6.5-10.1) Neutrophils (%) (Auto) % (45.0-75.0) % (45.0-75.0) Lymphocytes (%) (Auto) % (20.0-45.0) % (20.0-45.0) Monocytes (%) (Auto) % (1.0-10.0) % (1.0-10.0) Eosinophils (%) (Auto) % (0.0-3.0) % (0.0-3.0) Basophils (%) (Auto) % (0.0-2.0) % (0.0-2.0) Differential Total Cells Counted 100 100 Neutrophils % (Manual) 64 % (45-75) 64 % (45-75) Lymphocytes % (Manual) 32 % (20-45) 22 % (20-45) Monocytes % (Manual) 2 % (1-10) 11 % (1-10) H Eosinophils % (Manual) 1 % (0-3) 3 % (0-3) Basophils % (Manual) 0 % (0-2) 0 % (0-2) Band Neutrophils 1 % (0-8) 0 % (0-8) Platelet Estimate Decreased L Decreased L Platelet Morphology Normal Normal Hypochromasia 1+ Anisocytosis 1+ 1+ Reticulocyte Count 0.6 % (0.0-2.0) Haptoglobin Pending Prothrombin Time 11.1 SEC (9.30-11.50) Prothromb Time International Ratio 1.1 (0.9-1.1) Fibrinogen 735 mg/dL (200-400) H Lactate Dehydrogenase 134 U/L (81-234) Folate 15.0 NG/ML (8.6-58.9) Sodium Level 140 MMOL/L (136-145) Potassium Level 3.2 MMOL/L (3.5-5.1) L Chloride Level 104 MMOL/L (98-107) Carbon Dioxide Level 26 MMOL/L (21-32) Anion Gap 10 mmol/L (5-15) Blood Urea Nitrogen 6 mg/dL (7-18) L Creatinine 0.7 MG/DL (0.55-1.30) Estimat Glomerular Filtration Rate > 60 mL/min (>60) Glucose Level 102 MG/DL (74-106) Calcium Level 8.8 MG/DL (8.5-10.1) Total Bilirubin 0.4 MG/DL (0.2-1.0) Aspartate Amino Transf (AST/SGOT) 28 U/L (15-37) Alanine Aminotransferase (ALT/SGPT) 35 U/L (12-78) Alkaline Phosphatase 160 U/L (46-116) H Pro-B-Type Natriuretic Peptide 3544 pg/mL (0-125) H Total Protein 5.7 G/DL (6.4-8.2) L Albumin 1.5 G/DL (3.4-5.0) L Globulin 4.2 g/dL Albumin/Globulin Ratio 0.4 (1.0-2.7) L Law Carter MD Nov 23, 2018 11:24
--- NOTE | 2018-11-23 11:31 | Diagnostic Imaging Report ---
Indication: Dyspnea Comparison: 11/22/2018 A single view chest radiograph was obtained. Findings: There is worsening airspace disease bilaterally with mid lung consolidation and the other airspace and interstitial densities. Heart size is stable. Tracheostomy and right central venous catheter unchanged. IMPRESSION: Worsening bilateral airspace disease probably due to pulmonary edema. Correlate clinically. Underlying pneumonia may be present.
--- NOTE | 2018-11-23 12:00 | NUR ---
NURSE NOTES: PT VSS. PT SUCTIONED, ORAL CARE PROVIDED. NO RESIDUAL. PT REPOSITIONED. CONTACT PRECAUTIONS IN PLACE. BED ALARM ON, BE LOCKED AND IN LOW POSITION. WILL CONTINUE TO IMPLEMENT CARE.
[2018-11-23] MEDS: Amikacin 950 MG in NS 110 ML IV SCH (12:58)
--- NOTE | 2018-11-23 13:31 | NUR ---
NURSE NOTES: called radiology for image disk possible transfer to [facility]. will have transport bring up disk when complete
--- NOTE | 2018-11-23 13:39 | NUR ---
FOUNDATION ENGINEERRED HAT OPEN STACK ADMINISTRATOR SI: PNEUMONIA . SEPSIS VS: BP 92/58, P 100, T 97.6, RR 27, SpO2 95 on VENT FiO2 40 Hgb 8.3, Hct 25.3, K 3.2, ALK. PHOS 160 CXR IMPRESSION: Worsening bilateral airspace disease probably due to pulmonary edema. Correlate clinically. Underlying pneumonia may be present. IS: MAGNESIUM SULFATE 100ml IVPB AMIKACIN SULFATE 113.8ml IV D5/NS x1L IV NOVOLOG SUBQ NOREPINEPHRINE 250 ml IV PIPERACILLIN SOD/TAZOBACTAM SOD /D5 110ml IV PROTONIX 40mg IV ICU STATUS
--- NOTE | 2018-11-23 13:41 | NUR ---
HEARING AID REPAIRER NOTES SPOKE WITH JP FROM INSURANCE, NO BEDS AVAILABLE AT [facility] AT THIS TIME.
--- NOTE | 2018-11-23 13:44 | NUR ---
*-* INSURANCE *-* ALL CLINICAL HAVE BEEN FAXED TO: [facility] PLEASE FAX THE REVIEW/CLINICALS P- [phone]...OPT-1- OPT-3 F- [phone]
[2018-11-23] MEDS ORDERED: D5NS 1000ml IV ONE ×2 (14:44→14:46)
--- NOTE | 2018-11-23 15:45 | Progress Note ---
DATE: 11/22/2018 CARDIOLOGY PROGRESS NOTE SUBJECTIVE: Condition improving, but the patient remains hypotensive and requiring pressors and norepinephrine dose, however, he is being tapered down and off. The patient remains on ventilator support via trach. He is status post transfusions of packed red blood cells. OBJECTIVE: VITAL SIGNS: Blood pressure 88/47, pulse 105, respiratory rate 23, afebrile. Monitored rhythm, sinus tachycardia. LUNGS: Coarse breath sounds. Few rales. HEART: Regular rhythm. Rapid rate. Normal S1, S2. ABDOMEN: Soft. G-tube intact. EXTREMITIES: Trace edema. LABORATORY DATA: White count 6.8, hemoglobin 8.3. ABG, pH 7.42, pCO2 39, pO2 80. Potassium 3.5, BUN 11, creatinine 0.7. Albumin is 1.5. Magnesium 1.6. IMPRESSION: 1. Shock. 2. Sepsis. 3. Respiratory failure. 4. Hypomagnesemia. 5. Myocardial ischemia. 6. Sinus tachycardia. 7. Acute diastolic congestive heart failure. PLAN: 1. Antimicrobials. 2. Taper off pressors. 3. Continue IV fluids. 4. IV magnesium. 5. Defer diuresis until off pressor support. 6. Transfuse for hemoglobin less than 7 g/dL. Jorge A Morales M.D. : Brian JOB#: [id number] CC:
--- NOTE | 2018-11-23 15:53 | NUR ---
NURSE NOTES: pt family and friends at bedside. pt in no acute distress. will continue to monitor pt.
--- NOTE | 2018-11-23 17:59 | NUR ---
NURSE NOTES: Pt's resting in bed, in no acute distress. VS stable. HOB kept elevated. Will continue to monitor.
--- NOTE | 2018-11-23 19:00 | NUR ---
NURSE NOTES: Received order from MD Carter to replace k 3.2 with 20meq GT once.
--- NOTE | 2018-11-23 19:38 | NUR ---
HAND-OFF: Report given to janett. endorsed f/u with DC. pt in no acute distress.
--- NOTE | 2018-11-23 19:40 | NUR ---
NURSE NOTES: Received report from KOLE Coleman. Patient in bed, nonverbal, responds to pain, does not open eyes. Patient trach to vent, Shiley 6.0, to vent, settings: AC18, TV 450, FIO2 40%, O2 sat 100%. No acute distress noted. SR noted on the monitor HR 95. G-tube running vital A.F @ 40ml/hr. Goal 50ml/hr. 15 residual. Castrejon cath intact and patent, draining yellow urine. Patient noted with sacral dressing. On P200 for wound management. Right IJ TLC intact, running D5NS @100ml/hr. contact precautions maintained and observed. SCD on.bed locked in low position. will continue to monitor pt.
--- NOTE | 2018-11-23 20:16 | General Progress Note ---
Assessment/Plan Assessment/Plan Assessment and Recs: # Anemia of chronic disease -- panel has been ordered and reviewed, ferritin is >1000, tibc is low --> maintain hgb above 7 --> panel reviewd, no hemolysis, peripheral smear is wnl --> monitor for bleeding --> gi recs appreciated --> would hold off any iron at this time --> cea is 7.8 # Thrombocytopenia - potential causes multifactorial, at this time, likely due to infection --> Hep panel and HIV negative from prior admission --> US abd to evaluate for cirrhosis and hsm ordered is negative for ascites --> Peripheral smear ordered to evaluate for blasts /schistocytes does show some mild bandemia and immature cells --> flow ordered --> abx and other meds have been reviewed --> ok for ppx if plt >50k w/ either heparin or lovenox --> Transfuse if Plt < 20k and fever, or if Plt < 10k without fever # Coagulopathy - potentailly related to decreased po intake --> consider vit K prior to any proecedure --> ffp as well if patient bleeds # Gastrostomy tube dependent --> started tube feeds # Rectal tube in place from before --> wound care # Clostridium difficile diarrhea --> s.p prior rx # Dehydration # Iron deficiency # Tracheostomy ++ --> per pulm recs # Encephalopathy The timing of this note does not necessarily reflect the time of the patient was seen. Greatly appreciate consultation! Subjective Constitutional: Denies: no symptoms, chills, diaphoresis, fever, malaise, weakness, other HEENT: Denies: no symptoms, eye pain, blurred vision, tearing, double vision, ear pain, ear discharge, nose pain, nose congestion, throat pain, throat swelling, mouth pain, mouth swelling, other Cardiovascular: Denies: no symptoms, chest pain, edema, irregular heart rate, lightheadedness, palpitations, syncope, other Respiratory: Denies: no symptoms, cough, orthopnea, shortness of breath, SOB with excertion, SOB at rest, sputum, stridor, wheezing, other Genitourinary: Denies: no symptoms, burning, discharge, frequency, flank pain, hematuria, incontinence, pain, urgency, other Neurologic/Psychiatric: Denies: no symptoms, anxiety, depressed, emotional problems, headache, numbness, paresthesia, pre-existing deficit, seizure, tingling, tremors, weakness, other Hematologic/Lymphatic: Denies: no symptoms, anemia, easy bleeding, easy bruising, other Allergies: Coded Allergies: No Known Allergies (Unverified , 10/11/18) Subjective 11/22: plts are lower today as is cbc/hgb, trending closely, low threshold to transfusion 11/23: k is low, no fevers, no chills, cbc reviewed, plt remains low Objective Last 24 Hour Vital Signs Date Time Temp Pulse Resp B/P (MAP) Pulse Ox O2 Delivery O2 Flow Rate FiO2 11/23/18 19:07 94 22 40 40 11/23/18 19:00 94 22 101/57 (72) 95 11/23/18 18:00 95 24 104/60 (75) 95 11/23/18 17:18 94 23 40 11/23/18 17:00 93 23 109/82 (91) 96 11/23/18 16:00 Mechanical Ventilator 11/23/18 16:00 95 11/23/18 16:00 98.0 93 24 103/59 (74) 97 11/23/18 16:00 40 11/23/18 15:05 93 26 40 11/23/18 15:00 92 20 96/59 (71) 96 11/23/18 14:00 93 21 100/60 (73) 97 11/23/18 13:30 94 22 40 11/23/18 13:00 91 20 105/66 (79) 96 11/23/18 12:00 40 11/23/18 12:00 93 11/23/18 12:00 97.6 93 21 101/63 (76) 95 11/23/18 12:00 Mechanical Ventilator 11/23/18 11:13 99 22 40 11/23/18 11:00 94 22 102/61 (75) 96 11/23/18 10:00 100 27 98/61 (73) 94 11/23/18 09:00 97 25 92/58 (69) 95 11/23/18 08:45 98 23 40 11/23/18 08:00 40 11/23/18 08:00 97.6 99 28 98/55 (69) 96 11/23/18 08:00 Mechanical Ventilator 11/23/18 08:00 100 11/23/18 07:00 100 22 91/55 (67) 95 11/23/18 06:56 99 23 40 11/23/18 06:00 98.6 102 23 96/62 (73) 94 11/23/18 05:13 101 26 40 11/23/18 05:00 98.6 103 23 89/52 (64) 94 11/23/18 04:30 103 22 92/51 (65) 95 11/23/18 04:00 Mechanical Ventilator 11/23/18 04:00 105 22 90/56 (67) 94 11/23/18 04:00 40 11/23/18 04:00 103 11/23/18 03:35 103 20 40 11/23/18 03:30 104 22 100/58 (72) 93 11/23/18 03:00 103 22 102/55 (71) 95 11/23/18 02:00 105 24 93/55 (68) 95 11/23/18 01:13 106 28 40 11/23/18 01:00 106 31 96/50 (65) 94 11/23/18 00:00 Mechanical Ventilator 11/23/18 00:00 40 11/23/18 00:00 98.6 104 22 97/53 (68) 96 11/23/18 00:00 104 11/22/18 23:26 105 22 40 11/22/18 23:00 106 25 101/53 (69) 97 11/22/18 22:00 105 24 91/52 (65) 96 11/22/18 21:05 107 22 40 11/22/18 21:00 104 21 91/54 (66) 97 Intake and Output 11/22/18 11/23/18 19:00 07:00 Intake Total 1787.17 ml 1767.500 ml Output Total 1490 ml 840 ml Balance 297.17 ml 927.500 ml Intake Free Water 60 ml IV Total 1757.17 ml 1537.500 ml Tube Feeding 170 ml Other 30 ml Output Urine Total 1490 ml 840 ml # Bowel Movements 1 2 Laboratory Tests 11/23/18 03:45: White Blood Count 7.8, Red Blood Count 2.71L, Hemoglobin 8.3L, Hematocrit 25.3L , Mean Corpuscular Volume 93, Mean Corpuscular Hemoglobin 30.6, Mean Corpuscular Hemoglobin Concent 32.7, Red Cell Distribution Width 18.0H, Platelet Count 40L, Mean Platelet Volume 8.7, Neutrophils (%) (Auto) , Lymphocytes (%) (Auto) , Monocytes (%) (Auto) , Eosinophils (%) (Auto) , Basophils (%) (Auto) , Differential Total Cells Counted 100, Neutrophils % ( Manual) 64, Lymphocytes % (Manual) 22, Monocytes % (Manual) 11H, Eosinophils % ( Manual) 3, Basophils % (Manual) 0, Band Neutrophils 0, Platelet Estimate DecreasedL, Platelet Morphology Normal, Anisocytosis 1+, Sodium Level 140, Potassium Level 3.2L, Chloride Level 104, Carbon Dioxide Level 26, Anion Gap 10 , Blood Urea Nitrogen 6L, Creatinine 0.7, Estimat Glomerular Filtration Rate > 60, Glucose Level 102, Calcium Level 8.8, Total Bilirubin 0.4, Aspartate Amino Transf (AST/SGOT) 28, Alanine Aminotransferase (ALT/SGPT) 35, Alkaline Phosphatase 160H, Pro-B-Type Natriuretic Peptide 3544H, Total Protein 5.7L, Albumin 1.5L, Globulin 4.2, Albumin/Globulin Ratio 0.4L Height (Feet): 5 Height (Inches): 8.00 Weight (Pounds): 141 Objective Vitals: have been reviewed Gen: no apparent distress Head: normocephalic EENT: PERRL/EOMI Neck: supple, tracheotomy +++ Respiratory: normal breath sounds, no respiratory distress ++ trach Cardiovascular: normal rate Gastrointestinal: normal inspection, non tender, soft, normal bs, gt+++ Rectal: deferred Genitourinary: deferred Musculoskeletal: normal inspection, back normal Skin: normal color, no rash, warm/dry Lymphatic: normal inspection, no adenopathy Antonio Higgins MD Nov 23, 2018 20:16
[2018-11-23] MEDS: Dyna-Hex 2% Top Sol 2oz TOPIC SCH (20:17)
--- NOTE | 2018-11-23 21:00 | NUR ---
NURSE NOTES: CHG bath given tolerated well. With x1 lose pasty small black stool. Repositioned. kept clean and dry. WILL continue plan of care.
--- NOTE | 2018-11-23 23:30 | NUR ---
NURSE NOTES: Seen and examined by Dr. Flores.
[2018-11-24] VITALS (27 sets, daily range): BP systolic 89–136; BP diastolic 48–92
[2018-11-24] MEDS: Lacri-Lube Opth Oint 3.5gm BOTH EYES SCH ×4 (01:02→17:13)
[2018-11-24] MEDS: NovoLOG Insulin Flexpen SUBQ SCH ×4 (01:04→17:15)
--- NOTE | 2018-11-24 01:15 | NUR ---
NURSE NOTES: Dr. Morales placed an order noted and carried out.
--- NOTE | 2018-11-24 01:30 | Progress Note ---
DATE: 11/23/2018 CARDIOLOGY PROGRESS NOTE SUBJECTIVE: The patient remains in the intensive care unit on ventilator support. OBJECTIVE: VITAL SIGNS: Blood pressure parameters are tenuous in the range of 90 systolic. Monitored rhythm sinus with atrial ectopy. LUNGS: Bilateral breath sounds. Scattered rhonchi plus secretions. HEART: Regular rhythm and rate. Normal S1, S2. ABDOMEN: Soft. G-tube intact. EXTREMITIES: Trace edema LABORATORY DATA: Chest x-ray reveals worsening airspace disease and pulmonary edema. Hemoglobin 8.3. Pro-natriuretic peptide increased to 3500. Albumin 1.5. Potassium 3.2. IMPRESSION: 1. Respiratory failure. 2. Sepsis with shock. 3. Worsening pulmonary edema. 4. Protein-calorie malnutrition that is severe. PLAN: 1. Initiate diuresis. 2. Taper pressors. 3. Potassium replacement. 4. Recheck magnesium. 5. Ventilator support, antimicrobials, and respiratory hygiene. Jorge A Morales M.D. DR: SABRA JOB#: [id number] CC:
--- NOTE | 2018-11-24 03:15 | NUR ---
NURSE NOTES: Repositioned. HOB elevated/ Suctioned and oral care provided.
--- NOTE | 2018-11-24 04:00 | NUR ---
NURSE NOTES: Fi02 60% satting 97 %. Oral care and suctioned. Code status DNR/DNI. Comfort measure provided. Castrejon draining. Right IJ intact running D5NS at 100cc/hr.
[2018-11-24 05:21] LABS: HEMATOCRIT 26.3 % (42.0-52.0); HEMOGLOBIN 8.8 G/DL (14.2-18.0); MEAN CORPUSCULAR VOLUME 93 FL (80-99); PLATELET COUNT 50 K/UL (150-450); RED BLOOD COUNT 2.83 M/UL (4.70-6.10); RED CELL DISTRIBUTION WIDTH 17.5 % (11.6-14.8); WHITE BLOOD COUNT 9.6 K/UL (4.8-10.8)
[2018-11-24 05:59] LABS: ALANINE AMINOTRANSFERASE 33 U/L (12-78); ALBUMIN 1.6 G/DL (3.4-5.0); ALBUMIN/GLOBULIN RATIO 0.4 (1.0-2.7); ALKALINE PHOSPHATASE 199 U/L (46-116); ANION GAP 7 mmol/L (5-15); ASPARTATE AMINO TRANSFERASE 25 U/L (15-37); BILIRUBIN,TOTAL 0.4 MG/DL (0.2-1.0); BLOOD UREA NITROGEN 5 mg/dL (7-18); CALCIUM 8.9 MG/DL (8.5-10.1); CARBON DIOXIDE 30 MMOL/L (21-32); CHLORIDE 103 MMOL/L (98-107); CREATININE 0.7 MG/DL (0.55-1.30); POTASSIUM 3.2 MMOL/L (3.5-5.1); SODIUM 140 MMOL/L (136-145)
--- NOTE | 2018-11-24 06:00 | NUR ---
NURSE NOTES: Patient in bed resting. No s/s of acute distress noted. HOB elevated. Blood glucose 125mg/dl Novolog insulin given per sliding scale. GT intact with 15cc residual. Contact isolation maintained and observed. Repositioned.Will continue plan of care.
[2018-11-24] MEDS: Piperacillin/Tazobactam 3.375 GM in D5W 110 ML IVPB SCH ×3 (06:04→22:34)
--- NOTE | 2018-11-24 07:15 | Progress Note ---
DATE: 11/23/2018 SUBJECTIVE: The patient is afebrile and hemodynamically stable. PHYSICAL EXAMINATION: VITAL SIGNS: Blood pressure 110/61, his pulse is 94, respirations of 23, and temperature is 98. HEENT: Eyes were normal. ENT, mucous membranes were moist and intact. NECK: Supple with no JVD without lymph nodes. Tracheostomy site is clean. LUNGS: Clear without rhonchi, rales, or wheezing. Secretions are small, thin, and cunningham. HEART: Normal sounds with regular beats. There is no S3, S4, or pericardial rub. ABDOMEN: Soft and nontender with normal bowel sounds. Gastrostomy site is clean. EXTREMITIES: Warm without cyanosis, clubbing, or edema. LABORATORY DATA: Hemoglobin is 8.3, hematocrit 25.3 with MCV of 93, WBC 7.8, and platelets are 40,000. His BUN and creatinine is and 0.7 respectively. His sodium is 140, potassium 3.2, chloride 104, and CO2 25. SGOT and SGPT are normal. Alkaline phosphatase is . His ProBNP is 3500. IMPRESSION: The patient's condition is markedly improved. and WBC are trending down. PLAN: Repeat CBC will be done in the a.m. The patient . She will be discharged back to the extended care facility. Matt Flores M.D. DR: JAZZY JOB#: [id number] CC:
--- NOTE | 2018-11-24 07:24 | NUR ---
RESPIRATORY NOTE: Patient received mechanically ventilated on PB840 with current ordered vent settings: AC 18-450ml-60%FiO2. Patient has trach size 6.0 Shiley cuffed that is secured with trach tie and guard. Breath sounds are coarse bilaterally. Moderate amount of thin ramirez yellow secretions were suctioned without incident. Vent alarms are functional and audible, an ambu bag available at the bedside and the vent is plugged into a red outlet. Will continue to monitor. Will continue to monitor.
--- NOTE | 2018-11-24 07:30 | NUR ---
HAND-OFF: Report given to Moshe SHARIF.
--- NOTE | 2018-11-24 07:45 | NUR ---
NURSE NOTES: Received the patient from KOLE Perez. Patient is nonverbal, responds to pain, resting in bed with eyes closed. Trach to vent, Shiley 6.0. settings: AC18, TV450, FIO2 60%, PEEP 0, O2 sat 98%. No acute distress noted. SR noted on the monitor. afebrile. Gtube intact, running Vital AF at 50ml/hr. HOB elevated. Castrejon cath intact and patent, running yellow urine by gravity. Patient on P200, noted with sacral wound dressing. Right IJ TLC intact, running D5NS at 100ml/hr. dressing i/c/d. SCDs on bilateral lower extremities. Bed in lowest position, locked, side rails upx3. Bed alarm on. Will continue to monitor.
--- NOTE | 2018-11-24 08:55 | NUR ---
RADIOLOGY DEPT., CHEST X-RAY DONE.-P.DYE
[2018-11-24] MEDS: D5NS 1,000 ML IV SCH ×2 (08:57→11:03)
[2018-11-24] MEDS: Pantoprazole Inj IV SCH (08:57)
--- NOTE | 2018-11-24 09:04 | NUR ---
FURNACE COMBUSTION ANALYSTMODELING AGENT SI:PNE . SEPSIS VS: BP 89/48, P 100, T 97.9, RR 31, SpO2 98 on ETT AC 18, TV , PEEP 450, FiO2 60 K 3.2, BUN 5 MAG. 1.6, ALK PHOS. 199, RBC 2.83, Hgb 8.8, Hct 26.3 CXR IMPRESSION: Worsening bilateral airspace disease probably due to pulmonary edema. Correlate clinically. Underlying pneumonia may be present. IS:LASIX 40mg IV K-DUR 40meq GT AMIKACIN SULFATE 113.8ml IV D5/NS x1L IV NOVOLOG SUBQ PIPERACILLIN SOD/TAZOBACTAM SOD/ D5 110ml IV PROTONIX 40mg IV ICU STATUS
--- NOTE | 2018-11-24 10:00 | NUR ---
NURSE NOTES: Patient was turned and repositioned. VSS.
--- NOTE | 2018-11-24 10:26 | NUR ---
WASHERETTE MACHINE OPERATOR NOTES SPOKE WITH JP FROM [facility], TELEPHONE REVIEW GIVEN. NO BEDS AVAILABLE @ THIS TIME FOR TRANSFER.
--- NOTE | 2018-11-24 10:40 | NUR ---
NURSE NOTES: Informed Dr. Carter regarding low K and Mg. MD to see the patient.
[2018-11-24] MEDS: Amikacin 950 MG in NS 110 ML IV SCH (11:32)
--- NOTE | 2018-11-24 12:14 | NUR ---
*-* INSURANCE *-* ALL CLINICAL HAVE BEEN FAXED TO: [facility] PLEASE FAX THE REVIEW/CLINICALS P- [phone]...OPT-1- OPT-3 F- [phone]
--- NOTE | 2018-11-24 12:20 | NUR ---
NURSE NOTES: Patient had black loose stool x1, patient kept clean and dry.
--- NOTE | 2018-11-24 13:01 | Diagnostic Imaging Report ---
Indication: Dyspnea Comparison: 11/23/2018 A single view chest radiograph was obtained. Findings: Tubes and lines are stable. Extensive consolidation bilaterally unchanged. There is a left pleural effusion noted. Heart size is stable. IMPRESSION: No change director one day
--- NOTE | 2018-11-24 13:58 | NUR ---
EVP NOTES RECEIVED A CALL FROM JP FROM [facility]. NO BED ASSIGNMENT AT THIS TIME. TRANSPORTATION TO BE USED THE CAR. WAITING FOR AUTHORIZATION TO BE FAXED AND BED. WILL FOLLOW UP.
--- NOTE | 2018-11-24 14:30 | NUR ---
NURSE NOTES: Patient resting in bed comfortably. No acute distress noted. VSS. Patient tolerating tube feeding.
--- NOTE | 2018-11-24 15:07 | NUR ---
RD ASSESSMENT & RECOMMENDATIONS SEE CARE ACTIVITY FOR COMPLETE ASSESSMENT DAILY ESTIMATED NEEDS: Needs based on Critical care, underweight, wound 51kg 25-30 kcals/kg 5551-0359 total kcals 1.25-2 g protein/kg 64-102 g total protein 25-30 mL/kg 2957-9075 total fluid mLs NUTRITION DIAGNOSIS: 1) Swallowing difficulty r/t respiratory status as evidenced by pt is vent dep via trach, PEG dep for all nutritional needs 2) Altered nutrition related lab values R/T diabetes, clinical condition as evidenced by A1C of 7.1, low Hgb (7.5), elev BNP(2152-> 4168), low K(3.2), low Mg (1.6). 3) Increased pro needs r/t wound healing as evidenced by pt w/ partial thickness pressure injury to R buttock. CURRENT TF:Vital AF 1.2 @50ml/hr ENTERAL NUTRITION RECOMMENDATIONS: VITAL AF 1.2 @50ml/hr x24 hrs to provide 1200ml, 1440 kcal (28kcal/kg), 90g prot (1.7g/kg), 973ml free H2O - Maintain w/ hemodynamic stability Vital 1.2 @50ml/hr for 24hrs. - Flush per MD. HOB over 30 degrees ADDITIONAL RECOMMENDATIONS: 1) RE-calibrate bed scale w/ added P200 mattress + pump PER SNF: 112#, 66 inches tall 2) F/up w/ WC eval for sacral redness-> ADD JANUARY BID + Vit C 250mg daily 3) Monitor lytes, replete as needed 4) Feed w/ hemodynamic stability . .
--- NOTE | 2018-11-24 16:19 | NUR ---
NURSE NOTES: Oral care and conrad care performed, suctioned. Patient was turned and repositioned. VSS, afebrile. Patient tolerating tube feeding. HOB kept elevated.
--- NOTE | 2018-11-24 16:36 | General Progress Note ---
Assessment/Plan Assessment/Plan Assessment and Recs: # Thrombocytopenia - potential causes multifactorial, at this time, likely due to infection, Peripheral smear ordered to evaluate for blasts /schistocytes does show some mild bandemia and immature cells --> flow cytometry reviewed and is negative for abnormal clonal population --> Hep panel and HIV negative from prior admission --> US abd to evaluate for cirrhosis and hsm ordered is negative for ascites --> abx and other meds have been reviewed --> ok for ppx if plt >50k w/ either heparin or lovenox --> Transfuse if Plt < 20k and fever, or if Plt < 10k without fever # Anemia of chronic disease -- panel has been ordered and reviewed, ferritin is >1000, tibc is low --> maintain hgb above 7 --> panel reviewed, no hemolysis, peripheral smear is wnl --> monitor for bleeding --> gi recs appreciated --> would hold off any iron at this time --> cea is 7.8 # Coagulopathy - potentailly related to decreased po intake --> consider vit K prior to any proecedure --> ffp as well if patient bleeds # Gastrostomy tube dependent --> started tube feeds # Rectal tube in place from before --> wound care # Clostridium difficile diarrhea --> s.p prior rx # Dehydration # Iron deficiency # Tracheostomy ++/vent --> per pulm recs # Encephalopathy The timing of this note does not necessarily reflect the time of the patient was seen. Greatly appreciate consultation! Subjective Constitutional: Denies: no symptoms, chills, diaphoresis, fever, malaise, weakness, other HEENT: Denies: no symptoms, eye pain, blurred vision, tearing, double vision, ear pain, ear discharge, nose pain, nose congestion, throat pain, throat swelling, mouth pain, mouth swelling, other Cardiovascular: Denies: no symptoms, chest pain, edema, irregular heart rate, lightheadedness, palpitations, syncope, other Respiratory: Denies: no symptoms, cough, orthopnea, shortness of breath, SOB with excertion, SOB at rest, sputum, stridor, wheezing, other Gastrointestinal/Abdominal: Denies: no symptoms, abdomen distended, abdominal pain, black stools, tarry stools, blood in stool, constipated, diarrhea, difficulty swallowing, nausea, poor appetite, poor fluid intake, rectal bleeding , vomiting, other Neurologic/Psychiatric: Denies: no symptoms, anxiety, depressed, emotional problems, headache, numbness, paresthesia, pre-existing deficit, seizure, tingling, tremors, weakness, other Endocrine: Denies: no symptoms, excessive sweating, flushing, intolerance to cold, intolerance to heat, increased hunger, increased thirst, increased urine, unexplained weight gain, unexplained weight loss, other Hematologic/Lymphatic: Denies: no symptoms, anemia, easy bleeding, easy bruising, other Allergies: Coded Allergies: No Known Allergies (Unverified , 10/11/18) Subjective 11/22: plts are lower today as is cbc/hgb, trending closely, low threshold to transfusion 11/23: k is low, no fevers, no chills, cbc reviewed, plt remains low 11/24: no events, cbc reviewed, trach to vent, repositioned today Objective Last 24 Hour Vital Signs Date Time Temp Pulse Resp B/P (MAP) Pulse Ox O2 Delivery O2 Flow Rate FiO2 11/24/18 16:00 50 11/24/18 16:00 Mechanical Ventilator 11/24/18 16:00 98.1 99 27 104/55 (71) 97 11/24/18 15:04 50 11/24/18 15:00 100 30 101/61 (74) 97 11/24/18 14:34 97 25 60 11/24/18 14:00 96 33 100/57 (71) 99 11/24/18 13:01 91 28 60 11/24/18 13:00 93 26 91/53 (66) 99 11/24/18 12:00 98.4 103 31 93/54 (67) 99 11/24/18 12:00 60 11/24/18 12:00 Mechanical Ventilator 11/24/18 12:00 104 11/24/18 11:08 104 28 60 11/24/18 11:00 100 23 98/53 (68) 99 11/24/18 10:00 98 29 90/53 (65) 99 11/24/18 09:01 101 22 60 11/24/18 09:00 102 26 95/51 (66) 99 11/24/18 08:00 60 11/24/18 08:00 102 11/24/18 08:00 Mechanical Ventilator 11/24/18 08:00 98.1 100 23 95/56 (69) 98 11/24/18 07:24 98 28 60 40 11/24/18 07:00 99 23 89/48 (62) 98 11/24/18 06:00 99 24 90/50 (63) 99 11/24/18 05:00 98 22 90/52 (65) 96 11/24/18 04:38 99 18 60 40 11/24/18 04:30 98 23 92/53 (66) 97 11/24/18 04:00 98 11/24/18 04:00 97.9 103 29 93/59 (70) 94 11/24/18 04:00 60 11/24/18 04:00 Mechanical Ventilator 11/24/18 03:00 107 25 114/66 (82) 95 11/24/18 02:47 109 31 60 40 11/24/18 02:30 109 29 136/78 (97) 100 11/24/18 02:00 113 27 134/92 (106) 97 11/24/18 01:00 98.0 93 25 108/57 (74) 94 11/24/18 00:40 92 26 40 40 11/24/18 00:30 93 22 106/62 (77) 94 11/24/18 00:00 Mechanical Ventilator 11/24/18 00:00 93 23 106/58 (74) 94 11/24/18 00:00 93 11/23/18 23:03 94 22 40 40 11/23/18 23:00 94 23 108/64 (79) 96 11/23/18 23:00 108/64 11/23/18 22:30 94 23 110/61 (77) 96 11/23/18 22:00 92 22 106/66 (79) 96 11/23/18 21:30 93 24 106/67 (80) 96 11/23/18 21:00 93 24 109/71 (84) 96 11/23/18 21:00 95 22 40 40 11/23/18 20:30 101 19 116/73 (87) 100 11/23/18 20:00 97.9 93 23 101/58 (72) 97 11/23/18 20:00 Mechanical Ventilator 11/23/18 20:00 40 11/23/18 20:00 96 11/23/18 19:07 94 22 40 40 11/23/18 19:00 94 22 101/57 (72) 95 11/23/18 18:00 95 24 104/60 (75) 95 11/23/18 17:18 94 23 40 11/23/18 17:00 93 23 109/82 (91) 96 Intake and Output 11/23/18 11/24/18 19:00 07:00 Intake Total 1760.0 ml 2045.0 ml Output Total 840 ml 2910 ml Balance 920.0 ml -865.0 ml Intake Free Water 60 ml 150 ml IV Total 1330.0 ml 1305.0 ml Tube Feeding 370 ml 590 ml Output Urine Total 840 ml 2910 ml # Bowel Movements 6 4 Laboratory Tests 11/23/18 21:30: Stool Occult Blood Negative 11/24/18 04:30: White Blood Count 9.6, Red Blood Count 2.83L, Hemoglobin 8.8L, Hematocrit 26.3L , Mean Corpuscular Volume 93, Mean Corpuscular Hemoglobin 31.0, Mean Corpuscular Hemoglobin Concent 33.4, Red Cell Distribution Width 17.5H, Platelet Count 50L, Mean Platelet Volume 8.0, Neutrophils (%) (Auto) , Lymphocytes (%) (Auto) , Monocytes (%) (Auto) , Eosinophils (%) (Auto) , Basophils (%) (Auto) , Differential Total Cells Counted 100, Neutrophils % ( Manual) 79H, Lymphocytes % (Manual) 13L, Monocytes % (Manual) 7, Eosinophils % ( Manual) 1, Basophils % (Manual) 0, Band Neutrophils 0, Platelet Estimate DecreasedL, Platelet Morphology Normal, Anisocytosis 1+, Sodium Level 140, Potassium Level 3.2L, Chloride Level 103, Carbon Dioxide Level 30, Anion Gap 7, Blood Urea Nitrogen 5L, Creatinine 0.7, Estimat Glomerular Filtration Rate > 60 , Glucose Level 103, Calcium Level 8.9, Magnesium Level 1.6L, Total Bilirubin 0.4, Aspartate Amino Transf (AST/SGOT) 25, Alanine Aminotransferase (ALT/SGPT) 33, Alkaline Phosphatase 199H, Pro-B-Type Natriuretic Peptide 4168H, Total Protein 6.1L, Albumin 1.6L, Globulin 4.5, Albumin/Globulin Ratio 0.4L Height (Feet): 5 Height (Inches): 8.00 Weight (Pounds): 138 Objective Vitals: have been reviewed Gen: no apparent distress Head: normocephalic EENT: PERRL/EOMI Neck: supple, tracheotomy +++ Respiratory: normal breath sounds, no respiratory distress ++ trach Cardiovascular: normal rate Gastrointestinal: normal inspection, non tender, soft, normal bs, gt+++ Rectal: deferred Genitourinary: deferred Musculoskeletal: normal inspection, back normal Skin: normal color, no rash, warm/dry Lymphatic: normal inspection, no adenopathy Antonio Higgins MD Nov 24, 2018 16:35
--- NOTE | 2018-11-24 17:20 | Diagnostic Imaging Report ---
Indication: Dyspnea Comparison: 11/20/2018 A single view chest radiograph was obtained. Findings: Patchy alveolar airspace and interstitial opacities again noted. The airspace opacities are seen in the right midlung and left upper lobe. Cardiomegaly is present. The left hemidiaphragm is better visualized currently. Right jugular line and tracheostomy again noted. IMPRESSION: Mixed interstitial alveolar disease probably on the basis of pulmonary edema with the possibility of superimposed pneumonia.
--- NOTE | 2018-11-24 17:30 | NUR ---
NURSE NOTES: FIO2 decreased to 40% per RT, O2 sat 95%. No acute distress noted.
--- NOTE | 2018-11-24 17:45 | NUR ---
NURSE NOTES: Patient had black loose stoolx1, sacral dressing was changed. patient kept clean and dry.
--- NOTE | 2018-11-24 19:16 | NUR ---
RESPIRATORY NOTE: Received pt on AC 18, 450VT, 40%, no PEEP. Pt trach-dependent w/ a cuffed, Shiley 6 tube. Pt is asleep/disoriented. B/S man. rhonchi, sxn small to moderate amounts of thick, ramirez-yellow secretions. Vent plugged into red outlet, ambubag at bedside. Pt in no apparent distress at this time. Will continue plan of care.
--- NOTE | 2018-11-24 19:20 | NUR ---
HAND-OFF: Report given to KOLE Perez.
--- NOTE | 2018-11-24 19:30 | NUR ---
NURSE NOTES: Received report from KOLE [place]. Patient in bed, nonverbal, responds to pain, does not open eyes. Patient trach to vent, Shiley 6.0, to vent, settings: AC18, TV 450, FIO2 40%, no peep O2 sat 100%. No acute distress noted. SR noted on the monitor HR 98. G-tube running vital A.F @ 50ml/hr 10cc residual. Castrejon cath intact and patent, draining yellow urine. Patient noted with sacral dressing. On P200 for wound management. Right IJ TLC intact, running D5NS @50ml/hr. contact precautions maintained and observed. SCD on.bed locked in low position. will continue plan of care.
[2018-11-24] MEDS: Dyna-Hex 2% Top Sol 2oz TOPIC SCH (19:51)
--- NOTE | 2018-11-24 21:30 | NUR ---
NURSE NOTES: CHG bath given tolerated well. Repositioned. No s/s of acute distress noted. Code status DNR/DNI. Comfort measure provided. will continue plan of care.
--- NOTE | 2018-11-24 23:30 | Progress Note ---
DATE: 11/24/2018 CARDIOLOGY PROGRESS NOTE SUBJECTIVE: The patient remains intubated via tracheostomy on mechanical ventilator. Blood pressure parameters were slowly improving. Monitored rhythm sinus and sinus tachycardia. Pressors are being tapered off. PHYSICAL EXAMINATION: LUNGS: Coarse breath sounds. Few rhonchi. HEART: Regular rhythm and rate. Normal S1, S2. ABDOMEN: Soft. G-tube intact. EXTREMITIES: Trace edema. DIAGNOSTIC AND LABORATORY DATA: Today's chest x-ray reveals consolidation and left pleural effusion. Labs notable for white count 9.6, hemoglobin 8.8. Potassium 3.2, magnesium 1.6. IMPRESSION: 1. Sepsis with shock, slowly improving. 2. Hypokalemia. 3. Hypomagnesemia. 4. Healthcare-acquired pneumonia. 5. Ventilator-dependent respiratory failure. 6. Anemia, multifactorial. PLAN: 1. Taper pressors. 2. Maintenance hydration. 3. Antimicrobials. 4. Ventilator support. 5. Potassium and magnesium repletion. 6. Transfuse for hemoglobin less than 7 grams. Jorge A Morales M.D. DR: WOLF JOB#: [id number] CC:
--- NOTE | 2018-11-24 23:30 | NUR ---
NURSE NOTES: Patient in bed resting no s/s of acute distress noted. HOB elevated. SCD's on. GT intact running Vital AF 1.2 at 50cc/hr. Temp 98.0 axillary. Repositioned. Will continue plan of care
[2018-11-25] VITALS (24 sets, daily range): BP systolic 87–145; BP diastolic 53–85
--- NOTE | 2018-11-25 00:30 | NUR ---
NURSE NOTES: Seen and examined by Dr. Flores no new order.
[2018-11-25] MEDS: Lacri-Lube Opth Oint 3.5gm BOTH EYES SCH ×5 (00:53→23:45)
[2018-11-25] MEDS: NovoLOG Insulin Flexpen SUBQ SCH ×5 (00:54→23:46)
--- NOTE | 2018-11-25 02:30 | NUR ---
NURSE NOTES: Repositioned. HOB elevated/ Suctioned and oral care provided. No s/s of acute distress. No s/s of hypo/hyperglycemia. Will continue plan of care.
--- NOTE | 2018-11-25 04:30 | NUR ---
NURSE NOTES: Bed bath given tolerated well.Repositioned. HOB elevated/ Suctioned and oral care provided. No s/s of acute distress. No s/s of hypo/hyperglycemia. Will continue plan of care.
[2018-11-25] MEDS: D5NS 1,000 ML IV SCH ×2 (05:07→23:45)
[2018-11-25] MEDS: Piperacillin/Tazobactam 3.375 GM in D5W 110 ML IVPB SCH ×3 (05:07→22:31)
--- NOTE | 2018-11-25 05:30 | Progress Note ---
DATE: 11/24/2018 SUBJECTIVE: The patient is afebrile, hypotensive with near tachycardia and tachypnea. PHYSICAL EXAMINATION: VITAL SIGNS: Blood pressure is 92/51, his pulse is 95, respirations are 29, and temperature is 98. HEENT: Eyes were normal. ENT, mucous membranes were moist and intact. NECK: Supple with no JVD and without lymph nodes. Tracheostomy site is clean. LUNGS: Clear without rhonchi, rales, or wheezing. Secretions are small, thin, and cunningham. HEART: Normal sounds with regular beats. No S3, S4, or pericardial rub. ABDOMEN: Soft and nontender with normal bowel sounds. Gastrostomy site is clean. EXTREMITIES: Warm without cyanosis, clubbing, or edema. LABORATORY AND DIAGNOSTIC DATA: Hemoglobin is 8.8, hematocrit 26.3 with MCV of 93, WBC of 9.6, and platelets is 50,000. His BUN and creatinine is 5 and 0.7 respectively. His sodium is 140, potassium 3.2, chloride 103, and CO2 is 30. His calcium is 8.9. His magnesium is 1.6. SGOT and SGPT are normal, his alkaline phosphatase is 199. ProBNP is 4168. Albumin is 1.6 and total protein is 6.5. His magnesium is 1.6. Both the potassium and magnesium will be corrected by the process architect. His ProBNP was this morning and a large dose of Lasix. Chest x-ray revealed consolidation bilaterally and left pleural effusion. Blood culture from 11/23/2018 shows no growth up to 4 days. The patient has anoxic encephalopathy therapy. Matt Flores M.D. DR: JAZZY JOB#: [id number] CC:
--- NOTE | 2018-11-25 06:29 | NUR ---
NURSE NOTES: Patient in bed sleeping comfortably. Repositioned. HOB elevated/ Suctioned and oral care provided. No s/s of acute distress. No s/s of hypo/hyperglycemia. Will continue plan of care.
--- NOTE | 2018-11-25 07:20 | NUR ---
RESPIRATORY NOTE: Patient received mechanically ventilated on PB840 with current ordered vent settings: AC 18-450ml-40%FiO2. Patient has trach size 6.0 Shiley cuffed that is secured with trach tie and guard. Breath sounds are rhonchi bilaterally. Large amount of thick/thin ramirez yellow secretions were suctioned without incident. Vent alarms are functional and audible, an ambu bag and extra trache kit available at the bedside and the vent is plugged into a red outlet. Will continue to monitor. Will continue to monitor.
--- NOTE | 2018-11-25 07:22 | NUR ---
NURSE NOTES: Received report from Eveline IVORY. Patient in bed, nonverbal, responds to pain, does not open eyes. Patient trach to vent, Shiley 6.0, to vent, settings: AC18, TV 450, FIO2 40%, O2 sat 99%. No acute distress noted. G-tube running vital A.F @ 50ml/hr. Goal 50ml/hr. no residual.1x bm, loose brown. Castrejon cath intact and patent, draining yellow urine below bladder, minimal output, . Patient skin- see assessment. Right IJ TLC intact, running d5ns @50ml/hr. VSS. contact precautions in place. bed locked in low position. will continue to monitor pt.
--- NOTE | 2018-11-25 07:26 | NUR ---
HAND-OFF: Report given to KOLE Coleman.
[2018-11-25] MEDS: Pantoprazole Inj IV SCH (08:38)
--- NOTE | 2018-11-25 10:00 | NUR ---
NURSE NOTES: MD FRANCISCO HERE. WILL PLACE ORDER FOR K AND MG LEVELS.
--- NOTE | 2018-11-25 10:10 | Pulmonolgy Critical Care Note ---
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 with: nurses, consultants Critical Care - Objective Last 24 Hour Vital Signs Date Time Temp Pulse Resp B/P (MAP) Pulse Ox O2 Delivery O2 Flow Rate FiO2 11/25/18 08:57 100 26 40 11/25/18 08:00 40 11/25/18 08:00 99.0 98 25 88/56 (67) 95 11/25/18 08:00 Mechanical Ventilator 11/25/18 07:20 105 22 40 11/25/18 07:00 98 26 90/55 (67) 92 11/25/18 06:00 95 24 87/53 (64) 98 11/25/18 05:18 90 22 40 11/25/18 05:00 92 24 93/58 (70) 94 11/25/18 04:00 40 11/25/18 04:00 98.0 88 25 98/59 (72) 93 11/25/18 04:00 Mechanical Ventilator 11/25/18 04:00 96 11/25/18 03:05 87 30 40 11/25/18 03:00 88 29 94/55 (68) 98 11/25/18 02:00 91 23 99/59 (72) 95 11/25/18 01:10 93 24 40 11/25/18 01:00 91 27 99/60 (73) 96 11/25/18 00:00 Mechanical Ventilator 11/25/18 00:00 98.4 94 25 100/58 (72) 95 11/25/18 00:00 95 11/24/18 23:08 96 27 Mechanical Ventilator 40 11/24/18 23:07 95 27 40 11/24/18 23:00 94 25 95/57 (70) 95 11/24/18 22:00 95 26 99/49 (66) 96 11/24/18 21:00 98 25 40 11/24/18 21:00 100 29 102/59 (73) 94 11/24/18 20:00 98.0 95 29 92/51 (65) 94 11/24/18 20:00 Mechanical Ventilator 11/24/18 20:00 40 11/24/18 19:14 96 27 40 11/24/18 19:00 95 30 91/48 (62) 96 11/24/18 18:00 99 30 102/57 (72) 95 11/24/18 17:00 101 27 101/58 (72) 97 11/24/18 16:58 104 27 40 11/24/18 16:00 50 11/24/18 16:00 Mechanical Ventilator 11/24/18 16:00 97 11/24/18 16:00 98.1 99 27 104/55 (71) 97 11/24/18 15:04 50 11/24/18 15:00 100 30 101/61 (74) 97 11/24/18 14:34 97 25 60 11/24/18 14:00 96 33 100/57 (71) 99 11/24/18 13:01 91 28 60 11/24/18 13:00 93 26 91/53 (66) 99 11/24/18 12:00 98.4 103 31 93/54 (67) 99 11/24/18 12:00 60 11/24/18 12:00 Mechanical Ventilator 11/24/18 12:00 104 11/24/18 11:08 104 28 60 11/24/18 11:00 100 23 98/53 (68) 99 Status: obtunded Condition: critical HEENT: atraumatic Neck: full ROM Heart: HR/BP stable Abdomen: soft Decubiti: location Micro: Microbiology Date/Time Source Procedure Growth Status 11/25/18 04:30 Stool Clostridium difficile Toxin Assay - Final Complete Accucheck: 170 Critical Care - Subjective ROS Limited/Unobtainable: Yes EKG Rhythm: Sinus Bradycardia FI02: 40 Vent Support Breath Rate: 18 Vent Support Mode: AC Vent Tidal Volume: 450 Sputum Amount: Moderate PEEP: 0.0 PIP: 33 Tube Feeding Amount: 50 I&O: Intake and Output 11/24/18 11/25/18 18:59 06:59 Intake Total 1840.8 ml 1654.4 ml Output Total 1170 ml 650 ml Balance 670.8 ml 1004.4 ml Intake Free Water 100 ml 200 ml IV Total 1190.8 ml 854.4 ml Tube Feeding 550 ml 600 ml Output Urine Total 1170 ml 650 ml # Bowel Movements 2 3 Law Carter MD Nov 25, 2018 10:10
--- NOTE | 2018-11-25 11:44 | NUR ---
NURSE NOTES: Pt resting in bed. no s/s of acute distress noted. HOB elevated. SCD's on. GT intact running @ Vital AF 1.2 at 50cc/hr. Afebrile. Repositioned. Will continue to implement care plan.
--- NOTE | 2018-11-25 11:55 | Consultation ---
History of Present Illness General Date patient seen: Nov 25, 2018 Chief Complaint: Dyspnea/Respdistress Present Illness HPI 53 y/o M with hx of CVA, Anoxic encephalopathy, dysphagia s/p GT, COPD, Dm2, HTN , GERD, HLD, chronic respiratory failure trach dependant SNF resident presents to ED on 11/19 with hypoxia and respiratory distress. Was found to be hypotensive upon admission and started on pressors and admitted to ICU. Allergies: Coded Allergies: No Known Allergies (Unverified , 10/11/18) Medication History Scheduled Aspirin* (Aspir 81*), 81 MG GT DAILY, (Reported) Atorvastatin (Lipitor), 80 MG ORAL DAILY, (Reported) Atorvastatin Calcium* (Atorvastatin Calcium*), 80 MG GT BEDTIME, (Reported) Heparin Sod (Porcine) (Heparin Sodium*), 5,000 UNITS SUBQ EVERY 12 HOURS, ( Reported) Pantoprazole* (Pantoprazole*), 40 MG GT DAILY, (Reported) Polyethylene Glycol 3350* (Miralax*), 17 GM ORAL DAILY, (Reported) Vitamin D (Vitamin D3), 5,000 UNITS GT DAILY, (Reported) Patient History Healthcare decision maker N Resuscitation status Advanced Directive on File unk Patient History Narrative Pmhx: as above Shx: No record of prior alcohol or substance abuse. There is a heavy smoking history in the past, per daughter. Fhx non contributory Review of Systems All Other Systems: negative except mentioned in HPI Physical Exam Physical Exam Narrative GENERAL: Presently on ventilator support by tracheostomy. LUNGS: Bilateral coarse breath sounds with rhonchi. HEART: Regular rhythm, rapid rate. Normal S1, S2. ABDOMEN: Soft. G-tube intact. EXTREMITIES: There is trace edema. Last 24 Hour Vital Signs Date Time Temp Pulse Resp B/P (MAP) Pulse Ox O2 Delivery O2 Flow Rate FiO2 11/25/18 11:10 104 20 40 11/25/18 11:00 104 25 104/60 (75) 96 11/25/18 10:00 102 28 108/59 (75) 94 11/25/18 09:00 104 27 123/65 (84) 100 11/25/18 08:57 100 26 40 11/25/18 08:00 40 11/25/18 08:00 99.0 98 25 88/56 (67) 95 11/25/18 08:00 99 11/25/18 08:00 Mechanical Ventilator 11/25/18 07:20 105 22 40 11/25/18 07:00 98 26 90/55 (67) 92 11/25/18 06:00 95 24 87/53 (64) 98 11/25/18 05:18 90 22 40 11/25/18 05:00 92 24 93/58 (70) 94 11/25/18 04:00 40 11/25/18 04:00 98.0 88 25 98/59 (72) 93 11/25/18 04:00 Mechanical Ventilator 11/25/18 04:00 96 11/25/18 03:05 87 30 40 11/25/18 03:00 88 29 94/55 (68) 98 11/25/18 02:00 91 23 99/59 (72) 95 11/25/18 01:10 93 24 40 11/25/18 01:00 91 27 99/60 (73) 96 11/25/18 00:00 Mechanical Ventilator 11/25/18 00:00 98.4 94 25 100/58 (72) 95 11/25/18 00:00 95 11/24/18 23:08 96 27 Mechanical Ventilator 40 11/24/18 23:07 95 27 40 11/24/18 23:00 94 25 95/57 (70) 95 11/24/18 22:00 95 26 99/49 (66) 96 11/24/18 21:00 98 25 40 11/24/18 21:00 100 29 102/59 (73) 94 11/24/18 20:00 98.0 95 29 92/51 (65) 94 11/24/18 20:00 Mechanical Ventilator 11/24/18 20:00 40 11/24/18 19:14 96 27 40 11/24/18 19:00 95 30 91/48 (62) 96 11/24/18 18:00 99 30 102/57 (72) 95 11/24/18 17:00 101 27 101/58 (72) 97 11/24/18 16:58 104 27 40 11/24/18 16:00 50 11/24/18 16:00 Mechanical Ventilator 11/24/18 16:00 97 11/24/18 16:00 98.1 99 27 104/55 (71) 97 11/24/18 15:04 50 11/24/18 15:00 100 30 101/61 (74) 97 11/24/18 14:34 97 25 60 11/24/18 14:00 96 33 100/57 (71) 99 11/24/18 13:01 91 28 60 11/24/18 13:00 93 26 91/53 (66) 99 11/24/18 12:00 98.4 103 31 93/54 (67) 99 11/24/18 12:00 60 11/24/18 12:00 Mechanical Ventilator 11/24/18 12:00 104 Intake and Output 11/24/18 11/25/18 18:59 06:59 Intake Total 1840.8 ml 1654.4 ml Output Total 1170 ml 650 ml Balance 670.8 ml 1004.4 ml Intake Free Water 100 ml 200 ml IV Total 1190.8 ml 854.4 ml Tube Feeding 550 ml 600 ml Output Urine Total 1170 ml 650 ml # Bowel Movements 2 3 Microbiology Date/Time Source Procedure Growth Status 11/25/18 04:30 Stool Clostridium difficile Toxin Assay - Final Complete Height (Feet): 5 Height (Inches): 8.00 Weight (Pounds): 140 Medications Current Medications Medications (Trade) Dose Ordered Sig/Last Route PRN Reason Start Time Stop Time Status Last Admin Dose Admin Acetaminophen (Tylenol) 650 mg Q4H PRN GT Mild Pain/Temp > 100.5 11/20/18 21:30 12/20/18 21:29 11/20/18 21:43 Amikacin Protocol (Amikacin pharmacy to dose) 1 ea DAILY PRN MISC Per rx protocol 11/20/18 09:00 12/20/18 08:59 Amikacin Sulfate 950 mg/Sodium Chloride 113.8 ml @ 220 mls/hr Q24H IV 11/21/18 12:30 11/28/18 12:29 11/24/18 11:32 Artificial Tears (Lacri-Lube) 1 applic Q6HR BOTH EYES 11/20/18 12:00 12/20/18 11:59 11/25/18 11:07 Chlorhexidine Gluconate (Petra-Hex 2%) 1 applic DAILY@2000 TOPIC 11/21/18 20:00 12/21/18 19:59 11/24/18 19:51 Dextrose (Dextrose 50%) 25 ml Q30M PRN IV Hypoglycemia 11/20/18 09:00 12/20/18 08:59 11/21/18 06:23 Dextrose/Sodium Chloride 1,000 ml @ 50 mls/hr Q20H IV 11/24/18 11:00 12/24/18 10:59 11/25/18 05:07 Insulin Aspart (NovoLOG) Q6H SUBQ 11/21/18 06:00 12/21/18 05:59 11/25/18 05:17 Magnesium Sulfate 100 ml @ 100 mls/hr Q1H IVPB 11/25/18 15:00 11/25/18 16:59 Pantoprazole (Protonix) 40 mg DAILY IV 11/20/18 10:30 12/20/18 10:29 11/25/18 08:38 Piperacillin Sod/ Tazobactam Sod 3.375 gm/Dextrose 110 ml @ 27.5 mls/hr Q8HR IVPB 11/20/18 14:00 11/27/18 13:59 11/25/18 05:07 Polyethylene Glycol (Miralax) 17 gm DAILY PRN ORAL Constipation 11/20/18 09:15 12/20/18 09:14 Potassium Chloride 100 ml @ 50 mls/hr Q2H IVPB 11/25/18 11:00 11/25/18 14:59 11/25/18 11:07 Assessment/Plan Assessment/Plan Abx: IV Zosyn 11/19- IV Amikacin 11/20- Levaquin x1 11/19 Assessment: Septic shock, SP- 2ry to PNA -11/24 CXR: Extensive consolidation bilaterally unchanged. There is a left pleural effusion noted. 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 -11/19 Bcx neg Low grade fever x1 Leukocytosis, SP Lactic acidosis, SP Acute on chronic respiratory failure Mild LFTs elevation, SP CVA, Anoxic encephalopathy dysphagia s/p GT COPD Dm2 HTN GERD HLD chronic respiratory failure trach dependant SNF resident Plan: -Continue empiric Zosyn 03/08 and IV Amikacin 6/7-10 for PNA -f.u cx -Monitor CBC/CMP, temperatures -sp cx, legionella ag urine, influenza sc -ICU/PEG/trach care -aspiration precautions -wound care per hospital protocol Thank you for this consultation. Will continue to follow along with you. Jacki Trent M.D. Nov 25, 2018 11:55
[2018-11-25] MEDS: Acetaminophen 650mg/20.3ml GT PRN ×2 (12:16→16:46)
[2018-11-25] MEDS: Amikacin 950 MG in NS 110 ML IV SCH (13:28)
--- NOTE | 2018-11-25 13:44 | NUR ---
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 SEPSIS VS: BP 108/59, P 110, T 99.0, RR 28, SpO2 94 on VENT AC 18, TV 450, PEEP 0.0, FiO2 40 IS:POTASSIUM CHLORIDE 100ml IVPB D5/NS x1L IV AMIKACIN SULFATE 113.8 ml IV NOVOLOG SUBQ PIPERACILLIN 110ml IVPB PROTONIX 40mg IV ICU STATUS
--- NOTE | 2018-11-25 14:48 | NUR ---
NURSE NOTES: R.T giving breathing treatment and suction. oral care provided. pt repositioned. HOB>30. temp 99axuallary.
--- NOTE | 2018-11-25 15:36 | NUR ---
NURSE NOTES: Received call from [facility] informing that pt bed open. will transfer to [address] [address]. 4-tele 9D. admitting MD Dr. Sibley. number to call and give report [phone]. has made several attempts to reach Kelle jose a case manger. unable to see if transportation has been arranged.
--- NOTE | 2018-11-25 15:38 | NUR ---
NURSE NOTES: called [facility]ne case management will call and arrange transportation when authorization number available. C.N aware.
--- NOTE | 2018-11-25 16:50 | NUR ---
NURSE NOTES: called to give report at [facility], was transferred to pt care center. Lina informed me, nurses can not get report for this pt until after 1900 today. clinic priority but pt will be admitted to same room. Christian earl.
--- NOTE | 2018-11-25 17:00 | NUR ---
NURSE NOTES: pt cleaned, repositioned. ax temp 100.5 [id number] GT given and cooling measures in place. hob>30 heels floating. no residual. GT patent, no residuals.
--- NOTE | 2018-11-25 17:09 | General Progress Note ---
Assessment/Plan Assessment/Plan Assessment and Recs: # Thrombocytopenia - potential causes multifactorial, at this time, likely due to infection, Peripheral smear ordered to evaluate for blasts /schistocytes does show some mild bandemia and immature cells --> flow cytometry reviewed and is negative for abnormal clonal population --> Hep panel and HIV negative from prior admission --> US abd to evaluate for cirrhosis and hsm ordered is negative for ascites --> abx and other meds have been reviewed --> ok for ppx if plt >50k w/ either heparin or lovenox --> Transfuse if Plt < 20k and fever, or if Plt < 10k without fever # Anemia of chronic disease -- panel has been ordered and reviewed, ferritin is >1000, tibc is low --> maintain hgb above 7 --> panel reviewed, no hemolysis, peripheral smear is wnl --> monitor for bleeding --> gi recs appreciated --> would hold off any iron at this time --> cea is 7.8 --> hgb trend 8.3-->8.8 # Coagulopathy - potentailly related to decreased po intake --> consider vit K prior to any proecedure --> ffp as well if patient bleeds # Gastrostomy tube dependent --> started tube feeds # Rectal tube in place from before --> wound care # Clostridium difficile diarrhea --> s.p prior rx # Dehydration # Iron deficiency # Tracheostomy ++/vent --> per pulm recs # Encephalopathy The timing of this note does not necessarily reflect the time of the patient was seen. Greatly appreciate consultation! Subjective Allergies: Coded Allergies: No Known Allergies (Unverified , 10/11/18) Subjective 11/22: plts are lower today as is cbc/hgb, trending closely, low threshold to transfusion 11/23: k is low, no fevers, no chills, cbc reviewed, plt remains low 11/24: no events, cbc reviewed, trach to vent, repositioned today 11/25: on abx broad spectrum, seen by pulm, repositioned during exam Objective Last 24 Hour Vital Signs Date Time Temp Pulse Resp B/P (MAP) Pulse Ox O2 Delivery O2 Flow Rate FiO2 11/25/18 16:56 115 33 40 11/25/18 16:00 100.5 118 27 121/65 (83) 96 11/25/18 16:00 40 11/25/18 16:00 121 11/25/18 16:00 Mechanical Ventilator 11/25/18 15:06 119 32 40 11/25/18 15:00 117 30 116/70 (85) 97 11/25/18 14:00 113 27 117/72 (87) 97 11/25/18 13:00 110 28 115/58 (77) 97 11/25/18 12:58 110 27 40 11/25/18 12:00 Mechanical Ventilator 11/25/18 12:00 107 11/25/18 12:00 99.0 107 28 108/64 (79) 97 11/25/18 12:00 40 11/25/18 11:10 104 20 40 11/25/18 11:00 104 25 104/60 (75) 96 11/25/18 10:00 102 28 108/59 (75) 94 11/25/18 09:00 104 27 123/65 (84) 100 11/25/18 08:57 100 26 40 11/25/18 08:00 40 11/25/18 08:00 99.0 98 25 88/56 (67) 95 11/25/18 08:00 99 11/25/18 08:00 Mechanical Ventilator 11/25/18 07:20 105 22 40 11/25/18 07:00 98 26 90/55 (67) 92 11/25/18 06:00 95 24 87/53 (64) 98 11/25/18 05:18 90 22 40 11/25/18 05:00 92 24 93/58 (70) 94 11/25/18 04:00 40 11/25/18 04:00 98.0 88 25 98/59 (72) 93 11/25/18 04:00 Mechanical Ventilator 11/25/18 04:00 96 11/25/18 03:05 87 30 40 11/25/18 03:00 88 29 94/55 (68) 98 11/25/18 02:00 91 23 99/59 (72) 95 11/25/18 01:10 93 24 40 11/25/18 01:00 91 27 99/60 (73) 96 11/25/18 00:00 Mechanical Ventilator 11/25/18 00:00 98.4 94 25 100/58 (72) 95 11/25/18 00:00 95 11/24/18 23:08 96 27 Mechanical Ventilator 40 11/24/18 23:07 95 27 40 11/24/18 23:00 94 25 95/57 (70) 95 11/24/18 22:00 95 26 99/49 (66) 96 11/24/18 21:00 98 25 40 11/24/18 21:00 100 29 102/59 (73) 94 11/24/18 20:00 98.0 95 29 92/51 (65) 94 11/24/18 20:00 Mechanical Ventilator 11/24/18 20:00 40 11/24/18 19:14 96 27 40 11/24/18 19:00 95 30 91/48 (62) 96 11/24/18 18:00 99 30 102/57 (72) 95 Intake and Output 11/24/18 11/25/18 19:00 07:00 Intake Total 1790.8 ml 1654.4 ml Output Total 940 ml 630 ml Balance 850.8 ml 1024.4 ml Intake Free Water 100 ml 200 ml IV Total 1140.8 ml 854.4 ml Tube Feeding 550 ml 600 ml Output Urine Total 940 ml 630 ml # Bowel Movements 3 2 Height (Feet): 5 Height (Inches): 8.00 Weight (Pounds): 140 Objective Vitals: have been reviewed Gen: no apparent distress Head: normocephalic EENT: PERRL/EOMI Neck: supple, tracheotomy +++ Respiratory: normal breath sounds, no respiratory distress ++ trach Cardiovascular: normal rate Gastrointestinal: normal inspection, non tender, soft, normal bs, gt+++ Rectal: deferred Genitourinary: deferred Musculoskeletal: normal inspection, back normal Skin: normal color, no rash, warm/dry Lymphatic: normal inspection, no adenopathy Antonio Higgins MD Nov 25, 2018 17:09
--- NOTE | 2018-11-25 17:09 | NUR ---
Social Service Note Patient accepted to [facility] [address] [facility] [address], 4 Tele 9D, . Ambulance arranged with [facility] [phone] option 2. Reservation number [phone]. ETA between 2 to 3 hours. SW requested for provider to call nursing unit when in route to the hospital. CHRISTA notified patient's dgt Blanche Vargas [phone] of transfer. Dgt agreed with transfer. CHRISTA notified primary nurse.
--- NOTE | 2018-11-25 17:15 | NUR ---
NURSE NOTES: Kerry galloway called with ETA 1800, was updated on need for pt to go to different unit. laverne told transportation to call before arriving. A call was made, ticket required clarification.
--- NOTE | 2018-11-25 18:00 | NUR ---
NURSE NOTES: called [facility] to see if eta was still active, they are unable to transport pt due to need for acls pt is trach to vent. they transferred me to call the car who transferred me to their ER services, pending availability. Christian earl.
--- NOTE | 2018-11-25 19:10 | NUR ---
NURSE NOTES: Called call the car reservation number [phone]. ETA not determined. Called [facility] to give report, d/c not possible due pt need to be on PACU or stepdown unit. C.N aware.
--- NOTE | 2018-11-25 19:30 | NUR ---
HAND-OFF: Report given to janett. pt in no acute distress.
--- NOTE | 2018-11-25 19:35 | NUR ---
NURSE NOTES: Received report from KOLE Coleman. Patient in bed, nonverbal, responds to pain, does not open eyes. Patient trach to vent, Shiley 6.0, to vent, settings: AC18, TV 450, FIO2 40%, no peep O2 sat 97%. No acute distress noted. ST noted on the monitor HR 122. G-tube running vital A.F @ 50ml/hr no residual. Castrejon cath intact and patent, draining clear yellow urine. Patient noted with sacral dressing. On P200 for wound management. Right IJ TLC intact, running D5NS @50ml/hr. contact precautions maintained and observed. SCD on.bed locked in low position. will continue plan of care.
[2018-11-25] MEDS: Dyna-Hex 2% Top Sol 2oz TOPIC SCH (20:58)
--- NOTE | 2018-11-25 21:30 | NUR ---
NURSE NOTES: Patient in bed no moaning no facial grimaces. Repositioned, oral care provided. No fever Temp 98.7 Axillary. Comfort measure provided. Will continue to monitor patient.
--- NOTE | 2018-11-25 23:30 | NUR ---
NURSE NOTES: Patient in bed sleeping comfortably, no s/s of acute distress noted. SR on the youth nutritional monitor HR 96. Repositioned for comfort. Castrejon draining 500-700cc per hour after Lasix. Contact isolation maintained and observed. Will continue plan of care.
[2018-11-26] VITALS (12 sets, daily range): BP systolic 102–128; BP diastolic 64–85
--- NOTE | 2018-11-26 00:30 | NUR ---
NURSE NOTES: Seen and examined by Dr. Flores no new order.
--- NOTE | 2018-11-26 00:45 | Progress Note ---
CARDIOLOGY PROGRESS NOTE DATE: 11/25/2018 SUBJECTIVE: The patient remains on ventilator via tracheostomy. OBJECTIVE: VITAL SIGNS: Blood pressure 104/60, pulse 104, and respirations 25. LUNGS: Coarse breath sounds with rhonchi. HEART: Regular rhythm and rate. Normal S1, S2. ABDOMEN: Soft. EXTREMITIES: No edema. LABORATORY DATA: No new labs today. IMPRESSION: 1. Sepsis with shock. 2. Hypomagnesemia. 3. Acute on chronic diastolic congestive heart failure. 4. Hypokalemia. 5. Ventilator-dependent respiratory failure. 6. Sinus tachycardia. 7. Acute myocardial ischemia. PLAN: 1. Antimicrobials. 2. Avoid resumption of pressors. 3. Replace potassium and magnesium as needed. 4. Diuresis with caution. Jorge A Morales M.D. DR: JONEL JOB#: [id number] CC:
--- NOTE | 2018-11-26 02:41 | NUR ---
NURSE NOTES: Bed bath given tolerated well. With x1 episode of large loose brownish yellow stool. Kept clean and dry. Oral care done. SCD's on. No s/s of hypo/hyperglycemia. Negative for c-diff. Will continue plan of care.
--- NOTE | 2018-11-26 04:41 | NUR ---
NURSE NOTES: Repositioned. Comfort measure provided. No s/s of hypo/hyperglycemia. Will continue to monitor patient.
[2018-11-26] MEDS: Piperacillin/Tazobactam 3.375 GM in D5W 110 ML IVPB SCH ×3 (05:57→21:45)
[2018-11-26] MEDS: Lacri-Lube Opth Oint 3.5gm BOTH EYES SCH ×4 (05:57→23:48)
[2018-11-26] MEDS: NovoLOG Insulin Flexpen SUBQ SCH ×4 (06:08→23:49)
[2018-11-26] MEDS: D5NS 1,000 ML IV SCH (06:30)
--- NOTE | 2018-11-26 06:30 | NUR ---
TRANSFER TO FLOOR: Patient transferred to SDU 234, per . Report given to Mary SHARIF. Belongings and medications given to Mary SHARIF Family and or S/O informed of transfer.
--- NOTE | 2018-11-26 06:31 | NUR ---
NURSE NOTES: Received a transfer patient from ICU from [facility] Perez.Patient non-verbal,stable,tolerated portable oxygen,no respiratory distress noted,trach Shiley 6 AC 18 TV 450 FiO2 40% no PEEP,GT running with VitalAF@50ml/hr no flush order,f/cath for retention,pt on P 200 mattress d/t sacral wound,IV asymptomatic,intact on R IJ triple lumen running w/D 5 NS @ 50ml/hr,dressing changed 11/23/18,belongings list signed for no belongings,family informed,bed secured,call light within a reach,will continue to monitor.
--- NOTE | 2018-11-26 07:00 | NUR ---
Received Patient on AVCV RR 18, VT 450, FIO2 40%, PEEP +0. Breath sounds reveal bilateral diminished rhonchi. Suction thick white clear secretions as needed. Patient obtundent, lying in bed. Patient vent dependent with a Shiley 6 tracheostomy, secured by trache ties. Ambu Bag at bedside. Alarms on and audible. Will continue to monitor patient throughout the day.
[2018-11-26 07:07] LABS: HEMOGLOBIN 8.7 G/DL (14.2-18.0); MEAN CORPUSCULAR VOLUME 94 FL (80-99); PLATELET COUNT 96 K/UL (150-450); RED BLOOD COUNT 2.78 M/UL (4.70-6.10); RED CELL DISTRIBUTION WIDTH 17.8 % (11.6-14.8); WHITE BLOOD COUNT 10.6 K/UL (4.8-10.8)
[2018-11-26 07:18] LABS: ALANINE AMINOTRANSFERASE 26 U/L (12-78); ALBUMIN 1.5 G/DL (3.4-5.0); ALBUMIN/GLOBULIN RATIO 0.3 (1.0-2.7); ALKALINE PHOSPHATASE 245 U/L (46-116); ANION GAP 7 mmol/L (5-15); ASPARTATE AMINO TRANSFERASE 22 U/L (15-37); BILIRUBIN,TOTAL 0.4 MG/DL (0.2-1.0); BLOOD UREA NITROGEN 2 mg/dL (7-18); CALCIUM 8.9 MG/DL (8.5-10.1); CARBON DIOXIDE 31 MMOL/L (21-32); CHLORIDE 105 MMOL/L (98-107); CREATININE 0.7 MG/DL (0.55-1.30); PHOSPHORUS 3.7 MG/DL (2.5-4.9); POTASSIUM 3.4 MMOL/L (3.5-5.1); SODIUM 143 MMOL/L (136-145)
--- NOTE | 2018-11-26 07:26 | NUR ---
HAND-OFF: Report given to KOLE Herzog.Patient stable.
--- NOTE | 2018-11-26 08:00 | NUR ---
NURSE NOTES: received opt in the bed, nonverbal, vent dependent, vital signs stable, no co pain, no SOB, tolerate GT feeding well, skin warm and dry to touch, dressing on sacral area dry and intact, TLC on RT IJ, dressing dry and intact, just one port working, Castrejon catheter with yellow urine, bed in low position, HOB elevated.
--- NOTE | 2018-11-26 08:02 | Infectious Diseases Prog Note ---
Assessment/Plan Assessment/Plan Abx: IV Zosyn 11/19- IV Amikacin 11/20- Levaquin x1 11/19 Assessment: Septic shock, SP- 2ry to PNA -11/24 CXR: Extensive consolidation bilaterally unchanged. There is a left pleural effusion noted. 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 -11/19 Bcx neg Low grade fever x1 Leukocytosis, SP Lactic acidosis, SP Acute on chronic respiratory failure Mild LFTs elevation, SP CVA, Anoxic encephalopathy dysphagia s/p GT COPD Dm2 HTN GERD HLD chronic respiratory failure trach dependant SNF resident Plan: -Continue empiric Zosyn 04/08 and IV Amikacin 03/08 for PNA -f.u cx -Monitor CBC/CMP, temperatures -sp cx, legionella ag urine, influenza sc -ICU/PEG/trach care -aspiration precautions -wound care per hospital protocol Will continue to follow along with you. Subjective Allergies: Coded Allergies: No Known Allergies (Unverified , 10/11/18) Subjective Patient afebrile On Vent satting swell on 40% O2 No Leukocytosis Objective Vital Signs Last 24 Hour Vital Signs Date Time Temp Pulse Resp B/P (MAP) Pulse Ox O2 Delivery O2 Flow Rate FiO2 11/26/18 07:19 84 21 40 11/26/18 06:30 97.7 88 126/71 (89) 11/26/18 06:00 86 23 121/76 (91) 97 11/26/18 05:17 86 21 40 40 11/26/18 05:00 84 23 120/69 (86) 98 11/26/18 04:00 98.0 85 24 114/77 (89) 98 11/26/18 04:00 40 11/26/18 04:00 Mechanical Ventilator 11/26/18 04:00 85 11/26/18 03:00 88 26 113/66 (82) 98 11/26/18 02:58 94 24 40 40 11/26/18 02:00 92 28 108/71 (83) 97 11/26/18 01:00 93 29 102/68 (79) 97 11/26/18 00:47 92 25 40 40 11/26/18 00:00 40 11/26/18 00:00 97.9 93 22 105/64 (78) 97 11/26/18 00:00 Mechanical Ventilator 11/25/18 23:41 95 11/25/18 23:08 97 29 40 40 11/25/18 23:00 96 23 111/67 (82) 98 11/25/18 22:00 100 24 98/56 (70) 98 11/25/18 21:00 106 23 101/61 (74) 97 11/25/18 20:54 107 23 40 40 11/25/18 20:00 98.7 117 24 131/68 (89) 95 11/25/18 20:00 40 11/25/18 20:00 Mechanical Ventilator 11/25/18 19:11 121 11/25/18 19:01 119 24 145/85 (105) 96 11/25/18 18:55 118 26 40 40 11/25/18 18:00 121 31 136/78 (97) 94 11/25/18 17:16 99.0 11/25/18 17:00 116 30 116/65 (82) 97 11/25/18 16:56 115 33 40 11/25/18 16:00 100.5 118 27 121/65 (83) 96 11/25/18 16:00 40 11/25/18 16:00 121 11/25/18 16:00 Mechanical Ventilator 11/25/18 15:06 119 32 40 11/25/18 15:00 117 30 116/70 (85) 97 11/25/18 14:00 113 27 117/72 (87) 97 11/25/18 13:00 110 28 115/58 (77) 97 11/25/18 12:58 110 27 40 11/25/18 12:00 Mechanical Ventilator 11/25/18 12:00 107 11/25/18 12:00 99.0 107 28 108/64 (79) 97 11/25/18 12:00 40 11/25/18 11:10 104 20 40 11/25/18 11:00 104 25 104/60 (75) 96 11/25/18 10:00 102 28 108/59 (75) 94 11/25/18 09:00 104 27 123/65 (84) 100 11/25/18 08:57 100 26 40 Height (Feet): 5 Height (Inches): 8.00 Weight (Pounds): 140 Objective On Vent satting swell on 40% O2 GENERAL: Trached on Vent satting swell on 40% O2 LUNGS: Bilateral coarse breath sounds . HEART: RRR Normal S1, S2. ABDOMEN: Soft. G-tube intact. EXTREMITIES: There is trace edema. Microbiology Date/Time Source Procedure Growth Status 11/25/18 04:30 Stool Clostridium difficile Toxin Assay - Final Complete Laboratory Tests Test 11/26/18 05:49 White Blood Count 10.6 K/UL (4.8-10.8) Red Blood Count 2.78 M/UL (4.70-6.10) L Hemoglobin 8.7 G/DL (14.2-18.0) L Hematocrit 26.0 % (42.0-52.0) L Mean Corpuscular Volume 94 FL (80-99) Mean Corpuscular Hemoglobin 31.1 PG (27.0-31.0) H Mean Corpuscular Hemoglobin Concent 33.3 G/DL (32.0-36.0) Red Cell Distribution Width 17.8 % (11.6-14.8) H Platelet Count 96 K/UL (150-450) L Mean Platelet Volume 8.4 FL (6.5-10.1) Neutrophils (%) (Auto) % (45.0-75.0) Lymphocytes (%) (Auto) % (20.0-45.0) Monocytes (%) (Auto) % (1.0-10.0) Eosinophils (%) (Auto) % (0.0-3.0) Basophils (%) (Auto) % (0.0-2.0) Neutrophils % (Manual) Pending Lymphocytes % (Manual) Pending Platelet Estimate Pending Platelet Morphology Pending Sodium Level 143 MMOL/L (136-145) Potassium Level 3.4 MMOL/L (3.5-5.1) L Chloride Level 105 MMOL/L (98-107) Carbon Dioxide Level 31 MMOL/L (21-32) Anion Gap 7 mmol/L (5-15) Blood Urea Nitrogen 2 mg/dL (7-18) L Creatinine 0.7 MG/DL (0.55-1.30) Estimat Glomerular Filtration Rate > 60 mL/min (>60) Glucose Level 142 MG/DL (74-106) H Calcium Level 8.9 MG/DL (8.5-10.1) Phosphorus Level 3.7 MG/DL (2.5-4.9) Magnesium Level 1.8 MG/DL (1.8-2.4) Total Bilirubin 0.4 MG/DL (0.2-1.0) Aspartate Amino Transf (AST/SGOT) 22 U/L (15-37) Alanine Aminotransferase (ALT/SGPT) 26 U/L (12-78) Alkaline Phosphatase 245 U/L (46-116) H Total Protein 6.1 G/DL (6.4-8.2) L Albumin 1.5 G/DL (3.4-5.0) L Globulin 4.6 g/dL Albumin/Globulin Ratio 0.3 (1.0-2.7) L Current Medications Medications (Trade) Dose Ordered Sig/Last Route PRN Reason Start Time Stop Time Status Last Admin Dose Admin Acetaminophen (Tylenol) 650 mg Q4H PRN GT Mild Pain/Temp > 100.5 11/26/18 09:30 12/20/18 21:29 Amikacin Protocol (Amikacin pharmacy to dose) 1 ea DAILY PRN MISC Per rx protocol 11/26/18 09:00 12/20/18 08:59 Amikacin Sulfate 950 mg/Sodium Chloride 113.8 ml @ 220 mls/hr Q24H IV 11/26/18 12:30 11/28/18 12:29 Artificial Tears (Lacri-Lube) 1 applic Q6HR BOTH EYES 11/26/18 12:00 12/20/18 11:59 Chlorhexidine Gluconate (Petra-Hex 2%) 1 applic DAILY@2000 TOPIC 11/26/18 20:00 12/21/18 19:59 Dextrose (Dextrose 50%) 25 ml Q30M PRN IV Hypoglycemia 11/26/18 06:30 12/20/18 08:59 Dextrose/Sodium Chloride 1,000 ml @ 50 mls/hr Q20H IV 11/26/18 06:30 12/24/18 10:59 11/26/18 06:30 Insulin Aspart (NovoLOG) Q6H SUBQ 11/26/18 12:00 12/21/18 05:59 Pantoprazole (Protonix) 40 mg DAILY IV 11/26/18 09:00 12/20/18 10:29 Piperacillin Sod/ Tazobactam Sod 3.375 gm/Dextrose 110 ml @ 27.5 mls/hr Q8HR IVPB 11/26/18 14:00 11/27/18 13:59 Polyethylene Glycol (Miralax) 17 gm DAILY PRN ORAL Constipation 11/26/18 09:00 12/20/18 09:14 Jorge A Aguiar MD Nov 26, 2018 08:02
[2018-11-26] MEDS: Pantoprazole Inj IV SCH (08:40)
[2018-11-26] MEDS ORDERED: Miralax 17gm pkt ORAL PRN (09:00)
[2018-11-26] MEDS ORDERED: Amikacin Rx to dose MISC PRN (09:00)
--- NOTE | 2018-11-26 12:16 | Pulmonolgy Critical Care Note ---
Critical Care - Asmt/Plan Problems: (1) Septic shock (2) Healthcare-associated pneumonia (3) Cerebral infarction (4) Feeding by G-tube (5) Acute metabolic encephalopathy (6) Anemia Respiratory: monitor respiratory rate, adjust FIO2 Cardiac: continue to monitor HR/BP Renal: F/U I&O Infectious Disease: check cultures Endocrine: monitor blood sugar, check HgA1C Hematologic: transfuse if hgb<8.5 Neurologic: PRN Ativan, PRN Morphine, keep patient comfortable Affect: PRN ativan Prophylaxis: Heparin Notes Reviewed: cardio Discussed with: nurses, consultants, caser inhealth promotion manager - Objective Last 24 Hour Vital Signs Date Time Temp Pulse Resp B/P (MAP) Pulse Ox O2 Delivery O2 Flow Rate FiO2 11/26/18 12:00 Mechanical Ventilator 11/26/18 12:00 40 11/26/18 11:25 91 24 40 11/26/18 08:36 88 30 40 11/26/18 08:00 87 11/26/18 08:00 97.4 89 26 114/77 (89) 97 11/26/18 08:00 Mechanical Ventilator 11/26/18 08:00 40 11/26/18 07:19 84 21 40 11/26/18 06:30 97.7 88 126/71 (89) 11/26/18 06:00 86 23 121/76 (91) 97 11/26/18 05:17 86 21 40 40 11/26/18 05:00 84 23 120/69 (86) 98 11/26/18 04:00 98.0 85 24 114/77 (89) 98 11/26/18 04:00 40 11/26/18 04:00 Mechanical Ventilator 11/26/18 04:00 85 11/26/18 03:00 88 26 113/66 (82) 98 11/26/18 02:58 94 24 40 40 11/26/18 02:00 92 28 108/71 (83) 97 11/26/18 01:00 93 29 102/68 (79) 97 11/26/18 00:47 92 25 40 40 11/26/18 00:00 40 11/26/18 00:00 97.9 93 22 105/64 (78) 97 11/26/18 00:00 Mechanical Ventilator 11/25/18 23:41 95 11/25/18 23:08 97 29 40 40 11/25/18 23:00 96 23 111/67 (82) 98 11/25/18 22:00 100 24 98/56 (70) 98 11/25/18 21:00 106 23 101/61 (74) 97 11/25/18 20:54 107 23 40 40 11/25/18 20:00 98.7 117 24 131/68 (89) 95 11/25/18 20:00 40 11/25/18 20:00 Mechanical Ventilator 11/25/18 19:11 121 11/25/18 19:01 119 24 145/85 (105) 96 11/25/18 18:55 118 26 40 40 11/25/18 18:00 121 31 136/78 (97) 94 11/25/18 17:16 99.0 11/25/18 17:00 116 30 116/65 (82) 97 11/25/18 16:56 115 33 40 11/25/18 16:00 100.5 118 27 121/65 (83) 96 11/25/18 16:00 40 11/25/18 16:00 121 11/25/18 16:00 Mechanical Ventilator 11/25/18 15:06 119 32 40 11/25/18 15:00 117 30 116/70 (85) 97 11/25/18 14:00 113 27 117/72 (87) 97 11/25/18 13:00 110 28 115/58 (77) 97 11/25/18 12:58 110 27 40 Status: awake Condition: critical HEENT: atraumatic, normocephalic Heart: regular Abdomen: non-tender, feeding tube Extremities: no C/C/E Decubiti: location Micro: Microbiology Date/Time Source Procedure Growth Status 11/25/18 04:30 Stool Clostridium difficile Toxin Assay - Final Complete Accucheck: 193 Critical Care - Subjective ROS Limited/Unobtainable: Yes IV Access: PICC EKG Rhythm: Sinus Rhythm FI02: 40 Vent Support Breath Rate: 18 Vent Support Mode: AC Vent Tidal Volume: 450 Sputum Amount: Moderate PEEP: 0.0 PIP: 35 Tube Feeding Amount: 50 I&O: Intake and Output 11/25/18 11/26/18 18:59 06:59 Intake Total 2082.5 ml 1636.66 ml Output Total 590 ml 4120 ml Balance 1492.5 ml -2483.34 ml Intake Free Water 120 ml 300 ml IV Total 1362.5 ml 736.66 ml Tube Feeding 600 ml 600 ml Output Urine Total 590 ml 4120 ml # Bowel Movements 5 2 Labs: Laboratory Tests Test 11/26/18 05:49 White Blood Count 10.6 K/UL (4.8-10.8) Red Blood Count 2.78 M/UL (4.70-6.10) L Hemoglobin 8.7 G/DL (14.2-18.0) L Hematocrit 26.0 % (42.0-52.0) L Mean Corpuscular Volume 94 FL (80-99) Mean Corpuscular Hemoglobin 31.1 PG (27.0-31.0) H Mean Corpuscular Hemoglobin Concent 33.3 G/DL (32.0-36.0) Red Cell Distribution Width 17.8 % (11.6-14.8) H Platelet Count 96 K/UL (150-450) L Mean Platelet Volume 8.4 FL (6.5-10.1) Neutrophils (%) (Auto) % (45.0-75.0) Lymphocytes (%) (Auto) % (20.0-45.0) Monocytes (%) (Auto) % (1.0-10.0) Eosinophils (%) (Auto) % (0.0-3.0) Basophils (%) (Auto) % (0.0-2.0) Differential Total Cells Counted 100 Neutrophils % (Manual) 74 % (45-75) Lymphocytes % (Manual) 21 % (20-45) Monocytes % (Manual) 5 % (1-10) Eosinophils % (Manual) 0 % (0-3) Basophils % (Manual) 0 % (0-2) Band Neutrophils 0 % (0-8) Platelet Estimate Decreased L Platelet Morphology Normal Hypochromasia 2+ Anisocytosis 1+ Sodium Level 143 MMOL/L (136-145) Potassium Level 3.4 MMOL/L (3.5-5.1) L Chloride Level 105 MMOL/L (98-107) Carbon Dioxide Level 31 MMOL/L (21-32) Anion Gap 7 mmol/L (5-15) Blood Urea Nitrogen 2 mg/dL (7-18) L Creatinine 0.7 MG/DL (0.55-1.30) Estimat Glomerular Filtration Rate > 60 mL/min (>60) Glucose Level 142 MG/DL (74-106) H Calcium Level 8.9 MG/DL (8.5-10.1) Phosphorus Level 3.7 MG/DL (2.5-4.9) Magnesium Level 1.8 MG/DL (1.8-2.4) Total Bilirubin 0.4 MG/DL (0.2-1.0) Aspartate Amino Transf (AST/SGOT) 22 U/L (15-37) Alanine Aminotransferase (ALT/SGPT) 26 U/L (12-78) Alkaline Phosphatase 245 U/L (46-116) H Total Protein 6.1 G/DL (6.4-8.2) L Albumin 1.5 G/DL (3.4-5.0) L Globulin 4.6 g/dL Albumin/Globulin Ratio 0.3 (1.0-2.7) L Law Carter MD Nov 26, 2018 12:16
[2018-11-26] MEDS: Amikacin 950 MG in NS 110 ML IV SCH (12:41)
--- NOTE | 2018-11-26 14:57 | NUR ---
NURSE NOTES: no any distress noted, tolerate feeding well, bed bath given, repositioned, continue monitoring.
--- NOTE | 2018-11-26 16:38 | NUR ---
CASE MANAGEMENT: REVIEW SI: SEPSIS . PNA . ENCEPHALOPATHY T 97.2 HR 92 RR 30 BP 128/83 SAT 97% MECH VENT FIO2 40 H/H 8.7/26.0 ALK PHOS 245 IS: K-DUR GT X1 LASIX IV X1 ZOSYN IV Q8HR AMIKACIN IV Q24HR KCl 20mEq IVF @50ML/HR STEP DOWN UNIT STATUS DCP: PATIENT IS FROM [facility]
[2018-11-26] MEDS ORDERED: D5NS 1000ml IV ONE (18:55)
[2018-11-26] MEDS ORDERED: Tubing IV Secondary IV ONE (18:55)
--- NOTE | 2018-11-26 19:00 | Progress Note ---
DATE: 11/25/2018 SUBJECTIVE: The patient is not awake, not alert, afebrile, and hemodynamically stable. He was febrile this morning. He is tachycardic all day. PHYSICAL EXAMINATION: VITAL SIGNS: Blood pressure 111/67, his pulse is 97, respirations of 29, and temperature is 97.9. HEENT: Eyes were normal. ENT, mucous membranes were moist and intact. NECK: Supple with no JVD without lymph nodes. Tracheostomy site is clean. LUNGS: Clear in upper lobes. There is bilateral rhonchi in both lower lobes, more on the right than on the left. HEART: Normal sounds with regular beats. There is tachycardia at rest. Sinus tachycardia on monitor. ABDOMEN: Soft and nontender with normal bowel sounds. Gastrostomy site is clean. EXTREMITIES: Warm without cyanosis, clubbing, or edema. LABORATORY AND DIAGNOSTIC DATA: Hemoglobin is 8.8, hematocrit 26.3 with MCV of 93, WBC of 9.6, and platelets of 50. His BUN and creatinine is 5 and 0.7 respectively. His sodium is 140, potassium 3.2, chloride 103, CO2 30. His magnesium is 1.5. His latest imaging study from yesterday show there is bilateral extensive consolidation and left pleural effusion and is stable. IMPRESSION: The patient in stable condition. negative. Stool for WBC was not done and unable to be ordered today. The patient was supposed to be transferred to today; however, it appear that they did not know whether the patient has a tracheostomy and therefore the consultation was declined. Repeat laboratory tests will be done in the a.m. Matt Flores M.D. DR: NANI JOB#: [id number] CC:
--- NOTE | 2018-11-26 19:18 | NUR ---
HAND-OFF: Report given to CONCHA SHARIF, CONDITION STABLE.
--- NOTE | 2018-11-26 19:42 | NUR ---
RESPIRATORY NOTE: Received pt on AC 18, 450VT, 40%, no PEEP. Pt trach-dependent w/ a cuffed, Shiley 6 tube. Pt flat effect, responds to pain/suctioning. B/S man. rhonchi, sxn moderate amounts of thick, ramirez-yellow secretions. Vent plugged into red outlet, ambubag & spare trach kit at bedside. Pt in no apparent distress at this time. Will continue plan of care.
--- NOTE | 2018-11-26 19:45 | NUR ---
NURSE NOTES: PATIENT OBTUNDED, ON TRACH TO VENT AC18/TV450/FIO2 40%, O2 SATURATION OVER 96% NOTED, ABDOMEN SOFT, NO BOWEL MOVEMENT STATUS, G TUBE INTACT AND PATENT, ONGOING VITAL AF AT 50ML/HR, NO RESIDUE NOTED, F/C INTACT AND PATENT, YELLOW URINE OUTED, TLC TO RIGHT IJ, INTACT AND PATENT, ONGOING D5 NS AT 50ML/HR, ON SCD'S TO BOTH LOWER LEGS, ON P200 BED, MADE LOWER BED POSITION AND PROVIDED CALL LIGHT WITHIN REACH, WILL CONTINUE TO MONITOR.
[2018-11-26] MEDS: Dyna-Hex 2% Top Sol 2oz TOPIC SCH (19:48)
--- NOTE | 2018-11-26 21:30 | Progress Note ---
DATE: 11/26/2018 CARDIOLOGY PROGRESS NOTE SUBJECTIVE: The patient is now off pressors. Continues on ventilator support. Monitored rhythm, sinus. OBJECTIVE: VITAL SIGNS: Blood pressure 114/77, pulse 89, and respirations 26. LUNGS: Bilateral breath sounds. Few rhonchi. HEART: Regular rhythm and rate. Normal S1, S2. ABDOMEN: Soft. EXTREMITIES: Trace edema. IMPRESSION: 1. Septic shock, recovering. 2. Healthcare-acquired pneumonia, improving. 3. Respiratory failure with tracheostomy. 4. Dysphagia with G-tube. 5. 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 6. Anemia. 7. Acute on chronic diastolic congestive heart failure. PLAN: 1. Respiratory therapy. 2. Antimicrobials. 3. Transfuse for hemoglobin less than 7. 4. Nutrition by feeding tube. 5. Diuresis based on clinical parameters. 6. Trend natriuretic peptide assay. Jorge A Morales M.D. DR: PAYAL JOB#: [id number] CC:
--- NOTE | 2018-11-26 22:36 | NUR ---
NURSE NOTES: Pt's daughter stayed at bedside at this time.
--- NOTE | 2018-11-26 23:05 | NUR ---
NURSE NOTES: NO PAIN OR DISTRESS NOTED AT THIS TIME.
[2018-11-27] VITALS: BP 114/73
--- NOTE | 2018-11-27 00:18 | NUR ---
NURSE NOTES: SEEN THE PATIENT BY DR. MEDLEY, MADE NEW ORDER AND CARRIED OUT.
--- NOTE | 2018-11-27 02:00 | NUR ---
NURSE NOTES: REPOSITIONED, ORAL CARE WAS DONE.
[2018-11-27] MEDS: D5NS 1,000 ML IV SCH ×2 (02:23→23:09)
--- NOTE | 2018-11-27 03:30 | NUR ---
NURSE NOTES: MORNING CARE AND ORAL CARE WAS DONE, NO BOWEL MOVEMENT AT THIS TIME.
[2018-11-27 04:00] VITALS: BP 110/65
[2018-11-27] MEDS: Piperacillin/Tazobactam 3.375 GM in D5W 110 ML IVPB SCH ×3 (05:46→21:14)
[2018-11-27] MEDS: NovoLOG Insulin Flexpen SUBQ SCH ×3 (05:47→17:31)
[2018-11-27] MEDS: Lacri-Lube Opth Oint 3.5gm BOTH EYES SCH ×3 (05:48→17:28)
--- NOTE | 2018-11-27 06:00 | NUR ---
NURSE NOTES: NO ACUTE DISTRESS NOTED AT THIS SHIFT.
--- NOTE | 2018-11-27 06:15 | Progress Note ---
DATE: 11/26/2018 SUBJECTIVE: The patient is not awake, not alert, afebrile, and hemodynamically stable. PHYSICAL EXAMINATION: VITAL SIGNS: Blood pressure 124/65, his pulse is 107, respirations of 30, and temperature 98.5 degrees. HEENT: Eyes were normal. ENT, mucous membranes are moist and intact. NECK: Supple with no JVD without lymph nodes. Tracheostomy site is clean. LUNGS: Clear without rhonchi, rales, or wheezing. Secretions are small, thin, and ramirez HEART: Normal sounds with regular beats. There is no S3, S4, or pericardial rub. ABDOMEN: Soft and nontender with normal bowel sounds. Gastrostomy site is clean. EXTREMITIES: Warm without cyanosis, clubbing, or edema. LABORATORY DATA: Hemoglobin is 8.7, hematocrit 36.2 with MCV of 94, WBC of 10.6, and his platelet count was 50,000. BUN and creatinine are 2 and 0.7 respectively. Sodium is 143, potassium 3.4, chloride 105, CO2 31, calcium is 8.9, phosphorus is 3.7, and magnesium is 1.8. SGOT and SGPT are normal. Alkaline phosphatase is moderately elevated. IMPRESSION: The patient is in stable condition. He is awaiting the transfer to the [facility]. We will transfer the patient that include respiratory therapy on arrival, being arranged by [facility]. Repeat laboratory tests will be done in morning. Matt Flores M.D. DR: GERRY JOB#: [id number] CC:
--- NOTE | 2018-11-27 07:30 | NUR ---
RESPIRATORY NOTE:Received pt on AC 18, 450VT, 40%, no PEEP. Pt is trach-dependent w/ a cuffed, Shiley 6 tube. Alarms are on and audible. No s/s of distress. Will cont. to monitor pt.
--- NOTE | 2018-11-27 07:36 | NUR ---
HAND-OFF: Report given to KOLE CANELA.
--- NOTE | 2018-11-27 07:37 | NUR ---
NURSE NOTES: Report received from Kelvin Greene RN. Pt is sleeping and does not open eyes. Facial gramice to pain noted. Sinus tachy on stonework tracer. Trach to vent. AC 18, TV 450, FiO2 40%. O2 sat 100%. No respiratory distress noted. G-tube in place. Will restart feeding when formula is available. Castrejon in place draining to gravity. Right IJ TLC patent and asymptomatic. D5NS is running at 50cc/hr. Bed in lowest position. Side rails up x3. Will resume plan of care.
[2018-11-27 08:00] VITALS: BP 125/76
[2018-11-27] MEDS: Pantoprazole Inj IV SCH (08:23)
--- NOTE | 2018-11-27 09:10 | NUR ---
NURSE NOTES: Oral care done. Turned and repositioned pt. No acute distress noted. Will continue to monitor.
--- NOTE | 2018-11-27 11:50 | Pulmonolgy Critical Care Note ---
Critical Care - Asmt/Plan Problems: (1) Septic shock (2) Healthcare-associated pneumonia (3) Cerebral infarction (4) Feeding by G-tube (5) Acute metabolic encephalopathy (6) Anemia Respiratory: monitor respiratory rate, adjust FIO2, CXR Cardiac: start pressors, stop pressors, continue to monitor HR/BP Renal: keep IV fluid, check electrolytes, other - k supplement Infectious Disease: check cultures Gastrointestinal: continue feedings/current rate, hold feedings Endocrine: check TSH, continue sliding scale insulin Hematologic: monitor H/H, transfuse if hgb<8.5 Neurologic: PRN Ativan, PRN Morphine, keep patient comfortable Affect: PRN ativan Prophylaxis: Protonix, Heparin Notes Reviewed: cardio Discussed with: nurses, consultants, 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 - Objective Last 24 Hour Vital Signs Date Time Temp Pulse Resp B/P (MAP) Pulse Ox O2 Delivery O2 Flow Rate FiO2 11/27/18 10:40 103 26 40 11/27/18 08:58 104 24 40 11/27/18 08:00 97.9 98 25 125/76 (92) 98 11/27/18 08:00 40 11/27/18 08:00 Mechanical Ventilator 11/27/18 07:48 100 11/27/18 07:30 104 28 40 11/27/18 05:20 100 23 40 11/27/18 04:00 Mechanical Ventilator 11/27/18 04:00 40 11/27/18 04:00 98.7 108 26 110/65 (80) 98 11/27/18 03:32 111 11/27/18 02:55 111 25 40 11/27/18 01:08 110 28 40 11/27/18 00:00 Mechanical Ventilator 11/27/18 00:00 40 11/27/18 00:00 98.7 110 28 114/73 (87) 99 11/26/18 23:34 112 11/26/18 22:58 112 26 40 11/26/18 20:52 89 30 40 11/26/18 20:00 98.5 107 30 124/65 (84) 98 11/26/18 20:00 40 11/26/18 20:00 Mechanical Ventilator 11/26/18 19:40 97 25 40 11/26/18 19:34 106 11/26/18 17:00 102 24 40 11/26/18 16:00 40 11/26/18 16:00 Mechanical Ventilator 11/26/18 16:00 91 11/26/18 16:00 96.6 98 29 127/85 (99) 97 11/26/18 15:20 96 28 40 11/26/18 13:16 87 30 40 11/26/18 12:00 91 11/26/18 12:00 Mechanical Ventilator 11/26/18 12:00 40 11/26/18 12:00 97.2 92 28 128/83 (98) 97 Status: obtunded HEENT: atraumatic Heart: HR/BP stable Abdomen: soft, active bowel sounds Extremities: no C/C/E Decubiti: stage Micro: Microbiology Date/Time Source Procedure Growth Status 11/25/18 04:30 Stool Clostridium difficile Toxin Assay - Final Complete Accucheck: 181 Critical Care - Subjective ROS Limited/Unobtainable: Yes Condition: critical EKG Rhythm: Sinus Rhythm FI02: 40 Vent Support Breath Rate: 18 Vent Support Mode: AC Vent Tidal Volume: 450 Sputum Amount: Moderate PEEP: 0.0 PIP: 24 Tube Feeding Amount: 0 I&O: Intake and Output 11/26/18 11/27/18 19:00 07:00 Intake Total 1401.3 ml 1244.0 ml Output Total 1900 ml 2500 ml Balance -498.7 ml -1256.0 ml Intake Free Water 150 ml IV Total 651.3 ml 744.0 ml Tube Feeding 600 ml 500 ml Output Urine Total 1900 ml 2500 ml # Bowel Movements 4 2 Law Carter MD Nov 27, 2018 11:50
[2018-11-27 12:00] VITALS: BP 104/60
--- NOTE | 2018-11-27 12:00 | NUR ---
NURSE NOTES: Pt is resting in bed. Oral care done. Repositioned pt. Pt is urinating a lot via Castrejon. Will continue to monitor.
[2018-11-27] MEDS: Amikacin 950 MG in NS 110 ML IV SCH (13:46)
[2018-11-27] MEDS ORDERED: D5NS 1000ml IV ONE (15:27)
[2018-11-27] MEDS ORDERED: Sterile Water Irrig 1000ml IRRIG ONE (15:27)
[2018-11-27] MEDS ORDERED: NS 275ml ONE (15:27)
[2018-11-27] MEDS ORDERED: Tubing IV Secondary IV ONE (15:27)
[2018-11-27 16:00] VITALS: BP 116/73
--- NOTE | 2018-11-27 16:29 | NUR ---
CASE MANAGEMENT: REVIEW 11/27/2018 SI: SEPSIS. PNA. T 98.5 HR 98 RR 21 B/P 104/60 SATS 97% ON MECH VENT FiO2 40 NO LABS TODAY IS: IVF @ 50 mL/HR PROTONIX IV QD AMIKACIN IV Q24H KCL IV Q2H INSULIN ASPART SUBQ Q6H ZOSYN IV Q8H STEP DOWN UNIT STATUS DCP: PATIENT IS FROM [facility]
--- NOTE | 2018-11-27 17:59 | NUR ---
NURSE NOTES: Cleaned pt for moderate brown BM. Turned and repositioned pt. Castrejon removed and placed condom catheter. Will continue to monitor.
--- NOTE | 2018-11-27 19:03 | NUR ---
RESPIRATORY NOTE: RECEIVED PT ON CURRENT VENTS SETTINGS: AC 18 450 45%. PT ABBEY CURRENT VENT SETTINGS WELL. SHILEY 6 TRACH SECURE AND PATENT. VENT PLUGGED INTO RED OUTLET. ALARMS ARE ON, AUDIBLE AND FUNCTIONING. SX SMALL THICK WHITE/YELLOW SECRETIONS. AMBU BAG AND SPARE TRACH AT BEDSIDE. WILL CONTINUE MONITORING PT.
--- NOTE | 2018-11-27 19:11 | NUR ---
HAND-OFF: Report given to Nancy Salamanca RN.
--- NOTE | 2018-11-27 19:30 | NUR ---
NURSE NOTES: Received patient from Safia SHARIF. Patient is asleep. Receiving Oxygen via Trach Shiley 6 with settings AC 18 TV 450 FiO2 40% PEEP 0. Patient has a G Tube that is patent and patient is receiving Vital AF 1.2 at 50cc/hr, patient is tolerating feeding with no residuals. Patient has a Sacral Stage 2 pressure ulcer currently covered with optifoam. Patient's IV site is Right Internal Jugular TLC that is patent and asymptomatic receiving D5NS at 50cc/hr. Patient has a condom catheter that is intact and draining. Bed is locked, placed in lowest positions, side rails up x3, call light within reach. Will continue to monitor.
[2018-11-27 20:00] VITALS: BP 130/68
[2018-11-27] MEDS: Dyna-Hex 2% Top Sol 2oz TOPIC SCH (20:22)
--- NOTE | 2018-11-27 20:37 | General Progress Note ---
Assessment/Plan Assessment/Plan Assessment and Recs: # Thrombocytopenia - potential causes multifactorial, at this time, likely due to infection, Peripheral smear ordered to evaluate for blasts /schistocytes does show some mild bandemia and immature cells --> flow cytometry reviewed and is negative for abnormal clonal population --> Hep panel and HIV negative from prior admission --> US abd to evaluate for cirrhosis and hsm ordered is negative for ascites --> abx and other meds have been reviewed --> plt 40k-->50k-->96k --> Transfuse if Plt < 20k and fever, or if Plt < 10k without fever # Anemia of chronic disease -- panel has been ordered and reviewed, ferritin is >1000, tibc is low --> maintain hgb above 7 --> panel reviewed, no hemolysis, peripheral smear is wnl --> monitor for bleeding --> gi recs appreciated --> would hold off any iron at this time --> cea is 7.8 --> hgb trend 8.3-->8.8-->8.7 # Coagulopathy - potentailly related to decreased po intake --> consider vit K prior to any proecedure --> ffp as well if patient bleeds # Gastrostomy tube dependent --> started tube feeds # Rectal tube in place from before --> wound care # Clostridium difficile diarrhea --> s.p prior rx # Dehydration # Iron deficiency # Tracheostomy ++/vent --> per pulm recs # Encephalopathy The timing of this note does not necessarily reflect the time of the patient was seen. Greatly appreciate consultation! Subjective HEENT: Denies: no symptoms, eye pain, blurred vision, tearing, double vision, ear pain, ear discharge, nose pain, nose congestion, throat pain, throat swelling, mouth pain, mouth swelling, other Cardiovascular: Denies: no symptoms, chest pain, edema, irregular heart rate, lightheadedness, palpitations, syncope, other Respiratory: Denies: no symptoms, cough, orthopnea, shortness of breath, SOB with excertion, SOB at rest, sputum, stridor, wheezing, other Gastrointestinal/Abdominal: Denies: no symptoms, abdomen distended, abdominal pain, black stools, tarry stools, blood in stool, constipated, diarrhea, difficulty swallowing, nausea, poor appetite, poor fluid intake, rectal bleeding , vomiting, other Genitourinary: Denies: no symptoms, burning, discharge, frequency, flank pain, hematuria, incontinence, pain, urgency, other Neurologic/Psychiatric: Denies: no symptoms, anxiety, depressed, emotional problems, headache, numbness, paresthesia, pre-existing deficit, seizure, tingling, tremors, weakness, other Endocrine: Denies: no symptoms, excessive sweating, flushing, intolerance to cold, intolerance to heat, increased hunger, increased thirst, increased urine, unexplained weight gain, unexplained weight loss, other Allergies: Coded Allergies: No Known Allergies (Unverified , 10/11/18) Subjective 11/22: plts are lower today as is cbc/hgb, trending closely, low threshold to transfusion 11/23: k is low, no fevers, no chills, cbc reviewed, plt remains low 11/24: no events, cbc reviewed, trach to vent, repositioned today 11/25: on abx broad spectrum, seen by pulm, repositioned during exam 11/27: no fevers or chills, on abx, on a vent, gtube in place Objective Last 24 Hour Vital Signs Date Time Temp Pulse Resp B/P (MAP) Pulse Ox O2 Delivery O2 Flow Rate FiO2 11/27/18 20:00 Mechanical Ventilator 11/27/18 19:27 106 11/27/18 19:01 97 21 40 11/27/18 17:30 Mechanical Ventilator 11/27/18 16:42 99 23 40 11/27/18 16:00 97.8 107 28 116/73 (87) 97 11/27/18 16:00 40 11/27/18 16:00 Mechanical Ventilator 11/27/18 15:40 102 11/27/18 14:40 101 22 40 11/27/18 12:40 105 23 40 11/27/18 12:00 40 11/27/18 12:00 Mechanical Ventilator 11/27/18 12:00 98.5 98 21 104/60 (75) 97 11/27/18 11:46 100 11/27/18 10:40 103 26 40 11/27/18 08:58 104 24 40 11/27/18 08:00 97.9 98 25 125/76 (92) 98 11/27/18 08:00 40 11/27/18 08:00 Mechanical Ventilator 11/27/18 07:48 100 11/27/18 07:30 104 28 40 11/27/18 05:20 100 23 40 11/27/18 04:00 Mechanical Ventilator 11/27/18 04:00 40 11/27/18 04:00 98.7 108 26 110/65 (80) 98 11/27/18 03:32 111 11/27/18 02:55 111 25 40 11/27/18 01:08 110 28 40 11/27/18 00:00 Mechanical Ventilator 11/27/18 00:00 40 11/27/18 00:00 98.7 110 28 114/73 (87) 99 11/26/18 23:34 112 11/26/18 22:58 112 26 40 11/26/18 20:52 89 30 40 Intake and Output 11/26/18 11/27/18 18:59 06:59 Intake Total 1376.3 ml 1266.5 ml Output Total 1900 ml 2500 ml Balance -523.7 ml -1233.5 ml Intake Free Water 150 ml IV Total 626.3 ml 716.5 ml Tube Feeding 600 ml 550 ml Output Urine Total 1900 ml 2500 ml # Bowel Movements 4 2 Laboratory Tests 11/27/18 20:00: Urine Legionella Antigen [Pending] Height (Feet): 5 Height (Inches): 8.00 Weight (Pounds): 140 Objective Vitals: have been reviewed Gen: no apparent distress Head: normocephalic EENT: PERRL/EOMI Neck: supple, tracheotomy +++ Respiratory: normal breath sounds, no respiratory distress ++ trach Cardiovascular: normal rate Gastrointestinal: normal inspection, non tender, soft, normal bs, gt+++ Rectal: deferred Genitourinary: deferred Musculoskeletal: normal inspection, back normal Skin: normal color, no rash, warm/dry Lymphatic: normal inspection, no adenopathy Antonio Higgins MD Nov 27, 2018 20:37
[2018-11-28] VITALS: BP 113/66
[2018-11-28] MEDS: Lacri-Lube Opth Oint 3.5gm BOTH EYES SCH ×5 (00:20→23:56)
[2018-11-28] MEDS: Acetaminophen 650mg/20.3ml GT PRN ×2 (00:25→23:05)
--- NOTE | 2018-11-28 00:25 | NUR ---
NURSE NOTES: Patients temperature was 100.5F. Tylenol PRN was given as ordered and applied cooling measure. Will continue to monitor change in position.
[2018-11-28] MEDS: NovoLOG Insulin Flexpen SUBQ SCH ×5 (00:35→23:56)
--- NOTE | 2018-11-28 03:15 | Progress Note ---
DATE: 11/27/2018 CARDIOLOGY PROGRESS NOTE SUBJECTIVE: The patient is off pressors. He is on ventilator support via trach. Monitored sinus tachycardia. OBJECTIVE: VITAL SIGNS: Blood pressure 125/76, pulse 104, respirations 24. No fevers. LUNGS: Coarse breath sounds. Scattered rhonchi. HEART: Regular rhythm. Rapid rate. Normal S1, S2. ABDOMEN: Soft. G-tube intact. EXTREMITIES: Trace edema. LABORATORY DATA: Labs reviewed. IMPRESSION: 1. Sepsis with shock, recovered. 2. Ventilator-dependent respiratory failure, secondary sinus tachycardia. 3. Ymndncpj-ji-[id number] protein-calorie malnutrition. 4. Dysphagia with G-tube. 5. Encephalopathy due to cerebrovascular accident. 6. Prognosis, long-term is poor. PLAN: 1. Antimicrobials. 2. Ventilator support. 3. Respiratory therapy. 4. DVT and stress ulcer prophylaxis. 5. Volume management. 6. No role for antiarrhythmic. 7. Avoid pressors. 8. Followup hemoglobin. Jorge A Morales M.D. DR: WOLF JOB#: [id number] CC:
[2018-11-28 04:00] VITALS: BP 113/58
[2018-11-28 04:38] LABS: BASOPHILS % (AUTO) 0.6 % (0.0-2.0); EOSINOPHILS % (AUTO) 3.3 % (0.0-3.0); HEMATOCRIT 29.7 % (42.0-52.0); HEMOGLOBIN 9.6 G/DL (14.2-18.0); LYMPHOCYTES % (AUTO) 30.7 % (20.0-45.0); MEAN CORPUSCULAR VOLUME 93 FL (80-99); MONOCYTES % (AUTO) 8.5 % (1.0-10.0); NEUTROPHILS % (AUTO) 56.9 % (45.0-75.0); PLATELET COUNT 241 K/UL (150-450); RED CELL DISTRIBUTION WIDTH 17.2 % (11.6-14.8); WHITE BLOOD COUNT 10.2 K/UL (4.8-10.8)
[2018-11-28 05:03] LABS: PHOSPHORUS 4.2 MG/DL (2.5-4.9)
[2018-11-28 05:05] LABS: ALANINE AMINOTRANSFERASE 26 U/L (12-78); ALBUMIN/GLOBULIN RATIO 0.4 (1.0-2.7); ALKALINE PHOSPHATASE 250 U/L (46-116); ANION GAP 8 mmol/L (5-15); ASPARTATE AMINO TRANSFERASE 21 U/L (15-37); BILIRUBIN,TOTAL 0.3 MG/DL (0.2-1.0); BLOOD UREA NITROGEN 9 mg/dL (7-18); CALCIUM 9.9 MG/DL (8.5-10.1); CARBON DIOXIDE 31 MMOL/L (21-32); CHLORIDE 101 MMOL/L (98-107); CREATININE 0.8 MG/DL (0.55-1.30); POTASSIUM 4.1 MMOL/L (3.5-5.1); SODIUM 140 MMOL/L (136-145)
--- NOTE | 2018-11-28 05:30 | Progress Note ---
DATE: 11/27/2018 SUBJECTIVE: The patient is obtunded, not awake, not alert, afebrile, and hemodynamically stable. PHYSICAL EXAMINATION: VITAL SIGNS: Blood pressure is 130/68, pulse is 104, respirations of 21, temperature of 98.4. HEENT: Eyes were normal. ENT, mucous membranes are moist and intact. NECK: Supple with no JVD without lymph nodes. Tracheostomy site is clean. LUNGS: Clear without rhonchi, rales, or wheezing. Secretions are small, thin, and ramirez. HEART: Normal sounds with regular beats. There is no S3, S4, or pericardial rub. ABDOMEN: Soft and nontender with normal bowel sounds. Gastrostomy site is clean. EXTREMITIES: Warm without cyanosis, clubbing, or edema. LABORATORY DATA: Hemoglobin is 8.7, hematocrit 26.2 with MCV of 94, WBC of 10.8, and platelets of . IMPRESSION: The patient is afebrile, hemodynamically stable. He has been depressive. Repeat laboratory tests will be done in the a.m. Matt Flores M.D. DR: KEVIN JOB#: [id number] CC:
[2018-11-28] MEDS: Piperacillin/Tazobactam 3.375 GM in D5W 110 ML IVPB SCH ×3 (05:50→22:20)
--- NOTE | 2018-11-28 06:33 | NUR ---
RESPIRATORY NOTE: Received patient on ordered vent settings. Patient tracheostomy tube is patent and secured. Suctioned patient PRN. No resp distress noted. Vent alarms are on and audible. Vent is plugged into red outlet. Will monitor patient progress.
--- NOTE | 2018-11-28 07:32 | NUR ---
HAND-OFF: Report given to Halina SHARIF. No signs of distress, no fever.
--- NOTE | 2018-11-28 07:33 | NUR ---
NURSE NOTES: Received patient from KOLE Cruz. Patient VS stable at this time with no sign of acute distress. Patient sleeping at this time. Patient opens eyes but does not track. Patient showing sinus tachycardia on the monitor. Patient on trach to ventilator with setting of AC 18, TV 450, FiO2 40%, and PEEP and oxygen saturation of 99%. Patient has a gastrostomy tube that is patent, asymptomatic, and running Vital AF 1.2 at 50mL/hr. Patient has a condom catheter that is patent and intact at this time. Patient had a conrad that was removed yesterday. Patient reportedly having diarrhea and now has a sacral excoriation/stage 2 pressure ulcer. Wound is covered with Optifoam and triad cream. Will follow up with wound care nurse for wound care orders. Patient on a low air loss/pressure release mattress. Patient has a right internal jugular triple lumen catheter that is patent, asymptomatic, and running D5NS at 50mL/hr at this time. Central line dressing done yesterday. Patient had a 100.5 degree fever last night which was resolved with on dose of tylenol. Message left for Dr Leonard. Will follow up with Dr Leonard when she rounds on the patient. Patient bed in low position with bed alarm on and call light in reach at this time.
[2018-11-28 08:00] VITALS: BP 107/67
[2018-11-28] MEDS: Pantoprazole Inj IV SCH (08:36)
--- NOTE | 2018-11-28 10:00 | NUR ---
NURSE NOTES: Patient cleaned and repositioned and oral care performed at this time. Patient had a BM at this time. Consistency thin. Patient has already tested negative for C.diff.
--- NOTE | 2018-11-28 10:09 | Pulmonolgy Critical Care Note ---
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 manager - Objective Last 24 Hour Vital Signs Date Time Temp Pulse Resp B/P (MAP) Pulse Ox O2 Delivery O2 Flow Rate FiO2 11/28/18 08:32 112 18 40 11/28/18 08:01 40 11/28/18 08:00 Mechanical Ventilator 11/28/18 08:00 98.4 102 18 107/67 (80) 99 11/28/18 08:00 105 11/28/18 06:33 110 20 40 11/28/18 05:25 108 19 40 11/28/18 04:00 99.0 104 20 113/58 (76) 99 11/28/18 04:00 111 11/28/18 04:00 Mechanical Ventilator 11/28/18 04:00 40 11/28/18 02:15 109 20 40 11/28/18 01:35 119 22 40 11/28/18 00:55 98.3 11/28/18 00:00 Mechanical Ventilator 11/28/18 00:00 40 11/28/18 00:00 100.5 118 20 113/66 (82) 98 11/27/18 23:42 116 11/27/18 22:49 109 18 40 11/27/18 20:48 115 24 40 11/27/18 20:00 98.4 104 20 130/68 (88) 98 11/27/18 20:00 40 11/27/18 20:00 Mechanical Ventilator 11/27/18 19:27 106 11/27/18 19:01 97 21 40 11/27/18 17:30 Mechanical Ventilator 11/27/18 16:42 99 23 40 11/27/18 16:00 97.8 107 28 116/73 (87) 97 11/27/18 16:00 40 11/27/18 16:00 Mechanical Ventilator 11/27/18 15:40 102 11/27/18 14:40 101 22 40 11/27/18 12:40 105 23 40 11/27/18 12:00 40 11/27/18 12:00 Mechanical Ventilator 11/27/18 12:00 98.5 98 21 104/60 (75) 97 11/27/18 11:46 100 11/27/18 10:40 103 26 40 Status: obtunded Condition: critical HEENT: atraumatic Heart: HR/BP stable, HR/BP unstable Abdomen: non-tender, feeding tube Extremities: no C/C/E Micro: Microbiology Date/Time Source Procedure Growth Status 11/28/18 04:00 Nasal Nares Left Influenza Types A,B Antigen (FATMATA) - Final Complete Accucheck: 177 Critical Care - Subjective ROS Limited/Unobtainable: No Condition: critical EKG Rhythm: Sinus Rhythm FI02: 40 Vent Support Breath Rate: 18 Vent Support Mode: AC Vent Tidal Volume: 450 Sputum Amount: Small PEEP: 0.0 PIP: 18 Tube Feeding Amount: 50 I&O: Intake and Output 11/27/18 11/28/18 19:00 07:00 Intake Total 1806.3 ml 1300.0 ml Output Total 2850 ml 1500 ml Balance -1043.7 ml -200.0 ml Intake Free Water 100 ml IV Total 1106.3 ml 650.0 ml Tube Feeding 550 ml 650 ml Other 50 ml Output Urine Total 2850 ml 1500 ml # Bowel Movements 1 1 CXR: pending Labs: Laboratory Tests Test 11/27/18 20:00 11/28/18 04:20 Urine Legionella Antigen Pending White Blood Count 10.2 K/UL (4.8-10.8) Red Blood Count 3.20 M/UL (4.70-6.10) L Hemoglobin 9.6 G/DL (14.2-18.0) L Hematocrit 29.7 % (42.0-52.0) L Mean Corpuscular Volume 93 FL (80-99) Mean Corpuscular Hemoglobin 30.0 PG (27.0-31.0) Mean Corpuscular Hemoglobin Concent 32.3 G/DL (32.0-36.0) Red Cell Distribution Width 17.2 % (11.6-14.8) H Platelet Count 241 K/UL (150-450) Mean Platelet Volume 5.8 FL (6.5-10.1) L Neutrophils (%) (Auto) 56.9 % (45.0-75.0) Lymphocytes (%) (Auto) 30.7 % (20.0-45.0) Monocytes (%) (Auto) 8.5 % (1.0-10.0) Eosinophils (%) (Auto) 3.3 % (0.0-3.0) H Basophils (%) (Auto) 0.6 % (0.0-2.0) Sodium Level 140 MMOL/L (136-145) Potassium Level 4.1 MMOL/L (3.5-5.1) Chloride Level 101 MMOL/L (98-107) Carbon Dioxide Level 31 MMOL/L (21-32) Anion Gap 8 mmol/L (5-15) Blood Urea Nitrogen 9 mg/dL (7-18) Creatinine 0.8 MG/DL (0.55-1.30) Estimat Glomerular Filtration Rate > 60 mL/min (>60) Glucose Level 198 MG/DL (74-106) H Calcium Level 9.9 MG/DL (8.5-10.1) Phosphorus Level 4.2 MG/DL (2.5-4.9) Magnesium Level 2.0 MG/DL (1.8-2.4) Total Bilirubin 0.3 MG/DL (0.2-1.0) Aspartate Amino Transf (AST/SGOT) 21 U/L (15-37) Alanine Aminotransferase (ALT/SGPT) 26 U/L (12-78) Alkaline Phosphatase 250 U/L (46-116) H Total Protein 7.6 G/DL (6.4-8.2) Albumin 2.0 G/DL (3.4-5.0) L Globulin 5.6 g/dL Albumin/Globulin Ratio 0.4 (1.0-2.7) L Law Carter MD Nov 28, 2018 10:09
--- NOTE | 2018-11-28 11:13 | NUR ---
RD ASSESSMENT & RECOMMENDATIONS SEE CARE ACTIVITY FOR COMPLETE ASSESSMENT DAILY ESTIMATED NEEDS: Needs based on Critical care, underweight, wound 51kg 25-30 kcals/kg 6053-8662 total kcals 1.25-2 g protein/kg 64-102 g total protein 25-30 mL/kg 7547-4055 total fluid mLs NUTRITION DIAGNOSIS: 1) Swallowing difficulty r/t respiratory status as evidenced by pt is vent dep via trach, PEG dep for all nutritional needs 2) Altered nutrition related lab values R/T diabetes, clinical condition as evidenced by A1C of 7.1, low Hgb (9.6), elev BNP(2152-> 4168), lytes now wnl. 3) Increased pro needs r/t wound healing as evidenced by pt w/ partial thickness pressure injury to R buttock. CURRENT TF: Vital AF 1.2 @50ml/hr ENTERAL NUTRITION RECOMMENDATIONS: VITAL AF 1.2 @50ml/hr x24 hrs to provide 1200ml, 1440 kcal (28kcal/kg), 90g prot (1.7g/kg), 973ml free H2O - Maintain w/ hemodynamic stability Vital 1.2 @50ml/hr for 24hrs. - Flush per MD. HOB over 30 degrees ADDITIONAL RECOMMENDATIONS: 1) RE-calibrate bed scale w/ added P200 mattress + pump PER SNF: 112#, 66 inches tall 2) F/up w/ WC eval for sacral redness-> ADD JANUARY BID + Vit C 250mg daily 3) Monitor lytes, replete as needed 4) Feed w/ hemodynamic stability . .
[2018-11-28 12:00] VITALS: BP 109/68
[2018-11-28] MEDS: Amikacin 950 MG in NS 110 ML IV SCH (12:28)
--- NOTE | 2018-11-28 12:47 | NUR ---
RADIOLOGY DEPT., CHEST X-RAY DONE.-P.DYE
--- NOTE | 2018-11-28 13:27 | General Progress Note ---
Assessment/Plan Assessment/Plan Assessment and Recs: # Thrombocytopenia - potential causes multifactorial, at this time, likely due to infection, Peripheral smear ordered to evaluate for blasts /schistocytes does show some mild bandemia and immature cells --> flow cytometry reviewed and is negative for abnormal clonal population --> Hep panel and HIV negative from prior admission --> US abd to evaluate for cirrhosis and hsm ordered is negative for ascites --> abx and other meds have been reviewed --> plt 40k-->50k-->96k-_>240k --> Transfuse if Plt < 20k and fever, or if Plt < 10k without fever # Anemia of chronic disease -- panel has been ordered and reviewed, ferritin is >1000, tibc is low --> maintain hgb above 7 --> panel reviewed, no hemolysis, peripheral smear is wnl --> monitor for bleeding --> gi recs appreciated --> would hold off any iron at this time --> cea is 7.8 --> hgb trend 8.3-->8.8-->8.7 # Coagulopathy - potentailly related to decreased po intake --> consider vit K prior to any proecedure --> ffp as well if patient bleeds # Gastrostomy tube dependent --> continue tube feeds # Rectal tube in place from before --> wound care # Clostridium difficile diarrhea --> s/p prior rx # Dehydration --> s/p ivf have been given # Iron deficiency --> iron iv has been given # Tracheostomy ++/vent --> per pulm recs # Encephalopathy The timing of this note does not necessarily reflect the time of the patient was seen. Greatly appreciate consultation! Subjective HEENT: Denies: no symptoms, eye pain, blurred vision, tearing, double vision, ear pain, ear discharge, nose pain, nose congestion, throat pain, throat swelling, mouth pain, mouth swelling, other Genitourinary: Denies: no symptoms, burning, discharge, frequency, flank pain, hematuria, incontinence, pain, urgency, other Neurologic/Psychiatric: Denies: no symptoms, anxiety, depressed, emotional problems, headache, numbness, paresthesia, pre-existing deficit, seizure, tingling, tremors, weakness, other Endocrine: Denies: no symptoms, excessive sweating, flushing, intolerance to cold, intolerance to heat, increased hunger, increased thirst, increased urine, unexplained weight gain, unexplained weight loss, other Hematologic/Lymphatic: Denies: no symptoms, anemia, easy bleeding, easy bruising, other Allergies: Coded Allergies: No Known Allergies (Unverified , 10/11/18) Subjective 11/22: plts are lower today as is cbc/hgb, trending closely, low threshold to transfusion 11/23: k is low, no fevers, no chills, cbc reviewed, plt remains low 11/24: no events, cbc reviewed, trach to vent, repositioned today 11/25: on abx broad spectrum, seen by pulm, repositioned during exam 11/27: no fevers or chills, on abx, on a vent, gtube in place 11/28: trach to vent, no complaints, no f/c, plt better Objective Last 24 Hour Vital Signs Date Time Temp Pulse Resp B/P (MAP) Pulse Ox O2 Delivery O2 Flow Rate FiO2 11/28/18 12:00 Mechanical Ventilator 11/28/18 12:00 40 11/28/18 12:00 98.2 101 18 109/68 (82) 99 11/28/18 11:02 109 18 40 11/28/18 08:32 112 18 40 11/28/18 08:01 40 11/28/18 08:00 Mechanical Ventilator 11/28/18 08:00 98.4 102 18 107/67 (80) 99 11/28/18 08:00 105 11/28/18 06:33 110 20 40 11/28/18 05:25 108 19 40 11/28/18 04:00 99.0 104 20 113/58 (76) 99 11/28/18 04:00 111 11/28/18 04:00 Mechanical Ventilator 11/28/18 04:00 40 11/28/18 02:15 109 20 40 11/28/18 01:35 119 22 40 11/28/18 00:55 98.3 11/28/18 00:00 Mechanical Ventilator 11/28/18 00:00 40 11/28/18 00:00 100.5 118 20 113/66 (82) 98 11/27/18 23:42 116 11/27/18 22:49 109 18 40 11/27/18 20:48 115 24 40 11/27/18 20:00 98.4 104 20 130/68 (88) 98 11/27/18 20:00 40 11/27/18 20:00 Mechanical Ventilator 11/27/18 19:27 106 11/27/18 19:01 97 21 40 11/27/18 17:30 Mechanical Ventilator 11/27/18 16:42 99 23 40 11/27/18 16:00 97.8 107 28 116/73 (87) 97 11/27/18 16:00 40 11/27/18 16:00 Mechanical Ventilator 11/27/18 15:40 102 11/27/18 14:40 101 22 40 Intake and Output 11/27/18 11/28/18 19:00 07:00 Intake Total 1806.3 ml 1300.0 ml Output Total 2850 ml 1500 ml Balance -1043.7 ml -200.0 ml Intake Free Water 100 ml IV Total 1106.3 ml 650.0 ml Tube Feeding 550 ml 650 ml Other 50 ml Output Urine Total 2850 ml 1500 ml # Bowel Movements 1 1 Laboratory Tests 11/27/18 20:00: Urine Legionella Antigen [Pending] 11/28/18 04:20: White Blood Count 10.2, Red Blood Count 3.20L, Hemoglobin 9.6L, Hematocrit 29.7L , Mean Corpuscular Volume 93, Mean Corpuscular Hemoglobin 30.0, Mean Corpuscular Hemoglobin Concent 32.3, Red Cell Distribution Width 17.2H, Platelet Count 241, Mean Platelet Volume 5.8L, Neutrophils (%) (Auto) 56.9, Lymphocytes (%) (Auto) 30.7, Monocytes (%) (Auto) 8.5, Eosinophils (%) (Auto) 3.3H, Basophils (%) (Auto) 0.6, Sodium Level 140, Potassium Level 4.1, Chloride Level 101, Carbon Dioxide Level 31, Anion Gap 8, Blood Urea Nitrogen 9, Creatinine 0.8, Estimat Glomerular Filtration Rate > 60, Glucose Level 198H, Calcium Level 9.9, Phosphorus Level 4.2, Magnesium Level 2.0, Total Bilirubin 0.3, Aspartate Amino Transf (AST/SGOT) 21, Alanine Aminotransferase (ALT/SGPT) 26, Alkaline Phosphatase 250H, Total Protein 7.6, Albumin 2.0L, Globulin 5.6, Albumin/Globulin Ratio 0.4L Height (Feet): 5 Height (Inches): 8.00 Weight (Pounds): 140 Objective Vitals: have been reviewed Gen: no apparent distress Head: normocephalic EENT: PERRL/EOMI Neck: supple, tracheotomy +++ Respiratory: normal breath sounds, no respiratory distress ++ trach Cardiovascular: normal rate Gastrointestinal: normal inspection, non tender, soft, normal bs, gt+++ Rectal: deferred Genitourinary: deferred Musculoskeletal: normal inspection, back normal Skin: normal color, no rash, warm/dry Lymphatic: normal inspection, no adenopathy Antonio Higgins MD Nov 28, 2018 13:27
--- NOTE | 2018-11-28 14:16 | Diagnostic Imaging Report ---
Indication: Dyspnea Technique: One view of the chest Comparison: 11/24/2018 Findings: Bilateral diffuse interstitial and airspace disease has improved significantly, but still remains considerable. Bandlike opacity in the right midlung may reflect atelectasis versus fluid in the minor fissure. Right-sided pleural effusion persists. Left-sided pleural effusion appears improved. Tracheostomy and right jugular central venous catheter are again demonstrated. The heart size is normal Impression: Improved but persistent and still considerable bilateral interstitial and airspace disease, since previous study of 11/24/2018 Improved left, persistent right pleural effusions Other findings as noted
--- NOTE | 2018-11-28 14:26 | Infectious Diseases Prog Note ---
Assessment/Plan Assessment/Plan Abx: IV Zosyn 11/19- IV Amikacin 11/20- Levaquin x1 11/19 Assessment: Septic shock, SP- 2ry to PNA -11/28 cXR: Improved but persistent and still considerable bilateral interstitial and airspace disease, since previous study of 11/24/2018 Improved left, persistent right pleural effusions -11/24 CXR: Extensive consolidation bilaterally unchanged. There is a left pleural effusion noted. 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 -11/19 Bcx neg -influenza sc neg -sp cx p Low grade fever Leukocytosis, SP Lactic acidosis, SP Acute on chronic respiratory failure Mild LFTs elevation, SP CVA, Anoxic encephalopathy dysphagia s/p GT COPD Dm2 HTN GERD HLD chronic respiratory failure trach dependant SNF resident Plan: -Continue empiric Zosyn 06/08 and IV Amikacin 05/09 for PNA -f.u cx -Monitor CBC/CMP, temperatures -f/u sp cx, legionella ag urine -PEG/trach care -aspiration precautions -wound care per hospital protocol Will continue to follow along with you. Subjective Allergies: Coded Allergies: No Known Allergies (Unverified , 10/11/18) Subjective transferred out of i[facility] to [facility] tm 100.5 fios 40% no leukocytosis CXR improved Objective Vital Signs Last 24 Hour Vital Signs Date Time Temp Pulse Resp B/P (MAP) Pulse Ox O2 Delivery O2 Flow Rate FiO2 11/28/18 13:01 112 20 40 11/28/18 12:00 100 11/28/18 12:00 Mechanical Ventilator 11/28/18 12:00 40 11/28/18 12:00 98.2 101 18 109/68 (82) 99 11/28/18 11:02 109 18 40 11/28/18 08:32 112 18 40 11/28/18 08:01 40 11/28/18 08:00 Mechanical Ventilator 11/28/18 08:00 98.4 102 18 107/67 (80) 99 11/28/18 08:00 105 11/28/18 06:33 110 20 40 11/28/18 05:25 108 19 40 11/28/18 04:00 99.0 104 20 113/58 (76) 99 11/28/18 04:00 111 11/28/18 04:00 Mechanical Ventilator 11/28/18 04:00 40 11/28/18 02:15 109 20 40 11/28/18 01:35 119 22 40 11/28/18 00:55 98.3 11/28/18 00:00 Mechanical Ventilator 11/28/18 00:00 40 11/28/18 00:00 100.5 118 20 113/66 (82) 98 11/27/18 23:42 116 11/27/18 22:49 109 18 40 11/27/18 20:48 115 24 40 11/27/18 20:00 98.4 104 20 130/68 (88) 98 11/27/18 20:00 40 11/27/18 20:00 Mechanical Ventilator 11/27/18 19:27 106 11/27/18 19:01 97 21 40 11/27/18 17:30 Mechanical Ventilator 11/27/18 16:42 99 23 40 11/27/18 16:00 97.8 107 28 116/73 (87) 97 11/27/18 16:00 40 11/27/18 16:00 Mechanical Ventilator 11/27/18 15:40 102 11/27/18 14:40 101 22 40 Height (Feet): 5 Height (Inches): 8.00 Weight (Pounds): 140 Objective GENERAL: Trached on Vent satting swell on 40% O2 LUNGS: Bilateral coarse breath sounds . HEART: RRR Normal S1, S2. ABDOMEN: Soft. G-tube intact. EXTREMITIES: There is trace edema. Microbiology Date/Time Source Procedure Growth Status 11/28/18 04:00 Nasal Nares Left Influenza Types A,B Antigen (FATMATA) - Final Complete Laboratory Tests Test 11/27/18 20:00 11/28/18 04:20 Urine Legionella Antigen Pending White Blood Count 10.2 K/UL (4.8-10.8) Red Blood Count 3.20 M/UL (4.70-6.10) L Hemoglobin 9.6 G/DL (14.2-18.0) L Hematocrit 29.7 % (42.0-52.0) L Mean Corpuscular Volume 93 FL (80-99) Mean Corpuscular Hemoglobin 30.0 PG (27.0-31.0) Mean Corpuscular Hemoglobin Concent 32.3 G/DL (32.0-36.0) Red Cell Distribution Width 17.2 % (11.6-14.8) H Platelet Count 241 K/UL (150-450) Mean Platelet Volume 5.8 FL (6.5-10.1) L Neutrophils (%) (Auto) 56.9 % (45.0-75.0) Lymphocytes (%) (Auto) 30.7 % (20.0-45.0) Monocytes (%) (Auto) 8.5 % (1.0-10.0) Eosinophils (%) (Auto) 3.3 % (0.0-3.0) H Basophils (%) (Auto) 0.6 % (0.0-2.0) Sodium Level 140 MMOL/L (136-145) Potassium Level 4.1 MMOL/L (3.5-5.1) Chloride Level 101 MMOL/L (98-107) Carbon Dioxide Level 31 MMOL/L (21-32) Anion Gap 8 mmol/L (5-15) Blood Urea Nitrogen 9 mg/dL (7-18) Creatinine 0.8 MG/DL (0.55-1.30) Estimat Glomerular Filtration Rate > 60 mL/min (>60) Glucose Level 198 MG/DL (74-106) H Calcium Level 9.9 MG/DL (8.5-10.1) Phosphorus Level 4.2 MG/DL (2.5-4.9) Magnesium Level 2.0 MG/DL (1.8-2.4) Total Bilirubin 0.3 MG/DL (0.2-1.0) Aspartate Amino Transf (AST/SGOT) 21 U/L (15-37) Alanine Aminotransferase (ALT/SGPT) 26 U/L (12-78) Alkaline Phosphatase 250 U/L (46-116) H Total Protein 7.6 G/DL (6.4-8.2) Albumin 2.0 G/DL (3.4-5.0) L Globulin 5.6 g/dL Albumin/Globulin Ratio 0.4 (1.0-2.7) L Current Medications Medications (Trade) Dose Ordered Sig/Last Route PRN Reason Start Time Stop Time Status Last Admin Dose Admin Acetaminophen (Tylenol) 650 mg Q4H PRN GT Mild Pain/Temp > 100.5 11/26/18 09:30 12/20/18 21:29 11/28/18 00:25 Amikacin Protocol (Amikacin pharmacy to dose) 1 ea DAILY PRN MISC Per rx protocol 11/26/18 09:00 12/20/18 08:59 Amikacin Sulfate 950 mg/Sodium Chloride 113.8 ml @ 220 mls/hr Q24H IV 11/26/18 12:30 11/29/18 12:29 11/28/18 12:28 Artificial Tears (Lacri-Lube) 1 applic Q6HR BOTH EYES 11/26/18 12:00 12/20/18 11:59 11/28/18 12:28 Chlorhexidine Gluconate (Petra-Hex 2%) 1 applic DAILY@2000 TOPIC 11/26/18 20:00 12/21/18 19:59 11/27/18 20:22 Dextrose (Dextrose 50%) 25 ml Q30M PRN IV Hypoglycemia 11/26/18 06:30 12/20/18 08:59 Dextrose/Sodium Chloride 1,000 ml @ 50 mls/hr Q20H IV 11/26/18 06:30 12/24/18 10:59 11/27/18 23:09 Insulin Aspart (NovoLOG) Q6H SUBQ 11/26/18 12:00 12/21/18 05:59 11/28/18 12:31 Pantoprazole (Protonix) 40 mg DAILY IV 11/26/18 09:00 12/20/18 10:29 11/28/18 08:36 Piperacillin Sod/ Tazobactam Sod 3.375 gm/Dextrose 110 ml @ 27.5 mls/hr Q8HR IVPB 11/26/18 14:00 11/30/18 13:59 11/28/18 13:35 Polyethylene Glycol (Miralax) 17 gm DAILY PRN ORAL Constipation 11/26/18 09:00 12/20/18 09:14 Jacki Trent M.D. Nov 28, 2018 14:26
--- NOTE | 2018-11-28 15:45 | NUR ---
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 PNA RBC 3.20, Hgb 9.6, Hct 29.7 CXR Impression: Improved but persistent and still considerable bilateral interstitial and airspace disease, since previous study of 11/24/2018 IS:PIPERACILLIN 110ml IVPB AMIKACIN 113.8 IV NOVOLOG SUBQ PROTONIX 40mg IV D5/NS x1L IV SDU STATUS
[2018-11-28] MEDS ORDERED: D5NS 1000ml IV ONE (15:50)
[2018-11-28] MEDS ORDERED: NS 275ml ONE (15:50)
[2018-11-28] MEDS ORDERED: Tubing IV Secondary IV ONE (15:50)
[2018-11-28 16:00] VITALS: BP 114/72
[2018-11-28] MEDS: D5NS 1,000 ML IV SCH (18:16)
--- NOTE | 2018-11-28 19:10 | NUR ---
HAND-OFF: Report given to Anyi RN. Patient VS stable at this time with no sign of acute distress.
[2018-11-28 20:00] VITALS: BP 138/82
--- NOTE | 2018-11-28 20:04 | NUR ---
NURSE NOTES: Received patient from Halina SHARIF. Patient is asleep. Receiving Oxygen via Trach Shiley 6 with settings AC 18 TV 450 FiO2 40% PEEP 0. Patient has a G Tube that is patent and patient is receiving Vital AF 1.2 at 50cc/hr, patient has no residuals and is tolerating feeding. Patient's IV site is Right Internal Jugular TLC that is patent and asymptomatic receiving D5NS at 50cc/hr. Patient has a condom catheter that is intact and draining. Bed is locked, placed in lowest positions, side rails up x3, call light within reach. Will continue to monitor.
[2018-11-28] MEDS: Dyna-Hex 2% Top Sol 2oz TOPIC SCH (20:38)
--- NOTE | 2018-11-28 23:20 | NUR ---
NURSE NOTES: Noted fever with BT; 102 F. by axillary. Tel monitor with with ST : 120's. Applied cooling measure. Notified to Dr. Flores and he assessed Pt and given new order received. Will continue to monitor any change of condition.
[2018-11-29] VITALS: BP 110/59
--- NOTE | 2018-11-29 00:30 | NUR ---
NURSE NOTES: Removed Rt IJ triple lumen line as ordered. Inserted site clean and no sign of infiltration noted. Remove 20cm TLC line. Line tip is intact and collected tip culture. Given pressure dressing on removed TLC area. Keep cooling measure. Will continue to monitor any change of condition. Will continue to care plan.
[2018-11-29 04:00] VITALS: BP 107/71
[2018-11-29 05:40] LABS: BASOPHILS % (AUTO) 0.6 % (0.0-2.0); EOSINOPHILS % (AUTO) 3.2 % (0.0-3.0); HEMATOCRIT 30.9 % (42.0-52.0); HEMOGLOBIN 10.4 G/DL (14.2-18.0); LYMPHOCYTES % (AUTO) 37.5 % (20.0-45.0); MEAN CORPUSCULAR VOLUME 94 FL (80-99); MONOCYTES % (AUTO) 9.3 % (1.0-10.0); NEUTROPHILS % (AUTO) 49.5 % (45.0-75.0); PLATELET COUNT 326 K/UL (150-450); RED BLOOD COUNT 3.29 M/UL (4.70-6.10); WHITE BLOOD COUNT 11.4 K/UL (4.8-10.8)
[2018-11-29] MEDS: NovoLOG Insulin Flexpen SUBQ SCH ×4 (05:44→23:16)
[2018-11-29] MEDS: Piperacillin/Tazobactam 3.375 GM in D5W 110 ML IVPB SCH ×2 (05:48→14:43)
[2018-11-29] MEDS: Lacri-Lube Opth Oint 3.5gm BOTH EYES SCH ×4 (05:49→23:15)
[2018-11-29 06:04] LABS: ALANINE AMINOTRANSFERASE 24 U/L (12-78); ALBUMIN 2.3 G/DL (3.4-5.0); ALBUMIN/GLOBULIN RATIO 0.4 (1.0-2.7); ALKALINE PHOSPHATASE 212 U/L (46-116); ANION GAP 9 mmol/L (5-15); ASPARTATE AMINO TRANSFERASE 23 U/L (15-37); BILIRUBIN,TOTAL 0.4 MG/DL (0.2-1.0); BLOOD UREA NITROGEN 13 mg/dL (7-18); CARBON DIOXIDE 28 MMOL/L (21-32); CHLORIDE 97 MMOL/L (98-107); CREATININE 0.9 MG/DL (0.55-1.30); POTASSIUM 4.4 MMOL/L (3.5-5.1); SODIUM 134 MMOL/L (136-145)
--- NOTE | 2018-11-29 07:44 | NUR ---
HAND-OFF: Report given to Vanesa SHARIF and Cali SHARIF. Patient shows no signs of distress.
[2018-11-29 08:00] VITALS: BP 119/74
--- NOTE | 2018-11-29 08:13 | NUR ---
NURSE NOTES: Received patient from Souleymane Smallwood. Patient in bed, resting comfortably with no signs of distress. Bed at its lowest position and the call light is in reach. Will continue to monitor.
[2018-11-29] MEDS: Pantoprazole Inj IV SCH (08:55)
--- NOTE | 2018-11-29 09:45 | Progress Note ---
DATE: 11/28/2018 SUBJECTIVE: The patient is awake, alert, afebrile, hemodynamically stable. stimulation. PHYSICAL EXAMINATION: VITAL SIGNS: His blood pressure is 110/78, pulse is 64, respirations were 18, and temperature 98. HEENT: Eyes were normal. ENT, mucous membranes were moist and intact. NECK: Supple. No JVD without lymph nodes. Tracheostomy site is clean. LUNGS: Clear without rhonchi, rales, or wheezing. Secretions are small, thin, and ramirez. HEART: Normal sounds with regular beats. There is no S3, S4, or pericardial rub. ABDOMEN: Soft. IMPRESSION: The patient spiked fever today. Blood cultures are taken. Today, antibiotics, tazobactam and piperacillin plus vancomycin, . Repeat laboratory tests will be done in the a.m. Matt Flores M.D. DR: NANI JOB#: [id number] CC:
[2018-11-29] MEDS: Acetaminophen 650mg/20.3ml GT PRN ×2 (10:14→21:31)
--- NOTE | 2018-11-29 10:56 | Pulmonolgy Critical Care Note ---
Critical Care - Asmt/Plan Problems: (1) Septic shock (2) Healthcare-associated pneumonia (3) Cerebral infarction (4) Feeding by G-tube (5) Acute metabolic encephalopathy (6) Anemia Respiratory: monitor respiratory rate, adjust FIO2, CXR Cardiac: continue pressors, continue to monitor HR/BP Renal: F/U I&O Infectious Disease: continue antibiotics Gastrointestinal: continue feedings/current rate Endocrine: monitor blood sugar Hematologic: monitor H/H Affect: PRN ativan Time Spent (Minutes): 40 Discussed with: nurses Critical Care - Objective Last 24 Hour Vital Signs Date Time Temp Pulse Resp B/P (MAP) Pulse Ox O2 Delivery O2 Flow Rate FiO2 11/29/18 08:00 Mechanical Ventilator 11/29/18 08:00 101.5 106 20 119/74 (89) 100 11/29/18 08:00 40 11/29/18 07:55 108 11/29/18 04:53 107 18 40 11/29/18 04:00 40 11/29/18 04:00 Mechanical Ventilator 11/29/18 04:00 99.7 107 18 107/71 (83) 100 11/29/18 04:00 111 11/29/18 03:30 118 30 40 11/29/18 01:30 120 31 40 11/29/18 00:00 Mechanical Ventilator 11/29/18 00:00 40 11/29/18 00:00 102.0 116 20 110/59 (76) 99 11/28/18 23:30 125 35 40 11/28/18 21:20 111 22 40 11/28/18 20:00 109 11/28/18 20:00 40 11/28/18 20:00 98.2 108 21 138/82 (100) 100 11/28/18 20:00 Mechanical Ventilator 11/28/18 19:30 109 22 40 11/28/18 16:53 108 18 40 11/28/18 16:00 101 11/28/18 16:00 40 11/28/18 16:00 98.4 101 18 114/72 (86) 99 11/28/18 16:00 Mechanical Ventilator 11/28/18 14:56 111 18 40 11/28/18 13:01 112 20 40 11/28/18 12:00 100 11/28/18 12:00 Mechanical Ventilator 11/28/18 12:00 40 11/28/18 12:00 98.2 101 18 109/68 (82) 99 11/28/18 11:02 109 18 40 Status: obtunded Condition: critical HEENT: atraumatic Heart: HR/BP stable Abdomen: active bowel sounds Decubiti: location, stage Micro: Microbiology Date/Time Source Procedure Growth Status 11/28/18 04:00 Nasal Nares Left Influenza Types A,B Antigen (FATMATA) - Final Complete Accucheck: 218 Critical Care - Subjective ROS Limited/Unobtainable: Yes Condition: critical EKG Rhythm: Sinus Rhythm FI02: 40 Vent Support Breath Rate: 18 Vent Support Mode: AC Vent Tidal Volume: 450 Sputum Amount: Small PEEP: 0.0 PIP: 17 Tube Feeding Amount: 50 I&O: Intake and Output 11/28/18 11/29/18 19:00 07:00 Intake Total 1523.80 ml 1360.0 ml Output Total 1350 ml 1200 ml Balance 173.80 ml 160.0 ml Intake Free Water 100 ml IV Total 823.80 ml 760.0 ml Tube Feeding 600 ml 600 ml Output Urine Total 1350 ml 1200 ml # Bowel Movements 3 Labs: Laboratory Tests Test 11/29/18 04:20 White Blood Count 11.4 K/UL (4.8-10.8) H Red Blood Count 3.29 M/UL (4.70-6.10) L Hemoglobin 10.4 G/DL (14.2-18.0) L Hematocrit 30.9 % (42.0-52.0) L Mean Corpuscular Volume 94 FL (80-99) Mean Corpuscular Hemoglobin 31.6 PG (27.0-31.0) H Mean Corpuscular Hemoglobin Concent 33.6 G/DL (32.0-36.0) Red Cell Distribution Width 17.0 % (11.6-14.8) H Platelet Count 326 K/UL (150-450) Mean Platelet Volume 6.1 FL (6.5-10.1) L Neutrophils (%) (Auto) 49.5 % (45.0-75.0) Lymphocytes (%) (Auto) 37.5 % (20.0-45.0) Monocytes (%) (Auto) 9.3 % (1.0-10.0) Eosinophils (%) (Auto) 3.2 % (0.0-3.0) H Basophils (%) (Auto) 0.6 % (0.0-2.0) Sodium Level 134 MMOL/L (136-145) L Potassium Level 4.4 MMOL/L (3.5-5.1) Chloride Level 97 MMOL/L (98-107) L Carbon Dioxide Level 28 MMOL/L (21-32) Anion Gap 9 mmol/L (5-15) Blood Urea Nitrogen 13 mg/dL (7-18) Creatinine 0.9 MG/DL (0.55-1.30) Estimat Glomerular Filtration Rate > 60 mL/min (>60) Glucose Level 204 MG/DL (74-106) H Calcium Level 10.0 MG/DL (8.5-10.1) Total Bilirubin 0.4 MG/DL (0.2-1.0) Aspartate Amino Transf (AST/SGOT) 23 U/L (15-37) Alanine Aminotransferase (ALT/SGPT) 24 U/L (12-78) Alkaline Phosphatase 212 U/L (46-116) H Pro-B-Type Natriuretic Peptide 769 pg/mL (0-125) H Total Protein 8.2 G/DL (6.4-8.2) Albumin 2.3 G/DL (3.4-5.0) L Globulin 5.9 g/dL Albumin/Globulin Ratio 0.4 (1.0-2.7) L Law Carter MD Nov 29, 2018 10:56
--- NOTE | 2018-11-29 11:35 | NUR ---
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 PNE VS: BP 107/71, P 118, T 101.5, RR 30, SpO2 100 on VENT AC 18, TV 450, FiO2 40 WBC 11.4, RBC 3.29, Hgb 10.4, Hct 30.9, Na 134 IS:PIPERACILLIN 110 ml IVPB AMIKACIN SULFATE 113.8ml IV NOVOLOG SUBQ PROTONIX 40mg IV D5/NS x1L IV SDU STATUS
[2018-11-29 12:00] VITALS: BP 117/67
--- NOTE | 2018-11-29 13:57 | NUR ---
*-* INSURANCE *-* ALL CLINICAL HAVE BEEN FAXED TO: [facility] PLEASE FAX THE REVIEW/CLINICALS P- [phone]...OPT-1- OPT-3 F- [phone]
--- NOTE | 2018-11-29 15:55 | Infectious Diseases Prog Note ---
Assessment/Plan Assessment/Plan Assessment: Septic shock, SP- 2ry to PNA -11/28 cXR: Improved but persistent and still considerable bilateral interstitial and airspace disease, since previous study of 11/24/2018 Improved left, persistent right pleural effusions -11/24 CXR: Extensive consolidation bilaterally unchanged. There is a left pleural effusion noted. 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 -11/19 Bcx neg -influenza sc neg -sp cx p Fever, ongoing Leukocytosis, recurrent- r/o bacteremia, UTI Lactic acidosis, SP Acute on chronic respiratory failure Mild LFTs elevation, SP CVA, Anoxic encephalopathy dysphagia s/p GT COPD Dm2 HTN GERD HLD chronic respiratory failure trach dependant SNF resident Plan: -D/c empiric Zosyn 07/09 -Continue IV Amikacin 06/08 -Add Meropenem and IV Vancomycin given increased fever and wbc. -11/19 SP Levaquin x1 -Bcx x2, u /a w/ reflex -f.u cx -Monitor CBC/CMP, temperatures -f/u sp cx, legionella ag urine -PEG/trach care -aspiration precautions -wound care per hospital protocol Will continue to follow along with you. Subjective Allergies: Coded Allergies: No Known Allergies (Unverified , 10/11/18) Subjective Tm 102 wbc increased sp cx p Objective Vital Signs Last 24 Hour Vital Signs Date Time Temp Pulse Resp B/P (MAP) Pulse Ox O2 Delivery O2 Flow Rate FiO2 11/29/18 12:00 Mechanical Ventilator 11/29/18 12:00 40 11/29/18 12:00 100.4 108 20 117/67 (84) 100 11/29/18 11:35 104 11/29/18 11:00 101.0 11/29/18 08:00 Mechanical Ventilator 11/29/18 08:00 101.5 106 20 119/74 (89) 100 11/29/18 08:00 40 11/29/18 07:55 108 11/29/18 04:53 107 18 40 11/29/18 04:00 40 11/29/18 04:00 Mechanical Ventilator 11/29/18 04:00 99.7 107 18 107/71 (83) 100 11/29/18 04:00 111 11/29/18 03:30 118 30 40 11/29/18 01:30 120 31 40 11/29/18 00:00 Mechanical Ventilator 11/29/18 00:00 40 11/29/18 00:00 102.0 116 20 110/59 (76) 99 11/28/18 23:30 125 35 40 11/28/18 21:20 111 22 40 11/28/18 20:00 109 11/28/18 20:00 40 11/28/18 20:00 98.2 108 21 138/82 (100) 100 11/28/18 20:00 Mechanical Ventilator 11/28/18 19:30 109 22 40 11/28/18 16:53 108 18 40 11/28/18 16:00 101 11/28/18 16:00 40 11/28/18 16:00 98.4 101 18 114/72 (86) 99 11/28/18 16:00 Mechanical Ventilator Height (Feet): 5 Height (Inches): 8.00 Weight (Pounds): 140 Objective GENERAL: Trached on Vent satting swell on 40% O2 LUNGS: Bilateral coarse breath sounds . HEART: RRR Normal S1, S2. ABDOMEN: Soft. G-tube intact. EXTREMITIES: There is trace edema. Microbiology Date/Time Source Procedure Growth Status 11/28/18 04:00 Nasal Nares Left Influenza Types A,B Antigen (FATMATA) - Final Complete 11/28/18 00:30 Sputum Induced Gram Stain - Final Resulted 11/28/18 00:30 Sputum Induced Sputum Culture Pending Resulted Laboratory Tests Test 11/29/18 04:20 White Blood Count 11.4 K/UL (4.8-10.8) H Red Blood Count 3.29 M/UL (4.70-6.10) L Hemoglobin 10.4 G/DL (14.2-18.0) L Hematocrit 30.9 % (42.0-52.0) L Mean Corpuscular Volume 94 FL (80-99) Mean Corpuscular Hemoglobin 31.6 PG (27.0-31.0) H Mean Corpuscular Hemoglobin Concent 33.6 G/DL (32.0-36.0) Red Cell Distribution Width 17.0 % (11.6-14.8) H Platelet Count 326 K/UL (150-450) Mean Platelet Volume 6.1 FL (6.5-10.1) L Neutrophils (%) (Auto) 49.5 % (45.0-75.0) Lymphocytes (%) (Auto) 37.5 % (20.0-45.0) Monocytes (%) (Auto) 9.3 % (1.0-10.0) Eosinophils (%) (Auto) 3.2 % (0.0-3.0) H Basophils (%) (Auto) 0.6 % (0.0-2.0) Sodium Level 134 MMOL/L (136-145) L Potassium Level 4.4 MMOL/L (3.5-5.1) Chloride Level 97 MMOL/L (98-107) L Carbon Dioxide Level 28 MMOL/L (21-32) Anion Gap 9 mmol/L (5-15) Blood Urea Nitrogen 13 mg/dL (7-18) Creatinine 0.9 MG/DL (0.55-1.30) Estimat Glomerular Filtration Rate > 60 mL/min (>60) Glucose Level 204 MG/DL (74-106) H Calcium Level 10.0 MG/DL (8.5-10.1) Total Bilirubin 0.4 MG/DL (0.2-1.0) Aspartate Amino Transf (AST/SGOT) 23 U/L (15-37) Alanine Aminotransferase (ALT/SGPT) 24 U/L (12-78) Alkaline Phosphatase 212 U/L (46-116) H Pro-B-Type Natriuretic Peptide 769 pg/mL (0-125) H Total Protein 8.2 G/DL (6.4-8.2) Albumin 2.3 G/DL (3.4-5.0) L Globulin 5.9 g/dL Albumin/Globulin Ratio 0.4 (1.0-2.7) L Current Medications Medications (Trade) Dose Ordered Sig/Last Route PRN Reason Start Time Stop Time Status Last Admin Dose Admin Acetaminophen (Tylenol) 650 mg Q4H PRN GT Mild Pain/Temp > 100.5 11/26/18 09:30 12/20/18 21:29 11/29/18 10:14 Amikacin Protocol (Amikacin pharmacy to dose) 1 ea DAILY PRN MISC Per rx protocol 11/26/18 09:00 12/20/18 08:59 Artificial Tears (Lacri-Lube) 1 applic Q6HR BOTH EYES 11/26/18 12:00 12/20/18 11:59 11/29/18 12:49 Dextrose (Dextrose 50%) 25 ml Q30M PRN IV Hypoglycemia 11/26/18 06:30 12/20/18 08:59 Dextrose/Sodium Chloride 1,000 ml @ 50 mls/hr Q20H IV 11/26/18 06:30 12/24/18 10:59 11/28/18 18:16 Insulin Aspart (NovoLOG) Q6H SUBQ 11/26/18 12:00 12/21/18 05:59 11/29/18 12:52 Lansoprazole (Prevacid) 30 mg DAILY GT 11/30/18 09:00 12/30/18 08:59 Piperacillin Sod/ Tazobactam Sod 3.375 gm/Dextrose 110 ml @ 27.5 mls/hr Q8HR IVPB 11/26/18 14:00 11/30/18 13:59 11/29/18 14:43 Polyethylene Glycol (Miralax) 17 gm DAILY PRN ORAL Constipation 11/26/18 09:00 12/20/18 09:14 Jacki Trent M.D. Nov 29, 2018 15:55
[2018-11-29 16:00] VITALS: BP 131/73
[2018-11-29] MEDS ORDERED: Amikacin 950 MG in NS 110 ML IV ONE (17:00)
[2018-11-29] MEDS: Meropenem 1 GM in NS 55 ML IVPB SCH (17:18)
[2018-11-29] MEDS: Azithromycin 250mg tab ORAL SCH (17:26)
[2018-11-29] MEDS: D5NS 1,000 ML IV SCH (18:00)
[2018-11-29 18:31] LABS: BILIRUBIN, URINE NEGATIVE (NEGATIVE); COLOR,URINE PALE YELLOW; GLUCOSE, URINE (UA) NEGATIVE (NEGATIVE); KETONES,URINE NEGATIVE (NEGATIVE); LEUKOCYTE ESTERASE ,URINE NEGATIVE (NEGATIVE); NITRITE,URINE NEGATIVE (NEGATIVE); PH,URINE 8 (4.5-8.0); PROTEIN,URINE NEGATIVE (NEGATIVE); UROBILINOGEN,URINE NORMAL MG/DL (0.0-1.0)
[2018-11-29 18:32] LABS: APPEARANCE,URINE CLEAR
--- NOTE | 2018-11-29 18:54 | General Progress Note ---
Assessment/Plan Assessment/Plan Assessment and Recs: # Thrombocytopenia - potential causes multifactorial, at this time, likely due to infection, Peripheral smear ordered to evaluate for blasts /schistocytes does show some mild bandemia and immature cells --> flow cytometry reviewed and is negative for abnormal clonal population --> Hep panel and HIV negative from prior admission --> US abd to evaluate for cirrhosis and hsm ordered is negative for ascites --> abx and other meds have been reviewed --> plt 40k-->50k-->96k-_>240k --> Transfuse if Plt < 20k and fever, or if Plt < 10k without fever # Anemia of chronic disease -- panel has been ordered and reviewed, ferritin is >1000, tibc is low --> maintain hgb above 7 --> panel reviewed, no hemolysis, peripheral smear is wnl --> monitor for bleeding --> gi recs appreciated --> would hold off any iron at this time --> cea is 7.8 --> hgb trend 8.3-->8.8-->8.7-->10.4 # Coagulopathy - potentailly related to decreased po intake --> consider vit K prior to any proecedure --> ffp as well if patient bleeds # Gastrostomy tube dependent --> continue tube feeds # Rectal tube in place from before --> wound care # Clostridium difficile diarrhea --> s/p prior rx # Dehydration --> s/p ivf have been given # Iron deficiency --> iron iv has been given # Tracheostomy ++/vent --> per pulm recs # Encephalopathy The timing of this note does not necessarily reflect the time of the patient was seen. Greatly appreciate consultation! Subjective Respiratory: Denies: no symptoms, cough, orthopnea, shortness of breath, SOB with excertion, SOB at rest, sputum, stridor, wheezing, other Gastrointestinal/Abdominal: Denies: no symptoms, abdomen distended, abdominal pain, black stools, tarry stools, blood in stool, constipated, diarrhea, difficulty swallowing, nausea, poor appetite, poor fluid intake, rectal bleeding , vomiting, other Genitourinary: Denies: no symptoms, burning, discharge, frequency, flank pain, hematuria, incontinence, pain, urgency, other Neurologic/Psychiatric: Denies: no symptoms, anxiety, depressed, emotional problems, headache, numbness, paresthesia, pre-existing deficit, seizure, tingling, tremors, weakness, other Endocrine: Denies: no symptoms, excessive sweating, flushing, intolerance to cold, intolerance to heat, increased hunger, increased thirst, increased urine, unexplained weight gain, unexplained weight loss, other Hematologic/Lymphatic: Denies: no symptoms, anemia, easy bleeding, easy bruising, other Allergies: Coded Allergies: No Known Allergies (Unverified , 10/11/18) Subjective 11/22: plts are lower today as is cbc/hgb, trending closely, low threshold to transfusion 11/23: k is low, no fevers, no chills, cbc reviewed, plt remains low 11/24: no events, cbc reviewed, trach to vent, repositioned today 11/25: on abx broad spectrum, seen by pulm, repositioned during exam 11/27: no fevers or chills, on abx, on a vent, gtube in place 11/28: trach to vent, no complaints, no f/c, plt better 11/29: remains with fevers, no chills noted, no night sweats, no complaints reported Objective Last 24 Hour Vital Signs Date Time Temp Pulse Resp B/P (MAP) Pulse Ox O2 Delivery O2 Flow Rate FiO2 11/29/18 16:56 108 11/29/18 16:00 40 11/29/18 16:00 Mechanical Ventilator 11/29/18 16:00 101.7 107 18 131/73 (92) 100 11/29/18 12:00 Mechanical Ventilator 11/29/18 12:00 40 11/29/18 12:00 100.4 108 20 117/67 (84) 100 11/29/18 11:35 104 11/29/18 11:00 101.0 11/29/18 08:00 Mechanical Ventilator 11/29/18 08:00 101.5 106 20 119/74 (89) 100 11/29/18 08:00 40 11/29/18 07:55 108 11/29/18 04:53 107 18 40 11/29/18 04:00 40 11/29/18 04:00 Mechanical Ventilator 11/29/18 04:00 99.7 107 18 107/71 (83) 100 11/29/18 04:00 111 11/29/18 03:30 118 30 40 11/29/18 01:30 120 31 40 11/29/18 00:00 Mechanical Ventilator 11/29/18 00:00 40 11/29/18 00:00 102.0 116 20 110/59 (76) 99 11/28/18 23:30 125 35 40 11/28/18 21:20 111 22 40 11/28/18 20:00 109 11/28/18 20:00 40 11/28/18 20:00 98.2 108 21 138/82 (100) 100 11/28/18 20:00 Mechanical Ventilator 11/28/18 19:30 109 22 40 Intake and Output 11/28/18 11/29/18 19:00 07:00 Intake Total 1523.80 ml 1360.0 ml Output Total 1350 ml 1200 ml Balance 173.80 ml 160.0 ml Intake Free Water 100 ml IV Total 823.80 ml 760.0 ml Tube Feeding 600 ml 600 ml Output Urine Total 1350 ml 1200 ml # Bowel Movements 3 Laboratory Tests 11/29/18 04:20: White Blood Count 11.4H, Red Blood Count 3.29L, Hemoglobin 10.4L, Hematocrit 30.9L, Mean Corpuscular Volume 94, Mean Corpuscular Hemoglobin 31.6H, Mean Corpuscular Hemoglobin Concent 33.6, Red Cell Distribution Width 17.0H, Platelet Count 326, Mean Platelet Volume 6.1L, Neutrophils (%) (Auto) 49.5, Lymphocytes (%) (Auto) 37.5, Monocytes (%) (Auto) 9.3, Eosinophils (%) (Auto) 3.2H, Basophils (%) (Auto) 0.6, Sodium Level 134L, Potassium Level 4.4, Chloride Level 97L, Carbon Dioxide Level 28, Anion Gap 9, Blood Urea Nitrogen 13 , Creatinine 0.9, Estimat Glomerular Filtration Rate > 60, Glucose Level 204H, Calcium Level 10.0, Total Bilirubin 0.4, Aspartate Amino Transf (AST/SGOT) 23, Alanine Aminotransferase (ALT/SGPT) 24, Alkaline Phosphatase 212H, Pro-B-Type Natriuretic Peptide 769H, Total Protein 8.2, Albumin 2.3L, Globulin 5.9, Albumin /Globulin Ratio 0.4L 11/29/18 17:55: Urine Color Pale yellow, Urine Appearance Clear, Urine pH 8, Urine Specific [place] 1.010, Urine Protein Negative, Urine Glucose (UA) Negative, Urine Ketones Negative, Urine Blood Negative, Urine Nitrite Negative, Urine Bilirubin Negative, Urine Urobilinogen Normal, Urine Leukocyte Esterase Negative Height (Feet): 5 Height (Inches): 8.00 Weight (Pounds): 140 General Appearance: no apparent distress EENT: TMs normal Neck: normal alignment Cardiovascular: regular rhythm Respiratory/Chest: normal breath sounds Abdomen: no mass Extremities: normal inspection Edema: no edema noted Leg (L), no edema noted Leg (R) Neurologic: alert Objective Vitals: have been reviewed Gen: no apparent distress Head: normocephalic EENT: PERRL/EOMI Neck: supple, tracheotomy +++ Respiratory: normal breath sounds, no respiratory distress ++ trach Cardiovascular: normal rate Gastrointestinal: normal inspection, non tender, soft, normal bs, gt+++ Rectal: deferred Genitourinary: deferred Musculoskeletal: normal inspection, back normal Skin: normal color, no rash, warm/dry Lymphatic: normal inspection, no adenopathy Antonio Higgins MD Nov 29, 2018 18:54
--- NOTE | 2018-11-29 19:37 | NUR ---
HAND-OFF: Report given to Luzmaria Garcia
--- NOTE | 2018-11-29 19:38 | NUR ---
NURSE NOTES: Received report from Vanesa RN/ Cali RN, pt. received in bed obtunded, pt. opens eyes spontaneously- non-verbal, no signs or symptoms of acute cardiac or respiratory distress noted, pt. is on lunchroom monitor, bed in lowest position and call light within easy reach, bed alarm on, side rails up x's3 and safety brakes engaged, pt. appears to be tolerating current vent settings well- AC 18, TV 450, Fio2 @40%, G tube Vital AF 1.2 running 50cc/hr- no residual noted, Condom cath intact and draining to gravity, dressings dry and intact, RFA 20G running D5NS at 50cc/hr- IV intact and patent, LFA 20G IV intact and patent- TKO, safety measures continued, will continue with plan of care.
[2018-11-29] MEDS: Vancomycin 1gm in D5W 275ml IVPB SCH (19:59)
[2018-11-29 20:00] VITALS: BP 128/67
[2018-11-30] VITALS: BP 105/63
--- NOTE | 2018-11-30 00:30 | NUR ---
NURSE NOTES: patients temp now 101.0- trended down a little with Tylenol- and cooling measures- Will continue with cooling measures and administer Tylenol when due. Pt. remains stable and no signs of distress noted. Will continue with plan of care and continue to monitor temperature.
[2018-11-30] MEDS: Meropenem 1 GM in NS 55 ML IVPB SCH ×3 (01:39→18:15)
[2018-11-30] MEDS: Acetaminophen 650mg/20.3ml GT PRN ×3 (01:39→13:34)
--- NOTE | 2018-11-30 03:30 | Progress Note ---
DATE: 11/29/2018 SUBJECTIVE: The patient is off pressors. Blood pressure parameters remain stable. Still with fever spikes up to 102. Monitor, sinus tachycardia. OBJECTIVE: LUNGS: Coarse breath sounds and rhonchi. Trach site with thick secretions. HEART: Regular rhythm. Rapid rate. Normal S1, S2. ABDOMEN: Soft. G-tube intact. EXTREMITIES: Trace dependent edema. LABORATORY DATA: White count 11 and hemoglobin 10. Potassium 4.4. Natriuretic peptide 769. Albumin 2.3. IMPRESSION: 1. Sepsis with shock, recovering. 2. Healthcare-acquired pneumonia. 3. Respiratory failure with tracheostomy. 4. Acute on chronic diastolic congestive heart failure, improved. 5. Cerebrovascular disease with prior cerebrovascular accident and chronic encephalopathy. 6. Severe protein-calorie malnutrition. PLAN OF CARE: 1. Observe for new infection source. 2. Continue antimicrobials, ventilator support, and respiratory hygiene. 3. No diuresis at this time. 4. Maintenance hydration with nutrition by feeding tube. Jorge A Morales M.D. DR: SABRA JOB#: [id number] CC:
[2018-11-30 04:00] VITALS: BP 112/66
[2018-11-30] MEDS: Lacri-Lube Opth Oint 3.5gm BOTH EYES SCH ×4 (05:24→23:31)
[2018-11-30] MEDS: NovoLOG Insulin Flexpen SUBQ SCH ×4 (05:26→23:32)
[2018-11-30 05:45] LABS: EOSINOPHILS % (AUTO) 1.4 % (0.0-3.0); HEMATOCRIT 32.1 % (42.0-52.0); HEMOGLOBIN 10.6 G/DL (14.2-18.0); LYMPHOCYTES % (AUTO) 33.6 % (20.0-45.0); MEAN CORPUSCULAR VOLUME 92 FL (80-99); MONOCYTES % (AUTO) 13.4 % (1.0-10.0); NEUTROPHILS % (AUTO) 50.7 % (45.0-75.0); PLATELET COUNT 376 K/UL (150-450); RED BLOOD COUNT 3.47 M/UL (4.70-6.10); RED CELL DISTRIBUTION WIDTH 16.6 % (11.6-14.8); WHITE BLOOD COUNT 16.2 K/UL (4.8-10.8)
[2018-11-30 06:14] LABS: ALANINE AMINOTRANSFERASE 28 U/L (12-78); ALBUMIN 2.5 G/DL (3.4-5.0); ALBUMIN/GLOBULIN RATIO 0.4 (1.0-2.7); ALKALINE PHOSPHATASE 191 U/L (46-116); ANION GAP 10 mmol/L (5-15); ASPARTATE AMINO TRANSFERASE 77 U/L (15-37); BILIRUBIN,TOTAL 0.6 MG/DL (0.2-1.0); BLOOD UREA NITROGEN 15 mg/dL (7-18); CALCIUM 9.8 MG/DL (8.5-10.1); CARBON DIOXIDE 26 MMOL/L (21-32); CHLORIDE 90 MMOL/L (98-107); CREATININE 0.9 MG/DL (0.55-1.30); PHOSPHORUS 3.6 MG/DL (2.5-4.9); POTASSIUM 5.9 MMOL/L (3.5-5.1); SODIUM 126 MMOL/L (136-145)
--- NOTE | 2018-11-30 06:21 | NUR ---
NURSE NOTES: Temp trending down- cooling measures continued, and fan in room- will continue to monitor patients temperature and with plan of care.
--- NOTE | 2018-11-30 07:22 | NUR ---
RESPIRATORY NOTE: Patient received mechanically ventilated on PB 840 with current ordered vent settings. Patient has trach size 6.0 Shiley cuffed that is secured with a trach tie and guard. There were bilateral coarse breath sounds noted upon auscultation and moderate amount of thin yellow/white secretions were suctioned without incident. There is an ambu bag available at the bedside and the vent is connected to a red outlet. Vent alarms are functional and audible. Will continue to monitor.
--- NOTE | 2018-11-30 07:34 | NUR ---
HAND-OFF: Report given to Halina Sullivan RN, pt. remains stable and no signs of distress noted.
--- NOTE | 2018-11-30 07:36 | NUR ---
NURSE NOTES: left message for DR. Flores, regarding abnormal labs- NA 126, K 5.9- waiting for call back from doctor- hand off nurse aware to follow up with doctor.
--- NOTE | 2018-11-30 07:37 | NUR ---
NURSE NOTES: Received patient from KOLE Dutta. Patient sleeping at this time. Patient has a temperature of 100.4 at this time. Will administer tylenol as soon as possible. Patient has a K of 5.9 this morning. KOLE Dutta will notify Dr Flores. Patient on trach to ventilator setting of AC 18, TV 450, FiO2 40%, and PEEP 0. Patient tolerating setting with oxygen saturation of 99% at this time. Patient has G tube that is patent and asymptomatic at this time and running Vital AF at 50mL/hr at this time. Patient has a condom catheter that is patent and asymptomatic at this time. Patient has a right forearm 20G PIV and a left forearm 20G PIV that is running D5NS at 50mL/hr at this time. patient bed in low position with bed alarm on and call light in reach at this time. Patient has a white blood cell count of 16.2 that is elevated from yesterday. Luzmaria left message for Dr Leonard. Awaiting call back at this time.
--- NOTE | 2018-11-30 07:41 | NUR ---
NURSE NOTES: Left msg for DR. Trent regarding pts. WBC's trending up- awaiting for call back from doctor. handoff nurse aware to f/u with doctor.
[2018-11-30 08:00] VITALS: BP 120/73
--- NOTE | 2018-11-30 08:18 | NUR ---
NURSE NOTES:WOUND CARE FOLLOW-UP NOTES:Less erythema to sacrum noted .Skin is pink with scaatered shearing noted with loose dry skin noted. Both heels are pink and easily blanchable . No new skin concerns noted .Pt has an AP/Supriya mattress overlay. Both heels are off-loaded with pillow and pt positioned on R side with pillow.
[2018-11-30] MEDS: Vancomycin 1gm in D5W 275ml IVPB SCH (08:45)
[2018-11-30] MEDS: Azithromycin 250mg tab ORAL SCH (08:46)
[2018-11-30] MEDS ORDERED: Sodium Polystyrene Sulfonate 15gm Powder ORAL SCH (09:00)
--- NOTE | 2018-11-30 09:15 | NUR ---
NURSE NOTES: Patient temp now 103. Patient BP 146/74, blood sugar 273, and HR 123. Patient given tylenol 30 min ago. Will administer another dose when possible. Cooling measures placed on patient. Fan blowing on patient. Will call for cooling blanket. Patient's hands and feet are cold with pulses present. Abdomen hot to touch.
--- NOTE | 2018-11-30 09:23 | Infectious Diseases Prog Note ---
Assessment/Plan Assessment/Plan Septic shock, SP- 2ry to PNA -11/28 cXR: Improved but persistent and still considerable bilateral interstitial and airspace disease, since previous study of 11/24/2018 Improved left, persistent right pleural effusions -11/24 CXR: Extensive consolidation bilaterally unchanged. There is a left pleural effusion noted. 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 -11/19 Bcx neg -influenza sc neg -sp cx p Fever, ongoing Leukocytosis, recurrent- r/o bacteremia, UTI Lactic acidosis, SP Acute on chronic respiratory failure Mild LFTs elevation, SP CVA, Anoxic encephalopathy dysphagia s/p GT COPD Dm2 HTN GERD HLD chronic respiratory failure trach dependant SNF resident Plan: -Continue Meropenem #2 and Vancomycin #2 - 11/29/18 SP Zosyn #11 and Amikacin #11 -11/19 SP Levaquin x1 -Bcx x2, u /a w/ reflex -f.u sputum cx -f/u sp cx, legionella ag urine -Monitor CBC/CMP, temperatures -PEG/trach care -aspiration precautions -wound care per hospital protocol Will continue to follow along with you. Subjective Allergies: Coded Allergies: No Known Allergies (Unverified , 10/11/18) Subjective Fever to 102 last night On Vent satting swell on 40% O2 WBCs increasing Objective Vital Signs Last 24 Hour Vital Signs Date Time Temp Pulse Resp B/P (MAP) Pulse Ox O2 Delivery O2 Flow Rate FiO2 11/30/18 07:19 118 24 40 11/30/18 06:21 99.5 11/30/18 05:03 129 39 40 11/30/18 04:00 121 11/30/18 04:00 Mechanical Ventilator 11/30/18 04:00 100.0 117 24 112/66 (81) 100 11/30/18 04:00 40 11/30/18 03:16 118 18 40 11/30/18 02:09 99.2 11/30/18 01:34 120 23 40 11/30/18 00:00 101.0 112 18 105/63 (77) 100 11/30/18 00:00 Mechanical Ventilator 11/30/18 00:00 40 11/30/18 00:00 113 11/29/18 23:58 113 18 40 11/29/18 23:57 113 18 Mechanical Ventilator 40 11/29/18 20:45 110 19 40 11/29/18 20:17 118 31 40 11/29/18 20:00 Mechanical Ventilator 11/29/18 20:00 40 11/29/18 20:00 101.7 110 18 128/67 (87) 100 11/29/18 20:00 110 11/29/18 17:30 100.0 11/29/18 16:56 108 11/29/18 16:00 40 11/29/18 16:00 Mechanical Ventilator 11/29/18 16:00 101.7 107 18 131/73 (92) 100 11/29/18 12:00 Mechanical Ventilator 11/29/18 12:00 40 11/29/18 12:00 100.4 108 20 117/67 (84) 100 11/29/18 11:35 104 Height (Feet): 5 Height (Inches): 8.00 Weight (Pounds): 140 Objective GENERAL: Trached on Vent satting swell on 40% O2 LUNGS: Bilateral coarse breath sounds . HEART: RRR Normal S1, S2. ABDOMEN: Soft. G-tube intact. EXTREMITIES: There is trace edema. Microbiology Date/Time Source Procedure Growth Status 11/28/18 23:35 Blood Blood Culture - Preliminary NO GROWTH AFTER 24 HOURS Resulted 11/28/18 23:30 Blood Blood Culture - Preliminary NO GROWTH AFTER 24 HOURS Resulted 11/28/18 04:00 Nasal Nares Left Influenza Types A,B Antigen (FATMATA) - Final Complete 11/28/18 00:30 Sputum Induced Gram Stain - Final Resulted 11/28/18 00:30 Sputum Culture - Preliminary Gram Negative Bacillus 1 Gram Negative Bacillus 2 Resulted Laboratory Tests Test 11/29/18 17:55 11/30/18 03:25 Urine Color Pale yellow Urine Appearance Clear Urine pH 8 (4.5-8.0) Urine Specific [place] 1.010 (1.005-1.035) Urine Protein Negative (NEGATIVE) Urine Glucose (UA) Negative (NEGATIVE) Urine Ketones Negative (NEGATIVE) Urine Blood Negative (NEGATIVE) Urine Nitrite Negative (NEGATIVE) Urine Bilirubin Negative (NEGATIVE) Urine Urobilinogen Normal MG/DL (0.0-1.0) Urine Leukocyte Esterase Negative (NEGATIVE) White Blood Count 16.2 K/UL (4.8-10.8) H Red Blood Count 3.47 M/UL (4.70-6.10) L Hemoglobin 10.6 G/DL (14.2-18.0) L Hematocrit 32.1 % (42.0-52.0) L Mean Corpuscular Volume 92 FL (80-99) Mean Corpuscular Hemoglobin 30.5 PG (27.0-31.0) Mean Corpuscular Hemoglobin Concent 33.0 G/DL (32.0-36.0) Red Cell Distribution Width 16.6 % (11.6-14.8) H Platelet Count 376 K/UL (150-450) Mean Platelet Volume 5.3 FL (6.5-10.1) L Neutrophils (%) (Auto) 50.7 % (45.0-75.0) Lymphocytes (%) (Auto) 33.6 % (20.0-45.0) Monocytes (%) (Auto) 13.4 % (1.0-10.0) H Eosinophils (%) (Auto) 1.4 % (0.0-3.0) Basophils (%) (Auto) 1.0 % (0.0-2.0) Sodium Level 126 MMOL/L (136-145) L Potassium Level 5.9 MMOL/L (3.5-5.1) H Chloride Level 90 MMOL/L (98-107) L Carbon Dioxide Level 26 MMOL/L (21-32) Anion Gap 10 mmol/L (5-15) Blood Urea Nitrogen 15 mg/dL (7-18) Creatinine 0.9 MG/DL (0.55-1.30) Estimat Glomerular Filtration Rate > 60 mL/min (>60) Glucose Level 222 MG/DL (74-106) H Calcium Level 9.8 MG/DL (8.5-10.1) Phosphorus Level 3.6 MG/DL (2.5-4.9) Magnesium Level 2.2 MG/DL (1.8-2.4) Total Bilirubin 0.6 MG/DL (0.2-1.0) Aspartate Amino Transf (AST/SGOT) 77 U/L (15-37) H Alanine Aminotransferase (ALT/SGPT) 28 U/L (12-78) Alkaline Phosphatase 191 U/L (46-116) H Total Protein 9.0 G/DL (6.4-8.2) H Albumin 2.5 G/DL (3.4-5.0) L Globulin 6.5 g/dL Albumin/Globulin Ratio 0.4 (1.0-2.7) L Current Medications Medications (Trade) Dose Ordered Sig/Last Route PRN Reason Start Time Stop Time Status Last Admin Dose Admin Acetaminophen (Tylenol) 650 mg Q4H PRN GT Mild Pain/Temp > 100.5 11/26/18 09:30 12/20/18 21:29 11/30/18 08:45 Artificial Tears (Lacri-Lube) 1 applic Q6HR BOTH EYES 11/26/18 12:00 12/20/18 11:59 11/30/18 05:24 Azithromycin (Zithromax) 500 mg DAILY ORAL 11/29/18 16:00 12/06/18 15:59 11/30/18 08:46 Dextrose (Dextrose 50%) 25 ml Q30M PRN IV Hypoglycemia 11/26/18 06:30 12/20/18 08:59 Insulin Aspart (NovoLOG) Q6H SUBQ 11/26/18 12:00 12/21/18 05:59 11/30/18 05:26 Lansoprazole (Prevacid) 30 mg DAILY GT 11/30/18 09:00 12/30/18 08:59 11/30/18 08:46 Meropenem 1 gm/ Sodium Chloride 55 ml @ 110 mls/hr Q8HR@0200,1000,1800 IVPB 11/29/18 18:00 12/04/18 17:59 11/30/18 01:39 Polyethylene Glycol (Miralax) 17 gm DAILY PRN ORAL Constipation 11/26/18 09:00 12/20/18 09:14 Sodium Polystyrene Sulfonate (Kayexalate) 60 gm ONCE ORAL 11/30/18 09:00 11/30/18 11:00 11/30/18 09:05 Sodium Chloride 1,000 ml @ 100 mls/hr Q10H IV 11/30/18 08:00 12/30/18 07:59 11/30/18 08:45 Vancomycin HCl (Vanco rx to dose) 1 ea DAILY PRN MISC Per rx protocol 11/29/18 15:45 12/29/18 15:44 Vancomycin HCl 1 gm/Dextrose 275 ml @ 183.708 mls/hr Q12HR@0800,1999 IVPB 11/29/18 20:00 12/04/18 19:59 11/30/18 08:45 Jorge A Aguiar MD Nov 30, 2018 09:23
--- NOTE | 2018-11-30 10:00 | NUR ---
NURSE NOTES: Cooling blanket applied.
--- NOTE | 2018-11-30 10:38 | NUR ---
NURSE NOTES: Received notification from Lianne from laboratory. Blood culture positive for gram positive cocci in one bottle. Will notify Dr Aguiar when he arrives on the floor.
--- NOTE | 2018-11-30 10:55 | NUR ---
NURSE NOTES: Patient temp 101.4 at this time.
[2018-11-30 12:00] VITALS: BP 126/72
--- NOTE | 2018-11-30 12:15 | Progress Note ---
DATE: 11/29/2018 SUBJECTIVE: The patient is hemodynamically stable. PHYSICAL EXAMINATION: VITAL SIGNS: Blood pressure is 128/67, pulse is 110, respirations 19, and temperature is 101.7. HEENT: Eyes were normal. ENT, mucous membranes are moist and intact. NECK: Supple with no JVD without lymph nodes. Tracheostomy site is clean. LUNGS: Clear without rhonchi, rales, or wheezing. Secretions are small, thin, and ramirez. HEART: Normal sounds with regular beats. There is no S3, S4, or pericardial rub. ABDOMEN: Soft and nontender with normal bowel sounds. EXTREMITIES: Warm without cyanosis, clubbing, or edema. LABORATORY DATA: Hemoglobin is 10.4, hematocrit 30.9 with MCV of 94, WBC 11.4, and platelets 326. BUN and creatinine is 13 and 0.9 respectively. Sodium is 134, potassium 4.4, chloride 97, CO2 is 98, calcium is 10, phosphorus is 4.2, and magnesium 2.0. IMPRESSION: The patient clinically appears . Repeat laboratory tests will be done in the a.m. Matt Flores M.D. DR: HUGO JOB#: [id number] CC:
--- NOTE | 2018-11-30 13:10 | Pulmonolgy Critical Care Note ---
Critical Care - Asmt/Plan Problems: (1) Septic shock (2) Healthcare-associated pneumonia (3) Cerebral infarction (4) Feeding by G-tube (5) Acute metabolic encephalopathy (6) Anemia Respiratory: monitor respiratory rate, adjust FIO2, CXR Cardiac: continue to monitor HR/BP Renal: F/U I&O, keep IV fluid Infectious Disease: check cultures Gastrointestinal: continue feedings/current rate Endocrine: monitor blood sugar Hematologic: monitor H/H, transfuse if hgb<8.5 Neurologic: PRN Morphine, keep patient comfortable Prophylaxis: Protonix Time Spent (Minutes): 30 Notes Reviewed: cardio Discussed with: nurses, consultants, 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 - Objective Last 24 Hour Vital Signs Date Time Temp Pulse Resp B/P (MAP) Pulse Ox O2 Delivery O2 Flow Rate FiO2 11/30/18 13:06 110 18 40 11/30/18 11:18 118 25 40 11/30/18 10:55 101.4 11/30/18 09:26 122 19 40 11/30/18 09:15 103.0 11/30/18 09:15 103.0 11/30/18 08:00 118 11/30/18 08:00 100.4 117 19 120/73 (89) 100 11/30/18 08:00 Mechanical Ventilator 11/30/18 08:00 40 11/30/18 07:19 118 24 40 11/30/18 06:21 99.5 11/30/18 05:03 129 39 40 11/30/18 04:00 121 11/30/18 04:00 Mechanical Ventilator 11/30/18 04:00 100.0 117 24 112/66 (81) 100 11/30/18 04:00 40 11/30/18 03:16 118 18 40 11/30/18 01:34 120 23 40 11/30/18 00:00 101.0 112 18 105/63 (77) 100 11/30/18 00:00 Mechanical Ventilator 11/30/18 00:00 40 11/30/18 00:00 113 11/29/18 23:58 113 18 40 11/29/18 23:57 113 18 Mechanical Ventilator 40 11/29/18 20:45 110 19 40 11/29/18 20:17 118 31 40 11/29/18 20:00 Mechanical Ventilator 11/29/18 20:00 40 11/29/18 20:00 101.7 110 18 128/67 (87) 100 11/29/18 20:00 110 11/29/18 17:30 100.0 11/29/18 16:56 108 11/29/18 16:00 40 11/29/18 16:00 Mechanical Ventilator 11/29/18 16:00 101.7 107 18 131/73 (92) 100 Status: sedated Condition: critical HEENT: atraumatic Neck: full ROM Lungs: clear Heart: HR/BP unstable Abdomen: non-tender, active bowel sounds Extremities: edema Decubiti: location Micro: Microbiology Date/Time Source Procedure Growth Status 11/28/18 23:35 Blood Blood Culture - Preliminary Resulted 11/28/18 23:30 Blood Blood Culture - Preliminary NO GROWTH AFTER 24 HOURS Resulted 11/28/18 04:00 Nasal Nares Left Influenza Types A,B Antigen (FATMATA) - Final Complete 11/28/18 00:30 Sputum Induced Gram Stain - Final Resulted 11/28/18 00:30 Sputum Culture - Preliminary Gram Negative Bacillus 1 Gram Negative Bacillus 2 Resulted 11/29/18 00:30 Catheter Site Catheter Tip Culture - Preliminary NO GROWTH AFTER 24 HOURS Resulted Accucheck: 309 Critical Care - Subjective ROS Limited/Unobtainable: Yes Condition: critical EKG Rhythm: Sinus Rhythm FI02: 40 Vent Support Breath Rate: 18 Vent Support Mode: AC Vent Tidal Volume: 450 Sputum Amount: Moderate PEEP: 0.0 PIP: 18 Tube Feeding Amount: 50 I&O: Intake and Output 11/29/18 11/30/18 19:00 07:00 Intake Total 1078.8 ml 1672.416 ml Output Total 1100 ml 1500 ml Balance -21.2 ml 172.416 ml Intake Free Water 50 ml IV Total 528.8 ml 1022.416 ml Tube Feeding 450 ml 600 ml Other 100 ml Output Urine Total 1100 ml 1500 ml # Bowel Movements 1 CXR: no change Law Carter MD Nov 30, 2018 13:10
--- NOTE | 2018-11-30 13:54 | NUR ---
*-* INSURANCE *-* ALL CLINICAL HAVE BEEN FAXED TO: [facility] PLEASE FAX THE REVIEW/CLINICALS P- [phone]...OPT-1- OPT-3 F- [phone]
--- NOTE | 2018-11-30 14:41 | NUR ---
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 PNE VS: BP 120/73, P 122, T 103.0, RR 25, SpO2 100 on VENT AC 18, TV 450, FiO2 40 WBC 16.2, RBC 3.47, Hgb 10.6, Hct 32.1, Na 126, K 5.9 IS:PREVACID 30mg GT KAYEXALATE 60gm NS x1L IV VANCOMYCIN 275ml IVPB MEROPENEM 55ml IVPB ZITHROMAX 500mg NOVOLOG SUBQ SDU STATUS
--- NOTE | 2018-11-30 15:00 | NUR ---
NURSE NOTES: Dr SCHREIBER called from [facility] asking about the patient's current condition. She asked to be contacted by Dr Flores. Will give Dr Flores the message when he rounds on the patient.
[2018-11-30 16:00] VITALS: BP 100/69
--- NOTE | 2018-11-30 19:19 | NUR ---
HAND-OFF: Report given to KOLE Haynes. Patient VS stable at this time. Patient's temperature is 98.1 at this time. Cooling blanket turned off at this time. Addendum: 11/30/18 at 2103 by Halina Bull RN duplicate documentation.
--- NOTE | 2018-11-30 19:20 | NUR ---
NURSE NOTES: Received patient from KOLE Meade. Will continue plan of care.
--- NOTE | 2018-11-30 19:20 | NUR ---
HAND-OFF: Report given to KOLE Haynes. Patient VS stable at this time. Patient temperature 98.1 at this time. Cooling blanket turned off at this time. Addendum: 11/30/18 at 2100 by Halina Bull RN Endorsed to have Dr Flores call Dr Jimenez at [facility].
[2018-11-30 20:00] VITALS: BP 117/69
--- NOTE | 2018-11-30 20:42 | General Progress Note ---
Assessment/Plan Assessment/Plan Assessment and Recs: # Thrombocytopenia - potential causes multifactorial, at this time, likely due to infection, Peripheral smear ordered to evaluate for blasts /schistocytes does show some mild bandemia and immature cells --> flow cytometry reviewed and is negative for abnormal clonal population --> Hep panel and HIV negative from prior admission --> US abd to evaluate for cirrhosis and hsm ordered is negative for ascites --> abx and other meds have been reviewed --> plt 40k-->50k-->96k-_>240k-->376k --> Transfuse if Plt < 20k and fever, or if Plt < 10k without fever # Anemia of chronic disease -- panel has been ordered and reviewed, ferritin is >1000, tibc is low --> maintain hgb above 7 --> panel reviewed, no hemolysis, peripheral smear is wnl --> monitor for bleeding --> gi recs appreciated --> would hold off any iron at this time --> cea is 7.8 --> hgb trend 8.3-->8.8-->8.7-->10.4 # Coagulopathy - potentailly related to decreased po intake --> consider vit K prior to any proecedure --> ffp as well if patient bleeds # Gastrostomy tube dependent --> continue tube feeds # Rectal tube in place from before --> wound care # Clostridium difficile diarrhea --> s/p prior rx # Dehydration --> s/p ivf have been given # Iron deficiency --> iron iv has been given # Tracheostomy ++/vent --> per pulm recs # Encephalopathy # Gram positive cocci --> on abx as per id The timing of this note does not necessarily reflect the time of the patient was seen. Greatly appreciate consultation! Subjective Constitutional: Denies: no symptoms, chills, diaphoresis, fever, malaise, weakness, other HEENT: Denies: no symptoms, eye pain, blurred vision, tearing, double vision, ear pain, ear discharge, nose pain, nose congestion, throat pain, throat swelling, mouth pain, mouth swelling, other Cardiovascular: Denies: no symptoms, chest pain, edema, irregular heart rate, lightheadedness, palpitations, syncope, other Respiratory: Denies: no symptoms, cough, orthopnea, shortness of breath, SOB with excertion, SOB at rest, sputum, stridor, wheezing, other Gastrointestinal/Abdominal: Denies: no symptoms, abdomen distended, abdominal pain, black stools, tarry stools, blood in stool, constipated, diarrhea, difficulty swallowing, nausea, poor appetite, poor fluid intake, rectal bleeding , vomiting, other Genitourinary: Denies: no symptoms, burning, discharge, frequency, flank pain, hematuria, incontinence, pain, urgency, other Neurologic/Psychiatric: Denies: no symptoms, anxiety, depressed, emotional problems, headache, numbness, paresthesia, pre-existing deficit, seizure, tingling, tremors, weakness, other Allergies: Coded Allergies: No Known Allergies (Unverified , 10/11/18) Subjective 11/22: plts are lower today as is cbc/hgb, trending closely, low threshold to transfusion 11/23: k is low, no fevers, no chills, cbc reviewed, plt remains low 11/24: no events, cbc reviewed, trach to vent, repositioned today 11/25: on abx broad spectrum, seen by pulm, repositioned during exam 11/27: no fevers or chills, on abx, on a vent, gtube in place 11/28: trach to vent, no complaints, no f/c, plt better 11/29: remains with fevers, no chills noted, no night sweats, no complaints reported 11/30: on broad specturm abx, started by Dr. Aguiar, with fever Objective Last 24 Hour Vital Signs Date Time Temp Pulse Resp B/P (MAP) Pulse Ox O2 Delivery O2 Flow Rate FiO2 11/30/18 20:34 94 18 40 11/30/18 20:00 40 11/30/18 20:00 Mechanical Ventilator 11/30/18 19:34 91 18 40 11/30/18 17:05 96 18 40 11/30/18 16:00 99.6 94 18 100/69 (79) 100 11/30/18 16:00 Mechanical Ventilator 11/30/18 16:00 98 11/30/18 16:00 40 11/30/18 15:10 112 24 40 11/30/18 14:04 98.6 11/30/18 13:06 110 18 40 11/30/18 12:00 Mechanical Ventilator 11/30/18 12:00 40 11/30/18 12:00 102.0 114 22 126/72 (90) 100 11/30/18 11:46 116 11/30/18 11:18 118 25 40 11/30/18 10:55 101.4 11/30/18 09:26 122 19 40 11/30/18 09:15 103.0 11/30/18 08:00 118 11/30/18 08:00 100.4 117 19 120/73 (89) 100 11/30/18 08:00 Mechanical Ventilator 11/30/18 08:00 40 11/30/18 07:19 118 24 40 11/30/18 06:21 99.5 11/30/18 05:03 129 39 40 11/30/18 04:00 121 11/30/18 04:00 Mechanical Ventilator 11/30/18 04:00 100.0 117 24 112/66 (81) 100 11/30/18 04:00 40 11/30/18 03:16 118 18 40 11/30/18 01:34 120 23 40 11/30/18 00:00 101.0 112 18 105/63 (77) 100 11/30/18 00:00 Mechanical Ventilator 11/30/18 00:00 40 11/30/18 00:00 113 11/29/18 23:58 113 18 40 11/29/18 23:57 113 18 Mechanical Ventilator 40 11/29/18 20:45 110 19 40 Intake and Output 11/29/18 11/30/18 19:00 07:00 Intake Total 1078.8 ml 1672.416 ml Output Total 1100 ml 1500 ml Balance -21.2 ml 172.416 ml Intake Free Water 50 ml IV Total 528.8 ml 1022.416 ml Tube Feeding 450 ml 600 ml Other 100 ml Output Urine Total 1100 ml 1500 ml # Bowel Movements 1 Laboratory Tests 11/30/18 03:25: White Blood Count 16.2H, Red Blood Count 3.47L, Hemoglobin 10.6L, Hematocrit 32.1L, Mean Corpuscular Volume 92, Mean Corpuscular Hemoglobin 30.5, Mean Corpuscular Hemoglobin Concent 33.0, Red Cell Distribution Width 16.6H, Platelet Count 376, Mean Platelet Volume 5.3L, Neutrophils (%) (Auto) 50.7, Lymphocytes (%) (Auto) 33.6, Monocytes (%) (Auto) 13.4H, Eosinophils (%) (Auto) 1.4, Basophils (%) (Auto) 1.0, Sodium Level 126L, Potassium Level 5.9H, Chloride Level 90L, Carbon Dioxide Level 26, Anion Gap 10, Blood Urea Nitrogen 15, Creatinine 0.9, Estimat Glomerular Filtration Rate > 60, Glucose Level 222H , Calcium Level 9.8, Phosphorus Level 3.6, Magnesium Level 2.2, Total Bilirubin 0.6, Aspartate Amino Transf (AST/SGOT) 77H, Alanine Aminotransferase (ALT/SGPT) 28, Alkaline Phosphatase 191H, Total Protein 9.0H, Albumin 2.5L, Globulin 6.5, Albumin/Globulin Ratio 0.4L 11/30/18 11:20: Potassium Level 4.5 11/30/18 19:00: Vancomycin Level Trough 11.9 Height (Feet): 5 Height (Inches): 8.00 Weight (Pounds): 140 Objective Vitals: have been reviewed Gen: no apparent distress Head: normocephalic EENT: PERRL/EOMI Neck: supple, tracheotomy +++ Respiratory: normal breath sounds, no respiratory distress ++ trach Cardiovascular: normal rate Gastrointestinal: normal inspection, non tender, soft, normal bs, gt+++ Rectal: deferred Genitourinary: deferred Musculoskeletal: normal inspection, back normal Skin: normal color, no rash, warm/dry Lymphatic: normal inspection, no adenopathy Antonio Higgins MD Nov 30, 2018 20:42
[2018-11-30] MEDS: Vancomycin 1.25gm Premix IVPB SCH (21:13)
--- NOTE | 2018-11-30 22:45 | NUR ---
NURSE NOTES: Received report from Ivy RN, pt. received in bed obtunded, pt.- non-verbal, no signs or symptoms of acute cardiac or respiratory distress noted, pt. is on hall monitor, bed in lowest position and call light within easy reach, bed alarm on, side rails up x's3 and safety brakes engaged, pt. appears to be tolerating current vent settings well- AC 18, TV 450, Fio2 @40%, G tube Vital AF 1.2 running 50cc/hr- no residual noted, Condom cath intact and draining to gravity, dressings dry and intact, RFA 20G running NS at 100cc/hr- IV intact and patent, LFA 20G IV intact and patent- TKO, safety measures continued, will continue with plan of care.
[2018-12-01] VITALS: BP 105/60
--- NOTE | 2018-12-01 00:30 | Progress Note ---
DATE: 11/30/2018 CARDIOLOGY PROGRESS NOTE: SUBJECTIVE: The patient is ventilated via tracheostomy. Blood pressure parameters are stable off pressors. OBJECTIVE: VITAL SIGNS: Blood pressure 120/73, pulse 117, respirations 19, temperature max 103. HEENT: Thick secretions. LUNGS: Coarse breath sounds with rhonchi. HEART: Regular rhythm. Rapid rate. Normal S1, S2. ABDOMEN: Soft. G-tube intact. EXTREMITIES: Trace edema. LABORATORY DATA: Sputum is gram-negative bacillus. White count 16, hemoglobin 10.6. Potassium 5.9, sodium 126, BUN 15, creatinine 0.9, albumin 2.5. IMPRESSION: 1. Recovered shock, but now worsening sepsis with new pulmonary infection suspected. 2. Lyihayhk-vu-njbyua protein-calorie malnutrition. 3. Sinus tachycardia. 4. Hyponatremia. 5. Hyperkalemia. 6. Hypochloremia. 7. Remains critical and guarded with ventilator-dependent respiratory failure. PLAN: 1. Antimicrobials. 2. Ventilator support. 3. Saline hydration. 4. Kayexalate as needed. 5. Hold diuresis. 6. Protein supplement by feeding tube. 7. DVT and stress ulcer prophylaxes. 8. Await final culture results. Jorge A Morales M.D. DR: MICHA JOB#: [id number] CC:
[2018-12-01] MEDS: Meropenem 1 GM in NS 55 ML IVPB SCH ×3 (01:22→17:41)
[2018-12-01 04:00] VITALS: BP 101/65
[2018-12-01] MEDS: Lacri-Lube Opth Oint 3.5gm BOTH EYES SCH ×3 (05:00→17:41)
[2018-12-01] MEDS: NovoLOG Insulin Flexpen SUBQ SCH ×3 (05:04→17:46)
[2018-12-01 05:42] LABS: BASOPHILS % (AUTO) 1.6 % (0.0-2.0); EOSINOPHILS % (AUTO) 3.2 % (0.0-3.0); HEMATOCRIT 28.7 % (42.0-52.0); HEMOGLOBIN 9.6 G/DL (14.2-18.0); LYMPHOCYTES % (AUTO) 19.9 % (20.0-45.0); MEAN CORPUSCULAR VOLUME 91 FL (80-99); MONOCYTES % (AUTO) 10.3 % (1.0-10.0); PLATELET COUNT 326 K/UL (150-450); RED BLOOD COUNT 3.15 M/UL (4.70-6.10); RED CELL DISTRIBUTION WIDTH 15.8 % (11.6-14.8); WHITE BLOOD COUNT 8.9 K/UL (4.8-10.8)
[2018-12-01 06:21] LABS: ALANINE AMINOTRANSFERASE 20 U/L (12-78); ALBUMIN 2.3 G/DL (3.4-5.0); ALBUMIN/GLOBULIN RATIO 0.4 (1.0-2.7); ALKALINE PHOSPHATASE 161 U/L (46-116); ANION GAP 6 mmol/L (5-15); ASPARTATE AMINO TRANSFERASE 40 U/L (15-37); BILIRUBIN,TOTAL 0.3 MG/DL (0.2-1.0); BLOOD UREA NITROGEN 19 mg/dL (7-18); CARBON DIOXIDE 29 MMOL/L (21-32); CHLORIDE 99 MMOL/L (98-107); CREATININE 0.7 MG/DL (0.55-1.30); POTASSIUM 3.7 MMOL/L (3.5-5.1); SODIUM 134 MMOL/L (136-145)
--- NOTE | 2018-12-01 07:16 | NUR ---
NURSE NOTES: left msg with exchange regarding (+) MDR sputum results- awaiting for DR. Trent to call back- am nurse aware to f/u with results.
--- NOTE | 2018-12-01 07:26 | NUR ---
NURSE NOTES: DR. Aguiar notified of results for (+) MDR sputum- per doctor he will look at results and call back.
--- NOTE | 2018-12-01 07:27 | NUR ---
HAND-OFF: Report given to Mansi SHARIF,pt. remains stable and no signs of distress noted.
--- NOTE | 2018-12-01 07:41 | NUR ---
NURSE NOTES: Report received from KOLE Dutta. Observed patient in bed sleeping. Obtunded and open eyes with shaking. Trach to vent with previous setting with no distress noted. GT site intact with ongoing feeding. HOB elevated. No s/s of pain at this time. Condom cath intact and draining well. Bed in lowest position. Call light within reach. Will continue to monitor.
--- NOTE | 2018-12-01 07:44 | NUR ---
RESPIRATORY NOTE: received pt on current vent orders with tracheostomy; shiley 6. trach is midline, secured via trach guard/tie and patent. no resp distress noted at this time. HR and spo2 WNL. moderate amount of secretions when sxn'd. vent is plugged into the redoutlet with alarms set and audible. will cont to monitor.
[2018-12-01 08:00] VITALS: BP 108/63
[2018-12-01] MEDS: Azithromycin 250mg tab ORAL SCH (08:34)
[2018-12-01] MEDS: Vancomycin 1.25gm Premix IVPB SCH (08:34)
--- NOTE | 2018-12-01 10:06 | Infectious Diseases Prog Note ---
Assessment/Plan Assessment/Plan Septic shock, SP- 2ry to PNA -11/28 cXR: Improved but persistent and still considerable bilateral interstitial and airspace disease, since previous study of 11/24/2018 Improved left, persistent right pleural effusions -11/24 CXR: Extensive consolidation bilaterally unchanged. There is a left pleural effusion noted. 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 -11/19 Bcx neg -influenza sc neg -sp cx Acinetobacter - Sen pend Bacteremia - contaminant? Blood Cx 11/28/18 - CoNS Blood Cx 11/29/18 - NGTD Cath tip 11/29/18 - NGTD Fever, ongoing Leukocytosis, recurrent- r/o bacteremia, UTI Lactic acidosis, SP Acute on chronic respiratory failure Mild LFTs elevation, SP CVA, Anoxic encephalopathy dysphagia s/p GT COPD Dm2 HTN GERD HLD chronic respiratory failure trach dependant SNF resident Plan: - Patient clinically improving -Continue Meropenem #3 and Azithromycin #3 - pending culture sensitivities - 12/01/18 S/P Vancomycin #4 - 11/29/18 SP Zosyn #11 and Amikacin #11 -11/19 SP Levaquin x1 -Bcx x2, u /a w/ reflex -f.u sputum cx -f/u sp cx, legionella ag urine -Monitor CBC/CMP, temperatures -PEG/trach care -aspiration precautions -wound care per hospital protocol Will continue to follow along with you. Subjective Allergies: Coded Allergies: No Known Allergies (Unverified , 10/11/18) Subjective Afebrile now On Vent satting swell on 40% O2 Leukocytosis resolved Objective Vital Signs Last 24 Hour Vital Signs Date Time Temp Pulse Resp B/P (MAP) Pulse Ox O2 Delivery O2 Flow Rate FiO2 12/01/18 09:10 100 19 40 12/01/18 08:00 Mechanical Ventilator 12/01/18 08:00 95 12/01/18 08:00 40 12/01/18 08:00 98.8 99 26 108/63 (78) 100 12/01/18 07:39 92 20 40 12/01/18 04:30 89 21 40 12/01/18 04:00 Mechanical Ventilator 12/01/18 04:00 97.9 94 20 101/65 (77) 99 12/01/18 04:00 40 12/01/18 03:27 91 12/01/18 03:20 85 18 40 12/01/18 01:26 89 18 40 12/01/18 00:00 97.4 84 21 105/60 (75) 100 12/01/18 00:00 Mechanical Ventilator 12/01/18 00:00 40 11/30/18 23:25 84 11/30/18 22:59 81 20 40 11/30/18 22:04 98 11/30/18 20:34 94 18 40 11/30/18 20:00 40 11/30/18 20:00 97.7 88 20 117/69 (85) 100 11/30/18 20:00 Mechanical Ventilator 11/30/18 19:34 91 18 40 11/30/18 17:05 96 18 40 11/30/18 16:00 99.6 94 18 100/69 (79) 100 11/30/18 16:00 Mechanical Ventilator 11/30/18 16:00 98 11/30/18 16:00 40 11/30/18 15:10 112 24 40 11/30/18 14:04 98.6 11/30/18 13:06 110 18 40 11/30/18 12:00 Mechanical Ventilator 11/30/18 12:00 40 11/30/18 12:00 102.0 114 22 126/72 (90) 100 11/30/18 11:46 116 11/30/18 11:18 118 25 40 11/30/18 10:55 101.4 Height (Feet): 5 Height (Inches): 8.00 Weight (Pounds): 140 Objective GENERAL: Trached on Vent on 40% O2 LUNGS: Bilateral coarse breath sounds. HEART: RRR Normal S1, S2. ABDOMEN: Soft. G-tube intact. EXTREMITIES: There is trace edema. Microbiology Date/Time Source Procedure Growth Status 11/29/18 18:09 Blood Blood Culture - Preliminary NO GROWTH AFTER 24 HOURS Resulted 11/29/18 18:05 Blood Blood Culture - Preliminary NO GROWTH AFTER 24 HOURS Resulted 11/28/18 23:35 Blood Blood Culture - Preliminary Staphylococcus Sp Coag Neg Resulted 11/28/18 23:30 Blood Blood Culture - Preliminary NO GROWTH AFTER 48 HOURS Resulted 11/29/18 00:30 Catheter Site Catheter Tip Culture - Preliminary NO GROWTH AFTER 24 HOURS Resulted Laboratory Tests Test 11/30/18 11:20 11/30/18 19:00 12/01/18 04:00 Potassium Level 4.5 MMOL/L (3.5-5.1) 3.7 MMOL/L (3.5-5.1) Vancomycin Level Trough 11.9 ug/mL (5.0-12.0) White Blood Count 8.9 K/UL (4.8-10.8) Red Blood Count 3.15 M/UL (4.70-6.10) L Hemoglobin 9.6 G/DL (14.2-18.0) L Hematocrit 28.7 % (42.0-52.0) L Mean Corpuscular Volume 91 FL (80-99) Mean Corpuscular Hemoglobin 30.3 PG (27.0-31.0) Mean Corpuscular Hemoglobin Concent 33.3 G/DL (32.0-36.0) Red Cell Distribution Width 15.8 % (11.6-14.8) H Platelet Count 326 K/UL (150-450) Mean Platelet Volume 5.7 FL (6.5-10.1) L Neutrophils (%) (Auto) 65.0 % (45.0-75.0) Lymphocytes (%) (Auto) 19.9 % (20.0-45.0) L Monocytes (%) (Auto) 10.3 % (1.0-10.0) H Eosinophils (%) (Auto) 3.2 % (0.0-3.0) H Basophils (%) (Auto) 1.6 % (0.0-2.0) Sodium Level 134 MMOL/L (136-145) L Chloride Level 99 MMOL/L (98-107) Carbon Dioxide Level 29 MMOL/L (21-32) Anion Gap 6 mmol/L (5-15) Blood Urea Nitrogen 19 mg/dL (7-18) H Creatinine 0.7 MG/DL (0.55-1.30) Estimat Glomerular Filtration Rate > 60 mL/min (>60) Glucose Level 195 MG/DL (74-106) H Calcium Level 9.0 MG/DL (8.5-10.1) Magnesium Level 2.2 MG/DL (1.8-2.4) Total Bilirubin 0.3 MG/DL (0.2-1.0) Aspartate Amino Transf (AST/SGOT) 40 U/L (15-37) H Alanine Aminotransferase (ALT/SGPT) 20 U/L (12-78) Alkaline Phosphatase 161 U/L (46-116) H Pro-B-Type Natriuretic Peptide 825 pg/mL (0-125) H Total Protein 7.6 G/DL (6.4-8.2) Albumin 2.3 G/DL (3.4-5.0) L Globulin 5.3 g/dL Albumin/Globulin Ratio 0.4 (1.0-2.7) L Current Medications Medications (Trade) Dose Ordered Sig/Last Route PRN Reason Start Time Stop Time Status Last Admin Dose Admin Acetaminophen (Tylenol) 650 mg Q4H PRN GT Mild Pain/Temp > 100.5 11/26/18 09:30 12/20/18 21:29 11/30/18 13:34 Artificial Tears (Lacri-Lube) 1 applic Q6HR BOTH EYES 11/26/18 12:00 12/20/18 11:59 12/01/18 05:00 Azithromycin (Zithromax) 500 mg DAILY ORAL 11/29/18 16:00 12/06/18 15:59 12/01/18 08:34 Dextrose (Dextrose 50%) 25 ml Q30M PRN IV Hypoglycemia 11/26/18 06:30 12/20/18 08:59 Insulin Aspart (NovoLOG) Q6H SUBQ 11/26/18 12:00 12/21/18 05:59 12/01/18 05:04 Lansoprazole (Prevacid) 30 mg DAILY GT 11/30/18 09:00 12/30/18 08:59 12/01/18 08:34 Meropenem 1 gm/ Sodium Chloride 55 ml @ 110 mls/hr Q8HR@0200,1000,1800 IVPB 11/29/18 18:00 12/04/18 17:59 12/01/18 01:22 Polyethylene Glycol (Miralax) 17 gm DAILY PRN ORAL Constipation 11/26/18 09:00 12/20/18 09:14 Sodium Chloride 1,000 ml @ 100 mls/hr Q10H IV 11/30/18 08:00 12/30/18 07:59 12/01/18 04:59 Vancomycin HCl (Vanco rx to dose) 1 ea DAILY PRN MISC Per rx protocol 11/29/18 15:45 12/29/18 15:44 Vancomycin HCl/ Dextrose 275 ml @ 183.333 mls/hr Q12HR IVPB 11/30/18 21:00 12/05/18 20:59 12/01/18 08:34 Jorge A Aguiar MD Dec 01, 2018 10:06
--- NOTE | 2018-12-01 10:33 | Pulmonolgy Critical Care Note ---
Critical Care - Asmt/Plan Problems: (1) Septic shock (2) Healthcare-associated pneumonia (3) Cerebral infarction (4) Feeding by G-tube (5) Acute metabolic encephalopathy (6) Anemia Respiratory: monitor respiratory rate, adjust FIO2, CXR Cardiac: continue to monitor HR/BP Renal: F/U I&O, keep IV fluid, check electrolytes Infectious Disease: check cultures, continue antibiotics Gastrointestinal: continue feedings/current rate Endocrine: monitor blood sugar, continue sliding scale insulin Hematologic: monitor H/H, transfuse if hgb<8.5 Neurologic: PRN Ativan, keep patient comfortable Affect: PRN ativan Prophylaxis: Heparin Time Spent (Minutes): 40 Notes Reviewed: renal Discussed with: nurses, consultants Critical Care - Objective Last 24 Hour Vital Signs Date Time Temp Pulse Resp B/P (MAP) Pulse Ox O2 Delivery O2 Flow Rate FiO2 12/01/18 09:10 100 19 40 12/01/18 08:00 Mechanical Ventilator 12/01/18 08:00 95 12/01/18 08:00 40 12/01/18 08:00 98.8 99 26 108/63 (78) 100 12/01/18 07:39 92 20 40 12/01/18 04:30 89 21 40 12/01/18 04:00 Mechanical Ventilator 12/01/18 04:00 97.9 94 20 101/65 (77) 99 12/01/18 04:00 40 12/01/18 03:27 91 12/01/18 03:20 85 18 40 12/01/18 01:26 89 18 40 12/01/18 00:00 97.4 84 21 105/60 (75) 100 12/01/18 00:00 Mechanical Ventilator 12/01/18 00:00 40 11/30/18 23:25 84 11/30/18 22:59 81 20 40 11/30/18 22:04 98 11/30/18 20:34 94 18 40 11/30/18 20:00 40 11/30/18 20:00 97.7 88 20 117/69 (85) 100 11/30/18 20:00 Mechanical Ventilator 11/30/18 19:34 91 18 40 11/30/18 17:05 96 18 40 11/30/18 16:00 99.6 94 18 100/69 (79) 100 11/30/18 16:00 Mechanical Ventilator 11/30/18 16:00 98 11/30/18 16:00 40 11/30/18 15:10 112 24 40 11/30/18 14:04 98.6 11/30/18 13:06 110 18 40 11/30/18 12:00 Mechanical Ventilator 11/30/18 12:00 40 11/30/18 12:00 102.0 114 22 126/72 (90) 100 11/30/18 11:46 116 11/30/18 11:18 118 25 40 11/30/18 10:55 101.4 Status: obtunded Condition: critical HEENT: atraumatic Lungs: clear Heart: HR/BP stable, HR/BP unstable Abdomen: soft, active bowel sounds Extremities: no C/C/E, edema Decubiti: stage Micro: Microbiology Date/Time Source Procedure Growth Status 11/29/18 18:09 Blood Blood Culture - Preliminary NO GROWTH AFTER 24 HOURS Resulted 11/29/18 18:05 Blood Blood Culture - Preliminary NO GROWTH AFTER 24 HOURS Resulted 11/28/18 23:35 Blood Blood Culture - Preliminary Staphylococcus Sp Coag Neg Resulted 11/28/18 23:30 Blood Blood Culture - Preliminary NO GROWTH AFTER 48 HOURS Resulted 11/29/18 00:30 Catheter Site Catheter Tip Culture - Preliminary NO GROWTH AFTER 24 HOURS Resulted Accucheck: 200 Critical Care - Subjective ROS Limited/Unobtainable: Yes Condition: critical FI02: 40 Vent Support Breath Rate: 18 Vent Support Mode: AC Vent Tidal Volume: 450 Sputum Amount: Moderate PEEP: 0.0 PIP: 14 Tube Feeding Amount: 50 I&O: Intake and Output 11/30/18 12/01/18 19:00 07:00 Intake Total 1720 ml 1206 ml Output Total 225 ml 300 ml Balance 1495 ml 906 ml Intake Free Water 60 ml 50 ml IV Total 1160 ml 756 ml Tube Feeding 500 ml 400 ml Output Urine Total 225 ml 300 ml # Bowel Movements 6 1 Labs: Laboratory Tests Test 11/30/18 11:20 11/30/18 19:00 12/01/18 04:00 Potassium Level 4.5 MMOL/L (3.5-5.1) 3.7 MMOL/L (3.5-5.1) Vancomycin Level Trough 11.9 ug/mL (5.0-12.0) White Blood Count 8.9 K/UL (4.8-10.8) Red Blood Count 3.15 M/UL (4.70-6.10) L Hemoglobin 9.6 G/DL (14.2-18.0) L Hematocrit 28.7 % (42.0-52.0) L Mean Corpuscular Volume 91 FL (80-99) Mean Corpuscular Hemoglobin 30.3 PG (27.0-31.0) Mean Corpuscular Hemoglobin Concent 33.3 G/DL (32.0-36.0) Red Cell Distribution Width 15.8 % (11.6-14.8) H Platelet Count 326 K/UL (150-450) Mean Platelet Volume 5.7 FL (6.5-10.1) L Neutrophils (%) (Auto) 65.0 % (45.0-75.0) Lymphocytes (%) (Auto) 19.9 % (20.0-45.0) L Monocytes (%) (Auto) 10.3 % (1.0-10.0) H Eosinophils (%) (Auto) 3.2 % (0.0-3.0) H Basophils (%) (Auto) 1.6 % (0.0-2.0) Sodium Level 134 MMOL/L (136-145) L Chloride Level 99 MMOL/L (98-107) Carbon Dioxide Level 29 MMOL/L (21-32) Anion Gap 6 mmol/L (5-15) Blood Urea Nitrogen 19 mg/dL (7-18) H Creatinine 0.7 MG/DL (0.55-1.30) Estimat Glomerular Filtration Rate > 60 mL/min (>60) Glucose Level 195 MG/DL (74-106) H Calcium Level 9.0 MG/DL (8.5-10.1) Magnesium Level 2.2 MG/DL (1.8-2.4) Total Bilirubin 0.3 MG/DL (0.2-1.0) Aspartate Amino Transf (AST/SGOT) 40 U/L (15-37) H Alanine Aminotransferase (ALT/SGPT) 20 U/L (12-78) Alkaline Phosphatase 161 U/L (46-116) H Pro-B-Type Natriuretic Peptide 825 pg/mL (0-125) H Total Protein 7.6 G/DL (6.4-8.2) Albumin 2.3 G/DL (3.4-5.0) L Globulin 5.3 g/dL Albumin/Globulin Ratio 0.4 (1.0-2.7) L aLw Carter MD Dec 01, 2018 10:33
[2018-12-01 12:00] VITALS: BP 108/66
--- NOTE | 2018-12-01 13:48 | NUR ---
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 PNA VS: BP 108/66, P 100, T 100.0, RR 26, SpO2 100 on VENT AC 18, TV 450, FiO2 40 RBC 3.15, Hgb 9.6, Hct 28.7, Na 134, BUN 19 IS:NOVOLOG SUBQ ZITHROMAX 500mg MEROPENEM/NS 55ml IVPB NSx1L IV PREVACID 30mg GT VANCOMYCIN/D5 275ml IVPB SDU STATUS
--- NOTE | 2018-12-01 14:53 | NUR ---
*-* INSURANCE *-* ALL CLINICAL HAVE BEEN FAXED TO: [facility] PLEASE FAX THE REVIEW/CLINICALS P- [phone]...OPT-1- OPT-3 F- [phone]
[2018-12-01] MEDS ORDERED: NS 275ml ONE (15:00)
[2018-12-01] MEDS ORDERED: D5 1/2NS 1000ml IV ONE (15:00)
[2018-12-01] MEDS ORDERED: Tubing IV Secondary IV ONE (15:00)
--- NOTE | 2018-12-01 15:59 | General Progress Note ---
Assessment/Plan Assessment/Plan Assessment and Recs: # Thrombocytopenia - potential causes multifactorial, at this time, likely due to infection, Peripheral smear ordered to evaluate for blasts /schistocytes does show some mild bandemia and immature cells --> flow cytometry reviewed and is negative for abnormal clonal population --> Hep panel and HIV negative from prior admission --> US abd to evaluate for cirrhosis and hsm ordered is negative for ascites --> abx and other meds have been reviewed --> plt 40k-->50k-->96k-_>240k-->376k --> Transfuse if Plt < 20k and fever, or if Plt < 10k without fever # Anemia of chronic disease -- panel has been ordered and reviewed, ferritin is >1000, tibc is low --> maintain hgb above 7 --> panel reviewed, no hemolysis, peripheral smear is wnl --> monitor for bleeding --> gi recs appreciated --> would hold off any iron at this time --> cea is 7.8, as per gi recs --> hgb trend 8.3-->8.8-->8.7-->10.4-->9.5 # Coagulopathy - potentailly related to decreased po intake --> consider vit K prior to any proecedure --> ffp as well if patient bleeds # Gastrostomy tube dependent --> continue tube feeds # Rectal tube in place from before --> wound care # Clostridium difficile diarrhea --> s/p prior rx # Dehydration --> s/p ivf have been given # Iron deficiency --> iron iv has been given # Tracheostomy ++/vent --> per pulm recs # Encephalopathy # Gram positive cocci --> on abx as per id The timing of this note does not necessarily reflect the time of the patient was seen. Greatly appreciate consultation! Subjective Respiratory: Denies: no symptoms, cough, orthopnea, shortness of breath, SOB with excertion, SOB at rest, sputum, stridor, wheezing, other Gastrointestinal/Abdominal: Denies: no symptoms, abdomen distended, abdominal pain, black stools, tarry stools, blood in stool, constipated, diarrhea, difficulty swallowing, nausea, poor appetite, poor fluid intake, rectal bleeding , vomiting, other Genitourinary: Denies: no symptoms, burning, discharge, frequency, flank pain, hematuria, incontinence, pain, urgency, other Neurologic/Psychiatric: Denies: no symptoms, anxiety, depressed, emotional problems, headache, numbness, paresthesia, pre-existing deficit, seizure, tingling, tremors, weakness, other Endocrine: Denies: no symptoms, excessive sweating, flushing, intolerance to cold, intolerance to heat, increased hunger, increased thirst, increased urine, unexplained weight gain, unexplained weight loss, other Allergies: Coded Allergies: No Known Allergies (Unverified , 10/11/18) Subjective 11/22: plts are lower today as is cbc/hgb, trending closely, low threshold to transfusion 11/23: k is low, no fevers, no chills, cbc reviewed, plt remains low 11/24: no events, cbc reviewed, trach to vent, repositioned today 11/25: on abx broad spectrum, seen by pulm, repositioned during exam 11/27: no fevers or chills, on abx, on a vent, gtube in place 11/28: trach to vent, no complaints, no f/c, plt better 11/29: remains with fevers, no chills noted, no night sweats, no complaints reported 11/30: on broad specturm abx, started by Dr. Aguiar, with fever 12/01: on abx, condom cath on, remains obtunded Objective Last 24 Hour Vital Signs Date Time Temp Pulse Resp B/P (MAP) Pulse Ox O2 Delivery O2 Flow Rate FiO2 12/01/18 15:55 40 12/01/18 15:52 Mechanical Ventilator 12/01/18 14:30 109 24 40 12/01/18 13:42 100 19 40 12/01/18 12:00 Mechanical Ventilator 12/01/18 12:00 100.0 95 22 108/66 (80) 100 12/01/18 12:00 40 12/01/18 12:00 98 12/01/18 11:19 100 25 40 12/01/18 09:10 100 19 40 12/01/18 08:00 Mechanical Ventilator 12/01/18 08:00 95 12/01/18 08:00 40 12/01/18 08:00 98.8 99 26 108/63 (78) 100 12/01/18 07:39 92 20 40 12/01/18 04:30 89 21 40 12/01/18 04:00 Mechanical Ventilator 12/01/18 04:00 97.9 94 20 101/65 (77) 99 12/01/18 04:00 40 12/01/18 03:27 91 12/01/18 03:20 85 18 40 12/01/18 01:26 89 18 40 12/01/18 00:00 97.4 84 21 105/60 (75) 100 12/01/18 00:00 Mechanical Ventilator 12/01/18 00:00 40 11/30/18 23:25 84 11/30/18 22:59 81 20 40 11/30/18 22:04 98 11/30/18 20:34 94 18 40 11/30/18 20:00 40 11/30/18 20:00 97.7 88 20 117/69 (85) 100 11/30/18 20:00 Mechanical Ventilator 11/30/18 19:34 91 18 40 11/30/18 17:05 96 18 40 11/30/18 16:00 99.6 94 18 100/69 (79) 100 11/30/18 16:00 Mechanical Ventilator 11/30/18 16:00 98 11/30/18 16:00 40 Intake and Output 11/30/18 12/01/18 19:00 07:00 Intake Total 1720 ml 1206 ml Output Total 225 ml 300 ml Balance 1495 ml 906 ml Intake Free Water 60 ml 50 ml IV Total 1160 ml 756 ml Tube Feeding 500 ml 400 ml Output Urine Total 225 ml 300 ml # Bowel Movements 6 1 Laboratory Tests 11/30/18 19:00: Vancomycin Level Trough 11.9 12/01/18 04:00: White Blood Count 8.9, Red Blood Count 3.15L, Hemoglobin 9.6L, Hematocrit 28.7L , Mean Corpuscular Volume 91, Mean Corpuscular Hemoglobin 30.3, Mean Corpuscular Hemoglobin Concent 33.3, Red Cell Distribution Width 15.8H, Platelet Count 326, Mean Platelet Volume 5.7L, Neutrophils (%) (Auto) 65.0, Lymphocytes (%) (Auto) 19.9L, Monocytes (%) (Auto) 10.3H, Eosinophils (%) (Auto ) 3.2H, Basophils (%) (Auto) 1.6, Sodium Level 134L, Potassium Level 3.7, Chloride Level 99, Carbon Dioxide Level 29, Anion Gap 6, Blood Urea Nitrogen 19H , Creatinine 0.7, Estimat Glomerular Filtration Rate > 60, Glucose Level 195H, Calcium Level 9.0, Magnesium Level 2.2, Total Bilirubin 0.3, Aspartate Amino Transf (AST/SGOT) 40H, Alanine Aminotransferase (ALT/SGPT) 20, Alkaline Phosphatase 161H, Pro-B-Type Natriuretic Peptide 825H, Total Protein 7.6, Albumin 2.3L, Globulin 5.3, Albumin/Globulin Ratio 0.4L Height (Feet): 5 Height (Inches): 8.00 Weight (Pounds): 140 Objective Vitals: have been reviewed Gen: no apparent distress Head: normocephalic EENT: PERRL/EOMI Neck: supple, tracheotomy +++ Respiratory: normal breath sounds, no respiratory distress ++ trach Cardiovascular: normal rate Gastrointestinal: normal inspection, non tender, soft, normal bs, gt+++ Rectal: deferred Genitourinary: deferred Musculoskeletal: normal inspection, back normal Skin: normal color, no rash, warm/dry Lymphatic: normal inspection, no adenopathy Antonio Higgins MD Dec 01, 2018 15:59
[2018-12-01 16:00] VITALS: BP 115/64
--- NOTE | 2018-12-01 17:30 | Progress Note ---
DATE: 12/01/2018 SUBJECTIVE: The patient is awake, alert, afebrile, hemodynamically stable. PHYSICAL EXAMINATION: VITAL SIGNS: Blood pressure 117/69, pulse is 88, respirations of 18, and temperature 97.7. HEENT: Eyes were normal. ENT, mucous membranes are moist and intact. NECK: Supple with no JVD without lymph nodes. Tracheostomy site is clean. LUNGS: Clear without rhonchi, rales, or wheezing. Secretions are small, thin, and ramirez. HEART: Normal sounds with regular beats. There is no S3, S4, or pericardial rub. ABDOMEN: Soft and nontender with normal bowel sounds. Gastrostomy site is clean. EXTREMITIES: Warm without cyanosis, clubbing, or edema. LABORATORY AND DIAGNOSTIC DATA: Hemoglobin is 10.8, hematocrit 32.9 with MCV of 92, WBC of 16.2, and platelets 376,000. Her BUN/creatinine 15 and 0.9 respectively. Sodium is 136, potassium 5.9, chloride 90, CO2 . IMPRESSION: The patient is in stable condition and the patient to be discharged. Matt Flores M.D. DR: KEVIN JOB#: [id number] CC:
[2018-12-01] MEDS: Acetaminophen 650mg/20.3ml GT PRN (17:42)
--- NOTE | 2018-12-01 18:27 | NUR ---
NURSE NOTES: Report given to KOLE Elizabeth from [facility]. ETA 1830.
--- NOTE | 2018-12-01 19:25 | NUR ---
NURSE NOTES: Patient transferred to [facility] accompanied with ambulance personnels and RT. Report given to KOLE Elizabeth from [facility]. Pt. is obtunded and non-verbal with trach to vent. No distress noted. No s/s of pain at this time. GT site intact. Skin assessment done and wound photo uploaded. No belongings noted. Informed Blanche Vargas, daughter of the patient about transfer. IV on right and left forearm kept upon discharge. vaccinator and ID band removed prior to discharge. Condom cath intact and draining well. Vitals are stable.
--- NOTE | 2018-12-02 04:15 | Progress Note ---
DATE: 12/01/2018 CARDIOLOGY PROGRESS NOTE SUBJECTIVE: The patient's blood pressure remained stable. He is on ventilator support. Monitored rhythm, sinus. OBJECTIVE: VITAL SIGNS: Blood pressure 108/63, pulse 99, respiratory rate 26. LUNGS: Good breath sounds. No wheezing. Few rhonchi. Thin trach secretions. HEART: Regular rhythm and rate. Normal S1, S2. ABDOMEN: Soft. EXTREMITIES: No edema. G-tube intact. LABORATORY DATA: White count down to 8.9, hemoglobin 9.6. Sodium 134, potassium 3.7, BUN 19, creatinine 0.7. Magnesium 2.2 and pro natriuretic peptide at 825. IMPRESSION: 1. Sepsis with shock, recovered. 2. Chronic diastolic congestive heart failure clinically compensated. 3. Severe protein-calorie malnutrition, on G-tube feedings. 4. Respiratory failure with tracheostomy. 5. Urinary tract infection. 6. Aspiration pneumonia. 7. Hyponatremia improved. PLAN: 1. Stable for subacute facility to complete recovery. 2. Cardiovascular regimen reviewed and reconciled for discharge. Jorge A Morales M.D. DR: RAFFAELE JOB#: [id number] CC:
--- NOTE | 2018-12-02 13:28 | Discharge Summary ---
Discharge Summary Discharge Summary _ DATE OF ADMISSION: 11/20/2018 DATE OF DISCHARGE: 12/01/2018 ADMITTING MD: Dr. Matt Flores DISCHARGED BY: Dr. Law Carter CONSULTANTS: Dr. Law Aguiar BRIEF HOSPITAL COURSE: Patient is a 53-year-old male, resident of an [facility] sub-acute [facility], where he has been in stable condition. Over the last several months, he is known to have been stable on his current medications. He was found to be hypotensive and tachycardic. He was then transferred to [facility] ER. His medical history significant for anoxic encephalopathy with associated respiratory failure. He was unable to be weaned to be weaned off vent support and underwent tracheostomy and gastrostomy. On evaluation at ED, blood pressure was on the low side. Blood work showed WBC 13, hemoglobin 8.8, hematocrit 26.5, platelets 79. Lactic acid was elevated to 4. Urinalysis was negative. Septic workup was initiated. Chest x-ray showed bilateral infiltrates, worse on right. After several liters of fluid, blood pressure remained low. A central line was inserted to the right internal jugular vein. He was a started on IV pressors and was admitted to ICU for septic shock. He was continued on vent support. He was continued on IV pressors. Hemoglobin dropped and was given blood transfusion. Patient had thrombocytopenia. Hepatitis and HIV screen from prior admission was negative. He was given electrolyte replacement. He remained hypotensive. Blood pressure was tenuous. Repeat chest x-ray showed extensive consolidation bilaterally unchanged. He was eventually tapered off IV pressors. He was given Zosyn and amikacin. He continued to have thrombocytopenia. Peripheral smear showed mild bandemia and immature cells. Flow cytometry was negative for abnormal clonal population. He spiked fever 102. Meropenem and IV vancomycin was added to his regimen. Influenza screen was negative. C. difficile negative. Repeat chest x-ray showed improved but persistent and still considerable bilateral interstitial and airspace disease. Improved left but persistent right pleural effusion. Sputum culture showed Citrobacter. Blood culture with coagulase-negative staph. Surveillance blood culture and catheter tip did not isolate any growth. Urine Legionella antigen negative. Patient was eventually transferred to [facility]. FINAL DIAGNOSES: Septic shock Chronic diastolic congestive heart failure, clinically compensated Severe protein calorie malnutrition Acute on chronic respiratory failure with tracheostomy Aspiration pneumonia Healthcare associated pneumonia Hyponatremia -Hyperkalemia Thrombocytopenia Anemia of chronic disease Anemia requiring blood transfusion Coagulopathy Dehydration Acute metabolic encephalopathy Lactic acidosis Dysphagia status post G-tube COPD Type 2 diabetes mellitus GERD Hyperlipidemia SNF Resident DISPOSITION: Patient was transferred to [facility]. I have been assigned to complete a discharge summary on this account, I was not involved with the patient's management. Trinity Townsend NP Dec 02, 2018 13:28
--- NOTE | 2018-12-02 13:30 | History and Physical Report ---
DATE OF ADMISSION: 11/20/2018 REASON FOR ADMISSION: Admission to [facility] of this 53-year-old patient because of septic shock. HISTORY OF PRESENT ILLNESS: The patient is a resident of an extended care facility subacute unit where he has been in stable condition. Over the last several months, he is known to but has been stable on his current medication. hypotension and tachycardia and was transferred to [facility] ER. . The patient was hypotensive and probably developed pneumonia. PAST MEDICAL HISTORY: The patient has anoxic encephalopathy associated with respiratory failure needed to be intubated and placed on mechanical ventilation. He was unable to be weaned and underwent tracheostomy and gastrostomy. Following the respiratory failure, underwent tracheostomy and gastrostomy and referred to subacute unit. He was relatively stable until the current episode to [facility] Intensive Care Unit. ALLERGIES: No known drug allergies. MEDICATIONS: The patient mg daily, vitamin 5000 units daily. He was on acetaminophen for fever every four hours, atorvastatin 80 mg daily. FAMILY HISTORY: Noncontributory. SOCIAL HISTORY: He is single. He is . He was born in has been in [place] for more than 20 years. . HABITS: The patient did smoke one pack a day several years ago. REVIEW OF SYSTEMS: The patient is unable to give any information regarding his state of health. PHYSICAL EXAMINATION: VITAL SIGNS: Blood pressure is 107/61, his pulse is 118, respirations 24, and temperature 99.8. HEENT: Eyes were normal. Pupils were round, equal, and reactive to light. Sclerae was white. Conjunctiva was pink. Extraocular movements were normal. Temporal arteries were palpable bilaterally. There was no bilateral temporal wasting. Visual veliz to confrontation. Neglect sign could not be assessed. ENT, mucous membranes were not dehydrated. Auditory canals were clear and tympanic membranes could not be visualized. Nasal cavity was not congested. Nasal septum was intact. Soft palate was free of ulcerations. Pharynx was clear from exudate. No tonsillar hypertrophy. Uvula denisha to phonation. Tongue was moist, midline, and normally papillated. NECK: Supple. There was no goiter. No mass. No lymphadenopathy. There was no JVD. No bruits. Carotid upstroke was 2+. LUNGS: Clear. HEART: PMI was at the left intercostal space in midclavicular line. There was normal S1 and normal S2. There was no murmur. No arrhythmia. No S3. No S4 No pericardial . ABDOMEN: Soft and nontender without organomegaly. There were no masses palpable. Normal bowel sounds without bruits. There was no guarding. No rebound tenderness. No ascites. No hernia. No CVA tenderness. Liver span was 8 cm, mostly nontender. EXTREMITIES: No cyanosis, no clubbing, and no edema. Extremities are warm. NEUROLOGICAL: Reflexes of biceps, triceps, and brachioradialis were present. Patellar retinaculum were difficult to elicit. Plantars were in extension bilaterally. Cranial nerves from II through XII were symmetric and equal. Cerebellar function, there was no tremor. No nystagmus. No extrapyramidal rigidity. Sensory exam to pinprick, cotton touch, position, and motor strength were difficult to elicit because of the patient's clinical study. LABORATORY DATA: His hemoglobin is 7.5, hematocrit 23.4 with MCV of , WBC of 12.9, and platelets are 88. His BUN and creatinine is 15 and 0.5 respectively. Sodium is 141, potassium 4.5, chloride 105, and CO2 was 27. His total iron was , the TIBC is . His vitamin B12 was more than 2000 and folic acid was more than 10.4. His LDL was 99. IMPRESSION: The patient is anemic and hypotensive . PLAN: The patient will be covered with antibiotics amikacin. Blood culture, urine culture, and sputum culture will be taken. Repeat laboratory tests will be done in a.m. Infectious Disease consulted, Pulmonary consulted, and credit card specialist was called to assist in the management of this case. Matt Floers M.D. DR: HUGO JOB#: [id number] CC: [email or web address]
== END 2018-12-01 19:40 | disposition other institution, planned readmission (95) | DRG 870 ==
LOC: EDBD 22:41 → EMR 22:54 → EDBEDREQ 11-20 00:19 → EDBEDREQSVC 11-20 04:41 → ICU 11-20 08:24 → 2W 11-26 06:25
PROC: 05HM33Z Insertion of Infusion Device into Right Internal Jugular Vein, Percutaneous Approach (ICD-10-PCS; principal; 2018-11-20)
PROC: 5A1955Z Respiratory Ventilation, Greater than 96 Consecutive Hours (ICD-10-PCS; principal; 2018-11-20)
DX: A41.9 Sepsis, unspecified organism (principal); R65.21 Severe sepsis with septic shock; G93.41 Metabolic encephalopathy; J96.20 Acute and chronic respiratory failure, unspecified whether with hypoxia or hypercapnia; J18.9 Pneumonia, unspecified organism; E43 Unspecified severe protein-calorie malnutrition; G93.1 Anoxic brain damage, not elsewhere classified; J44.0 Chronic obstructive pulmonary disease with (acute) lower respiratory infection; I50.32 Chronic diastolic (congestive) heart failure; Z99.11 Dependence on respirator [ventilator] status; N17.9 Acute kidney failure, unspecified; D68.9 Coagulation defect, unspecified; E87.1 Hypo-osmolality and hyponatremia; Z93.0 Tracheostomy status; Z93.1 Gastrostomy status; R13.10 Dysphagia, unspecified; E11.9 Type 2 diabetes mellitus without complications; I11.0 Hypertensive heart disease with heart failure; K21.9 Gastro-esophageal reflux disease without esophagitis; E78.5 Hyperlipidemia, unspecified; Y95 Nosocomial condition; D64.9 Anemia, unspecified; Z68.21 Body mass index [BMI] 21.0-21.9, adult; D69.6 Thrombocytopenia, unspecified; E86.0 Dehydration; Z86.73 Personal history of transient ischemic attack (TIA), and cerebral infarction without residual deficits; E87.5 Hyperkalemia
CPT/HCPCS: 36415; 36600; 71045; 76700; 80048; 80053; 80061; 80150; 80202; 81003; 82164; 82270; 82378; 82550; 82553; 82607; 82728; 82746; 82803; 82962; 83010; 83036; 83540; 83550; 83605; 83615; 83735; 83880; 84100; 84132; 84484; 85007; 85025; 85044; 85060; 85384; 85610; 85651; 85730; 86710; 86850; 86900; 86901; 86920; 87040; 87070; 87081; 87181; 87205; 87324; 93005; 93306; 94002; 94003; 94640; 94664; 96361; 96365; 96368; 99291; J1815; J8499